=== PATIENT | female | born 1945 | race Caucasian/White ===

== ENCOUNTER 2019-08-18 17:31 | Emergency (ER) | payer MEDICARE, SELFPAY ==
[2019-08-18 17:47] VITALS: BP 141/50; PULSE 69; RESP 16; TEMP 37; O2SAT 99
--- NOTE | 2019-08-18 18:01 | ED.DENTAL ---
HPI - Dental/Oral General Chief complaint: Dental/Oral Stated complaint: Toothache Time Seen by Provider: 08/18/19 18:02 Source: patient and RN notes reviewed Mode of arrival: ambulatory Limitations: no limitations History of Present Illness HPI Narrative: This is a 74 years old female presented office for evaluation of dental pain for the last 2-day. Stated she supposed to have 3 teeth removed however she could not afford it at the time but she notes she has to get this done order and will get any better. Denies facial swelling, feeling ill, denies recent antibiotic use. MD Complaint: tooth pain Teeth map: 1. 30-32 needed to be removed. Onset (ago): day(s) (2) Duration: intermittent Severity: moderate Relieving factors: nothing Exacerbating factors: chewing Context: history of dental caries Related Data Home Medications Medication Instructions Recorded Confirmed CoQ-10 1 tablet DAILY 04/30/19 08/18/19 Daily Fiber 1 tablet DAILY 04/30/19 08/18/19 Fish Oil 1 tablet DAILY 04/30/19 08/18/19 Multi Vitamin 1 tablet DAILY 04/30/19 08/18/19 ascorbate calcium (vitamin C) 1 tablet DAILY 04/30/19 08/18/19 aspirin 81 mg PO DAILY 04/30/19 08/18/19 atorvastatin 40 mg PO DAILY 04/30/19 08/18/19 clopidogrel 75 mg PO DAILY 04/30/19 08/18/19 ferrous sulfate 1 tablet DAILY 04/30/19 08/18/19 furosemide 20 mg PO DAILY 04/30/19 08/18/19 glipizide 5 mg PO DAILY 04/30/19 08/18/19 losartan 25 mg PO DAILY 04/30/19 08/18/19 metformin 500 mg PO DAILY 04/30/19 08/18/19 metoprolol succinate 25 mg PO DAILY 04/30/19 08/18/19 omeprazole 40 mg PO DIRECTED 04/30/19 08/18/19 sotalol 120 mg PO DAILY 04/30/19 08/18/19 tamoxifen 20 mg PO DAILY 04/30/19 08/18/19 Allergies Allergy/AdvReac Type Severity Reaction Status Date / Time No Known Allergies Allergy Verified 07/11/18 08:49 Review of Systems Review of Systems: Narrative: CONSTITUTIONAL: Denies fever or feeling ill ENT: Denies throat pain CARDIOVASCULAR: Denies chest pain RESPIRATORY: Denies cough GASTROINTESTINAL: Denies abdominal pain, nausea, vomiting SKIN: Denies rash MUSCULOSKELETAL: Denies acute back pain NEUROLOGIC: Denies lightheaded PMFSH Past Medical History Medical History (Updated 08/18/19 @ 18:14 by SHANTAL Martinez) A-fib Anemia Arthritis CAD (coronary artery disease) Cataracts, bilateral CVA (cerebral vascular accident) DDD (degenerative disc disease) DM (diabetes mellitus) GERD (gastroesophageal reflux disease) History of colonic polyps History of GI bleed History of heart attack History of melena History of rectal polyps Hx of breast cancer Hypercholesteremia Hypertension Shingles TIA (transient ischemic attack) Surgical History Surgical History (Updated 04/30/19 @ 13:34 by Ant Rojas) History of cholecystectomy History of dilation and curettage History of mastectomy History of removal of cyst from finger Hx of bilateral cataract extraction Hx of cardiac cath with stent placement Hx of tubal ligation Family History Family History (Updated 01/02/19 @ 15:49 by DOCTOR UNKNOWN) Sibling Family history of malignant neoplasm of ovary, Onset Age: 60 Other Family history of malignant neoplasm Social History Social History Smoking status: Never smoker Second hand tobacco smoke exposure: No Alcohol intake: never Gender identity (if verbalized by the patient): Female Comments At time of signature, I agree with nursing past medical, surgical, social and family history. There is no relevant family history pertinent to the presenting complaint. Exam Narrative: Exam Narrative: GENERAL: This is a well-nourished, well-developed patient, in no apparent distress. EYES: Sclera and conjunctivae normal ENT: External ears normal. Nose and lips normal. Airway patent.The tooth in question is very carious and the gum is swollen and tender around it. There is no facial swelling, cervical or submandibular lymphadenopathy. The chaparrita
== END 2019-08-18 18:20 | disposition home or self-care (01) ==
PROVIDERS: Emergency Provider Nurse Practitioner; PCP Family Medicine
DX: K02.9 Dental caries, unspecified (principal); I48.91 Unspecified atrial fibrillation; D64.9 Anemia, unspecified; M19.90 Unspecified osteoarthritis, unspecified site; I25.10 Atherosclerotic heart disease of native coronary artery without angina pectoris; Z95.5 Presence of coronary angioplasty implant and graft; Z86.73 Personal history of transient ischemic attack (TIA), and cerebral infarction without residual deficits; E11.9 Type 2 diabetes mellitus without complications; K21.9 Gastro-esophageal reflux disease without esophagitis; I25.2 Old myocardial infarction; Z85.3 Personal history of malignant neoplasm of breast; Z90.10 Acquired absence of unspecified breast and nipple; E78.00 Pure hypercholesterolemia, unspecified; I10 Essential (primary) hypertension; Z98.41 Cataract extraction status, right eye; Z98.42 Cataract extraction status, left eye
CPT/HCPCS: 99213; G0463

== ENCOUNTER 2019-09-18 12:02 | Outpatient (CLI) | payer MEDICARE, SELFPAY ==
[2019-09-18 12:44] LABS: Alanine Aminotransferase 17 U/L (4-35); Blood Urea Nitrogen 12 mg/dL (7-17); Calcium 8.9 mg/dL (8.4-10.2); Carbon Dioxide 30 mmol/L (22-30); Chloride 101 mmol/L (98-107); Cholesterol 126 mg/dL (0-200); Estimated Glomerular Filt Rate > 60; Glucose 116 mg/dL (65-105); HDL Direct 36 mg/dL; Potassium 4.1 mmol/L (3.4-5.0); Sodium 137 mmol/L (137-145); Triglycerides 129 mg/dL (<150)
[2019-09-18 12:55] LABS: LDL Cholesterol Direct 65 mg/dL
[2019-09-18 12:58] LABS: Hemoglobin A1C 7.4 % (<5.7)
== END 2019-09-18 12:03 | disposition home or self-care (01) ==
PROVIDERS: PCP Family Medicine; Visit Provider Family Medicine
DX: E11.65 Type 2 diabetes mellitus with hyperglycemia (principal)
CPT/HCPCS: 36415; 80048; 80061; 83036; 84460

== ENCOUNTER 2019-10-01 12:40 | Emergency (ER) | payer MEDICARE, SELFPAY ==
[2019-10-01 12:55] VITALS: BP 145/71; PULSE 41; RESP 13; TEMP 36.5; O2SAT 99
[2019-10-01 12:56] VITALS: PULSE 42
--- NOTE | 2019-10-01 13:00 | ECG_ITS ---
Measurements Intervals [place] Rate: 54 P: 249 OH: 164 QRS: -28 QRSD: 81 T: 2 QT: 472 QTc: 451 Interpretive Statements ATRIAL TACHYCARDIA WITH SLOW VENTRICULAR RESPONSE DELAYED PRECORDIAL R/S TRANSITION INFERIOR INFARCT, AGE INDETERMINATE BORDERLINE T WAVE ABNORMALITY- ANTERIOR LEADS BASELINE ARTIFACT- V4 ABNORMAL ECG Electronically Signed On 10-01-2019 14:10:31 CDT by Mik Monsalve D.O.
[2019-10-01] MEDS: MECLIZINE HCL 25 MG TABLET PO (13:04)
[2019-10-01] MEDS: SODIUM CHLORIDE 0.9% IV 1,000 ML 999 ML IV CONT (13:05)
[2019-10-01 13:09] LABS: Glucose Point of Care 147 (65-105)
[2019-10-01 13:13] LABS: Basophils Absolute Auto 0.1 K/mm3 (0.0-0.1); Basophils Percent Auto 0.6 % (0.2-1.2); Eosinophils Absolute Auto 0.1 K/mm3 (0-0.3); Eosinophils Percent Auto 0.6 % (0-4.4); Hemoglobin 11.2 g/dL (12.0-15.0); Immature Granulocyte Absolute 0.03 K/mm3 (0.00-0.031); Immature Granulocyte Percent A 0.3 % (0-0.5); Lymphocytes Absolute Auto 2.53 K/mm3 (0.9-3.2); Mean Corpuscular HGB Conc 31.1 g/dl (32-36); Mean Corpuscular Hemoglobin 25.6 pg (26-34); Mean Corpuscular Volume 82.4 fl (80-100); Mean Platelet Volume 12.7 fl (7.4-10.4); Monocytes Absolute Auto 0.7 K/mm3 (0.1-0.6); Monocytes Percent Auto 6.1 % (2.6-8.5); Neutrophils Absolute Auto 8.1 K/mm3 (1.3-6.7); Neutrophils Percent Auto 70.4 % (45.5-73.1); Platelet Count Result 144 k/mm3 (150-375); Red Blood Count 4.37 M/mm3 (4.2-5.4); Red Cell Distribution Width 14.5 % (11.5-14.5); White Blood Count 11.5 K/mm3 (4.5-10.0)
[2019-10-01 13:33] LABS: Blood Urea Nitrogen 12 mg/dL (7-17); Calcium 9.2 mg/dL (8.4-10.2); Carbon Dioxide 29 mmol/L (22-30); Chloride 101 mmol/L (98-107); Estimated Glomerular Filt Rate > 60; Glucose 149 mg/dL (65-105); Sodium 137 mmol/L (137-145)
[2019-10-01 13:34] LABS: Add Urine Microscopic? NO; Appearance Urine Clear (Clear); Bacteria Urine Trace /hpf; Bilirubin Urine Negative (Negative); Blood Urine Negative (Negative); Color Urine Straw (Yellow); Glucose Urine UA Negative (Negative); Ketones Urine Negative (Negative); Leukocyte Esterase Ur Negative LEU/UL (Negative); Mucus Urine Rare /lpf; Nitrate Urine Negative (Negative); Protein Urine Negative (Negative); RBC Urine 0-2 /hpf (0-2); Specific Grav Ur 1.009 (1.001-1.035); Squamous Epithelial Cell Urine Occasional /hpf (Few); Urobilinogen Urine Negative mg/dL (<2.0); WBC Urine 0-3 /hpf
[2019-10-01 14:04] VITALS: BP 135/66; PULSE 58; RESP 14; O2SAT 96
[2019-10-01 15:10] VITALS: BP 122/59; PULSE 58; RESP 19; O2SAT 98
--- NOTE | 2019-10-01 15:11 | ED.NEUROSD ---
HPI - Neuro Symptoms/Deficit General Chief Complaint: Neuro Symptoms/Deficit Stated Complaint: Mini stroke or diabetes acting up Time Seen by Provider: 10/01/19 12:47 History of Present Illness HPI Narrative: Patient is a 74-year-old female who presents the ER with feelings of dizziness. Patient has history of TIA as well as history of diabetes. Concerned her blood sugar may be getting low. Patient reports that when she lays backwards or tilts her head backwards she feels entire removing or everything is spinning. She then feels hot and flushed over her entire body. No focal deficit in arm or leg. No slurred speech. Symptoms will last for several minutes and are occurring about every 1/2 hour. Does not take any medications. Related Data Home Medications Medication Instructions Recorded Confirmed CoQ-10 1 tablet DAILY 04/30/19 08/18/19 Daily Fiber 1 tablet DAILY 04/30/19 08/18/19 Fish Oil 1 tablet DAILY 04/30/19 08/18/19 Multi Vitamin 1 tablet DAILY 04/30/19 08/18/19 ascorbate calcium (vitamin C) 1 tablet DAILY 04/30/19 08/18/19 atorvastatin 40 mg PO DAILY 04/30/19 08/18/19 clopidogrel 75 mg PO DAILY 04/30/19 08/18/19 ferrous sulfate 1 tablet DAILY 04/30/19 08/18/19 furosemide 20 mg PO DAILY 04/30/19 08/18/19 glipizide 5 mg PO DAILY 04/30/19 08/18/19 losartan 25 mg PO DAILY 04/30/19 08/18/19 metformin 500 mg PO DAILY 04/30/19 08/18/19 metoprolol succinate 25 mg PO DAILY 04/30/19 08/18/19 omeprazole 40 mg PO DIRECTED 04/30/19 08/18/19 sotalol 120 mg PO DAILY 04/30/19 08/18/19 tamoxifen 20 mg PO DAILY 04/30/19 08/18/19 Allergies Allergy/AdvReac Type Severity Reaction Status Date / Time No Known Allergies Allergy Verified 10/01/19 13:00 Review of Systems Review of Systems: All systems reviewed & are unremarkable except as noted in HPI and below Constitutional: Constitutional: Denies chills, Reports fatigue and Denies fever(s) ENT: Reports vertigo, Denies nasal congestion and Denies sore throat Cardiovascular: Cardiovascular: Denies chest pain and Denies radiating jaw, neck or arm pain Respiratory: Respiratory: Denies cough, Denies dyspnea and Denies wheezing Gastrointestinal: Gastrointestinal: Denies abdominal pain, Denies nausea and Denies vomiting Neurologic: Reports dizziness, Denies syncope, Denies focal weakness and Denies numbness PMFSH Past Medical History Medical History (Updated 10/01/19 @ 15:36 by Crow Thornton MD) A-fib Anemia Arthritis CAD (coronary artery disease) Cataracts, bilateral CVA (cerebral vascular accident) DDD (degenerative disc disease) DM (diabetes mellitus) GERD (gastroesophageal reflux disease) History of colonic polyps History of GI bleed History of heart attack History of melena History of rectal polyps Hx of breast cancer Hypercholesteremia Hypertension Shingles TIA (transient ischemic attack) Surgical History Surgical History (Updated 04/30/19 @ 13:34 by Ant Rojas) History of cholecystectomy History of dilation and curettage History of mastectomy History of removal of cyst from finger Hx of bilateral cataract extraction Hx of cardiac cath with stent placement Hx of tubal ligation Family History Family History (Updated 01/02/19 @ 15:49 by DOCTOR UNKNOWN) Sibling Family history of malignant neoplasm of ovary, Onset Age: 60 Other Family history of malignant neoplasm Social History Social History Smoking status: Never smoker Second hand tobacco smoke exposure: No Alcohol intake: never Gender identity (if verbalized by the patient): Female Exam Narrative: Exam Narrative: GENERAL: Well-appearing, well-nourished, and in no acute distress. HEAD: Normocephalic, atraumatic. EYES: PERRL and EOMI. right gaze nystagmus ENT: Mucous membranes moist. TMs normal bilaterally. NECK: Supple. CHEST: Clear to auscultation. No respiratory distress. HEART: Regular rate and rhythm. Normal peripheral pulses. ABDOMEN: Soft, nontender,
[2019-10-01 15:47] VITALS: BP 120/60; PULSE 55; RESP 16; O2SAT 98
== END 2019-10-01 15:48 | disposition home or self-care (01) ==
PROVIDERS: Emergency Provider Emergency Medicine; PCP Family Medicine
DX: R42 Dizziness and giddiness (principal); R00.1 Bradycardia, unspecified; I48.91 Unspecified atrial fibrillation; D64.9 Anemia, unspecified; M19.90 Unspecified osteoarthritis, unspecified site; I25.10 Atherosclerotic heart disease of native coronary artery without angina pectoris; E11.9 Type 2 diabetes mellitus without complications; I10 Essential (primary) hypertension; Z86.73 Personal history of transient ischemic attack (TIA), and cerebral infarction without residual deficits; Z79.84 Long term (current) use of oral hypoglycemic drugs; Z85.3 Personal history of malignant neoplasm of breast; E78.00 Pure hypercholesterolemia, unspecified; Z95.5 Presence of coronary angioplasty implant and graft; Z98.42 Cataract extraction status, left eye; Z98.41 Cataract extraction status, right eye; Z90.10 Acquired absence of unspecified breast and nipple
CPT/HCPCS: 36415; 80048; 81003; 85025; 93005; 96360; 99283; A9270; J7030

== ENCOUNTER 2019-10-04 10:32 | Outpatient (CLI) | payer MEDICARE, SELFPAY ==
--- NOTE | ~2019-10-04 | MR_ITS ---
EXAMINATION: MR brain/brain stem wo con DATE: 10/04/2019 11:48 INDICATION: TIA. TECHNIQUE: Magnetic resonance imaging (MRI) of the brain and brainstem was performed without intraven ous contrast. Sequences included sagittal and axial T1-weighted SE, axial diffusion-weighted FS SE, a xial T2*-weighted GRE, axial T2-weighted FLAIR Propeller, and axial T2-weighted Propeller. Apparent d iffusion coefficient (ADC) maps were created. COMPARISON: CT dated 02/17/2008. FINDINGS: Normal brain parenchymal volume. Normal david-white differentiation. There are scattered mil d periventricular and subcortical white matter changes, most likely related to small vessel ischemic disease (microangiopathy). No ventriculomegaly or midline shift. No acute intracranial infarction or hemorrhage. No significant mass or mass effect. Midline sagittal images are unremarkable. Structures of the posterior fossa including 7/8th cranial nerve complexes are normal. Orbits are symmetric witho ut disconjugate gaze. Paranasal sinuses are unremarkable. IMPRESSION: 1. No acute intracranial abnormality. 2: Chronic age-related findings. Reviewed, dictated and finalized at location A.
== END 2019-10-04 10:33 | disposition home or self-care (01) ==
PROVIDERS: PCP Family Medicine; Visit Provider Family Medicine
DX: G45.9 Transient cerebral ischemic attack, unspecified (principal)
CPT/HCPCS: 70551

== ENCOUNTER 2020-01-16 17:15 | Outpatient (CLI) | payer MEDICARE, SELFPAY ==
--- NOTE | ~2020-01-16 | MM_ITS ---
EXAMINATION: MM screening [facility] BI w david HISTORY: Screening TECHNIQUE: Craniocaudal and mediolateral oblique 3-D tomosynthesis images were obtained and synthetic 2-D images were generated. CAD analysis was submitted and interpreted. COMPARISON: Comparison to multiple prior studies sequentially, with oldest reviewed study dated 06/2013. BREAST PARENCHYMAL COMPOSITION: Breast composed of scattered areas of fibroglandular density FINDINGS: There is distortion in both breasts with areas of coarse calcification, consistent with fat necrosis. There is no evidence of suspicious mass, calcification, or architectural distortion to sug gest malignancy in either breast. There has been no suspicious interval change. IMPRESSION: 1. No mammographic evidence of malignancy. 2. Recommend routine screening mammography in one year. BI-RADS Category 2: Benign finding(s). Reviewed, dictated and finalized at location A.
== END 2020-01-16 17:16 | disposition home or self-care (01) ==
LOC: ANHIMG 17:20
PROVIDERS: PCP Family Medicine; Visit Provider Internal Medicine Medical Oncology
DX: Z12.31 Encounter for screening mammogram for malignant neoplasm of breast (principal)
CPT/HCPCS: 77063; 77067

== ENCOUNTER 2020-04-13 03:34 | Outpatient (CLI) | payer MEDICARE, SELFPAY ==
[2020-04-13 20:39] LABS: SARS-CoV-2 RNA PCR Negative
== END 2020-04-13 03:35 | disposition home or self-care (01) ==
LOC: ANHCOVIDDT 03:34
PROVIDERS: PCP Family Medicine; Visit Provider Internal Medicine Gastroenterology
DX: Z01.812 Encounter for preprocedural laboratory examination (principal); Z20.828 Contact with and (suspected) exposure to other viral communicable diseases
CPT/HCPCS: 87635; C9803; U0003

== ENCOUNTER 2020-04-16 00:28 | Day surgery (SDC) | payer MEDICARE, SELFPAY ==
[2020-04-09 15:20] VITALS: BMI 32.5
--- NOTE | 2020-04-16 08:02 | WPDANESEPPF ---
Anes - Initial Pre Proc Eval Procedure: Operation Date: 04/16/20 10:00 Proposed Procedures p Esophagogastroduodenoscopy & Screening Colonoscopy - Jr Leon MD Date/Time: 04/16/20 08:02 Surgeon: Jr Leon MD Pre Op Diagnosis: Hx Of Colon Polyps, Gastric Polyps Patient Data Age: 75 Gender: F Height: 1.57 m Weight: 80.9 kg Allergies Allergy/AdvReac Type Severity Reaction Status Date / Time No Known Allergies Allergy Verified 04/16/20 08:56 Home Medications Medication Instructions Recorded Confirmed Type CoQ-10 1 tablet DAILY 04/30/19 04/09/20 History Daily Fiber 1 tablet BID 04/30/19 04/09/20 History Fish Oil 1 tablet DAILY 04/30/19 04/09/20 History Multi Vitamin 1 tablet DAILY 04/30/19 04/09/20 History ascorbate calcium (vitamin C) 1 tablet DAILY 04/30/19 04/09/20 History atorvastatin 40 mg PO DAILY 04/30/19 04/09/20 History clopidogrel 75 mg PO DAILY 04/30/19 04/09/20 History ferrous sulfate 1 tablet DAILY 04/30/19 04/09/20 History furosemide 20 mg PO DAILY 04/30/19 04/09/20 History glipizide 5 mg PO BID 04/30/19 04/09/20 History losartan 25 mg PO DAILY 04/30/19 04/09/20 History metformin 500 mg PO DAILY 04/30/19 04/09/20 History metoprolol succinate 25 mg PO DAILY 04/30/19 04/09/20 History omeprazole 40 mg PO DAILY 04/30/19 04/09/20 History sotalol 120 mg PO BID 04/30/19 04/16/20 History tamoxifen 20 mg PO DAILY 04/30/19 04/09/20 History Patient hx anesthesia problems: none Family hx anesthesia problems: none PMFSH Past Medical History Medical History (Updated 04/16/20 @ 08:05 by Pierre Lemos MD) A-fib Anemia Arthritis CAD (coronary artery disease) Cataracts, bilateral CVA (cerebral vascular accident) DDD (degenerative disc disease) DM (diabetes mellitus) GERD (gastroesophageal reflux disease) History of colonic polyps History of GI bleed History of heart attack History of melena History of rectal polyps Hx of breast cancer Hypercholesteremia Hypertension Obesity Shingles TIA (transient ischemic attack) Surgical History Surgical History History of cholecystectomy History of dilation and curettage History of mastectomy History of removal of cyst from finger Hx of bilateral cataract extraction Hx of cardiac cath with stent placement Hx of tubal ligation Family History Family History Sibling Family history of malignant neoplasm of ovary, Onset Age: 60 Other Family history of malignant neoplasm Social History Social History Smoking status: Never smoker Second hand tobacco smoke exposure: No Alcohol intake: never Substance use: never Substance use type: does not use Living arrangements: with family Gender identity (if verbalized by the patient): Female Sexual Orientation (if Verbalized by the Patient): Straight or Heterosexual Spiritual care concerns: No Anes - Eval Final PreProcedure Day of Procedure 04/16/20 08:02 Patient weight: obese Heart: regular rate and rhythm Lungs: clear to auscultation and normal air movement Airway: Mallampati scale class II Neurological: alert and oriented Last oral intake: >/= 8 hours ASA classification: III Emergent: no Anesthetic plan: proceed Anesthesia type and monitoring: general GIVS Informed Consent: The patient's anesthetic plan and its attendant risks and benefits were discussed with the patient/family/POA. Questions were solicited and answers provided to the satisfaction of the patient/family/POA.
[2020-04-16 09:04] VITALS: BP 157/65; PULSE 68; RESP 16; TEMP 36.8; O2SAT 98
[2020-04-16 09:20] LABS: Glucose Point of Care 141 (65-105)
[2020-04-16] MEDS: LACTATED RINGERS 1,000 ML 150 ML IV CONT (09:24)
--- NOTE | 2020-04-16 09:28 | WPDGICN ---
Assessment and Plan Assessment and plan (1) Gastric polyps: Code(s): K31.7 - Polyp of stomach and duodenum Status: Acute Assessment and Plan: Patient has a history of very large bleeding gastric polyps. Plan is for follow-up examination at this time. Patient remains on omeprazole which will be continued. Further recommendations may be given after endoscopy. (2) History of colon polyps: Code(s): Z86.010 - Personal history of colonic polyps Status: Acute Assessment and Plan: Patient has a history of recurrent colon polyps. Most recent colonoscopy 5 years ago. Plans for surveillance colonoscopy at this time. (3) A-fib: Code(s): I48.91 - Unspecified atrial fibrillation Status: Acute Assessment and Plan: <del>Patient</del> <del>is</del> <del>on</del> <del>Plavix</del> <del>gives</del> <del>a</del> <del>history</del> <del>of</del> <del>atrial</del> <del>fibrillation</del> <del>anticoagulation</del> <del>will</del> <del>be</del> <del>held</del> <del>in</del> <del>anticipation</del> <del>of</del> <del>endoscopy</del> <del>and</del> <del>restarted</del> <del>shortly</del> <del>thereafter.</del> GI Consult Note Consult date/time: 04/16/20 09:28 HPI: Jackie Waddell is a 75 year old female Seen in evaluation at the request of Dr. Dk Kong. patient has a history of colon and gastric polyps. At the time of endoscopy 1 year ago had rather large pre-pyloric gastric polyp that was partially obstructing. Patient presents today for follow-up examination. She denies any abdominal pain. Denies any nausea or bleeding. Previous melena has resolved. Additionally patient has a history of colon polyps. She has had these on several occasions in the past most recently 5 years ago. She denies any blood in her stools. Her family history is noncontributory. Review of Systems Review of Systems: All systems reviewed & are unremarkable except as noted in HPI and below PMFSH Past Medical History Medical History (Updated 04/16/20 @ 09:31 by Jr Leon MD) A-fib Anemia Arthritis CAD (coronary artery disease) Cataracts, bilateral CVA (cerebral vascular accident) DDD (degenerative disc disease) DM (diabetes mellitus) GERD (gastroesophageal reflux disease) History of colonic polyps History of GI bleed History of heart attack History of melena History of rectal polyps Hx of breast cancer Hypercholesteremia Hypertension Obesity Shingles TIA (transient ischemic attack) Surgical History Surgical History History of cholecystectomy History of dilation and curettage History of mastectomy History of removal of cyst from finger Hx of bilateral cataract extraction Hx of cardiac cath with stent placement Hx of tubal ligation Family History Family History Sibling Family history of malignant neoplasm of ovary, Onset Age: 60 Other Family history of malignant neoplasm Social History Social History Smoking status: Never smoker Second hand tobacco smoke exposure: No Alcohol intake: never Substance use: never Substance use type: does not use Living arrangements: with family Gender identity (if verbalized by the patient): Female Sexual Orientation (if Verbalized by the Patient): Straight or Heterosexual Spiritual care concerns: No Meds Home Medications and Allergies Home Medications Medication Instructions Recorded Confirmed Type CoQ-10 1 tablet DAILY 04/30/19 04/09/20 History Daily Fiber 1 tablet BID 04/30/19 04/09/20 History Fish Oil 1 tablet DAILY 04/30/19 04/09/20 History Multi Vitamin 1 tablet DAILY 04/30/19 04/09/20 History ascorbate calcium (vitamin C) 1 tablet DAILY 04/30/19 04/09/20 History atorvastatin 40 mg PO DAILY 04/30/19 04/09/20 History clopidogrel 75 mg PO DAILY 1
[2020-04-16] MEDS: BENZOCAINE (*SP) 60 ML SPRAY CAN (HURRICAINE) 1 SPRAY MUCOUS MEM (10:35)
--- NOTE | 2020-04-16 10:57 | SUR.OPER ---
EGD ENDED 1050, COLONOSCOPY STARTED 1056
[2020-04-16 11:12] VITALS: BP 116/50; PULSE 58; RESP 19; O2SAT 97
[2020-04-16 11:22] VITALS: BP 131/56; PULSE 65; RESP 18; O2SAT 98
[2020-04-16 11:32] VITALS: BP 150/68; PULSE 65; RESP 18; O2SAT 98
== END 2020-04-16 12:03 | disposition home or self-care (01) ==
PROVIDERS: PCP Family Medicine; Visit Provider Internal Medicine Gastroenterology
PROC: 0DJ08ZZ Inspection of Upper Intestinal Tract, Via Natural or Artificial Opening Endoscopic (ICD-10-PCS; CPT 43235; principal; 2020-04-16 10:00)
DX: Z12.11 Encounter for screening for malignant neoplasm of colon (principal); D12.4 Benign neoplasm of descending colon; K64.8 Other hemorrhoids; K31.7 Polyp of stomach and duodenum; I48.91 Unspecified atrial fibrillation; I25.10 Atherosclerotic heart disease of native coronary artery without angina pectoris; I10 Essential (primary) hypertension; E78.00 Pure hypercholesterolemia, unspecified; K21.9 Gastro-esophageal reflux disease without esophagitis; E11.9 Type 2 diabetes mellitus without complications; I25.2 Old myocardial infarction; Z86.73 Personal history of transient ischemic attack (TIA), and cerebral infarction without residual deficits; D64.9 Anemia, unspecified; Z85.3 Personal history of malignant neoplasm of breast; E66.9 Obesity, unspecified; Z68.32 Body mass index [BMI] 32.0-32.9, adult; Z79.84 Long term (current) use of oral hypoglycemic drugs; Z79.02 Long term (current) use of antithrombotics/antiplatelets; Z79.810 Long term (current) use of selective estrogen receptor modulators (SERMs)
CPT/HCPCS: 45385; 43251; 88305; J1100; J2405; J2704; J7120

== ENCOUNTER 2020-04-19 22:50 | Emergency (ER) | payer MEDICARE, SELFPAY ==
--- NOTE | ~2020-04-19 | XR_ITS ---
EXAMINATION: XR hip LT 2V w AP pelvis DATE: 04/20/2020 03:01 INDICATION: Left hip pain. TECHNIQUE: An anteroposterior view of the pelvis and 2 views of left hip were obtained. COMPARISON: Pelvis and left hip radiograph 05/06/2016 FINDINGS: There is dextrocurvature and moderate spondylosis of lumbar spine. There is mild osteoarthr itis of the hips. No fracture. IMPRESSION: 1. Mild osteoarthritis of the hips. Reviewed, dictated and finalized at location A. NEERING EQUIPMENT OPERATOR
--- NOTE | ~2020-04-19 | CT_ITS ---
EXAMINATION: CT knee LT wo con DATE: 04/20/2020 05:00 INDICATION: Left knee pain. TECHNIQUE: Computed tomography (CT) of the left knee was performed without intravenous contrast. Auto mated exposure control and iterative reconstruction technique were employed. The dose-length product was 471.38 mGy-cm. COMPARISON: Left knee radiographs 04/20/2020 FINDINGS: Bone alignment is normal. No fracture. There is moderate osteoarthritis of medial and later al compartments and mild osteoarthritis of patellofemoral compartment. There is a large knee joint ef fusion with loose bodies measuring up to 8 mm in the intercondylar notch. There is a moderate-sized B karrie's cyst. IMPRESSION: 1. Moderate left knee osteoarthritis. 2. Large left knee joint effusion with loose bodies. 3. Moderate-sized Crawford's cyst. Reviewed, dictated and finalized at location A. E TESTER
--- NOTE | ~2020-04-19 | XR_ITS ---
EXAMINATION: XR knee LT min 4V DATE: 04/20/2020 03:01 INDICATION: Left knee pain and swelling. TECHNIQUE: 4 views of left knee were obtained. COMPARISON: Left knee radiographs 01/02/2019 FINDINGS: Bone alignment is normal. No fracture. There is moderate osteoarthritis of medial compartme nt and mild osteoarthritis of lateral and patellofemoral compartments. There is a large knee joint ef fusion. IMPRESSION: 1. Moderate left knee osteoarthritis. 2. Large left knee joint effusion. Reviewed, dictated and finalized at location A. INTERN
[2020-04-19 23:08] VITALS: BP 147/46; PULSE 69; RESP 18; TEMP 36.7; O2SAT 97
[2020-04-20] MEDS: ONDANSETRON INJ 4 MG/2 ML VIAL IV PUSH (02:29)
[2020-04-20] MEDS: MORPHINE SULFATE (*CRX) 4 MG/ML INJ IV PUSH ×2 (02:32→03:59)
--- NOTE | 2020-04-20 02:43 | ED.LOWEXIN ---
HPI - Extremity Injury (Lower) General Chief Complaint: Extremity Injury, Lower <Rosemary Obrien MD - Last Filed: 04/24/20 18:10> Stated Complaint: left leg pain, no injury <Rosemary Obrien MD - Last Filed: 04/24/20 18:10> Time Seen by Provider: 04/20/20 01:42 <Rosemary Obrien MD - Last Filed: 04/24/20 18:10> Source: patient <Rosemary Obrien MD - Last Filed: 04/24/20 18:10> Mode of arrival: wheelchair <Rosemary Obrien MD - Last Filed: 04/24/20 18:10> Limitations: no limitations <Rosemary Obrien MD - Last Filed: 04/24/20 18:10> History of Present Illness HPI Narrative: This patient is a 75 year old female with history of left knee osteoarthritis who presents for evaluation of left leg pain starting Monday morning. She reports on Monday she was able to walk around [employer] with out any difficulty. She woke up Monday morning with pain to her entire left leg. She states her pain is worse in her left calf and behind her left knee. She states the pain has progress and she feels it up to her left thigh. She has pain with any movement. She has also noticed swelling to her left lower leg and left knee. She denies any injury. Her states Dr. Sidhu has spoken about a left knee replacement. <Rosemary Obrien MD - Last Filed: 04/24/20 18:10> Related Data Home Medications: Home Medications Medication Instructions Recorded Confirmed CoQ-10 1 tablet DAILY 04/30/19 04/22/20 Daily Fiber 1 tablet BID 04/30/19 04/22/20 Fish Oil 1 tablet DAILY 04/30/19 04/22/20 Multi Vitamin 1 tablet DAILY 04/30/19 04/22/20 ascorbate calcium (vitamin C) 1 tablet DAILY 04/30/19 04/22/20 atorvastatin 40 mg PO DAILY 04/30/19 04/22/20 clopidogrel 75 mg PO DAILY 04/30/19 04/22/20 ferrous sulfate 1 tablet DAILY 04/30/19 04/22/20 glipizide 5 mg PO BID 04/30/19 04/22/20 losartan 25 mg PO DAILY 04/30/19 04/22/20 metformin 500 mg PO DAILY 04/30/19 04/22/20 metoprolol succinate 25 mg PO DAILY 04/30/19 04/22/20 omeprazole 40 mg PO DAILY 04/30/19 04/22/20 sotalol 120 mg PO BID 04/30/19 04/22/20 tamoxifen 20 mg PO DAILY 04/30/19 04/22/20 <Rosemary Obrien MD - Last Filed: 04/24/20 18:10> Allergies/Adverse Reactions: Allergies Allergy/AdvReac Type Severity Reaction Status Date / Time No Known Allergies Allergy Verified 04/16/20 08:56 <Rosemary Obrien MD - Last Filed: 04/24/20 18:10> Review of Systems Review of Systems: All systems reviewed & are unremarkable except as noted in HPI and below <Rosemary Obrien MD - Last Filed: 04/24/20 18:10> Constitutional: Constitutional: Denies chills and Denies fever(s) <Rosemary Obrien MD - Last Filed: 04/24/20 18:10> Cardiovascular: Cardiovascular: Denies chest pain <Rosemary Obrien MD - Last Filed: 04/24/20 18:10> Respiratory: Respiratory: Denies cough and Denies dyspnea <Rosemary Obrien MD - Last Filed: 04/24/20 18:10> [facility] Past Medical History Medical History: Medical History A-fib Anemia Arthritis CAD (coronary artery disease) Cataracts, bilateral CVA (cerebral vascular accident) DDD (degenerative disc disease) DM (diabetes mellitus) GERD (gastroesophageal reflux disease) History of colonic polyps History of GI bleed History of heart attack History of melena History of rectal polyps Hx of breast cancer Hypercholesteremia Hypertension Obesity Shingles TIA (transient ischemic attack) <Rosemary Obrien MD - Last Filed: 04/24/20 18:10> Surgical History Surgical History: Surgical History History of cholecystectomy History of dilation and curettage History of mastectomy History of removal of cyst from finger Hx of bilateral cataract extraction Hx of cardiac cath with stent placement Hx of tubal ligation <Rosemary Obrien MD - Last Filed: 04/24/20 18:10> Family History
[2020-04-20 02:48] LABS: Basophils Percent Auto 0.2 % (0.2-1.2); Eosinophils Percent Auto 0.1 % (0-4.4); Hematocrit 33.8 % (37.0-47.0); Hemoglobin 10.5 g/dL (12.0-15.0); Immature Granulocyte Absolute 0.03 K/mm3 (0.00-0.031); Immature Granulocyte Percent A 0.2 % (0-0.5); Lymphocytes Absolute Auto 1.87 K/mm3 (0.9-3.2); Lymphocytes Percent Auto 14.9 % (18.3-44.2); Mean Corpuscular HGB Conc 31.1 g/dl (32-36); Mean Corpuscular Hemoglobin 25.6 pg (26-34); Mean Corpuscular Volume 82.4 fl (80-100); Mean Platelet Volume 12.7 fl (7.4-10.4); Monocytes Absolute Auto 1.2 K/mm3 (0.1-0.6); Monocytes Percent Auto 9.7 % (2.6-8.5); Neutrophils Absolute Auto 9.4 K/mm3 (1.3-6.7); Neutrophils Percent Auto 74.9 % (45.5-73.1); Platelet Count Result 119 k/mm3 (150-375); Red Cell Distribution Width 14.6 % (11.5-14.5); White Blood Count 12.6 K/mm3 (4.5-10.0)
[2020-04-20 02:49] LABS: Alanine Aminotransferase 16 U/L (4-35); Albumin Level 3.4 g/dL (3.5-5.1); Alkaline Phosphatase 66 U/L (38-126); Anion Gap 6 mmol/L (8-16); Aspartate Amino Transferase 26 U/L (14-36); Bilirubin,Total 0.5 mg/dL (0.2-1.3); Blood Urea Nitrogen 11 mg/dL (7-17); Calcium 8.8 mg/dL (8.4-10.2); Carbon Dioxide 31 mmol/L (22-30); Chloride 102 mmol/L (98-107); Creatine Kinase 34 U/L (30-135); Estimated Glomerular Filt Rate > 60; Glucose 186 mg/dL (65-105); Potassium 3.7 mmol/L (3.4-5.0); Sodium 139 mmol/L (137-145)
[2020-04-20 02:51] LABS: INR 1.2; Prothrombin Time 15.3 Seconds (11.1-14.7)
[2020-04-20 02:52] LABS: Partial Thromboplastin Time 31.2 SECONDS (22.3-36.8)
[2020-04-20 02:54] LABS: D Dimer 0.43 ug/mL (<0.48)
[2020-04-20 02:57] LABS: CRP 2.8 mg/dL (<1.0)
[2020-04-20] MEDS: LIDOCAINE HCL 1% LOCAL INJ 20 ML VIAL (04:35)
[2020-04-20] MEDS: diazePAM INJ (*CRX) 10 MG/2 ML SYRINGE 2.5 MG IV PUSH (04:56)
--- NOTE | 2020-04-20 07:15 | PC.NURSE ---
Report received from ROSELINE Lin. Fluid aspirate from knee walked down to lab.
[2020-04-20 08:10] LABS: Source Synovial Fluid Synovial fluid
[2020-04-20 08:11] LABS: Appearance Synovial Fluid Cloudy (Clear); Color Synovial Fluid Red (Colorless); Monocytes Synovial Fluid 3 %; Neutrophils Synovial Fluid 95 % (0-25)
[2020-04-20 08:12] LABS: Other Cells Synovial Fluid 2 %
[2020-04-20 08:29] LABS: Crystals Synovial Fluid Few Cppd (None Seen)
[2020-04-20] MEDS: predniSONE 20 MG TABLET 40 MG PO (10:11)
[2020-04-22 13:38] LABS: Glucose Synovial Fluid 53 mg/dL
== END 2020-04-20 10:12 | disposition home or self-care (01) ==
PROVIDERS: General Practice; Emergency Provider Emergency Medicine; PCP Family Medicine
DX: M25.462 Effusion, left knee (principal); M79.605 Pain in left leg; M11.262 Other chondrocalcinosis, left knee; I48.91 Unspecified atrial fibrillation; D64.9 Anemia, unspecified; Z86.73 Personal history of transient ischemic attack (TIA), and cerebral infarction without residual deficits; E11.9 Type 2 diabetes mellitus without complications; K21.9 Gastro-esophageal reflux disease without esophagitis; I25.2 Old myocardial infarction; Z87.19 Personal history of other diseases of the digestive system; Z85.3 Personal history of malignant neoplasm of breast; E78.00 Pure hypercholesterolemia, unspecified; I10 Essential (primary) hypertension; E66.9 Obesity, unspecified; Z98.42 Cataract extraction status, left eye; Z98.41 Cataract extraction status, right eye; M17.12 Unilateral primary osteoarthritis, left knee; Z79.84 Long term (current) use of oral hypoglycemic drugs
CPT/HCPCS: 20610; 36415; 73502; 73564; 73700; 80053; 82550; 82945; 84157; 84550; 85025; 85380; 85610; 85730; 86140; 87070; 87075; 87205; 88108; 89051; 89060; 96374; 96375; 96376; 99284; J0131; J2270; J2405; J3360; J7512

== ENCOUNTER 2020-05-06 09:47 | Outpatient (CLI) | payer MEDICARE, SELFPAY ==
[2020-05-06 10:43] LABS: Hematocrit 33.8 % (37.0-47.0); Hemoglobin 10.6 g/dL (12.0-15.0); Mean Corpuscular HGB Conc 31.4 g/dl (32-36); Mean Corpuscular Volume 79.7 fl (80-100); Mean Platelet Volume 12.4 fl (7.4-10.4); Platelet Count Result 114 k/mm3 (150-375); Red Blood Count 4.24 M/mm3 (4.2-5.4); Red Cell Distribution Width 14.2 % (11.5-14.5); White Blood Count 9.2 K/mm3 (4.5-10.0)
[2020-05-06 10:58] LABS: Alanine Aminotransferase 18 U/L (4-35); Anion Gap 5 mmol/L (8-16); Blood Urea Nitrogen 12 mg/dL (7-17); Calcium 8.9 mg/dL (8.4-10.2); Carbon Dioxide 33 mmol/L (22-30); Chloride 101 mmol/L (98-107); Cholesterol 132 mg/dL (0-200); Estimated Glomerular Filt Rate > 60; Glucose 154 mg/dL (65-105); HDL Direct 41 mg/dL; Potassium 3.7 mmol/L (3.4-5.0); Sodium 139 mmol/L (137-145); Triglycerides 135 mg/dL (<150)
[2020-05-06 11:08] LABS: LDL Cholesterol Direct 66 mg/dL
[2020-05-06 12:10] LABS: MALB Creatinine Ratio 17.2 mg/g (0-30); Microalbumin Urine Random 31.3 mg/L (0-16.7)
[2020-05-06 12:31] LABS: Hemoglobin A1C 7.6 % (<5.7)
== END 2020-05-06 09:48 | disposition home or self-care (01) ==
LOC: ANHLAB 09:51
PROVIDERS: PCP Family Medicine; Visit Provider Family Medicine
DX: E11.65 Type 2 diabetes mellitus with hyperglycemia (principal); D64.9 Anemia, unspecified
CPT/HCPCS: 36415; 80048; 80061; 82043; 83036; 84460; 85027

== ENCOUNTER 2020-06-18 09:54 | Outpatient (CLI) | payer MEDICARE, SELFPAY ==
[2020-06-18 10:12] LABS: Basophils Percent Auto 0.3 % (0.2-1.2); Eosinophils Percent Auto 0.4 % (0-4.4); Hematocrit 35.8 % (37.0-47.0); Immature Granulocyte Absolute 0.03 K/mm3 (0.00-0.031); Immature Granulocyte Percent A 0.3 % (0-0.5); Lymphocytes Absolute Auto 1.88 K/mm3 (0.9-3.2); Lymphocytes Percent Auto 18.4 % (18.3-44.2); Mean Corpuscular HGB Conc 30.7 g/dl (32-36); Mean Corpuscular Hemoglobin 25.1 pg (26-34); Mean Corpuscular Volume 81.7 fl (80-100); Mean Platelet Volume 12.2 fl (7.4-10.4); Monocytes Absolute Auto 0.6 K/mm3 (0.1-0.6); Monocytes Percent Auto 5.7 % (2.6-8.5); Neutrophils Absolute Auto 7.6 K/mm3 (1.3-6.7); Neutrophils Percent Auto 74.9 % (45.5-73.1); Platelet Count Result 128 k/mm3 (150-375); Red Blood Count 4.38 M/mm3 (4.2-5.4); Red Cell Distribution Width 14.5 % (11.5-14.5); White Blood Count 10.2 K/mm3 (4.5-10.0)
[2020-06-18 10:21] LABS: Hemoglobin A1C 7.8 % (<5.7)
[2020-06-18 10:25] LABS: Alanine Aminotransferase 18 U/L (4-35); Albumin Level 3.6 g/dL (3.5-5.1); Alkaline Phosphatase 70 U/L (38-126); Anion Gap 5 mmol/L (8-16); Aspartate Amino Transferase 37 U/L (14-36); Bilirubin,Total 0.5 mg/dL (0.2-1.3); Blood Urea Nitrogen 10 mg/dL (7-17); Calcium 8.6 mg/dL (8.4-10.2); Carbon Dioxide 32 mmol/L (22-30); Chloride 101 mmol/L (98-107); Estimated Glomerular Filt Rate > 60; Glucose 159 mg/dL (65-105); Sodium 138 mmol/L (137-145)
[2020-06-18 10:45] LABS: Iron 39 ug/dL (37-170)
[2020-06-18 10:54] LABS: Percent Iron Saturation 10 % (20-50)
[2020-06-18 10:56] LABS: Thyroid Stimulating Hormone 0.633 uIU/mL (0.465-4.680); Vitamin D 25 Hydroxy 34.3 ng/mL
[2020-06-18 11:02] LABS: Creatinine Urine 136.7 mg/dL
[2020-06-18 11:07] LABS: MALB Creatinine Ratio 19.2 mg/g (0-30); Microalbumin Urine Random 26.2 mg/L (0-16.7)
== END 2020-06-18 09:55 | disposition home or self-care (01) ==
PROVIDERS: PCP Internal Medicine; Visit Provider Internal Medicine
DX: D50.9 Iron deficiency anemia, unspecified (principal); E11.9 Type 2 diabetes mellitus without complications; E78.5 Hyperlipidemia, unspecified; I10 Essential (primary) hypertension; I25.10 Atherosclerotic heart disease of native coronary artery without angina pectoris; I48.91 Unspecified atrial fibrillation; E55.9 Vitamin D deficiency, unspecified
CPT/HCPCS: 36415; 80053; 82043; 82306; 82728; 83036; 83540; 83550; 84443; 85025

== ENCOUNTER 2020-09-25 12:01 | Outpatient (CLI) | payer MEDICARE, SELFPAY ==
[2020-09-25 12:26] LABS: Basophils Absolute Auto 0.1 K/mm3 (0.0-0.1); Basophils Percent Auto 0.6 % (0.2-1.2); Eosinophils Absolute Auto 0.1 K/mm3 (0-0.3); Eosinophils Percent Auto 0.4 % (0-4.4); Hematocrit 28.5 % (37.0-47.0); Immature Granulocyte Absolute 0.03 K/mm3 (0.00-0.031); Immature Granulocyte Percent A 0.2 % (0-0.5); Lymphocytes Absolute Auto 1.82 K/mm3 (0.9-3.2); Mean Corpuscular HGB Conc 28.1 g/dl (32-36); Mean Corpuscular Hemoglobin 23.4 pg (26-34); Mean Corpuscular Volume 83.3 fl (80-100); Mean Platelet Volume 12.2 fl (7.4-10.4); Monocytes Absolute Auto 0.7 K/mm3 (0.1-0.6); Neutrophils Absolute Auto 9.4 K/mm3 (1.3-6.7); Neutrophils Percent Auto 77.8 % (45.5-73.1); Platelet Count Result 147 k/mm3 (150-375); Red Blood Count 3.42 M/mm3 (4.2-5.4); Red Cell Distribution Width 14.5 % (11.5-14.5); White Blood Count 12.1 K/mm3 (4.5-10.0)
[2020-09-25 12:36] LABS: Anion Gap 7 mmol/L (8-16); Blood Urea Nitrogen 16 mg/dL (7-17); Calcium 9.4 mg/dL (8.4-10.2); Carbon Dioxide 30 mmol/L (22-30); Chloride 100 mmol/L (98-107); Estimated Glomerular Filt Rate > 60; Glucose 175 mg/dL (65-105); Potassium 4.6 mmol/L (3.4-5.0); Sodium 137 mmol/L (137-145)
[2020-09-25 13:45] LABS: Hypochromasia 1+ (NORMAL); Platelet Estimate Adequate (Adequate)
[2020-09-25 13:46] LABS: Anisocytosis 1+ (NORMAL); Ovalocytes 1+ (NORMAL)
== END 2020-09-25 12:02 | disposition home or self-care (01) ==
LOC: ANHLAB 12:06
PROVIDERS: PCP Internal Medicine; Visit Provider Internal Medicine Cardiovascular Disease
DX: R53.82 Chronic fatigue, unspecified (principal); D50.9 Iron deficiency anemia, unspecified
CPT/HCPCS: 36415; 80048; 85025

== ENCOUNTER 2020-09-29 10:51 | Outpatient (CLI) | payer MEDICARE, SELFPAY ==
[2020-09-29 11:29] LABS: Basophils Absolute Auto 0.1 K/mm3 (0.0-0.1); Basophils Percent Auto 0.5 % (0.2-1.2); Eosinophils Percent Auto 0.3 % (0-4.4); Hemoglobin 7.6 g/dL (12.0-15.0); Immature Granulocyte Absolute 0.04 K/mm3 (0.00-0.031); Immature Granulocyte Percent A 0.4 % (0-0.5); Immature Platelet Fraction Pct 11.3 % (0.9-11.2); Lymphocytes Absolute Auto 1.55 K/mm3 (0.9-3.2); Lymphocytes Percent Auto 14.6 % (18.3-44.2); Mean Corpuscular HGB Conc 28.1 g/dl (32-36); Mean Corpuscular Hemoglobin 23.5 pg (26-34); Mean Corpuscular Volume 83.3 fl (80-100); Mean Platelet Volume 13.2 fl (7.4-10.4); Monocytes Absolute Auto 0.6 K/mm3 (0.1-0.6); Monocytes Percent Auto 5.6 % (2.6-8.5); Neutrophils Absolute Auto 8.4 K/mm3 (1.3-6.7); Neutrophils Percent Auto 78.6 % (45.5-73.1); Platelet Count Result 165 k/mm3 (150-375); Red Blood Count 3.24 M/mm3 (4.2-5.4); Red Cell Distribution Width 14.3 % (11.5-14.5); White Blood Count 10.6 K/mm3 (4.5-10.0)
[2020-09-29 11:52] LABS: Hypochromasia 2+ (NORMAL); Ovalocytes 1+ (NORMAL)
[2020-09-29 11:53] LABS: Platelet Estimate Adequate (Adequate)
[2020-09-29 12:19] LABS: Iron 25 ug/dL (37-170)
[2020-09-29 12:28] LABS: Percent Iron Saturation 6 % (20-50)
[2020-09-29 12:48] LABS: Folic Acid > 20.0 ng/mL (2.76->20)
== END 2020-09-29 10:52 | disposition home or self-care (01) ==
LOC: ANHLAB 10:53
PROVIDERS: PCP Internal Medicine; Visit Provider Internal Medicine
DX: D64.9 Anemia, unspecified (principal)
CPT/HCPCS: 36415; 82607; 82728; 82746; 83540; 83550; 85025; 85055

== ENCOUNTER 2020-09-29 14:38 | Inpatient (IN) | payer MEDICARE, SELFPAY ==
[2020-09-29] VITALS (7 sets, daily range): BP systolic 111–136; BP diastolic 39–90; PULSE 64–71; RESP 13–18; TEMP 36–36.4; O2SAT 94–100; BMI 31.4
[2020-09-29 15:06] LABS: Basophils Absolute Auto 0.1 K/mm3 (0.0-0.1); Basophils Percent Auto 0.4 % (0.2-1.2); Eosinophils Percent Auto 0.2 % (0-4.4); Hematocrit 27.5 % (37.0-47.0); Hemoglobin 7.9 g/dL (12.0-15.0); Immature Granulocyte Absolute 0.04 K/mm3 (0.00-0.031); Immature Granulocyte Percent A 0.4 % (0-0.5); Lymphocytes Absolute Auto 2.13 K/mm3 (0.9-3.2); Lymphocytes Percent Auto 18.9 % (18.3-44.2); Mean Corpuscular HGB Conc 28.7 g/dl (32-36); Mean Corpuscular Hemoglobin 23.6 pg (26-34); Mean Corpuscular Volume 82.1 fl (80-100); Mean Platelet Volume 12.3 fl (7.4-10.4); Monocytes Absolute Auto 0.7 K/mm3 (0.1-0.6); Monocytes Percent Auto 6.6 % (2.6-8.5); Neutrophils Absolute Auto 8.3 K/mm3 (1.3-6.7); Neutrophils Percent Auto 73.5 % (45.5-73.1); Platelet Count Result 164 k/mm3 (150-375); Red Blood Count 3.35 M/mm3 (4.2-5.4); Red Cell Distribution Width 14.3 % (11.5-14.5); White Blood Count 11.3 K/mm3 (4.5-10.0)
[2020-09-29 15:25] LABS: Hypochromasia 1+ (NORMAL); Platelet Estimate Adequate (Adequate)
--- NOTE | 2020-09-29 16:36 | ED.GENADULT ---
HPI - General Adult General Chief complaint: Recheck/Abnormal Lab/Rx Stated complaint: anemia Time Seen by Provider: 09/29/20 16:31 Source: patient Mode of arrival: ambulatory Limitations: no limitations History of Present Illness HPI narrative: Patient is 75 years old white female referred to the emergency room by her family physician because of general weakness and tiredness since August 2020. Patient denies any fever, chills, nausea, vomiting, abdominal pain, chest pain, shortness of breath or back pain. History of GI bleed, patient currently on Eliquis for A. fib, aspirin. Patient also is on Protonix. Related Data Home Medications Medication Instructions Recorded Confirmed CoQ-10 1 tablet DAILY 04/30/19 09/29/20 Daily Fiber 1 tablet BID 04/30/19 09/29/20 Fish Oil 1 tablet DAILY 04/30/19 09/29/20 Multi Vitamin 1 tablet DAILY 04/30/19 09/29/20 ascorbate calcium (vitamin C) 1 tablet DAILY 04/30/19 09/29/20 atorvastatin 40 mg PO DAILY 04/30/19 09/29/20 clopidogrel 75 mg PO DAILY 04/30/19 09/29/20 sotalol 120 mg PO BID 04/30/19 09/29/20 tamoxifen 20 mg PO DAILY 04/30/19 09/29/20 furosemide 20 mg tablet 20 mg PO QAM 06/18/20 09/29/20 metoprolol succinate 25 mg 12.5 mg PO DAILY tablet 06/18/20 09/29/20 tablet,extended release 24 hr ferrous sulfate 1 tablet PO BID 06/19/20 09/29/20 aspirin 81 mg tablet,delayed 81 mg PO DAILY 09/09/20 09/29/20 release apixaban 5 mg tablet 5 mg PO BID 09/29/20 09/29/20 pantoprazole 40 mg tablet,delayed 40 mg PO QAM 09/29/20 09/29/20 release Allergies Allergy/AdvReac Type Severity Reaction Status Date / Time No Known Allergies Allergy Verified 09/29/20 15:42 Review of Systems Review of Systems: Narrative: CONSTITUTIONAL: Denies fever, chills, or sweats. EYES: Denies visual changes, redness, or discharge. ENT: Denies rhinorrhea, congestion, sore throat, or otalgia. CARDIOVASCULAR: Denies chest pain, palpitations, or edema. RESPIRATORY: Denies cough or dyspnea. GASTROINTESTINAL: Denies abdominal pain, nausea, vomiting, or diarrhea. GENITOURINARY: Denies dysuria or hematuria. SKIN: Denies rash or itching. MUSCULOSKELETAL: Denies back pain, joint pain, or myalgia. NEUROLOGIC: Denies headache, numbness, or weakness. PSYCHIATRIC: Denies anxiety or depression. PMFSH Past Medical History Medical History A-fib Anemia Arthritis CAD (coronary artery disease) Cataracts, bilateral CVA (cerebral vascular accident) DDD (degenerative disc disease) DM (diabetes mellitus) GERD (gastroesophageal reflux disease) History of colonic polyps History of GI bleed History of heart attack History of melena History of rectal polyps Hx of breast cancer Hypercholesteremia Hypertension Obesity Shingles TIA (transient ischemic attack) Surgical History Surgical History History of cholecystectomy History of dilation and curettage History of mastectomy History of removal of cyst from finger Hx of bilateral cataract extraction Hx of cardiac cath with stent placement Hx of tubal ligation S/P ablation of atrial fibrillation Family History Family History Sibling Family history of malignant neoplasm of ovary, Onset Age: 60 Mother Hypertension Heart disease Cerebrovascular accident Other Family history of malignant neoplasm Social History Social History Second hand tobacco smoke exposure: No Alcohol intake: never Substance use: never Substance use type: does not use Gender identity (if verbalized by the patient): Female Spiritual care concerns: No Exam Narrative: Exam Narrative: General appearance: Well-developed, well-nourished Skin: Normal color Head: Normocephalic, nontraumatic Eyes: Clear conjunctiva ENT: Oropharynx normal, ears normal, nose normal Neck: [place]
--- NOTE | 2020-09-29 17:28 | PC.NURSE ---
Called lab talked to Fausto and added on a BMP
[2020-09-29 17:40] LABS: Anion Gap 8 mmol/L (8-16); Blood Urea Nitrogen 15 mg/dL (7-17); Calcium 8.8 mg/dL (8.4-10.2); Carbon Dioxide 28 mmol/L (22-30); Chloride 100 mmol/L (98-107); Estimated Glomerular Filt Rate > 60; Glucose 211 mg/dL (65-105); Potassium 4.2 mmol/L (3.4-5.0); Sodium 136 mmol/L (137-145)
[2020-09-29] MEDS: PANTOPRAZOLE SODIUM IV 40 MG VIAL IV PUSH (17:52)
[2020-09-29 18:46] LABS: Hematocrit 25.8 % (37.0-47.0); Hemoglobin 7.4 g/dL (12.0-15.0)
--- NOTE | 2020-09-29 20:15 | ADMGEN ---
This patient, Jackie Waddell, was admitted to [facility] Surg Room 325-01. Patient/family oriented to hospital policies and general routines including ID bracelet, bed and alarms, visiting hours, pain management, procedures, bathroom and other care routines, personal items, smoking policy, room service/diet, and visiting hours. Information on how to activate the Rapid Response Team has been discussed. Patient/Family are encouraged to report perceived risks to care and to ask questions if they do not understand what they are told or what they should do.
[2020-09-29] MEDS: SODIUM CHLORIDE 0.9% IV 1,000 ML 125 ML IV CONT (20:57)
[2020-09-30] VITALS (17 sets, daily range): BP systolic 97–142; BP diastolic 34–66; PULSE 62–81; RESP 12–20; TEMP 36.5–37.5; O2SAT 96–100; BMI 31.4
[2020-09-30 04:49] LABS: Hematocrit 22.5 % (37.0-47.0); Hemoglobin 6.4 g/dL (12.0-15.0)
--- NOTE | 2020-09-30 05:46 | PM.IMHP ---
H&P: HPI History of Present Illness Date/Time: 09/30/20 05:46 this is a 75-year-old female patient who came to the emergency room with her family today because of generalized weakness and tiredness. She has been this way since last month. The patient stated that she received a watchman on 08/28/2020 and has been feeling tired every since then. The patient has a history of atrial fibrillation but had an ablation and has a Watchman now. Patient stated that she had been on Coumadin in the past and had some bleeding with that. The patient has been placed on Eliquis now. She is currently in sinus rhythm. Since she received her ablation she has been in sinus rhythm. The patient has been on Protonix at home. She was also on an aspirin. The patient was started on IV fluids. 7.4 and 25.8. H&H is now 6.[address] Leon has been consulted. The patient was started on pantoprazole. Patient is to get 2 units of packed red blood cells today. The patient stated that she has been having some dark stools. However she did realize that she is bleeding until the ER doctor did a stool for occult blood in found to be positive. The patient stated that she has had upper and lower GI by Dr. Leon within the last 5 years. She has had some colon polyps in the past. The patient is being admitted to observation status on 09/30/2020. Chief Complaint: GI bleed Review of Systems Review of Systems: All systems reviewed & are unremarkable except as noted in HPI and below Constitutional: Constitutional: Reports as per HPI and Reports no additional constitutional complaints Eyes: Eyes: Reports as per HPI and Reports no additional eye complaints ENT: Reports system reviewed and no additional complaints, except as documented and Reports Normal hearing present Cardiovascular: Cardiovascular: Reports no additional cardiovascular complaints Respiratory: Respiratory: Reports no additional respiratory complaints and Reports no additional respiratory complaints Gastrointestinal: Gastrointestinal: Reports as per HPI and Reports no additional gastrointestinal complaints Musculoskeletal: Musculoskeletal: Reports no additional musculoskeletal complaints Integumentary/Breasts: Skin/Breast: Reports system reviewed and no additional complaints, except as docu and Reports as per HPI Neurologic: Reports system reviewed and no additional complaints, except as documented, Reports as per HPI and Reports Normal hearing present Psychiatric: Psychiatric: Reports no additional psychiatric complaints and Reports as per HPI Endocrine: Endocrine: Reports no additional endocrine complaints Hematologic/Lymphatic: Hematologic/Lymphatic: Reports no additional hematologic/lymphatic complaints Allergic/Immunologic: Allergic/Immunologic: Reports no additional allergic/immunologic complaints [facility] Past Medical History Medical History (Updated 09/30/20 @ 05:57 by Emily Thurston NP) A-fib Anemia Arthritis CAD (coronary artery disease) Cataracts, bilateral CVA (cerebral vascular accident) DDD (degenerative disc disease) DM (diabetes mellitus) GERD (gastroesophageal reflux disease) History of colonic polyps History of GI bleed History of heart attack History of melena History of rectal polyps Hx of breast cancer Chemotherapy and radiation and mastectomy Hypercholesteremia Hypertension Obesity Shingles TIA (transient ischemic attack) Surgical History Surgical History (Updated 09/30/20 @ 05:57 by Emily Thurston NP) History of cholecystectomy History of dilation and curettage History of mastectomy Left breast History of removal of cyst from finger Hx of bilateral cataract extraction Hx of cardiac cath with stent placement Hx of tubal ligation S/P ablation of atrial fibrillation Family History Family History (Updated 09/30/20 @ 05:58 by Emily Thurston NP) Sibling Family history of malignant neoplasm of ovary, Onset Age: 60 Mother Hypertension H
--- NOTE | 2020-09-30 08:09 | WPDGICN ---
Assessment and Plan Assessment and plan (1) GI bleed: Qualifiers: GI bleed type/associated pathology: unspecified gastrointestinal hemorrhage type Qualified Code(s): K92.2 - Gastrointestinal hemorrhage, unspecified Code(s): K92.2 - Gastrointestinal hemorrhage, unspecified Status: Acute Assessment and Plan: Patient found to have occult blood in stool last evening in the emergency room. Decline in hemoglobin suggest GI blood loss. Dark stools suggests this may be upper GI in nature. Patient does have a known history both colon and gastric polyps. Plan is to transfuse to stable hemoglobin proceed with colonoscopy and EGD tomorrow after preparation today. (2) Anemia: Qualifiers: Anemia type: unspecified type Qualified Code(s): D64.9 - Anemia, unspecified Code(s): D64.9 - Anemia, unspecified Status: Acute Assessment and Plan: Patient has significant anemia with a hemoglobin 6.4 hematocrit 22, MCV 82. Patient's baseline hemoglobin is closer to 11. Plan is for transfusion. Monitor hemoglobin , GI endoscopy anticipated. Eliquis will be held until we are certain safe to return. (3) A-fib: Code(s): I48.91 - Unspecified atrial fibrillation Status: Acute (4) History of colon polyps: Code(s): Z86.010 - Personal history of colonic polyps Status: Acute Assessment and Plan: Patient has prior history of adenomatous colon polyps this will be reassessed by colonoscopy. (5) Gastric polyps: Code(s): K31.7 - Polyp of stomach and duodenum Status: Acute Assessment and Plan: Gastric polyp previously resected were felt to be hyperplastic but were quite large. Because of GI bleeding dark stools follow up EGD anticipated tomorrow. GI Consult Note Consult date/time: 09/30/20 08:09 HPI: Jackie Waddell is a 75 year old female Seen in evaluation at the request of the emergency room. Patient reports a longstanding history of atrial fibrillation. Previously on Coumadin anticoagulation. On August 28, 2020 she had a watchman device placed. Apparently had ablation of her atrial fibrillation she has been maintained on Eliquis anticoagulation. She recently saw Dr. Escobar. since her watch min device was placed she has begun to feel weak and tired. She presented to primary care service of blood count was obtained found to be significantly anemic for this reason she was sent to the emergency room at admitted for further evaluation and transfusion. Patient states her stools have been somewhat dark. She has not noticed any obvious bleeding. However in the emergency room stool was confirmed to be Hemoccult positive. Patient denies any abdominal pain. Bowel habits are reported to be normal aside from darkness. Patient's past history is significant for colon polyps. In April of 2020 patient underwent both colonoscopy an EGD. Hyperplastic polyps of the stomach were identified and several adenomatous colon polyps also identified. Patient's family history is noncontributory with no known history of colon or rectal disease. Her hemoglobin was noted to be 6.4 last evening and patient is currently is receiving transfusion. Review of Systems Review of Systems: All systems reviewed & are unremarkable except as noted in HPI and below PMFSH Past Medical History Medical History (Updated 09/30/20 @ 05:57 by Emily Thursotn NP) A-fib Anemia Arthritis CAD (coronary artery disease) Cataracts, bilateral CVA (cerebral vascular accident) DDD (degenerative disc disease) DM (diabetes mellitus) GERD (gastroesophageal reflux disease) History of colonic polyps History of GI bleed History of heart attack History of melena History of rectal polyps Hx of breast cancer Chemotherapy and radiation and mastectomy Hypercholesteremia Hypertension Obesity Shingles TIA (transient ischemic attack) Surgical History Surgical History (Updated 09/30/20
[2020-09-30 08:21] LABS: Glucose Point of Care 152 (65-105)
[2020-09-30 09:18] LABS: Alanine Aminotransferase 13 U/L (4-35); Albumin Level 3.1 g/dL (3.5-5.1); Alkaline Phosphatase 52 U/L (38-126); Anion Gap 3 mmol/L (8-16); Aspartate Amino Transferase 29 U/L (14-36); Bilirubin,Total 0.7 mg/dL (0.2-1.3); Blood Urea Nitrogen 12 mg/dL (7-17); Carbon Dioxide 28 mmol/L (22-30); Chloride 105 mmol/L (98-107); Estimated CRCL calculation 76 ml/min; Estimated Glomerular Filt Rate > 60; Glucose 139 mg/dL (65-105); Magnesium 1.7 mg/dL (1.6-2.3); Potassium 3.8 mmol/L (3.4-5.0); Sodium 136 mmol/L (137-145)
[2020-09-30] MEDS: TUBING, BLOOD PLUM PUMP TUBING 1 EACH XX (11:10)
[2020-09-30 11:30] LABS: Glucose Point of Care 267 (65-105)
[2020-09-30] MEDS: CANAGLIFLOZIN 100 MG TABLET PO (11:32)
[2020-09-30] MEDS: OMEGA 3 POLYUNSAT FATTY ACIDS 1 GM CAP PO (11:32)
[2020-09-30] MEDS: MULTIVITAMINS THERAPEUTIC TAB (*BKC) 1 TABLET PO (11:32)
[2020-09-30] MEDS: PANTOPRAZOLE SODIUM IV 40 MG VIAL IV PUSH (11:32)
[2020-09-30] MEDS: PEG (High)/E-LYTE SOLN 4,000 ML BTL 4000 ML PO (11:32)
[2020-09-30] MEDS: INSULIN ASPART (*BKC) 100 UNITS/ML SUB-Q (11:37)
--- NOTE | 2020-09-30 12:58 | PM.IMPN ---
Progress Note: A&P Assessment and Plan (1) GI bleed: Qualifiers: GI bleed type/associated pathology: unspecified gastrointestinal hemorrhage type Qualified Code(s): K92.2 - Gastrointestinal hemorrhage, unspecified Code(s): K92.2 - Gastrointestinal hemorrhage, unspecified Status: Acute Assessment and Plan: H&H every 6 hours. Patient is to be transfused with 2 units of packed red blood cells. Her Eliquis and aspirin are on hold at this time. GI consult has been placed. The patient has had a history of having a GI bleed in the past and has had have blood. Patient was on Coumadin at 1 time. The patient currently has a watchman. Patient's stool for occult blood was positive. 09/30/20 12:58 75-year-old female with history of atrial fibrillation status post abalation has watchman placed and patient anticoagulated with Eliquis, patient had been being tired and fatigued, patient denies any abdominal pain nausea or vomiting hematoma emesis hematochezia or bright red blood per rectum, was seen by her primary and suspect anemia patient was sent to emergency depart, her primary stopped Eliquis, in emergency depart patient was positive occult blood as well as a hemoglobin was 6.6, patient will receive 2 units of pack RBC, patient seen by GI patient has history gastric and colon polyps and her last EGD and colonoscopy was 5 years of ago, GI has scheduled EGD and colonoscopy tomorrow and further recommendation to follow, will continue to monitor H and H, (2) DM (diabetes mellitus): Code(s): E11.9 - Type 2 diabetes mellitus without complications Status: Acute Assessment and Plan: Accu-Cheks AC and HS. Sliding scale insulin. Holding metformin (3) Hypertension: Code(s): I10 - Essential (primary) hypertension Status: Acute Assessment and Plan: Continue with sotalol. Metoprolol and losartan and Lasix (4) A-fib: Code(s): I48.91 - Unspecified atrial fibrillation Status: Acute Assessment and Plan: Patient is on sotalol and metoprolol. I am holding her Eliquis and aspirin. (5) Dyslipidemia: Code(s): E78.5 - Hyperlipidemia, unspecified Status: Acute Assessment and Plan: She is on Co Q10 and atorvastatin Subjective Date/time seen: 09/30/20 12:58 75-year-old female with history of atrial fibrillation status post abalation has watchman placed and patient anticoagulated with Eliquis, patient had been being tired and fatigued, patient denies any abdominal pain nausea or vomiting hematoma emesis hematochezia or bright red blood per rectum, was seen by her primary and suspect anemia patient was sent to emergency depart, her primary stopped Eliquis, in emergency depart patient was positive occult blood as well as a hemoglobin was 6.6, patient will receive 2 units of pack RBC, patient seen by GI patient has history gastric and colon polyps and her last EGD and colonoscopy was 5 years of ago, GI has scheduled EGD and colonoscopy tomorrow and further recommendation to follow, will continue to monitor H and H, Review of Systems Review of Systems: All systems reviewed & are unremarkable except as noted in HPI and below Exam Narrative: Exam Narrative: Moderately obese Patient is comfortable, NAD HEENT: eyes are clear and none icteric LUNGS:CTA HEART: RR S1S2 ABD: BS+, Soft and nontender Lower extremities: no edema SKIN: nonjaundiced Neuro: grossly intact. Objective Data Vital Signs Vital Signs: Vital Signs - 24 hr 09/29/20 14:51 09/29/20 15:43 09/29/20 16:01 Temperature 97.6 F Pulse Rate 71 69 69 Respiratory Rate 17 18 18 Blood Pressure 134/90 126/61 122/54 L Pulse Oximetry 100 100 94 09/29/20 16:31 09/29/20 17:31 09/29/20 18:00 Temperature Pulse Rate 68 66 66 Respiratory Rate 16 18 13 Blood Pressure 122/55 L 111/39 L Pulse Oximetry 99 97 99 09/29/20 19:45 09/30/20 01:20 09/30/20 05:50 Temperature 96.8 F L 98.1 F 9
[2020-09-30 15:21] LABS: Basophils Percent Auto 0.4 % (0.2-1.2); Eosinophils Percent Auto 0.4 % (0-4.4); Hematocrit 32.3 % (37.0-47.0); Hemoglobin 9.8 g/dL (12.0-15.0); Immature Granulocyte Absolute 0.07 K/mm3 (0.00-0.031); Immature Granulocyte Percent A 0.8 % (0-0.5); Immature Platelet Fraction Pct 10.1 % (0.9-11.2); Lymphocytes Absolute Auto 1.87 K/mm3 (0.9-3.2); Lymphocytes Percent Auto 20.4 % (18.3-44.2); Mean Corpuscular HGB Conc 30.3 g/dl (32-36); Mean Corpuscular Hemoglobin 25.6 pg (26-34); Mean Corpuscular Volume 84.3 fl (80-100); Mean Platelet Volume 12.9 fl (7.4-10.4); Monocytes Absolute Auto 0.7 K/mm3 (0.1-0.6); Monocytes Percent Auto 8.1 % (2.6-8.5); Neutrophils Absolute Auto 6.4 K/mm3 (1.3-6.7); Neutrophils Percent Auto 69.9 % (45.5-73.1); Platelet Count Result 127 k/mm3 (150-375); Red Blood Count 3.83 M/mm3 (4.2-5.4); Red Cell Distribution Width 15.9 % (11.5-14.5); White Blood Count 9.2 K/mm3 (4.5-10.0)
[2020-09-30] MEDS: SODIUM CHLORIDE 0.9% IV 1,000 ML 125 ML IV CONT (17:12)
[2020-09-30] MEDS: SOTALOL HCL 40 MG TABLET 120 MG PO (17:12)
[2020-09-30 17:24] LABS: Glucose Point of Care 176 (65-105)
[2020-09-30] MEDS: ATORVASTATIN 40 MG TABLET PO (19:52)
[2020-09-30] MEDS: TAMOXIFEN CITRATE (*CHEMO) 10 MG TABLET 20 MG PO (19:52)
[2020-09-30 21:32] LABS: Glucose Point of Care 168 (65-105)
--- NOTE | 2020-09-30 22:38 | PC.NURSE ---
patient very pale and complaining of nausea from bowel prep. States stool is yellow in color but it is liquid. Will administer tylenol to help her headache and will try and push more of the elizabeth as she is able.
--- NOTE | 2020-09-30 22:41 | PC.NURSE ---
visualized patients stool and it is clear yellow liquid. She is refusing elizabeth at this time but I will continue to check back.
[2020-09-30 23:23] LABS: Hematocrit 29.2 % (37.0-47.0)
--- NOTE | 2020-09-30 23:48 | PC.NURSE ---
Emily Thurston recommended STAT H&H to see if that is why patient is not tolerating bowel prep/ her pale complexion. The results did not reflect much out of her ordinary, she is not in pain from the headache anymore but is still complaining of nausea and refusing the prep. -CLIVE RN
[2020-10-01] VITALS (19 sets, daily range): BP systolic 92–160; BP diastolic 47–87; PULSE 48–130; RESP 14–20; TEMP 36.1–37.4; O2SAT 96–99
[2020-10-01] MEDS: SODIUM CHLORIDE 0.9% IV 1,000 ML 125 ML IV CONT ×2 (04:34→21:19)
[2020-10-01 06:13] LABS: Hematocrit 28.3 % (37.0-47.0); Hemoglobin 8.8 g/dL (12.0-15.0); Mean Corpuscular HGB Conc 31.1 g/dl (32-36); Mean Corpuscular Hemoglobin 25.8 pg (26-34); Mean Platelet Volume 12.6 fl (7.4-10.4); Platelet Count Result 106 k/mm3 (150-375); Red Blood Count 3.41 M/mm3 (4.2-5.4); Red Cell Distribution Width 15.7 % (11.5-14.5); White Blood Count 7.2 K/mm3 (4.5-10.0)
[2020-10-01 06:29] LABS: Anion Gap 1 mmol/L (8-16); Blood Urea Nitrogen 5 mg/dL (7-17); Calcium 7.9 mg/dL (8.4-10.2); Carbon Dioxide 31 mmol/L (22-30); Chloride 106 mmol/L (98-107); Estimated CRCL calculation 76 ml/min; Estimated Glomerular Filt Rate > 60; Glucose 116 mg/dL (65-105); Potassium 3.2 mmol/L (3.4-5.0); Sodium 138 mmol/L (137-145)
--- NOTE | 2020-10-01 06:40 | PC.NURSE ---
patient called to state she is feeling like she is going into A. Fib. I put her on tele and she is in A. Fib with a HR of anywhere from 104-122. I called Emily to inform her and she stated she wants the patient on tele and give her metropolol early. -CLIVE RN
[2020-10-01] MEDS: METOPROLOL SUCCINATE EXT REL 12.5 MG TABCR PO (06:44)
[2020-10-01] MEDS: SOTALOL HCL 40 MG TABLET 120 MG PO ×2 (07:58→17:23)
[2020-10-01 07:59] LABS: Glucose Point of Care 122 (65-105)
--- NOTE | 2020-10-01 08:55 | WPDANESEPPF ---
Anes - Initial Pre Proc Eval Procedure: Operation Date: 10/01/20 11:30 Proposed Procedures p Esophagogastroduodenoscopy & Colonoscopy - Jr Leon MD Date/Time: 10/01/20 08:55 Surgeon: Laurent Rogers MD Pre Op Diagnosis: GI bleed, anemia Patient Data Age: 75 Gender: F Height: 1.55 m Weight: 75.3 kg Last Vital Signs Temp 36.1 C L 10/01/20 06:00 Pulse 124 H 10/01/20 07:58 Resp 20 10/01/20 06:00 BP 127/47 L 10/01/20 06:00 Pulse Ox 98 10/01/20 06:00 Allergies Allergy/AdvReac Type Severity Reaction Status Date / Time No Known Allergies Allergy Verified 09/29/20 15:42 Home Medications Medication Instructions Recorded Confirmed Type CoQ-10 1 tablet PO DAILY 04/30/19 09/29/20 History Daily Fiber 1 tablet PO BID 04/30/19 09/29/20 History Multi Vitamin 1 tablet PO DAILY 04/30/19 09/29/20 History atorvastatin 40 mg PO HS 04/30/19 09/29/20 History sotalol 120 mg PO BID 04/30/19 09/29/20 History tamoxifen 20 mg PO HS 04/30/19 09/29/20 History furosemide 20 mg tablet 20 mg PO QAM 06/18/20 09/29/20 History metoprolol succinate 25 mg 12.5 mg PO DAILY tablet 06/18/20 09/29/20 History tablet,extended release 24 hr losartan 25 mg tablet 25 mg PO DAILY #90 tablet 08/05/20 09/29/20 Rx dapagliflozin 5 mg tablet 5 mg PO DAILY #30 tablet 08/27/20 09/29/20 Rx aspirin 81 mg tablet,delayed 81 mg PO DAILY 09/09/20 09/29/20 History release apixaban 5 mg tablet 5 mg PO BID 09/29/20 09/29/20 History ascorbic acid (vitamin C) 250 mg PO DAILY 09/29/20 09/29/20 History ferrous sulfate [Iron (ferrous 325 mg PO BID 09/29/20 09/29/20 History sulfate)] metformin 500 mg PO Q12H 09/29/20 09/29/20 History omega-3 fatty acids-vitamin E 1,000 cap PO DAILY 09/29/20 09/29/20 History [Fish Oil] pantoprazole 40 mg tablet,delayed 40 mg PO BID 09/29/20 09/29/20 History release triamcinolone acetonide 1 applic TOPICAL HS PRN 09/29/20 09/29/20 History Laboratory Tests 09/29/20 09/30/20 09/30/20 17:49 08:52 08:52 WBC RBC Hgb Hct MCV MCH MCHC RDW Plt Count MPV Immature Gran % (Auto) Neut % (Auto) Lymph % (Auto) Park % (Auto) Eos % (Auto) Baso % (Auto) Lymph # (Auto) Park # (Auto) Eos # (Auto) Baso # (Auto) Abs Immat Gran (auto) Absolute Neuts (auto) Absolute Nucleated RBC Nucleated RBC % % Immature Plt Fraction Sodium 136 mmol/L L mmol/L (137-145) Potassium 3.8 mmol/L mmol/L (3.4-5.0) Chloride 105 mmol/L mmol/L (98-107) Carbon Dioxide 28 mmol/L mmol/L (22-30) Anion Gap 3 mmol/L L mmol/L (8-16) BUN 12 mg/dL mg/dL (7-17) Creatinine 0.50 mg/dL L mg/dL (0.7-1.0) Estim Creat Clear Calc 76 ml/min ml/min Estimated GFR > 60 (59 - ) Glucose 139 mg/dL H mg/dL (65-105) POC Capillary Glucose Calcium 8.0 mg/dL L mg/dL (8.4-10.2) Magnesium 1.7 mg/dL mg/dL (1.6-2.3) Ferritin 10.40 ng/mL L ng/mL (11.1-264) Total Bilirubin 0.7 mg/dL mg/dL (0.2-1.3) AST 29 U/L U/L (14-36) ALT 13 U/L U/L (4-35) Alkaline Phosphatase 52 U/L U/L (38-126) Total Protein 6.0 g/dL L g/dL (6.3-8.2) Albumin 3.1 g/dL L g/dL (3.5-5.1) Blood Type A Positive Antibody Screen Negative Crossmatch See Detail 09/30/20 09/30/20 09/30/20 11:28 15:04 17:10 WBC 9.2 K/mm3 K/mm3 (4.5-10.0) RBC 3.83 M/mm3 L M/mm3 (4.2-5.4) Hgb 9.8 g/dL L D g/dL (12.0-15.0) Hct 32.3 % L % (37.0-47.0) MCV 84.3 fl fl (80-100) MCH 25.6 pg
--- NOTE | 2020-10-01 09:02 | SUR.PREOP ---
0845 Patient transferred to GI lab per w/c, patient sitting up in chair per patient's request. Patient left her earrings and watch on her bedside table prior to leaving her room. Dr. Smith notified of patient's HR and change in her heart rhythm and no orders received.
[2020-10-01] MEDS: LACTATED RINGERS 1,000 ML 150 ML IV CONT (09:05)
--- NOTE | 2020-10-01 09:05 | SUR.PREOP ---
0855 Potassium 40 meq/ 500ml piggyback infusion continued on pump at 125 ml/hr.
[2020-10-01] MEDS: BENZOCAINE (*SP) 60 ML SPRAY CAN (HURRICAINE) 1 SPRAY MUCOUS MEM (10:18)
--- NOTE | 2020-10-01 10:52 | WPDCDIQUERY2 ---
CDI Query Clarification Request -GI bleed has been documented -09/29 H&H 7.6/27.0 09/30 H&H 6.4/22.5 10/01 H&H8.8/.3 -2 Units of blood transfused 09/30 -Anemia and Patient has significant anemia with a hemoglobin 6.4 hematocrit 22, MCV 82. Patient's baseline hemoglobin is closer to [address] Leon If you concur with diagnosis of anemia, please document on problem list. Also,if you concur, please specify type/cause and acuity of anemia. <Sharona Álvarez RN - Last Filed: 10/01/20 10:57> Clarified Diagnosis (1) Anemia: Qualifiers: Anemia type: unspecified type Qualified Code(s): D64.9 - Anemia, unspecified <Sharona Álvarez RN - Last Filed: 10/01/20 10:57> Code(s): D64.9 - Anemia, unspecified <Sharona Álvarez RN - Last Filed: 10/01/20 10:57> Status: Acute <Sharona Álvarez RN - Last Filed: 10/01/20 10:57> Assessment and Plan: Anemia most likely secondary upper GI bleed plan is above <Sherita Garcia MD - Last Filed: 10/02/20 12:34>
--- NOTE | 2020-10-01 11:55 | PM.IMPN ---
Progress Note: A&P Assessment and Plan (1) GI bleed: Qualifiers: GI bleed type/associated pathology: unspecified gastrointestinal hemorrhage type Qualified Code(s): K92.2 - Gastrointestinal hemorrhage, unspecified Code(s): K92.2 - Gastrointestinal hemorrhage, unspecified Status: Acute Assessment and Plan: H&H every 6 hours. Patient is to be transfused with 2 units of packed red blood cells. Her Eliquis and aspirin are on hold at this time. GI consult has been placed. The patient has had a history of having a GI bleed in the past and has had have blood. Patient was on Coumadin at 1 time. The patient currently has a watchman. Patient's stool for occult blood was positive. 09/30 75-year-old female with history of atrial fibrillation status post abalation has watchman placed and patient anticoagulated with Eliquis, patient had been being tired and fatigued, patient denies any abdominal pain nausea or vomiting hematoma emesis hematochezia or bright red blood per rectum, was seen by her primary and suspect anemia patient was sent to emergency depart, her primary stopped Eliquis, in emergency depart patient was positive occult blood as well as a hemoglobin was 6.6, patient will receive 2 units of pack RBC, patient seen by GI patient has history gastric and colon polyps and her last EGD and colonoscopy was 5 years of ago, GI has scheduled EGD and colonoscopy tomorrow and further recommendation to follow, will continue to monitor H and H, 10/01 Patient stats feeling better denies any a abdominal pain nausea or vomiting or bleeding, patient received 2 units of pack RBC her H&H is stable, is scheduled for EGD and colonoscopy today, patient does complaint palpitation with history of atrial fibrillation and she missed couple of dose of her sotalol we have resumed and will monitor will follow-up on EGD and colonoscopy and further recommendation to follow (2) DM (diabetes mellitus): Code(s): E11.9 - Type 2 diabetes mellitus without complications Status: Acute Assessment and Plan: Accu-Cheks AC and HS. Sliding scale insulin. Holding metformin (3) Hypertension: Code(s): I10 - Essential (primary) hypertension Status: Acute Assessment and Plan: Continue with sotalol. Metoprolol and losartan and Lasix (4) A-fib: Code(s): I48.91 - Unspecified atrial fibrillation Status: Acute Assessment and Plan: Patient is on sotalol and metoprolol. I am holding her Eliquis and aspirin. (5) Dyslipidemia: Code(s): E78.5 - Hyperlipidemia, unspecified Status: Acute Assessment and Plan: She is on Co Q10 and atorvastatin Subjective Date/time seen: 10/01/20 11:55 75-year-old female with history of atrial fibrillation status post abalation has watchman placed and patient anticoagulated with Eliquis, patient had been being tired and fatigued, patient denies any abdominal pain nausea or vomiting hematoma emesis hematochezia or bright red blood per rectum, was seen by her primary and suspect anemia patient was sent to emergency depart, her primary stopped Eliquis, in emergency depart patient was positive occult blood as well as a hemoglobin was 6.6, patient will receive 2 units of pack RBC, patient seen by GI patient has history gastric and colon polyps and her last EGD and colonoscopy was 5 years of ago, GI has scheduled EGD and colonoscopy tomorrow and further recommendation to follow, will continue to monitor H and H, Patient stats feeling better denies any a abdominal pain nausea or vomiting or bleeding, patient received 2 units of pack RBC her H&H is stable, is scheduled for EGD and colonoscopy today, patient does complaint palpitation with history of atrial fibrillation and she missed couple of dose of her sotalol we have resumed and will monitor will follow-up on EGD and colonoscopy and further recommendation to follow Review of Systems Review of Systems: All systems
[2020-10-01 11:56] LABS: Glucose Point of Care 129 (65-105)
[2020-10-01] MEDS: LOSARTAN POTASSIUM 25 MG TABLET PO (12:17)
[2020-10-01] MEDS: CANAGLIFLOZIN 100 MG TABLET PO (12:17)
[2020-10-01] MEDS: OMEGA 3 POLYUNSAT FATTY ACIDS 1 GM CAP PO (12:17)
[2020-10-01] MEDS: FUROSEMIDE 20 MG TABLET PO (12:17)
[2020-10-01] MEDS: MULTIVITAMINS THERAPEUTIC TAB (*BKC) 1 TABLET PO (12:17)
[2020-10-01] MEDS: PANTOPRAZOLE SODIUM IV 40 MG VIAL IV PUSH (12:24)
[2020-10-01 16:40] LABS: Glucose Point of Care 193 (65-105)
[2020-10-01] MEDS: FERROUS SULFATE 324 MG TABLET PO (18:10)
--- NOTE | 2020-10-01 21:06 | PC.NURSE ---
Patient complained of feeling funny her HR has been between 48-52 and she is normally high. She stated she has had episodes of this before. Put a call out to [facility] and she asked that we do orthostatics on her. Her other vitals were unremarkable besides a temp of 99.0F and her blood glucose is high at 239. Awaiting orders and will act accordingly. -CLIVE RN
[2020-10-01] MEDS: INSULIN ASPART (*BKC) 100 UNITS/ML SUB-Q (21:15)
[2020-10-01 21:17] LABS: Glucose Point of Care 239 (65-105)
[2020-10-01] MEDS: TAMOXIFEN CITRATE (*CHEMO) 10 MG TABLET 20 MG PO (21:18)
[2020-10-01] MEDS: ATORVASTATIN 40 MG TABLET PO (21:18)
[2020-10-01 21:42] LABS: Hematocrit 31.2 % (37.0-47.0); Hemoglobin 9.7 g/dL (12.0-15.0); Mean Corpuscular HGB Conc 31.1 g/dl (32-36); Mean Corpuscular Hemoglobin 25.7 pg (26-34); Mean Corpuscular Volume 82.5 fl (80-100); Platelet Count Result 166 k/mm3 (150-375); Red Blood Count 3.78 M/mm3 (4.2-5.4); White Blood Count 12.1 K/mm3 (4.5-10.0)
[2020-10-01 21:52] LABS: Anion Gap 6 mmol/L (8-16); Blood Urea Nitrogen 7 mg/dL (7-17); Calcium 8.3 mg/dL (8.4-10.2); Carbon Dioxide 26 mmol/L (22-30); Chloride 104 mmol/L (98-107); Estimated CRCL calculation 50 ml/min; Estimated Glomerular Filt Rate > 60; Glucose 228 mg/dL (65-105); Magnesium 1.6 mg/dL (1.6-2.3); Potassium 3.9 mmol/L (3.4-5.0); Sodium 136 mmol/L (137-145)
[2020-10-02] VITALS: PULSE 64
[2020-10-02 04:00] VITALS: PULSE 62
[2020-10-02 06:00] VITALS: BP 122/48; PULSE 60; RESP 18; TEMP 37; O2SAT 97
[2020-10-02 06:18] LABS: Hematocrit 30.2 % (37.0-47.0); Mean Corpuscular HGB Conc 29.8 g/dl (32-36); Mean Corpuscular Hemoglobin 25.6 pg (26-34); Mean Platelet Volume 12.8 fl (7.4-10.4); Platelet Count Result 124 k/mm3 (150-375); Red Blood Count 3.51 M/mm3 (4.2-5.4); Red Cell Distribution Width 16.6 % (11.5-14.5); White Blood Count 10.8 K/mm3 (4.5-10.0)
[2020-10-02 06:29] LABS: Anion Gap 3 mmol/L (8-16); Blood Urea Nitrogen 7 mg/dL (7-17); Carbon Dioxide 27 mmol/L (22-30); Chloride 107 mmol/L (98-107); Estimated CRCL calculation 76 ml/min; Estimated Glomerular Filt Rate > 60; Glucose 125 mg/dL (65-105); Potassium 3.5 mmol/L (3.4-5.0); Sodium 137 mmol/L (137-145)
[2020-10-02] MEDS: SODIUM CHLORIDE 0.9% IV 1,000 ML 125 ML IV CONT (07:15)
[2020-10-02 08:10] LABS: Glucose Point of Care 133 (65-105)
--- NOTE | 2020-10-02 08:52 | WPDANESPN ---
Anes - Prog Note Post-Op Date/Time: 10/02/20 08:52 Cardiovascular status: normal Respiratory status: normal Airway patency: baseline Mental status: baseline Post-Op hydration status: normal Vital Signs: Last Vital Signs Temp 37.0 C 10/02/20 06:00 Pulse 60 10/02/20 06:00 Resp 18 10/02/20 06:00 BP 122/48 L 10/02/20 06:00 Pulse Ox 97 10/02/20 06:00 Pain Score (VAS): 0 I/O: Intake & Output 10/01/20 10/02/20 10/02/20 23:59 07:59 15:59 Intake Total 1840 300 Balance 1840 300 Laboratory Tests 10/02/20 06:08 10/02/20 06:08 10/01/20 10/01/20 10/01/20 11:52 16:36 20:14 WBC RBC Hgb Hct MCV MCH MCHC RDW Plt Count MPV Sodium Potassium Chloride Carbon Dioxide Anion Gap BUN Creatinine Estim Creat Clear Calc Estimated GFR Glucose POC Capillary Glucose 129 H 193 H 239 H Calcium Magnesium 10/01/20 10/01/20 10/02/20 21:32 21:32 06:08 WBC 12.1 H 10.8 H RBC 3.78 L 3.51 L Hgb 9.7 L 9.0 L Hct 31.2 L 30.2 L MCV 82.5 86.0 MCH 25.7 L 25.6 L MCHC 31.1 L 29.8 L RDW 16.0 H 16.6 H Plt Count 166 D 124 L MPV 13.0 H 12.8 H Sodium 136 L Potassium 3.9 Chloride 104 Carbon Dioxide 26 Anion Gap 6 L BUN 7 Creatinine 0.80 Estim Creat Clear Calc 50 Estimated GFR > 60 Glucose 228 H POC Capillary Glucose Calcium 8.3 L Magnesium 1.6 10/02/20 10/02/20 06:08 07:47 WBC RBC Hgb Hct MCV MCH MCHC RDW Plt Count MPV Sodium 137 Potassium 3.5 Chloride 107 Carbon Dioxide 27 Anion Gap 3 L BUN 7 Creatinine 0.50 L Estim Creat Clear Calc 76 Estimated GFR > 60 Glucose 125 H POC Capillary Glucose 133 H Calcium 8.0 L Magnesium Post-procedural complaints: none Patient Feedback: Patient satisfied with anesthetic care.
--- NOTE | 2020-10-02 08:55 | WPDGIPROGNO ---
Progress Note: A&P Assessment and Plan (1) GI bleed: Qualifiers: GI bleed type/associated pathology: unspecified gastrointestinal hemorrhage type Qualified Code(s): K92.2 - Gastrointestinal hemorrhage, unspecified Code(s): K92.2 - Gastrointestinal hemorrhage, unspecified Status: Acute Assessment and Plan: GI bleeding resolved. No additional bleeding identified at this time. Hemoglobin stable. Recommend monitoring hemoglobin after discharge transfuse as necessary. (2) Anemia: Qualifiers: Anemia type: unspecified type Qualified Code(s): D64.9 - Anemia, unspecified Code(s): D64.9 - Anemia, unspecified Status: Acute Assessment and Plan: Patient appears to have had a blood loss anemia. Hemoglobin currently stable. Hemoglobin is improved on holding Eliquis anticoagulation. Recommend monitoring hemoglobin after discharge transfuse as necessary per (3) Gastric polyps: Code(s): K31.7 - Polyp of stomach and duodenum Status: Acute Assessment and Plan: patient with a history gastric polyps. Additional large gastric polyps identified by endoscopy yesterday. Histology pending. However previous histology suggested these were inflammatory polyps. Plan to continue proton pump inhibitor therapy. We will add Carafate. These appear to have been source recent GI blood loss. Would encourage holding Eliquis another anticoagulation for 1-2 months. Longer if possible. Follow-up EGD for additional polypectomies suggested in 1 year because these polyps appear to have grown since last endoscopy. She has multiple additional polyps most of them are small period and follow-up EGD is encouraged in 1 year. (4) History of colon polyps: Code(s): Z86.010 - Personal history of colonic polyps Status: Acute Assessment and Plan: Patient has history of adenomatous colon polyps. Several small polyps were removed by colonoscopy yesterday. Follow-up colonoscopy in 4-5 years is encouraged. (5) A-fib: Code(s): I48.91 - Unspecified atrial fibrillation Status: Acute Assessment and Plan: Patient has a history of atrial fibrillation. History of ablation, and watchman device was placed. She has recently been on anticoagulation with Eliquis. Hopefully this can be held. She likely will continue bleed from her gastric polyps of anticoagulation continues. I would definitely hold it for 1 month. Low healing after a recent polyp the Subjective Date/time seen: 10/02/20 08:55 patient feels good today. Slept well last night. No obvious bleeding described. She currently is tolerating diet with no discomfort. Exam Narrative: Exam Narrative: Physical exam reveals patient to be alert comfortable at rest she is anicteric. Lungs are clear. Heart with no obvious murmur. Abdomen is benign bowel sounds present soft nontender. Objective Data Vital Signs Vital Signs: Vital Signs - 24 hr 10/01/20 09:01 10/01/20 11:07 10/01/20 11:17 Temperature 97 F L Pulse Rate 117 H 94 96 Respiratory Rate 18 16 14 Blood Pressure 144/87 H 136/60 160/61 H Pulse Oximetry 97 97 97 10/01/20 11:27 10/01/20 11:47 10/01/20 12:00 Temperature 97.7 F Pulse Rate 112 H 106 H 101 H Respiratory Rate 18 18 Blood Pressure 131/69 145/74 H Pulse Oximetry 96 98 10/01/20 14:00 10/01/20 16:00 10/01/20 17:23 Temperature 98.2 F Pulse Rate 108 H 111 H 117 H Respiratory Rate 18 Blood Pressure 107/59 L Pulse Oximetry 97 10/01/20 20:00 10/01/20 20:43 10/01/20 21:17 Temperature 99.3 F Pulse Rate 48 L Respiratory Rate Blood Pressure Pulse Oximetry 98 10/01/20 21:18 10/01/20 21:20 10/01/20 21:21 Temperature 99.3 F Pulse Rate 53 L 51 L 50 L Respiratory Rate 18 18 18 Blood Pressure 92/53 L 132/58 L 134/48 L Pulse Oximetry 98 99 99 10/02/20 00:00 10/02/20 04:00 10/02/20 06:00 Temperature 98.6 F Pulse Rate 64 62 60 Respi
[2020-10-02] MEDS: MULTIVITAMINS THERAPEUTIC TAB (*BKC) 1 TABLET PO (09:13)
[2020-10-02] MEDS: OMEGA 3 POLYUNSAT FATTY ACIDS 1 GM CAP PO (09:13)
[2020-10-02] MEDS: FUROSEMIDE 20 MG TABLET PO (09:13)
[2020-10-02] MEDS: FERROUS SULFATE 324 MG TABLET PO ×2 (09:13→16:35)
[2020-10-02] MEDS: CANAGLIFLOZIN 100 MG TABLET PO (09:14)
[2020-10-02 09:18] VITALS: PULSE 68
[2020-10-02] MEDS: LOSARTAN POTASSIUM 25 MG TABLET PO (09:18)
[2020-10-02] MEDS: METOPROLOL SUCCINATE EXT REL 12.5 MG TABCR PO (09:18)
[2020-10-02] MEDS: SOTALOL HCL 40 MG TABLET 120 MG PO ×2 (09:18→16:35)
--- NOTE | 2020-10-02 10:08 | PC.NURSE ---
Pt IV began leaking. New IV site placement attempted, but pt veins are extremely deep. Call made to vascular electrical accessories assembler. Called MD to make aware of loss of access. okay with not giving iron sucrose if pt discharging today. Okay to stop IV fluids. Discharge likely after cardio consult. If pt does stay another day, pt will need to have IV access and continue with iron sucrose.
[2020-10-02] MEDS: PANTOPRAZOLE 40 MG TABLET PO (11:43)
[2020-10-02] MEDS: SUCRALFATE 1 GM TABLET PO ×2 (11:43→16:36)
--- NOTE | 2020-10-02 11:43 | PCNFU ---
Nutrition Follow-Up Complete: Altered GI function as related to GI bleed as evidenced by clear liquids/NPO Goal: Meet estimated nutritional needs Progressing towards goal. We will continue current goal. Pt current nutrition is heart healthy with Ensure compact BID. Nutrition recommendation:DBCC/heart healthy Last recorded weight is 75.3 kg,no new weight reported. Bowel Motility:+BM reported 10/01 Labs Reviewed:Glu 125,Hgb 6.4 Meds Noted:Invokana,Lovaza,Toprol,Novolog,Betapace,MVI. Additional Notes: Nutrition follow up. Patient had EGD/colonoscopy yesterday. diet order advanced with oral intake greater than 75% of meals. Cardiology consult today. Monitoring: Will monitor every 7 days.
[2020-10-02 12:11] LABS: Glucose Point of Care 223 (65-105)
--- NOTE | 2020-10-02 12:25 | PM.IMPN ---
Progress Note: A&P Assessment and Plan (1) GI bleed: Qualifiers: GI bleed type/associated pathology: unspecified gastrointestinal hemorrhage type Qualified Code(s): K92.2 - Gastrointestinal hemorrhage, unspecified Code(s): K92.2 - Gastrointestinal hemorrhage, unspecified Status: Acute Assessment and Plan: 10/02/20 12:25 H&H every 6 hours. Patient is to be transfused with 2 units of packed red blood cells. Her Eliquis and aspirin are on hold at this time. GI consult has been placed. The patient has had a history of having a GI bleed in the past and has had have blood. Patient was on Coumadin at 1 time. The patient currently has a watchman. Patient's stool for occult blood was positive. 09/30 75-year-old female with history of atrial fibrillation status post abalation has watchman placed and patient anticoagulated with Eliquis, patient had been being tired and fatigued, patient denies any abdominal pain nausea or vomiting hematoma emesis hematochezia or bright red blood per rectum, was seen by her primary and suspect anemia patient was sent to emergency depart, her primary stopped Eliquis, in emergency depart patient was positive occult blood as well as a hemoglobin was 6.6, patient will receive 2 units of pack RBC, patient seen by GI patient has history gastric and colon polyps and her last EGD and colonoscopy was 5 years of ago, GI has scheduled EGD and colonoscopy tomorrow and further recommendation to follow, will continue to monitor H and H, 10/01 Patient stats feeling better denies any a abdominal pain nausea or vomiting or bleeding, patient received 2 units of pack RBC her H&H is stable, is scheduled for EGD and colonoscopy today, patient does complaint palpitation with history of atrial fibrillation and she missed couple of dose of her sotalol we have resumed and will monitor will follow-up on EGD and colonoscopy and further recommendation to follow 10/[address] Leon is present in the room, patient hasno complains abdominal pain nausea or vomiting or bleeding patient is able to tolerate her diet, discussed with Dr. Leon suspect most likely upper GI bleed due to several large polyps in the stomach, recommended to continue PPI and added Carafate, also recommending to hold anticoagulation for 1-2 months as patient has history of atrial fibrillation, will consult Cardiology for their recommendation and will follow-up and plan. Patient instructed to avoid NSAIDs (2) DM (diabetes mellitus): Code(s): E11.9 - Type 2 diabetes mellitus without complications Status: Acute Assessment and Plan: Accu-Cheks AC and HS. Sliding scale insulin. Holding metformin (3) Hypertension: Code(s): I10 - Essential (primary) hypertension Status: Acute Assessment and Plan: Continue with sotalol. Metoprolol and losartan and Lasix (4) A-fib: Code(s): I48.91 - Unspecified atrial fibrillation Status: Acute Assessment and Plan: Patient is on sotalol and metoprolol. I am holding her Eliquis and aspirin. (5) Dyslipidemia: Code(s): E78.5 - Hyperlipidemia, unspecified Status: Acute Assessment and Plan: She is on Co Q10 and atorvastatin (6) Anemia: Qualifiers: Anemia type: unspecified type Qualified Code(s): D64.9 - Anemia, unspecified Code(s): D64.9 - Anemia, unspecified Status: Acute Assessment and Plan: Anemia most likely secondary upper GI bleed plan is above Subjective Date/time seen: 10/02/20 12:25 H&H every 6 hours. Patient is to be transfused with 2 units of packed red blood cells. Her Eliquis and aspirin are on hold at this time. GI consult has been placed. The patient has had a history of having a GI bleed in the past and has had have blood. Patient was on Coumadin at 1 time. The patient currently has a watchman. Patient's stool for occult blood was positive. 09/30 75-year-old female with hi
[2020-10-02] MEDS: INSULIN ASPART (*BKC) 100 UNITS/ML SUB-Q (12:38)
[2020-10-02 14:00] VITALS: BP 125/85; PULSE 66; RESP 18; TEMP 36.4; O2SAT 99
--- NOTE | 2020-10-02 16:29 | PM.CNCAR ---
Assessment and Plan Assessment and plan (1) Paroxysmal atrial fibrillation: Code(s): I48.0 - Paroxysmal atrial fibrillation Status: Acute Assessment and Plan: Currently sinus rhythm on exam. Reportedly patient developed atrial fibrillation when sotalol was held return to sinus rhythm upon resumption. Transient asymptomatic bradycardia reported but patient telemetry has been discontinued. No acute issues this time. Continue current medical therapy. Nonetheless, will check 12 lead EKG prior to discharge to assess QT corrected interval. If possible at least aspirin 81 mg daily would be beneficial. She will follow up with me as scheduled as an outpatient next month. Disposition per hospitalist service provided EKG is acceptable. (2) Acute blood loss anemia: Code(s): D62 - Acute posthemorrhagic anemia Status: Acute Assessment and Plan: Status post 2 units transfusion due to severe symptomatic anemia. GI advises holding systemic anticoagulation (?ASA) for at least 1-2 months and preferably longer per their report. (3) Gastric polyps: Code(s): K31.7 - Polyp of stomach and duodenum Status: Acute Assessment and Plan: As above, EGD and colonoscopy reports reviewed. Gastric polyps source of bleeding. (4) Presence of Watchman left atrial appendage closure device: Code(s): Z95.818 - Presence of other cardiac implants and grafts Status: Acute Assessment and Plan: Holding systemic anticoagulation and or aspirin is problematic given recent Watchman implantation with recommendations generally for 6 months systemic anticoagulation. As such, patient is at higher embolic stroke risk. Patient is aware and accepts this risk as she knows there is not much else we can do at this time. She will follow up at [facility] as scheduled October 12 post Watchman implantation. (5) CAD (coronary artery disease): Code(s): I25.10 - Atherosclerotic heart disease of [place] coronary artery without angina pectoris Status: Acute Assessment and Plan: Continue atorvastatin, losartan as BP permits, Toprol XL 12.5 mg daily (6) DM (diabetes mellitus): Code(s): E11.9 - Type 2 diabetes mellitus without complications Status: Acute Assessment and Plan: Per primary service. History of Present Illness History of Present Illness Consult date/time: Date of service: 10/02/20 16:29 Cardiology consultation at the request of Dr. Garcia for our opinion regarding atrial fibrillation and bradycardia. Requesting physician: Sherita Garcia MD Consult reason: atrial fibrillation Reason For Visit: GI bleed, anemia Narrative: Patient is a very pleasant 75-year-old female well known to me whom I follow as an outpatient past medical history significant for CAD, prior stent implantation, paroxysmal atrial fibrillation, history of TIA, diabetes mellitus, hypertension, history of breast cancer status post chemotherapy and radiation who was seen in the office at a routine visit 09/25/2020 with complaints of feeling much more exhausted, weakness, exertional dyspnea. She noted weak voice in her cough post PVI ablation for atrial fibrillation and Watchman device placement 08/29/2020 at [facility]. Patient was on aspirin and Eliquis with recommendations for 6 months post procedure. She was also maintained on sotalol and metoprolol. It was noted at that time preoperatively hemoglobin 11.5 and declined 8.3 at discharge. At that time I ordered a repeat CBC with Hgb found to be slightly lower at 7.9. She then followed up with her PCP and was feeling worse. on 09/30 Hgb 6.4 now s/p 2U PBCS's. Apparently due to relative hypotension her medications were held including sotalol metoprolol. Patient subsequent developed palpitations with atrial fibrillation resolved with resumption of her medical therapy. Apparently there was notation of heart rate in the 50s although patient asymptomatic. No 12 lead EKGs
--- NOTE | 2020-10-02 16:30 | ECG_ITS ---
Measurements Intervals [place] Rate: 71 P: -5 WA: 180 QRS: -22 QRSD: 85 T: 3 QT: 393 QTc: 428 Interpretive Statements SINUS OR ECTOPIC ATRIAL RHYTHM LOW QRS VOLTAGE IN PRECORDIAL LEADS BORDERLINE R WAVE PROGRESSION, ANTERIOR LEADS INFERIOR INFARCT, AGE INDETERMINATE BORDERLINE T WAVE ABNORMALITY- ANTEROLATERAL LEADS BASELINE ARTIFACT- V4 ABNORMAL ECG Electronically Signed On 10-02-2020 19:29:42 CDT by Mik Monsalve D.O.
[2020-10-02 16:35] VITALS: PULSE 68
[2020-10-02 17:41] LABS: Glucose Point of Care 191 (65-105)
--- NOTE | 2020-10-02 17:47 | PM.DS ---
DS: Admitting Diagnosis Admitting Diagnosis Admitting Diagnosis: GI bleed DS: Discharge Diagnosis Discharge Diagnosis (1) GI bleed: Qualifiers: GI bleed type/associated pathology: unspecified gastrointestinal hemorrhage type Qualified Code(s): K92.2 - Gastrointestinal hemorrhage, unspecified Code(s): K92.2 - Gastrointestinal hemorrhage, unspecified Status: Acute Assessment and Plan: H&H every 6 hours. Patient is to be transfused with 2 units of packed red blood cells. Her Eliquis and aspirin are on hold at this time. GI consult has been placed. The patient has had a history of having a GI bleed in the past and has had have blood. Patient was on Coumadin at 1 time. The patient currently has a watchman. Patient's stool for occult blood was positive. 09/30 75-year-old female with history of atrial fibrillation status post abalation has watchman placed and patient anticoagulated with Eliquis, patient had been being tired and fatigued, patient denies any abdominal pain nausea or vomiting hematoma emesis hematochezia or bright red blood per rectum, was seen by her primary and suspect anemia patient was sent to emergency depart, her primary stopped Eliquis, in emergency depart patient was positive occult blood as well as a hemoglobin was 6.6, patient will receive 2 units of pack RBC, patient seen by GI patient has history gastric and colon polyps and her last EGD and colonoscopy was 5 years of ago, GI has scheduled EGD and colonoscopy tomorrow and further recommendation to follow, will continue to monitor H and H, 10/01 Patient stats feeling better denies any a abdominal pain nausea or vomiting or bleeding, patient received 2 units of pack RBC her H&H is stable, is scheduled for EGD and colonoscopy today, patient does complaint palpitation with history of atrial fibrillation and she missed couple of dose of her sotalol we have resumed and will monitor will follow-up on EGD and colonoscopy and further recommendation to follow 10/[address] Leon is present in the room, patient hasno complains abdominal pain nausea or vomiting or bleeding patient is able to tolerate her diet, discussed with Dr. Leon suspect most likely upper GI bleed due to several large polyps in the stomach, recommended to continue PPI and added Carafate, also recommending to hold anticoagulation for 1-2 months as patient has history of atrial fibrillation, will consult Cardiology for their recommendation and will follow-up and plan. Patient instructed to avoid NSAIDs (2) DM (diabetes mellitus): Code(s): E11.9 - Type 2 diabetes mellitus without complications Status: Acute (3) Hypertension: Code(s): I10 - Essential (primary) hypertension Status: Acute (4) A-fib: Code(s): I48.91 - Unspecified atrial fibrillation Status: Acute DS: Summary Hospital Course Reason for hospitalization: this is a 75-year-old female patient who came to the emergency room with her family today because of generalized weakness and tiredness. She has been this way since last month. The patient stated that she received a watchman on 08/28/2020 and has been feeling tired every since then. The patient has a history of atrial fibrillation but had an ablation and has a Watchman now. Patient stated that she had been on Coumadin in the past and had some bleeding with that. The patient has been placed on Eliquis now. She is currently in sinus rhythm. Since she received her ablation she has been in sinus rhythm. The patient has been on Protonix at home. She was also on an aspirin. The patient was started on IV fluids. 7.4 and 25.8. H&H is now 6.[address] Leon has been consulted. The patient was started on pantoprazole. Patient is to get 2 units of packed red blood cells today. The patient stated that she has been having some dark stools. However she did realize that she is bleeding until the ER doctor did a stool for occult b
== END 2020-10-02 18:25 | disposition home or self-care (01) | DRG 394 ==
LOC: ANHED 17:25 → ANH3MEDSUR 18:46
PROVIDERS: Emergency Medicine; Internal Medicine Gastroenterology; Nurse Practitioner; Physician Assistant; Admitting Provider Internal Medicine; Emergency Provider Emergency Medicine; PCP Internal Medicine; Visit Provider Family Medicine
PROC: 0DJ08ZZ Inspection of Upper Intestinal Tract, Via Natural or Artificial Opening Endoscopic (ICD-10-PCS; CPT 43235; principal; 2020-10-01 11:30)
DX: K31.7 Polyp of stomach and duodenum (principal); I48.20 Chronic atrial fibrillation, unspecified; K92.2 Gastrointestinal hemorrhage, unspecified; D62 Acute posthemorrhagic anemia; D12.3 Benign neoplasm of transverse colon; D12.8 Benign neoplasm of rectum; M19.90 Unspecified osteoarthritis, unspecified site; K57.30 Diverticulosis of large intestine without perforation or abscess without bleeding; K64.8 Other hemorrhoids; K21.9 Gastro-esophageal reflux disease without esophagitis; I25.10 Atherosclerotic heart disease of native coronary artery without angina pectoris; E11.9 Type 2 diabetes mellitus without complications; I10 Essential (primary) hypertension; E78.00 Pure hypercholesterolemia, unspecified; E66.9 Obesity, unspecified; I25.2 Old myocardial infarction; Z85.3 Personal history of malignant neoplasm of breast; Z86.73 Personal history of transient ischemic attack (TIA), and cerebral infarction without residual deficits; Z68.31 Body mass index [BMI] 31.0-31.9, adult; Z90.49 Acquired absence of other specified parts of digestive tract; Z98.42 Cataract extraction status, left eye; Z98.41 Cataract extraction status, right eye; Z95.5 Presence of coronary angioplasty implant and graft
CPT/HCPCS: 36415; 36430; 80048; 80053; 82607; 82728; 82746; 82948; 83540; 83550; 83735; 85014; 85018; 85025; 85027; 85055; 86850; 86900; 86901; 86920; 88305; 93005; 96361; 96374; 96375; 99285; A9270; C9113; G0378; J0131; J1756; J1815; J2704; J3480; J7030; J7120; P9016

== ENCOUNTER 2020-10-29 12:54 | Outpatient (CLI) | payer MEDICARE, SELFPAY ==
--- NOTE | ~2020-10-29 | DEXA_ITS ---
Bone Density Report Name: Jackie Waddell Age: 75 Sex: Female Ethnicity: White Date of : 1945 Indication: postmenopausal; height loss; cancer; rheumatoid arthritis; Referring Provider: SABA ELAM Study: Bone densitometry was performed. Exam Date: October 29, 2020 Accession number: [id number] Bone Density: Region BMD T-score Z-score Classification AP Spine (L1-L4) 0.997 -0.5 1.9 Normal Femoral Neck (Left) 0.740 -1.0 1.1 Normal Total Hip (Left) 0.909 -0.3 1.5 Normal Total Hip Bilateral Avg 0.910 -0.3 1.5 Normal Femoral Neck (Right) 0.708 -1.3 0.8 Osteopenia Total Hip (Right) 0.911 -0.3 1.5 Normal World Health Organization criteria for BMD impression classify patients as: Normal (T-score at or above -1.0), Osteopenia (T-score between -1.0 and -2.5), or Osteoporosis (T-score at or below -2.5). 10-year Fracture Risk(1): Major Osteoporotic Fracture 13% Hip Fracture 2.3% Reported Risk Factors: [place] (), Neck BMD=0.708, BMI=30.6, rheumatoid arthritis (1) FRAX(R) Version 3.08. Fracture probability calculated for an untreated patient. Fracture probability may be lower if the patient has received treatment. Previous Exams: Region Exam Age BMD T-score BMD Change BMD Change Date g/cm2 vs Baseline vs Previous AP Spine(L1-L4) 10/29/2020 75 0.997 -0.5 0.008(0.8%)# 0.005(0.5%) 01/28/2015 70 0.992 -0.5 0.004(0.4%)# -0.005(-0.5%)# 10/08/2010 65 0.997 -0.5 0.009(0.9%) 0.025(2.6%)* 02/26/2008 63 0.973 -0.7 -0.016(-1.6%) -0.011(-1.1%) 11/17/2005 60 0.983 -0.6 -0.005(-0.5%) -0.005(-0.5%) 07/23/2003 58 0.989 -0.5 Total Hip(Left) 10/29/2020 75 0.909 -0.3 -0.079(-8.0%)# -0.092(-9.2%)* 01/28/2015 70 1.001 0.5 0.013(1.3%)# 0.037(3.8%)# 10/08/2010 65 0.964 0.2 -0.024(-2.5%) 0.036(3.9%)* 02/26/2008 63 0.928 -0.1 -0.060(-6.1%)* -0.004(-0.4%) 11/17/2005 60 0.931 -0.1 -0.057(-5.8%)* -0.057(-5.8%)* 07/23/2003 58 0.988 0.4 Total Hip(Right) 10/29/2020 75 0.911 -0.3 -0.017(-1.8%)# -0.048(-5.0%)* 01/28/2015 70 0.959 0.1 0.031(3.4%)# -0.020(-2.0%)# 10/08/2010 65 0.979 0.3 0.051(5.5%)* 0.027(2.8%) 02/26/2008 63 0.953 0.1 0.024(2.6%) 0.006(0.7%) 11/17/2005 60 0.946 0.0 0.018(2.0%) 0.018(2.0%) 07/23/2003 58 0.928 -0.1 *Denotes significance at 95% confidence level, LSC for AP Spine = 0.022 g/cm2, LSC for Total Hip = 0.027 g/cm2 Clinical Information Provided by Patient:
== END 2020-10-29 12:55 | disposition home or self-care (01) ==
LOC: ANHIMG 12:56
PROVIDERS: PCP Internal Medicine; Visit Provider Obstetrics & Gynecology
DX: Z78.0 Asymptomatic menopausal state (principal); M85.851 Other specified disorders of bone density and structure, right thigh
CPT/HCPCS: 77080

== ENCOUNTER 2020-11-12 13:36 | Outpatient (CLI) | payer MEDICARE, SELFPAY ==
--- NOTE | ~2020-11-12 | MM_ITS ---
EXAMINATION: MM diagnostic lucinda BI w david HISTORY: History of left breast cancer TECHNIQUE: ML, MLO and craniocaudal 3-D tomosynthesis images of both breasts were performed and synth etic 2-D images were generated. Rotated lateral craniocaudal views of right breast. CAD analysis was submitted and interpreted. COMPARISON: 01/16/2020, , 02/03/2017 bilateral digital screening mammogram examinations 12/12/2018diagnostic left digital mammogram Breast parenchymal composition: There are scattered areas of fibroglandular density. FINDINGS: Status post left partial mastectomy for breast cancer. Bilateral benign calcifications including prominent bilateral calcifications of fat necrosis. No susp icious mass or architectural distortion, malignant calcification, skin thickening or retraction or si gnificant new or developing density is evident. IMPRESSION: 1. Status post partial left mastectomy for breast cancer. Benign findings 2. Routine mammographic screening is recommended BI-RADS Category 2: Benign finding(s). Reviewed, dictated and finalized at location A.
--- NOTE | ~2020-11-12 | US_ITS ---
US breast BI complete DATE: 11/12/2020 15:22 INDICATION: History of left breast cancer TECHNIQUE: High-resolution ultrasound imaging of complete bilateral breasts. COMPARISON: 11/12/2020 bilateral diagnostic digital mammography FINDINGS: There are prominent bilateral areas of calcified fat necrosis, with associated shadowing, i dentified particularly 8:00 on the right and 3:00 and 4:00 on the left. Otherwise no suspicious mass or shadowing is noted. IMPRESSION: BI-RADS Category 2: Benign Recommendation: Routine mammographic screening Reviewed, dictated and finalized at Location A. Reviewed, dictated and finalized at location A.
== END 2020-11-12 13:37 | disposition home or self-care (01) ==
PROVIDERS: PCP Internal Medicine
DX: R92.1 Mammographic calcification found on diagnostic imaging of breast (principal); N64.1 Fat necrosis of breast
CPT/HCPCS: 76641; 77062; 77066; G0279

== ENCOUNTER 2021-01-06 10:59 | Outpatient (CLI) | payer MEDICARE, SELFPAY ==
[2021-01-06 11:46] LABS: Basophils Absolute Auto 0.1 K/mm3 (0.0-0.1); Basophils Percent Auto 0.6 % (0.2-1.2); Eosinophils Percent Auto 0.2 % (0-4.4); Hematocrit 35.9 % (37.0-47.0); Hemoglobin 10.5 g/dL (12.0-15.0); Immature Granulocyte Absolute 0.03 K/mm3 (0.00-0.031); Immature Granulocyte Percent A 0.3 % (0-0.5); Immature Platelet Fraction Pct 9.7 % (0.9-11.2); Lymphocytes Absolute Auto 1.66 K/mm3 (0.9-3.2); Lymphocytes Percent Auto 17.4 % (18.3-44.2); Mean Corpuscular HGB Conc 29.2 g/dl (32-36); Mean Corpuscular Hemoglobin 24.5 pg (26-34); Mean Corpuscular Volume 83.7 fl (80-100); Mean Platelet Volume 12.1 fl (7.4-10.4); Monocytes Absolute Auto 0.5 K/mm3 (0.1-0.6); Monocytes Percent Auto 5.6 % (2.6-8.5); Neutrophils Absolute Auto 7.2 K/mm3 (1.3-6.7); Neutrophils Percent Auto 75.9 % (45.5-73.1); Platelet Count Result 130 k/mm3 (150-375); Red Blood Count 4.29 M/mm3 (4.2-5.4); Red Cell Distribution Width 15.2 % (11.5-14.5); White Blood Count 9.5 K/mm3 (4.5-10.0)
[2021-01-06 12:02] LABS: Alanine Aminotransferase 13 U/L (4-35); Albumin Level 3.6 g/dL (3.5-5.1); Alkaline Phosphatase 75 U/L (38-126); Aspartate Amino Transferase 27 U/L (14-36); Bilirubin,Total 0.5 mg/dL (0.2-1.3); Blood Urea Nitrogen 15 mg/dL (7-17); Calcium 9.5 mg/dL (8.4-10.2); Carbon Dioxide 30 mmol/L (22-30); Estimated Glomerular Filt Rate > 60; Glucose 141 mg/dL (65-110); Potassium 4.3 mmol/L (3.4-5.0); Sodium 138 mmol/L (137-145)
[2021-01-06 12:21] LABS: Anion Gap 6 mmol/L (8-16); Chloride 102 mmol/L (98-107)
[2021-01-06 12:29] LABS: Creatinine Urine 107.1 mg/dL
[2021-01-06 12:34] LABS: MALB Creatinine Ratio 20.4 mg/g (0-30); Microalbumin Urine Random 21.9 mg/L (0-16.7)
[2021-01-06 14:35] LABS: Hemoglobin A1C 7.4 % (<5.7)
== END 2021-01-06 11:00 | disposition home or self-care (01) ==
PROVIDERS: PCP Internal Medicine; Visit Provider Internal Medicine
DX: I25.10 Atherosclerotic heart disease of native coronary artery without angina pectoris (principal); I48.91 Unspecified atrial fibrillation; E11.9 Type 2 diabetes mellitus without complications
CPT/HCPCS: 36415; 80053; 82043; 83036; 85025; 85055

== ENCOUNTER 2021-01-08 11:31 | Outpatient (CLI) | payer MEDICARE, SELFPAY ==
[2021-01-08 12:52] LABS: Iron 31 ug/dL (37-170)
[2021-01-08 13:00] LABS: Percent Iron Saturation 8 % (20-50)
[2021-01-08 13:26] LABS: Folic Acid > 20.0 ng/mL (2.76->20)
== END 2021-01-08 11:32 | disposition home or self-care (01) ==
LOC: ANHLAB 11:33
PROVIDERS: PCP Internal Medicine; Visit Provider Internal Medicine
DX: D64.9 Anemia, unspecified (principal); D69.6 Thrombocytopenia, unspecified; E11.65 Type 2 diabetes mellitus with hyperglycemia
CPT/HCPCS: 36415; 82607; 82728; 82746; 83540; 83550

== ENCOUNTER 2021-04-19 12:56 | Outpatient (CLI) | payer MEDICARE, SELFPAY ==
[2021-04-19 13:36] LABS: Hematocrit 33.3 % (37.0-47.0); Hemoglobin 10.3 g/dL (12.0-15.0); Mean Corpuscular HGB Conc 30.9 g/dl (32-36); Mean Corpuscular Hemoglobin 24.6 pg (26-34); Mean Corpuscular Volume 79.7 fl (80-100); Mean Platelet Volume 12.6 fl (7.4-10.4); Platelet Count Result 139 k/mm3 (150-375); Red Blood Count 4.18 M/mm3 (4.2-5.4); Red Cell Distribution Width 15.4 % (11.5-14.5); White Blood Count 11.2 K/mm3 (4.5-10.0)
[2021-04-19 13:40] LABS: Hemoglobin A1C 6.3 % (<5.7)
[2021-04-19 13:42] LABS: Anion Gap 10 mmol/L (8-16); Blood Urea Nitrogen 13 mg/dL (7-17); Calcium 8.4 mg/dL (8.4-10.2); Carbon Dioxide 30 mmol/L (22-30); Chloride 100 mmol/L (98-107); Estimated Glomerular Filt Rate > 60; Glucose 110 mg/dL (65-110); Potassium 4.3 mmol/L (3.4-5.0); Sodium 140 mmol/L (137-145)
[2021-04-19 13:57] LABS: Creatinine Urine 234.9 mg/dL
[2021-04-19 14:02] LABS: MALB Creatinine Ratio 11.8 mg/g (0-30); Microalbumin Urine Random 27.7 mg/L (0-16.7)
== END 2021-04-19 12:57 | disposition home or self-care (01) ==
LOC: ANHLAB 13:00
PROVIDERS: PCP Internal Medicine; Visit Provider Internal Medicine
DX: D64.9 Anemia, unspecified (principal); D69.6 Thrombocytopenia, unspecified; E11.65 Type 2 diabetes mellitus with hyperglycemia
CPT/HCPCS: 36415; 80048; 82043; 83036; 85027

== ENCOUNTER 2021-04-21 10:39 | Outpatient (CLI) | payer MEDICARE, SELFPAY ==
[2021-04-21 12:16] LABS: Iron 30 ug/dL (37-170)
[2021-04-21 12:25] LABS: Percent Iron Saturation 9 % (20-50)
== END 2021-04-21 10:40 | disposition home or self-care (01) ==
LOC: ANHLAB 10:40
PROVIDERS: PCP Internal Medicine; Visit Provider Internal Medicine
DX: E11.65 Type 2 diabetes mellitus with hyperglycemia (principal); D64.9 Anemia, unspecified
CPT/HCPCS: 36415; 82728; 83540; 83550

== ENCOUNTER 2021-04-22 14:30 | Outpatient (CLI) | payer MEDICARE, SELFPAY ==
[2021-04-22 15:03] LABS: IFOB Positive Control Positive; Immunochemical Fecal Occult Bl Negative (N)
== END 2021-04-22 14:31 | disposition home or self-care (01) ==
LOC: ANHLAB 14:35
PROVIDERS: PCP Internal Medicine; Visit Provider Internal Medicine
DX: D64.9 Anemia, unspecified (principal)
CPT/HCPCS: 82274

== ENCOUNTER 2021-07-06 14:51 | Outpatient (CLI) | payer MEDICARE, SELFPAY ==
--- NOTE | ~2021-07-06 | US_ITS ---
EXAMINATION: US soft tissue UE LT DATE: 07/06/2021 16:18 INDICATION: Localized swelling, mass and lump of skin and subcutaneous tissue. TECHNIQUE: Multiple grayscale and Doppler ultrasound images of the region of concern at the medial di stal left forearm were obtained. COMPARISON: None FINDINGS: There is 11 x 7 x 2 mm hypoechoic subdermal nodule without posterior acoustic enhancement and with in ternal vascular flow on color Doppler consistent with a nonspecific solid nodule. The lesion extends to within 1 mm of the skin surface. IMPRESSION: 1. Indeterminate 11 x 7 x 2 mm superficial subdermal nodule at the region of concern which could be e ither benign or malignant. Consider biopsy for pathologic correlation. Reviewed, dictated and finalized at location A. SORTER IMPRESSION: 1. Indeterminate 11 x 7 x 2 mm superficial subdermal nodule at the region of co ncern which could be either benign or malignant. Consider biopsy for pathologic correlation.
== END 2021-07-06 14:52 | disposition home or self-care (01) ==
PROVIDERS: PCP Internal Medicine
DX: R22.32 Localized swelling, mass and lump, left upper limb (principal)
CPT/HCPCS: 76882

== ENCOUNTER 2021-07-21 10:19 | Outpatient (CLI) | payer MEDICARE, SELFPAY ==
[2021-07-21 11:22] LABS: Anion Gap 8 mmol/L (8-16); Blood Urea Nitrogen 12 mg/dL (7-17); Calcium 8.8 mg/dL (8.4-10.2); Carbon Dioxide 31 mmol/L (22-30); Chloride 100 mmol/L (98-107); Estimated Glomerular Filt Rate > 60; Glucose 116 mg/dL (65-110); Potassium 3.7 mmol/L (3.4-5.0); Sodium 139 mmol/L (137-145)
== END 2021-07-21 10:20 | disposition home or self-care (01) ==
PROVIDERS: PCP Internal Medicine; Visit Provider Nurse Practitioner Adult Health
DX: Z51.81 Encounter for therapeutic drug level monitoring (principal); Z79.899 Other long term (current) drug therapy
CPT/HCPCS: 36415; 80048

== ENCOUNTER 2021-08-16 12:35 | Outpatient (CLI) | payer MEDICARE, SELFPAY ==
--- NOTE | ~2021-08-16 | MMUS_ITS ---
EXAMINATION: MM diagnostic lucinda BI w david, US breast RT limited HISTORY: History of left breast cancer and reduction mammoplasty, palpable lump at the 12:00 position of the right breast TECHNIQUE: Craniocaudal, mediolateral, and mediolateral oblique 3-D tomosynthesis images of the breas ts were performed and synthetic 2-D images were generated. CAD analysis was submitted and interpreted . High resolution limited right breast ultrasound was performed. COMPARISON: 11/12/2020, 01/16/2020, 12/12/2018, 07/27/2018 BREAST PARENCHYMAL COMPOSITION: There are scattered areas of fibroglandular density. FINDINGS: MAMMOGRAPHIC FINDINGS: There are stable dystrophic calcifications in the breasts related to prior breast surgery. No suspici ous mass, calcification, or architectural distortion are identified. There is no mammographic correla te for the patient's reported palpable right breast lump. ULTRASOUND: There is no evidence of focal abnormal solid or cystic mass in the vicinity of the reported palpable abnormality of concern in the right breast. Sonographic changes of dystrophic calcification in the la teral cyst formation are noted. IMPRESSION: 1. No specific mammographic or sonographic correlate is identified for the reported palpable abnormal ity of concern in the right breast. Further evaluation at this time should be based on clinical asses sment. Continued follow-up physical examination is recommended. 2. Recommend routine screening mammography in one year. BI-RADS Category 2: Benign finding(s). Reviewed, dictated and finalized at location A. IMPRESSION: 1. No specific mammographic or sonographic correlate is identified for the repo rted palpable abnormality of concern in the right breast. Further evaluation at this time should be based on clinical assessment. Continued follow-up physical examination is recommended. 2. Recommend routine screening mammography in one year. BI-RADS Category 2: Benign finding(s).
== END 2021-08-16 12:36 | disposition home or self-care (01) ==
LOC: ANHIMG 12:37
PROVIDERS: PCP Internal Medicine; Visit Provider Internal Medicine Medical Oncology
DX: C50.412 Malignant neoplasm of upper-outer quadrant of left female breast (principal); Z17.0 Estrogen receptor positive status [ER+]
CPT/HCPCS: 76642; 77062; 77066; G0279

== ENCOUNTER 2021-09-14 12:34 | Outpatient (CLI) | payer MEDICARE, SELFPAY ==
--- NOTE | ~2021-09-14 | CT_ITS ---
EXAMINATION: CT LE LT wo con DATE: 09/14/2021 12:59 INDICATION: Unilateral primary osteoarthritis, left knee. TECHNIQUE: Computed tomography (CT) of the left lower extremity was performed without intravenous con trast. Automated exposure control and iterative reconstruction technique were employed. The dose-elsa th product was 1501.03 mGy-cm. COMPARISON: Left knee CT 04/20/2020, radiographs 08/09/2021 FINDINGS: Bone alignment is normal. No fracture. There is mild left hip osteoarthritis. The knee demo nstrates severe osteoarthritis of the medial and lateral compartments and moderate osteoarthritis of patellofemoral compartment. There is a small knee joint effusion with 3 mm loose body. There is a sma ll Crawford's cyst. There is mild ankle joint osteoarthritis. IMPRESSION: 1. Severe left knee osteoarthritis. 2. Small left knee joint effusion with loose body. 3. Small Crawford's cyst. Reviewed, dictated and finalized at location A.
== END 2021-09-14 12:35 | disposition home or self-care (01) ==
LOC: ANHIMG 12:38
PROVIDERS: PCP Internal Medicine; Visit Provider Orthopaedic Surgery
DX: M17.12 Unilateral primary osteoarthritis, left knee (principal); M71.22 Synovial cyst of popliteal space [Baker], left knee; M23.42 Loose body in knee, left knee; M25.462 Effusion, left knee
CPT/HCPCS: 73700

== ENCOUNTER 2021-10-05 13:06 | Outpatient (CLI) | payer MEDICARE, SELFPAY ==
--- NOTE | 2021-10-05 | ECG_ITS ---
Measurements Intervals Davis Rate: 77 P: 146 MT: 177 QRS: -33 QRSD: 81 T: 11 QT: 409 QTc: 463 Interpretive Statements SINUS RHYTHM POOR R WAVE PROGRESSION, ANTERIOR LEADS INFERIOR INFARCT, AGE INDETERMINATE BORDERLINE T WAVE ABNORMALITY- ANTEROLATERAL LEADS BASELINE WANDER- I, II, III, V6 ABNORMAL ECG Electronically Signed On 10-05-2021 14:40:52 CDT by Mik Monsalve D.O.
[2021-10-05 13:31] LABS: Hematocrit 34.6 % (37.0-47.0); Hemoglobin 11.2 g/dL (12.0-15.0)
[2021-10-05 13:58] LABS: Albumin Level 3.8 g/dL (3.5-5.1); Estimated Glomerular Filt Rate > 60; Glucose 177 mg/dL (65-110)
== END 2021-10-05 13:07 | disposition home or self-care (01) ==
LOC: ANHLAB 13:12
PROVIDERS: PCP Internal Medicine; Visit Provider Orthopaedic Surgery
DX: Z01.818 Encounter for other preprocedural examination (principal); I25.2 Old myocardial infarction; I48.91 Unspecified atrial fibrillation; E11.9 Type 2 diabetes mellitus without complications; I25.10 Atherosclerotic heart disease of native coronary artery without angina pectoris; I10 Essential (primary) hypertension; K21.9 Gastro-esophageal reflux disease without esophagitis
CPT/HCPCS: 36415; 82040; 82565; 82947; 83036; 85014; 85018; 93005

== ENCOUNTER 2021-10-21 15:37 | Outpatient (CLI) | payer MEDICARE, SELFPAY ==
--- NOTE | ~2021-10-21 | US_ITS ---
EXAMINATION: US thyroid DATE: 10/21/2021 17:13 INDICATION: Nontoxic single thyroid nodule. TECHNIQUE: Multiple ultrasound images of the thyroid were obtained. COMPARISON: Ultrasound 10/09/2009 FINDINGS: The right thyroid lobe measures 4.9 x 1.8 x 1.6 cm. The left thyroid lobe measures 6.0 x 2.1 x 2.1 c m. In the left thyroid lobe, there is a 2.5 cm solid, hypoechoic, nubiq-oieg-rmnp nodule with ill-de fined margin without echogenic foci (TI-RADS TR4), stable from 10/09/2009. In the right thyroid lobe, t here is a 9 mm solid, hypoechoic, kkwou-bmdz-spoh nodule with smooth margin and punctate echogenic fo ci (TR5), stable from 10/09/2009. In the left thyroid lobe, there is a 10 mm cystic and solid, hypoecho ic, anvsa-jgxo-ywjb than tall nodule with smooth margin without echogenic foci (TR3), stable from 10/09. IMPRESSION: 1. Multinodular goiter, stable from 10/09/2009, likely benign. No follow-up is needed. Reviewed, dictated and finalized at location A. IMPRESSION: 1. Multinodular goiter, stable from 10/09/2009, likely benign. No follow-up is ne eded.
--- NOTE | ~2021-10-21 | MR_ITS ---
EXAMINATION: MR brain/brain stem wo/w con DATE: 10/21/2021 16:36 INDICATION: Personal history of transient ischemic attack. Syncope. TECHNIQUE: Magnetic resonance imaging (MRI) of the brain and brainstem was performed without and with 14 mL MultiHance intravenous contrast. COMPARISON: Brain MRI 10/04/2019 FINDINGS: There are scattered areas of nonspecific increased T2-weighted signal intensity in the cere bral white matter. There is a punctate old microhemorrhage in the right cerebral white matter. There is no acute ischemic infarct or abnormal mass lesion. The ventricles are normal in size. The paranasa l sinuses are clear. There are likely changes of ocular lens replacement surgeries. The mastoid air c ells are normal. IMPRESSION: 1. Moderate nonspecific cerebral white matter disease, which likely represents chronic small vessel i schemic disease, mildly worsened from 10/04/2019. Reviewed, dictated and finalized at location A. IMPRESSION: 1. Moderate nonspecific cerebral white matter disease, which likely represents chronic small vessel ischemic disease, mildly worsened from 10/04/2019.
== END 2021-10-21 15:38 | disposition home or self-care (01) ==
PROVIDERS: PCP Internal Medicine; Visit Provider Internal Medicine
DX: Z86.73 Personal history of transient ischemic attack (TIA), and cerebral infarction without residual deficits (principal); R90.82 White matter disease, unspecified; E04.2 Nontoxic multinodular goiter
CPT/HCPCS: 70553; 76536; A9577

== ENCOUNTER 2021-10-25 13:16 | Outpatient (CLI) | payer MEDICARE, SELFPAY ==
[2021-10-25 14:24] LABS: Basophils Percent Auto 0.3 % (0.2-1.2); Eosinophils Percent Auto 0.4 % (0-4.4); Hematocrit 37.3 % (37.0-47.0); Immature Granulocyte Absolute 0.03 K/mm3 (0.00-0.031); Immature Granulocyte Percent A 0.3 % (0-0.5); Lymphocytes Absolute Auto 1.74 K/mm3 (0.9-3.2); Lymphocytes Percent Auto 17.2 % (18.3-44.2); Mean Corpuscular HGB Conc 32.2 g/dl (32-36); Mean Corpuscular Hemoglobin 28.6 pg (26-34); Monocytes Absolute Auto 0.6 K/mm3 (0.1-0.6); Monocytes Percent Auto 5.6 % (2.6-8.5); Neutrophils Absolute Auto 7.7 K/mm3 (1.3-6.7); Neutrophils Percent Auto 76.2 % (45.5-73.1); Platelet Count Result 108 k/mm3 (150-375); Red Blood Count 4.19 M/mm3 (4.2-5.4); White Blood Count 10.1 K/mm3 (4.5-10.0)
[2021-10-25 14:36] LABS: Alanine Aminotransferase 18 U/L (6-35); Albumin Level 3.8 g/dL (3.5-5.1); Alkaline Phosphatase 76 U/L (38-126); Anion Gap 6 mmol/L (8-16); Aspartate Amino Transferase 31 U/L (14-36); Bilirubin,Total 0.6 mg/dL (0.2-1.3); Blood Urea Nitrogen 10 mg/dL (7-17); Calcium 8.6 mg/dL (8.4-10.2); Carbon Dioxide 29 mmol/L (22-30); Chloride 101 mmol/L (98-107); Cholesterol 119 mg/dL (0-200); Estimated Glomerular Filt Rate > 60; Glucose 102 mg/dL (65-110); HDL Direct 42 mg/dL; Potassium 4.2 mmol/L (3.4-5.0); Sodium 136 mmol/L (137-145); Triglycerides 91 mg/dL (<150)
[2021-10-25 14:37] LABS: Hemoglobin A1C 5.9 % (<5.7)
[2021-10-25 14:47] LABS: LDL Cholesterol Direct 55 mg/dL
[2021-10-25 15:04] LABS: Creatinine Urine 256.7 mg/dL
[2021-10-25 15:06] LABS: Thyroid Stimulating Hormone 0.448 uIU/mL (0.465-4.680)
[2021-10-25 15:07] LABS: MALB Creatinine Ratio 22.6 mg/g (0-30)
[2021-10-25 15:17] LABS: Vitamin D 25 Hydroxy 41.4 ng/mL
== END 2021-10-25 13:17 | disposition home or self-care (01) ==
LOC: ANHLAB 13:19
PROVIDERS: PCP Internal Medicine; Visit Provider Internal Medicine
DX: R55 Syncope and collapse (principal); E04.1 Nontoxic single thyroid nodule; R13.10 Dysphagia, unspecified; D50.8 Other iron deficiency anemias; D69.6 Thrombocytopenia, unspecified; I48.0 Paroxysmal atrial fibrillation; E78.5 Hyperlipidemia, unspecified; E11.65 Type 2 diabetes mellitus with hyperglycemia; I10 Essential (primary) hypertension; E55.9 Vitamin D deficiency, unspecified
CPT/HCPCS: 36415; 80053; 80061; 82043; 82306; 83036; 84443; 85025

== ENCOUNTER 2021-11-10 14:30 | Outpatient (CLI) | payer MEDICARE, SELFPAY ==
--- NOTE | 2021-11-10 | ECHO_ITS ---
Patient Info Name: Jackie Waddell Age: 76 years : 1945 Gender: Female Ht: 62 in Wt: 150 lbs BSA: 1.74 m2 HR: 77 bpm BP: 110 / 66 mmHg Heart Rhythm: Sinus Rhythm Exam Date: 11/10/2021 3:14 PM Exam Location: [facility] Patient Status: Outpatient Admit Date: 11/10/2021 Staff Ordering Physician: PHYSICIAN NOT ON STAFF, NONSTAFF Archives Specialist: Varinder Tabares, KHALIF, RT Attending Provider: PHYSICIAN NOT ON STAFF, NONSTAFF Exam Type: CA echo doppler color flow Study Info Indications I48.0 - Paroxysmal atrial fibrillation R00.2 - Palpitations R55 - Syncope and collapse Complete two-dimensional, color flow and Doppler transthoracic echocardiogram is performed. Strain analysis performed. Summary 1. Complete two-dimensional, color flow and Doppler transthoracic echocardiogram is performed. 2. Normal left ventricular size with borderline left ventricular hypertrophy. Overall good systolic function, with an ejection fraction of 63%. There is a small area of basal inferior wall hypokinesis. Global longitudinal strain is borderline abnormal at -17%. Diastolic dysfunction is present. 3. Left atrial chamber dimension is moderately enlarged. 4. There is mild aortic valve regurgitation. 5. There is mild tricuspid valve regurgitation. 6. Mild pulmonary hypertension, estimated pulmonary arterial systolic pressure is 40 mmHg. 7. Normal inferior vena cava with >50% collapse upon inspiration consistent with normal right atrial pressure, 10 mmHg. 8. There is mild aortic atherosclerosis. 9. Normal sinus rhythm. Left Ventricle Left ventricular chamber dimension is normal. Left ventricular systolic function is normal, estimated at 60-65%. There is no increased left ventricular wall thickness. Left ventricular septal wall motion is normal. The left ventricular diastolic function is abnormal. Global longitudinal strain is abnormal at 17 %. Right Ventricle Right ventricular chamber dimension is normal. Right ventricular systolic function is normal. Left Atria Left atrial chamber dimension is moderately enlarged. Right Atria Right atrial chamber dimension is normal. Aortic Valve The aortic valve is trileaflet. There is moderate aortic valve sclerosis. There is no aortic valve stenosis. There is mild aortic valve regurgitation. Pulmonic Valve The pulmonic valve is normal. There is no pulmonic valve stenosis. There is trace pulmonic regurgitation. Mitral Valve The mitral valve has thickened leaflets. There is no mitral valve stenosis. There is trace mitral valve regurgitation. The mitral valve annulus is moderately calcified. Tricuspid Valve The tricuspid valve leaflets are normal. There is no significant tricuspid valve stenosis. There is mild tricuspid valve regurgitation. Mild pulmonary hypertension, estimated pulmonary arterial systolic pressure is 40 mmHg. Pericardium/Pleural The pericardium appears normal. There is no pericardial effusion. Inferior Vena Cava Normal inferior vena cava with >50% collapse upon inspiration consistent with normal right atrial pressure, 10 mmHg. Aorta The aortic root size at the sinus of Valsalva is normal. The prox ascending aorta size is normal. There is mild aortic atherosclerosis. Left Ventricular Outflow Tract Name Value Normal
== END 2021-11-10 14:31 | disposition home or self-care (01) ==
LOC: ANHCARD 14:31
PROVIDERS: PCP Internal Medicine; Visit Provider Internal Medicine
DX: I48.0 Paroxysmal atrial fibrillation (principal); I25.10 Atherosclerotic heart disease of native coronary artery without angina pectoris; R00.2 Palpitations
CPT/HCPCS: 93306

== ENCOUNTER 2021-11-18 01:50 | Day surgery (SDC) | payer MEDICARE, SELFPAY ==
[2021-11-02 12:26] VITALS: BMI 27.3
--- NOTE | 2021-11-17 15:43 | WPDANESEPPF ---
Anes - Initial Pre Proc Eval Procedure: Operation Date: 11/18/21 10:45 Proposed Procedures p Esophagogastroduodenoscopy - Jr Leon MD Date/Time: 11/17/21 15:43 Surgeon: Jr Leon MD Pre Op Diagnosis: gastric polyps, dysphagia Patient Data Age: 76 Gender: F Height: 1.57 m Weight: 68 kg Allergies Allergy/AdvReac Type Severity Reaction Status Date / Time No Known Allergies Allergy Verified 11/18/21 10:05 Home Medications Medication Instructions Recorded Confirmed Type CoQ-10 200 mg PO DAILY 04/30/19 11/18/21 History Daily Fiber 2 tablet PO BID 04/30/19 11/18/21 History atorvastatin 40 mg tablet 40 mg PO HS 04/30/19 11/18/21 History sotalol 120 mg tablet 120 mg PO BID 04/30/19 11/18/21 History tamoxifen 20 mg tablet 20 mg PO HS 04/30/19 11/18/21 History furosemide 20 mg tablet 20 mg PO QAM 06/18/20 11/18/21 History metoprolol succinate 25 mg 12.5 mg PO DAILY 06/18/20 11/18/21 History tablet,extended release 24 hr ascorbic acid (vitamin C) 250 mg 1,000 mg PO DAILY 09/29/20 11/18/21 History tablet ferrous sulfate 325 mg (65 mg 325 mg PO BID 09/29/20 11/18/21 History iron) tablet (Iron (ferrous sulfate)) aspirin 325 mg tablet,delayed 325 mg PO DAILY #1 tablet 01/08/21 11/18/21 Rx release evening primrose oil 500 mg capsule 1,000 mg PO DAILY 05/18/21 11/18/21 History lactobacillus combination no.4 3 3,000 mmu cells PO DAILY 05/18/21 11/18/21 History billion cell capsule (Probiotic) metformin 1,000 mg tablet 1,000 mg PO BID #90 tabs 06/22/21 11/18/21 Rx losartan 25 mg tablet 25 mg PO DAILY #90 tabs 07/01/21 11/18/21 Rx lancets 33 gauge (OneTouch Delica #100 ea 08/25/21 10/27/21 Rx Plus Lancet) pantoprazole 40 mg tablet,delayed 40 mg PO QAM #90 tabs 10/18/21 11/18/21 Rx release multivitamin with minerals-folic 1 tablet PO DAILY 11/02/21 11/18/21 History acid 0.4 mg tablet omega 5-rpe-opn-fish oil 1,000 mg 1 cap PO DAILY 11/02/21 11/18/21 History (120 mg-180 mg) capsule (Fish Oil) ondansetron 4 mg disintegrating 4 mg PO Q8H PRN nausea and 11/11/21 11/18/21 Rx tablet vomiting #20 tabs Patient hx anesthesia problems: none Family hx anesthesia problems: none Results Review: All pre-operative results and documents have been reviewed as part of the pre-operative evaluation. [facility] Past Medical History Medical History A-fib Anemia Arthritis CAD (coronary artery disease) Cataracts, bilateral CVA (cerebral vascular accident) DDD (degenerative disc disease) DM (diabetes mellitus) GERD (gastroesophageal reflux disease) History of colonic polyps History of GI bleed History of heart attack History of melena History of rectal polyps Hx of breast cancer Chemotherapy and radiation and mastectomy Hypercholesteremia Hypertension Obesity Shingles TIA (transient ischemic attack) Surgical History Surgical History History of cholecystectomy History of dilation and curettage History of mastectomy Left breast History of removal of cyst from finger Hx of bilateral cataract extraction Hx of cardiac cath with stent placement Hx of tubal ligation S/P ablation of atrial fibrillation Family History Family History Sibling Family history of malignant neoplasm of ovary, Onset Age: 60 Mother Hypertension Heart disease Cerebrovascular accident Father Drowning, accidental Other Family history of malignant neoplasm Social History Social History Social History: The patient has 4 children. She is retired from [employer]. Lifelong nonsmoker. She does not use any alcohol marijuana or illicit drugs. She lives with her who is the durable power employment attorney for healthcare. The patient desires to be a full code. Smoking status: Never sm
[2021-11-18 10:10] VITALS: BP 131/62; PULSE 74; RESP 18; TEMP 36.6; O2SAT 98
[2021-11-18 10:10] LABS: Glucose Point of Care 128 mg/dl (65-105)
[2021-11-18] MEDS: LACTATED RINGERS 1,000 ML 150 ML IV CONT (10:13)
--- NOTE | 2021-11-18 10:43 | PM.IMHP ---
H&P: HPI History of Present Illness Date/Time: 11/18/21 10:43 Chief Complaint: History of gastric polyps. Narrative: This is a 76-year-old white female patient presents for follow-up EGD. One year ago had GI bleeding attributed to large gastric polyps. At that time she was on anticoagulation that has subsequently been discontinued. Patient was found to have large polyps histology consistent with hyperplastic polyps. These appeared to be the etiology for blood loss at that time. Because of the large size and bleeding nature of these polyps she presents today for follow-up examination as she may require additional resection. Family history is noncontributory. Patient denies any abdominal pain. She has had no additional bleeding over the last year. Her weight remains stable. Review of Systems Review of Systems: Review of systems noncontributory. [facility] Past Medical History Medical History A-fib Anemia Arthritis CAD (coronary artery disease) Cataracts, bilateral CVA (cerebral vascular accident) DDD (degenerative disc disease) DM (diabetes mellitus) GERD (gastroesophageal reflux disease) History of colonic polyps History of GI bleed History of heart attack History of melena History of rectal polyps Hx of breast cancer Chemotherapy and radiation and mastectomy Hypercholesteremia Hypertension Obesity Shingles TIA (transient ischemic attack) Surgical History Surgical History History of cholecystectomy History of dilation and curettage History of mastectomy Left breast History of removal of cyst from finger Hx of bilateral cataract extraction Hx of cardiac cath with stent placement Hx of tubal ligation S/P ablation of atrial fibrillation Family History Family History Sibling Family history of malignant neoplasm of ovary, Onset Age: 60 Mother Hypertension Heart disease Cerebrovascular accident Father Drowning, accidental Other Family history of malignant neoplasm Social History Social History Social History: The patient has 4 children. She is retired from [employer]. Lifelong nonsmoker. She does not use any alcohol marijuana or illicit drugs. She lives with her who is the durable power trust and estates attorney for healthcare. The patient desires to be a full code. Smoking status: Never smoker Second hand tobacco smoke exposure: No Alcohol intake: never Substance use: never Substance use type: does not use Living arrangements: with family Gender identity (if verbalized by the patient): Female Sexual Orientation (if Verbalized by the Patient): Straight or Heterosexual Spiritual care concerns: No Meds Home Medications and Allergies Home Medications Medication Instructions Recorded Confirmed Type CoQ-10 200 mg PO DAILY 04/30/19 11/18/21 History Daily Fiber 2 tablet PO BID 04/30/19 11/18/21 History atorvastatin 40 mg tablet 40 mg PO HS 04/30/19 11/18/21 History sotalol 120 mg tablet 120 mg PO BID 04/30/19 11/18/21 History tamoxifen 20 mg tablet 20 mg PO HS 04/30/19 11/18/21 History furosemide 20 mg tablet 20 mg PO QAM 06/18/20 11/18/21 History metoprolol succinate 25 mg 12.5 mg PO DAILY 06/18/20 11/18/21 History tablet,extended release 24 hr ascorbic acid (vitamin C) 250 mg 1,000 mg PO DAILY 09/29/20 11/18/21 History tablet ferrous sulfate 325 mg (65 mg 325 mg PO BID 09/29/20 11/18/21 History iron) tablet (Iron (ferrous sulfate)) aspirin 325 mg tablet,delayed 325 mg PO DAILY #1 tablet 01/08/21 11/18/21 Rx release evening primrose oil 500 mg capsule 1,000 mg PO DAILY 05/18/21 11/18/21 History lactobacillus combination no.4 3 3,000 mmu cells PO DAILY 05/18/21 11/18/21 History billion cell capsule (Probiotic) metformin 1,000 mg tablet 1,
--- NOTE | 2021-11-18 11:06 | SUR.OPER ---
RETRIEVED 2 OF 3 GASTRIC POL[address] THAT WERE REMOV[address] DR HUANG MADE AWARE. NO NEW ORDERS AT THIS TIME.
[2021-11-18 11:09] VITALS: BP 92/38; PULSE 75; RESP 18; O2SAT 97
[2021-11-18 11:19] VITALS: BP 98/46; PULSE 75; RESP 18; O2SAT 97
[2021-11-18 11:29] VITALS: BP 100/52; PULSE 74; RESP 20; O2SAT 98
== END 2021-11-18 11:33 | disposition home or self-care (01) ==
PROVIDERS: PCP Internal Medicine; Visit Provider Internal Medicine Gastroenterology
PROC: 0DJ08ZZ Inspection of Upper Intestinal Tract, Via Natural or Artificial Opening Endoscopic (ICD-10-PCS; CPT 43235; principal; 2021-11-18 10:45)
DX: K31.7 Polyp of stomach and duodenum (principal); D64.9 Anemia, unspecified; I25.10 Atherosclerotic heart disease of native coronary artery without angina pectoris; K21.9 Gastro-esophageal reflux disease without esophagitis; I25.2 Old myocardial infarction; I10 Essential (primary) hypertension; E78.00 Pure hypercholesterolemia, unspecified; Z95.5 Presence of coronary angioplasty implant and graft; Z79.82 Long term (current) use of aspirin; Z79.810 Long term (current) use of selective estrogen receptor modulators (SERMs); Z79.84 Long term (current) use of oral hypoglycemic drugs; Z85.3 Personal history of malignant neoplasm of breast; Z86.73 Personal history of transient ischemic attack (TIA), and cerebral infarction without residual deficits; Z92.3 Personal history of irradiation
CPT/HCPCS: 43251; 82948; 88305; J2704; J7120

== ENCOUNTER 2022-01-09 23:21 | Inpatient (IN) | payer MEDICARE, SELFPAY ==
--- NOTE | ~2022-01-09 | XR_ITS ---
EXAMINATION: XR chest 2V DATE: 01/10/2022 00:40 INDICATION: Chest pain. Atrial fibrillation. TECHNIQUE: Frontal and lateral views of the chest were obtained. COMPARISON: Chest 2 views 04/30/2019, chest CT 03/04/2016 FINDINGS: A calcified left lung nodule and calcified left hilar lymph nodes are consistent with old g ranulomatous disease. There is no pneumonia, pleural effusion, or pneumothorax. The heart size is nor mal. There are surgical clips in left axilla. IMPRESSION: 1. No acute cardiopulmonary disease. Reviewed, dictated and finalized at location A.
--- NOTE | 2022-01-09 23:29 | ECG_ITS ---
Measurements Intervals [place] Rate: 138 P: GA: 0 QRS: -61 QRSD: 69 T: 20 QT: 297 QTc: 451 Interpretive Statements ATRIAL FIBRILLATION WITH RAPID VENTRICULAR RESPONSE LOW QRS VOLTAGE IN PRECORDIAL LEADS [QRS DEFLECTION < 1.0 mV IN CHEST LEADS] POOR R-WAVE PROGRESSION NONSPECIFIC T-WAVE ABNORMALITY COMPARED TO ECG 10/05/2021 13:39:53 ATRIAL FIBRILLATION REPLACES SINUS RHYTHM Electronically Signed On 01-10-2022 14:20:24 CDT by Julian Mallory M.D.
[2022-01-09 23:31] VITALS: BP 118/72; PULSE 140; RESP 18; TEMP 36.7; O2SAT 98
[2022-01-10] VITALS (31 sets, daily range): BP systolic 83–136; BP diastolic 40–75; PULSE 77–134; RESP 12–23; TEMP 36.1–36.7; O2SAT 91–100; BMI 28.5
--- NOTE | 2022-01-10 00:09 | ED.ARRPALP ---
HPI - Arrhythmia/Palpitations General Chief Complaint: Arrhythmia/Palpitations Stated Complaint: A-Fib, tightness in chest Time Seen by Provider: 01/09/22 23:52 History of Present Illness HPI narrative: 76-year-old female with history of paroxysmal atrial fibrillation presenting to the emergency department for evaluation of abnormal heart rate that started at noon today. Patient did take her sotalol this evening. Patient had an episode of proximal A. fib approximately 2 weeks ago. Patient had follow-up with her channel marketing manager the next day but was back in normal sinus rhythm. Patient does have a history of ablation and does have a pacemaker in place. Rug Receiving Clerk is Dr Moses. Related Data Home Medications Medication Instructions Recorded Confirmed CoQ-10 200 mg PO DAILY 04/30/19 01/10/22 Daily Fiber 2 tablet PO BID 04/30/19 01/10/22 atorvastatin 40 mg tablet 40 mg PO HS 04/30/19 01/10/22 sotalol 120 mg tablet 120 mg PO BID 04/30/19 01/10/22 tamoxifen 20 mg tablet 20 mg PO HS 04/30/19 01/10/22 furosemide 20 mg tablet 20 mg PO QAM 06/18/20 01/10/22 metoprolol succinate 25 mg 12.5 mg PO DAILY 06/18/20 01/10/22 tablet,extended release 24 hr ascorbic acid (vitamin C) 250 mg 1,000 mg PO DAILY 09/29/20 01/10/22 tablet ferrous sulfate 325 mg (65 mg 325 mg PO BID 09/29/20 01/10/22 iron) tablet (Iron (ferrous sulfate)) evening primrose oil 500 mg capsule 1,000 mg PO DAILY 05/18/21 01/10/22 lactobacillus combination no.4 3 3,000 mmu cells PO DAILY 05/18/21 01/10/22 billion cell capsule (Probiotic) multivitamin with minerals-folic 1 tablet PO DAILY 11/02/21 01/10/22 acid 0.4 mg tablet omega 5-hqb-nus-fish oil 1,000 mg 1 cap PO DAILY 11/02/21 01/10/22 (120 mg-180 mg) capsule (Fish Oil) semaglutide 3 mg tablet (Rybelsus) 3 mg PO DAILY 01/10/22 01/10/22 Allergies Allergy/AdvReac Type Severity Reaction Status Date / Time No Known Allergies Allergy Verified 01/09/22 23:30 Review of Systems Review of Systems: CONSTITUTIONAL: Denies fever, chills, or sweats. EYES: Denies visual changes, redness, or discharge. ENT: Denies rhinorrhea, congestion, sore throat, or otalgia. CARDIOVASCULAR: See HPI. RESPIRATORY: Denies cough or dyspnea. GASTROINTESTINAL: Denies abdominal pain, nausea, vomiting, or diarrhea. GENITOURINARY: Denies dysuria or hematuria. SKIN: Denies rash or itching. MUSCULOSKELETAL: Denies back pain, joint pain, or myalgia. NEUROLOGIC: Denies headache, numbness, or weakness. [facility] Past Medical History Medical History (Updated 01/10/22 @ 03:42 by Joan Cisneros DO) Arthritis BPPV (benign paroxysmal positional vertigo) CAD (coronary artery disease) CVA (cerebral vascular accident) DDD (degenerative disc disease) Diastolic dysfunction Echocardiogram 11/2021: Borderline left ventricular hypertrophy, overall good systolic function with EF of 63%, small area of the basal inferior wall hypokinesis, borderline global longitudinal strain, diastolic dysfunction, moderate left atrial enlargement, mild pulmonary hypertension DM (diabetes mellitus) Dyslipidemia Gastric polyps GERD (gastroesophageal reflux disease) Hiatal hernia History of colon polyps History of GI bleed History of heart attack Hx of breast cancer Stage II breast cancer with 1 positive lymph node status post chemotherapy and radiation Hypertension Hypovitaminosis D Obesity Paroxysmal atrial fibrillation Shingles Thrombocytopenia TIA (transient ischemic attack) Surgical History Surgical History (Updated 01/10/22 @ 03:42 by Joan Cisneros DO) History of cholecystectomy History of colonoscopy with polypectomy Most recent September 2020 History of dilation and curettage History of esophagogastroduodenoscopy (EGD) Most recent EGD 11/18/2021 demonstrated multiple gastric polyps several of which were removed. History of mastectomy (11/2011) Left breast History of removal of cyst from finger Hx of bilateral cataract extraction Hx of
[2022-01-10 00:10] LABS: Basophils Absolute Auto 0.1 K/mm3 (0.0-0.1); Basophils Percent Auto 0.4 % (0.2-1.2); Eosinophils Absolute Auto 0.1 K/mm3 (0-0.3); Eosinophils Percent Auto 0.5 % (0-4.4); Hematocrit 39.1 % (37.0-47.0); Hemoglobin 12.4 g/dL (12.0-15.0); Immature Granulocyte Absolute 0.03 K/mm3 (0.00-0.031); Immature Granulocyte Percent A 0.2 % (0-0.5); Lymphocytes Absolute Auto 2.19 K/mm3 (0.9-3.2); Lymphocytes Percent Auto 17.2 % (18.3-44.2); Mean Corpuscular HGB Conc 31.7 g/dl (32-36); Mean Corpuscular Hemoglobin 27.8 pg (26-34); Mean Corpuscular Volume 87.7 fl (80-100); Mean Platelet Volume 12.5 fl (7.4-10.4); Monocytes Absolute Auto 0.9 K/mm3 (0.1-0.6); Monocytes Percent Auto 6.7 % (2.6-8.5); Neutrophils Absolute Auto 9.6 K/mm3 (1.3-6.7); Platelet Count Result 121 k/mm3 (150-375); Red Blood Count 4.46 M/mm3 (4.2-5.4); White Blood Count 12.8 K/mm3 (4.5-10.0)
[2022-01-10 00:22] LABS: INR 1.2; Prothrombin Time 14.4 Seconds (11.1-14.7)
[2022-01-10 00:23] LABS: Partial Thromboplastin Time 30.8 SECONDS (22.3-36.8)
[2022-01-10 00:26] LABS: Alanine Aminotransferase 16 U/L (6-35); Albumin Level 3.9 g/dL (3.5-5.1); Alkaline Phosphatase 69 U/L (38-126); Anion Gap 10 mmol/L (8-16); Aspartate Amino Transferase 27 U/L (14-36); Bilirubin,Total 0.5 mg/dL (0.2-1.3); Blood Urea Nitrogen 9 mg/dL (7-17); Calcium 8.6 mg/dL (8.4-10.2); Carbon Dioxide 28 mmol/L (22-30); Chloride 99 mmol/L (98-107); Estimated CRCL calculation 62 ml/min; Estimated Glomerular Filt Rate > 60; Glucose 142 mg/dL (65-110); Lipase 65 U/L (23-300); Potassium 3.8 mmol/L (3.4-5.0); Sodium 137 mmol/L (137-145)
[2022-01-10 00:35] LABS: Troponin I < 0.012 ng/mL (0.000-0.034)
[2022-01-10] MEDS: dilTIAZem 100 MG/100 ML 100 MG/100 ML BAG IV CONT (00:38)
[2022-01-10] MEDS: dilTIAZem HCl INJ 25 MG/5 ML VIAL 10 MG IV PUSH (00:38)
--- NOTE | 2022-01-10 00:51 | ECG_ITS ---
Measurements Intervals [place] Rate: 90 P: PA: 0 QRS: -54 QRSD: 78 T: 29 QT: 372 QTc: 456 Interpretive Statements ATRIAL FIBRILLATION LOW QRS VOLTAGE AND POOR R-WAVE PROGRESSION COMPARED TO ECG 01/09/2022 23:44:19 HEART RATE IS MORE CONTROLLED Electronically Signed On 01-10-2022 14:20:52 CDT by Julian Mallory M.D.
--- NOTE | 2022-01-10 02:40 | ADMGEN ---
This patient, Jackie Waddell, was admitted to IMU Room 200-01. Patient/family oriented to hospital policies and general routines including ID bracelet, bed and alarms, visiting hours, pain management, procedures, bathroom and other care routines, personal items, smoking policy, room service/diet, and visiting hours. Information on how to activate the Rapid Response Team has been discussed. Patient/Family are encouraged to report perceived risks to care and to ask questions if they do not understand what they are told or what they should do.
[2022-01-10 03:11] LABS: Troponin I < 0.012 ng/mL (0.000-0.034)
--- NOTE | 2022-01-10 03:24 | PM.IMHP ---
H&P: HPI History of Present Illness Date/Time: 01/10/22 03:24 Chief Complaint: Chest tightness, rapid heart rate Narrative: 76-year-old female with a past medical history of hyperlipidemia, hypertension, diabetes, GERD and atrial fibrillation who presented to the ER with recurrent AFib. She reports that she noticed her weight was in the 140s. A lot of times if she goes into AFib if she waits long enough she will flip back out of AFib. She reports she has not actually been in AFib since she saw her director external communications who did her Watchman procedure in November. She waited until around 11:30 p.m. before she presented to the ER. She came in at that time because her heart rate was getting up into the 140s and was not improving. She denied any chest pain but felt some increased discomfort with the heart rate. Reports that she has been compliant with her home sotalol. Her last dose was at 11:00 p.m.. She did have an associated ache that would radiate up the back for neck into her head. She took 1 g of Tylenol at 10:00 p.m. at home which helped with her headache. She had some associated increased fatigue with onset of her AFib and just did not feel well. She denies any nausea, diaphoresis or central chest discomfort. She denies any cough or congestion. She reports that she was slowly ambulating around the mall doing some shopping last . She reported that time that she developed some pleuritic chest pain that was worse with deep breathing. This lasted a couple of hours before resolving. She denied any associated cough or congestion. She has not had any fevers or chills. She has not had a recurrence of the similar pain. Review of Systems Review of Systems: 12 systems were reviewed with pertinent positives and negatives per HPI. Except as documented in the HPI, all other systems were reviewed and are negative. [facility] Past Medical History Medical History (Updated 01/10/22 @ 03:42 by Joan Cisneros DO) Arthritis BPPV (benign paroxysmal positional vertigo) CAD (coronary artery disease) CVA (cerebral vascular accident) DDD (degenerative disc disease) Diastolic dysfunction Echocardiogram 11/2021: Borderline left ventricular hypertrophy, overall good systolic function with EF of 63%, small area of the basal inferior wall hypokinesis, borderline global longitudinal strain, diastolic dysfunction, moderate left atrial enlargement, mild pulmonary hypertension DM (diabetes mellitus) Dyslipidemia Gastric polyps GERD (gastroesophageal reflux disease) Hiatal hernia History of colon polyps History of GI bleed History of heart attack Hx of breast cancer Stage II breast cancer with 1 positive lymph node status post chemotherapy and radiation Hypertension Hypovitaminosis D Obesity Paroxysmal atrial fibrillation Shingles Thrombocytopenia TIA (transient ischemic attack) Surgical History Surgical History (Updated 01/10/22 @ 03:42 by Joan Cisneros DO) History of cholecystectomy History of colonoscopy with polypectomy Most recent September 2020 History of dilation and curettage History of esophagogastroduodenoscopy (EGD) Most recent EGD 11/18/2021 demonstrated multiple gastric polyps several of which were removed. History of mastectomy (11/2011) Left breast History of removal of cyst from finger Hx of bilateral cataract extraction Hx of cardiac cath with stent placement Hx of tubal ligation Presence of Watchman left atrial appendage closure device S/P ablation of atrial fibrillation Family History Family History Sibling Family history of malignant neoplasm of ovary, Onset Age: 60 Mother Hypertension Heart disease Cerebrovascular accident Father Drowning, accidental Other Family history of malignant neoplasm Social History Social History Social History: The patient has 4 children. She is retired from [employer]
[2022-01-10 05:48] LABS: Troponin I < 0.012 ng/mL (0.000-0.034)
[2022-01-10 09:09] LABS: Glucose Point of Care 106 mg/dl (65-105)
[2022-01-10] MEDS: FERROUS SULFATE 324 MG TABLET PO ×2 (09:44→16:58)
[2022-01-10] MEDS: metFORMIN HCL 500 MG TABLET 1000 MG PO ×2 (09:44→16:58)
[2022-01-10] MEDS: ASPIRIN 325 MG ENTERIC TABLET PO (09:44)
[2022-01-10] MEDS: OMEGA 3 POLYUNSAT FATTY ACIDS 1 GM CAP PO (09:44)
[2022-01-10] MEDS: FUROSEMIDE 20 MG TABLET PO (09:44)
[2022-01-10] MEDS: PANTOPRAZOLE 40 MG TABLET PO (09:45)
[2022-01-10] MEDS: THERAPEUTIC MULTIVITAMINS/MINERALS TAB (*BKC) 1 TABLET PO (09:45)
[2022-01-10] MEDS: SOTALOL HCL 40 MG TABLET PO ×2 (09:45→20:09)
[2022-01-10] MEDS: SOTALOL HCL 80 MG TABLET PO ×2 (09:45→20:09)
--- NOTE | 2022-01-10 12:42 | PM.CNCAR ---
Assessment and Plan Assessment and plan (1) Atrial fibrillation with rapid ventricular response: Code(s): I48.91 - Unspecified atrial fibrillation Status: Acute Plan This is a 76-year-old lady with a long history of paroxysmal atrial fibrillation being cold managed by my partner, Dr. Moses as well as electrophysiology done at [place]. She has had a recurrence of her atrial fib yesterday that persists. She came into the hospital not because she is particularly concerned about being in atrial fib but she thought her heart rate was not well controlled. She is on a increased dose of sotalol to maintain sinus rhythm as well as a very slow dose of metoprolol. My impression would be the simplest maneuver would be to advance her metoprolol dosage to try to provide better heart rate control and then she can follow up with her continuous still operator at [place]. Performing a repeated cardioversion on her here would probably be of limited benefit. Of course she does not require systemic anticoagulation as she has had mechanical left atrial appendage occlusion performed Julian Mallory MD [facility] History of Present Illness History of Present Illness Consult date/time: 01/10/22 12:42 Consult reason: atrial fibrillation Reason For Visit: afib rvr Narrative: This is a 76-year-old woman who is being seen at the request of the hospitalist F she was admitted be seen in the emergency room last evening because of AFib with RVR. The patient is very comfortable at this time and has no other complaints. The patient is longstanding under the care of Dr. Moses of our practice as well as 1 of the continuous still operator down at [place] for management of her arrhythmia. She states she has a history of a intermittent atrial fibrillation for about 10 years. Over the years she has undergone several cardioversion procedures and she thinks about a year and a half ago underwent an ablation procedure down at [place]. She does have a history of significant GI bleeding and she states that at the time of her ablation she also had a Watchman procedure done at [place]. She has not been in atrial fibrillation since that procedure until yesterday. She says that every time she goes in atrial fibrillation she consents it almost immediately with the onset of palpitations in the sense of irregularity of her pulse. She noticed this yesterday. At times she will go in atrial fibrillation if she goes home and relaxes it will settle back down into sinus rhythm after a short time I yesterday that did not happen so she came into the emergency room for evaluation. She has been maintained on a higher dose of sotalol at 120 mg q.12 hours as well as a modest dose of metoprolol at 12.5 mg daily. Obviously since she has the Watchman procedure she is not on anticoagulant. She does have the comorbidities of hypertension non insulin-dependent diabetes as well. Patient states that during her last appointment with her continuous still operator couple of months ago it was determined that she might require advancing her medical regimen monitor or possibly a 2nd ablation procedure if she keeps having breakthrough episodes of atrial fib. The principal reason she came to this hospital was because the heart rate was a concern to her last evening. She also has a history of coronary artery disease having had a stent procedure in her left anterior descending about 3 years ago to the best of her recollection she has not had any ischemic symptoms since that intervention. Review of Systems Constitutional: Constitutional: Reports no additional constitutional complaints Eyes: Eyes: Reports no additional eye complaints ENT: Reports system reviewed and no additional complaints, except as documented Cardiovascular: Cardiovascular: Reports palpitations Respiratory: Respiratory: Reports no additional respiratory complaints Gastrointestinal: Gastrointestinal: Reports no additional gastrointestinal complaints Musculo
[2022-01-10 12:48] LABS: Glucose Point of Care 116 mg/dl (65-105)
[2022-01-10] MEDS: METOPROLOL SUCCINATE EXT REL 25 MG TABCR PO (16:58)
--- NOTE | 2022-01-10 16:58 | PM.IMPN ---
Progress Note: A&P Assessment and Plan (1) Atrial fibrillation with rapid ventricular response: Code(s): I48.91 - Unspecified atrial fibrillation Status: Acute Assessment and Plan: Longstanding history of paroxysmal atrial fibrillation status post Watchman procedure no need for anticoagulation is presenting with continued AFib, she does see electrophysiology Eugenia and sees Dr. Moses for general cardiology. Cardiology plans to increase her metoprolol dose and have her follow-up with her PP doc and discharge. (2) Dyslipidemia: Code(s): E78.5 - Hyperlipidemia, unspecified Status: Acute Assessment and Plan: Will continue patient's home atorvastatin and fish oil. Coenzyme Q10 is on hold as this is a supplement is not available. (3) DM (diabetes mellitus): Qualifiers: Diabetes mellitus complication status: with hyperglycemia Diabetes mellitus lobsterman insulin use: without lobsterman use Diabetes mellitus type: type 2 Qualified Code(s): E11.65 - Type 2 diabetes mellitus with hyperglycemia Code(s): E11.9 - Type 2 diabetes mellitus without complications Status: Acute Assessment and Plan: Will continue patient's home metformin will add Accu-Cheks and sliding scale insulin as well as hypoglycemia protocol as needed. 01/10: Blood glucose controlled, consistently under 200 here Subjective Date/time seen: 01/10/22 16:58 Interval history: Patient resting comfortably without any complaints. No overnight events noted. No chest pain or shortness of breath. No nausea, vomiting or diarrhea. No fevers or chills. Review of Systems Review of Systems: 12 point review of systems was assessed and was negative except as noted in the HPI Exam Narrative: General: No acute distress, alert and oriented per baseline HEENT: Atraumatic, normocephalic, mucous membranes moist CV: Irregularly irregular, S1-S2 Lungs: Clear to auscultation bilaterally, no rales or crackles noted, no wheezes, good air entry Abdomen: Soft, nontender, nondistended Extremities: Normal to inspection Skin: No rashes noted, no lesions or wounds seen Psych: Euthymic, normal affect Objective Data Vital Signs Vital Signs: Vital Signs - 24 hr 01/09/22 23:31 01/10/22 00:38 01/10/22 00:02 Temperature 98.0 F Pulse Rate 140 H 120 H 133 H Respiratory Rate 18 13 Blood Pressure 118/72 123/75 Pulse Oximetry 98 96 Oxygen Delivery Room Air 01/10/22 00:17 01/10/22 00:42 01/10/22 00:47 Temperature Pulse Rate 130 H 80 89 Respiratory Rate 23 H 12 Blood Pressure Pulse Oximetry 96 98 98 Oxygen Delivery 01/10/22 01:02 01/10/22 01:25 01/10/22 01:30 Temperature Pulse Rate 77 81 88 Respiratory Rate 12 16 17 Blood Pressure Pulse Oximetry 96 96 94 Oxygen Delivery 01/10/22 01:31 01/10/22 01:32 01/10/22 01:53 Temperature Pulse Rate 81 94 93 Respiratory Rate 21 H 16 19 Blood Pressure 102/63 Pulse Oximetry 96 97 97 Oxygen Delivery 01/10/22 02:00 01/10/22 02:01 01/10/22 02:03 Temperature Pulse Rate 86 89 101 H Respiratory Rate 13 12 18 Blood Pressure 97/60 L Pulse Oximetry 97 96 97 Oxygen Delivery 01/10/22 02:40 01/10/22 03:00 01/10/22 04:00 Temperature 98.1 F Pulse Rate 84 84 112 H Respiratory Rate 18 18 Blood Pressure 114/72 Pulse Oximetry 97 100 Oxygen Delivery Room Air 01/10/22 04:00 01/10/22 04:00 01/10/22 06:00 Temperature Pulse Rate 114 H 112 H 92 Respiratory Rate 18 Blood Pressure Pulse Oximetry 100 Oxygen Delivery Room Air 01/10/22 08:40 01/10/22 08:00 01/10/22 08:00 Temperature 97.0 F L Pulse Rate 107 H 89 Respiratory Rate 16 Blood Pressure 83/40 L Pulse Oximetry 91 97 Oxygen Delivery Room Air Room Air 01/10/22 09:45 01/10/22 09:45 01/10/22 08:00 Temperature Pulse Rate 109 H 109 H 90 Respiratory Rate Blood Pressure Pulse Oximetry Oxygen Delivery
[2022-01-10 17:32] LABS: Glucose Point of Care 115 mg/dl (65-105)
[2022-01-10] MEDS: ATORVASTATIN 40 MG TABLET PO (20:08)
[2022-01-10] MEDS: TAMOXIFEN CITRATE (*CHEMO) 10 MG TABLET 20 MG PO (20:10)
[2022-01-10 20:41] LABS: Glucose Point of Care 147 mg/dl (65-105)
[2022-01-11] VITALS (21 sets, daily range): BP systolic 93–117; BP diastolic 62–78; PULSE 99–150; RESP 18–20; TEMP 35.6–36.4; O2SAT 93–99
[2022-01-11 08:01] LABS: Glucose Point of Care 109 mg/dl (65-105)
[2022-01-11] MEDS: OMEGA 3 POLYUNSAT FATTY ACIDS 1 GM CAP PO (08:03)
[2022-01-11] MEDS: FERROUS SULFATE 324 MG TABLET PO ×2 (08:03→17:11)
[2022-01-11] MEDS: ASPIRIN 325 MG ENTERIC TABLET PO (08:03)
[2022-01-11] MEDS: metFORMIN HCL 500 MG TABLET 1000 MG PO ×2 (08:03→17:11)
[2022-01-11] MEDS: SOTALOL HCL 80 MG TABLET PO ×2 (08:03→20:46)
[2022-01-11] MEDS: PANTOPRAZOLE 40 MG TABLET PO (08:04)
[2022-01-11] MEDS: FUROSEMIDE 20 MG TABLET PO (08:04)
[2022-01-11] MEDS: THERAPEUTIC MULTIVITAMINS/MINERALS TAB (*BKC) 1 TABLET PO (08:04)
[2022-01-11] MEDS: SOTALOL HCL 40 MG TABLET PO ×2 (08:04→20:46)
--- NOTE | 2022-01-11 08:06 | PM.PNCARD ---
Progress Note: A&P Assessment and Plan (1) Atrial fibrillation with rapid ventricular response: Code(s): I48.91 - Unspecified atrial fibrillation Status: Acute Assessment and Plan: History of paroxysmal atrial fibrillation with recent recurrence. Her atrial fibrillation is being managed with sotalol and low dose metoprolol as an outpatient. Yesterday her metoprolol dosage was increased in order to provide better rate control. Remains not adequately rate controlled with rate in the 110-130 range. Some KRISHNAN but otherwise asymptomatic. Shift metoprolol from succinate to tartrate and increase dose to 25mg q12h Does not require systemic anticoagulation as she has had a LAAO If unable to achieve adequate rate control, could consider cardioversion OK to downgrade from IMU to med tele BMP in the morning Subjective Date/time seen: 01/11/22 08:06 cardiology follow-up for atrial fibrillation Feels okay in general but is very fatigued. Does not feel any palpitations. No chest pain or shortness of breath at rest but does become dyspneic with little activity. Review of Systems Constitutional: Constitutional: Reports no additional constitutional complaints Eyes: Eyes: Reports no additional eye complaints ENT: Reports system reviewed and no additional complaints, except as documented Cardiovascular: Cardiovascular: Reports palpitations Respiratory: Respiratory: Reports no additional respiratory complaints Gastrointestinal: Gastrointestinal: Reports no additional gastrointestinal complaints Musculoskeletal: Musculoskeletal: Reports no additional musculoskeletal complaints Integumentary/Breasts: Skin/Breast: Reports system reviewed and no additional complaints, except as docu Neurologic: Reports system reviewed and no additional complaints, except as documented Endocrine: Endocrine: Reports no additional endocrine complaints and Reports palpitations Hematologic/Lymphatic: Hematologic/Lymphatic: Reports no additional hematologic/lymphatic complaints Allergic/Immunologic: Allergic/Immunologic: Reports no additional allergic/immunologic complaints Exam Const: General: comfortable and no acute distress HENMT: Mouth: Yes moist mucous membranes Eyes: Sclera: sclerae normal Pupils: Equal, round and reactive pupils present Neck: Neck: supple and no JVD Other: Carotid pulses are unremarkable normal in character bilaterally no bruits Resp: Effort & Inspection: normal respiratory effort Auscultation: clear to auscultation bilaterally Cardio: Rhythm: abnormal rhythm irregularly irregular Other: No audible murmur GI: Auscultation: normal bowel sounds Skin: General skin exam: normal color Neuro: Cranial nerves: Yes Equal, round and reactive pupils present Other: Alert and oriented normal mentation Extrem: Other: No edema. Distal pulses intact Psych: Mental Status: mental status grossly normal Objective Data Vital Signs Vital Signs: Vital Signs - 24 hr 01/10/22 08:40 01/10/22 09:45 01/10/22 09:45 Temperature Pulse Rate 107 H 109 H 109 H Respiratory Rate Blood Pressure Pulse Oximetry 91 Oxygen Delivery Room Air 01/10/22 10:00 01/10/22 12:00 01/10/22 12:00 Temperature 36.4 C L Pulse Rate 110 H 104 H 121 H Respiratory Rate 16 Blood Pressure 113/68 Pulse Oximetry 98 Oxygen Delivery 01/10/22 12:00 01/10/22 14:00 01/10/22 16:00 Temperature 36.5 C Pulse Rate 110 H 118 H Respiratory Rate 16 Blood Pressure 108/59 L Pulse Oximetry 97 Oxygen Delivery Room Air 01/10/22 16:58 01/10/22 16:00 01/10/22 16:00 Temperature Pulse Rate 121 H 118 H Respiratory Rate Blood Pressure Pulse Oximetry Oxygen Delivery Room Air 01/10/22 18:00 01/10/22 20:09 01/10/22 20:09 Temperature Pulse Rate 121 H 126 H 126 H Respiratory Rate Blood Pressure Pulse Oximetry Oxygen Delivery 01/10/22 20:00 01/10/22 20:00
[2022-01-11] MEDS: METOPROLOL SUCCINATE EXT REL 25 MG TABCR PO (08:52)
[2022-01-11] MEDS: LOSARTAN POTASSIUM 25 MG TABLET PO (08:52)
--- NOTE | 2022-01-11 12:05 | PC.NURSE ---
This patient, Jackie Waddell, was received from IMU 201 on 01/11/22 at 1205. Patient/family oriented to unit policies and routines
[2022-01-11 12:15] LABS: Glucose Point of Care 194 mg/dl (65-105)
--- NOTE | 2022-01-11 12:48 | PM.IMPN ---
Progress Note: A&P Assessment and Plan (1) Atrial fibrillation with rapid ventricular response: Code(s): I48.91 - Unspecified atrial fibrillation Status: Acute Assessment and Plan: Longstanding history of paroxysmal atrial fibrillation status post Watchman procedure no need for anticoagulation is presenting with continued AFib, she does see electrophysiology Eugenia and sees Dr. Moses for general cardiology. Cardiology plans to increase her metoprolol dose and have her follow-up with her PP doc and discharge. 01/11: Seen by Cardiology today plan is to continue home sotalol and change metoprolol from 25 mg succinate to 25 mg tartrate twice daily (2) Dyslipidemia: Code(s): E78.5 - Hyperlipidemia, unspecified Status: Acute Assessment and Plan: Will continue patient's home atorvastatin and fish oil. Coenzyme Q10 is on hold as this is a supplement is not available. (3) DM (diabetes mellitus): Qualifiers: Diabetes mellitus type: type 2 Diabetes mellitus termite technician insulin use: without termite technician use Diabetes mellitus complication status: with hyperglycemia Qualified Code(s): E11.65 - Type 2 diabetes mellitus with hyperglycemia Code(s): E11.9 - Type 2 diabetes mellitus without complications Status: Acute Assessment and Plan: Will continue patient's home metformin will add Accu-Cheks and sliding scale insulin as well as hypoglycemia protocol as needed. 01/10: Blood glucose controlled, consistently under 200 here 01/11: Controlled Subjective Date/time seen: 01/11/22 12:48 Interval history: Patient resting comfortably watching a cooking show. She denies any complaints. No overnight events noted. No chest pain or shortness of breath. No nausea, vomiting or diarrhea. No fevers or chills. Review of Systems Review of Systems: 12 point review of systems was assessed and was negative except as noted in the HPI Exam Narrative: General: No acute distress, alert and oriented per baseline HEENT: Atraumatic, normocephalic, mucous membranes moist CV: Irregularly irregular, S1-S2 Lungs: Clear to auscultation bilaterally, no rales or crackles noted, no wheezes, good air entry Abdomen: Soft, nontender, nondistended Extremities: Normal to inspection Skin: No rashes noted, no lesions or wounds seen Psych: Euthymic, normal affect Objective Data Vital Signs Vital Signs: Vital Signs - 24 hr 01/10/22 14:00 01/10/22 16:00 01/10/22 16:58 Temperature 97.7 F Pulse Rate 110 H 118 H 121 H Respiratory Rate 16 Blood Pressure 108/59 L Pulse Oximetry 97 Oxygen Delivery 01/10/22 16:00 01/10/22 16:00 01/10/22 18:00 Temperature Pulse Rate 118 H 121 H Respiratory Rate Blood Pressure Pulse Oximetry Oxygen Delivery Room Air 01/10/22 20:09 01/10/22 20:09 01/10/22 20:00 Temperature 97.2 F L Pulse Rate 126 H 126 H 126 H Respiratory Rate 16 Blood Pressure 136/65 Pulse Oximetry 100 Oxygen Delivery 01/10/22 20:00 01/10/22 20:00 01/10/22 22:00 Temperature Pulse Rate 134 H 119 H Respiratory Rate Blood Pressure Pulse Oximetry Oxygen Delivery Room Air 01/10/22 23:39 01/11/22 00:00 01/11/22 00:00 Temperature 97.3 F L Pulse Rate 115 H 117 H Respiratory Rate 16 Blood Pressure 101/57 L Pulse Oximetry 100 Oxygen Delivery Room Air 01/11/22 02:00 01/11/22 04:00 01/11/22 04:00 Temperature 97.3 F L Pulse Rate 118 H 118 H 118 H Respiratory Rate 18 Blood Pressure 93/62 L Pulse Oximetry 97 Oxygen Delivery 01/11/22 04:00 01/11/22 06:00 01/11/22 08:03 Temperature Pulse Rate 115 H 130 H Respiratory Rate Blood Pressure Pulse Oximetry Oxygen Delivery Room Air 01/11/22 08:04 01/11/22 08:15 01/11/22 08:51 Temperature 97.5 F L Pulse Rate 130 H 122 H Respiratory Rate 20 Blood Pressure 103/63 111/75 Pulse Oximetry 99 Oxygen Delivery
[2022-01-11 13:25] LABS: Anion Gap 10 mmol/L (8-16); Blood Urea Nitrogen 12 mg/dL (7-17); Calcium 8.7 mg/dL (8.4-10.2); Carbon Dioxide 30 mmol/L (22-30); Chloride 99 mmol/L (98-107); Estimated CRCL calculation 55 ml/min; Estimated Glomerular Filt Rate > 60; Glucose 147 mg/dL (65-110); Potassium 3.9 mmol/L (3.4-5.0); Sodium 139 mmol/L (137-145)
[2022-01-11 16:17] LABS: Glucose Point of Care 120 mg/dl (65-105)
[2022-01-11] MEDS: ACETAMINOPHEN 500 MG TABLET 1000 MG PO (16:35)
[2022-01-11] MEDS: METOPROLOL TARTRATE 25 MG TABLET PO (20:43)
[2022-01-11] MEDS: TAMOXIFEN CITRATE (*CHEMO) 10 MG TABLET 20 MG PO (20:44)
[2022-01-11] MEDS: ATORVASTATIN 40 MG TABLET PO (20:46)
[2022-01-11 23:47] LABS: Glucose Point of Care 92 mg/dl (65-105)
[2022-01-12] VITALS (13 sets, daily range): BP systolic 89–115; BP diastolic 58–68; PULSE 75–131; RESP 18–19; TEMP 35.9–36.3; O2SAT 95–97
--- NOTE | 2022-01-12 06:50 | PC.NURSE ---
Patient refused ordered heparin injection 01/11/22 @ 2100. Patient was educated about importance of anticoagulant therapy specifically related to her diagnosis of a-fib. Patient verbalized understanding and chose to refuse injection because of a prior history of bleeding.
[2022-01-12 07:32] LABS: Glucose Point of Care 117 mg/dl (65-105)
[2022-01-12 07:42] LABS: Anion Gap 9 mmol/L (8-16); Blood Urea Nitrogen 14 mg/dL (7-17); Calcium 8.9 mg/dL (8.4-10.2); Carbon Dioxide 32 mmol/L (22-30); Chloride 96 mmol/L (98-107); Estimated CRCL calculation 54 ml/min; Estimated Glomerular Filt Rate > 60; Glucose 122 mg/dL (65-110); Potassium 4.1 mmol/L (3.4-5.0); Sodium 137 mmol/L (137-145)
[2022-01-12] MEDS: FERROUS SULFATE 324 MG TABLET PO ×2 (08:08→17:37)
[2022-01-12] MEDS: METOPROLOL TARTRATE 25 MG TABLET PO ×2 (08:08→19:55)
[2022-01-12] MEDS: SOTALOL HCL 40 MG TABLET PO ×2 (08:08→19:56)
[2022-01-12] MEDS: OMEGA 3 POLYUNSAT FATTY ACIDS 1 GM CAP PO (08:08)
[2022-01-12] MEDS: ASPIRIN 325 MG ENTERIC TABLET PO (08:08)
[2022-01-12] MEDS: FUROSEMIDE 20 MG TABLET PO (08:09)
[2022-01-12] MEDS: THERAPEUTIC MULTIVITAMINS/MINERALS TAB (*BKC) 1 TABLET PO (08:09)
[2022-01-12] MEDS: SOTALOL HCL 80 MG TABLET PO ×2 (08:09→19:56)
[2022-01-12] MEDS: metFORMIN HCL 500 MG TABLET 1000 MG PO ×2 (08:09→17:37)
[2022-01-12] MEDS: PANTOPRAZOLE 40 MG TABLET PO (08:09)
[2022-01-12 11:17] LABS: Glucose Point of Care 165 mg/dl (65-105)
--- NOTE | 2022-01-12 12:11 | PM.PNCARD ---
Progress Note: A&P Assessment and Plan (1) Atrial fibrillation with rapid ventricular response: Code(s): I48.91 - Unspecified atrial fibrillation Status: Acute Plan 76-year-old lady with long history of paroxysmal atrial fibrillation she has a persistent recurrence of AFib going on not at this time. She is minimally symptomatic with this with the additional beta-blockade her blood pressure is now marginal. Heart rate is still not well controlled enough to allow discharge. I am going to try some digoxin for that reason. Her renal function is normal. I will give her 0.5 mg orally at this time and assess her response to that. I still believe the best plan is to control the heart rate and have her follow-up in a short interval with her slitter scorer cut off operator for more definitive treatment of this Julian Mallory MD [facility] Subjective Date/time seen: Date of service: 01/12/22 12:11 Interval history: Follow-up visit in this 76-year-old lady with: History of paroxysmal atrial fib admitted with a symptomatic recurrence. Patient has had previous ablation and cardioversions as mentioned in the consult note. Also remote history of coronary artery stenting. She is asymptomatic this morning and other than feeling generally weak has no complaints. Still in atrial fibrillation with heart rates running approximately 120 on telemetry. Patient continues on sotalol as well as increased dose of metoprolol. Exam Const: General: comfortable and no acute distress HENMT: Mouth: Yes moist mucous membranes Eyes: Sclera: sclerae normal Pupils: Equal, round and reactive pupils present Neck: Neck: supple and no JVD Other: Carotid pulses are unremarkable normal in character bilaterally no bruits Resp: Effort & Inspection: normal respiratory effort Auscultation: clear to auscultation bilaterally Cardio: Rhythm: abnormal rhythm irregularly irregular Other: No audible murmur GI: Auscultation: normal bowel sounds Skin: General skin exam: normal color Neuro: Cranial nerves: Yes Equal, round and reactive pupils present Other: Alert and oriented normal mentation Extrem: Other: No edema. Distal pulses intact Psych: Mental Status: mental status grossly normal Objective Data Vital Signs Vital Signs: Vital Signs - 24 hr 01/11/22 14:00 01/11/22 12:15 01/11/22 16:00 Temperature 35.6 C L Pulse Rate 118 H 124 H Respiratory Rate 18 Blood Pressure 110/78 Pulse Oximetry 97 Oxygen Delivery Room Air 08/09/22 20:43 01/11/22 20:46 01/11/22 20:46 Temperature Pulse Rate 120 H 120 H 120 H Respiratory Rate Blood Pressure Pulse Oximetry Oxygen Delivery 01/11/22 22:00 01/11/22 20:00 01/11/22 20:00 Temperature 36.1 C L Pulse Rate 150 H 130 H Respiratory Rate 20 Blood Pressure 105/66 Pulse Oximetry 97 Oxygen Delivery Room Air 01/12/22 00:00 01/11/22 21:42 01/12/22 04:00 Temperature Pulse Rate 124 H 130 H Respiratory Rate Blood Pressure Pulse Oximetry 97 Oxygen Delivery Room Air 01/12/22 06:00 01/12/22 08:04 01/12/22 08:00 Temperature 35.9 C L Pulse Rate 130 H 131 H 121 H Respiratory Rate 19 Blood Pressure 89/68 L 99/59 L Pulse Oximetry 97 Oxygen Delivery Intake/Output Intake/Output: Intake & Output 01/09/22 01/10/22 01/11/22 01/12/22 23:59 23:59 23:59 23:59 Intake Total 760 1270 240 Output Total 1250 600 Balance -490 670 240 Meds/Results Medications: Active Medications Generic Name Dose Route Start Last Admin Trade Name Freq PRN Reason Stop Dose Admin Acetaminophen 1,000 mg 01/10/22 17:33 01/11/22 16:35 Acetaminophen 500 Mg Tablet PO 1,000 mg Q8H PRN Administration Mild Pain (1-3) or Fever Aspirin 325 mg 01/10/22 09:00 01/12/22 08:08 Aspirin 325 Mg Enteric Tablet PO 325 mg DAILY EMILI Administration Atorvastatin Calcium 40 mg 01/10/22 21:00 01/11/22 20:46 Atorvastatin 40 Mg Ta
[2022-01-12] MEDS: DIGOXIN 250 MCG TABLET 500 MCG PO (12:42)
[2022-01-12] MEDS: LOSARTAN POTASSIUM 25 MG TABLET PO (12:43)
--- NOTE | 2022-01-12 13:27 | PM.IMPN ---
Progress Note: A&P Assessment and Plan (1) Atrial fibrillation with rapid ventricular response: Code(s): I48.91 - Unspecified atrial fibrillation Status: Acute Assessment and Plan: Longstanding history of paroxysmal atrial fibrillation status post Watchman procedure no need for anticoagulation is presenting with continued AFib, she does see electrophysiology Eugenia and sees Dr. Moses for general cardiology. cardiology consulted. on Metoprolol 25 mg twice a day along with sotalol 120 mg b.i.d.. added on digoxin for more rate controlled today (2) Dyslipidemia: Code(s): E78.5 - Hyperlipidemia, unspecified Status: Acute Assessment and Plan: Will continue patient's home atorvastatin and fish oil. Coenzyme Q10 is on hold as this is a supplement is not available. (3) DM (diabetes mellitus): Qualifiers: Diabetes mellitus type: type 2 Diabetes mellitus rodent exterminator insulin use: without rodent exterminator use Diabetes mellitus complication status: with hyperglycemia Qualified Code(s): E11.65 - Type 2 diabetes mellitus with hyperglycemia Code(s): E11.9 - Type 2 diabetes mellitus without complications Status: Acute Assessment and Plan: Will continue patient's home metformin will add Accu-Cheks and sliding scale insulin as well as hypoglycemia protocol as needed. Plan coronary artery disease status post stents in the past Diastolic dysfunction Diabetes mellitus type 2 Hyperlipidemia Hypertension Stage II breast cancer status post chemotherapy and radiation Subjective Date/time seen: 01/12/22 13:27 Interval history: 76-year-old female with a past medical history of hyperlipidemia, hypertension, diabetes, GERD and atrial fibrillation who presented to the ER with recurrent AFib.? She reports that she noticed her weight was in the 140s.? A lot of times if she goes into AFib if she waits long enough she will flip back out of AFib.? She reports she has not actually been in AFib since she saw her fur trimming machine operator who did her Watchman procedure in November.? She waited until around 11:30 p.m. before she presented to the ER.? She came in at that time because her heart rate was getting up into the 140s and was not improving.? She denied any chest pain but felt some increased discomfort with the heart rate.? Reports that she has been compliant with her home sotalol.? Her last dose was at 11:00 p.m..? She did have an associated ache that would radiate up the back for neck into her head. She took 1 g of Tylenol at 10:00 p.m. at home which helped with her headache.? She had some associated increased fatigue with onset of her AFib and just did not feel well.? She denies any nausea, diaphoresis or central chest discomfort.? She denies any cough or congestion. She reports that she was slowly ambulating around the mall doing some shopping last .? She reported that time that she developed some pleuritic chest pain that was worse with deep breathing.? This lasted a couple of hours before resolving.? She denied any associated cough or congestion.? She has not had any fevers or chills.? She has not had a recurrence of the similar pain. 01/12/2022 no overnight events. Heart rate with intermittent AFib with RVR cardiology note reviewed no shortness of breath chest pain. Blood pressure borderline. Chest x-ray no acute cardiopulmonary disease. History of coronary arteries disease, had stents in place, chronic diarrhea history of breast cancer in the past status post chemoradiation therapy. Hypertension presented with breakthrough AFib with RVR Review of Systems Review of Systems: All systems reviewed & are unremarkable except as noted in HPI and below Exam Narrative: General: No acute distress, alert and oriented per baseline HEENT: Atraumatic, normocephalic, mucous membranes moist CV: Irregularly irregular, rate control currently, S1-S2 Lungs: Clear to auscultation bilaterally, n
[2022-01-12 16:25] LABS: Glucose Point of Care 92 mg/dl (65-105)
[2022-01-12] MEDS: ATORVASTATIN 40 MG TABLET PO (19:55)
[2022-01-12] MEDS: TAMOXIFEN CITRATE (*CHEMO) 10 MG TABLET 20 MG PO (19:56)
[2022-01-12 20:14] LABS: Glucose Point of Care 116 mg/dl (65-105)
[2022-01-13] VITALS (8 sets, daily range): BP systolic 100–110; BP diastolic 49–59; PULSE 72–75; RESP 14–18; TEMP 36.2–36.3; O2SAT 96–100
[2022-01-13 07:18] LABS: Basophils Percent Auto 0.4 % (0.2-1.2); Eosinophils Absolute Auto 0.1 K/mm3 (0-0.3); Eosinophils Percent Auto 0.6 % (0-4.4); Hemoglobin 11.1 g/dL (12.0-15.0); Immature Granulocyte Absolute 0.04 K/mm3 (0.00-0.031); Immature Granulocyte Percent A 0.4 % (0-0.5); Immature Platelet Fraction Pct 11.3 % (0.9-11.2); Lymphocytes Absolute Auto 2.11 K/mm3 (0.9-3.2); Lymphocytes Percent Auto 23.7 % (18.3-44.2); Mean Corpuscular HGB Conc 31.7 g/dl (32-36); Mean Corpuscular Hemoglobin 27.9 pg (26-34); Mean Corpuscular Volume 87.9 fl (80-100); Mean Platelet Volume 12.7 fl (7.4-10.4); Monocytes Absolute Auto 0.7 K/mm3 (0.1-0.6); Monocytes Percent Auto 7.4 % (2.6-8.5); Neutrophils Percent Auto 67.5 % (45.5-73.1); Platelet Count Result 89 k/mm3 (150-375); Red Blood Count 3.98 M/mm3 (4.2-5.4); Red Cell Distribution Width 11.9 % (11.5-14.5); White Blood Count 8.9 K/mm3 (4.5-10.0)
[2022-01-13 07:34] LABS: Alanine Aminotransferase 13 U/L (6-35); Albumin Level 3.1 g/dL (3.5-5.1); Alkaline Phosphatase 53 U/L (38-126); Anion Gap 7 mmol/L (8-16); Aspartate Amino Transferase 24 U/L (14-36); Bilirubin,Total 0.4 mg/dL (0.2-1.3); Blood Urea Nitrogen 15 mg/dL (7-17); Calcium 8.3 mg/dL (8.4-10.2); Carbon Dioxide 32 mmol/L (22-30); Chloride 97 mmol/L (98-107); Estimated CRCL calculation 63 ml/min; Estimated Glomerular Filt Rate > 60; Glucose 96 mg/dL (65-110); Magnesium 1.1 mg/dL (1.6-2.3); Potassium 3.8 mmol/L (3.4-5.0); Sodium 136 mmol/L (137-145)
[2022-01-13 07:46] LABS: Glucose Point of Care 99 mg/dl (65-105)
[2022-01-13] MEDS: FERROUS SULFATE 324 MG TABLET PO (08:13)
[2022-01-13] MEDS: THERAPEUTIC MULTIVITAMINS/MINERALS TAB (*BKC) 1 TABLET PO (08:14)
[2022-01-13] MEDS: FUROSEMIDE 20 MG TABLET PO (08:14)
[2022-01-13] MEDS: PANTOPRAZOLE 40 MG TABLET PO (08:14)
[2022-01-13] MEDS: ASPIRIN 325 MG ENTERIC TABLET PO (08:14)
[2022-01-13] MEDS: metFORMIN HCL 500 MG TABLET 1000 MG PO (08:14)
[2022-01-13] MEDS: OMEGA 3 POLYUNSAT FATTY ACIDS 1 GM CAP PO (08:14)
[2022-01-13] MEDS: SOTALOL HCL 80 MG TABLET PO (08:15)
[2022-01-13] MEDS: METOPROLOL TARTRATE 25 MG TABLET PO (08:15)
[2022-01-13] MEDS: SOTALOL HCL 40 MG TABLET PO (08:15)
[2022-01-13] MEDS: LOSARTAN POTASSIUM 25 MG TABLET PO (08:20)
[2022-01-13] MEDS: MAGNESIUM SULF 2 GM/WATER 50ML 2 GM/50 ML BAG IVPB (08:20)
--- NOTE | 2022-01-13 08:58 | PM.PNCARD ---
Progress Note: A&P Assessment and Plan (1) Atrial fibrillation with rapid ventricular response: Code(s): I48.91 - Unspecified atrial fibrillation Status: Acute Assessment and Plan: History of paroxysmal atrial fibrillation with recent recurrence. Rate control strategy was being pursued but some hypotension precluded advancing beta blockade. She was given one dose of digoxin yesterday in an attempt to achieve better rate control. It looks like she spontaneously converted back to sinus rhythm prior to the digoxin being given. At this time she remains on sotalol and metoprolol which should be continued on discharge. Since she is back in sinus rhythm I do not plan to continue any digoxin. She should follow up with her assemblyman or woman within a 2 weeks of discharge from the hospital. Subjective Date/time seen: 01/13/22 08:58 Cardiology follow up for atrial fibrillation Back in sinus rhythm as of yesterday morning around 1000. Feeling better today, less sluggish. No shortness of breath, chest pain, palpitations. Review of Systems Constitutional: Constitutional: Reports no additional constitutional complaints Eyes: Eyes: Reports no additional eye complaints ENT: Reports system reviewed and no additional complaints, except as documented Cardiovascular: Cardiovascular: Reports palpitations Respiratory: Respiratory: Reports no additional respiratory complaints Gastrointestinal: Gastrointestinal: Reports no additional gastrointestinal complaints Musculoskeletal: Musculoskeletal: Reports no additional musculoskeletal complaints Integumentary/Breasts: Skin/Breast: Reports system reviewed and no additional complaints, except as docu Neurologic: Reports system reviewed and no additional complaints, except as documented Endocrine: Endocrine: Reports no additional endocrine complaints and Reports palpitations Hematologic/Lymphatic: Hematologic/Lymphatic: Reports no additional hematologic/lymphatic complaints Allergic/Immunologic: Allergic/Immunologic: Reports no additional allergic/immunologic complaints Exam Const: General: comfortable and no acute distress HENMT: Mouth: Yes moist mucous membranes Eyes: Sclera: sclerae normal Pupils: Equal, round and reactive pupils present Neck: Neck: supple and no JVD Carotids: normal carotid upstroke and no bruits Resp: Effort & Inspection: normal respiratory effort Auscultation: clear to auscultation bilaterally Cardio: Rate: regular rate Rhythm: regular rhythm Other: No audible murmur GI: Auscultation: normal bowel sounds Skin: General skin exam: normal color Neuro: Cranial nerves: Yes Equal, round and reactive pupils present Other: Alert and oriented normal mentation Extrem: Other: No edema. Distal pulses intact Psych: Mental Status: mental status grossly normal Objective Data Vital Signs Vital Signs: Vital Signs - 24 hr 01/12/22 12:42 01/12/22 13:48 01/12/22 12:00 Temperature 36.2 C L Pulse Rate 78 79 76 Respiratory Rate 19 Blood Pressure 95/58 L Pulse Oximetry 95 Oxygen Delivery 01/12/22 16:00 01/12/22 19:55 01/12/22 19:56 Temperature Pulse Rate 75 83 83 Respiratory Rate Blood Pressure Pulse Oximetry Oxygen Delivery 01/12/22 19:56 01/12/22 20:00 01/12/22 20:00 Temperature Pulse Rate 83 86 Respiratory Rate Blood Pressure Pulse Oximetry Oxygen Delivery Room Air 01/12/22 22:00 01/13/22 00:00 01/13/22 04:00 Temperature 36.3 C L Pulse Rate 79 73 74 Respiratory Rate 18 Blood Pressure 115/68 Pulse Oximetry 97 Oxygen Delivery 01/13/22 06:00 01/13/22 08:15 01/13/22 08:15 Temperature 36.2 C L Pulse Rate 75 75 75 Respiratory Rate 18 Blood Pressure 100/49 L Pulse Oximetry 96 Oxygen Delivery 01/13/22 08:15 01/13/22 08:20 Temperature Pulse Rate 75 Respiratory Rate Blood Pressure 110/59 L Pulse Oximetry Oxygen Delivery
[2022-01-13 11:31] LABS: Glucose Point of Care 155 mg/dl (65-105)
--- NOTE | 2022-01-13 14:28 | PM.DS ---
DS: Admitting Diagnosis Discharge Date 01/13/22 Admitting Diagnosis AFib with RVR DS: Summary Hospital Course Hospital Course: # atrial fibrillation with rapid ventricular rate: Longstanding history of proximal atrial fibrillation, status post Watchman procedure no need for anticoagulation presented with continued atrial fibrillation. She does see wire brush operator at [place]. And Dr. Moses for general cardiology. Cardiology was consulted during the hospital stay. She is on metoprolol 25 mg twice a day along with sotalol 120 mg b.i.d.. She was given a dose of digoxin on 01/12/2022 due to lowish blood pressure. She converted spontaneously on 01/12/2022 to normal sinus rhythm. She is okay to discharge per Cardiology and should follow up with wire brush operator as an outpatient basis. # hyperlipidemia on atorvastatin feels sore along with Co Q10 # diabetes mellitus type home medication # coronary artery disease status post stents in the past line -to distal since #Hypertension #Stage II breast cancer status post chemotherapy and radiation #DVT prophylaxis heparin subQ #Code status full code Time Spent with Patient Time attestation: Total time spent providing and/or coordinating discharge services: 40 minutes Exam Narrative: General:? No acute distress, alert and oriented per baseline HEENT:? Atraumatic, normocephalic, mucous membranes moist CV:? regular rhythm and rate , S1-S2 Lungs:? Clear to auscultation bilaterally, no rales or crackles noted, no wheezes, good air entry Abdomen:? Soft, nontender, nondistended Extremities:? Normal to inspection Skin:? No rashes noted, no lesions or wounds seen Psych:? Euthymic, normal affect DS: Data Data Completed and Pending Labs on day of discharge: Labs from last 24 hours 01/13/22 01/13/22 01/13/22 11:21 07:35 06:49 WBC RBC Hgb Hct MCV MCH MCHC RDW Plt Count MPV Immature Gran % (Auto) Neut % (Auto) Lymph % (Auto) [place] % (Auto) Eos % (Auto) Baso % (Auto) Lymph # (Auto) [place] # (Auto) Eos # (Auto) Baso # (Auto) Abs Immat Gran (auto) Absolute Neuts (auto) Absolute Nucleated RBC Nucleated RBC % % Immature Plt Fraction Sodium 136 L Potassium 3.8 Chloride 97 L Carbon Dioxide 32 H Anion Gap 7 L BUN 15 Creatinine 0.60 L Estim Creat Clear Calc 63 Estimated GFR > 60 Glucose 96 POC Capillary Glucose 155 H 99 Calcium 8.3 L Magnesium 1.1 L Total Bilirubin 0.4 AST 24 ALT 13 Alkaline Phosphatase 53 Total Protein 6.0 L Albumin 3.1 L 01/13/22 01/12/22 01/12/22 06:49 19:53 16:19 WBC 8.9 RBC 3.98 L Hgb 11.1 L Hct 35.0 L MCV 87.9 MCH 27.9 MCHC 31.7 L RDW 11.9 Plt Count 89 L MPV 12.7 H Immature Gran % (Auto) 0.4 Neut % (Auto) 67.5 Lymph % (Auto) 23.7 Warrick % (Auto) 7.4 Eos % (Auto) 0.6 Baso % (Auto) 0.4 Lymph # (Auto) 2.11 [place] # (Auto) 0.7 H Eos # (Auto) 0.1 Baso # (Auto) 0.0 Abs Immat Gran (auto) 0.04 H Absolute Neuts (auto) 6.0 Absolute Nucleated RBC 0.0 Nucleated RBC % 0.0 % Immature Plt Fraction 11.3 H Sodium Potassium Chloride Carbon Dioxide Anion Gap BUN Creatinine Estim Creat Clear Calc Estimated GFR Glucose POC Capillary Glucose 116 H 92 Calcium Magnesium Total Bilirubin AST ALT Alkaline Phosphatase Total Protein Albumin Imaging Radiologist's impression: ITS Impressions Chest X-Ray 01/10/22 07:53 IMPRESSION: 1. No acute cardiopulmonary disease. Discharge Plan Discharge Attending physician on discharge: Nicola Vergara Consulting providers: Frank Moses Discharging Clinician: Nicola Vergara Anticipated Discharge Date/Time: 01/13/22 14:26 Patient Disposition: Home, Self-Care Activity: as tolerated Diet: heart he
--- NOTE | 2022-01-13 15:02 | PC.NURSE ---
called cardiology to clarify if pt ok to discharge, Nathalie Saez confirmed pt ok to discharge.
== END 2022-01-13 15:05 | disposition home or self-care (01) | DRG 310 ==
LOC: ANHED 01-10 01:48 → ANHIMU 01-10 02:12 → ANH3MEDSUR 01-11 12:00
PROVIDERS: Nurse Practitioner; Student in an Organized Health Care Education/Training Program; Admitting Provider Internal Medicine; Emergency Provider Emergency Medicine; PCP Internal Medicine; Visit Provider Internal Medicine
DX: I48.0 Paroxysmal atrial fibrillation (principal); I25.10 Atherosclerotic heart disease of native coronary artery without angina pectoris; I10 Essential (primary) hypertension; D69.6 Thrombocytopenia, unspecified; K21.9 Gastro-esophageal reflux disease without esophagitis; K44.9 Diaphragmatic hernia without obstruction or gangrene; E55.9 Vitamin D deficiency, unspecified; E11.9 Type 2 diabetes mellitus without complications; E78.5 Hyperlipidemia, unspecified; E66.9 Obesity, unspecified; H81.10 Benign paroxysmal vertigo, unspecified ear; M19.90 Unspecified osteoarthritis, unspecified site; I25.2 Old myocardial infarction; Z86.73 Personal history of transient ischemic attack (TIA), and cerebral infarction without residual deficits; Z85.3 Personal history of malignant neoplasm of breast; Z95.0 Presence of cardiac pacemaker; Z95.5 Presence of coronary angioplasty implant and graft; Z90.49 Acquired absence of other specified parts of digestive tract; Z90.12 Acquired absence of left breast and nipple; Z79.82 Long term (current) use of aspirin
CPT/HCPCS: 36415; 71046; 80048; 80053; 82948; 83690; 83735; 84484; 85025; 85055; 85610; 85730; 93005; 96365; 96366; 99285; A9270; G0378; J3475

== ENCOUNTER 2022-03-05 13:52 | Emergency (ER) | payer MEDICARE, SELFPAY ==
--- NOTE | ~2022-03-05 | XR_ITS ---
EXAMINATION: XR chest 2V Exam Date/Time: 03/05/2022 14:52 CDT HISTORY: chest pain, TACHYCARDIA, HX AFIB, FATIGUE Comparison: 01/10/2022. RESULT: Lines, tubes, and devices: Left axillary and left breast surgical clips. Cardiac occlusion device. C oronary stent/stents. Lungs and pleura: Senescent change. Cardiomediastinal silhouette: Stable. Other: No acute osseous or upper abdominal finding. IMPRESSION: No acute cardiopulmonary process. Reviewed, dictated and finalized at location [facility].
--- NOTE | 2022-03-05 13:54 | ECG_ITS ---
Measurements Intervals [place] Rate: 128 P: NE: 0 QRS: -64 QRSD: 71 T: 3 QT: 331 QTc: 483 Interpretive Statements ATRIAL FIBRILLATION WITH RAPID VENTRICULAR RESPONSE LOW QRS VOLTAGE POOR R-WAVE PROGRESSION OLD INFERIOR INFARCT ST-T WAVE ABNORMALITY COMPARED TO ECG 01/10/2022 00:55:22 NO SIGNIFICANT CHANGES COMPARED TO PRIOR Electronically Signed On 03-06-2022 17:24:17 CDT by Maria Isabel Cesar M.D.
[2022-03-05 14:00] VITALS: BP 131/88; PULSE 138; RESP 17; TEMP 36.7; O2SAT 98
[2022-03-05 14:22] VITALS: PULSE 133
[2022-03-05 14:22] LABS: Basophils Percent Auto 0.3 % (0.2-1.2); Eosinophils Percent Auto 0.2 % (0-4.4); Hematocrit 40.6 % (37.0-47.0); Hemoglobin 12.8 g/dL (12.0-15.0); Immature Granulocyte Absolute 0.04 K/mm3 (0.00-0.031); Immature Granulocyte Percent A 0.4 % (0-0.5); Lymphocytes Absolute Auto 1.29 K/mm3 (0.9-3.2); Mean Corpuscular HGB Conc 31.5 g/dl (32-36); Mean Corpuscular Hemoglobin 27.8 pg (26-34); Mean Corpuscular Volume 88.3 fl (80-100); Mean Platelet Volume 12.4 fl (7.4-10.4); Monocytes Absolute Auto 0.5 K/mm3 (0.1-0.6); Monocytes Percent Auto 5.4 % (2.6-8.5); Neutrophils Percent Auto 80.7 % (45.5-73.1); Platelet Count Result 135 k/mm3 (150-375); Red Cell Distribution Width 12.5 % (11.5-14.5); White Blood Count 9.9 K/mm3 (4.5-10.0)
[2022-03-05 14:39] LABS: Alanine Aminotransferase 21 U/L (6-35); Albumin Level 4.1 g/dL (3.5-5.1); Alkaline Phosphatase 61 U/L (38-126); Anion Gap 11 mmol/L (8-16); Aspartate Amino Transferase 29 U/L (14-36); Bilirubin,Total 0.5 mg/dL (0.2-1.3); Blood Urea Nitrogen 8 mg/dL (7-17); Calcium 8.6 mg/dL (8.4-10.2); Carbon Dioxide 29 mmol/L (22-30); Chloride 99 mmol/L (98-107); Estimated CRCL calculation 53 ml/min; Estimated Glomerular Filt Rate > 60; Glucose 179 mg/dL (65-110); Lipase 46 U/L (23-300); Potassium 3.1 mmol/L (3.4-5.0); Sodium 139 mmol/L (137-145)
--- NOTE | 2022-03-05 14:41 | PC.NURSE ---
BRUCE from Dr. Pierce for 10mg diltiazem
[2022-03-05] MEDS: dilTIAZem HCl INJ 25 MG/5 ML VIAL 10 MG IV PUSH (14:43)
[2022-03-05 14:50] LABS: Troponin I < 0.012 ng/mL (0.000-0.034)
[2022-03-05 14:58] VITALS: BP 116/73; PULSE 104; RESP 12; O2SAT 100
[2022-03-05 14:58] LABS: INR 1.1; Prothrombin Time 14.2 Seconds (11.1-14.7)
[2022-03-05 14:59] LABS: Partial Thromboplastin Time 30.9 SECONDS (22.3-36.8)
[2022-03-05] MEDS: POTASSIUM CHLORIDE 20 MEQ TABLET 40 MEQ PO (16:15)
[2022-03-05] MEDS: MAGNESIUM SULF 2 GM/WATER 50ML 2 GM/50 ML BAG IVPB (16:15)
[2022-03-05 17:00] VITALS: BP 101/68; PULSE 104; RESP 19; O2SAT 97
[2022-03-05 17:40] LABS: Troponin I < 0.012 ng/mL (0.000-0.034)
[2022-03-05 17:42] VITALS: PULSE 108
[2022-03-05] MEDS: AMIODARONE HCL 200 MG TABLET 400 MG PO (17:42)
[2022-03-05 18:09] VITALS: BP 126/87; PULSE 106; RESP 19; O2SAT 99
--- NOTE | 2022-03-05 23:00 | ED.GENADULT ---
HPI - General Adult General Chief complaint: Chest Pain Stated complaint: I'm in A-fib Time Seen by Provider: 03/05/22 14:25 History of Present Illness HPI narrative: This is a 77-year-old female with history of atrial fibrillation presenting to ED in AFib. Patient says that starting last night she started experience palpitations. was associated with a chest heaviness that has since resolved. Patient also notes that she has some fatigue. Patient notes that she was recently switched from sotalol to amiodarone. This occurred 1 month ago. Since then the patient has not had any episodes of AFib with RVR until last night. Patient's automotive assembler is Dr. Kenny. Her EP is Dr. Obregon at [place]. Related Data Home Medications Medication Instructions Recorded Confirmed CoQ-10 200 mg PO DAILY 04/30/19 03/01/22 atorvastatin 40 mg tablet 40 mg PO HS 04/30/19 03/01/22 tamoxifen 20 mg tablet 20 mg PO HS 04/30/19 03/01/22 furosemide 20 mg tablet 20 mg PO QA 06/18/20 03/01/22 ascorbic acid (vitamin C) 250 mg 1,000 mg PO DAILY 09/29/20 03/01/22 tablet ferrous sulfate 325 mg (65 mg 325 mg PO BID 09/29/20 03/01/22 iron) tablet (Iron (ferrous sulfate)) evening primrose oil 500 mg capsule 1,000 mg PO DAILY 05/18/21 03/01/22 lactobacillus combination no.4 3 3,000 mmu cells PO DAILY 05/18/21 03/01/22 billion cell capsule (Probiotic) multivitamin with minerals-folic 1 tablet PO DAILY 11/02/21 03/01/22 acid 0.4 mg tablet omega 5-huh-sxt-fish oil 1,000 mg 1 cap PO DAILY 11/02/21 03/01/22 (120 mg-180 mg) capsule (Fish Oil) calcium polycarbophil 625 mg 1,250 mg PO BID 01/10/22 03/01/22 tablet (FiberCon) amiodarone 400 mg tablet 400 mg PO DAILY 03/01/22 03/01/22 Allergies Allergy/AdvReac Type Severity Reaction Status Date / Time No Known Allergies Allergy Verified 03/01/22 08:36 Review of Systems Review of Systems: CONSTITUTIONAL: Denies night sweats. EYES: No eye pain ENT: Denies rhinorrhea CARDIOVASCULAR: admits palpitations RESPIRATORY: Denies hemoptysis GASTROINTESTINAL: Denies hematemesis GENITOURINARY: Denies hematuria. SKIN: Denies rash MUSCULOSKELETAL: Denies myalgia. NEUROLOGIC: Denies weakness. PSYCHIATRIC: Denies delusions PMF Past Medical History Medical History Arthritis BPPV (benign paroxysmal positional vertigo) CAD (coronary artery disease) CVA (cerebral vascular accident) DDD (degenerative disc disease) Diastolic dysfunction Echocardiogram 11/2021: Borderline left ventricular hypertrophy, overall good systolic function with EF of 63%, small area of the basal inferior wall hypokinesis, borderline global longitudinal strain, diastolic dysfunction, moderate left atrial enlargement, mild pulmonary hypertension DM (diabetes mellitus) Dyslipidemia Gastric polyps GERD (gastroesophageal reflux disease) Hiatal hernia History of colon polyps History of GI bleed History of heart attack Hx of breast cancer Stage II breast cancer with 1 positive lymph node status post chemotherapy and radiation Hypertension Hypovitaminosis D Obesity Paroxysmal atrial fibrillation Shingles Thrombocytopenia TIA (transient ischemic attack) Surgical History Surgical History History of cholecystectomy History of colonoscopy with polypectomy Most recent September 2020 History of dilation and curettage History of esophagogastroduodenoscopy (EGD) Most recent EGD 11/18/2021 demonstrated multiple gastric polyps several of which were removed. History of mastectomy (11/2011) Left breast History of removal of cyst from finger Hx of bilateral cataract extraction Hx of cardiac cath with stent placement Hx of tubal ligation Presence of Watchman left atrial appendage closure device S/P ablation of atrial fibrillation Family History Family History Sibling Fa
== END 2022-03-05 18:10 | disposition home or self-care (01) ==
PROVIDERS: Emergency Provider Emergency Medicine; PCP Internal Medicine
DX: I48.0 Paroxysmal atrial fibrillation (principal); I25.10 Atherosclerotic heart disease of native coronary artery without angina pectoris; E11.9 Type 2 diabetes mellitus without complications; K21.9 Gastro-esophageal reflux disease without esophagitis; E78.5 Hyperlipidemia, unspecified; I25.2 Old myocardial infarction; I10 Essential (primary) hypertension; E55.9 Vitamin D deficiency, unspecified; E66.9 Obesity, unspecified; Z68.27 Body mass index [BMI] 27.0-27.9, adult; Z90.12 Acquired absence of left breast and nipple; Z86.73 Personal history of transient ischemic attack (TIA), and cerebral infarction without residual deficits; Z85.3 Personal history of malignant neoplasm of breast; Z86.010 Personal history of colon polyps; Z92.3 Personal history of irradiation; Z92.21 Personal history of antineoplastic chemotherapy; Z98.42 Cataract extraction status, left eye; Z98.41 Cataract extraction status, right eye; Z79.82 Long term (current) use of aspirin; Z79.84 Long term (current) use of oral hypoglycemic drugs; R94.31 Abnormal electrocardiogram [ECG] [EKG]
CPT/HCPCS: 36415; 71046; 80053; 83690; 84484; 85025; 85610; 85730; 93005; 96365; 96375; 99284; A9270; J3475

== ENCOUNTER 2022-03-21 14:23 | Outpatient (CLI) | payer MEDICARE, SELFPAY ==
--- NOTE | ~2022-03-21 | CT_ITS ---
EXAMINATION: CT abdomen wo con DATE: 03/21/2022 14:40 INDICATION: Left upper quadrant pain TECHNIQUE: Computed tomography (CT) of the abdomen was performed without intravenous contrast. The do se-length product (DLP) was 244.20 mGy-cm. Automated exposure control and iterative reconstruction te nique were employed. COMPARISON: 04/15/2018 FINDINGS: Minimal dependent atelectasis is present in the lung bases. The heart size is normal. There is nodularity of the liver surface. The gallbladder is surgically absent. Punctate calcifications in an otherwise normal spleen likely represent healed granulomatous disease. The pancreas and right adr enal gland are normal. There is a stable 9 mm adenoma of the left adrenal gland. Although evaluation is limited by the absence of intravenous contrast, there is a 2.9 cm mass of the right mid kidney. Th e left kidney is unremarkable. There are no pathologically enlarged abdominal lymph nodes. There is c alcified atherosclerosis of the aorta and many of the other arteries. There is an umbilical hernia co ntaining fat. Moderate to severe lumbar spondylosis is noted. IMPRESSION: 1. No CT correlate for left upper quadrant pain. 2. Right kidney mass concerning for neoplasm. Follow-up CT or MRI without and with contrast is recomm ended. 3. Cirrhosis. Reviewed, dictated and finalized at location A. IMPRESSION: 1. No CT correlate for left upper quadrant pain. 2. Right kidney mass concerning for neoplasm. Follow-up CT or MRI without and w ith contrast is recommended. 3. Cirrhosis.
== END 2022-03-21 14:24 | disposition home or self-care (01) ==
PROVIDERS: PCP Internal Medicine; Visit Provider Internal Medicine
DX: R10.9 Unspecified abdominal pain (principal); N28.89 Other specified disorders of kidney and ureter; K74.60 Unspecified cirrhosis of liver
CPT/HCPCS: 74150

== ENCOUNTER 2022-03-22 13:34 | Outpatient (CLI) | payer MEDICARE, SELFPAY ==
[2022-03-22 14:20] LABS: Alanine Aminotransferase 19 U/L (6-35); Alkaline Phosphatase 58 U/L (38-126); Anion Gap 14 mmol/L (8-16); Aspartate Amino Transferase 28 U/L (14-36); Bilirubin,Total 0.6 mg/dL (0.2-1.3); Blood Urea Nitrogen 17 mg/dL (7-17); Calcium 8.1 mg/dL (8.4-10.2); Carbon Dioxide 30 mmol/L (22-30); Chloride 95 mmol/L (98-107); Cholesterol 127 mg/dL (0-200); Estimated Glomerular Filt Rate > 60; Glucose 170 mg/dL (65-110); HDL Direct 39 mg/dL; Potassium 3.5 mmol/L (3.4-5.0); Sodium 139 mmol/L (137-145); Triglycerides 129 mg/dL (<150)
[2022-03-22 14:31] LABS: LDL Cholesterol Direct 62 mg/dL
[2022-03-22 14:54] LABS: Creatinine Urine 212.9 mg/dL
[2022-03-22 14:59] LABS: MALB Creatinine Ratio 14.5 mg/g (0-30); Microalbumin Urine Random 30.9 mg/L (0-16.7)
[2022-03-22 15:00] LABS: Hepatitis B Surface Antigen Negative (Negative)
[2022-03-22 15:06] LABS: HAV RESULT Negative (Negative); Hepatitis B Core IgM Result Negative (Negative)
[2022-03-22 15:18] LABS: Hepatitis C Virus Antibody Negative (Negative)
[2022-03-22 16:29] LABS: Hemoglobin A1C 6.1 % (<5.7)
== END 2022-03-22 13:35 | disposition home or self-care (01) ==
PROVIDERS: PCP Internal Medicine; Visit Provider Internal Medicine
DX: E78.5 Hyperlipidemia, unspecified (principal); I10 Essential (primary) hypertension; K74.60 Unspecified cirrhosis of liver; E11.65 Type 2 diabetes mellitus with hyperglycemia
CPT/HCPCS: 36415; 80053; 80061; 80074; 82043; 83036

== ENCOUNTER 2022-03-24 13:04 | Outpatient (RCR) | payer MEDICARE, SELFPAY ==
--- NOTE | 2022-03-24 14:16 | PTOPEVAL1 ---
Assessment and note entered by Yeni Powell, PT Evaluation Information Assessment Status Evaluation Diagnosis cervicalgia Onset Mar Subjective Information gradual increase in neck pain, no trauma or injury to neck; reports drinks water only when taking her meds, about 1/2 cup /day Reported Pain Level Pain Score Self Report neck pain Additional Pain Score Comments reports pain range of 1-5/10; aggravating pain, L side neck; increase pain with rotation of head to L; self assessment Oswestry 30% limitation; hard to get comfortable with sleeping--usually sleep on her sides; educated on correct sleeping position and neck position; hobby of playing games on the phone--rounded posture/positioning; decrease pain with rest; is not taking any pain meds; discussed use of heat PRN; reports L side hoahaoism headaches ~ 1x/month, last about 5 minutes; Assessment PT Clinical Summary Jackie has the diagnosis of cervicalgia. She reports gradual increase in pain, without injury or trauma to neck. She has the hobby of playing word games on her phone and sitting when doing it. She also reports intermittent headaches and dizziness. She admits to NOT drinking any water during the day, except with taking her meds. Her medical history includes: vertigo, breast cancer with radiation treatment, cardiac issues and diabetes. With the evaluation, she has decreased cervical rotation to R and L, and side bending to the R with pain; moderate spasms and tenderness over L upper cervical and upper traps areas; poor sitting and standing position of neck and shoulders. Skilled PT services are indicated for modalities to decrease pain--heat and manual therapy, therapeutic exercises to stretch and strengthen cervical-thoracic areas, with education to progress HEP and improve posture. Plan of Care Interventions Hot Pack/Cold Pack,Manual Therapy,Neuro Re- education,Patient/Caregiver Education,Therapeutic Activities,Therapeutic Exercise,Other Other Interventions taping PT Services Indicated Yes Treatment Frequency and 2x/wk for 4 weeks Duration These treatments will address the objective and functional deficits as defined above. The patient will be advanced safely and appropriately in order
--- NOTE | 2022-04-07 10:08 | PCPTNOTE ---
Patient called & cancelled scheduled appointment this date due to recently diagnosed with renal CA and has real bad vertigo, unable to get up.
--- NOTE | 2022-04-07 12:41 | PCPTNOTE ---
PHYSICAL THERAPY DISCHARGE 04-07-22 Attending Provider: Lauro Warren DO Patient:Jackie Waddell Date of :1945 Jackie called today and canceled all of her therapy appointments due to a new diagnosis of renal cancer. She received the PT evaluation on 03/24/2022 for cervicalgia. She will be discharged at this time. Thank you for referring Mrs. Waddell to [facility].
== END 2022-04-07 15:15 | disposition home or self-care (01) ==
LOC: ANHPT 13:04
PROVIDERS: PCP Internal Medicine; Visit Provider Internal Medicine
DX: M54.2 Cervicalgia (principal)
CPT/HCPCS: 97110; 97161

== ENCOUNTER 2022-04-04 10:02 | Outpatient (CLI) | payer MEDICARE, SELFPAY ==
--- NOTE | ~2022-04-04 | MR_ITS ---
EXAMINATION: MR abdomen wo/w con DATE: 04/04/2022 11:18 INDICATION: Right kidney mass. TECHNIQUE: Magnetic resonance imaging (MRI) of the abdomen was performed without and with 14 mL Multi Rosa Maria intravenous contrast. COMPARISON: CT abdomen 03/21/2022 FINDINGS: The liver demonstrates surface nodularity, consistent with cirrhosis. The gallbladder is absent. The spleen is normal. There is a 5 mm cystic lesion in the tail of the pancreas. Right adrenal gland is n ormal. There is an 11 mm mass in left adrenal gland containing microscopic fat, consistent with an ad enoma. There is a 3.3 cm enhancing mass in right kidney. There are cysts in right kidney measuring up to 7 mm. There are hemorrhagic cysts in left kidney measuring up to 4 mm. There are no dilated loops of bowel. IMPRESSION: 1. 3.3 cm enhancing mass in right kidney, consistent with renal cell carcinoma. 2. Cirrhosis of the liver. 3. 5 mm cystic lesion in the pancreas. The differential diagnosis includes pseudocyst, intraductal pa pillary mucinous neoplasm (IPMN), mucinous cystic neoplasm (MCN), serous cystadenoma, and neuroendocr ine tumor. Consider abdomen MRI without and with contrast in 2 years. Reviewed, dictated and finalized at location A. IMPRESSION: 1. 3.3 cm enhancing mass in right kidney, consistent with renal cell carcinoma. 2. Cirrhosis of the liver. 3. 5 mm cystic lesion in the pancreas. The differential diagnosis includes pseu docyst, intraductal papillary mucinous neoplasm (IPMN), mucinous cystic neoplas m (MCN), serous cystadenoma, and neuroendocrine tumor. Consider abdomen MRI wit hout and with contrast in 2 years.
== END 2022-04-04 10:03 | disposition home or self-care (01) ==
PROVIDERS: PCP Internal Medicine; Visit Provider Internal Medicine
DX: N28.89 Other specified disorders of kidney and ureter (principal); K74.60 Unspecified cirrhosis of liver; K86.9 Disease of pancreas, unspecified
CPT/HCPCS: 74183; A9577

== ENCOUNTER 2022-04-27 17:54 | Inpatient (IN) | payer MEDICARE, SELFPAY ==
[2022-04-27] VITALS (7 sets, daily range): BP systolic 127–138; BP diastolic 60–79; PULSE 74–84; RESP 18–19; TEMP 36.8–37; O2SAT 98
--- NOTE | ~2022-04-27 | XR_ITS ---
EXAMINATION: XR chest 1V portable Exam Date/Time: 04/27/2022 18:35 TIP STRETCHER HISTORY: N/V/D, WEAKNESS. HX CAD, CVA, HTN, HEART ATTACK Comparison: 03/05/2022. RESULT: Lines, tubes, and devices: Left axillary surgical clips. Bilateral breast calcifications. Atrial occ lusion device. Coronary artery stent/stents Lungs and pleura: Increasing subsegmental bibasilar opacities and diffuse mild reticular and reticul onodular opacities. Cardiomediastinal silhouette: Stable. Other: No acute osseous or upper abdominal finding. IMPRESSION: Pulmonary opacities may reflect mild interstitial edema versus respiratory bronchiolitis. Bibasilar a telectasis/consolidation. Reviewed, dictated and finalized at location K. STRETCHER IMPRESSION: Pulmonary opacities may reflect mild interstitial edema versus respiratory bron chiolitis. Bibasilar atelectasis/consolidation.
--- NOTE | ~2022-04-27 | US_ITS ---
EXAMINATION: US renal BI DATE: 05/03/2022 14:04 INDICATION: JENNIFER TECHNIQUE: Multiple grayscale and Doppler ultrasound images of the kidneys were obtained. COMPARISON: CT A/P 04/27/2022. FINDINGS: The right kidney measures 14 x 4.2 x 4.7 cm. The left kidney measures 12.8 x 5.7 x 4.6 cm. The kidney s demonstrate normal parenchymal echogenicity. Solid appearing, hyperechoic right upper pole 6 cm ma ss, previously reported as a renal cell carcinoma. There is no hydronephrosis. The bladder is normal. bilateral ureteral jets. IMPRESSION: 6 cm solid right upper pole mass. Reviewed, dictated and finalized at location K. SPECIALIST
--- NOTE | ~2022-04-27 | CT_ITS ---
EXAMINATION: CTA chest PE protocol DATE: 04/28/2022 01:05 INDICATION: Chest pain, hypoxia TECHNIQUE: Computed tomography angiography (CTA) of the chest was performed with 100 mL Omnipaque-350 intravenous contrast timed to evaluate the pulmonary arteries. Coronal maximum intensity projection 3D-reconstructions were created by the technologist. Automated exposure control and iterative reconst ruction technique were employed. Exam dose: 264.99 mGy-cm total exam DLP. COMPARISON: 04/27/2022 portable AP chest FINDINGS: There is moderate opacification the pulmonary arteries. Evaluation of the peripheral pulmon zaida arteries is limited due to motion. No central pulmonary embolus is noted. Thoracic aortic, great vessel and coronary artery calcifications. Cardiomegaly. No pericardial effusi on. There are mild bilateral pleural effusions. No significant hilar or mediastinal mass lesion or lymphadenopathy is appreciated. There are diffuse bilateral pulmonary infiltrates, which may be due to pulmonary edema and/or pneumonia. Asymmetric soft tissue thickening overlying retraction, lower outer quadrant left breast; history of partial left mastectomy for breast cancer. Bilateral prominent benign breast calcifications. Small sliding hiatal hernia. Possible right renal mass lesion; hypernephroma is not excluded. Status post cholecystectomy. There is surface nodularity of the liver suggesting cirrhosis. Diffuse idiopathic skeletal hyperostosis of the thoracic spine. Mild anterior wedging of T11, which a ppears chronic. No suspicious osteolytic or osteoblastic lesions are noted. IMPRESSION: Limited evaluation of peripheral pulmonary arteries due to motion; no central pulmonary embolism is evident Cardiomegaly, diffuse bilateral pulmonary infiltrates and mild bilateral pleural effusions, suggestin g congestive heart failure, pulmonary edema. Pneumonia is not excluded Cirrhosis Upper pole right renal mass lesion is suggested; cannot exclude hypernephroma Reviewed, dictated and finalized at Location A. Reviewed, dictated and finalized at location A. TER MACHINE IMPRESSION: Limited evaluation of peripheral pulmonary arteries due to motion; no central pulmonary embolism is evident Cardiomegaly, diffuse bilateral pulmonary infiltrates and mild bilateral pleura l effusions, suggesting congestive heart failure, pulmonary edema. Pneumonia is not excluded Cirrhosis Upper pole right renal mass lesion is suggested; cannot exclude hypernephroma
--- NOTE | ~2022-04-27 | CT_ITS ---
EXAMINATION: CT abdomen pelvis w con DATE: 04/27/2022 19:09 INDICATION: abodminal pain, vomiting TECHNIQUE: Computed tomography (CT) of the abdomen and pelvis was performed with 100 mL Omnipaque-350 intravenous contrast. Automated exposure control and iterative reconstruction technique were employe d. The dose-length product was 754.67 mGy-cm. COMPARISON: MR abdomen without and with contrast 04/04/2022, CT abdomen 03/21/2022. FINDINGS: Lower thorax: Mild mosaic attenuation. Bibasilar scar/atelectasis. Liver: Cirrhotic liver. Biliary/Gallbladder: Gallbladder is absent. No bile duct dilation. Pancreas: No mass or duct dilation. Spleen: Granulomatous calcifications. Adrenals:Left adrenal adenoma. Kidneys: Redemonstration of the left upper pole renal carcinoma. GI tract: Distal esophageal and gastric wall edema No small or large bowel dilation. Normal appendix. Mesentery/Peritoneum: No ascites, mass, or free air. Retroperitoneum: No mass. Pelvis: Pelvic organs are within normal limits. Soft Tissues: Soft tissues and body wall unremarkable. Bones: No acute osseous finding. IMPRESSION: Severe esophagitis/gastritis. Cirrhosis. Right upper pole renal cell carcinoma, grossly unchanged sin ce the prior study given interval difference in technique. Reviewed, dictated and finalized at location K. GER REGIONAL IMPRESSION: Severe esophagitis/gastritis. Cirrhosis. Right upper pole renal cell carcinoma, grossly unchanged since the prior study given interval difference in technique .
--- NOTE | ~2022-04-27 | XR_ITS ---
EXAM: XR knee LT 3V DATE: 04/27/2022 18:48 HISTORY: Recent fall, pain all around left knee and bruising medially . COMPARISON: 08/09/2021, images only. FINDINGS: Decreased mineralization. No fracture or dislocation. No lytic or blastic lesion. Tricompa rtmental osteoarthritic, severe in the medial compartment. No erosion or periosteal change. Soft tiss ues within normal limits. IMPRESSION: No acute osseous finding in the left knee. Reviewed, dictated and finalized at location K. MECHANIC
--- NOTE | ~2022-04-27 | CT_ITS ---
EXAMINATION: CT brain wo con DATE: 04/27/2022 18:52 INDICATION: recent fall, weakness . TECHNIQUE: Computed tomography (CT) of the head was performed without intravenous contrast. The mA wa s adjusted according to patient size. Iterative reconstruction technique was employed. The dose-lengt h product was 605.33 mGy-cm. COMPARISON: 02/17/2008 FINDINGS: No acute intracranial hemorrhage or extra-axial fluid collection. No hydrocephalus, mass, or herniation. No acute ischemic infarct. Unremarkable dural venous sinus attenuation. No acute osseous abnormality. The aerated spaces are clear. Mild atrophy and moderate chronic white matter change. Atherosclerotic intracranial calcification. Bi lateral lens replacements. IMPRESSION: No acute intracranial process. Reviewed, dictated and finalized at location K. TILE SETTER
--- NOTE | ~2022-04-27 | XR_ITS ---
EXAM: XR hip RT 2V w AP pelvis DATE: 04/27/2022 18:47 HISTORY: Recent fall, right hip pain and bruising laterally . COMPARISON: 04/20/2020. FINDINGS: Decreased mineralization. No fracture or dislocation. No lytic or blastic lesion. Degenera tive changes in the lumbar spine, bilateral SI joints and hips, and pubic symphysis. No erosion or pe riosteal change. Multiple pelvic phleboliths. IMPRESSION: No acute osseous finding in the pelvis or right hip. Reviewed, dictated and finalized at location K. L SEPARATOR
[2022-04-27 18:10] LABS: Basophils Absolute Auto 0.1 K/mm3 (0.0-0.1); Basophils Percent Auto 0.3 % (0.2-1.2); Eosinophils Percent Auto 0.3 % (0-4.4); Hematocrit 34.6 % (37.0-47.0); Hemoglobin 11.1 g/dL (12.0-15.0); Immature Granulocyte Absolute 0.05 K/mm3 (0.00-0.031); Immature Granulocyte Percent A 0.3 % (0-0.5); Lymphocytes Absolute Auto 2.19 K/mm3 (0.9-3.2); Lymphocytes Percent Auto 14.5 % (18.3-44.2); Mean Corpuscular HGB Conc 32.1 g/dl (32-36); Mean Corpuscular Hemoglobin 27.9 pg (26-34); Mean Corpuscular Volume 86.9 fl (80-100); Mean Platelet Volume 12.4 fl (7.4-10.4); Monocytes Absolute Auto 0.8 K/mm3 (0.1-0.6); Neutrophils Percent Auto 79.6 % (45.5-73.1); Platelet Count Result 141 k/mm3 (150-375); Red Blood Count 3.98 M/mm3 (4.2-5.4); Red Cell Distribution Width 13.1 % (11.5-14.5); White Blood Count 15.1 K/mm3 (4.5-10.0)
--- NOTE | 2022-04-27 18:27 | ED.NAVMDI ---
HPI - Nausea/Vomiting/Diarrhea General Chief complaint: Nausea/Vomiting/Diarrhea Stated complaint: dizzy, sick,n/v Time Seen by Provider: 04/27/22 18:03 History of Present Illness HPI Narrative: Patient is a 77-year-old female with a history of A. fib, breast cancer, hypertension presenting with lightheadedness and vomiting. Patient states that she fell approximately 5 days ago. States that she landed on her left knee and right hip. States that she has been able to ambulate since then but she has had to use her cane because she feels off balance. States that she feels lightheaded. States the symptoms started 4 days ago. States it feels differently than vertigo which she has had in the past. States that she has also had some abdominal pain and today she had several episodes of vomiting. States she also had some diarrhea. She denies headache, vision changes, numbness or weakness, chest pain, shortness of breath, dysuria, leg swelling. States she was recently diagnosed with a renal mass and is undergoing work-up for this. Related Data Home Medications Medication Instructions Recorded Confirmed atorvastatin 40 mg tablet 40 mg PO HS 04/30/19 04/27/22 tamoxifen 20 mg tablet 20 mg PO HS 04/30/19 04/27/22 furosemide 20 mg tablet 20 mg PO QAM 06/18/20 04/27/22 ascorbic acid (vitamin C) 250 mg 1,000 mg PO DAILY 09/29/20 04/27/22 tablet ferrous sulfate 325 mg (65 mg 325 mg PO BID 09/29/20 04/27/22 iron) tablet (Iron (ferrous sulfate)) lactobacillus combination no.4 3 3,000 mmu cells PO DAILY 05/18/21 04/27/22 billion cell capsule (Probiotic) multivitamin with minerals-folic 1 tablet PO DAILY 11/02/21 04/27/22 acid 0.4 mg tablet omega 3-min-tip-fish oil 1,000 mg 1 cap PO DAILY 11/02/21 04/27/22 (120 mg-180 mg) capsule (Fish Oil) calcium polycarbophil 625 mg 1,250 mg PO BID PRN Constipation 01/10/22 04/27/22 tablet (FiberCon) amiodarone 400 mg tablet 400 mg PO DAILY 03/01/22 04/27/22 metoprolol succinate 25 mg capsule 25 mg PO DAILY 03/21/22 04/27/22 sprinkle, ext. release 24 hr Allergies Allergy/AdvReac Type Severity Reaction Status Date / Time No Known Allergies Allergy Verified 04/27/22 18:01 Review of Systems Review of Systems: All systems reviewed & are unremarkable except as noted in HPI and below PMFSH Past Medical History Medical History Arthritis BPPV (benign paroxysmal positional vertigo) CAD (coronary artery disease) Cirrhosis New diagnosis March 2022 CVA (cerebral vascular accident) DDD (degenerative disc disease) Diastolic dysfunction Echocardiogram 11/2021: Borderline left ventricular hypertrophy, overall good systolic function with EF of 63%, small area of the basal inferior wall hypokinesis, borderline global longitudinal strain, diastolic dysfunction, moderate left atrial enlargement, mild pulmonary hypertension DM (diabetes mellitus) Dyslipidemia Gastric polyps GERD (gastroesophageal reflux disease) Hiatal hernia History of colon polyps History of GI bleed Hx of breast cancer Stage II breast cancer with 1 positive lymph node status post chemotherapy and radiation Hypertension Hypovitaminosis D Obesity Paroxysmal atrial fibrillation Shingles Thrombocytopenia TIA (transient ischemic attack) Surgical History Surgical History History of cholecystectomy History of colonoscopy with polypectomy Most recent September 2020 History of dilation and curettage History of esophagogastroduodenoscopy (EGD) Most recent EGD 11/18/2021 demonstrated multiple gastric polyps several of which were removed. History of heart artery stent (~2019) LAD performed at [place] History of mastectomy (11/2011) Partial left breast History of removal of cyst from finger Hx of bilateral cataract extraction Hx of cardiac cath with stent placement Hx of tubal ligation Presence of Watchman left atrial ap
[2022-04-27 18:34] LABS: Alanine Aminotransferase 23 U/L (6-35); Albumin Level 4.2 g/dL (3.5-5.1); Alkaline Phosphatase 78 U/L (38-126); Anion Gap 13 mmol/L (8-16); Aspartate Amino Transferase 34 U/L (14-36); Bilirubin,Total 0.8 mg/dL (0.2-1.3); Blood Urea Nitrogen 16 mg/dL (7-17); Calcium 9.2 mg/dL (8.4-10.2); Carbon Dioxide 22 mmol/L (22-30); Chloride 101 mmol/L (98-107); Estimated CRCL calculation 47 ml/min; Estimated Glomerular Filt Rate > 60; Glucose 127 mg/dL (65-110); Lipase 70 U/L (23-300); Potassium 4.1 mmol/L (3.4-5.0); Sodium 136 mmol/L (137-145)
[2022-04-27] MEDS: SODIUM CHLORIDE 0.9% IV 1,000 ML 999 ML IV CONT (19:25)
[2022-04-27 19:38] LABS: Appearance Urine Clear (Clear); Bilirubin Urine Negative (Negative); Blood Urine Negative (Negative); Color Urine Yellow (Yellow); Glucose Urine UA Negative (Negative); Ketones Urine Trace mg/dL (Negative); Leukocyte Esterase Ur Negative LEU/UL (Negative); Nitrate Urine Negative (Negative); Protein Urine 2+ mg/dL (Negative); Urobilinogen Urine 0.2 mg/dL (<2.0)
--- NOTE | 2022-04-27 19:42 | ECG_ITS ---
Measurements Intervals [place] Rate: 78 P: 70 TN: 240 QRS: -67 QRSD: 86 T: 62 QT: 407 QTc: 465 Interpretive Statements SINUS OR ECTOPIC ATRIAL RHYTHM LEFT AXIS DEVIATION LOW QRS VOLTAGE IN LIMB LEADS POOR R WAVE PROGRESSION, CONSIDER ANTERIOR INFARCT BASELINE ARTIFACT- I, II, AVR, AVL, AVF ABNORMAL ECG COMPARED TO ECG 03/05/2022 13:56:34 SINUS RHYTHM NOW PRESENT LEFT-AXIS DEVIATION NOW PRESENT Electronically Signed On 04-28-2022 8:26:22 SPECIAL DAY CLASS TEACHER by Mik Monsalve D.O.
[2022-04-27 19:45] LABS: Bacteria Urine Trace /hpf; Mucus Urine Few /lpf; Squamous Epithelial Cell Urine Few /hpf (Few); WBC Urine 0-3 /hpf
[2022-04-27 19:46] LABS: NT Pro B Type Natriuretic Pept 1220 pg/mL (5-100)
[2022-04-27 19:52] LABS: Add Urine Microscopic? YES
[2022-04-27] MEDS: ASPIRIN 81 MG CHEWABLE TABLET 324 MG PO (19:58)
[2022-04-27 20:15] LABS: Influenza A QL RT-PCR Negative (Negative); Influenza B QL RT-PCR Negative (Negative); SARS-CoV-2 RNA PCR Negative
--- NOTE | 2022-04-27 20:45 | PM.IMHP ---
H&P: HPI History of Present Illness Date/Time: 04/27/22 20:45 Chief Complaint: Nausea vomiting diarrhea, recent fall Narrative: 77-year-old female with a past medical history coronary artery disease with LAD stent 2018, paroxysmal atrial fibrillation status post Watchman, diastolic dysfunction, mild pulmonary hypertension and type 2 diabetes mellitus who presented to the ER from home via EMS due to feeling sick. The patient reports that on Monday she tripped over board in her home and fell onto her knees and scraped her right hip. She reports that she was feeling fine at the time of the fall and just was not paying attention to what she was doing. However the next morning she started a half to walk with a cane due to feeling off balance and with her recent injuries she was not quite is stable. She reports that she feels lightheaded and off balance since then but has not had any true dizziness as in feeling the room spin. She reports that she does not E 1 to sit up in bed due to this sensation of being off balance. Then around and morning she ate some oatmeal. About 3 hours later she had some nausea, diaphoresis and 1 loose stool. At that same time she developed pain across the shoulder blades in her back. She denies any chest pain or palpitations. She has been taking her medications as directed but had decreased oral intake over the last several days. She reports that her legs have been slightly more swollen over the last 24-48 hours but she attributed this to to her legs dangling. She also has some swelling around her knee where she has significant bruising. She reports that she has been having epigastric and left upper quadrant pain and feels like there is an not in her up to her abdomen. She had a CT scan of her abdomen in March due to these complaints at which time she was diagnosed with new diagnosis of cirrhosis and an incidental finding of a left renal mass which she is supposed to have follow-up in the near future with Urology. The she has not had any hematuria, hematochezia or melena. She reported developing a new cough after she arrived to the ER and received [address] of the abdomen pelvis with conscious was performed which demonstrated severe gastritis/esophagitis, cirrhosis right upper pole renal cell carcinoma with renal cell lesion grossly unchanged from prior study and March including abdominal MRI. She denies any significant or increased GERD symptoms from baseline. She has not had any difficulty swallowing before today with her vomiting. She had a troponin performed in the ER that was elevated at 0.08 and continued to climb to 1.47 and 2.17. Cardiology was consulted from the ER. The patient reports that she does have history of coronary artery disease but did not have significant chest pain and was diagnosed with her coronary artery disease as part of her evaluation for her recurrent atrial fibrillation and had a stent placed to her LAD in approximately 2019. With the elevated troponin the ER requested the patient receive a dose of nitro. On arrival to the IMU. The patient did not like the sublingual nitro as it burned her mouth but had almost complete resolution of her 5/10 pain between her shoulders. The patient on exam it was noted to have asymmetric lower extremity swelling left greater than right and had developed hypoxia and had been placed on 4 L nasal cannula in the ER. She was weaned down to 2 L nasal cannula and tried to stop the oxygen per patient request in the patient dropped her oxygen saturations to 87%. She had been tachypneic in the ER in with her reporting some left breast and left upper abdominal pain a Wells score was performed and was found to be high the patient was sent for CTA of the chest. (the patient had already received IV contrast for his CT of the abdomen but her creatinine was normal in she had received IV fluid hydration.) CTA was negative for pulmonary embolism but motion artifact was li
[2022-04-27 21:25] LABS: INR 1.3; Partial Thromboplastin Time 28.2 SECONDS (22.3-36.8); Prothrombin Time 15.4 Seconds (11.1-14.7)
--- NOTE | 2022-04-27 21:28 | PC.NURSE ---
This RN tried to call report nurse states that she will call me back she is in another room
--- NOTE | 2022-04-27 22:03 | ADMGEN ---
This patient, Jackie Waddell, was admitted to IMU Room 201-01. Patient/family oriented to hospital policies and general routines including ID bracelet, bed and alarms, visiting hours, pain management, procedures, bathroom and other care routines, personal items, smoking policy, room service/diet, and visiting hours. Information on how to activate the Rapid Response Team has been discussed. Patient/Family are encouraged to report perceived risks to care and to ask questions if they do not understand what they are told or what they should do.
--- NOTE | 2022-04-27 22:41 | ECG_ITS ---
Measurements Intervals [place] Rate: 75 P: 74 [place]: 228 QRS: -82 QRSD: 85 T: 68 QT: 395 QTc: 443 Interpretive Statements SINUS RHYTHM WITH FIRST DEGREE AV BLOCK LOW QRS VOLTAGE IN LIMB LEADS POOR R WAVE PROGRESSION, ANTERIOR LEADS INFERIOR INFARCT, AGE INDETERMINATE BORDERLINE T WAVE ABNORMALITY- HIGH LATERAL LEADS ABNORMAL ECG COMPARED TO ECG 04/27/2022 19:48:03 SINUS RHYTHM NOW PRESENT FIRST DEGREE AV BLOCK NOW PRESENT Electronically Signed On 04-28-2022 14:28:25 ARCHITECT by Mik Monsalve D.O.
[2022-04-27] MEDS: SODIUM CHLORIDE 0.9% IV 1,000 ML 100 ML IV CONT (22:59)
[2022-04-27] MEDS: PANTOPRAZOLE SODIUM IV 40 MG VIAL IV PUSH (22:59)
[2022-04-27] MEDS: NITROGLYCERIN SL 0.4 MG TABLET SUBLINGUAL (22:59)
[2022-04-27] MEDS: TAMOXIFEN CITRATE (*CHEMO) 10 MG TABLET 20 MG PO (23:35)
[2022-04-27] MEDS: ATORVASTATIN 40 MG TABLET PO (23:35)
[2022-04-28] VITALS (19 sets, daily range): BP systolic 89–134; BP diastolic 47–69; PULSE 66–89; RESP 16–24; TEMP 36.5–37; O2SAT 88–100
--- NOTE | 2022-04-28 00:11 | ECG_ITS ---
Measurements Intervals [place] Rate: 75 P: 263 VA: 201 QRS: -29 QRSD: 80 T: 79 QT: 381 QTc: 427 Interpretive Statements ALTERNATE LEAD PLACEMENT: Posterior V1: V7, V2: V8, V3: V9, V4: V4, V5: V5, V6: V6 NO ACUTE POSTERIOR INFARCT SINUS RHYTHM BORDERLINE AV CONDUCTION DELAY LOW VOLTAGE IN DIFFUSE LEADS BORDERLINE ST-T WAVE ABNORMALITY- HIGH LATERAL LEADS BORDERLINE ECG COMPARED TO ECG 04/27/2022 19:48:03 NO SIGNIFICANT CHANGES Electronically Signed On 04-28-2022 8:47:57 PHOTOENGRAVING MACHINE OPERATOR/TENDER by Mik Monsalve D.O.
[2022-04-28] MEDS: FUROSEMIDE INJ 40 MG/4 ML VIAL IV PUSH (02:18)
[2022-04-28] MEDS: ACETAMINOPHEN 500 MG TABLET PO ×3 (02:22→20:42)
[2022-04-28] MEDS: NITROGLYCERIN OINTMENT 1 INCH DOSE TRANSDERM ×4 (02:40→23:31)
[2022-04-28 03:19] LABS: Basophils Percent Auto 0.1 % (0.2-1.2); Hematocrit 34.1 % (37.0-47.0); Hemoglobin 10.8 g/dL (12.0-15.0); Immature Granulocyte Absolute 0.09 K/mm3 (0.00-0.031); Immature Granulocyte Percent A 0.5 % (0-0.5); Lymphocytes Absolute Auto 1.11 K/mm3 (0.9-3.2); Lymphocytes Percent Auto 6.5 % (18.3-44.2); Mean Corpuscular HGB Conc 31.7 g/dl (32-36); Mean Corpuscular Hemoglobin 28.1 pg (26-34); Mean Corpuscular Volume 88.6 fl (80-100); Mean Platelet Volume 12.5 fl (7.4-10.4); Monocytes Absolute Auto 0.7 K/mm3 (0.1-0.6); Monocytes Percent Auto 4.3 % (2.6-8.5); Neutrophils Absolute Auto 15.1 K/mm3 (1.3-6.7); Neutrophils Percent Auto 88.6 % (45.5-73.1); Platelet Count Result 149 k/mm3 (150-375); Red Blood Count 3.85 M/mm3 (4.2-5.4); Red Cell Distribution Width 13.2 % (11.5-14.5)
[2022-04-28 03:36] LABS: Glucose Point of Care 134 mg/dl (65-105)
[2022-04-28 05:28] LABS: Glucose Point of Care 133 mg/dl (65-105)
[2022-04-28 07:44] LABS: Alanine Aminotransferase 20 U/L (6-35); Albumin Level 3.7 g/dL (3.5-5.1); Alkaline Phosphatase 63 U/L (38-126); Anion Gap 12 mmol/L (8-16); Aspartate Amino Transferase 38 U/L (14-36); Bilirubin,Total 0.8 mg/dL (0.2-1.3); Blood Urea Nitrogen 17 mg/dL (7-17); Calcium 8.6 mg/dL (8.4-10.2); Carbon Dioxide 22 mmol/L (22-30); Chloride 103 mmol/L (98-107); Estimated CRCL calculation 43 ml/min; Estimated Glomerular Filt Rate > 60; Glucose 130 mg/dL (65-110); Potassium 4.5 mmol/L (3.4-5.0); Sodium 137 mmol/L (137-145)
[2022-04-28] MEDS: THERAPEUTIC MULTIVITAMINS/MINERALS TAB (*BKC) 1 TABLET PO (08:39)
[2022-04-28] MEDS: OMEGA 3 POLYUNSAT FATTY ACIDS 1 GM CAP PO (08:39)
[2022-04-28] MEDS: ASPIRIN 325 MG ENTERIC TABLET PO (08:39)
[2022-04-28] MEDS: AMIODARONE HCL 200 MG TABLET 400 MG BY MOUTH (08:40)
[2022-04-28] MEDS: ACIDOPHILUS/BULGARICUS CHEWABLE TABLET 1 TABLET BY MOUTH (08:40)
[2022-04-28] MEDS: METOPROLOL SUCCINATE EXT REL 25 MG TABCR PO (08:40)
[2022-04-28] MEDS: PANTOPRAZOLE 40 MG TABLET PO (09:32)
--- NOTE | 2022-04-28 10:07 | PM.IMPN ---
Progress Note: A&P Assessment and Plan (1) Non-STEMI (non-ST elevated myocardial infarction): Code(s): I21.4 - Non-ST elevation (NSTEMI) myocardial infarction Status: Acute Assessment and Plan: Stat CTA of the chest was performed was negative for pulmonary embolism but did show pulmonary edema. Patient received Lasix and nitroglycerin with improvement in symptoms of both hypoxia and back pain. Patient's troponin did continue to rise despite the treatment of the symptoms. Cardiology has been consulted. Patient refuses anticoagulation at this time. Will continue with diuresis and vasoactive agents. Will monitor blood pressure closely. The patient is currently in sinus rhythm is had no evidence of arrhythmias since admission. (2) Pulmonary edema: Qualifiers: Chronicity: acute Qualified Code(s): J81.0 - Acute pulmonary edema Code(s): J81.1 - Chronic pulmonary edema Status: Acute Assessment and Plan: Will continue with diuresis and vasoactive agents. Will monitor blood pressure closely. (3) Cirrhosis: Code(s): K74.60 - Unspecified cirrhosis of liver Status: Acute Assessment and Plan: Patient will need follow-up with Gastroenterology as outpatient specially in the setting of recent diagnosis of cirrhosis. cirrhosis is likely due to steatohepatitis verses prior history of chemotherapy regimens. Patient does not have a history of alcohol use. (4) Esophagitis with gastritis: Code(s): K29.70 - Gastritis, unspecified, without bleeding; K20.90 - Esophagitis, unspecified without bleeding Status: Acute Assessment and Plan: Continue PPI IV b.i.d. (5) Left breast mass: Qualifiers: Breast mass location: unspecified quadrant Qualified Code(s): N63.20 - Unspecified lump in the left breast, unspecified quadrant Code(s): N63.20 - Unspecified lump in the left breast, unspecified quadrant Status: Acute Assessment and Plan: Patient established with an oncologist. Recommend outpatient follow-up with oncologist Subjective Date/time seen: 04/28/22 10:07 Patient reports retrosternal chest pain and some epigastric tenderness Review of Systems Review of Systems: 12 systems were reviewed with pertinent positives and negatives per HPI. Except as documented in the HPI, all other systems were reviewed and are negative. Exam Const: Other: well-developed well-nourished HENMT: Other: no oral pharyngeal erythema, head is normocephalic atraumatic Eyes: Other: Pupils are equal and reactive, no scleral icterus, positive conjunctival pallor Neck: Other: No JVD, no anterior cervical lymphadenopathy, trachea midline Chest: Other: Palpable tenderness over the left chest wall and left lateral breast with associated the firm mass correlating with the size of area of abnormality on CT scan of the chest with overlying skin puckering and anatomic distortion. Patient reports tenderness is new. Resp: Other: Crackles at the bases, conversational tachypnea, nasal cannula in place Cardio: Other: Regular rate, regular rhythm, 2+ bilateral radial pedal pulses, no murmurs GI: Other: Tender in epigastric region voluntary guarding, no rebound, normoactive bowel sounds, no gross organomegaly noted : Other: Continent of urine Back/Spine/Pelvis: Other: No reproducible tenderness palpation Skin: Other: Generalized pallor, non jaundice, marked bruising of bilateral knees, bruise to the right lateral hip Neuro: Other: Alert oriented, speech is clear, no facial asymmetry Extrem: Other: Bilateral lower extremity edema left greater than right, edema of the right leg trace edema left leg 1+ pitting, marked bruising to bilateral knees left greater than right with associated effusion of the left knee with chronic age-related arthritic changes of the left knee noted Objective Data Vital Signs Vital Signs: Vital Signs - 24
--- NOTE | 2022-04-28 11:24 | PM.CNCAR ---
Assessment and Plan Assessment and plan (1) Non-STEMI (non-ST elevated myocardial infarction): Code(s): I21.4 - Non-ST elevation (NSTEMI) myocardial infarction Status: Acute Assessment and Plan: This could be a takotsubo situation but given her CAD history, assumption should be that she is having an acute plaque rupture. She has refused heparinization because of her history of bleeding GI polyps. This is overall complicated situation given the fact she has left breast mass, renal cell carcinoma which is yet to be treated as well as bleeding GI polyps. Obviously if catheterization were to be performed with stenting, would complicate her workup for breast mass as well as renal cell. Obviously a bare metal stent could be placed which would minimize need long-term dual anti-platelet therapy. Initial in immediate plans will be to keep NPO after midnight for coronary angiogram tomorrow. Continue aspirin 81 mg daily. Continue metoprolol succinate 25 mg daily, atorvastatin 40 mg daily. Will order nitroglycerin paste 1 in Q 6 hours. If agreeable, we will initiate heparin and pay very close attention to evidence of bleeding. 2D echocardiogram with Doppler be ordered and reviewed. (2) Left breast mass: Qualifiers: Breast mass location: unspecified quadrant Qualified Code(s): N63.20 - Unspecified lump in the left breast, unspecified quadrant Code(s): N63.20 - Unspecified lump in the left breast, unspecified quadrant Status: Acute Assessment and Plan: Awaiting workup (3) Renal mass: Code(s): N28.89 - Other specified disorders of kidney and ureter Status: Acute Assessment and Plan: Has an appointment scheduled with Dr. Viramontes in early May (4) PAF (paroxysmal atrial fibrillation): Code(s): I48.0 - Paroxysmal atrial fibrillation Status: Acute Assessment and Plan: Status post Watchman. On amiodarone which should be stopped given her cirrhosis which is a recent diagnosis. I will discontinue amiodarone at this point. (5) Pulmonary edema: Qualifiers: Chronicity: acute Qualified Code(s): J81.0 - Acute pulmonary edema Code(s): J81.1 - Chronic pulmonary edema Status: Acute Assessment and Plan: Furosemide 20 mg IV daily to be started (6) CAD (coronary artery disease): Code(s): I25.10 - Atherosclerotic heart disease of [place] coronary artery without angina pectoris Status: Acute Assessment and Plan: As above (7) Hypertension: Code(s): I10 - Essential (primary) hypertension Status: Acute Assessment and Plan: Controlled (8) Cirrhosis: Code(s): K74.60 - Unspecified cirrhosis of liver Status: Acute Assessment and Plan: Recent diagnosis (9) GI bleed: Code(s): K92.2 - Gastrointestinal hemorrhage, unspecified Status: Acute Assessment and Plan: History of multiple bleeding gastric polyps History of Present Illness History of Present Illness Consult date/time: 04/28/22 11:24 Reason For Visit: Elevated Troponin Narrative: Date of service 04/28/2022 Reason consultation: Elevated troponin, back pain Requesting provider: Dr. Cisneros History: Patient is a 77-year-old female patient Dr. Moses who has a history of atrial fibrillation status post Watchman. She also has LAD stent in 2019. She has a multitude of other concerning issues at this point including a left renal cell carcinoma and she is scheduled to see urology in early May. She fell last Monday and since then has had progressively worsening balance issues and dizziness and lightheadedness. She however yesterday due to issues of nausea vomiting and generalized weakness and lack of balance called 911. Whenever she was in the ambulance she started to develop back pain. Pain was significant radiating across her shoulders. She was also quite short of breath. She came to the hospital
[2022-04-28 12:32] LABS: Glucose Point of Care 147 mg/dl (65-105)
[2022-04-28] MEDS: FUROSEMIDE INJ 40 MG/4 ML VIAL 20 MG IV PUSH (15:09)
[2022-04-28] MEDS: PANTOPRAZOLE SODIUM IV 40 MG VIAL IV PUSH (17:31)
[2022-04-28 18:13] LABS: Glucose Point of Care 246 mg/dl (65-105)
[2022-04-28] MEDS: INSULIN ASPART (*BKC) 100 UNITS/ML SUB-Q (18:22)
[2022-04-28] MEDS: ATORVASTATIN 40 MG TABLET PO (20:41)
[2022-04-28] MEDS: TAMOXIFEN CITRATE (*CHEMO) 10 MG TABLET 20 MG PO (20:42)
[2022-04-28] MEDS: SALINE LOCK FLUSH 10 ML IV PUSH (20:43)
[2022-04-28 22:53] LABS: Glucose Point of Care 179 mg/dl (65-105)
[2022-04-29] VITALS (22 sets, daily range): BP systolic 101–141; BP diastolic 29–80; PULSE 73–91; RESP 12–22; TEMP 36.2–36.7; O2SAT 90–96; BMI 28.0
--- NOTE | 2022-04-29 | ECHO_ITS ---
Patient Info Name: Jackie Waddell Age: 77 years : 1945 Gender: Female Ht: 62 in Wt: 153 lbs BSA: 1.76 m2 HR: 79 bpm BP: 115 / 58 mmHg Heart Rhythm: Sinus Rhythm Technical Quality: Fair Exam Date: 04/29/2022 1:17 PM Exam Location: [facility] Pulmonary Patient Status: Inpatient Admit Date: 04/28/2022 Staff Ordering Physician: Yousuf Rankin MD Relationship Mgr: Mackenzie Knott RDCS Attending Provider: Jose Dubois MD Referring Physician: Massiel LLOYD; Exam Type: CA echo doppler color flow Study Info Indications - Non- STEMI Complete two-dimensional, color flow and Doppler transthoracic echocardiogram is performed. Summary 1. Complete two-dimensional, color flow and Doppler transthoracic echocardiogram is performed. 2. Left ventricular systolic function is severely reduced, estimated at 20-25%. 3. There is hypokinesis of the mid inferoseptum and mid inferolateral esteban. There is akinesis of the apical septum, apical cap, apical lateral, mid anteroseptum, and mid anterolateral esteban. Regional wall motion abnormalities consistent with either an LAD infarction or takotsubo cardiomyopathy. 4. Right ventricular systolic function is normal. 5. Right atrial chamber dimension is mildly enlarged. 6. There is moderate aortic valve calcification. 7. There is mild to moderate aortic valve regurgitation. 8. The mitral valve annulus is severely calcified. 9. The mitral valve has thickened leaflets. 10. There is trace mitral valve regurgitation. 11. There is moderate tricuspid valve regurgitation. 12. Dilated inferior vena cava with no collapse upon inspiration consistent with elevated right atrial pressure, 15 mmHg. 13. Left pleural effusion is present. Left Ventricle There is hypokinesis of the mid inferoseptum and mid inferolateral esteban. There is akinesis of the apical septum, apical cap, apical lateral, mid anteroseptum, and mid anterolateral esteban. Regional wall motion abnormalities consistent with either an LAD infarction or takotsubo cardiomyopathy. Left ventricular chamber dimension is normal. Left ventricular systolic function is severely reduced, estimated at 20-25%. There is no increased left ventricular wall thickness. Right Ventricle Right ventricular chamber dimension is normal. Right ventricular systolic function is normal. Left Atria Left atrial chamber dimension is normal. Right Atria Right atrial chamber dimension is mildly enlarged. Atrial Septum Intact interatrial septum visualized by color flow imaging. Aortic Valve The aortic valve is trileaflet. There is no aortic valve stenosis. There is mild to moderate aortic valve regurgitation. There is moderate aortic valve calcification. Pulmonic Valve The pulmonic valve is not well visualized. There is trace pulmonic regurgitation. Mitral Valve The mitral valve has thickened leaflets. There is no mitral valve stenosis. There is trace mitral valve regurgitation. The mitral valve annulus is severely calcified. Tricuspid Valve The tricuspid valve leaflets are normal. There is no significant tricuspid valve stenosis. There is moderate tricuspid valve regurgitation. Pericardium/Pleural Left pleural effusion is present. There is no pericardial effusion. Inferior Vena Cava Dilated inferior vena cava with no collapse upon inspiration consistent with elevated right atrial pressure, 15 mmHg. Aorta The aortic root size at the sinus of Valsalva is normal. Left
[2022-04-29] MEDS: SALINE LOCK FLUSH 10 ML IV PUSH ×3 (05:32→20:40)
[2022-04-29] MEDS: NITROGLYCERIN OINTMENT 1 INCH DOSE TRANSDERM (05:32)
[2022-04-29] MEDS: PANTOPRAZOLE SODIUM IV 40 MG VIAL IV PUSH ×2 (08:26→17:11)
[2022-04-29] MEDS: ASPIRIN 325 MG ENTERIC TABLET PO (08:27)
[2022-04-29] MEDS: THERAPEUTIC MULTIVITAMINS/MINERALS TAB (*BKC) 1 TABLET PO (08:27)
[2022-04-29] MEDS: OMEGA 3 POLYUNSAT FATTY ACIDS 1 GM CAP PO (08:27)
[2022-04-29] MEDS: ACIDOPHILUS/BULGARICUS CHEWABLE TABLET 1 TABLET BY MOUTH (08:27)
[2022-04-29] MEDS: FERROUS SULFATE 324 MG TABLET PO (08:27)
[2022-04-29] MEDS: METOPROLOL SUCCINATE EXT REL 25 MG TABCR PO (08:28)
[2022-04-29] MEDS: CLOPIDOGREL BISULFATE 300 MG TABLET 600 MG PO (09:24)
--- NOTE | 2022-04-29 09:34 | PM.PNCARD ---
Progress Note: A&P Assessment and Plan (1) Non-STEMI (non-ST elevated myocardial infarction): Code(s): I21.4 - Non-ST elevation (NSTEMI) myocardial infarction Status: Acute Assessment and Plan: This could be a takotsubo situation but given her CAD history, assumption should be that she is having an acute plaque rupture.? She has refused heparinization on admission because of her history of bleeding GI polyps.? This is overall complicated situation given the fact she has left breast mass, renal cell carcinoma which is yet to be treated as well as history of bleeding GI polyps. Continue aspirin 81 mg daily.? Continue metoprolol succinate 25 mg daily, atorvastatin 40 mg daily. 2D echocardiogram with Doppler be ordered and reviewed. Patient is now agreeable to receiving Heparin. Currently has no bleeding issues. Will perform cardiac cath this AM. Further recommendations pending results of cardiac cath. Monitor closely for any bleeding issues. (2) PAF (paroxysmal atrial fibrillation): Code(s): I48.0 - Paroxysmal atrial fibrillation Status: Acute Assessment and Plan: S/p Watchman. Given recent diagnosis of cirrhosis, we stopped her Amiodarone. (3) Cirrhosis: Code(s): K74.60 - Unspecified cirrhosis of liver Status: Acute Assessment and Plan: Recent diagnosis. Management as per hospitalist. (4) GI bleed: Code(s): K92.2 - Gastrointestinal hemorrhage, unspecified Status: Acute Assessment and Plan: History of multiple bleeding gastric polyps. Subjective Date/time seen: 04/29/22 09:34 Interval history: Reason For Visit: NSTEMI History: Patient is a 77-year-old female patient Dr. Moses who has a history of atrial fibrillation status post Watchman.? She also has LAD stent in 2019.? She has a multitude of other concerning issues at this point including a left renal cell carcinoma and she is scheduled to see urology in early May.? She fell last Monday and since then has had progressively worsening balance issues and dizziness and lightheadedness.? She however yesterday due to issues of nausea vomiting and generalized weakness and lack of balance called 911.? Whenever she was in the ambulance she started to develop back pain.? Pain was significant radiating across her shoulders.? She was also quite short of breath.? She came to the hospital for further workup evaluation.? Troponins were elevated.? EKG did not show any acute abnormalities.? Eventually she agreed to take nitroglycerin and was given furosemide.? Symptoms of back and shoulder pain as well as shortness of breath did improve with nitro.? CT scan of the chest was performed which did not show any pulmonary embolism Date of service 04/29/2022: Patient is now agreeable to receive Heparin and undergo cardiac cath. Patient states she is feeling better since admission. Denies chest pain. Denies shortness of breath this AM. Review of Systems Review of Systems: 8-point ROS obtained this AM. Negative, unless stated in HPI. Exam Narrative: Awake alert oriented appears stated age Const: General: comfortable and no acute distress; No in distress HENMT: Mouth: Yes moist mucous membranes Eyes: General: appearance normal, both eyes and all related structures Sclera: sclerae normal Neck: Neck: supple Chest: Other: No reproducible chest wall pain to palpation Resp: Effort & Inspection: normal respiratory effort Auscultation: clear to auscultation bilaterally Cardio: Rate: regular rate Rhythm: regular rhythm Heart sounds: no murmurs GI: Inspection: non-distended GI Palp: Yes Soft to palpation and No Tenderness to palpation present (GI) Skin: General skin exam: normal color Neuro: Speech: normal speech Motor exam (neuro): 5/5 motor strength present throughout Extrem: General: normal to inspection Psych: Mental Status: mental status grossly normal Affect: normal affect Objective Data Vital Sign
--- NOTE | 2022-04-29 10:16 | PM.IMPN ---
Progress Note: A&P Assessment and Plan (1) Non-STEMI (non-ST elevated myocardial infarction): Code(s): I21.4 - Non-ST elevation (NSTEMI) myocardial infarction Status: Acute Assessment and Plan: Stat CTA of the chest was performed was negative for pulmonary embolism but did show pulmonary edema. Patient received Lasix and nitroglycerin with improvement in symptoms of both hypoxia and back pain. Patient's troponin did continue to rise despite the treatment of the symptoms. Cardiology has been consulted. patient agreeable to anticoagulation with heparin. Plan for cardiac catheterization today. (2) Pulmonary edema: Qualifiers: Chronicity: acute Qualified Code(s): J81.0 - Acute pulmonary edema Code(s): J81.1 - Chronic pulmonary edema Status: Acute Assessment and Plan: Will monitor blood pressure closely. (3) Cirrhosis: Code(s): K74.60 - Unspecified cirrhosis of liver Status: Acute Assessment and Plan: Patient will need follow-up with Gastroenterology as outpatient specially in the setting of recent diagnosis of cirrhosis. cirrhosis is likely due to steatohepatitis verses prior history of chemotherapy regimens. Patient does not have a history of alcohol use. (4) Esophagitis with gastritis: Code(s): K29.70 - Gastritis, unspecified, without bleeding; K20.90 - Esophagitis, unspecified without bleeding Status: Acute Assessment and Plan: Continue PPI IV b.i.d. (5) Left breast mass: Qualifiers: Breast mass location: unspecified quadrant Qualified Code(s): N63.20 - Unspecified lump in the left breast, unspecified quadrant Code(s): N63.20 - Unspecified lump in the left breast, unspecified quadrant Status: Acute Assessment and Plan: Patient established with an oncologist. Recommend outpatient follow-up with oncologist Subjective Date/time seen: 04/29/22 10:16 No chest pain this morning. No shortness of breaths Review of Systems Review of Systems: 8-point ROS obtained this AM. Negative, unless stated in HPI. Exam Narrative: Awake alert oriented appears stated age Const: General: comfortable and no acute distress; No in distress HENMT: Mouth: Yes moist mucous membranes Eyes: General: appearance normal, both eyes and all related structures Sclera: sclerae normal Neck: Neck: supple Chest: Other: No reproducible chest wall pain to palpation Resp: Effort & Inspection: normal respiratory effort Auscultation: clear to auscultation bilaterally Cardio: Rate: regular rate Rhythm: regular rhythm Heart sounds: no murmurs GI: Inspection: non-distended GI Palp: Yes Soft to palpation and No Tenderness to palpation present (GI) Skin: General skin exam: normal color Neuro: Speech: normal speech Motor exam (neuro): 5/5 motor strength present throughout Extrem: General: normal to inspection Psych: Mental Status: mental status grossly normal Affect: normal affect Objective Data Vital Signs Vital Signs: Vital Signs - 24 hr 04/28/22 12:00 04/28/22 12:00 04/28/22 14:00 Temperature 98.2 F Pulse Rate 69 66 89 Respiratory Rate 24 H Blood Pressure 104/62 Pulse Oximetry 94 Oxygen Delivery Oxygen Flow Rate 04/28/22 12:00 04/28/22 16:00 04/28/22 16:00 Temperature Pulse Rate 77 Respiratory Rate Blood Pressure Pulse Oximetry 94 94 Oxygen Delivery Nasal Cannula Nasal Cannula Oxygen Flow Rate 3 3 04/28/22 16:00 04/28/22 18:00 04/28/22 19:50 Temperature 97.7 F 98.0 F Pulse Rate 76 75 75 Respiratory Rate 16 18 Blood Pressure 134/56 L 108/53 L Pulse Oximetry 96 97 Oxygen Delivery Oxygen Flow Rate 04/28/22 20:00 04/28/22 20:00 04/28/22 22:58 Temperature 98.0 F Pulse Rate 77 77 80 Respiratory Rate 18 18 Blood Pressure 104/53 L Pulse Oximetry 97 96 Oxygen Delivery Nasal Cannula Oxygen Flow Rate 3 04/28/22 22:00 04/29/22
--- NOTE | 2022-04-29 10:36 | WPDMODSED ---
Moderate Sedation Note-Pt Data Patient Data Diagnosis: NSTEMI Present Complaint: NSTEMI Procedure to be performed/Plan: Coronary angiography, [facility] Allergies Allergy/AdvReac Type Severity Reaction Status Date / Time No Known Allergies Allergy Verified 04/27/22 18:01 Home Medications Medication Instructions Recorded Confirmed Type atorvastatin 40 mg tablet 40 mg PO HS 04/30/19 04/27/22 History tamoxifen 20 mg tablet 20 mg PO HS 04/30/19 04/27/22 History furosemide 20 mg tablet 20 mg PO QAM 06/18/20 04/27/22 History ascorbic acid (vitamin C) 250 mg 1,000 mg PO DAILY 09/29/20 04/27/22 History tablet ferrous sulfate 325 mg (65 mg 325 mg PO BID 09/29/20 04/27/22 History iron) tablet (Iron (ferrous sulfate)) aspirin 325 mg tablet,delayed 325 mg PO DAILY #1 tablet 01/08/21 04/27/22 Rx release lactobacillus combination no.4 3 3,000 mmu cells PO DAILY 05/18/21 04/27/22 History billion cell capsule (Probiotic) multivitamin with minerals-folic 1 tablet PO DAILY 11/02/21 04/27/22 History acid 0.4 mg tablet omega 0-dzm-jdu-fish oil 1,000 mg 1 cap PO DAILY 11/02/21 04/27/22 History (120 mg-180 mg) capsule (Fish Oil) calcium polycarbophil 625 mg 1,250 mg PO BID PRN Constipation 01/10/22 04/27/22 History tablet (FiberCon) semaglutide 3 mg tablet (Rybelsus) 3 mg PO DAILY #90 tabs 01/27/22 04/27/22 Rx amiodarone 400 mg tablet 400 mg PO DAILY 03/01/22 04/27/22 History metoprolol succinate 25 mg capsule 25 mg PO DAILY 03/21/22 04/27/22 History sprinkle, ext. release 24 hr pantoprazole 40 mg tablet,delayed 40 mg PO QAM #90 tabs 04/05/22 04/27/22 Rx release metformin 1,000 mg tablet 1,000 mg PO BID #90 tabs 04/06/22 04/27/22 Rx Current Medications: Active Medications Acetaminophen (Acetaminophen 500 Mg Tablet) 500 mg PO Q4H PRN PRN Reason: Mild Pain (1-3) or Fever Last Admin: 04/28/22 20:42 Dose: 500 mg Aspirin (Aspirin 325 Mg Enteric Tablet) 325 mg PO DAILY [facility] Last Admin: 04/29/22 08:27 Dose: 325 mg Atorvastatin Calcium (Atorvastatin 40 Mg Tablet) 40 mg PO HS [facility] Last Admin: 04/28/22 20:41 Dose: 40 mg Calcium Polycarbophil (Calcium Polycarbophil 625 Mg Tablet) 1,250 mg PO BID PRN PRN Reason: Constipation Dextrose (Dextrose 50% 25 Gm/50 Ml Syringe) 12.5 gm IV PUSH PRN PRN; Protocol PRN Reason: Hypoglycemia Ferrous Sulfate (Ferrous Sulfate 324 Mg Tablet) 324 mg PO DAILY@0800 [facility] Last Admin: 04/29/22 08:27 Dose: 324 mg Fish Oil ([place] 3 Polyunsat Fatty Acids 1 Gm Cap) 1 gm PO DAILY [facility] Last Admin: 04/29/22 08:27 Dose: 1 gm Furosemide (Furosemide Inj 40 Mg/4 Ml Vial) 20 mg IV PUSH DAILY [facility] Last Admin: 04/29/22 08:06 Dose: Not Given Glucagon (Glucagon For Inj 1 Mg Vial) 1 mg IM PRN PRN; Protocol PRN Reason: Hypoglycemia Glucose (Glucose Oral Gel 15 Gm Of Glucse In 37.5 Gm Tube) 15 gm PO PRN PRN; Protocol PRN Reason: Hypoglycemia Dextrose (Dextrose 5% 1,000 Ml) 1,000 mls @ 100 mls/hr IVPB PRN PRN; Protocol PRN Reason: Hypoglycemia Insulin Aspart (Insulin Aspart (*Bkc) 100 Units/Ml) 2 - 5 units SUB-Q Q6HR [facility]; Protocol Last Admin: 04/29/22 08:06 Dose: Not Given Lactobacillus Acidophilus (Acidophilus/Bulgaricus Chewable Tablet) 1 tablet BY MOUTH DAILY [facility] Last Admin: 04/29/22 08:27 Dose: 1 tablet Metoprolol Succinate (Metoprolol Succinate Ext Rel 25 Mg Tabcr) 25 mg PO DAILY [facility] Last Admin: 04/29/22 08:28 Dose: 25 mg Multivitamins/Calcium (Therapeutic Multivitamins/Minerals Tab (*Bkc)) 1 tablet PO DAILY [facility] Last Admin: 04/29/22 08:27 Dose: 1 tablet Nitroglycerin (Nitroglycerin Sl 0.4 Mg Tablet) 0.4 mg SUBLINGUAL Q5MIN PRN PRN Reason: Chest Pain Nitroglycerin (Nitroglycerin Ointment 1 Inch Dose) 1 inch TRANSDERM Q6HR [facility] Last Admin: 04/29/22 05:32 Dose: 1 inch Pantoprazole Sodium (Pantoprazole Sodium Iv 40 Mg Vial) 40 mg IV PUSH BID [facility] Last Admin: 04/29/22 08:26 Dose: 40 mg Perflutren Lipid Microsphere (Perflutren Lipid Microspheres
--- NOTE | 2022-04-29 10:38 | WPDCARDPROC ---
Cardiac Cath Procedure Note Date of procedure:: 04/29/22 Performing physician:: CATHETERIZATION LABORATORY REPORT Procedure Date: 04/29/2022 Needle Polisher: Maria Isabel Cesar M.D., [facility]? Referring Physician: Jay Rankin M.D.? Anesthesia: Versed and Fentanyl were ordered and given in my presence at 10:00, procedure ended at 10:20. Supervision of nurse monitored moderate sedation with Versed and Fentanyl was provided for 20 minutes. Total of Versed 2mg and Fentanyl 50mcg were administered by the [employer] RN Myesha Hill. Pre-op Diagnosis: NSTEMI Post-op Diagnosis: Non-obstructive coronary artery disease with patent proximal LAD stent Significantly elevated left ventricular end-diastolic pressure of 41mmHg Procedure(s): Left heart catheterization with coronary angiography Access Site: Right radial artery Brief History and Clinical Indications: Patient is a 77-year-old female with a history of CAD s/p LAD stent, atrial fibrillation s/p Watchman who is referred for [facility] for NSTEMI. All risks, benefits and alternatives to left heart catheterization with or without percutaneous coronary intervention was discussed at length with the patient. Risk of complications including but not limited to bleeding, infection, arrhythmia, stroke, worsening kidney function, blood loss, groin hematoma, limb loss, emergency coronary artery bypass grafting, and even were discussed with the patient and all questions were answered. The patient understood and wished to proceed. Time out called, patient name, date of , medical record number, allergies, procedure performed, identify Needle Polisher, patient and staff member concurred with accurate data, procedure carried on. Findings: LEFT HEART CATHETERIZATION FINDINGS: 1. Left main: The left main coronary artery is widely patent without any significant obstructive disease. 2. Left anterior descending: Patent stent in the proximal LAD. The mid LAD appears to have a myocardial bridge. Rest of the LAD has mild diffuse disease without any significant obstructive angiographic disease. No obstructive disease in diagonal branches. 3. Left circumflex: The left circumflex artery and the main marginal branches have mild diffuse disease without any significant obstructive angiographic disease. 4. Right coronary artery: The RCA is a heavily calcified vessel. The RCA is the dominant vessel. The RCA is ectatic in its mid portion. The RCA has mild diffuse disease without any significant obstructive angiographic disease. 5. Left ventricle: A. End-diastolic pressure 41mmHg. B. LV gram deferred. C. No significant gradient across aortic valve on catheter pullback. Description of Procedure: Informed consent signed and placed in the chart. Patient transferred to [employer] room. Prepped and draped in usual sterile fashion. 2% lidocaine injected subcutaneously in right wrist area. 22-gauge venipuncture catheter used to access the right radial artery with the Seldinger technique. 6-FR slender sheath placed in right radial artery. Nitroglycerine and Verapamil were given intraarterial through the sheath. Versacore wire advanced under fluoroscopy 5F Tig 4 diagnostic catheter engaged Left Main Coronary Artery. 5F Tig 4 diagnostic catheter engaged Right Coronary Artery Multiple orthogonal angiogram obtained and reviewed 5F Tig 4 diagnostic catheter crossed aortic valve to obtain LVEDP, LV angiogram deferred. Hemostasis was achieved by application of TR band. Assessment: Non-obstructive coronary artery disease with patent proximal LAD stent Significantly elevated left ventricular end-diastolic pressure of 41mmHg Post Operative Condition: Stable No significant blood loss Disposition: Floor Plan: The patient will be monitored in the recovery area. The above findings were discussed with the referring physician. Continue aggressive medical therapy and risk factor modification. Given high LVEDP, continue
[2022-04-29] MEDS: FUROSEMIDE INJ 40 MG/4 ML VIAL 20 MG IV PUSH ×2 (10:53→17:10)
[2022-04-29 12:42] LABS: Glucose Point of Care 156 mg/dl (65-105)
[2022-04-29] MEDS: TOLNAFTATE 1% POWDER 45 GM BTL 1 APPLIC TOPICAL ×2 (12:46→20:40)
[2022-04-29 17:05] LABS: Glucose Point of Care 164 mg/dl (65-105)
[2022-04-29] MEDS: SACUBITRIL/VALSARTAN 24-26 MG TABLET 1 TAB PO (20:39)
[2022-04-29] MEDS: ATORVASTATIN 40 MG TABLET PO (20:39)
[2022-04-29] MEDS: TAMOXIFEN CITRATE (*CHEMO) 10 MG TABLET 20 MG PO (20:39)
[2022-04-29 20:44] LABS: Glucose Point of Care 198 mg/dl (65-105)
[2022-04-30] VITALS (16 sets, daily range): BP systolic 107–135; BP diastolic 43–95; PULSE 71–94; RESP 14–22; TEMP 36.6–36.9; O2SAT 91–95
[2022-04-30] MEDS: SALINE LOCK FLUSH 10 ML IV PUSH ×3 (07:02→21:04)
--- NOTE | 2022-04-30 07:44 | PM.IMPN ---
Progress Note: A&P Assessment and Plan (1) Non-STEMI (non-ST elevated myocardial infarction): Code(s): I21.4 - Non-ST elevation (NSTEMI) myocardial infarction Status: Acute Assessment and Plan: cardiology suspecting Takotsubo cardiomyopathy continue Entresto, Jardiance, Toprol, Aldactone (2) Pulmonary edema: Qualifiers: Chronicity: acute Qualified Code(s): J81.0 - Acute pulmonary edema Code(s): J81.1 - Chronic pulmonary edema Status: Acute Assessment and Plan: monitor, improving (3) Cirrhosis: Code(s): K74.60 - Unspecified cirrhosis of liver Status: Acute Assessment and Plan: follow-up with GI outpatient, stable (4) Esophagitis with gastritis: Code(s): K29.70 - Gastritis, unspecified, without bleeding; K20.90 - Esophagitis, unspecified without bleeding Status: Acute Assessment and Plan: continue PPI (5) Left breast mass: Qualifiers: Breast mass location: unspecified quadrant Qualified Code(s): N63.20 - Unspecified lump in the left breast, unspecified quadrant Code(s): N63.20 - Unspecified lump in the left breast, unspecified quadrant Status: Acute Assessment and Plan: follow-up with outpatient oncologist Plan DVT prophylaxis with SCDs GI prophylaxis with PPI Code status full code Subjective Date/time seen: 04/30/22 07:44 Interval history: No overnight events noted. No chest pain or shortness of breath. No nausea, vomiting or diarrhea. No fevers or chills. Review of Systems Review of Systems: 12 point review of systems was assessed and was negative except as noted in the HPI Exam Narrative: General: No acute distress, alert and oriented per baseline HEENT: Atraumatic, normocephalic, mucous membranes moist CV: Regular rate and rhythm, S1, S2 Lungs: Clear to auscultation bilaterally, no rales or crackles noted, no wheezes, good air entry Abdomen: Soft, nontender, nondistended Extremities: Normal to inspection Skin: No rashes noted, no lesions or wounds seen Psych: Euthymic, normal affect Objective Data Vital Signs Vital Signs: Vital Signs - 24 hr 04/29/22 08:28 04/29/22 08:00 04/29/22 10:43 Temperature 97.4 F L Pulse Rate 91 82 77 Respiratory Rate 18 19 Blood Pressure 117/65 115/64 Pulse Oximetry 96 90 Oxygen Delivery Nasal Cannula Oxygen Flow Rate 6 04/29/22 10:45 04/29/22 11:00 04/29/22 11:15 Temperature Pulse Rate 78 77 75 Respiratory Rate 18 20 20 Blood Pressure 113/73 130/58 L 136/53 L Pulse Oximetry 91 91 90 Oxygen Delivery Nasal Cannula Nasal Cannula Nasal Cannula Oxygen Flow Rate 6 6 6 04/29/22 11:30 04/29/22 11:45 04/29/22 12:15 Temperature Pulse Rate 74 74 76 Respiratory Rate 21 H 20 22 H Blood Pressure 140/51 L 137/48 L 101/80 Pulse Oximetry 91 91 92 Oxygen Delivery Nasal Cannula Nasal Cannula Nasal Cannula Oxygen Flow Rate 4 4 3 04/29/22 12:00 04/29/22 12:30 04/29/22 13:00 Temperature 97.3 F L 97.9 F Pulse Rate 78 77 75 Respiratory Rate 16 16 18 Blood Pressure 140/35 L 141/44 H 139/46 L Pulse Oximetry 92 96 95 Oxygen Delivery Nasal Cannula Oxygen Flow Rate 3 04/29/22 14:00 04/29/22 15:00 04/29/22 08:00 Temperature 97.8 F 97.5 F L Pulse Rate 73 74 79 Respiratory Rate 16 16 Blood Pressure 116/54 L 123/52 L Pulse Oximetry 94 95 Oxygen Delivery Oxygen Flow Rate 04/29/22 14:00 04/29/22 08:00 04/29/22 12:30 Temperature Pulse Rate 76 Respiratory Rate Blood Pressure Pulse Oximetry 92 95 Oxygen Delivery Nasal Cannula Nasal Cannula Oxygen Flow Rate 3 3 04/29/22 16:00 04/29/22 16:00 04/29/22 16:00 Temperature 97.2 F L Pulse Rate 73 74 Respiratory Rate 12 Blood Pressure 109/62 Pulse Oximetry 94 95 Oxygen Delivery Nasal Cannula Oxygen Flow Rate 1 04/29/22 18:00 04/29/22 20:00 04/29/22 20:00 Temperature 98.0 F Pulse Rate 79 79 79 Respirato
[2022-04-30 08:36] LABS: Glucose Point of Care 157 mg/dl (65-105)
[2022-04-30] MEDS: FERROUS SULFATE 324 MG TABLET PO (09:07)
[2022-04-30] MEDS: EMPAGLIFLOZIN 10 MG TABLET PO (09:07)
[2022-04-30] MEDS: ASPIRIN 81 MG ENTERIC TABLET PO (09:07)
[2022-04-30] MEDS: METOPROLOL SUCCINATE EXT REL 25 MG TABCR PO (09:07)
[2022-04-30] MEDS: ACIDOPHILUS/BULGARICUS CHEWABLE TABLET 1 TABLET BY MOUTH (09:07)
[2022-04-30] MEDS: PANTOPRAZOLE SODIUM IV 40 MG VIAL IV PUSH ×2 (09:08→17:37)
[2022-04-30] MEDS: THERAPEUTIC MULTIVITAMINS/MINERALS TAB (*BKC) 1 TABLET PO (09:08)
[2022-04-30] MEDS: OMEGA 3 POLYUNSAT FATTY ACIDS 1 GM CAP PO (09:08)
[2022-04-30] MEDS: TOLNAFTATE 1% POWDER 45 GM BTL 1 APPLIC TOPICAL ×2 (09:08→21:03)
[2022-04-30] MEDS: SACUBITRIL/VALSARTAN 24-26 MG TABLET 1 TAB PO ×2 (09:09→21:03)
[2022-04-30] MEDS: FUROSEMIDE INJ 40 MG/4 ML VIAL 20 MG IV PUSH ×2 (10:04→17:37)
--- NOTE | 2022-04-30 11:09 | PM.PNCARD ---
Progress Note: A&P Assessment and Plan (1) Non-STEMI (non-ST elevated myocardial infarction): Code(s): I21.4 - Non-ST elevation (NSTEMI) myocardial infarction Status: Acute Assessment and Plan: Cardiac cath showed nonobstructive coronary artery disease with patent LAD stent. This appears to be takotsubo cardiomyopathy now. LVEDP is significantly elevated at 41mmHg. TTE 04/29 showed: 1. Complete two-dimensional, color flow and Doppler transthoracic echocardiogram is performed. 2. Left ventricular systolic function is severely reduced, estimated at 20-25%. 3. There is hypokinesis of the mid inferoseptum and mid inferolateral esteban. There is akinesis of the apical septum, apical cap, apical lateral, mid anteroseptum, and mid anterolateral esteban. Regional wall motion abnormalities consistent with either an LAD infarction or takotsubo cardiomyopathy. 4. Right ventricular systolic function is normal. 5. Right atrial chamber dimension is mildly enlarged. 6. There is moderate aortic valve calcification. 7. There is mild to moderate aortic valve regurgitation. 8. The mitral valve annulus is severely calcified. 9. The mitral valve has thickened leaflets. 10. There is trace mitral valve regurgitation. 11. There is moderate tricuspid valve regurgitation. 12. Dilated inferior vena cava with no collapse upon inspiration consistent with elevated right atrial pressure, 15 mmHg. 13. Left pleural effusion is present. Started low-dose Entresto and Jardiance yesterday afternoon, tolerating well. BP stable. Continue with Toprol. Continue with current doses of Entresto and Jardiance. Will add low-dose Aldactone today. (2) PAF (paroxysmal atrial fibrillation): Code(s): I48.0 - Paroxysmal atrial fibrillation Status: Acute Assessment and Plan: S/p Watchman. Given recent diagnosis of cirrhosis, we stopped her Amiodarone. (3) Cirrhosis: Code(s): K74.60 - Unspecified cirrhosis of liver Status: Acute Assessment and Plan: Recent diagnosis. Management as per hospitalist. (4) GI bleed: Code(s): K92.2 - Gastrointestinal hemorrhage, unspecified Status: Acute Assessment and Plan: History of multiple bleeding gastric polyps. (5) Heart failure with reduced ejection fraction: Code(s): I50.20 - Unspecified systolic (congestive) heart failure Status: Acute Plan Cardiac cath showed nonobstructive coronary artery disease with patent LAD stent. This appears to be takotsubo cardiomyopathy now. LVEDP is significantly elevated at 41mmHg. TTE 04/29 showed: 1. Complete two-dimensional, color flow and Doppler transthoracic echocardiogram is performed. 2. Left ventricular systolic function is severely reduced, estimated at 20-25%. 3. There is hypokinesis of the mid inferoseptum and mid inferolateral esteban. There is akinesis of the apical septum, apical cap, apical lateral, mid anteroseptum, and mid anterolateral esteban. Regional wall motion abnormalities consistent with either an LAD infarction or takotsubo cardiomyopathy. 4. Right ventricular systolic function is normal. 5. Right atrial chamber dimension is mildly enlarged. 6. There is moderate aortic valve calcification. 7. There is mild to moderate aortic valve regurgitation. 8. The mitral valve annulus is severely calcified. 9. The mitral valve has thickened leaflets. 10. There is trace mitral valve regurgitation. 11. There is moderate tricuspid valve regurgitation. 12. Dilated inferior vena cava with no collapse upon inspiration consistent with elevated right atrial pressure, 15 mmHg. 13. Left pleural effusion is present. Started low-dose Entresto and Jardiance yesterday afternoon, tolerating well. BP stable. Continue with Toprol. Continue with current doses of Entresto and Jardiance. Will add low-dose Aldactone today. Continue with diuresis for now, monitor I/Os. Wean off supplemental oxygen. For CAD, continue with ASA and statin. Subj
[2022-04-30] MEDS: SPIRONOLACTONE 12.5 MG TABLET PO (11:59)
[2022-04-30] MEDS: INSULIN ASPART (*BKC) 100 UNITS/ML SUB-Q ×2 (12:00→17:38)
[2022-04-30 12:53] LABS: Glucose Point of Care 224 mg/dl (65-105)
[2022-04-30 17:42] LABS: Glucose Point of Care 209 mg/dl (65-105)
[2022-04-30 20:59] LABS: Glucose Point of Care 199 mg/dl (65-105)
[2022-04-30] MEDS: TAMOXIFEN CITRATE (*CHEMO) 10 MG TABLET 20 MG PO (21:03)
[2022-04-30] MEDS: ATORVASTATIN 40 MG TABLET PO (21:03)
[2022-05-01] VITALS (16 sets, daily range): BP systolic 105–152; BP diastolic 43–101; PULSE 73–106; RESP 14–20; TEMP 36–37.1; O2SAT 88–100
[2022-05-01] MEDS: SALINE LOCK FLUSH 10 ML IV PUSH ×3 (04:32→20:32)
[2022-05-01] MEDS: SALINE LOCK FLUSH 20 ML IV PUSH (04:32)
[2022-05-01 04:41] LABS: Basophils Percent Auto 0.4 % (0.2-1.2); Eosinophils Percent Auto 0.3 % (0-4.4); Hematocrit 30.8 % (37.0-47.0); Immature Granulocyte Absolute 0.04 K/mm3 (0.00-0.031); Immature Granulocyte Percent A 0.4 % (0-0.5); Lymphocytes Absolute Auto 1.05 K/mm3 (0.9-3.2); Lymphocytes Percent Auto 9.3 % (18.3-44.2); Mean Corpuscular HGB Conc 32.5 g/dl (32-36); Mean Corpuscular Hemoglobin 28.3 pg (26-34); Mean Corpuscular Volume 87.3 fl (80-100); Mean Platelet Volume 12.6 fl (7.4-10.4); Monocytes Absolute Auto 0.7 K/mm3 (0.1-0.6); Monocytes Percent Auto 6.2 % (2.6-8.5); Neutrophils Absolute Auto 9.4 K/mm3 (1.3-6.7); Neutrophils Percent Auto 83.4 % (45.5-73.1); Platelet Count Result 102 k/mm3 (150-375); Red Blood Count 3.53 M/mm3 (4.2-5.4); Red Cell Distribution Width 13.2 % (11.5-14.5); White Blood Count 11.3 K/mm3 (4.5-10.0)
[2022-05-01 05:00] LABS: Alanine Aminotransferase 18 U/L (6-35); Albumin Level 2.9 g/dL (3.5-5.1); Alkaline Phosphatase 52 U/L (38-126); Anion Gap 7 mmol/L (8-16); Aspartate Amino Transferase 31 U/L (14-36); Bilirubin,Total 0.8 mg/dL (0.2-1.3); Blood Urea Nitrogen 39 mg/dL (7-17); Calcium 7.8 mg/dL (8.4-10.2); Carbon Dioxide 27 mmol/L (22-30); Chloride 99 mmol/L (98-107); Estimated CRCL calculation 24 ml/min; Estimated Glomerular Filt Rate 29; Glucose 139 mg/dL (65-110); Potassium 3.6 mmol/L (3.4-5.0); Sodium 133 mmol/L (137-145)
[2022-05-01 08:17] LABS: Glucose Point of Care 160 mg/dl (65-105)
[2022-05-01] MEDS: THERAPEUTIC MULTIVITAMINS/MINERALS TAB (*BKC) 1 TABLET PO (08:34)
[2022-05-01] MEDS: SACUBITRIL/VALSARTAN 24-26 MG TABLET 1 TAB PO ×2 (08:34→20:30)
[2022-05-01] MEDS: SPIRONOLACTONE 12.5 MG TABLET PO (08:34)
[2022-05-01] MEDS: PANTOPRAZOLE SODIUM IV 40 MG VIAL IV PUSH ×2 (08:34→17:24)
[2022-05-01] MEDS: METOPROLOL SUCCINATE EXT REL 25 MG TABCR PO (08:34)
[2022-05-01] MEDS: FUROSEMIDE INJ 40 MG/4 ML VIAL 20 MG IV PUSH (08:34)
[2022-05-01] MEDS: EMPAGLIFLOZIN 10 MG TABLET PO (08:34)
[2022-05-01] MEDS: FERROUS SULFATE 324 MG TABLET PO (08:35)
[2022-05-01] MEDS: ASPIRIN 81 MG ENTERIC TABLET PO (08:35)
[2022-05-01] MEDS: TOLNAFTATE 1% POWDER 45 GM BTL 1 APPLIC TOPICAL ×2 (08:35→20:31)
[2022-05-01] MEDS: ACIDOPHILUS/BULGARICUS CHEWABLE TABLET 1 TABLET BY MOUTH (08:35)
[2022-05-01] MEDS: OMEGA 3 POLYUNSAT FATTY ACIDS 1 GM CAP PO (08:35)
--- NOTE | 2022-05-01 10:18 | PM.PNCARD ---
Progress Note: A&P Assessment and Plan (1) Non-STEMI (non-ST elevated myocardial infarction): Code(s): I21.4 - Non-ST elevation (NSTEMI) myocardial infarction Status: Acute Assessment and Plan: Cardiac cath showed nonobstructive coronary artery disease with patent LAD stent. This appears to be takotsubo cardiomyopathy now. LVEDP is significantly elevated at 41mmHg. TTE 04/29 showed: 1. Complete two-dimensional, color flow and Doppler transthoracic echocardiogram is performed. 2. Left ventricular systolic function is severely reduced, estimated at 20-25%. 3. There is hypokinesis of the mid inferoseptum and mid inferolateral esteban. There is akinesis of the apical septum, apical cap, apical lateral, mid anteroseptum, and mid anterolateral esteban. Regional wall motion abnormalities consistent with either an LAD infarction or takotsubo cardiomyopathy. 4. Right ventricular systolic function is normal. 5. Right atrial chamber dimension is mildly enlarged. 6. There is moderate aortic valve calcification. 7. There is mild to moderate aortic valve regurgitation. 8. The mitral valve annulus is severely calcified. 9. The mitral valve has thickened leaflets. 10. There is trace mitral valve regurgitation. 11. There is moderate tricuspid valve regurgitation. 12. Dilated inferior vena cava with no collapse upon inspiration consistent with elevated right atrial pressure, 15 mmHg. 13. Left pleural effusion is present. For CAD, continue with ASA and statin. Started low-dose Entresto and Jardiance, tolerating well. BP stable. Continue with Toprol. Continue with current doses of Entresto and Jardiance. SCr is at 1.7 this AM. Given JENNIFER, will hold Lasix and hold Aldactone. Monitor SCr closely. (2) PAF (paroxysmal atrial fibrillation): Code(s): I48.0 - Paroxysmal atrial fibrillation Status: Acute Assessment and Plan: S/p Watchman. Given recent diagnosis of cirrhosis, we stopped her Amiodarone. (3) Cirrhosis: Code(s): K74.60 - Unspecified cirrhosis of liver Status: Acute Assessment and Plan: Recent diagnosis. Management as per hospitalist. (4) GI bleed: Code(s): K92.2 - Gastrointestinal hemorrhage, unspecified Status: Acute Assessment and Plan: History of multiple bleeding gastric polyps. (5) Heart failure with reduced ejection fraction: Code(s): I50.20 - Unspecified systolic (congestive) heart failure Status: Acute Subjective Date/time seen: 05/01/22 10:18 Interval history: Reason for visit: NSTEMI, HFrEF History: Patient is a 77-year-old female patient Dr. Moses who has a history of atrial fibrillation status post Watchman.? She also has LAD stent in 2019.? She has a multitude of other concerning issues at this point including a left renal cell carcinoma and she is scheduled to see urology in early May.? She fell last Monday and since then has had progressively worsening balance issues and dizziness and lightheadedness.? She however yesterday due to issues of nausea vomiting and generalized weakness and lack of balance called 911.? Whenever she was in the ambulance she started to develop back pain.? Pain was significant radiating across her shoulders.? She was also quite short of breath.? She came to the hospital for further workup evaluation.? Troponins were elevated.? EKG did not show any acute abnormalities.? Eventually she agreed to take nitroglycerin and was given furosemide.? Symptoms of back and shoulder pain as well as shortness of breath did improve with nitro.? CT scan of the chest was performed which did not show any pulmonary embolism Date of service 04/29/2022: Patient is now agreeable to receive Heparin and undergo cardiac cath. Patient states she is feeling better since admission. Denies chest pain. Denies shortness of breath this AM. Date of service 04/30/2022: Patient reports improvement in breathing. Feeling a bit fatigued, but otherwise
[2022-05-01 12:10] LABS: Glucose Point of Care 248 mg/dl (65-105)
[2022-05-01] MEDS: INSULIN ASPART (*BKC) 100 UNITS/ML SUB-Q (12:11)
--- NOTE | 2022-05-01 12:43 | PCOTNOTE ---
Left a voicemail for Joan Cisneros DO at 12:43pm in regards to needing bedrest orders removed. Following.
--- NOTE | 2022-05-01 15:28 | PM.IMPN ---
Progress Note: A&P Assessment and Plan (1) Non-STEMI (non-ST elevated myocardial infarction): Code(s): I21.4 - Non-ST elevation (NSTEMI) myocardial infarction Status: Acute Assessment and Plan: -C showing patent prox LAD stent and no other significant disease -cardiology suspecting Takotsubo cardiomyopathy -continue Entresto, Jardiance, Toprol -Lasix and Aldactone on hold due to rising Cr (2) Pulmonary edema: Qualifiers: Chronicity: acute Qualified Code(s): J81.0 - Acute pulmonary edema Code(s): J81.1 - Chronic pulmonary edema Status: Acute Assessment and Plan: -CT chest showing CMG, diffuse bilateral pulmonary infiltrates and mild bilateral effusions -I/O inaccurate -Lasix on hold now for elevated Cr. -Follow. Wean O2 as tolerated (3) JENNIFER (acute kidney injury): Code(s): N17.9 - Acute kidney failure, unspecified Status: Acute Assessment and Plan: -Cr climbed to 1.7 today. Was 0.9 on 04/28. -Forrest related to diuretic therapy -Consider also poor renal perfusion from the CMP although she does not seem overloaded. -Monitor (4) Cirrhosis: Code(s): K74.60 - Unspecified cirrhosis of liver Status: Acute Assessment and Plan: -CT scan showing cirrhosis -stable. INR 1.3. LFTs noted -follow-up with GI outpatient (5) Esophagitis with gastritis: Code(s): K29.70 - Gastritis, unspecified, without bleeding; K20.90 - Esophagitis, unspecified without bleeding Status: Acute Assessment and Plan: -CT scan showing esophagitis/gastritis -she is having chest pain she feels associated with acid reflux -was on protonix on admission -continue PPI. May need EGD (6) Thrombocytopenia: Code(s): D69.6 - Thrombocytopenia, unspecified Status: Acute Assessment and Plan: -Plt count dropped to 102K. -probably related to sequestration from her cirrhosis -follow (7) Hx of breast cancer: Code(s): Z85.3 - Personal history of malignant neoplasm of breast Status: Acute Assessment and Plan: -CT chest showing soft tissue thickening overlying retraction to the left breast -follow-up with outpatient oncologist (8) PAF (paroxysmal atrial fibrillation): Code(s): I48.0 - Paroxysmal atrial fibrillation Status: Acute Assessment and Plan: -tele showing she is back in AFib -has a hx of pAFib -not on anticoagulation -Check EKG (9) Renal mass: Code(s): N28.89 - Other specified disorders of kidney and ureter Status: Acute Assessment and Plan: -CT showing right renal mass -MRI 04/04/22 showing right RCC -follow up with oncology Plan DVT prophylaxis with SCDs GI prophylaxis with PPI Code status full code Subjective Date/time seen: 05/01/22 15:28 Interval history: 77yo female with pAFib, cirrhosis, DM and breast CA here for n/v, diarrhea and recent fall. Assuming care. Chart reviewed. She feels tired. Slept off/on. Having mild chest pain 1-2/10 that feels like 'my acid reflux'. Not on O2 at home. She does have chronic vertigo. Exam Narrative: AF 97.4 105/55 84 16 94% 1L General: NARD HEENT: Atraumatic, normocephalic, mucous membranes moist CV: irregularly irregular; Tele showing AFib with controlled rate. Lungs: Decreased BS mid and lower lung jules. nml RR Abdomen: Soft, nontender, nondistended Extremities: Normal to inspection. 2+ DP bilaterally. Right wrist cath site clean and dry Skin: No rashes noted, no lesions or wounds seen Psych: Euthymic, normal affect Objective Data Vital Signs Vital Signs: Vital Signs - 24 hr 04/30/22 15:49 04/30/22 16:00 04/30/22 16:00 Temperature 97.8 F Pulse Rate 76 76 Respiratory Rate 16 Blood Pressure 109/57 L Pulse Oximetry 94 93 Oxygen Delivery Nasal Cannula Oxygen Flow Rate 1 04/30/22 18:00 04/30/22 20:00 04/30/22 20:00 Temperature 97.9 F Pulse Rate 78
--- NOTE | 2022-05-01 16:10 | PCPTNOTE ---
Patient has bedrests orders. Called hospitalist exchange but no response.
[2022-05-01 17:03] LABS: Glucose Point of Care 138 mg/dl (65-105)
[2022-05-01 20:16] LABS: Glucose Point of Care 217 mg/dl (65-105)
[2022-05-01] MEDS: ATORVASTATIN 40 MG TABLET PO (20:30)
[2022-05-01] MEDS: TAMOXIFEN CITRATE (*CHEMO) 10 MG TABLET 20 MG PO (20:31)
[2022-05-02] VITALS (16 sets, daily range): BP systolic 103–127; BP diastolic 54–89; PULSE 75–125; RESP 16–20; TEMP 36.4–36.9; O2SAT 95–100
[2022-05-02 05:40] LABS: Basophils Percent Auto 0.3 % (0.2-1.2); Eosinophils Absolute Auto 0.1 K/mm3 (0-0.3); Eosinophils Percent Auto 0.7 % (0-4.4); Hematocrit 31.2 % (37.0-47.0); Hemoglobin 10.1 g/dL (12.0-15.0); Immature Granulocyte Absolute 0.04 K/mm3 (0.00-0.031); Immature Granulocyte Percent A 0.4 % (0-0.5); Lymphocytes Absolute Auto 1.08 K/mm3 (0.9-3.2); Lymphocytes Percent Auto 10.8 % (18.3-44.2); Mean Corpuscular HGB Conc 32.4 g/dl (32-36); Mean Corpuscular Hemoglobin 28.1 pg (26-34); Mean Corpuscular Volume 86.7 fl (80-100); Mean Platelet Volume 12.1 fl (7.4-10.4); Monocytes Absolute Auto 0.7 K/mm3 (0.1-0.6); Monocytes Percent Auto 6.6 % (2.6-8.5); Neutrophils Absolute Auto 8.2 K/mm3 (1.3-6.7); Neutrophils Percent Auto 81.2 % (45.5-73.1); Platelet Count Result 102 k/mm3 (150-375); Red Cell Distribution Width 12.7 % (11.5-14.5)
[2022-05-02] MEDS: SALINE LOCK FLUSH 10 ML IV PUSH ×3 (05:43→21:02)
[2022-05-02 05:52] LABS: Alanine Aminotransferase 20 U/L (6-35); Albumin Level 2.6 g/dL (3.5-5.1); Alkaline Phosphatase 60 U/L (38-126); Anion Gap 6 mmol/L (8-16); Aspartate Amino Transferase 29 U/L (14-36); Bilirubin,Total 0.6 mg/dL (0.2-1.3); Blood Urea Nitrogen 46 mg/dL (7-17); Calcium 7.4 mg/dL (8.4-10.2); Carbon Dioxide 26 mmol/L (22-30); Chloride 99 mmol/L (98-107); Estimated CRCL calculation 21 ml/min; Estimated Glomerular Filt Rate 26; Glucose 135 mg/dL (65-110); Potassium 3.3 mmol/L (3.4-5.0); Sodium 131 mmol/L (137-145)
[2022-05-02 08:12] LABS: Glucose Point of Care 137 mg/dl (65-105)
[2022-05-02] MEDS: SACUBITRIL/VALSARTAN 24-26 MG TABLET 1 TAB PO ×2 (09:01→21:01)
[2022-05-02] MEDS: OMEGA 3 POLYUNSAT FATTY ACIDS 1 GM CAP PO (09:01)
[2022-05-02] MEDS: THERAPEUTIC MULTIVITAMINS/MINERALS TAB (*BKC) 1 TABLET PO (09:01)
[2022-05-02] MEDS: ASPIRIN 81 MG ENTERIC TABLET PO (09:01)
[2022-05-02] MEDS: ACIDOPHILUS/BULGARICUS CHEWABLE TABLET 1 TABLET BY MOUTH (09:01)
[2022-05-02] MEDS: FERROUS SULFATE 324 MG TABLET PO (09:01)
[2022-05-02] MEDS: METOPROLOL SUCCINATE EXT REL 25 MG TABCR PO (09:01)
[2022-05-02] MEDS: EMPAGLIFLOZIN 10 MG TABLET PO (09:01)
[2022-05-02] MEDS: PANTOPRAZOLE SODIUM IV 40 MG VIAL IV PUSH ×2 (09:02→17:45)
--- NOTE | 2022-05-02 09:42 | PM.PNCARD ---
Progress Note: A&P Assessment and Plan (1) Non-STEMI (non-ST elevated myocardial infarction): Code(s): I21.4 - Non-ST elevation (NSTEMI) myocardial infarction Status: Acute Assessment and Plan: Cardiac cath showed nonobstructive coronary artery disease with patent LAD stent. This appears to be takotsubo cardiomyopathy now. LVEDP is significantly elevated at 41mmHg. TTE 04/29 showed: 1. Complete two-dimensional, color flow and Doppler transthoracic echocardiogram is performed. 2. Left ventricular systolic function is severely reduced, estimated at 20-25%. 3. There is hypokinesis of the mid inferoseptum and mid inferolateral esteban. There is akinesis of the apical septum, apical cap, apical lateral, mid anteroseptum, and mid anterolateral esteban. Regional wall motion abnormalities consistent with either an LAD infarction or takotsubo cardiomyopathy. 4. Right ventricular systolic function is normal. 5. Right atrial chamber dimension is mildly enlarged. 6. There is moderate aortic valve calcification. 7. There is mild to moderate aortic valve regurgitation. 8. The mitral valve annulus is severely calcified. 9. The mitral valve has thickened leaflets. 10. There is trace mitral valve regurgitation. 11. There is moderate tricuspid valve regurgitation. 12. Dilated inferior vena cava with no collapse upon inspiration consistent with elevated right atrial pressure, 15 mmHg. 13. Left pleural effusion is present. For CAD, continue with ASA and statin. Started low-dose Entresto and Jardiance, tolerating well. BP stable. Continue with Toprol. Continue with current doses of Entresto and Jardiance. Will DC furosemide. Will need to resume low-dose furosemide on discharge. Increase Toprol XL to 50 mg daily. (2) PAF (paroxysmal atrial fibrillation): Code(s): I48.0 - Paroxysmal atrial fibrillation Status: Acute Assessment and Plan: S/p Watchman. Given recent diagnosis of cirrhosis, we stopped her Amiodarone. (3) Cirrhosis: Code(s): K74.60 - Unspecified cirrhosis of liver Status: Acute Assessment and Plan: Recent diagnosis. Management as per hospitalist. (4) GI bleed: Code(s): K92.2 - Gastrointestinal hemorrhage, unspecified Status: Acute Assessment and Plan: History of multiple bleeding gastric polyps. (5) Heart failure with reduced ejection fraction: Code(s): I50.20 - Unspecified systolic (congestive) heart failure Status: Acute Subjective Date/time seen: 05/02/22 09:42 Interval history: Reason for visit: NSTEMI, HFrEF History: Patient is a 77-year-old female patient Dr. Moses who has a history of atrial fibrillation status post Watchman.? She also has LAD stent in 2019.? She has a multitude of other concerning issues at this point including a left renal cell carcinoma and she is scheduled to see urology in early May.? She fell last Monday and since then has had progressively worsening balance issues and dizziness and lightheadedness.? She however yesterday due to issues of nausea vomiting and generalized weakness and lack of balance called 911.? Whenever she was in the ambulance she started to develop back pain.? Pain was significant radiating across her shoulders.? She was also quite short of breath.? She came to the hospital for further workup evaluation.? Troponins were elevated.? EKG did not show any acute abnormalities.? Eventually she agreed to take nitroglycerin and was given furosemide.? Symptoms of back and shoulder pain as well as shortness of breath did improve with nitro.? CT scan of the chest was performed which did not show any pulmonary embolism Date of service 04/29/2022: Patient is now agreeable to receive Heparin and undergo cardiac cath. Patient states she is feeling better since admission. Denies chest pain. Denies shortness of breath this AM. Date of service 04/30/2022: Patient reports improvement in breathing. Feeling a bit fati
[2022-05-02] MEDS: TOLNAFTATE 1% POWDER 45 GM BTL 1 APPLIC TOPICAL ×2 (09:54→21:01)
--- NOTE | 2022-05-02 11:23 | PCNFU ---
Nutrition Follow-Up Complete: Inadequate oral intake related to loss of appetite as evidenced by MST 2. Goal:Adequate PO intake at least 75% meals. Pt is not meeting goal. continue with same goal. Pt current nutrition is Heart Healthy, Ensure compact BID. Nutrition recommendation: change supplement to glucerna shakes BID Last recorded weight is 71 kg - stable at this time. Bowel Motility: +BM 05/02 Labs Reviewed: Hgb:10.1, HCT:31.2, Al:2.6, NA:131, K:3.3, GFR:26, BUN:46,Cr:1.9, Glu:135 Meds Noted: jardiance, novolog, protonix Skin: WNL Additional Notes:Pt continues on a heart healthy diet, intake charted at 0-25%, Pt reports poor appetite and intake, dislikes the Ensure. Agreed to try Glucerna shakes. Monitoring intakes, weights, labs, plan of care Follow up in 5 days
--- NOTE | 2022-05-02 11:24 | ECG_ITS ---
Measurements Intervals [place] Rate: 104 P: [place]: 0 QRS: 239 QRSD: 100 T: 178 QT: 408 QTc: 539 Interpretive Statements ATRIAL FIBRILLATION WITH RAPID VENTRICULAR RESPONSE RIGHT AXIS DEVIATION LOW QRS VOLTAGE IN LIMB LEADS INFERIOR INFARCT, AGE INDETERMINATE T WAVE ABNORMALITY IN LAT/HIGH LAT LEADS- CONSIDER ISCHEMIA ABNORMAL ECG COMPARED TO ECG 04/28/2022 00:41:23 ATRIAL FIBRILLATION NOW PRESENT T WAVE ABNORMALITY NOW PRESENT Electronically Signed On 05-02-2022 11:44:08 [employer] by Mik Monsalve D.O.
[2022-05-02] MEDS: POTASSIUM CHLORIDE 20 MEQ PACKET (FOR LIQUID) 40 MEQ PO (12:01)
[2022-05-02] MEDS: INSULIN ASPART (*BKC) 100 UNITS/ML SUB-Q ×2 (12:09→17:45)
--- NOTE | 2022-05-02 16:42 | PM.IMPN ---
Progress Note: A&P Assessment and Plan (1) Non-STEMI (non-ST elevated myocardial infarction): Code(s): I21.4 - Non-ST elevation (NSTEMI) myocardial infarction Status: Acute Assessment and Plan: -[facility] showing patent prox LAD stent and no other significant disease -cardiology suspecting Takotsubo cardiomyopathy -doubt NSTEMI; more likely elevate Troponin from Type II [place] -continue Entresto, Jardiance, Toprol -Lasix and Aldactone on hold due to rising Cr (2) Pulmonary edema: Qualifiers: Chronicity: acute Qualified Code(s): J81.0 - Acute pulmonary edema Code(s): J81.1 - Chronic pulmonary edema Status: Acute Assessment and Plan: -CT chest showing CMG, diffuse bilateral pulmonary infiltrates and mild bilateral effusions -I/O inaccurate -Lasix on hold now for elevated Cr. -Follow. (3) JENNIFER (acute kidney injury): Code(s): N17.9 - Acute kidney failure, unspecified Status: Acute Assessment and Plan: -Cr climbed to 1.9 today. Was 0.9 on 04/28. -[place] related to diuretic therapy and/or contrast exposure -Consider also cardiorenal with poor renal perfusion from cardiomyopathy although she does not seem overloaded. -check renal US, urine studies -Monitor (4) PAF (paroxysmal atrial fibrillation): Code(s): I48.0 - Paroxysmal atrial fibrillation Status: Acute Assessment and Plan: -tele showing AFib -has a hx of pAFib -rate controlled unless she is active -not on anticoagulation -metoprolol advanced -monitor on tele (5) Cirrhosis: Code(s): K74.60 - Unspecified cirrhosis of liver Status: Acute Assessment and Plan: -CT scan showing cirrhosis -stable. INR 1.3. LFTs noted -follow-up with GI as outpatient (6) Esophagitis with gastritis: Code(s): K29.70 - Gastritis, unspecified, without bleeding; K20.90 - Esophagitis, unspecified without bleeding Status: Acute Assessment and Plan: -CT scan showing esophagitis/gastritis -she was having chest pain she feels associated with acid reflux -was on protonix on admission -continue PPI. May need EGD (7) Thrombocytopenia: Code(s): D69.6 - Thrombocytopenia, unspecified Status: Acute Assessment and Plan: -Plt count dropped to 102K but stable -probably related to sequestration from her cirrhosis -follow (8) Hx of breast cancer: Code(s): Z85.3 - Personal history of malignant neoplasm of breast Status: Acute Assessment and Plan: -CT chest showing soft tissue thickening overlying retraction to the left breast -follow-up with outpatient oncologist (9) Renal mass: Code(s): N28.89 - Other specified disorders of kidney and ureter Status: Acute Assessment and Plan: -CT showing right renal mass -MRI 04/04/22 showing right RCC -follow up with oncology Plan DVT prophylaxis with SCDs GI prophylaxis with PPI Code status full code Subjective Date/time seen: 05/02/22 16:42 Interval history: 77yo female with pAFib, cirrhosis, DM and breast CA here for n/v, diarrhea and recent fall. No CP or SOB. +KRISHNAN. Walking with therapy and noted elevated HR. UOP slightly decreased. No dysuria or hematuria. Exam Narrative: AF 98.2 127/89 83 18 95% 1L Gen - NARD Chest - decreased BS in the bases L>R CV - irregularly irregular; Tele showing AFib with mostly controlled rate Abd - Soft, nontender, nondistended Ext - no edema Psych - nml mood and affect Skin - warm and dry Objective Data Vital Signs Vital Signs: Vital Signs - 24 hr 05/01/22 18:00 05/01/22 20:31 05/01/22 20:00 Temperature 98.7 F Pulse Rate 98 99 85 Respiratory Rate 20 Blood Pressure 152/101 H Pulse Oximetry 100 Oxygen Delivery Oxygen Flow Rate 05/01/22 20:00 05/01/22 22:00 05/02/22 00:06 Temperature 98.4 F Pulse Rate 85 96 92 Respiratory Rate 20 20 Blood Pressure 113/66 Pulse Oximet
[2022-05-02] MEDS: calcium polycarbophiL 625 MG TABLET 1250 MG PO (17:47)
[2022-05-02 18:44] LABS: Glucose Point of Care 256 mg/dl (65-105)
[2022-05-02 18:44] LABS: Glucose Point of Care 215 mg/dl (65-105)
[2022-05-02 20:33] LABS: Glucose Point of Care 246 mg/dl (65-105)
[2022-05-02] MEDS: TAMOXIFEN CITRATE (*CHEMO) 10 MG TABLET 20 MG PO (21:01)
[2022-05-02] MEDS: ATORVASTATIN 40 MG TABLET PO (21:01)
[2022-05-02 21:35] LABS: Bacteria Urine 3+ /hpf; RBC Urine 0-2 /hpf (0-2); Squamous Epithelial Cell Urine Few /hpf (Few)
[2022-05-02 21:39] LABS: Appearance Urine Slightly Cloudy (Clear); Bilirubin Urine 1+ (Negative); Blood Urine Negative (Negative); Color Urine Yellow (Yellow); Glucose Urine UA 3+ mg/dL (Negative); Ketones Urine Negative (Negative); Leukocyte Esterase Ur Negative LEU/UL (Negative); Nitrate Urine Negative (Negative); Protein Urine Negative (Negative); Urobilinogen Urine 0.2 mg/dL (<2.0); pH Urine 5.5 (5.0-9.0)
[2022-05-02 21:42] LABS: Creatinine Urine 105.7 mg/dL
[2022-05-02 21:43] LABS: Sodium Urine Random 7 meq/L
[2022-05-02 22:10] LABS: Add Urine Microscopic? YES
[2022-05-02 22:59] LABS: Eosinophil Urine None Seen % (None Seen)
[2022-05-03] VITALS (15 sets, daily range): BP systolic 107–130; BP diastolic 55–73; PULSE 74–98; RESP 14–20; TEMP 36.2–36.7; O2SAT 93–100
[2022-05-03] MEDS: SALINE LOCK FLUSH 10 ML IV PUSH ×5 (05:50→21:26)
[2022-05-03 08:51] LABS: Glucose Point of Care 144 mg/dl (65-105)
[2022-05-03] MEDS: METOPROLOL SUCCINATE EXT REL 50 MG TABCR PO (08:54)
[2022-05-03] MEDS: ASPIRIN 81 MG ENTERIC TABLET PO (08:54)
[2022-05-03] MEDS: EMPAGLIFLOZIN 10 MG TABLET PO (08:55)
[2022-05-03] MEDS: THERAPEUTIC MULTIVITAMINS/MINERALS TAB (*BKC) 1 TABLET PO (08:55)
[2022-05-03] MEDS: ACIDOPHILUS/BULGARICUS CHEWABLE TABLET 1 TABLET BY MOUTH (08:55)
[2022-05-03] MEDS: SACUBITRIL/VALSARTAN 24-26 MG TABLET 1 TAB PO ×2 (08:56→21:22)
[2022-05-03] MEDS: PANTOPRAZOLE SODIUM IV 40 MG VIAL IV PUSH ×2 (08:57→17:22)
[2022-05-03] MEDS: FERROUS SULFATE 324 MG TABLET PO (08:57)
[2022-05-03] MEDS: OMEGA 3 POLYUNSAT FATTY ACIDS 1 GM CAP PO (08:57)
--- NOTE | 2022-05-03 09:12 | PM.IMPN ---
Progress Note: A&P Assessment and Plan (1) Non-STEMI (non-ST elevated myocardial infarction): Code(s): I21.4 - Non-ST elevation (NSTEMI) myocardial infarction Status: Acute Assessment and Plan: -[facility] showing patent prox LAD stent and no other significant disease -cardiology suspecting Takotsubo cardiomyopathy -doubt NSTEMI; more likely elevate Troponin from Type II [place] -continue Entresto, Jardiance, Toprol -Lasix and Aldactone on hold due to rising Cr (2) Pulmonary edema: Qualifiers: Chronicity: acute Qualified Code(s): J81.0 - Acute pulmonary edema Code(s): J81.1 - Chronic pulmonary edema Status: Acute Assessment and Plan: -CT chest showing CMG, diffuse bilateral pulmonary infiltrates and mild bilateral effusions -I/O inaccurate -Lasix on hold now for elevated Cr. -Follow. (3) JENNIFER (acute kidney injury): Code(s): N17.9 - Acute kidney failure, unspecified Status: Acute Assessment and Plan: -creatinine continues to climb, 2.3 today, up from 0.9 yesterday -[place] related to diuretic therapy and/or contrast exposure -Consider also cardiorenal with poor renal perfusion from cardiomyopathy although she does not seem overloaded. -check renal US, urine studies -Monitor -nephrology consult pending (4) PAF (paroxysmal atrial fibrillation): Code(s): I48.0 - Paroxysmal atrial fibrillation Status: Acute Assessment and Plan: -tele showing AFib -has a hx of pAFib -rate controlled unless she is active -not on anticoagulation -metoprolol advanced -monitor on tele (5) Cirrhosis: Code(s): K74.60 - Unspecified cirrhosis of liver Status: Acute Assessment and Plan: -CT scan showing cirrhosis -stable. INR 1.3. LFTs noted -follow-up with GI as outpatient (6) Esophagitis with gastritis: Code(s): K29.70 - Gastritis, unspecified, without bleeding; K20.90 - Esophagitis, unspecified without bleeding Status: Acute Assessment and Plan: -CT scan showing esophagitis/gastritis -she was having chest pain she feels associated with acid reflux -was on protonix on admission -continue PPI. May need EGD (7) Thrombocytopenia: Code(s): D69.6 - Thrombocytopenia, unspecified Status: Acute Assessment and Plan: -Plt count dropped to 102K but stable -probably related to sequestration from her cirrhosis -follow (8) Hx of breast cancer: Code(s): Z85.3 - Personal history of malignant neoplasm of breast Status: Acute Assessment and Plan: -CT chest showing soft tissue thickening overlying retraction to the left breast -follow-up with outpatient oncologist (9) Renal mass: Code(s): N28.89 - Other specified disorders of kidney and ureter Status: Acute Assessment and Plan: -CT showing right renal mass -MRI 04/04/22 showing right RCC -follow up with oncology Plan DVT prophylaxis with SCDs GI prophylaxis with PPI Code status full code Subjective Date/time seen: 05/03/22 09:12 Interval history: No overnight events noted. No chest pain or shortness of breath. No nausea, vomiting or diarrhea. No fevers or chills. Review of Systems Review of Systems: 12 point review of systems was assessed and was negative except as noted in the HPI Exam Narrative: General: No acute distress, alert and oriented per baseline HEENT: Atraumatic, normocephalic, mucous membranes moist CV: Regular rate and rhythm, S1, S2 Lungs: Clear to auscultation bilaterally, no rales or crackles noted, no wheezes, good air entry Abdomen: Soft, nontender, nondistended Extremities: Normal to inspection Skin: No rashes noted, no lesions or wounds seen Psych: Euthymic, normal affect Objective Data Vital Signs Vital Signs: Vital Signs - 24 hr 05/02/22 09:35 05/02/22 12:00 05/02/22 10:00 Temperature 97.6 F Pulse Rate 96 99 Respiratory Rate 18
--- NOTE | 2022-05-03 09:29 | PM.PNCARD ---
Progress Note: A&P Assessment and Plan (1) Non-STEMI (non-ST elevated myocardial infarction): Code(s): I21.4 - Non-ST elevation (NSTEMI) myocardial infarction Status: Acute Assessment and Plan: Cardiac cath showed nonobstructive coronary artery disease with patent LAD stent. This appears to be takotsubo cardiomyopathy now. LVEDP is significantly elevated at 41mmHg. TTE 04/29 showed: 1. Complete two-dimensional, color flow and Doppler transthoracic echocardiogram is performed. 2. Left ventricular systolic function is severely reduced, estimated at 20-25%. 3. There is hypokinesis of the mid inferoseptum and mid inferolateral esteban. There is akinesis of the apical septum, apical cap, apical lateral, mid anteroseptum, and mid anterolateral esteban. Regional wall motion abnormalities consistent with either an LAD infarction or takotsubo cardiomyopathy. 4. Right ventricular systolic function is normal. 5. Right atrial chamber dimension is mildly enlarged. 6. There is moderate aortic valve calcification. 7. There is mild to moderate aortic valve regurgitation. 8. The mitral valve annulus is severely calcified. 9. The mitral valve has thickened leaflets. 10. There is trace mitral valve regurgitation. 11. There is moderate tricuspid valve regurgitation. 12. Dilated inferior vena cava with no collapse upon inspiration consistent with elevated right atrial pressure, 15 mmHg. 13. Left pleural effusion is present. For CAD, continue with ASA and statin. For cardiomyopathy: Continue with Entresto, Jardiance, and Toprol XL Given JENNIFER, Lasix and Spironolactone were discontinued. Watch renal function, SCr still rising at tis time - JENNIFER likely due to contrast from cardiac cath and diuretics. Will need to resume low-dose furosemide on discharge. (2) PAF (paroxysmal atrial fibrillation): Code(s): I48.0 - Paroxysmal atrial fibrillation Status: Acute Assessment and Plan: S/p Watchman. Given recent diagnosis of cirrhosis, we stopped her Amiodarone. Continue beta-allan (3) Cirrhosis: Code(s): K74.60 - Unspecified cirrhosis of liver Status: Acute Assessment and Plan: Recent diagnosis. Management as per hospitalist. (4) GI bleed: Code(s): K92.2 - Gastrointestinal hemorrhage, unspecified Status: Acute Assessment and Plan: History of multiple bleeding gastric polyps. (5) Heart failure with reduced ejection fraction: Code(s): I50.20 - Unspecified systolic (congestive) heart failure Status: Acute Subjective Date/time seen: 05/03/22 09:29 Interval history: Reason for visit: NSTEMI, HFrEF History: Patient is a 77-year-old female patient Dr. Moses who has a history of atrial fibrillation status post Watchman.? She also has LAD stent in 2019.? She has a multitude of other concerning issues at this point including a left renal cell carcinoma and she is scheduled to see urology in early May.? She fell last Monday and since then has had progressively worsening balance issues and dizziness and lightheadedness.? She however yesterday due to issues of nausea vomiting and generalized weakness and lack of balance called 911.? Whenever she was in the ambulance she started to develop back pain.? Pain was significant radiating across her shoulders.? She was also quite short of breath.? She came to the hospital for further workup evaluation.? Troponins were elevated.? EKG did not show any acute abnormalities.? Eventually she agreed to take nitroglycerin and was given furosemide.? Symptoms of back and shoulder pain as well as shortness of breath did improve with nitro.? CT scan of the chest was performed which did not show any pulmonary embolism Date of service 04/29/2022: Patient is now agreeable to receive Heparin and undergo cardiac cath. Patient states she is feeling better since admission. Denies chest pain. Denies shortness of breath this AM. Date of service 04/30/2022: [place]
--- NOTE | 2022-05-03 10:22 | P.CDI_ITS ---
CDI Query Clarified Diagnosis Clarified Diagnosis: Patient with history of CHF Patient on furosemide as a home medication. Elevated BNP on 04/27/22 Heart Failure noted on problem list. Please specify type and acuity of heart failure if known. Acute * Chronic * Acute on Chronic * Unknown * Systolic * Diastolic * Combined Systolic and Diastolic * Unknown
[2022-05-03 10:24] LABS: Basophils Percent Auto 0.3 % (0.2-1.2); Eosinophils Absolute Auto 0.1 K/mm3 (0-0.3); Eosinophils Percent Auto 0.5 % (0-4.4); Hematocrit 35.2 % (37.0-47.0); Hemoglobin 11.3 g/dL (12.0-15.0); Immature Granulocyte Absolute 0.03 K/mm3 (0.00-0.031); Immature Granulocyte Percent A 0.3 % (0-0.5); Lymphocytes Percent Auto 7.8 % (18.3-44.2); Mean Corpuscular HGB Conc 32.1 g/dl (32-36); Mean Corpuscular Volume 84.2 fl (80-100); Mean Platelet Volume 12.8 fl (7.4-10.4); Monocytes Absolute Auto 0.8 K/mm3 (0.1-0.6); Monocytes Percent Auto 6.5 % (2.6-8.5); Neutrophils Absolute Auto 9.8 K/mm3 (1.3-6.7); Neutrophils Percent Auto 84.6 % (45.5-73.1); Platelet Count Result 154 k/mm3 (150-375); Red Blood Count 4.18 M/mm3 (4.2-5.4); Red Cell Distribution Width 12.8 % (11.5-14.5); White Blood Count 11.6 K/mm3 (4.5-10.0)
[2022-05-03 10:32] LABS: Alanine Aminotransferase 21 U/L (6-35); Albumin Level 3.4 g/dL (3.5-5.1); Alkaline Phosphatase 68 U/L (38-126); Anion Gap 9 mmol/L (8-16); Aspartate Amino Transferase 35 U/L (14-36); Bilirubin,Total 0.7 mg/dL (0.2-1.3); Blood Urea Nitrogen 50 mg/dL (7-17); Calcium 8.3 mg/dL (8.4-10.2); Carbon Dioxide 25 mmol/L (22-30); Chloride 100 mmol/L (98-107); Estimated CRCL calculation 18 ml/min; Estimated Glomerular Filt Rate 21; Glucose 188 mg/dL (65-110); Potassium 4.3 mmol/L (3.4-5.0); Sodium 134 mmol/L (137-145)
[2022-05-03 12:02] LABS: Glucose Point of Care 265 mg/dl (65-105)
[2022-05-03] MEDS: INSULIN ASPART (*BKC) 100 UNITS/ML SUB-Q (12:14)
[2022-05-03 13:12] LABS: Creatine Kinase < 20 U/L (30-135); Magnesium 1.6 mg/dL (1.6-2.3)
[2022-05-03 13:21] LABS: Complement C3 113 mg/dL (88-165)
--- NOTE | 2022-05-03 15:21 | PCOTNOTE ---
The OT treatment was unable to be completed 05/03/22. Will continue plan of care for OT.
[2022-05-03 17:25] LABS: Glucose Point of Care 170 mg/dl (65-105)
[2022-05-03] MEDS: TOLNAFTATE 1% POWDER 45 GM BTL 1 APPLIC TOPICAL (21:21)
[2022-05-03] MEDS: TAMOXIFEN CITRATE (*CHEMO) 10 MG TABLET 20 MG PO (21:21)
[2022-05-03] MEDS: ATORVASTATIN 40 MG TABLET PO (21:22)
[2022-05-03] MEDS: ACETAMINOPHEN 500 MG TABLET PO (21:25)
[2022-05-03 21:39] LABS: Glucose Point of Care 209 mg/dl (65-105)
[2022-05-04] VITALS (16 sets, daily range): BP systolic 90–130; BP diastolic 41–83; PULSE 66–92; RESP 14–20; TEMP 36.3–36.9; O2SAT 91–98
[2022-05-04] MEDS: SALINE LOCK FLUSH 10 ML IV PUSH ×4 (05:24→21:46)
[2022-05-04 05:53] LABS: Alanine Aminotransferase 20 U/L (6-35); Albumin Level 2.8 g/dL (3.5-5.1); Alkaline Phosphatase 65 U/L (38-126); Anion Gap 5 mmol/L (8-16); Aspartate Amino Transferase 31 U/L (14-36); Bilirubin,Total 0.4 mg/dL (0.2-1.3); Blood Urea Nitrogen 53 mg/dL (7-17); Calcium 7.9 mg/dL (8.4-10.2); Carbon Dioxide 25 mmol/L (22-30); Chloride 102 mmol/L (98-107); Estimated CRCL calculation 18 ml/min; Estimated Glomerular Filt Rate 22; Glucose 148 mg/dL (65-110); Potassium 4.2 mmol/L (3.4-5.0); Sodium 132 mmol/L (137-145)
[2022-05-04 06:01] LABS: Basophils Percent Auto 0.4 % (0.2-1.2); Eosinophils Absolute Auto 0.1 K/mm3 (0-0.3); Eosinophils Percent Auto 0.9 % (0-4.4); Hematocrit 30.6 % (37.0-47.0); Hemoglobin 9.9 g/dL (12.0-15.0); Immature Granulocyte Absolute 0.02 K/mm3 (0.00-0.031); Immature Granulocyte Percent A 0.2 % (0-0.5); Immature Platelet Fraction Pct 11.3 % (0.9-11.2); Lymphocytes Absolute Auto 1.22 K/mm3 (0.9-3.2); Lymphocytes Percent Auto 14.4 % (18.3-44.2); Mean Corpuscular HGB Conc 32.4 g/dl (32-36); Mean Corpuscular Hemoglobin 28.3 pg (26-34); Mean Corpuscular Volume 87.4 fl (80-100); Monocytes Absolute Auto 0.8 K/mm3 (0.1-0.6); Monocytes Percent Auto 9.5 % (2.6-8.5); Neutrophils Absolute Auto 6.3 K/mm3 (1.3-6.7); Neutrophils Percent Auto 74.6 % (45.5-73.1); Platelet Count Result 131 k/mm3 (150-375); White Blood Count 8.5 K/mm3 (4.5-10.0)
--- NOTE | 2022-05-04 08:06 | PM.CNNEP ---
Assessment and Plan Assessment and plan (1) JENNIFER (acute kidney injury): Code(s): N17.9 - Acute kidney failure, unspecified Status: Acute Assessment and Plan: The patient has acute kidney injury. She had a normal creatinine when she was admitted. She had contrast on the and . On the the creatinine aditya a 1.7 and has risen gradually to 2.3 by yesterday so renal consultation was requested. The patient has no past history of kidney disease. She has no kidney symptoms. The renal ultrasound shows the 6cm solid right upper pole mass but no hydro. UA is bland. It shows some glucose and some bilirubin with a few white cells. Urine electrolytes are pre renal. CPK is normal. Most likely the patient has contrast nephropathy. Today's creatinine came down a little bit at 2.2. This usually runs for a few days and then spontaneously improved. Will continue to watch the creatinine. The patient has volume overload by heart pressures during the catheterization and also by chest x-ray. However she is not short of breath, she lies flat comfortably, and is not on oxygen so I think we can wait on diuretics until the kidney function gets a little bit better. Since the creatinine came down a little bit we can continue the sacubitril/valsartan and since her potassium is okay we can continue his spironolactone for now but will keep an eye on the potassium with daily draws. (2) Heart failure with reduced ejection fraction: Code(s): I50.20 - Unspecified systolic (congestive) heart failure Status: Acute Assessment and Plan: The patient has an EF of only 25-30%. She is on medications for this (3) Elevated troponin: Code(s): R77.8 - Other specified abnormalities of plasma proteins Status: Acute Assessment and Plan: Components were elevated. This is a very a type 2 process. (4) PAF (paroxysmal atrial fibrillation): Code(s): I48.0 - Paroxysmal atrial fibrillation Status: Acute Assessment and Plan: Heart rate is well controlled (5) Esophagitis with gastritis: Code(s): K29.70 - Gastritis, unspecified, without bleeding; K20.90 - Esophagitis, unspecified without bleeding Status: Acute Assessment and Plan: She has a history of GI bleeding. She had esophagitis on her CT scan. She is getting IV PPIs. (6) Pulmonary edema: Qualifiers: Chronicity: acute Qualified Code(s): J81.0 - Acute pulmonary edema Code(s): J81.1 - Chronic pulmonary edema Status: Acute Assessment and Plan: Will give diuretics once the creatinine comes down a little bit since she has very few symptoms. (7) Nausea, vomiting, and diarrhea: Code(s): R11.2 - Nausea with vomiting, unspecified; R19.7 - Diarrhea, unspecified Status: Acute Assessment and Plan: This is improved (8) Cirrhosis: Code(s): K74.60 - Unspecified cirrhosis of liver Status: Acute Assessment and Plan: This is a new diagnosis (9) Renal mass: Code(s): N28.89 - Other specified disorders of kidney and ureter Status: Acute Assessment and Plan: The patient has a renal mass. She is seeing Urology as an outpatient (10) Dyslipidemia: Code(s): E78.5 - Hyperlipidemia, unspecified Status: Acute Assessment and Plan: She is on atorvastatin (11) Anemia, due to inadequate iron intake: Code(s): D50.8 - Other iron deficiency anemias Status: Acute Assessment and Plan: Hemoglobin is 9.9. She is getting oral iron (12) Thrombocytopenia: Code(s): D69.6 - Thrombocytopenia, unspecified Status: Acute Assessment and Plan: This is low but stable History of Present Illness Reason for Consult Consult date: 05/04/22 Chief Complaint Chief complaint: Elevated Troponin History of Present Illness Narrative: Jackie is a very pleasant 77-year-old lady who has multiple medical prob
[2022-05-04 08:24] LABS: Glucose Point of Care 164 mg/dl (65-105)
--- NOTE | 2022-05-04 08:28 | PM.IMPN ---
Progress Note: A&P Assessment and Plan (1) Non-STEMI (non-ST elevated myocardial infarction): Code(s): I21.4 - Non-ST elevation (NSTEMI) myocardial infarction Status: Acute Assessment and Plan: -[facility] showing patent prox LAD stent and no other significant disease -cardiology suspecting Takotsubo cardiomyopathy -NSTEMI from Type II [place] -continue Entresto, Jardiance, Toprol -Lasix and Aldactone on hold due to rising Cr (2) Pulmonary edema: Qualifiers: Chronicity: acute Qualified Code(s): J81.0 - Acute pulmonary edema Code(s): J81.1 - Chronic pulmonary edema Status: Acute Assessment and Plan: -CT chest showing CMG, diffuse bilateral pulmonary infiltrates and mild bilateral effusions -I/O inaccurate -Lasix on hold now for elevated Cr. -Follow. (3) JENNIFER (acute kidney injury): Code(s): N17.9 - Acute kidney failure, unspecified Status: Acute Assessment and Plan: -creatinine about the same today as yesterday, likely ATN, monitor -[place] related to diuretic therapy and/or contrast exposure -nephrology consult appreciated (4) PAF (paroxysmal atrial fibrillation): Code(s): I48.0 - Paroxysmal atrial fibrillation Status: Acute Assessment and Plan: -tele showing AFib -appreciate cardio consult -has a hx of PAF -rate controlled unless she is active -not on anticoagulation -metoprolol advanced to 50 mg daily -monitor on tele (5) Cirrhosis: Code(s): K74.60 - Unspecified cirrhosis of liver Status: Acute Assessment and Plan: -CT scan showing cirrhosis -stable. INR 1.3. LFTs noted -follow-up with GI as outpatient (6) Esophagitis with gastritis: Code(s): K29.70 - Gastritis, unspecified, without bleeding; K20.90 - Esophagitis, unspecified without bleeding Status: Acute Assessment and Plan: -CT scan showing esophagitis/gastritis -she was having chest pain she feels associated with acid reflux -was on protonix on admission -continue PPI. May need EGD (7) Thrombocytopenia: Code(s): D69.6 - Thrombocytopenia, unspecified Status: Acute Assessment and Plan: -Plt count fluctuating between 100-150Ks -probably related to sequestration from her cirrhosis -follow (8) Hx of breast cancer: Code(s): Z85.3 - Personal history of malignant neoplasm of breast Status: Acute Assessment and Plan: -CT chest showing soft tissue thickening overlying retraction to the left breast -follow-up with outpatient oncologist (9) Renal mass: Code(s): N28.89 - Other specified disorders of kidney and ureter Status: Acute Assessment and Plan: -CT showing right renal mass -MRI 04/04/22 showing right RCC -follow up with oncology Plan Discharge soon when kidneys return to normal function DVT prophylaxis with SCDs GI prophylaxis with PPI Code status full code Subjective Date/time seen: 05/04/22 08:28 Interval history: No overnight events noted. No chest pain or shortness of breath. No nausea, vomiting or diarrhea. No fevers or chills. Review of Systems Review of Systems: 12 point review of systems was assessed and was negative except as noted in the HPI Exam Narrative: General: No acute distress, alert and oriented per baseline HEENT: Atraumatic, normocephalic, mucous membranes moist CV: Regular rate and rhythm, S1, S2 Lungs: Clear to auscultation bilaterally, no rales or crackles noted, no wheezes, good air entry Abdomen: Soft, nontender, nondistended Extremities: Normal to inspection Skin: No rashes noted, no lesions or wounds seen Psych: Euthymic, normal affect Objective Data Vital Signs Vital Signs: Vital Signs - 24 hr 05/03/22 08:54 05/03/22 08:45 05/03/22 10:00 Temperature Pulse Rate 92 90 88 Respiratory Rate Blood Pressure Pulse Oximetry Oxygen Delivery 05/03/22 12:00 05/03/22 12:00 1
[2022-05-04] MEDS: OMEGA 3 POLYUNSAT FATTY ACIDS 1 GM CAP PO (08:52)
[2022-05-04] MEDS: FERROUS SULFATE 324 MG TABLET PO (08:53)
[2022-05-04] MEDS: THERAPEUTIC MULTIVITAMINS/MINERALS TAB (*BKC) 1 TABLET PO (08:53)
[2022-05-04] MEDS: METOPROLOL SUCCINATE EXT REL 50 MG TABCR PO (08:54)
[2022-05-04] MEDS: EMPAGLIFLOZIN 10 MG TABLET PO (08:54)
[2022-05-04] MEDS: SACUBITRIL/VALSARTAN 24-26 MG TABLET 1 TAB PO ×2 (08:54→20:43)
[2022-05-04] MEDS: ASPIRIN 81 MG ENTERIC TABLET PO (08:55)
[2022-05-04] MEDS: PANTOPRAZOLE SODIUM IV 40 MG VIAL IV PUSH ×2 (08:55→17:05)
[2022-05-04] MEDS: ACIDOPHILUS/BULGARICUS CHEWABLE TABLET 1 TABLET BY MOUTH (08:55)
--- NOTE | 2022-05-04 11:40 | PM.PNCARD ---
Progress Note: A&P Assessment and Plan (1) Non-STEMI (non-ST elevated myocardial infarction): Code(s): I21.4 - Non-ST elevation (NSTEMI) myocardial infarction Status: Acute Assessment and Plan: Cardiac cath showed nonobstructive coronary artery disease with patent LAD stent. This appears to be takotsubo cardiomyopathy now. LVEDP is significantly elevated at 41mmHg. TTE 04/29 showed: 1. Complete two-dimensional, color flow and Doppler transthoracic echocardiogram is performed. 2. Left ventricular systolic function is severely reduced, estimated at 20-25%. 3. There is hypokinesis of the mid inferoseptum and mid inferolateral esteban. There is akinesis of the apical septum, apical cap, apical lateral, mid anteroseptum, and mid anterolateral esteban. Regional wall motion abnormalities consistent with either an LAD infarction or takotsubo cardiomyopathy. 4. Right ventricular systolic function is normal. 5. Right atrial chamber dimension is mildly enlarged. 6. There is moderate aortic valve calcification. 7. There is mild to moderate aortic valve regurgitation. 8. The mitral valve annulus is severely calcified. 9. The mitral valve has thickened leaflets. 10. There is trace mitral valve regurgitation. 11. There is moderate tricuspid valve regurgitation. 12. Dilated inferior vena cava with no collapse upon inspiration consistent with elevated right atrial pressure, 15 mmHg. 13. Left pleural effusion is present. For CAD, continue with ASA and statin. For cardiomyopathy: Continue with Entresto, Jardiance, and Toprol XL Given JENNIFER, Lasix and Spironolactone were discontinued. Watch renal function, JENNIFER likely due to contrast from cardiac cath and diuretics. SCr now stabilizing off. When JENNIFER resolves, would resume Aldactone. Will need to resume low-dose furosemide on discharge. (2) PAF (paroxysmal atrial fibrillation): Code(s): I48.0 - Paroxysmal atrial fibrillation Status: Acute Assessment and Plan: S/p Watchman. Given recent diagnosis of cirrhosis, we stopped her Amiodarone. Continue beta-allan (3) Cirrhosis: Code(s): K74.60 - Unspecified cirrhosis of liver Status: Acute Assessment and Plan: Recent diagnosis. Management as per hospitalist. (4) GI bleed: Code(s): K92.2 - Gastrointestinal hemorrhage, unspecified Status: Acute Assessment and Plan: History of multiple bleeding gastric polyps. (5) Heart failure with reduced ejection fraction: Code(s): I50.20 - Unspecified systolic (congestive) heart failure Status: Acute Subjective Date/time seen: 05/04/22 11:40 Interval history: Reason for visit: NSTEMI, HFrEF History: Patient is a 77-year-old female patient Dr. Moses who has a history of atrial fibrillation status post Watchman.? She also has LAD stent in 2019.? She has a multitude of other concerning issues at this point including a left renal cell carcinoma and she is scheduled to see urology in early May.? She fell last Monday and since then has had progressively worsening balance issues and dizziness and lightheadedness.? She however yesterday due to issues of nausea vomiting and generalized weakness and lack of balance called 911.? Whenever she was in the ambulance she started to develop back pain.? Pain was significant radiating across her shoulders.? She was also quite short of breath.? She came to the hospital for further workup evaluation.? Troponins were elevated.? EKG did not show any acute abnormalities.? Eventually she agreed to take nitroglycerin and was given furosemide.? Symptoms of back and shoulder pain as well as shortness of breath did improve with nitro.? CT scan of the chest was performed which did not show any pulmonary embolism Date of service 04/29/2022: Patient is now agreeable to receive Heparin and undergo cardiac cath. Patient states she is feeling better since admission. Denies chest pain. Denies shortness of breath this
[2022-05-04 12:27] LABS: Glucose Point of Care 203 mg/dl (65-105)
[2022-05-04] MEDS: INSULIN ASPART (*BKC) 100 UNITS/ML SUB-Q ×2 (12:53→17:06)
[2022-05-04 17:28] LABS: Glucose Point of Care 216 mg/dl (65-105)
--- NOTE | 2022-05-04 18:13 | PC.NURSE ---
Transferred to room 325-via bed accompanied by staff and . pt med/surg tele status- report given to Jodee DUKES- personal belongings and appropriate docuemtation sent with
--- NOTE | 2022-05-04 18:30 | PC.NURSE ---
This patient, Jackie Waddell, was received from [facility]1 on 05/04/22 at 1800. Patient/family oriented to unit policies and routines. Report received from ROSELINE Brunner.
[2022-05-04] MEDS: TAMOXIFEN CITRATE (*CHEMO) 10 MG TABLET 20 MG PO (20:43)
[2022-05-04] MEDS: ATORVASTATIN 40 MG TABLET PO (20:43)
[2022-05-04] MEDS: TOLNAFTATE 1% POWDER 45 GM BTL 1 APPLIC TOPICAL (20:43)
[2022-05-05] VITALS (10 sets, daily range): BP systolic 92–142; BP diastolic 25–64; PULSE 71–83; RESP 12–20; TEMP 35.9–37.7; O2SAT 92–97
[2022-05-05 06:33] LABS: Basophils Percent Auto 0.4 % (0.2-1.2); Eosinophils Absolute Auto 0.1 K/mm3 (0-0.3); Eosinophils Percent Auto 0.8 % (0-4.4); Hematocrit 31.5 % (37.0-47.0); Hemoglobin 9.9 g/dL (12.0-15.0); Immature Granulocyte Absolute 0.03 K/mm3 (0.00-0.031); Immature Granulocyte Percent A 0.4 % (0-0.5); Immature Platelet Fraction Pct 10.2 % (0.9-11.2); Lymphocytes Absolute Auto 0.94 K/mm3 (0.9-3.2); Lymphocytes Percent Auto 11.2 % (18.3-44.2); Mean Corpuscular HGB Conc 31.4 g/dl (32-36); Mean Corpuscular Hemoglobin 27.7 pg (26-34); Mean Platelet Volume 12.8 fl (7.4-10.4); Monocytes Absolute Auto 0.7 K/mm3 (0.1-0.6); Monocytes Percent Auto 7.9 % (2.6-8.5); Neutrophils Absolute Auto 6.7 K/mm3 (1.3-6.7); Neutrophils Percent Auto 79.3 % (45.5-73.1); Platelet Count Result 133 k/mm3 (150-375); Red Blood Count 3.58 M/mm3 (4.2-5.4); Red Cell Distribution Width 12.9 % (11.5-14.5); White Blood Count 8.4 K/mm3 (4.5-10.0)
[2022-05-05 06:45] LABS: Alanine Aminotransferase 20 U/L (6-35); Albumin Level 2.9 g/dL (3.5-5.1); Alkaline Phosphatase 57 U/L (38-126); Anion Gap 6 mmol/L (8-16); Aspartate Amino Transferase 38 U/L (14-36); Bilirubin,Total 0.6 mg/dL (0.2-1.3); Blood Urea Nitrogen 48 mg/dL (7-17); Calcium 7.9 mg/dL (8.4-10.2); Carbon Dioxide 23 mmol/L (22-30); Chloride 103 mmol/L (98-107); Estimated CRCL calculation 20 ml/min; Estimated Glomerular Filt Rate 24; Glucose 130 mg/dL (65-110); Potassium 4.3 mmol/L (3.4-5.0); Sodium 132 mmol/L (137-145)
[2022-05-05 08:04] LABS: Glucose Point of Care 132 mg/dl (65-105)
[2022-05-05] MEDS: ACIDOPHILUS/BULGARICUS CHEWABLE TABLET 1 TABLET BY MOUTH (09:52)
[2022-05-05] MEDS: FERROUS SULFATE 324 MG TABLET PO (09:52)
[2022-05-05] MEDS: ASPIRIN 81 MG ENTERIC TABLET PO (09:53)
[2022-05-05] MEDS: EMPAGLIFLOZIN 10 MG TABLET PO (09:53)
[2022-05-05] MEDS: THERAPEUTIC MULTIVITAMINS/MINERALS TAB (*BKC) 1 TABLET PO (09:53)
[2022-05-05] MEDS: OMEGA 3 POLYUNSAT FATTY ACIDS 1 GM CAP PO (09:53)
[2022-05-05] MEDS: METOPROLOL SUCCINATE EXT REL 50 MG TABCR PO (09:55)
[2022-05-05] MEDS: PANTOPRAZOLE SODIUM IV 40 MG VIAL IV PUSH ×2 (09:59→16:47)
--- NOTE | 2022-05-05 10:08 | PM.IMPN ---
Progress Note: A&P Assessment and Plan (1) Non-STEMI (non-ST elevated myocardial infarction): Code(s): I21.4 - Non-ST elevation (NSTEMI) myocardial infarction Status: Acute Assessment and Plan: -[facility] showing patent prox LAD stent and no other significant disease -cardiology suspecting Takotsubo cardiomyopathy -NSTEMI from Type II [place] -continue Entresto, Jardiance, Toprol -Lasix and Aldactone on hold due to rising Cr, will need to restart discharge when kidney function resolves (2) Pulmonary edema: Qualifiers: Chronicity: acute Qualified Code(s): J81.0 - Acute pulmonary edema Code(s): J81.1 - Chronic pulmonary edema Status: Acute Assessment and Plan: -CT chest showing CMG, diffuse bilateral pulmonary infiltrates and mild bilateral effusions -I/O inaccurate -Lasix on hold now for elevated Cr. -Follow. (3) JENNIFER (acute kidney injury): Code(s): N17.9 - Acute kidney failure, unspecified Status: Acute Assessment and Plan: -creatinine continues to improve, likely ATN, monitor -[place] related to diuretic therapy and/or contrast exposure -nephrology consult appreciated (4) PAF (paroxysmal atrial fibrillation): Code(s): I48.0 - Paroxysmal atrial fibrillation Status: Acute Assessment and Plan: -tele showing AFib -appreciate cardio consult -has a hx of PAF -rate controlled unless she is active -not on anticoagulation -metoprolol advanced to 50 mg daily -monitor on tele (5) Cirrhosis: Code(s): K74.60 - Unspecified cirrhosis of liver Status: Acute Assessment and Plan: -CT scan showing cirrhosis -stable. INR 1.3. LFTs noted -follow-up with GI as outpatient (6) Esophagitis with gastritis: Code(s): K29.70 - Gastritis, unspecified, without bleeding; K20.90 - Esophagitis, unspecified without bleeding Status: Acute Assessment and Plan: -CT scan showing esophagitis/gastritis -she was having chest pain she feels associated with acid reflux -was on protonix on admission -continue PPI. May need EGD (7) Thrombocytopenia: Code(s): D69.6 - Thrombocytopenia, unspecified Status: Acute Assessment and Plan: -Plt count fluctuating between 100-150Ks -probably related to sequestration from her cirrhosis -follow (8) Hx of breast cancer: Code(s): Z85.3 - Personal history of malignant neoplasm of breast Status: Acute Assessment and Plan: -CT chest showing soft tissue thickening overlying retraction to the left breast -follow-up with outpatient oncologist (9) Renal mass: Code(s): N28.89 - Other specified disorders of kidney and ureter Status: Acute Assessment and Plan: -CT showing right renal mass -MRI 04/04/22 showing right RCC -follow up with oncology Plan Discharge soon when kidneys return to normal function DVT prophylaxis with SCDs GI prophylaxis with PPI Code status full code Subjective Date/time seen: 05/05/22 10:08 Interval history: No overnight events noted. No chest pain or shortness of breath. No nausea, vomiting or diarrhea. No fevers or chills. Review of Systems Review of Systems: 12 point review of systems was assessed and was negative except as noted in the HPI Exam Narrative: General: No acute distress, alert and oriented per baseline HEENT: Atraumatic, normocephalic, mucous membranes moist CV: Regular rate and rhythm, S1, S2 Lungs: Clear to auscultation bilaterally, no rales or crackles noted, no wheezes, good air entry Abdomen: Soft, nontender, nondistended Extremities: Normal to inspection Skin: No rashes noted, no lesions or wounds seen Psych: Euthymic, normal affect Objective Data Vital Signs Vital Signs: Vital Signs - 24 hr 05/04/22 12:00 05/04/22 12:15 05/04/22 14:13 Temperature 97.4 F L Pulse Rate 76 76 66 Respiratory Rate 18 Blood Pressure 130/83 Pulse Oxim
[2022-05-05] MEDS: SACUBITRIL/VALSARTAN 24-26 MG TABLET 1 TAB PO ×2 (10:37→20:11)
[2022-05-05] MEDS: TOLNAFTATE 1% POWDER 45 GM BTL 1 APPLIC TOPICAL ×2 (10:38→20:11)
--- NOTE | 2022-05-05 10:52 | PC.NURSE ---
pt. left room at 10:51 via bed for ultrasound.
--- NOTE | 2022-05-05 11:51 | PCOTNOTE ---
Attempted to see patient at this time, however patient was off floor for testing.
[2022-05-05 12:20] LABS: Glucose Point of Care 237 mg/dl (65-105)
[2022-05-05] MEDS: INSULIN ASPART (*BKC) 100 UNITS/ML SUB-Q (13:17)
--- NOTE | 2022-05-05 14:18 | PCOTNOTE ---
Attempted to see patient this pm, however patient in waiting room visiting with family. Pt reported already completing ADLs and wanted to visit with family from [place] at this time.
--- NOTE | 2022-05-05 16:11 | P.PNCROSS_ITS ---
Event Note Event Note Event Note: Pt not in room. D/W Dr Santana outside the room. creatinine better. I will s ign off.
[2022-05-05] MEDS: SALINE LOCK FLUSH 10 ML IV PUSH ×2 (16:47→21:48)
[2022-05-05 16:59] LABS: Glucose Point of Care 169 mg/dl (65-105)
[2022-05-05] MEDS: ATORVASTATIN 40 MG TABLET PO (20:11)
[2022-05-05] MEDS: TAMOXIFEN CITRATE (*CHEMO) 10 MG TABLET 20 MG PO (20:11)
[2022-05-05 22:02] LABS: Glucose Point of Care 210 mg/dl (65-105)
[2022-05-06] VITALS: PULSE 69
[2022-05-06 04:00] VITALS: BP 101/32; PULSE 79; PULSE 81; RESP 14; TEMP 36.1; O2SAT 93
[2022-05-06 07:36] LABS: Basophils Percent Auto 0.4 % (0.2-1.2); Eosinophils Absolute Auto 0.1 K/mm3 (0-0.3); Hematocrit 29.5 % (37.0-47.0); Hemoglobin 9.4 g/dL (12.0-15.0); Immature Granulocyte Absolute 0.02 K/mm3 (0.00-0.031); Immature Granulocyte Percent A 0.2 % (0-0.5); Lymphocytes Absolute Auto 1.06 K/mm3 (0.9-3.2); Lymphocytes Percent Auto 12.7 % (18.3-44.2); Mean Corpuscular HGB Conc 31.9 g/dl (32-36); Mean Corpuscular Hemoglobin 27.7 pg (26-34); Mean Platelet Volume 12.2 fl (7.4-10.4); Monocytes Absolute Auto 0.7 K/mm3 (0.1-0.6); Monocytes Percent Auto 7.9 % (2.6-8.5); Neutrophils Absolute Auto 6.5 K/mm3 (1.3-6.7); Neutrophils Percent Auto 77.8 % (45.5-73.1); Platelet Count Result 131 k/mm3 (150-375); Red Blood Count 3.39 M/mm3 (4.2-5.4); Red Cell Distribution Width 13.1 % (11.5-14.5); White Blood Count 8.3 K/mm3 (4.5-10.0)
[2022-05-06 07:49] LABS: Alanine Aminotransferase 21 U/L (6-35); Albumin Level 2.9 g/dL (3.5-5.1); Alkaline Phosphatase 51 U/L (38-126); Anion Gap 7 mmol/L (8-16); Aspartate Amino Transferase 45 U/L (14-36); Bilirubin,Total 0.7 mg/dL (0.2-1.3); Blood Urea Nitrogen 41 mg/dL (7-17); Calcium 7.9 mg/dL (8.4-10.2); Carbon Dioxide 22 mmol/L (22-30); Chloride 102 mmol/L (98-107); Estimated CRCL calculation 25 ml/min; Estimated Glomerular Filt Rate 31; Glucose 127 mg/dL (65-110); Potassium 4.8 mmol/L (3.4-5.0); Sodium 131 mmol/L (137-145)
[2022-05-06 08:00] VITALS: BP 123/63; PULSE 73; RESP 18; TEMP 36.8; O2SAT 93
[2022-05-06 09:33] LABS: Glucose Point of Care 123 mg/dl (65-105)
--- NOTE | 2022-05-06 09:46 | PM.PNCARD ---
Progress Note: A&P Assessment and Plan (1) Non-STEMI (non-ST elevated myocardial infarction): Code(s): I21.4 - Non-ST elevation (NSTEMI) myocardial infarction Status: Acute Assessment and Plan: Cardiac cath showed nonobstructive coronary artery disease with patent LAD stent. This appears to be takotsubo cardiomyopathy now. LVEDP is significantly elevated at 41mmHg. TTE 04/29 showed: 1. Complete two-dimensional, color flow and Doppler transthoracic echocardiogram is performed. 2. Left ventricular systolic function is severely reduced, estimated at 20-25%. 3. There is hypokinesis of the mid inferoseptum and mid inferolateral esteban. There is akinesis of the apical septum, apical cap, apical lateral, mid anteroseptum, and mid anterolateral esteban. Regional wall motion abnormalities consistent with either an LAD infarction or takotsubo cardiomyopathy. 4. Right ventricular systolic function is normal. 5. Right atrial chamber dimension is mildly enlarged. 6. There is moderate aortic valve calcification. 7. There is mild to moderate aortic valve regurgitation. 8. The mitral valve annulus is severely calcified. 9. The mitral valve has thickened leaflets. 10. There is trace mitral valve regurgitation. 11. There is moderate tricuspid valve regurgitation. 12. Dilated inferior vena cava with no collapse upon inspiration consistent with elevated right atrial pressure, 15 mmHg. 13. Left pleural effusion is present. For CAD, continue with ASA and statin. For cardiomyopathy: Continue with Entresto, Jardiance, and Toprol XL JENNIFER much better now, SCr down to 1.6. Cardiology will sign off at this time. We will have patient follow-up with us in clinic. Upon discharge, please discharge the patient with: Entresto Jardiance Toprol XL PRN Lasix to take if she gains more than 3 lbs in one day or more than 5 lbs over a week. (2) PAF (paroxysmal atrial fibrillation): Code(s): I48.0 - Paroxysmal atrial fibrillation Status: Acute Assessment and Plan: S/p Watchman. Given recent diagnosis of cirrhosis, we stopped her Amiodarone. Continue beta-allan (3) Cirrhosis: Code(s): K74.60 - Unspecified cirrhosis of liver Status: Acute Assessment and Plan: Recent diagnosis. Management as per hospitalist. (4) GI bleed: Code(s): K92.2 - Gastrointestinal hemorrhage, unspecified Status: Acute Assessment and Plan: History of multiple bleeding gastric polyps. (5) Heart failure with reduced ejection fraction: Code(s): I50.20 - Unspecified systolic (congestive) heart failure Status: Acute Plan Cardiology will sign off at this time. We will have patient follow-up with us in clinic. Upon discharge, please discharge the patient with: Entresto Jardiance Toprol XL PRN Lasix to take if she gains more than 3 lbs in one day or more than 5 lbs over a week. Subjective Date/time seen: 05/06/22 09:46 Interval history: Reason for visit: NSTEMI, HFrEF History: Patient is a 77-year-old female patient Dr. Moses who has a history of atrial fibrillation status post Watchman.? She also has LAD stent in 2019.? She has a multitude of other concerning issues at this point including a left renal cell carcinoma and she is scheduled to see urology in early May.? She fell last Monday and since then has had progressively worsening balance issues and dizziness and lightheadedness.? She however yesterday due to issues of nausea vomiting and generalized weakness and lack of balance called 911.? Whenever she was in the ambulance she started to develop back pain.? Pain was significant radiating across her shoulders.? She was also quite short of breath.? She came to the hospital for further workup evaluation.? Troponins were elevated.? EKG did not show any acute abnormalities.? Eventually she agreed to take nitroglycerin and was given furosemide.? Symptoms of back and shoulder pain as well as shortness of breath
--- NOTE | 2022-05-06 10:10 | PCNFU ---
Nutrition Follow-Up Complete: Inadequate oral intake related to loss of appetite as evidenced by MST 2. Goal:Adequate PO intake at least 75% meals - Meeting goal sometimes. Continue with same goal Pt current nutrition Heart healthy diet. Chocolate Glucerna BID. Intakes improved to 50-100% meals. Does not like food. 120 ml Glucerna. Nutrition recommendation: Agree with diet and supplement orders. Continue with current orders and care plan. Last recorded weight is 72.8 kg. Bowel Motility: +1 BM 05/04 Labs Reviewed: Hct 9.4, hCT 29.5, aLB 2.9, Na 131, eGFR 31, BUN 41, Creat 1.6, Glu 123. Labs improving Meds Noted: Jardiance, novolog, protonix Skin: WNL Additional Notes: Discharge to home soon per notes. Family brought in lunch yesterday and pt ate 100%. Refused dinner. Continue current care plan Monitoring intakes, weights, labs, plan of care Follow up in 3 days
[2022-05-06] MEDS: ACIDOPHILUS/BULGARICUS CHEWABLE TABLET 1 TABLET BY MOUTH (10:11)
[2022-05-06] MEDS: FERROUS SULFATE 324 MG TABLET PO (10:11)
[2022-05-06] MEDS: THERAPEUTIC MULTIVITAMINS/MINERALS TAB (*BKC) 1 TABLET PO (10:12)
[2022-05-06] MEDS: PANTOPRAZOLE SODIUM IV 40 MG VIAL IV PUSH (10:12)
[2022-05-06] MEDS: OMEGA 3 POLYUNSAT FATTY ACIDS 1 GM CAP PO (10:12)
[2022-05-06] MEDS: ASPIRIN 81 MG ENTERIC TABLET PO (10:12)
[2022-05-06] MEDS: EMPAGLIFLOZIN 10 MG TABLET PO (10:12)
[2022-05-06 10:13] VITALS: PULSE 72
[2022-05-06] MEDS: METOPROLOL SUCCINATE EXT REL 50 MG TABCR PO (10:13)
[2022-05-06] MEDS: TOLNAFTATE 1% POWDER 45 GM BTL 1 APPLIC TOPICAL (10:13)
[2022-05-06] MEDS: SACUBITRIL/VALSARTAN 24-26 MG TABLET 1 TAB PO (10:13)
--- NOTE | 2022-05-06 11:17 | PM.DS ---
DS: Admitting Diagnosis Discharge Date 05/06/22 Admitting Diagnosis Chest Pain DS: Discharge Diagnosis Discharge Diagnosis (1) Non-STEMI (non-ST elevated myocardial infarction): Code(s): I21.4 - Non-ST elevation (NSTEMI) myocardial infarction Status: Acute Assessment and Plan: -C showing patent prox LAD stent and no other significant disease -cardiology suspecting Takotsubo cardiomyopathy -NSTEMI from Type II TN -continue Entresto, Jardiance, Toprol -Lasix and Aldactone on hold due to rising Cr, will need to restart discharge when kidney function resolves (2) Pulmonary edema: Qualifiers: Chronicity: acute Qualified Code(s): J81.0 - Acute pulmonary edema Code(s): J81.1 - Chronic pulmonary edema Status: Acute Assessment and Plan: -CT chest showing CMG, diffuse bilateral pulmonary infiltrates and mild bilateral effusions -I/O inaccurate -Lasix on hold now for elevated Cr. -Follow. (3) JENNIFER (acute kidney injury): Code(s): N17.9 - Acute kidney failure, unspecified Status: Acute Assessment and Plan: -creatinine continues to improve, likely ATN, monitor -[place] related to diuretic therapy and/or contrast exposure -nephrology consult appreciated (4) PAF (paroxysmal atrial fibrillation): Code(s): I48.0 - Paroxysmal atrial fibrillation Status: Acute Assessment and Plan: -tele showing AFib -appreciate cardio consult -has a hx of PAF -rate controlled unless she is active -not on anticoagulation -metoprolol advanced to 50 mg daily -monitor on tele (5) Cirrhosis: Code(s): K74.60 - Unspecified cirrhosis of liver Status: Acute Assessment and Plan: -CT scan showing cirrhosis -stable. INR 1.3. LFTs noted -follow-up with GI as outpatient (6) Esophagitis with gastritis: Code(s): K29.70 - Gastritis, unspecified, without bleeding; K20.90 - Esophagitis, unspecified without bleeding Status: Acute Assessment and Plan: -CT scan showing esophagitis/gastritis -she was having chest pain she feels associated with acid reflux -was on protonix on admission -continue PPI. May need EGD (7) Thrombocytopenia: Code(s): D69.6 - Thrombocytopenia, unspecified Status: Acute Assessment and Plan: -Plt count fluctuating between 100-150Ks -probably related to sequestration from her cirrhosis -follow (8) Hx of breast cancer: Code(s): Z85.3 - Personal history of malignant neoplasm of breast Status: Acute Assessment and Plan: -CT chest showing soft tissue thickening overlying retraction to the left breast -follow-up with outpatient oncologist (9) Renal mass: Code(s): N28.89 - Other specified disorders of kidney and ureter Status: Acute Assessment and Plan: -CT showing right renal mass -MRI 04/04/22 showing right RCC -follow up with oncology Plan Discharge soon when kidneys return to normal function DVT prophylaxis with SCDs GI prophylaxis with PPI Code status full code DS: Summary Hospital Course Reason for hospitalization: Chest pain Hospital Course: 77 years old female was admitted for non ST-elevation TN and possible fluid filled. Patient was given medication treatment. Medications were adjusted. Patient gradually improved and did not have any complications during the stay in the hospital. Today patient is feeling better so patient discharged stable condition Status at Discharge Cognitive/behavioral status at discharge: Stable Time Spent with Patient Time attestation: Total time spent providing and/or coordinating discharge services: Exam Narrative: General: No acute distress, alert and oriented per baseline HEENT: Atraumatic, normocephalic, mucous membranes moist CV: Regular rate and rhythm, S1, S2 Lungs: Clear to auscultation bilaterally, no rales or crackles noted, no wheezes, good air entry Abdomen: So
[2022-05-06 12:00] VITALS: BP 116/44; PULSE 80; RESP 18; TEMP 36.2; O2SAT 97
[2022-05-06 12:26] LABS: Glucose Point of Care 194 mg/dl (65-105)
== END 2022-05-06 13:55 | disposition home health service (06) | DRG 280 ==
LOC: ANHED 19:59 → ANHIMU 21:16 → ANH3MEDSUR 05-04 17:51
PROVIDERS: Emergency Medicine; Hospitalist; Internal Medicine; Student in an Organized Health Care Education/Training Program; Admitting Provider Internal Medicine; Emergency Provider Emergency Medicine; PCP Internal Medicine; Visit Provider Internal Medicine
PROC: 4A023N7 Measurement of Cardiac Sampling and Pressure, Left Heart, Percutaneous Approach (ICD-10-PCS; CPT 93452; principal; 2022-04-29 10:00)
DX: I51.81 Takotsubo syndrome (principal); I21.A1 Myocardial infarction type 2; I50.21 Acute systolic (congestive) heart failure; J96.01 Acute respiratory failure with hypoxia; N17.9 Acute kidney failure, unspecified; C64.1 Malignant neoplasm of right kidney, except renal pelvis; I11.0 Hypertensive heart disease with heart failure; I48.0 Paroxysmal atrial fibrillation; N63.20 Unspecified lump in the left breast, unspecified quadrant; I25.10 Atherosclerotic heart disease of native coronary artery without angina pectoris; K74.60 Unspecified cirrhosis of liver; Z85.3 Personal history of malignant neoplasm of breast; Z79.899 Other long term (current) drug therapy; E11.9 Type 2 diabetes mellitus without complications; Z95.5 Presence of coronary angioplasty implant and graft; Z82.49 Family history of ischemic heart disease and other diseases of the circulatory system; Z80.41 Family history of malignant neoplasm of ovary; K29.70 Gastritis, unspecified, without bleeding; Z20.822 Contact with and (suspected) exposure to COVID-19; D69.6 Thrombocytopenia, unspecified
CPT/HCPCS: 36415; 36569; 70450; 71045; 71275; 73502; 73562; 74177; 76775; 80053; 81001; 82550; 82570; 82948; 83690; 83735; 83880; 84100; 84300; 84484; 85025; 85055; 85610; 85730; 85999; 86160; 87040; 87086; 87088; 87636; 93005; 93306; 93458; 96360; 96361; 96374; 96375; 96376; 97110; 97161; 97165; 97530; 99285; A9270; C1751; C1769; C1887; C1894; C9113; G0378; J1644; J1815; J1940; J2250; J3010; J7030; J7040; Q9967

== ENCOUNTER 2022-05-15 06:53 | Emergency (ER) | payer MEDICARE, SELFPAY ==
[2022-05-15] VITALS (23 sets, daily range): BP systolic 109–121; BP diastolic 57–75; PULSE 82–110; RESP 10–20; TEMP 36.4; O2SAT 91–100
--- NOTE | ~2022-05-15 | XR_ITS ---
EXAMINATION: XR chest 1V portable DATE: 05/15/2022 08:35 INDICATION: Chest pain. TECHNIQUE: A single frontal view of the chest was obtained. COMPARISON: Chest single view 04/27/2022, chest CT 04/28/2022 FINDINGS: There is no pneumonia, pleural effusion, or pneumothorax. Cardiomegaly is noted. There is a closure device in left atrial appendage. There are surgical clips in left axilla. IMPRESSION: 1. Cardiomegaly. Reviewed, dictated and finalized at location A. ICAL DAMAGE APPRAISER IMPRESSION: 1. Cardiomegaly.
--- NOTE | 2022-05-15 06:59 | ECG_ITS ---
Measurements Intervals [place] Rate: 100 P: [place]: 0 QRS: -18 QRSD: 101 T: 171 QT: 396 QTc: 511 Interpretive Statements ATRIAL FIBRILLATION WITH RAPID VENTRICULAR RESPONSE ST DEVIATION AND MODERATE T-WAVE ABNORMALITY, CONSIDER LATERAL ISCHEMIA [-0.1+ mV T- WAVE IN I/aVL/V5/V6] COMPARED TO ECG 05/02/2022 11:30:23 NO SIGNIFICANT DIFFERENCE Electronically Signed On 05-15-2022 8:42:19 [employer] by Julian Mallory M.D.
--- NOTE | 2022-05-15 08:28 | ED.GENADULT ---
HPI - General Adult General Chief complaint: Back Pain/Injury Stated complaint: Back & shoulder pains Time Seen by Provider: 05/15/22 07:58 History of Present Illness HPI narrative: This is a 77-year-old female with past medical history of CHF, diabetes, recently admitted with NSTEMI with suspected Takotsubo cardiomyopathy, presenting to the emergency department complaining of vomiting beginning approximately 2 and half hours ago. She denied blood in the vomit complains of some constipation but is able to pass gas. She states she felt some lightheadedness that has since resolved. She denies other upper respiratory congestion cough or shortness of breath. She denies chest pain. Related Data Home Medications Medication Instructions Recorded Confirmed atorvastatin 40 mg tablet 40 mg PO HS 04/30/19 04/27/22 tamoxifen 20 mg tablet 20 mg PO HS 04/30/19 04/27/22 furosemide 20 mg tablet 20 mg PO QAM 06/18/20 04/27/22 ascorbic acid (vitamin C) 250 mg 1,000 mg PO DAILY 09/29/20 04/27/22 tablet ferrous sulfate 325 mg (65 mg 325 mg PO BID 09/29/20 04/27/22 iron) tablet (Iron (ferrous sulfate)) lactobacillus combination no.4 3 3,000 mmu cells PO DAILY 05/18/21 04/27/22 billion cell capsule (Probiotic) multivitamin with minerals-folic 1 tablet PO DAILY 11/02/21 04/27/22 acid 0.4 mg tablet omega 9-pko-whg-fish oil 1,000 mg 1 cap PO DAILY 11/02/21 04/27/22 (120 mg-180 mg) capsule (Fish Oil) calcium polycarbophil 625 mg 1,250 mg PO BID PRN Constipation 01/10/22 04/27/22 tablet (FiberCon) metoprolol succinate 25 mg capsule 25 mg PO DAILY 03/21/22 04/27/22 sprinkle, ext. release 24 hr Allergies Allergy/AdvReac Type Severity Reaction Status Date / Time No Known Allergies Allergy Verified 04/27/22 18:01 Review of Systems Review of Systems: CONSTITUTIONAL: Denies fever, chills, or sweats. EYES: Denies visual changes, redness, or discharge. ENT: Denies rhinorrhea, congestion, sore throat, or otalgia. CARDIOVASCULAR: Denies chest pain, palpitations, or edema. RESPIRATORY: Denies cough or dyspnea. GASTROINTESTINAL: Nausea and vomiting denies abdominal pain or diarrhea. GENITOURINARY: Denies dysuria or hematuria. SKIN: Denies rash or itching. MUSCULOSKELETAL: Denies back pain, joint pain, or myalgia. NEUROLOGIC: Intermittent lightheadedness - improved denies headache, numbness, dizziness, or weakness. PSYCHIATRIC: Denies anxiety or depression. [facility] Past Medical History Medical History Arthritis BPPV (benign paroxysmal positional vertigo) CAD (coronary artery disease) Cirrhosis New diagnosis March 2022 CVA (cerebral vascular accident) DDD (degenerative disc disease) Diastolic dysfunction Echocardiogram 11/2021: Borderline left ventricular hypertrophy, overall good systolic function with EF of 63%, small area of the basal inferior wall hypokinesis, borderline global longitudinal strain, diastolic dysfunction, moderate left atrial enlargement, mild pulmonary hypertension DM (diabetes mellitus) Dyslipidemia Gastric polyps GERD (gastroesophageal reflux disease) Hiatal hernia History of colon polyps History of GI bleed Hx of breast cancer Stage II breast cancer with 1 positive lymph node status post chemotherapy and radiation Hypertension Hypovitaminosis D Obesity Paroxysmal atrial fibrillation Shingles Thrombocytopenia TIA (transient ischemic attack) Surgical History Surgical History History of cholecystectomy History of colonoscopy with polypectomy Most recent September 2020 History of dilation and curettage History of esophagogastroduodenoscopy (EGD) Most recent EGD 11/18/2021 demonstrated multiple gastric polyps several of which were removed. History of heart artery stent (~2018) LAD performed at [place] History of mastectomy (11/2011) Partial left breast History of removal of cyst from fing
[2022-05-15 08:39] LABS: Basophils Percent Auto 0.3 % (0.2-1.2); Eosinophils Percent Auto 0.1 % (0-4.4); Hematocrit 34.8 % (37.0-47.0); Hemoglobin 10.9 g/dL (12.0-15.0); Immature Granulocyte Absolute 0.02 K/mm3 (0.00-0.031); Immature Granulocyte Percent A 0.2 % (0-0.5); Immature Platelet Fraction Pct 11.7 % (0.9-11.2); Lymphocytes Absolute Auto 0.89 K/mm3 (0.9-3.2); Lymphocytes Percent Auto 9.7 % (18.3-44.2); Mean Corpuscular HGB Conc 31.3 g/dl (32-36); Mean Corpuscular Hemoglobin 27.9 pg (26-34); Mean Platelet Volume 13.1 fl (7.4-10.4); Monocytes Absolute Auto 0.6 K/mm3 (0.1-0.6); Monocytes Percent Auto 6.1 % (2.6-8.5); Neutrophils Absolute Auto 7.7 K/mm3 (1.3-6.7); Neutrophils Percent Auto 83.6 % (45.5-73.1); Platelet Count Result 99 k/mm3 (150-375); Red Blood Count 3.91 M/mm3 (4.2-5.4); Red Cell Distribution Width 13.2 % (11.5-14.5); White Blood Count 9.2 K/mm3 (4.5-10.0)
[2022-05-15] MEDS: SODIUM CHLORIDE 0.9% IV 500 ML 999 ML IV CONT (08:45)
[2022-05-15 08:47] LABS: Potassium 3.5 mmol/L (3.4-5.0)
[2022-05-15 08:59] LABS: NT Pro B Type Natriuretic Pept 2530 pg/mL (5-100); Troponin I 0.022 ng/mL (0.000-0.034)
[2022-05-15 09:16] LABS: Alanine Aminotransferase 22 U/L (6-35); Albumin Level 3.6 g/dL (3.5-5.1); Alkaline Phosphatase 95 U/L (38-126); Anion Gap 5 mmol/L (8-16); Aspartate Amino Transferase 38 U/L (14-36); Bilirubin,Total 0.6 mg/dL (0.2-1.3); Blood Urea Nitrogen 14 mg/dL (7-17); Calcium 8.7 mg/dL (8.4-10.2); Carbon Dioxide 28 mmol/L (22-30); Chloride 102 mmol/L (98-107); Estimated CRCL calculation 47 ml/min; Estimated Glomerular Filt Rate > 60; Glucose 133 mg/dL (65-110); Sodium 135 mmol/L (137-145)
[2022-05-15 09:25] LABS: Influenza A QL RT-PCR Negative (Negative); Influenza B QL RT-PCR Negative (Negative); SARS-CoV-2 RNA PCR Negative
[2022-05-15 11:23] LABS: Troponin I 0.033 ng/mL (0.000-0.034)
== END 2022-05-15 12:04 | disposition home or self-care (01) ==
PROVIDERS: Emergency Provider Preventive Medicine Aerospace Medicine; PCP Internal Medicine
DX: R11.2 Nausea with vomiting, unspecified (principal); I11.0 Hypertensive heart disease with heart failure; I50.9 Heart failure, unspecified; E11.9 Type 2 diabetes mellitus without complications; I48.0 Paroxysmal atrial fibrillation; I25.10 Atherosclerotic heart disease of native coronary artery without angina pectoris; Z86.73 Personal history of transient ischemic attack (TIA), and cerebral infarction without residual deficits; Z85.3 Personal history of malignant neoplasm of breast; Z20.822 Contact with and (suspected) exposure to COVID-19
CPT/HCPCS: 36415; 71045; 80053; 83880; 84484; 85025; 85055; 87502; 93005; 96360; 99284; J7040; U0003; U0005

== ENCOUNTER 2022-08-18 11:50 | Outpatient (CLI) | payer MEDICARE, SELFPAY ==
--- NOTE | ~2022-08-18 | MMUS_ITS ---
EXAMINATION: MM diagnostic lucinda BI w david, US breast LT complete HISTORY: Patient feels lump lateral to the left breast; the technologist indicates she was unable to get the far lateral area of concern near the axilla within the field of view of the mammogram TECHNIQUE: ML, MLO and CC 3-D tomosynthesis images of both breasts were performed and synthetic 2-D i mages were generated. Rotated lateral craniocaudal view of left breast. CAD analysis was submitted an d interpreted. High resolution complete left breast ultrasound examination including all 4 quadrants and subareolar area was performed. COMPARISON: 08/16/2021 diagnostic bilateral mammogram and limited right breast ultrasound examination 11/12/2020 unknown diagnostic mammography and bilateral complete breast ultrasound examination 01/16/2020 bilateral screening mammogram BREAST PARENCHYMAL COMPOSITION: There are scattered areas of fibroglandular density. FINDINGS: MAMMOGRAPHIC FINDINGS: Again noted is postoperative change of the left breast from partial mastectomy for breast cancer. Chronic bilateral prominent dystrophic calcifications are again noted. No interval suspicious mass, n ew architectural distortion, malignant calcification or new skin thickening or retraction of either b reast is detected. The technologist noted that the field of view of the mammographic examination including the rotated l ateral craniocaudal view did not include the area of clinical complaint, far laterally near the axill a ULTRASOUND: Shadowing is noted from calcifications of the left breast. No suspicious mass or shadowing of the left breast is detected otherwise. IMPRESSION: 1. BI-RADS Category 2: Benign 2. If there is any suspicious palpable mass, consider biopsy. Additional imaging if there is continue d clinical concern could include MR breast examination. BI-RADS Category 2: Benign finding(s). Reviewed, dictated and finalized at location A. IMPRESSION: 1. BI-RADS Category 2: Benign 2. If there is any suspicious palpable mass, consider biopsy. Additional imagin g if there is continued clinical concern could include MR breast examination. BI-RADS Category 2: Benign finding(s).
== END 2022-08-18 11:51 | disposition home or self-care (01) ==
PROVIDERS: PCP Internal Medicine; Visit Provider Nurse Practitioner Family
DX: C50.412 Malignant neoplasm of upper-outer quadrant of left female breast (principal); Z17.0 Estrogen receptor positive status [ER+]
CPT/HCPCS: 76641; 77062; 77066; G0279

== ENCOUNTER 2022-09-12 22:53 | Emergency (ER) | payer MEDICARE, SELFPAY ==
--- NOTE | ~2022-09-12 | XR_ITS ---
Clinical Indication: Chest pain PA and lateral views of the chest: Comparison: 05/15/2022 Findings: The lungs are clear, without evidence of focal consolidation or pleural effusion. Cardiome diastinal silhouette is stable. Calcified AP window region lymph node is present. Left atrial closure device is unchanged. Bones and soft tissues are unremarkable. Impression: Clear lungs. No acute abnormality. Reviewed, dictated and finalized at location . Impression: Clear lungs. No acute abnormality.
--- NOTE | ~2022-09-12 | CT_ITS ---
Clinical Indication: Chest pain CT Scan of the Chest with Contrast: Technique: Contiguous sections were acquired throughout the chest after intravenous administration of 100 cc of Omnipaque 350. Dose reduction technique was used on this scan by utilizing automated expos ure control and iterative reconstruction technique. The dose-length product (DLP) was 419.73 mGy-cm. COMPARISON: 04/28/2022 Findings: There is no evidence of any significant mediastinal, hilar or axillary lymphadenopathy. There is no f illing defect in the pulmonary arterial tree to suggest pulmonary embolus. There is no evidence of ao rtic dissection or aneurysm. Left atrial appendage closure device present. Minimal bilateral pleural effusions are present. No pericardial effusion. The lungs are clear. No pulmonary nodules or infiltrates are noted. Images through the upper abdomen reveal questionable nodular contour of the liver, with minimal perih epatic ascites. Impression: No evidence of pulmonary embolus, aortic dissection, or aortic aneurysm. Minimal bilateral pleural effusions. Suspected cirrhotic change of the liver with minimal perihepatic ascites. Reviewed, dictated and finalized at [facility]. Impression: No evidence of pulmonary embolus, aortic dissection, or aortic aneurysm. Minimal bilateral pleural effusions. Suspected cirrhotic change of the liver with minimal perihepatic ascites.
--- NOTE | 2022-09-12 22:54 | ECG_ITS ---
Measurements Intervals [place] Rate: 109 P: [place]: 0 QRS: -43 QRSD: 80 T: 69 QT: 296 QTc: 399 Interpretive Statements ATRIAL FIBRILLATION WITH RAPID VENTRICULAR RESPONSE LEFT AXIS DEVIATION LOW QRS VOLTAGE IN PRECORDIAL LEADS PATTERN CONSISTENT WITH PULMONARY DISEASE ABNORMAL ECG COMPARED TO ECG 05/15/2022 07:04:06 ST ABNORMALITY NO LONGER APPRECIATED Electronically Signed On 09-13-2022 16:11:53 CDT by Frank Moses M.D.
[2022-09-12 23:02] VITALS: BP 107/53; PULSE 95; RESP 18; TEMP 36.8; O2SAT 99
[2022-09-12 23:11] LABS: Basophils Percent Auto 0.3 % (0.2-1.2); Eosinophils Percent Auto 0.1 % (0-4.4); Hematocrit 33.3 % (37.0-47.0); Hemoglobin 10.5 g/dL (12.0-15.0); Immature Granulocyte Absolute 0.05 K/mm3 (0.00-0.031); Immature Granulocyte Percent A 0.3 % (0-0.5); Lymphocytes Absolute Auto 1.15 K/mm3 (0.9-3.2); Lymphocytes Percent Auto 7.5 % (18.3-44.2); Mean Corpuscular HGB Conc 31.5 g/dl (32-36); Mean Corpuscular Volume 88.8 fl (80-100); Mean Platelet Volume 12.6 fl (7.4-10.4); Monocytes Percent Auto 6.7 % (2.6-8.5); Neutrophils Percent Auto 85.1 % (45.5-73.1); Platelet Count Result 114 k/mm3 (150-375); Red Blood Count 3.75 M/mm3 (4.2-5.4); White Blood Count 15.3 K/mm3 (4.5-10.0)
[2022-09-12 23:21] LABS: Alanine Aminotransferase 18 U/L (6-35); Alkaline Phosphatase 104 U/L (38-126); Anion Gap 8 mmol/L (8-16); Aspartate Amino Transferase 25 U/L (14-36); Bilirubin,Total 0.9 mg/dL (0.2-1.3); Blood Urea Nitrogen 22 mg/dL (7-17); Carbon Dioxide 28 mmol/L (22-30); Chloride 99 mmol/L (98-107); Estimated CRCL calculation 24 ml/min; Estimated Glomerular Filt Rate 37; Glucose 123 mg/dL (65-110); Lipase 59 U/L (23-300); Potassium 3.9 mmol/L (3.4-5.0); Sodium 135 mmol/L (137-145)
[2022-09-12 23:22] LABS: INR 1.3; Prothrombin Time 15.6 Seconds (11.1-14.7)
[2022-09-12 23:23] LABS: Partial Thromboplastin Time 30.3 SECONDS (22.3-36.8)
[2022-09-12 23:32] LABS: Troponin I < 0.012 ng/mL (0.000-0.034)
--- NOTE | 2022-09-12 23:54 | ED.CHESTPAIN ---
HPI - Chest Pain General Chief Complaint: Chest Pain <Asim Richter PA-C - Last Filed: 09/13/22 02:55> Stated Complaint: Chest pain <Asim Richter PA-C - Last Filed: 09/13/22 02:55> Time Seen by Provider: 09/12/22 23:24 <Asim Richter PA-C - Last Filed: 09/13/22 02:55> Source: patient <PHILIPPE Bell Last Filed: 09/13/22 02:55> Mode of arrival: ambulatory <PHILIPPE Bell Last Filed: 09/13/22 02:55> Limitations: no limitations <Asim Richter PA-C - Last Filed: 09/13/22 02:55> History of Present Illness HPI narrative: This is a 77-year-old female presents to the ED with PMH of CHF, CAD with stent placement, A-fib, HTN, DM with chief complaint of chest pain x4 days. States she went to [facility] prior to this and sat in the waiting room for 4 hours without being seen. She does note that they gave her 324 of aspirin and this brought her pain from an 8 to a 3. Patient states that the pain has been constant for 4 days and worsening today which is why she wanted to get evaluated. Patient states that the pain is in the upper chest bilaterally and extends into the upper back. Describes it as a pressure. Especially worse with deeper breathing. Denies specific tearing sensation. Endorses shortness of breath. Denies headache, LOC, sweats, nausea, vomiting, abdominal pain. PSH past surgical history of right nephrectomy <sAim Richter PA-C - Last Filed: 09/13/22 02:55> Related Data Home Medications: Home Medications Medication Instructions Recorded Confirmed atorvastatin 40 mg tablet 40 mg PO HS 04/30/19 08/16/22 tamoxifen 20 mg tablet 20 mg PO HS 04/30/19 08/16/22 ascorbic acid (vitamin C) 250 mg 1,000 mg PO DAILY 09/29/20 08/16/22 tablet ferrous sulfate 325 mg (65 mg 325 mg PO BID 09/29/20 08/16/22 iron) tablet (Iron (ferrous sulfate)) lactobacillus combination no.4 3 3,000 mmu cells PO DAILY 05/18/21 08/16/22 billion cell capsule (Probiotic) multivitamin with minerals-folic 1 tablet PO DAILY 11/02/21 08/16/22 acid 0.4 mg tablet omega 6-rvs-rps-fish oil 1,000 mg 1 cap PO DAILY 11/02/21 08/16/22 (120 mg-180 mg) capsule (Fish Oil) calcium polycarbophil 625 mg 1,250 mg PO BID PRN Constipation 01/10/22 08/16/22 tablet (FiberCon) coenzyme Q10 200 mg/gram oral mg PO DAILY 08/16/22 08/16/22 powder (H2Q CoQ10) furosemide 20 mg tablet 20 mg PO BID 08/16/22 08/16/22 metoprolol succinate 25 mg capsule 50 mg PO DAILY 08/16/22 08/16/22 sprinkle, ext. release 24 hr <Asim Richter PA-C - Last Filed: 09/13/22 02:55> Allergies/Adverse Reactions: Allergies Allergy/AdvReac Type Severity Reaction Status Date / Time No Known Allergies Allergy Verified 09/13/22 00:03 <Asim Richter PA-C - Last Filed: 09/13/22 02:55> Review of Systems Review of Systems: CONSTITUTIONAL: Denies fever, chills, or sweats. EYES: Denies visual changes, redness, or discharge. ENT: Denies rhinorrhea, congestion, sore throat, or otalgia. CARDIOVASCULAR: Endorses chest pain. Denies palpitations, or edema. RESPIRATORY: Endorses dyspnea. Denies cough. GASTROINTESTINAL: Denies abdominal pain, nausea, vomiting, or diarrhea. GENITOURINARY: Denies dysuria or hematuria. SKIN: Denies rash or itching. MUSCULOSKELETAL: Denies back pain, joint pain, or myalgia. NEUROLOGIC: Denies headache, numbness, dizziness, or weakness. PSYCHIATRIC: Denies anxiety or depression. <Asim Richter PA-C - Last Filed: 09/13/22 02:55> [facility] Past Medical History Medical History: Medical History (Updated 09/13/22 @ 01:55 by Asim Richter PA-C) Arthritis BPPV (benign paroxysmal positional vertigo) CAD (coronary artery disease) CHF (congestive heart failure) Cirrhosis New diagnosis March 2022 CVA (cerebral vascular accident) DDD (degenerative disc disease) Diastolic dysfunction Echocardiogram 11/2021: Borderline left ventricular hypertrophy, overall good systolic function with EF of 63
[2022-09-13] VITALS: BP 100/66; PULSE 102; PULSE 104; RESP 16; TEMP 37.3; O2SAT 97
--- NOTE | 2022-09-13 00:40 | PC.NURSE ---
RN attempted iv access, unsuccessful.
--- NOTE | 2022-09-13 01:43 | PC.NURSE ---
Spoke to Delia in Chemistry and Added a BNP.
[2022-09-13 02:11] LABS: NT Pro B Type Natriuretic Pept 4490 pg/mL (19.9-100)
[2022-09-13 02:58] VITALS: BP 98/66; PULSE 99; RESP 16; O2SAT 98
== END 2022-09-13 02:56 | disposition home or self-care (01) ==
PROVIDERS: Physician Assistant; Emergency Provider Emergency Medicine; PCP Internal Medicine
DX: I11.0 Hypertensive heart disease with heart failure (principal); I50.9 Heart failure, unspecified; I25.10 Atherosclerotic heart disease of native coronary artery without angina pectoris; I48.0 Paroxysmal atrial fibrillation; E11.9 Type 2 diabetes mellitus without complications; E78.5 Hyperlipidemia, unspecified; K44.9 Diaphragmatic hernia without obstruction or gangrene; I25.2 Old myocardial infarction; K21.9 Gastro-esophageal reflux disease without esophagitis; M19.90 Unspecified osteoarthritis, unspecified site; E66.9 Obesity, unspecified; Z68.26 Body mass index [BMI] 26.0-26.9, adult; Z85.3 Personal history of malignant neoplasm of breast; Z86.010 Personal history of colon polyps; Z86.73 Personal history of transient ischemic attack (TIA), and cerebral infarction without residual deficits; Z92.21 Personal history of antineoplastic chemotherapy; Z92.3 Personal history of irradiation; Z95.5 Presence of coronary angioplasty implant and graft; Z90.12 Acquired absence of left breast and nipple; Z90.5 Acquired absence of kidney; Z98.42 Cataract extraction status, left eye; Z98.41 Cataract extraction status, right eye; R94.31 Abnormal electrocardiogram [ECG] [EKG]; R93.2 Abnormal findings on diagnostic imaging of liver and biliary tract; Z79.4 Long term (current) use of insulin; Z79.82 Long term (current) use of aspirin
CPT/HCPCS: 36415; 71046; 71275; 80053; 83690; 83880; 84484; 85025; 85610; 85730; 93005; 99284; Q9967

== ENCOUNTER 2022-09-16 14:11 | Outpatient (CLI) | payer MEDICARE, SELFPAY ==
[2022-09-16 14:41] LABS: Alanine Aminotransferase 20 U/L (6-35); Albumin Level 3.5 g/dL (3.5-5.1); Alkaline Phosphatase 120 U/L (38-126); Anion Gap 8 mmol/L (8-16); Aspartate Amino Transferase 25 U/L (14-36); Bilirubin,Total 0.7 mg/dL (0.2-1.3); Blood Urea Nitrogen 40 mg/dL (7-17); Calcium 8.7 mg/dL (8.4-10.2); Carbon Dioxide 28 mmol/L (22-30); Chloride 97 mmol/L (98-107); Estimated Glomerular Filt Rate 26; Glucose 171 mg/dL (65-110); Potassium 3.7 mmol/L (3.4-5.0); Sodium 133 mmol/L (137-145)
== END 2022-09-16 14:12 | disposition home or self-care (01) ==
PROVIDERS: PCP Internal Medicine; Visit Provider Nurse Practitioner Family
DX: I50.9 Heart failure, unspecified (principal)
CPT/HCPCS: 36415; 80053

== ENCOUNTER 2022-12-12 09:01 | Outpatient (CLI) | payer MEDICARE, SELFPAY ==
[2022-12-12 10:08] LABS: Hematocrit 36.9 % (37.0-47.0); Hemoglobin 11.5 g/dL (12.0-15.0); Mean Corpuscular HGB Conc 31.2 g/dl (32-36); Mean Corpuscular Hemoglobin 27.6 pg (26-34); Mean Corpuscular Volume 88.7 fl (80-100); Mean Platelet Volume 12.8 fl (7.4-10.4); Platelet Count Result 124 k/mm3 (150-375); Red Blood Count 4.16 M/mm3 (4.2-5.4); Red Cell Distribution Width 13.3 % (11.5-14.5); White Blood Count 7.3 K/mm3 (4.5-10.0)
[2022-12-12 10:21] LABS: Alanine Aminotransferase 17 U/L (6-35); Albumin Level 3.6 g/dL (3.5-5.1); Alkaline Phosphatase 99 U/L (38-126); Anion Gap 3 mmol/L (8-16); Aspartate Amino Transferase 28 U/L (14-36); Bilirubin,Total 0.5 mg/dL (0.2-1.3); Blood Urea Nitrogen 29 mg/dL (7-17); Calcium 8.8 mg/dL (8.4-10.2); Carbon Dioxide 33 mmol/L (22-30); Chloride 98 mmol/L (98-107); Cholesterol 138 mg/dL (0-200); Estimated Glomerular Filt Rate 40; Glucose 131 mg/dL (65-110); HDL Direct 40 mg/dL; Potassium 3.6 mmol/L (3.4-5.0); Sodium 134 mmol/L (137-145); Triglycerides 124 mg/dL (<150)
[2022-12-12 10:32] LABS: LDL Cholesterol Direct 59 mg/dL
[2022-12-12 10:43] LABS: Hemoglobin A1C 6.5 % (<5.7)
[2022-12-12 10:47] LABS: MALB Creatinine Ratio < 6.0 mg/g (0-30); Microalbumin Urine Random < 6.0 mg/L (0-16.7)
[2022-12-12 10:49] LABS: Thyroid Stimulating Hormone 0.584 uIU/mL (0.465-4.680)
== END 2022-12-12 09:02 | disposition home or self-care (01) ==
PROVIDERS: PCP Family Medicine; Visit Provider Nurse Practitioner Family
DX: D69.6 Thrombocytopenia, unspecified (principal); I10 Essential (primary) hypertension; E11.65 Type 2 diabetes mellitus with hyperglycemia; E78.5 Hyperlipidemia, unspecified; I48.0 Paroxysmal atrial fibrillation
CPT/HCPCS: 36415; 80053; 80061; 82043; 83036; 84443; 85027

== ENCOUNTER 2022-12-15 13:09 | Outpatient (CLI) | payer MEDICARE, SELFPAY ==
--- NOTE | ~2022-12-15 | US_ITS ---
EXAMINATION: US pelvic complete w TV DATE: 12/15/2022 13:54 INDICATION: Postmenopausal bleeding. TECHNIQUE: Multiple transabdominal and transvaginal sonographic images of the pelvis were obtained. COMPARISON: CT abdomen and pelvis 04/27/2022 FINDINGS: TRANSABDOMINAL ULTRASOUND: The uterus measures 7.0 x 3.4 x 5.3 cm. There is trace free fluid in the pelvis. TRANSVAGINAL ULTRASOUND: The endometrial complex measures 9 mm in thickness. The right ovary is not visualized. The left ovary measures 2.7 x 2.1 x 1.0 cm. IMPRESSION: 1. Thickened endometrial complex. The differential diagnosis includes endometrial hyperplasia, polyp, and carcinoma. Biopsy is recommended. Reviewed, dictated and finalized at location E. IMPRESSION: 1. Thickened endometrial complex. The differential diagnosis includes endometri al hyperplasia, polyp, and carcinoma. Biopsy is recommended.
== END 2022-12-15 13:10 | disposition home or self-care (01) ==
LOC: ANHIMG 13:11
PROVIDERS: PCP Family Medicine; Visit Provider Obstetrics & Gynecology
DX: N95.0 Postmenopausal bleeding (principal)
CPT/HCPCS: 76830; 76856

== ENCOUNTER 2023-04-03 11:21 | Outpatient (CLI) | payer MEDICARE, SELFPAY ==
[2023-04-03 12:44] LABS: Hematocrit 37.7 % (37.0-47.0); Hemoglobin 11.7 g/dL (12.0-15.0)
[2023-04-03 12:53] LABS: Anion Gap 5 mmol/L (8-16); Blood Urea Nitrogen 22 mg/dL (7-17); Calcium 9.3 mg/dL (8.4-10.2); Carbon Dioxide 32 mmol/L (22-30); Chloride 100 mmol/L (98-107); Estimated Glomerular Filt Rate 44; Glucose 151 mg/dL (65-110); Potassium 4.2 mmol/L (3.4-5.0); Sodium 137 mmol/L (137-145)
== END 2023-04-03 11:22 | disposition home or self-care (01) ==
LOC: ANHSURGERY 11:29
PROVIDERS: Anesthesiology; PCP Nurse Practitioner Family; Visit Provider Obstetrics & Gynecology
DX: E11.9 Type 2 diabetes mellitus without complications (principal); D50.8 Other iron deficiency anemias; Z01.818 Encounter for other preprocedural examination
CPT/HCPCS: 36415; 80048; 85014; 85018

== ENCOUNTER 2023-04-07 00:57 | Day surgery (SDC) | payer MEDICARE, SELFPAY ==
--- NOTE | 2023-01-30 15:05 | PC.NURSE ---
Report to the Outpatient Waiting Room, entrance under the green pavilion located off [facility], at [id number] on date __02/10/23 . Planned Procedure Time: _829 . Time changes happen often and if your time is changed the preop area will call you the afternoon before. - You and your visitor will be asked to self-screen and do not enter if you have any COVID symptoms. - A mask is optional within the hospital at this time. Patients may have clear liquids (water, carbonated beverages, clear teas, apple juice) until 3 hours prior to surgery with a maximum of 20 ounces. - No food from midnight until time of surgery - Infants may have breast milk until 4 hours before surgery, formula 6 hours prior to surgery. - Children will be allowed to drink immediately following surgery. If applicable, please bring a bottle or sippy cup to assist with drinking. Juice, water, soda, and popsicles are readily available. For infants on formula, please bring formula the day of surgery. Pacifiers are allowed. Take the following medications with a SIP of water the morning of surgery: __NONE DO NOT STOP ANY OF YOUR OTHER PRESCRIPTION MEDICATIONS PRIOR TO SURGERY ?EXCEPT THE FOLLOWING Medications to discontinue per physician __ALL VITAMINS AND SUPPLEMENTS 3 DAYS PRE OP.LAST DOSE 02/06/23 Please no make-up, nail vietnamese, hairspray, perfume, deodorant, or body powder the day of surgery. No jewelry (including any body piercings) or valuables the day of surgery, leave them at home. Please take a shower or bath the night before, or the morning of, surgery with an antibacterial soap. Wear comfortable, loose fitting clothing. Children are encouraged to wear pajamas. - Jewelry must be removed prior to entering the operating room. Rings and piercings that are not removed may be cut off. - The hospital will not accept responsibility for valuables. - Please leave all valuables, including medications, at home the day of surgery. If you are going home after surgery, a licensed ambulance driver must drive you home. - NO public transportation without another adult if you receive anesthesia. - We recommend that an adult stay with you for 24 hours following discharge. - We also recommend that you do not drive, make important decision, drink alcoholic beverages, or take any drugs that were not prescribed by your health care provider for at least 24 hours after your discharge time. For Pediatric surgeries, we recommend two adults accompany the child home. Follow any additional instructions given to you from your surgeon. If you or anyone in your household have experienced Covid symptoms in the past week, please notify your surgeon or the nurse liaison at the phone number below for possible testing. Telephone instructions given to __PATIENT and asked if any additional questions and then verbalized understanding. Patient advised to call surgeon office or pre surgery nurse liaison [phone] if any additional questions.
[2023-01-30 15:10] VITALS: BMI 27.6
--- NOTE | 2023-03-31 09:41 | PC.NURSE ---
Report to the Outpatient Waiting Room, entrance under the green pavilion located off [facility], at time __0830 on date __04/07/23 . Planned Procedure Time: _1030 . Time changes happen often and if your time is changed the preop area will call you the afternoon before. - You and your visitor will be asked to self-screen and do not enter if you have any COVID symptoms. - A mask is optional within the hospital at this time. Patients may have clear liquids (water, carbonated beverages, clear teas, apple juice) until 3 hours prior to surgery with a maximum of 20 ounces. - No food from midnight until time of surgery - Infants may have breast milk until 4 hours before surgery, infant formula 6 hours prior to surgery. - Children will be allowed to drink immediately following surgery. If applicable, please bring a bottle or sippy cup to assist with drinking. Juice, water, soda, and popsicles are readily available. For infants on formula, please bring formula the day of surgery. Pacifiers are allowed. Take the following medications with a SIP of water the morning of surgery: ____NONE DO NOT STOP ANY OF YOUR OTHER PRESCRIPTION MEDICATIONS PRIOR TO SURGERY ?EXCEPT THE FOLLOWING Medications to discontinue per physician __ALL VITAMINS AND SUPPLEMENTS 3 DAYS PRE OP.LAST DOSE 04/03/23. PT STATES PER DR ELAM DON'T TAKE ASPIRIN MORNING OF SURGERY Please no make-up, nail slovenian, hairspray, perfume, deodorant, or body powder the day of surgery. No jewelry (including any body piercings) or valuables the day of surgery, leave them at home. Please take a shower or bath the night before, or the morning of, surgery with an antibacterial soap. Wear comfortable, loose fitting clothing. Children are encouraged to wear pajamas. - Jewelry must be removed prior to entering the operating room. Rings and piercings that are not removed may be cut off. - The hospital will not accept responsibility for valuables. - Please leave all valuables, including medications, at home the day of surgery. If you are going home after surgery, a licensed drivers license examiner must drive you home. - NO public transportation without another adult if you receive anesthesia. - We recommend that an adult stay with you for 24 hours following discharge. - We also recommend that you do not drive, make important decision, drink alcoholic beverages, or take any drugs that were not prescribed by your health care provider for at least 24 hours after your discharge time. For Pediatric surgeries, we recommend two adults accompany the child home. Follow any additional instructions given to you from your surgeon. If you or anyone in your household have experienced Covid symptoms in the past week, please notify your surgeon or the nurse liaison at the phone number below for possible testing. Telephone instructions given to ___PATIENT and asked if any additional questions and then verbalized understanding. Patient advised to call surgeon office or pre surgery nurse liaison [phone] if any additional questions.
[2023-03-31 10:55] VITALS: BMI 27.6
--- NOTE | 2023-04-06 16:47 | PM.IMHP ---
H&P: HPI History of Present Illness Date/Time: 04/06/23 16:48 Chief Complaint: Postmenopausal bleeding Narrative: She is here for Hysteroscopy D and C due to postmenopausal bleeding and thickened endometrial stripe of 9mm. She is on tamoxifen. Recommended endometrial assessment with D and C hysteroscopy. Review of Systems Review of Systems: All systems reviewed & are unremarkable except as noted in HPI and below Cardiovascular: Cardiovascular: Reports no additional cardiovascular complaints, Denies chest pain and Denies dyspnea Respiratory: Respiratory: Reports no additional respiratory complaints and Denies dyspnea Gastrointestinal: Gastrointestinal: Reports abdominal pain, Denies change in bowel habits, Denies diarrhea, Denies nausea and Denies vomiting Genitourinary: Genitourinary: Reports pelvic pain Musculoskeletal: Musculoskeletal: Reports back pain Integumentary/Breasts: Skin/Breast: Reports system reviewed and no additional complaints, except as docu Neurologic: Reports system reviewed and no additional complaints, except as documented [facility] Past Medical History Medical History Arthritis BPPV (benign paroxysmal positional vertigo) CAD (coronary artery disease) CHF (congestive heart failure) Cirrhosis New diagnosis March 2022 CVA (cerebral vascular accident) DDD (degenerative disc disease) Diastolic dysfunction Echocardiogram 11/2021: Borderline left ventricular hypertrophy, overall good systolic function with EF of 63%, small area of the basal inferior wall hypokinesis, borderline global longitudinal strain, diastolic dysfunction, moderate left atrial enlargement, mild pulmonary hypertension DM (diabetes mellitus) Dyslipidemia Gastric polyps GERD (gastroesophageal reflux disease) Hiatal hernia History of colon polyps History of GI bleed Hx of breast cancer Stage II breast cancer with 1 positive lymph node status post chemotherapy and radiation Hypertension Hypovitaminosis D Non-STEMI (non-ST elevated myocardial infarction) Obesity Paroxysmal atrial fibrillation Shingles Takotsubo cardiomyopathy Thrombocytopenia TIA (transient ischemic attack) Surgical History Surgical History History of cholecystectomy History of colonoscopy with polypectomy Most recent September 2020 History of dilation and curettage History of esophagogastroduodenoscopy (EGD) Most recent EGD 11/18/2021 demonstrated multiple gastric polyps several of which were removed. History of heart artery stent (~2018) LAD performed at [place] History of mastectomy (11/2011) Partial left breast History of nephrectomy, right History of removal of cyst from finger Hx of bilateral cataract extraction Hx of cardiac cath with stent placement Hx of tubal ligation Presence of Watchman left atrial appendage closure device S/P ablation of atrial fibrillation Multiple times managed by a gum puller at [place] S/P placement of cardiac pacemaker Family History Family History Sibling Family history of malignant neoplasm of ovary, Onset Age: 60 Mother Hypertension Heart disease Cerebrovascular accident Father Drowning, accidental Other Family history of malignant neoplasm Social History Social History Social History: The patient has 4 children. She is retired from [employer]. Lifelong nonsmoker. She does not use any alcohol marijuana or illicit drugs. She lives with her who is the durable power acid leveler for healthcare. The patient desires to be a full code. Smoking status: Never smoker Second hand tobacco smoke exposure: No Alcohol intake: never Substance use: never Substance use type: does not use Lack of Transportation: No Lack of Food: Never True Current Housing: I Have Housing
[2023-04-07 08:46] VITALS: BP 133/92; PULSE 111; RESP 18; TEMP 36.9; O2SAT 98
[2023-04-07] MEDS: LACTATED RINGERS 1,000 ML 30 ML IV CONT (09:05)
[2023-04-07] MEDS: ACETAMINOPHEN 500 MG TABLET 1000 MG PO (09:06)
[2023-04-07 09:09] LABS: Glucose Point of Care 140 mg/dl (65-105)
--- NOTE | 2023-04-07 10:05 | WPDHPUPDATE1 ---
History and Physical Update Update Date/Time: 04/07/23 10:05 History and Physical has been reviewed, including an updated exam of the patient. There are NO changes in the patient's condition. Risks, benefits, and alternatives have been discussed and questions answered. Patient agrees to proceed with procedure.
--- NOTE | 2023-04-07 10:09 | WPDANESEPPF ---
Anes - Initial Pre Proc Eval Procedure: Operation Date: 04/07/23 10:30 Proposed Procedures p Hysteroscopy Dilation and Curettage with Removal of Any Endometrial Lesion if Necessary - Nick Hernandes MD Date/Time: 04/07/23 10:09 Surgeon: Nick Hernandes MD Pre Op Diagnosis: post menopausal bleeding, thickened endometrial st Patient Data Age: 78 Gender: F Height: 1.57 m Weight: 70.4 kg Last Vital Signs Temp 98.5 F 04/07/23 08:46 Pulse 111 H 04/07/23 08:46 Resp 18 04/07/23 08:46 BP 133/92 H 04/07/23 08:46 Pulse Ox 98 04/07/23 08:46 O2 Del Method Room Air 04/07/23 08:46 Allergies Allergy/AdvReac Type Severity Reaction Status Date / Time No Known Allergies Allergy Verified 04/07/23 09:20 Home Medications Medication Instructions Recorded Confirmed Type atorvastatin 40 mg tablet 40 mg PO HS 04/30/19 04/07/23 History tamoxifen 20 mg tablet 20 mg PO HS 04/30/19 04/07/23 History ascorbic acid (vitamin C) 250 mg 1,000 mg PO DAILY 09/29/20 04/07/23 History tablet ferrous sulfate 325 mg (65 mg 325 mg PO BID 09/29/20 04/07/23 History iron) tablet (Iron (ferrous sulfate)) aspirin 325 mg tablet,delayed 325 mg PO DAILY #1 tablet 01/08/21 04/07/23 Rx release lactobacillus combination no.4 3 3,000 mmu cells PO DAILY 05/18/21 04/07/23 History billion cell capsule (Probiotic) multivitamin with minerals-folic 1 tablet PO DAILY 11/02/21 04/07/23 History acid 0.4 mg tablet omega 1-tnj-atm-fish oil 1,000 mg 1 cap PO DAILY 11/02/21 04/07/23 History (120 mg-180 mg) capsule (Fish Oil) calcium polycarbophil 625 mg 1,250 mg PO BID PRN Constipation 01/10/22 04/07/23 History tablet (FiberCon) meclizine 12.5 mg tablet 12.5 mg PO TID PRN dizziness #30 05/18/22 04/07/23 Rx tabs coenzyme Q10 200 mg/gram oral 200 mg PO DAILY 08/16/22 04/07/23 History powder (H2Q CoQ10) furosemide 20 mg tablet 40 mg PO DAILY 09/16/22 04/07/23 History metoprolol succinate 25 mg capsule 75 mg PO HS 12/14/22 04/07/23 History sprinkle, ext. release 24 hr pantoprazole 40 mg tablet,delayed 40 mg PO QAM #90 tabs 01/03/23 04/07/23 Rx release empagliflozin 10 mg tablet 10 mg PO DAILY 01/30/23 04/07/23 History (Jardiance) evening primrose oil 500 mg capsule 500 mg PO DAILY 01/30/23 04/07/23 History semaglutide 3 mg tablet (Rybelsus) 3 mg PO DAILY 01/30/23 04/07/23 History Laboratory Tests 04/07/23 09:03 POC Capillary Glucose 140 H mg/dl (65-105) Patient hx anesthesia problems: none Family hx anesthesia problems: none Results Review: All pre-operative results and documents have been reviewed as part of the pre-operative evaluation. [facility] Past Medical History Medical History Arthritis BPPV (benign paroxysmal positional vertigo) CAD (coronary artery disease) CHF (congestive heart failure) Cirrhosis New diagnosis March 2022 CVA (cerebral vascular accident) DDD (degenerative disc disease) Diastolic dysfunction Echocardiogram 11/2021: Borderline left ventricular hypertrophy, overall good systolic function with EF of 63%, small area of the basal inferior wall hypokinesis, borderline global longitudinal strain, diastolic dysfunction, moderate left atrial enlargement, mild pulmonary hypertension DM (diabetes mellitus) Dyslipidemia Gastric polyps GERD (gastroesophageal reflux disease) Hiatal hernia History of colon polyps History of GI bleed Hx of breast cancer Stage II breast cancer with 1 positive lymph node status post chemotherapy and radiation Hypertension Hypovitaminosis D Non-STEMI (non-ST elevated myocardial infarction) Obesity Paroxysmal atrial fibrillation Shingles Takotsubo cardiomyopathy Thrombocytopenia TIA (transient ischemic attack) Surgical History Surgical History History of cholecystectomy History of colonoscopy with polypectomy
[2023-04-07] MEDS: ceFAZolin 2 GM/D5W 50 ML 2 GM/50 ML BAG IVPB (10:11)
[2023-04-07] MEDS: LIDOCAINE HCL 1% LOCAL INJ 20 ML VIAL 10 ML INFILTRATE (10:24)
[2023-04-07 10:41] VITALS: BP 104/56; PULSE 113; RESP 12; O2SAT 91
[2023-04-07 10:52] LABS: Glucose Point of Care 135 mg/dl (65-105)
[2023-04-07 11:10] VITALS: BP 103/67; PULSE 119
--- NOTE | 2023-04-07 11:31 | P.OP_ITS ---
Procedure Note - Detailed Date of Procedure 04/07/23 Pre-op Diagnosis post menopausal bleeding, thickened endometrial st Post-op Diagnosis Same Procedure Performed Diagnostic hysteroscopy with dilation and curettage and removal of endometrial lesion with the Aveta instrument. Surgeon Nick Hernandes MD Anesthesia MAC and Local Indications Postmenopausal bleeding and thickened endometrial stripe in a patient on tamoxifen. Findings Uterus sound to 8 cm there was a small polypoid structure on the right side of the uterine cavity this was removed completely the rest of the cavity was atrophic there was minimal tissue obtained with the curettage. Description of Procedure After informed consent was obtained patient was taken to the operating room and adequate IV sedation was administered she was placed in low lithotomy position and prepped and draped in sterile fashion attention was turned to the vagina speculum was inserted single-tooth tenaculum placed on anterior lip of the cervix 8 cc 1% lidocaine was injected at the cervical vaginal interface at the 2 5 8 10 position. The uterus was sound to 8 cm. The hysteroscope was inserted and using hydrodilation the hysteroscope was inserted to the cavity. The findings per above. The biopsy instrument was then used to remove the lesion in the cavity. Which was removed completely. The hysteroscope was removed and a curettage was performed with minimal tissue. The single-tooth tenaculum was removed hemostasis noted at the cervix. Fluid deficit 140 cc. The patient tolerated procedure well sponge count was correct patient taken to recovery in s table condition. Estimated Blood Loss 5 Drains No Packing No Complications No immediate complications Condition Stable Disposition Same day [facility] Billing Surgery - Charge Forward: Surgery Billing
[2023-04-07 11:40] VITALS: BP 97/57; PULSE 104
== END 2023-04-07 11:51 | disposition home or self-care (01) ==
PROVIDERS: PCP Nurse Practitioner Family; Visit Provider Obstetrics & Gynecology
PROC: 0U5B8ZZ Destruction of Endometrium, Via Natural or Artificial Opening Endoscopic (ICD-10-PCS; CPT 58563; principal; 2023-04-07 10:30)
DX: N95.0 Postmenopausal bleeding (principal); N84.0 Polyp of corpus uteri; I11.0 Hypertensive heart disease with heart failure; I50.30 Unspecified diastolic (congestive) heart failure; I25.10 Atherosclerotic heart disease of native coronary artery without angina pectoris; E78.5 Hyperlipidemia, unspecified; E11.9 Type 2 diabetes mellitus without complications; K21.9 Gastro-esophageal reflux disease without esophagitis; K74.60 Unspecified cirrhosis of liver; I25.2 Old myocardial infarction; E55.9 Vitamin D deficiency, unspecified; I48.0 Paroxysmal atrial fibrillation; Z79.810 Long term (current) use of selective estrogen receptor modulators (SERMs); Z79.84 Long term (current) use of oral hypoglycemic drugs; Z79.82 Long term (current) use of aspirin; Z86.73 Personal history of transient ischemic attack (TIA), and cerebral infarction without residual deficits; Z85.3 Personal history of malignant neoplasm of breast; Z85.89 Personal history of malignant neoplasm of other organs and systems; Z92.21 Personal history of antineoplastic chemotherapy; Z92.3 Personal history of irradiation; Z95.5 Presence of coronary angioplasty implant and graft; Z95.0 Presence of cardiac pacemaker
CPT/HCPCS: 58558; 82948; 88305; A9270; J0690; J2704; J3010; J7120

== ENCOUNTER 2023-04-22 15:59 | Emergency (ER) | payer MEDICARE, SELFPAY ==
--- NOTE | 2023-04-22 16:12 | ED.GENADULT ---
HPI - General Adult General Chief complaint: Urogenital-Female Stated complaint: urinary issue Time Seen by Provider: 04/22/23 16:12 Source: patient Mode of arrival: ambulatory Limitations: no limitations History of Present Illness HPI narrative: 38-year-old female patient presents to the [facility] with complaints of urinary symptoms and a rash to the lower right lower leg. Patient denies fevers body aches or chills. Denies abdominal pain or lower back pain. Patient states symptoms just started this morning. Patient states she only has 1 kidney and is consistently concerned about urinary symptoms. Patient states she has had burning with urination, urgency and frequency. Patient also reports a a isolated rash to the right lower leg this started about 2 days ago. Patient states it does itch and came up all the sudden. Denies any trauma to the leg that she is aware of. Patient states she has put Neosporin on it Related Data Home Medications Medication Instructions Recorded Confirmed atorvastatin 40 mg tablet 40 mg PO HS 04/30/19 04/07/23 ascorbic acid (vitamin C) 250 mg 1,000 mg PO DAILY 09/29/20 04/07/23 tablet ferrous sulfate 325 mg (65 mg 325 mg PO BID 09/29/20 04/07/23 iron) tablet (Iron (ferrous sulfate)) lactobacillus combination no.4 3 3,000 mmu cells PO DAILY 05/18/21 04/07/23 billion cell capsule (Probiotic) multivitamin with minerals-folic 1 tablet PO DAILY 11/02/21 04/07/23 acid 0.4 mg tablet omega 3-uzz-dmo-fish oil 1,000 mg 1 cap PO DAILY 11/02/21 04/07/23 (120 mg-180 mg) capsule (Fish Oil) calcium polycarbophil 625 mg 1,250 mg PO BID PRN Constipation 01/10/22 04/07/23 tablet (FiberCon) coenzyme Q10 200 mg/gram oral 200 mg PO DAILY 08/16/22 04/07/23 powder (H2Q CoQ10) furosemide 20 mg tablet 40 mg PO DAILY 09/16/22 04/07/23 metoprolol succinate 25 mg capsule 75 mg PO HS 12/14/22 04/07/23 sprinkle, ext. release 24 hr empagliflozin 10 mg tablet 10 mg PO DAILY 01/30/23 04/07/23 (Jardiance) semaglutide 3 mg tablet (Rybelsus) 3 mg PO DAILY 01/30/23 04/07/23 Allergies Allergy/AdvReac Type Severity Reaction Status Date / Time No Known Allergies Allergy Verified 04/22/23 16:10 Review of Systems Review of Systems: CONSTITUTIONAL: Denies fever, chills, or sweats. EYES: Denies visual changes, redness, or discharge. ENT: Denies rhinorrhea, congestion, sore throat, or otalgia. CARDIOVASCULAR: Denies chest pain, palpitations, or edema. RESPIRATORY: Denies cough or dyspnea. GASTROINTESTINAL: Denies abdominal pain, nausea, vomiting, or diarrhea. GENITOURINARY: Positive dysuria with hematuria starting today SKIN: Positive rash to right lower leg that started 2 days ago MUSCULOSKELETAL: Denies back pain, joint pain, or myalgia. NEUROLOGIC: Denies headache, numbness, or weakness. PSYCHIATRIC: Denies anxiety or depression. [facility] Past Medical History Medical History Arthritis BPPV (benign paroxysmal positional vertigo) CAD (coronary artery disease) CHF (congestive heart failure) Cirrhosis New diagnosis March 2022 CVA (cerebral vascular accident) DDD (degenerative disc disease) Diastolic dysfunction Echocardiogram 11/2021: Borderline left ventricular hypertrophy, overall good systolic function with EF of 63%, small area of the basal inferior wall hypokinesis, borderline global longitudinal strain, diastolic dysfunction, moderate left atrial enlargement, mild pulmonary hypertension DM (diabetes mellitus) Dyslipidemia Gastric polyps GERD (gastroesophageal reflux disease) Hiatal hernia History of colon polyps History of GI bleed Hx of breast cancer Stage II breast cancer with 1 positive lymph node status post chemotherapy and radiation Hypertension Hypovitaminosis D Non-STEMI (non-ST elevated myocardial infarction) Obesity Paroxysmal atrial fibrillation Shingles Takotsubo cardiomyopathy Thrombocytopenia TIA (transient isch
--- NOTE | 2023-04-22 16:16 | PC.NURSE ---
in br to obtain ua spec.
[2023-04-22 16:25] VITALS: BP 115/90; PULSE 115; RESP 16; TEMP 36.7; O2SAT 98
--- NOTE | 2023-04-22 16:45 | PC.NURSE ---
1626 also concerned with 3 small reddened spots to right lower ant. leg. is itchy. largest about 1cm in diameter, 2 smaller, all in close proximenty.
== END 2023-04-22 17:01 | disposition home or self-care (01) ==
PROVIDERS: Emergency Provider Nurse Practitioner Family; PCP Nurse Practitioner Family
DX: N39.0 Urinary tract infection, site not specified (principal); R21 Rash and other nonspecific skin eruption; M19.90 Unspecified osteoarthritis, unspecified site; I25.10 Atherosclerotic heart disease of native coronary artery without angina pectoris; I11.0 Hypertensive heart disease with heart failure; I50.9 Heart failure, unspecified; K74.60 Unspecified cirrhosis of liver; Z86.73 Personal history of transient ischemic attack (TIA), and cerebral infarction without residual deficits; E11.9 Type 2 diabetes mellitus without complications; E78.5 Hyperlipidemia, unspecified; K21.9 Gastro-esophageal reflux disease without esophagitis; E66.9 Obesity, unspecified; Z68.29 Body mass index [BMI] 29.0-29.9, adult; I25.2 Old myocardial infarction; I48.0 Paroxysmal atrial fibrillation; Z95.5 Presence of coronary angioplasty implant and graft; Z85.3 Personal history of malignant neoplasm of breast; Z90.12 Acquired absence of left breast and nipple; Z90.5 Acquired absence of kidney; Z98.42 Cataract extraction status, left eye; Z98.41 Cataract extraction status, right eye; Z95.0 Presence of cardiac pacemaker
CPT/HCPCS: 81003; 87077; 87086; 87186; 99213; G0463

== ENCOUNTER 2023-06-14 11:10 | Outpatient (CLI) | payer MEDICARE, SELFPAY ==
[2023-06-14 11:49] LABS: Basophils Percent Auto 0.1 % (0.2-1.2); Eosinophils Percent Auto 0.1 % (0-4.4); Hematocrit 41.8 % (37.0-47.0); Hemoglobin 12.7 g/dL (12.0-15.0); Immature Granulocyte Absolute 0.09 K/mm3 (0.00-0.031); Immature Granulocyte Percent A 0.9 % (0-0.5); Immature Platelet Fraction Pct 11.7 % (0.9-11.2); Lymphocytes Absolute Auto 1.84 K/mm3 (0.9-3.2); Lymphocytes Percent Auto 17.8 % (18.3-44.2); Mean Corpuscular HGB Conc 30.4 g/dl (32-36); Mean Corpuscular Hemoglobin 27.1 pg (26-34); Mean Corpuscular Volume 89.3 fl (80-100); Mean Platelet Volume 12.9 fl (7.4-10.4); Monocytes Absolute Auto 0.8 K/mm3 (0.1-0.6); Monocytes Percent Auto 7.7 % (2.6-8.5); Neutrophils Absolute Auto 7.6 K/mm3 (1.3-6.7); Neutrophils Percent Auto 73.4 % (45.5-73.1); Platelet Count Result 98 k/mm3 (150-375); Red Blood Count 4.68 M/mm3 (4.2-5.4); Red Cell Distribution Width 12.6 % (11.5-14.5); White Blood Count 10.3 K/mm3 (4.5-10.0)
[2023-06-14 11:57] LABS: Alanine Aminotransferase 36 U/L (6-35); Albumin Level 3.6 g/dL (3.5-5.1); Alkaline Phosphatase 84 U/L (38-126); Anion Gap 8 mmol/L (8-16); Aspartate Amino Transferase 44 U/L (14-36); Bilirubin,Total 0.7 mg/dL (0.2-1.3); Blood Urea Nitrogen 24 mg/dL (7-17); Calcium 8.5 mg/dL (8.4-10.2); Carbon Dioxide 32 mmol/L (22-30); Chloride 102 mmol/L (98-107); Cholesterol 112 mg/dL (0-200); Estimated Glomerular Filt Rate 48; Glucose 132 mg/dL (65-110); HDL Direct 35 mg/dL; Potassium 3.4 mmol/L (3.4-5.0); Sodium 142 mmol/L (137-145); Triglycerides 147 mg/dL (<150)
[2023-06-14 12:00] LABS: Iron 65 ug/dL (37-170)
[2023-06-14 12:08] LABS: LDL Cholesterol Direct 58 mg/dL
[2023-06-14 12:09] LABS: Creatinine Urine 131.4 mg/dL
[2023-06-14 12:10] LABS: Percent Iron Saturation 25 % (20-50)
[2023-06-14 12:14] LABS: MALB Creatinine Ratio 10.9 mg/g (0-30); Microalbumin Urine Random 14.3 mg/L (0-16.7)
[2023-06-17 13:09] LABS: Vitamin D 1,25 (OH)2 Total 49 pg/mL (18-72); Vitamin D2 1,25 (OH)2 <8 pg/mL; Vitamin D3 1,25 (OH)2 49 pg/mL
== END 2023-06-14 11:11 | disposition home or self-care (01) ==
LOC: ANHLAB 11:11
PROVIDERS: PCP Nurse Practitioner Family; Visit Provider Nurse Practitioner Family
DX: E11.65 Type 2 diabetes mellitus with hyperglycemia (principal); E55.9 Vitamin D deficiency, unspecified; R53.83 Other fatigue; E78.5 Hyperlipidemia, unspecified; I48.0 Paroxysmal atrial fibrillation; I50.9 Heart failure, unspecified; D50.8 Other iron deficiency anemias; I11.0 Hypertensive heart disease with heart failure
CPT/HCPCS: 36415; 80053; 80061; 82043; 82652; 83540; 83550; 84443; 85025; 85055

== ENCOUNTER 2023-08-01 10:39 | Outpatient (CLI) | payer MEDICARE, SELFPAY ==
--- NOTE | ~2023-08-01 | XR_ITS ---
EXAM: XR hand BI arthritis min 3V DATE: 08/01/2023 11:10 HISTORY: M25.50 - both thumbs sore/stiff >2mo, right hurts worse . COMPARISON: None available. FINDINGS: Normal mineralization. No fracture or dislocation. No lytic or blastic lesion. Mild arthri tic changes typical of osteoarthritis present in the bilateral DIP joints, multiple bilateral PIP ed nts, thumb MCP and interphalangeal joints, the right triscaphe joint, and the bilateral trapeziometac arpal joints. No erosion or periosteal change. Soft tissues within normal limits. 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 Reviewed, dictated and finalized at location K. [facility]
[2023-08-01 12:12] LABS: Free T4 Free Thyroxine 1.32 ng/mL (0.78-2.19)
[2023-08-01 12:18] LABS: Thyroid Stimulating Hormone 0.457 uIU/mL (0.465-4.680)
[2023-08-01 12:34] LABS: Hemoglobin A1C 6.5 % (<5.7)
== END 2023-08-01 10:40 | disposition home or self-care (01) ==
LOC: ANHIMG 10:48
PROVIDERS: PCP Nurse Practitioner Family; Visit Provider Nurse Practitioner Family
DX: M19.042 Primary osteoarthritis, left hand (principal); M19.041 Primary osteoarthritis, right hand; M19.032 Primary osteoarthritis, left wrist; M19.031 Primary osteoarthritis, right wrist; I10 Essential (primary) hypertension; E11.65 Type 2 diabetes mellitus with hyperglycemia; R79.89 Other specified abnormal findings of blood chemistry
CPT/HCPCS: 36415; 73130; 83036; 84439; 84443

== ENCOUNTER 2023-11-19 20:38 | Observation (INO) | payer MEDICARE, SELFPAY ==
[2023-11-19] VITALS (9 sets, daily range): BP systolic 99–143; BP diastolic 62–88; PULSE 84–124; RESP 12–20; TEMP 36.7; O2SAT 93–98
--- NOTE | ~2023-11-19 | CT_ITS ---
CTA chest PE protocol Ordering provider: Bryce Pierce MD History: 78 years Female with . dyspnea . Comparison: 09/13/2022 Technique: CT angiogram chest was performed following timed intravenous injection of contrast. Thin s lice axial images and reformatted coronal images were obtained. Three dimensional reformatted images of the chest were also obtained using a [employer] workstation. Radiation reduction technique utilized. D LP is 218.57 mGy. Findings: PULMONARY ARTERIES: No pulmonary embolus. VISUALIZED THORACIC INLET: Left thyroid nodule measuring 2 cm. Ultrasound confirmation is advised. MEDIASTINUM: Aorta/coronary arteries: Mild atheromatous disease. Heart/other: The heart is not enlarged. Lymph nodes: No mediastinal or hilar adenopathy. LUNGS: No pulmonary nodules or masses. No infiltrates or effusions. No pneumothorax. Dependent atelectatic c hanges. VISUALIZED UPPER ABDOMEN: Nonvisualization of the right kidney. Clinical correlation advised. Thicken ed wall of the distal esophagus which may indicate reflux esophagitis. Otherwise, the visualized uppe r abdomen is normal. MUSCULOSKELETAL: Soft tissues: The superficial soft tissues are normal. Bones: Age appropriate degenerative changes of the spine. IMPRESSION: 1. No pulmonary embolism. 2. No acute cardiopulmonary pathology. Reviewed, dictated and finalized at location A.
--- NOTE | ~2023-11-19 | XR_ITS ---
XR chest 1V portable Ordering provider: Bryce Pierce MD History: 78 years Female with . Chest pain, SOB . Comparison: September 12 2022 FINDINGS: MEDIASTINUM: The cardiac silhouette is slightly enlarged. Right bipolar pacemaker. LUNGS: No infiltrates, effusions or pneumothorax. Prominent markings in the lower lobes. OTHER: No free air under the diaphragm. Left breast calcifications. IMPRESSION: No acute cardiopulmonary pathology. Reviewed, dictated and finalized at location A.
--- NOTE | 2023-11-19 20:41 | ECG_ITS ---
Test Date: 2023-11-19 20:46:26 Measurements Intervals [place] Rate: 107 P: 0 ME: 0 QRS: -39 QRSD: 96 T: 12 QT: 343 QTc: 459 Interpretive Statements ATRIAL FIBRILLATION WITH RAPID VENTRICULAR RESPONSE INDETERMINATE AXIS CONSIDER PREVIOUS INFERIOR INFARCTION NONSPECIFIC T-WAVE ABNORMALITY ABNORMAL ECG No previous ECG available for comparison Electronically Signed On 11-20-2023 15:09:21 CDT by Julian Mallory M.D.
--- NOTE | 2023-11-19 20:50 | ED.GENADULT ---
HPI - General Adult General Chief complaint: Chest Pain Stated complaint: chest pain sob Time Seen by Provider: 11/19/23 20:41 History of Present Illness HPI narrative: This is a 78-year-old female history AFib on aspirin, HFrEF and diabetes presenting for shortness of breath. Patient says she has been having chest tightness for the last 3 days. Her difficulty breathing was precipitated by painting one of the bedrooms in her house. She describes the tightness as radiating across her chest, mild in intensity and getting worse. She says she has had pain like this many times in the past when she has had AFib. No exacerbating alleviating factors. Patient denies fevers chills chest pain productive cough or lower extremity edema. She has been taking her medications as instructed. Patient has AFib w/ ASA w/o AC due to her multiple GI bleeds. Related Data Home Medications Medication Instructions Recorded Confirmed atorvastatin 40 mg tablet 40 mg PO HS 04/30/19 10/31/23 ascorbic acid (vitamin C) 250 mg 1,000 mg PO DAILY 09/29/20 10/31/23 tablet ferrous sulfate 325 mg (65 mg 325 mg PO BID 09/29/20 10/31/23 iron) tablet (Iron (ferrous sulfate)) lactobacillus combination no.4 3 3,000 mmu cells PO DAILY 05/18/21 10/31/23 billion cell capsule (Probiotic) multivitamin with minerals-folic 1 tablet PO DAILY 11/02/21 10/31/23 acid 0.4 mg tablet omega 4-aro-jzk-fish oil 1,000 mg 1 cap PO DAILY 11/02/21 10/31/23 (120 mg-180 mg) capsule (Fish Oil) coenzyme Q10 200 mg/gram oral 200 mg PO DAILY 08/16/22 10/31/23 powder (H2Q CoQ10) furosemide 20 mg tablet 40 mg PO DAILY 09/16/22 10/31/23 metoprolol succinate 25 mg capsule 75 mg PO HS 12/14/22 10/31/23 sprinkle, ext. release 24 hr empagliflozin 10 mg tablet 10 mg PO DAILY 01/30/23 10/31/23 (Jardiance) calcium polycarbophil 625 mg 1,250 mg PO BID PRN Constipation 06/20/23 10/31/23 tablet (FiberCon) semaglutide 3 mg tablet (Rybelsus) 7 mg PO DAILY 06/20/23 10/31/23 Allergies Allergy/AdvReac Type Severity Reaction Status Date / Time amoxicillin Allergy Mild Diarrhea Verified 10/31/23 08:10 [facility] Past Medical History Medical History Arthritis BPPV (benign paroxysmal positional vertigo) CAD (coronary artery disease) CHF (congestive heart failure) Cirrhosis New diagnosis March 2022 CVA (cerebral vascular accident) DDD (degenerative disc disease) Diastolic dysfunction Echocardiogram 11/2021: Borderline left ventricular hypertrophy, overall good systolic function with EF of 63%, small area of the basal inferior wall hypokinesis, borderline global longitudinal strain, diastolic dysfunction, moderate left atrial enlargement, mild pulmonary hypertension DM (diabetes mellitus) Dyslipidemia Gastric polyps GERD (gastroesophageal reflux disease) Hiatal hernia History of colon polyps History of GI bleed Hx of breast cancer Stage II breast cancer with 1 positive lymph node status post chemotherapy and radiation Hypertension Hypovitaminosis D Non-STEMI (non-ST elevated myocardial infarction) Obesity Paroxysmal atrial fibrillation Shingles Takotsubo cardiomyopathy Thrombocytopenia TIA (transient ischemic attack) Surgical History Surgical History History of cholecystectomy History of colonoscopy with polypectomy Most recent September 2020 History of dilation and curettage History of esophagogastroduodenoscopy (EGD) Most recent EGD 11/18/2021 demonstrated multiple gastric polyps several of which were removed. History of heart artery stent (~2018) LAD performed at [place] History of [facility]. Benign path. Dr Hernandes (PMB) History of mastectomy (11/2011) Partial left breast History of nephrectomy, right History of removal of cyst from finger Hx of bilateral cataract extraction Hx of cardiac cath
[2023-11-19] MEDS: IPRATROPIUM 0.5 MG/ALBUTEROL SULFATE 2.5 MG AMPUL.NEB 3 ML 6 ML INHALATION (21:02)
[2023-11-19 21:08] LABS: Basophils Absolute Auto 0.1 K/mm3 (0.0-0.1); Basophils Percent Auto 0.4 % (0.2-1.2); Eosinophils Absolute Auto 0.1 K/mm3 (0-0.3); Eosinophils Percent Auto 0.5 % (0-4.4); Hematocrit 37.4 % (37.0-47.0); Hemoglobin 11.9 g/dL (12.0-15.0); Immature Granulocyte Absolute 0.05 K/mm3 (0.00-0.031); Immature Granulocyte Percent A 0.4 % (0-0.5); Lymphocytes Absolute Auto 1.66 K/mm3 (0.9-3.2); Lymphocytes Percent Auto 13.1 % (18.3-44.2); Mean Corpuscular HGB Conc 31.8 g/dl (32-36); Monocytes Absolute Auto 0.9 K/mm3 (0.1-0.6); Monocytes Percent Auto 7.2 % (2.6-8.5); Neutrophils Percent Auto 78.4 % (45.5-73.1); Platelet Count Result 120 k/mm3 (150-375); Red Blood Count 4.25 M/mm3 (4.2-5.4); Red Cell Distribution Width 12.8 % (11.5-14.5); White Blood Count 12.7 K/mm3 (4.5-10.0)
[2023-11-19] MEDS: ASPIRIN 81 MG CHEWABLE TABLET 324 MG PO (21:09)
[2023-11-19] MEDS: dexAMETHasone SOD PHOS INJ 10 MG/ML 1 ML VIAL IV PUSH (21:09)
[2023-11-19 21:18] LABS: INR 1.2; Prothrombin Time 15.5 Seconds (11.1-14.7)
[2023-11-19 21:19] LABS: Partial Thromboplastin Time 35.8 Seconds (22.3-36.8)
[2023-11-19 21:22] LABS: Alveolar/Arterial O2 Gradient < 0.0 mmHg; HCO3 ABG 25.3 mEq/l (22.0-26.0); Oxygen Saturation ABG 99.8 % (95.0-100.0); Oxyhemoglobin 99.2 % THb (90.0-100.0); PCO2 ABG 34.8 mmHg (35.0-45.0); PO2 ABG 320.9 mmHg (80.0-100.0); PO2 FiO2 Ratio Arterial Blood > 0.00 %; Total Hemoglobin 12.3 g/dL (12.0-18.0); pH ABG 7.479 (7.350-7.450)
[2023-11-19 21:22] LABS: D Dimer 1.06 ug/mL (<0.48)
[2023-11-19 21:24] LABS: Device OTHER DEVICE; Fractional Inspired Oxygen 44 %; Modified Allen's Test Pass; Site Drawn RIGHT BRACHIAL
[2023-11-19 21:31] LABS: Alanine Aminotransferase 17 U/L (6-35); Albumin Level 4.2 g/dL (3.5-5.1); Alkaline Phosphatase 170 U/L (38-126); Anion Gap 6 mmol/L (4-12); Aspartate Amino Transferase 36 U/L (14-36); Bilirubin,Total 0.9 mg/dL (0.2-1.3); Blood Urea Nitrogen 31 mg/dL (7-17); Carbon Dioxide 27 mmol/L (22-30); Chloride 104 mmol/L (98-107); Estimated CRCL calculation 26 ml/min; Estimated Glomerular Filt Rate 34; Glucose 168 mg/dL (65-110); Lipase 110 U/L (23-300); NT Pro B Type Natriuretic Pept 3100 pg/mL (19.9-100); Potassium 4.2 mmol/L (3.4-5.0); Sodium 137 mmol/L (137-145); Troponin I < 0.012 ng/mL (0.000-0.034)
[2023-11-19 21:51] LABS: Influenza A QL RT-PCR Negative (Negative); Influenza B QL RT-PCR Negative (Negative); RSV RNA, RT-PCR Negative (Negative); SARS-CoV-2 RNA PCR Negative (Negative)
[2023-11-19] MEDS: METOPROLOL SUCCINATE EXT REL 25 MG, METOPROLOL SUCCINATE EXT REL 50 MG 75 MG PO (23:02)
[2023-11-19] MEDS: dilTIAZem HCl INJ 25 MG/5 ML VIAL 10 MG IV PUSH (23:46)
[2023-11-20] VITALS (18 sets, daily range): BP systolic 90–142; BP diastolic 46–89; PULSE 85–134; RESP 16–20; TEMP 36.1–36.8; O2SAT 92–97; BMI 28.3
--- NOTE | 2023-11-20 00:36 | PC.NURSE ---
pt was able to ambulate with a steady unassisted gait. pt oxygen saturation 97% while ambulating. pt denies chest pains while ambulating.
[2023-11-20] MEDS: dilTIAZem HCl INJ 25 MG/5 ML VIAL 10 MG IV PUSH (00:43)
--- NOTE | 2023-11-20 01:06 | PM.IMHP ---
H&P: HPI History of Present Illness Date/Time: 11/20/23 01:06 Chief Complaint: sob Narrative: This is a 78-year-old female with past medical history significant for atrial fibrillation, status post pacemaker placement, coronary artery disease, congestive heart failure, degenerative joint disease, diabetes mellitus. patient presents to the emergency room due to episode of palpitations, chest pain, explains that feels heavy in her chest, patient denies any nausea, vomiting, epigastric pain, syncope or near-syncope. In emergency room she was found to have a heart rate of 130, patient was started on diltiazem drip. Patient has been admitted for further evaluation management and treatment. XR chest 1V portable Ordering provider: Bryce Pierce MD History: 78 years Female with . Chest pain, SOB . Comparison: September 12 2022 FINDINGS: MEDIASTINUM: The cardiac silhouette is slightly enlarged. Right bipolar pacemaker. LUNGS: No infiltrates, effusions or pneumothorax. Prominent markings in the lower lobes. OTHER: No free air under the diaphragm. Left breast calcifications. IMPRESSION: No acute cardiopulmonary pathology. CTA chest PE protocol Ordering provider: Bryce Pierce MD History: 78 years Female with . dyspnea . Comparison: 09/13/2022 Technique: CT angiogram chest was performed following timed intravenous injection of contrast. Thin slice axial images and reformatted coronal images were obtained. Three dimensional reformatted images of the chest were also obtained using a [employer] workstation. Radiation reduction technique utilized. DLP is 218.57 mGy. Findings: PULMONARY ARTERIES: No pulmonary embolus. VISUALIZED THORACIC INLET: Left thyroid nodule measuring 2 cm. Ultrasound confirmation is advised. MEDIASTINUM: Aorta/coronary arteries: Mild atheromatous disease. Heart/other: The heart is not enlarged. Lymph nodes: No mediastinal or hilar adenopathy. LUNGS: No pulmonary nodules or masses. No infiltrates or effusions. No pneumothorax. Dependent atelectatic changes. VISUALIZED UPPER ABDOMEN: Nonvisualization of the right kidney. Clinical correlation advised. Thickened wall of the distal esophagus which may indicate reflux esophagitis. Otherwise, the visualized upper abdomen is normal. MUSCULOSKELETAL: Soft tissues: The superficial soft tissues are normal. Bones: Age appropriate degenerative changes of the spine. IMPRESSION: 1. No pulmonary embolism. 2. No acute cardiopulmonary pathology. Review of Systems Review of Systems: chest heaviness, sob, palpitations PMFSH Past Medical History Medical History Arthritis BPPV (benign paroxysmal positional vertigo) CAD (coronary artery disease) CHF (congestive heart failure) Cirrhosis New diagnosis March 2022 CVA (cerebral vascular accident) DDD (degenerative disc disease) Diastolic dysfunction Echocardiogram 11/2021: Borderline left ventricular hypertrophy, overall good systolic function with EF of 63%, small area of the basal inferior wall hypokinesis, borderline global longitudinal strain, diastolic dysfunction, moderate left atrial enlargement, mild pulmonary hypertension DM (diabetes mellitus) Dyslipidemia Gastric polyps GERD (gastroesophageal reflux disease) Hiatal hernia History of colon polyps History of GI bleed Hx of breast cancer Stage II breast cancer with 1 positive lymph node status post chemotherapy and radiation Hypertension Hypovitaminosis D Non-STEMI (non-ST elevated myocardial infarction) Obesity Paroxysmal atrial fibrillation Shingles Takotsubo cardiomyopathy Thrombocytopenia TIA (transient ischemic attack) Surgical History Surgical History History of cholecystectomy History of colonoscopy with polypectomy Most recent September 2020 History of dilation and curettage History of esophagogastro
[2023-11-20] MEDS: dilTIAZem 100 MG/100 ML 100 MG/100 ML BAG IV CONT (01:17)
--- NOTE | 2023-11-20 01:55 | ADMGEN ---
This patient, Jackie Waddell, was admitted to IMU Room 204-01. Patient/family oriented to hospital policies and general routines including ID bracelet, bed and alarms, visiting hours, pain management, procedures, bathroom and other care routines, personal items, smoking policy, room service/diet, and visiting hours. Information on how to activate the Rapid Response Team has been discussed. Patient/Family are encouraged to report perceived risks to care and to ask questions if they do not understand what they are told or what they should do.
[2023-11-20 02:35] LABS: Troponin I < 0.012 ng/mL (0.000-0.034)
[2023-11-20 05:02] LABS: Troponin I < 0.012 ng/mL (0.000-0.034)
--- NOTE | 2023-11-20 08:59 | PM.DS ---
DS: Admitting Diagnosis Discharge Date November 20, 2023 Admitting Diagnosis AFib with RVR/chest pain/chemical pneumonitis DS: Discharge Diagnosis Discharge Diagnosis (1) Pneumonitis: Code(s): J98.4 - Other disorders of lung Status: Acute (2) A-fib: Code(s): I48.91 - Unspecified atrial fibrillation Status: Acute (3) Acute dyspnea: Code(s): R06.00 - Dyspnea, unspecified Status: Acute DS: Summary Hospital Course Hospital Course: Ms. Waddell this is a pleasant 78-year-old female with a H heart failure heart failure reduced ejection fraction, history of GI bleed, AFib status post ablation status post Watchman device currently on aspirin 325 mg p.o. q.day, among other comorbidities presents with chest pain and chest tightness for 3 days which was precipitated by eating 1 of the bedrooms and her house. Troponin unremarkable x3 and EKG without acute ischemia demonstrating AFib with RVR. In the ER she was in RVR to 130s. She was given IV diltiazem 10 mg IV x2 along with DuoNeb treatment and 10 mg of dexamethasone. Admitted on 11/19/2023 for further evaluation. The next day on 11/19 patient is asymptomatic. Feels ready to go home. She has no shortness of breath no chest pain. Her heart rate remains in the 80s to 90s. Patient stable for discharge to home. She lives at home with her . 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 Agreed we will increase her metoprolol succinate from 75 mg p.o. to 100 mg p.o. q.day. She is advised to check heart rate and blood pressure keep a log and report abnormalities to her PCP/entry level automotive technician. Adverse effects, risk and benefits of medication discussed and she is understanding agreed with the plan above. All questions concerns answered to satisfaction. Patient was full code. Follow-up CBC with differential in 2 days leukocytosis which is already improved. And chronic thrombocytopenia Patient does have heart failure reduced ejection fraction. She is on a beta-allan, furosemide, Jardiance. Able to start on ARNI due to borderline low blood pressure. Time Spent with Patient Time attestation: Total time spent providing and/or coordinating discharge services: Exam Const: General: comfortable and no acute distress Eyes: Pupils: Equal, round and reactive pupils present Neck: Neck: supple Resp: Effort & Inspection: normal respiratory effort Auscultation: clear to auscultation bilaterally Cardio: Rate: regular rate Rhythm: regular rhythm Heart sounds: no gallops, no murmurs and no rubs GI: Inspection: non-distended GI Palp: Yes Soft to palpation, No Tenderness to palpation present (GI) and No Guarding due to palpation present (GI) Extrem: General: no edema DS: Data Data Completed and Pending Labs on day of discharge: Labs from last 24 hours 11/20/23 11/20/23 11/19/23 04:23 02:06 21:00 WBC 12.7 H RBC 4.25 Hgb 11.9 L Hct 37.4 MCV 88.0 MCH 28.0 MCHC 31.8 L RDW 12.8 Plt Count 120 L MPV 13.0 H Immature Gran % (Auto) 0.4 Neut % (Auto) 78.4 H Lymph % (Auto) 13.1 L [place] % (Auto) 7.2 Eos % (Auto) 0.5 Baso % (Auto) 0.4 Lymph # (Auto) 1.66 [place] # (Auto) 0.9 H Eos # (Auto) 0.1 Baso # (Auto) 0.1 Abs Immat Gran (auto) 0.05 H Absolute Neuts (auto) 10.0 H Absolute Nucleated RBC 0.000 Nucleated RBC % 0.0 PT 15.5 H INR 1.2 APTT 35.8 D-Dimer 1.06 H Puncture Site ABG pH ABG pCO2 ABG pO2 ABG PO2/FiO2 Ratio ABG HCO3 ABG O2 Saturation ABG O2 Content ABG Base Excess A-a Gradient Oxyhemoglobin Total Hemoglobin O2 Delivery Device O2 Liters/Min FiO2 Sodium 137 Potassium 4.2 Chloride 104 Carbon Dioxide 27 Anion Gap 6 BUN 31 H Creatinine 1.50 H Estim Creat Clear Calc 26 Estimated GFR 34 L Glucose 168 H Calcium 9.0 Total Bilirubin 0.9 AST 36 A
[2023-11-20 09:12] LABS: Basophils Percent Auto 0.2 % (0.2-1.2); Hematocrit 37.3 % (37.0-47.0); Hemoglobin 11.9 g/dL (12.0-15.0); Immature Granulocyte Absolute 0.06 K/mm3 (0.00-0.031); Immature Granulocyte Percent A 0.5 % (0-0.5); Immature Platelet Fraction Pct 10.6 % (0.9-11.2); Lymphocytes Absolute Auto 0.49 K/mm3 (0.9-3.2); Lymphocytes Percent Auto 4.5 % (18.3-44.2); Mean Corpuscular HGB Conc 31.9 g/dl (32-36); Mean Corpuscular Hemoglobin 28.3 pg (26-34); Mean Corpuscular Volume 88.8 fl (80-100); Mean Platelet Volume 13.4 fl (7.4-10.4); Monocytes Absolute Auto 0.1 K/mm3 (0.1-0.6); Monocytes Percent Auto 1.1 % (2.6-8.5); Neutrophils Absolute Auto 10.3 K/mm3 (1.3-6.7); Neutrophils Percent Auto 93.7 % (45.5-73.1); Platelet Count Result 97 k/mm3 (150-375); Red Cell Distribution Width 12.9 % (11.5-14.5)
[2023-11-20 09:24] LABS: Anion Gap 11 mmol/L (4-12); Blood Urea Nitrogen 35 mg/dL (7-17); Calcium 8.9 mg/dL (8.4-10.2); Carbon Dioxide 22 mmol/L (22-30); Chloride 103 mmol/L (98-107); Estimated CRCL calculation 28 ml/min; Estimated Glomerular Filt Rate 36; Glucose 269 mg/dL (65-110); Potassium 3.7 mmol/L (3.4-5.0); Sodium 136 mmol/L (137-145)
[2023-11-20] MEDS: ASPIRIN 325 MG ENTERIC TABLET PO (09:30)
[2023-11-20] MEDS: FERROUS GLUCONATE 324 MG TABLET PO (09:30)
[2023-11-20] MEDS: PANTOPRAZOLE 40 MG TABLET PO (09:30)
[2023-11-20] MEDS: EMPAGLIFLOZIN 10 MG TABLET PO (09:30)
[2023-11-20 09:40] LABS: Procalcitonin 0.1 ng/mL
== END 2023-11-20 13:34 | disposition home or self-care (01) ==
LOC: ANHED 11-20 01:14 → ANHIMU 11-20 03:00
PROVIDERS: Admitting Provider Internal Medicine; Emergency Provider Emergency Medicine; PCP Nurse Practitioner Family; Visit Provider General Practice
DX: J98.4 Other disorders of lung (principal); R06.00 Dyspnea, unspecified; I48.0 Paroxysmal atrial fibrillation; D69.6 Thrombocytopenia, unspecified; I11.0 Hypertensive heart disease with heart failure; I50.9 Heart failure, unspecified; I25.10 Atherosclerotic heart disease of native coronary artery without angina pectoris; E11.9 Type 2 diabetes mellitus without complications; I27.20 Pulmonary hypertension, unspecified; E78.5 Hyperlipidemia, unspecified; K21.9 Gastro-esophageal reflux disease without esophagitis; I25.2 Old myocardial infarction; E55.9 Vitamin D deficiency, unspecified; Z20.822 Contact with and (suspected) exposure to COVID-19; Z86.73 Personal history of transient ischemic attack (TIA), and cerebral infarction without residual deficits; Z85.3 Personal history of malignant neoplasm of breast; Z85.89 Personal history of malignant neoplasm of other organs and systems; Z92.21 Personal history of antineoplastic chemotherapy; Z92.3 Personal history of irradiation; Z79.84 Long term (current) use of oral hypoglycemic drugs; Z95.5 Presence of coronary angioplasty implant and graft; Z90.5 Acquired absence of kidney; Z95.0 Presence of cardiac pacemaker; Z79.82 Long term (current) use of aspirin
CPT/HCPCS: 36415; 36600; 71045; 71275; 80048; 80053; 82805; 83690; 83735; 83880; 84145; 84484; 85025; 85055; 85380; 85610; 85730; 87637; 93005; 94640; 96365; 96366; 96368; 96375; 96376; 99285; A9270; G0378; J0696; J1100; Q9967

== ENCOUNTER 2023-11-23 10:12 | Outpatient (CLI) | payer MEDICARE, SELFPAY ==
[2023-11-23 10:28] LABS: Basophils Absolute Auto 0.1 K/mm3 (0.0-0.1); Basophils Percent Auto 0.6 % (0.2-1.2); Eosinophils Absolute Auto 0.1 K/mm3 (0-0.3); Eosinophils Percent Auto 0.8 % (0-4.4); Hematocrit 37.8 % (37.0-47.0); Hemoglobin 11.7 g/dL (12.0-15.0); Immature Granulocyte Absolute 0.07 K/mm3 (0.00-0.031); Immature Granulocyte Percent A 0.7 % (0-0.5); Lymphocytes Absolute Auto 0.98 K/mm3 (0.9-3.2); Lymphocytes Percent Auto 9.9 % (18.3-44.2); Mean Corpuscular Hemoglobin 27.9 pg (26-34); Mean Platelet Volume 12.1 fl (7.4-10.4); Monocytes Absolute Auto 0.6 K/mm3 (0.1-0.6); Monocytes Percent Auto 6.5 % (2.6-8.5); Neutrophils Percent Auto 81.5 % (45.5-73.1); Platelet Count Result 101 k/mm3 (150-375); White Blood Count 9.9 K/mm3 (4.5-10.0)
== END 2023-11-23 10:13 | disposition home or self-care (01) ==
LOC: ANHLAB 10:14
PROVIDERS: PCP Nurse Practitioner Family; Visit Provider General Practice
DX: J98.4 Other disorders of lung (principal)
CPT/HCPCS: 36415; 85025

== ENCOUNTER 2023-12-05 16:04 | Outpatient (CLI) | payer MEDICARE, SELFPAY ==
--- NOTE | ~2023-12-05 | US_ITS ---
Thyroid ultrasound. Clinical History: Thyroid nodule COMPARISON: 10/21/2021 Findings: Real-time sonography of the thyroid gland was performed. The right lobe measures 4.8 x 1.4 x 1.4 cm. The left lobe measures 5.0 x 1.7 x 1.7 cm. The isthmus is 3 mm in AP diameter. There is a 1.0 cm spongiform, probably cystic nodule at the right upper pole. There is an additional 0.7 cm cystic nodule at the right lower pole. There is 0.7 cm nodule at the left upper pole, probably cystic with internal colloid/debris. There is a 2.8 x 1.8 x 1.9 cm nearly isoechoic solid nodule at the left lower pole. Impression: Bilateral thyroid nodules are similar to prior exam, including dominant solid nodule at the left lowe r pole, as detailed above.. Reviewed, dictated and finalized at [facility]. Impression: Bilateral thyroid nodules are similar to prior exam, including dominant solid n odule at the left lower pole, as detailed above..
== END 2023-12-05 16:05 | disposition home or self-care (01) ==
PROVIDERS: PCP Nurse Practitioner Family; Visit Provider Nurse Practitioner Family
DX: E04.2 Nontoxic multinodular goiter (principal)
CPT/HCPCS: 76536

== ENCOUNTER 2023-12-25 09:54 | Outpatient (CLI) | payer MEDICARE, SELFPAY ==
[2023-12-25 10:44] LABS: Basophils Percent Auto 0.4 % (0.2-1.2); Eosinophils Percent Auto 0.3 % (0-4.4); Hematocrit 39.9 % (37.0-47.0); Hemoglobin 12.8 g/dL (12.0-15.0); Immature Granulocyte Absolute 0.04 K/mm3 (0.00-0.031); Immature Granulocyte Percent A 0.4 % (0-0.5); Immature Platelet Fraction Pct 10.7 % (0.9-11.2); Lymphocytes Absolute Auto 1.05 K/mm3 (0.9-3.2); Lymphocytes Percent Auto 10.8 % (18.3-44.2); Mean Corpuscular HGB Conc 32.1 g/dl (32-36); Mean Corpuscular Hemoglobin 28.6 pg (26-34); Mean Corpuscular Volume 89.1 fl (80-100); Monocytes Absolute Auto 0.6 K/mm3 (0.1-0.6); Monocytes Percent Auto 5.8 % (2.6-8.5); Neutrophils Percent Auto 82.3 % (45.5-73.1); Platelet Count Result 87 k/mm3 (150-375); Red Blood Count 4.48 M/mm3 (4.2-5.4); Red Cell Distribution Width 12.9 % (11.5-14.5); White Blood Count 9.7 K/mm3 (4.5-10.0)
[2023-12-25 10:56] LABS: Alanine Aminotransferase 14 U/L (6-35); Albumin Level 4.2 g/dL (3.5-5.1); Alkaline Phosphatase 146 U/L (38-126); Anion Gap 9 mmol/L (4-12); Aspartate Amino Transferase 27 U/L (14-36); Bilirubin,Total 1.1 mg/dL (0.2-1.3); Blood Urea Nitrogen 31 mg/dL (7-17); Calcium 9.6 mg/dL (8.4-10.2); Carbon Dioxide 29 mmol/L (22-30); Chloride 99 mmol/L (98-107); Estimated Glomerular Filt Rate 40; Glucose 158 mg/dL (65-110); Potassium 3.6 mmol/L (3.4-5.0); Sodium 137 mmol/L (137-145)
[2023-12-25 11:17] LABS: Free T4 Free Thyroxine 1.41 ng/mL (0.78-2.19)
[2023-12-25 11:19] LABS: Platelet Estimate Decreased (Adequate); Schistocytes None Seen
[2023-12-25 11:20] LABS: Hemoglobin A1C 7.7 % (<5.7)
[2023-12-25 11:25] LABS: Thyroid Stimulating Hormone 0.452 uIU/mL (0.465-4.680)
== END 2023-12-25 09:55 | disposition home or self-care (01) ==
PROVIDERS: PCP Nurse Practitioner Family; Visit Provider Nurse Practitioner Family
DX: E78.5 Hyperlipidemia, unspecified (principal); I10 Essential (primary) hypertension; E11.65 Type 2 diabetes mellitus with hyperglycemia; D50.8 Other iron deficiency anemias; R79.89 Other specified abnormal findings of blood chemistry
CPT/HCPCS: 36415; 80053; 83036; 84439; 84443; 85025; 85055

== ENCOUNTER 2024-01-01 13:12 | Outpatient (CLI) | payer MEDICARE, SELFPAY ==
--- NOTE | ~2024-01-01 | US_ITS ---
US pelvic complete w TV Ordering provider: Nick Hernandes MD History: . pelvic and perineal pain . Comparison: None. Technique: Transabdominal and endovaginal ultrasound of the pelvis (Doppler ultrasound interrogation techniques used as needed for this exam.) FINDINGS: CERVIX: Normal. UTERUS: Measures 8.2x 3.3x 4.5 cm in length which is within normal limits and is anteverted. No myom etrial masses. Calcification the wall of the uterus is noted. ENDOMETRIUM: Normal in thickness measuring 4.5 mm. No endometrial masses, cysts or fluid. CUL DE SAC: Minimal free fluid. RIGHT OVARY: Not visualized. LEFT OVARY: Not visualized. ADNEXA: Normal. No mass. IMPRESSION: Calcifications in the wall of the uterus. Ovaries not visualized. Minimal free fluid in the pelvis. O therwise, normal pelvic ultrasound. Reviewed, dictated and finalized at location A. IMPRESSION: Calcifications in the wall of the uterus. Ovaries not visualized. Minimal free fluid in the pelvis. Otherwise, normal pelvic ultrasound.
== END 2024-01-01 13:13 ==
LOC: MICIMG 13:13
PROVIDERS: PCP Obstetrics & Gynecology; Visit Provider Obstetrics & Gynecology
DX: N85.8 Other specified noninflammatory disorders of uterus (principal)
CPT/HCPCS: 76830; 76856

== ENCOUNTER 2024-01-16 10:28 | Outpatient (CLI) | payer MEDICARE, SELFPAY ==
--- NOTE | ~2024-01-16 | MM_ITS ---
EXAMINATION: MM diagnostic lucinda BI w david HISTORY: Chronic left breast lump without significant change from prior surgery. TECHNIQUE: Additional 3-D tomosynthesis images of the breasts were performed and synthetic 2-D images were generated. CAD analysis was submitted and interpreted. COMPARISON: Comparison to multiple prior studies sequentially, with oldest reviewed study dated 07/27. BREAST PARENCHYMAL COMPOSITION: Not dense: There are scattered areas of fibroglandular density. FINDINGS: There is distortion in the upper outer quadrant of the left breast with associated coarse c alcifications, consistent with prior lumpectomy with fat necrosis. There are coarse calcifications of the right breast unchanged, consistent with fat necrosis. No new masses, calcifications or principal security architect ural distortion in either breast to suggest malignancy. IMPRESSION: 1. No evidence for malignancy in either breast. 2. Routine yearly screening mammogram and regular clinical breast examination are recommended. BI-RADS Category 2: Benign finding(s). Reviewed, dictated and finalized at location B. IMPRESSION: 1. No evidence for malignancy in either breast. 2. Routine yearly screening mammogram and regular clinical breast examination a re recommended. BI-RADS Category 2: Benign finding(s).
== END 2024-01-16 10:29 | disposition home or self-care (01) ==
LOC: ANHIMG 10:29
PROVIDERS: PCP Nurse Practitioner Family; Visit Provider Obstetrics & Gynecology
DX: R92.30 Dense breasts, unspecified (principal); Z85.3 Personal history of malignant neoplasm of breast
CPT/HCPCS: 77062; 77066; G0279

== ENCOUNTER 2024-03-17 20:00 | Emergency (ER) | payer MEDICARE, SELFPAY ==
--- NOTE | ~2024-03-17 | CT_ITS ---
Clinical Indication: Pulmonary embolus CT Scan of the Chest with Contrast: Technique: Contiguous sections were acquired throughout the chest after intravenous administration of 100 cc of Omnipaque 350. Dose reduction technique was used on this scan by utilizing automated expos ure control and iterative reconstruction technique. The dose-length product (DLP) was 347.68 mGy-cm. COMPARISON: 11/19/2023 Findings: There is no evidence of any significant mediastinal, hilar or axillary lymphadenopathy. There is no f illing defect in the pulmonary arterial tree to suggest pulmonary embolus. There is no evidence of ao rtic dissection or aneurysm. There is no evidence of pleural or pericardial effusion. 5 mm left lower lobe pulmonary nodule is essentially stable from prior exams (axial image 63). Images through the upper abdomen reveal stable small left adrenal nodule. Impression: No evidence of pulmonary embolus, aortic dissection, or aortic aneurysm. Stable 5 mm left lower lobe pulmonary nodule. Reviewed, dictated and finalized at [facility]. Impression: No evidence of pulmonary embolus, aortic dissection, or aortic aneurysm. Stable 5 mm left lower lobe pulmonary nodule.
--- NOTE | ~2024-03-17 | XR_ITS ---
EXAMINATION: XR chest 1V portable Exam Date/Time: 03/17/2024 20:40 CDT HISTORY: chest pain Comparison: 11/19/2023. RESULT: Lines, tubes, and devices: Left chest pacer with intact leads. Atrial occlusion device. Left axillar y clips. Lungs and pleura: Senescent change, otherwise clear. Cardiomediastinal silhouette: Stable. Calcified lymph nodes. Other: No acute osseous or upper abdominal finding. Stable calcifications in the left breast and ove rlying the right breast or right lateral chest wall soft tissues. IMPRESSION: No acute cardiopulmonary process. Reviewed, dictated and finalized at location [facility].
--- NOTE | 2024-03-17 20:05 | ECG_ITS ---
Test Date: 2024-03-17 20:20:58 Measurements Intervals [place] Rate: 97 P: 0 [place]: 0 QRS: -56 QRSD: 82 T: 20 QT: 365 QTc: 466 Interpretive Statements ATRIAL FIBRILLATION INDETERMINATE AXIS POSSIBLE INFERIOR MYOCARDIAL INFARCTION , PROBABLY OLD [30 ms Q WAVE IN II/aVF] Compared to ECG 11/19/2023 20:46:26 T-wave abnormality no longer present Myocardial infarct finding still present Electronically Signed On 03-17-2024 20:37:01 CDT by Maxime Aguero M.D.
[2024-03-17 20:10] VITALS: BP 101/61; PULSE 95; RESP 16; TEMP 36.3; O2SAT 97
--- NOTE | 2024-03-17 20:21 | ED.CHESTPAIN ---
HPI - Chest Pain General Chief Complaint: Chest Pain Stated Complaint: L CHEST PAIN, HX PACER AND AFIB Time Seen by Provider: 03/17/24 20:04 History of Present Illness HPI narrative: 79-year-old female with a past medical history significant for coronary artery disease, CHF with preserved ejection fraction, diabetes, history of breast cancer in remission. She also has a history of a Watchman implantation and not presently on any anticoagulation aside from aspirin. Presents to the emergency depart with sudden-onset left-sided chest discomfort. She states it is underneath her left breast and worse with inhalation and movement. She woke up from sleep with this. Denies any trauma, falls or injuries. Denies any epigastric or substernal chest pain, no nausea, vomiting, shortness of breath. Denies any diarrhea constipation, urinary issues. She was otherwise in her normal state of health. No recent medication changes according to the patient. No history of DVT or PE to the patient's knowledge. Related Data Home Medications Medication Instructions Recorded Confirmed atorvastatin 40 mg tablet 40 mg PO HS 04/30/19 12/26/23 ascorbic acid (vitamin C) 250 mg 1,000 mg PO DAILY 09/29/20 12/26/23 tablet ferrous sulfate 325 mg (65 mg 325 mg PO BID 09/29/20 12/26/23 iron) tablet (Iron (ferrous sulfate)) lactobacillus combination no.4 3 3,000 mmu cells PO DAILY 05/18/21 12/26/23 billion cell capsule (Probiotic) multivitamin with minerals-folic 1 tablet PO DAILY 11/02/21 12/26/23 acid 0.4 mg tablet omega 2-mpu-fep-fish oil 1,000 mg 1 cap PO DAILY 11/02/21 12/26/23 (120 mg-180 mg) capsule (Fish Oil) furosemide 20 mg tablet 20 mg PO BID 09/16/22 12/26/23 empagliflozin 10 mg tablet 10 mg PO DAILY 01/30/23 12/26/23 (Jardiance) calcium polycarbophil 625 mg 1,250 mg PO BID PRN Constipation 06/20/23 12/26/23 tablet (FiberCon) Allergies Allergy/AdvReac Type Severity Reaction Status Date / Time amoxicillin AdvReac Mild Diarrhea Verified 03/17/24 20:21 Review of Systems Review of Systems: As reviewed above in HPI PMFSH Past Medical History Medical History Arthritis BPPV (benign paroxysmal positional vertigo) CAD (coronary artery disease) CHF (congestive heart failure) Cirrhosis New diagnosis March 2022 CVA (cerebral vascular accident) DDD (degenerative disc disease) Diastolic dysfunction Echocardiogram 11/2021: Borderline left ventricular hypertrophy, overall good systolic function with EF of 63%, small area of the basal inferior wall hypokinesis, borderline global longitudinal strain, diastolic dysfunction, moderate left atrial enlargement, mild pulmonary hypertension DM (diabetes mellitus) Dyslipidemia Gastric polyps GERD (gastroesophageal reflux disease) Hiatal hernia History of colon polyps History of GI bleed Hx of breast cancer Stage II breast cancer with 1 positive lymph node status post chemotherapy and radiation Hypertension Hypovitaminosis D Non-STEMI (non-ST elevated myocardial infarction) Obesity Paroxysmal atrial fibrillation Shingles Takotsubo cardiomyopathy Thrombocytopenia TIA (transient ischemic attack) Surgical History Surgical History History of cholecystectomy History of colonoscopy with polypectomy Most recent September 2020 History of dilation and curettage History of esophagogastroduodenoscopy (EGD) Most recent EGD 11/18/2021 demonstrated multiple gastric polyps several of which were removed. History of heart artery stent (~2018) LAD performed at [place] History of hysteroscopy (~04/07/23) [facility] D&C, endometrial polypectomy. Benign path. Dr Hernandes (PMB) History of mastectomy (11/2011) Partial left breast History of nephrectomy, right History of removal of cyst from finger Hx of bilateral cataract extraction Hx of cardiac cath with stent placement
[2024-03-17] MEDS: MORPHINE SULFATE (*CRX) 4 MG/ML INJ IV PUSH ×2 (20:54→22:39)
[2024-03-17] MEDS: LACTATED RINGERS 1,000 ML 999 ML IV CONT (20:54)
[2024-03-17 20:58] LABS: Add Urine Microscopic? NO; Appearance Urine Clear (Clear); Basophils Percent Auto 0.3 % (0.2-1.2); Bilirubin Urine Negative (Negative); Blood Urine Negative (Negative); Color Urine Yellow (Yellow); Eosinophils Percent Auto 0.2 % (0-4.4); Glucose Urine UA 2+ mg/dL (Negative); Hematocrit 39.7 % (37.0-47.0); Hemoglobin 13.3 g/dL (12.0-15.0); Immature Granulocyte Absolute 0.03 K/mm3 (0.00-0.031); Immature Granulocyte Percent A 0.2 % (0-0.5); Ketones Urine Negative (Negative); Leukocyte Esterase Ur Negative LEU/UL (Negative); Lymphocytes Absolute Auto 1.27 K/mm3 (0.9-3.2); Lymphocytes Percent Auto 10.1 % (18.3-44.2); Mean Corpuscular HGB Conc 33.5 g/dl (32-36); Mean Corpuscular Hemoglobin 28.5 pg (26-34); Mean Corpuscular Volume 85.2 fl (80-100); Mean Platelet Volume 12.9 fl (7.4-10.4); Monocytes Absolute Auto 0.7 K/mm3 (0.1-0.6); Monocytes Percent Auto 5.3 % (2.6-8.5); Neutrophils Absolute Auto 10.5 K/mm3 (1.3-6.7); Neutrophils Percent Auto 83.9 % (45.5-73.1); Nitrate Urine Negative (Negative); Platelet Count Result 102 k/mm3 (150-375); Protein Urine Negative (Negative); Red Blood Count 4.66 M/mm3 (4.2-5.4); Red Cell Distribution Width 12.9 % (11.5-14.5); Urobilinogen Urine 0.2 mg/dL (<2.0); White Blood Count 12.5 K/mm3 (4.5-10.0)
[2024-03-17 20:59] VITALS: BP 115/75; PULSE 89; RESP 14; O2SAT 98
[2024-03-17 21:17] LABS: Alanine Aminotransferase 16 U/L (6-35); Alkaline Phosphatase 155 U/L (38-126); Anion Gap 11 mmol/L (4-12); Aspartate Amino Transferase 36 U/L (14-36); Blood Urea Nitrogen 32 mg/dL (7-17); Calcium 9.2 mg/dL (8.4-10.2); Carbon Dioxide 27 mmol/L (22-30); Chloride 98 mmol/L (98-107); Estimated CRCL calculation 28 ml/min; Estimated Glomerular Filt Rate 36; Glucose 192 mg/dL (65-110); Lipase 99 U/L (23-300); Potassium 3.3 mmol/L (3.4-5.0); Sodium 136 mmol/L (137-145)
[2024-03-17 21:23] LABS: INR 1.1; Prothrombin Time 14.9 Seconds (11.1-14.7)
[2024-03-17 21:24] LABS: Partial Thromboplastin Time 32.7 Seconds (22.3-36.8)
[2024-03-17 21:29] LABS: D Dimer 0.85 ug/mL (<0.48); Troponin I < 0.012 ng/mL (0.000-0.034)
[2024-03-17 22:38] VITALS: BP 110/62; PULSE 100; RESP 16; O2SAT 98
--- NOTE | 2024-03-17 23:31 | ECG_ITS ---
Test Date: 2024-03-17 23:54:14 Measurements Intervals [place] Rate: 99 P: 0 MT: 0 QRS: -52 QRSD: 81 T: 3 QT: 355 QTc: 457 Interpretive Statements ATRIAL FIBRILLATION INDETERMINATE AXIS PATTERN CONSISTENT WITH PULMONARY DISEASE INFERIOR MYOCARDIAL INFARCTION , PROBABLY OLD [40+ ms Q WAVE AND/OR ST/T ABNORMALITY IN II/aVF] Compared to ECG 03/17/2024 20:20:58 No significant changes Electronically Signed On 03-18-2024 14:29:52 CDT by Luis Pierson M.D.
[2024-03-18 00:25] LABS: Troponin I < 0.012 ng/mL (0.000-0.034)
== END 2024-03-18 01:00 | disposition home or self-care (01) ==
PROVIDERS: Emergency Provider Student in an Organized Health Care Education/Training Program; PCP Nurse Practitioner Family
DX: R07.89 Other chest pain (principal); I50.9 Heart failure, unspecified; I25.10 Atherosclerotic heart disease of native coronary artery without angina pectoris; I25.2 Old myocardial infarction; I48.0 Paroxysmal atrial fibrillation; E11.9 Type 2 diabetes mellitus without complications; E78.5 Hyperlipidemia, unspecified; E55.9 Vitamin D deficiency, unspecified; K74.60 Unspecified cirrhosis of liver; K21.9 Gastro-esophageal reflux disease without esophagitis; M19.90 Unspecified osteoarthritis, unspecified site; Z95.0 Presence of cardiac pacemaker; Z95.5 Presence of coronary angioplasty implant and graft; Z86.73 Personal history of transient ischemic attack (TIA), and cerebral infarction without residual deficits; Z85.3 Personal history of malignant neoplasm of breast; Z86.0100 Personal history of colon polyps, unspecified; Z90.49 Acquired absence of other specified parts of digestive tract; Z90.12 Acquired absence of left breast and nipple; Z98.42 Cataract extraction status, left eye; Z98.41 Cataract extraction status, right eye; R91.1 Solitary pulmonary nodule; Z79.84 Long term (current) use of oral hypoglycemic drugs; Z79.899 Other long term (current) drug therapy
CPT/HCPCS: 36415; 71045; 71275; 80053; 81003; 83690; 84484; 85025; 85380; 85610; 85730; 93005; 96361; 96374; 96376; 99284; J2270; J7120; Q9967

== ENCOUNTER 2024-03-26 12:50 | Outpatient (CLI) | payer MEDICARE, SELFPAY ==
--- NOTE | ~2024-03-26 | CT_ITS ---
CLINICAL INDICATION: Abdominal pain with palpable mass in the left upper abdomen. Personal history of both breast cancer (2012) and renal cell carcinoma in 2022, post right-sided nephrectomy.. COMPARISON: 04/27/2022. TECHNIQUE: An enhanced CT of the abdomen and pelvis was performed utilizing multislice spiral Door 6 ue reconstructed at 5 mm slice thickness. Coronal and sagittal reconstructions were performed. This CT examination was performed utilizing dose reduction techniques. FINDINGS/OBSERVATIONS: Visualized lower thorax:Nodular pleural thickening within the left lung base, an interval change from 2021 examination. The remainder of the bilateral lung bases are unremarkable. The heart is of normal size, without pericardial effusion. A small hiatal hernia is present. Liver: The liver is unremarkable in echogenicity and size measuring 17 cm in longitudinal dimension. Gallbladder and biliary system: The gallbladder is surgically absent. Pancreas: Bulky calcifications within the pancreas, likely vascular in origin. Prominence of the main pancreatic duct, without israel dilatation. Spleen: The spleen is not enlarged and enhances homogeneously. Kidneys: The right kidney is surgically absent. No discrete abnormality is detected within the surgical bed. The left kidney enhances homogeneously. Adrenal glands: Unremarkable Gastrointestinal tract: Colonic diverticulosis primarily within the descending colon as well as the r ectosigmoid colon. No significant surrounding inflammatory change is present to suggest diverticuliti s. Appendix:The air-filled appendix is of normal caliber (axial series image 73). Vasculature: Prominence of the left gonadal vein. Calcification within the abdominal aorta, without dissection or significant dilatation. Lymph nodes: Scattered nonpathologically enlarged or morphologically suspicious lymph nodes within th e bilateral groins. No pathologically enlarged or morphologically suspicious lymph nodes at the root of the mesentery or within the retroperitoneum. Pelvic structures:The uterus is anteverted and anteflexed. The bladder is decompressed, limiting evaluation. Multiple phleboliths within the pelvis. The bilateral ovaries are unremarkable. Body wall and musculoskeletal: Degenerative disease within the lower thoracic and lumbosacral spines with osteophyte formation, disc space narrowing, endplate changes and vacuum phenomenon. No fascial defect within the anterior abdominal wall. IMPRESSION: Nodular pleural thickening within the left lung base, an interval change from 2021 examination. Otherwise, examination is largely unchanged from prior study dated 04/27/2022. No cross-sectional imaging findings is present to account for the palpable mass within the left upp er quadrant, as described in the patient's history. Reviewed, dictated and finalized at location [facility]. IMPRESSION: Nodular pleural thickening within the left lung base, an interval change from 2 022 examination. Otherwise, examination is largely unchanged from prior study dated 04/27/2022. No cross-sectional imaging findings is present to account for the palpable mas s within the left upper quadrant, as described in the patient's history.
[2024-03-26 13:14] LABS: Estimated Glomerular Filt Rate 40
== END 2024-03-26 12:51 | disposition home or self-care (01) ==
LOC: MICIMG 12:52
PROVIDERS: PCP Nurse Practitioner Family; Visit Provider Nurse Practitioner Family
DX: R10.9 Unspecified abdominal pain (principal); N28.89 Other specified disorders of kidney and ureter; R19.02 Left upper quadrant abdominal swelling, mass and lump
CPT/HCPCS: 74177; Q9967

== ENCOUNTER 2024-04-02 11:25 | Outpatient (CLI) | payer MEDICARE, SELFPAY ==
[2024-04-02 12:09] LABS: Anion Gap 9 mmol/L (4-12); Blood Urea Nitrogen 21 mg/dL (7-17); Calcium 9.3 mg/dL (8.4-10.2); Carbon Dioxide 29 mmol/L (22-30); Chloride 100 mmol/L (98-107); Estimated Glomerular Filt Rate 54; Glucose 121 mg/dL (65-110); Magnesium 1.8 mg/dL (1.6-2.3); Sodium 138 mmol/L (137-145)
== END 2024-04-02 11:26 | disposition home or self-care (01) ==
LOC: ANHLAB 11:30
PROVIDERS: PCP Nurse Practitioner Family; Visit Provider Nurse Practitioner Family
DX: E87.6 Hypokalemia (principal)
CPT/HCPCS: 36415; 80048; 83735

== ENCOUNTER 2024-07-01 14:00 | Outpatient (CLI) | payer MEDICARE, SELFPAY ==
--- NOTE | ~2024-07-01 | XR_ITS ---
EXAMINATION: XR chest 2V 07/01/2024 14:30 INDICATION: Pleural effusion PROCEDURE: AP view of the chest COMPARISON: Comparison to multiple prior studies sequentially, with oldest reviewed study dated 05/05. FINDINGS: The lungs are clear. The cardiomediastinal silhouette is within normal limits. There are no pleural effusions. There is no pneumothorax suspected. Right-sided pacemaker is present with malgorzata ds in expected position. Stable calcified left-sided lymph nodes. IMPRESSION: 1: NO ACUTE CARDIOPULMONARY DISEASE. Reviewed, dictated and finalized at location A. EAR POWER PLANT ENGINEER
[2024-07-01 14:44] LABS: Basophils Percent Auto 0.5 % (0.2-1.2); Eosinophils Absolute Auto 0.1 K/mm3 (0-0.3); Eosinophils Percent Auto 0.7 % (0-4.4); Hematocrit 39.3 % (37.0-47.0); Hemoglobin 12.5 g/dL (12.0-15.0); Immature Granulocyte Absolute 0.02 K/mm3 (0.00-0.031); Immature Granulocyte Percent A 0.2 % (0-0.5); Immature Platelet Fraction Pct 10.6 % (0.9-11.2); Lymphocytes Absolute Auto 1.19 K/mm3 (0.9-3.2); Lymphocytes Percent Auto 13.7 % (18.3-44.2); Mean Corpuscular HGB Conc 31.8 g/dl (32-36); Mean Corpuscular Hemoglobin 28.5 pg (26-34); Mean Corpuscular Volume 89.5 fl (80-100); Mean Platelet Volume 12.9 fl (7.4-10.4); Monocytes Absolute Auto 0.5 K/mm3 (0.1-0.6); Monocytes Percent Auto 5.7 % (2.6-8.5); Neutrophils Absolute Auto 6.9 K/mm3 (1.3-6.7); Neutrophils Percent Auto 79.2 % (45.5-73.1); Platelet Count Result 84 k/mm3 (150-375); Red Blood Count 4.39 M/mm3 (4.2-5.4); Red Cell Distribution Width 12.5 % (11.5-14.5); White Blood Count 8.7 K/mm3 (4.5-10.0)
--- OUTSIDE RECORDS SUMMARY | 2024-07-01 14:45 | XMS_ITS | Encounter Summary ---
Author Organization [facility] Address [address] [place] [address] Care Team Providers Care Industrial Designer Name Role Phone Marie Matias MD Unavailable [phone] Encounter Details Date Type Department Care Team (Late Contact Info) Description 11/22/2022 Lab Requisition [facility] [address] [facility] [place] [address] Jyotsna Tineo, DO [address] [facility] [address] [place] [address] Social History Tobacco Use Types Packs/Day Years Used Date Smoking Tobacco: Never Smokeless Tobacco: Never Alcohol Use Standard Drinks/Week Comments No 0 (1 standard drink = 0.6 oz pur e alcohol) Sex and Gender Information Value Date Recorded Sex Assigned at Not on file Gender Identity Not on file Sexual Orientation Not on file documented as of this encounter Functional Status Functional Status Response Date of Assess ment Is person deaf or have serious hearing difficult y? No 08/06/2014 Is person blind or have serious difficulty seein g? No 08/06/2014 Does person have serious dif ficulty walking/climbing stairs? No 08/06/2014 Does person have difficulty dressing/bathing? No 08/06/2014 Does person have difficulty doing errands alone? No 08/06/2014 Cognitive Status Response Date of Assessm ent Does person have difficulty concentrating/remembering/making decisions? No 08/06/2014 documented as of this encounter Plan of Treatment Upcoming Encounters Date Type Department Care Team (Late Contact Info) Description 10/08/2024 11:[address] [facility] [address] [place] [address] Lazaro Gonzales MD [address] [place] [address] 10/08/2024 1:00 PM CDT Office Visit [facility] [address] [place] [address] Lazaro Gonzales MD [address] [place] [address] documented as of this encounter Procedures Procedure Name Priority Date/Time Associated Diagnosis Comments DERMATOPATHOLOGY Routine 11/21/2022 1:39 PM CDT documented in this encounter Results * DERMATOPATHOLOGY (11/21/2022 1:39 PM CDT) Case Report Dermatopathology Report ? Case: [id number] ? Authorizing Provider: ??Jyotsna Tineo, ?? Collected: ? 11/21/2022 01:39 PM ? Ordering Location: ? [facility] ? Received: ?11/22/2022 12:49 PM ? Pathologist: ? Luh Ross MD ? Specimen: ?Skin, left forearm ? 3 4:14 PM CDT DERMATOPATHOLOGY LABORATORY Final Diagnosis Specimen A. 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 The specimen consists of a shave biopsy measuring 8x6x1 mm. Jar 0. 3 4:14 PM CDT DERMATOPATHOLOGY LABORATORY Microscopic Description Specimen A. SKIN, left forearm: The epidermis shows parakeratosis, full thickness disorderly maturation of keratinocytes, mitoses at different levels, and dyskeratotic cells. 3 4:14 PM CDT DERMATOPATHOLOGY LABORATORY Disclaimer An external and internal positive and negative controls are appropriate for the histochemical, immunohistochemical and immunofluorescence stain(s) in this case (if any), except where stated explicitly. The performance characteristics of the stain(s) cited in this report were developed and its performance characteristic determined by the Dermatopathology Laboratory at [facility], directed by Dr. Blair Garcia. These tests need not be, and therefore are not, approved by the [place] Food and Drug Administration. The tests are used for clinical purposes. Billing Codes Specimen Charges Stain Charges 57760 1 3 4:14 PM CDT DERMATOPATHOLOGY LABORATORY Embedded Images 3 4:14 PM CDT DERMATOPATHOLOGY LABORATORY Pathology/Cytolo gy TISSUE SPECIMEN FROM SKIN / Unknown 11/21/2022 1:39 PM CDT 11/22/2022 12:49 PM CDT Jyotsna Tineo DO LAB - PATHOLOGY/C YTOLOGY ORDERABLES DERMATOPATHOLOGY LABORATORY [facility] - Department of Dermatology [address], [address] Floor [place], [place] [id number] [place] [address] documented in this encounter Visit Diagnoses Not on filedocumented in this encounter Care Teams Industrial Designer Relationship Specialty Start Date End Date Marie Matias MD [address] [place] [address] Internal Medicine 11/23/21 documented as of this encounter
--- OUTSIDE RECORDS SUMMARY | 2024-07-01 14:45 | XMS_ITS | Encounter Summary ---
Author Organization [facility] Address [address] [place] [address] Care Team Providers Care Telecommunications Network Engineer Name Role Phone Marie Matias MD Unavailable [phone] Encounter Details Date Type Department Care Team (Late Contact Info) Description 01/03/2023 Lab Requisition [facility] [address] [facility] [place], [place] [address] Jyotsna Tineo, DO [address] [facility] [address] [place] [address] Social History Tobacco Use Types Packs/Day Years [...] Info) Description 10/08/2024 11:00 AM CDT Appointment [facility] [address] [place] [address] Lazaro Gonzales MD [address] [place] [address] 10/08/2024 1:00 PM CDT Office Visit [facility] [address] [facility] [place], [place] [address] Lazaro Gonzales MD [address] [place] [address] documented as of this encounter Procedures Procedure Name Priority Date/Time Associated Diagnosis Comments DERMATOPATHOLOGY Routine 01/03/2023 11:1 1 AM CDT documented in this encounter Results * DERMATOPATHOLOGY (01/03/2023 11:11 AM CDT) Case Report Dermatopathology Report ? Case: [id number] ? Authorizing Provider: ??Jyotsna Tineo DO ?? Collected: ? 01/03/2023 11:11 AM ? Ordering Location: ? [facility] ? Received: ?01/03/2023 03:19 PM ? Pathologist: ? Shaunna Garcia MD ? Specimen: ?Skin, left forearm ? 5:22 PM T DERMATOPATHOLOGY LABORATORY Final Diagnosis Specimen A. SKIN, left forearm: SQUAMOUS CELL CARCINOMA IN SITU (MACISA'S DISEASE) (D04.62) NOT PRESENT AT MARGIN DERMAL SCAR (L90.5) 5:22 PM [facility] DERMATOPATHOLOGY LABORATORY Clinical History SCCIS BX PROVEN Check margins 5:22 PM T DERMATOPATHOLOGY LABORATORY Gross Description Specimen A: Received is one formalin filled container labeled with the patient's name and designated left forearm. The specimen consists of a non-oriented ellipse of skin measuring 17y01k9 mm. The epidermal surface is unremarkable. The margin is inked green. The 12 o'clock and 6 o'clock tips are submitted in cassette 1. The remainder of the ellipse is serially sectioned and submitted in cassette 2-3. Jar 0. 5:22 PM [facility] DERMATOPATHOLOGY LABORATORY Microscopic Description Specimen A. SKIN, left forearm: The epidermis shows parakeratosis, full thickness disorderly maturation of keratinocytes, mitoses at different levels, and dyskeratotic cells. This lesion is not present at the margin of the specimen. There are fibroblasts and collagen bundles oriented parallel to the skin surface with elongated blood vessels, some of which are oriented perpendicular to the skin surface. 5:22 PM [facility] DERMATOPATHOLOGY LABORATORY Disclaimer An external and internal positive and negative controls are appropriate for the histochemical, immunohistochemical and immunofluorescence stain(s) in this case (if any), except where stated explicitly. The performance characteristics of the stain(s) cited in this report were developed and its performance characteristic determined by the Dermatopathology Laboratory at [facility], directed by Dr. Blair Garcia. These tests need not be, and therefore are not, approved by the [place] Food and Drug Administration. The tests are used for clinical purposes. Billing Codes Specimen Charges Stain Charges 25485 1 5:22 PM T DERMATOPATHOLOGY LABORATORY Embedded Images 5:22 PM CDT DERMATOPATHOLOGY LABORATORY Pathology/Cytolo gy TISSUE SPECIMEN FROM SKIN / Unknown 01/03/2023 11:11 AM CDT 01/03/2023 3:19 PM CDT Jyotsna Salas Tineo DO LAB - PATHOLOGY/C YTOLOGY ORDERABLES DERMATOPATHOLOGY LABORATORY [facility] - Department of Dermatology [facility] Specialized Medicine [address] [place] [address], [address] Floor [place], [place] [id number] [place] [address] documented in this encounter Visit Diagnoses Not on filedocumented in this encounter Care Teams Telecommunications Network Engineer Relationship Specialty [place] [address] [place] [phone] Internal Medicine 11/23/21 documented as of this encounter
--- OUTSIDE RECORDS SUMMARY | 2024-07-01 14:45 | XMS_ITS | Referral Summary ---
Author Organization [facility] [address] [place] [address] Care Team Providers Care Yarn Polishing Machine Operator Name Role Phone Pinky Louise MD Unavailable [phone] Mackenzie Tobin COMPUTER HARDWARE TECHNICIAN Unavailable [phone] Loki Viramontes MD Unavailable [phone] Frank Moses MD Unavailable [phone] Nicole Sierra NP Primary Care Provider [phone] Encounters Date Type Department Care Team Description 06/20/2024 1:45 PM POSTAL SERVICE MAIL PROCESSOR Procedure visit [facility] Otolaryngology [address] [place] [phone] Deanna Galvez Dizziness and giddiness (Primary Dx); Sensorineural hearing loss (SNHL) of both ears; Tinnitus of both ears 06/20/2024 2:00 PM POSTAL SERVICE MAIL PROCESSOR Office Visit [facility] Otolaryngology [address] [place] [phone] Mehul Mratinez II, MD Sensorineural hearing loss (SNHL) of both ears (Primary Dx); Dizziness and giddiness 05/13/2024 Orders Only [facility] Cardiology [facility] [facility] 8[address] [place] [address] [place] [address] Ignacio Obregon MD 05/01/2024 Telephone [facility] Cardiology [address] [place] [address] [place] [phone] Sindhu Patrick NP Med Management 04/22/[address] [phone] Sindhu Patrick NP 04/22/2024 11:30 AM POSTAL SERVICE MAIL PROCESSOR Office Visit [address] [phone] Sindhu Patrick NP Longstanding persistent atrial fibrillation (CMS/HCC) ([facility]); S/P placement of cardiac pacemaker; Presence of Watchman left atrial appendage closure device; Coronary artery disease involving penobscot coronary artery of penobscot heart without angina pectoris; Lipid screening; Takotsubo cardiomyopathy 04/03/2024 Telephone [facility] Cardiology [address] [place] [phone] Maria Isabel Cesar MD from Last 3 Months Allergies Active Allergy Reactions Criticality Noted Date Comments Adhesive Rash,Redness Medium 11/26/2018 Paper tape only pre patient Medications coenzyme Q10 200 mg capsuleIndicat ions:supplemen t Take 1 capsule (200 mg total) by mouth every morning supplement Active polycarbophil (FIBERCON) 625 mg tabletIndicati ons:constipati on Take 2 tablets (1,250 mg total) by mouth 2 (two) times a day Active OneTouch Ultra2 Meter misc USE TO TEST THREE TIMES DAILY 1 Active OneTouch Delica Plus Lancet 30 gauge misc 3 (three) times a day 1 Active ascorbic acid (VITAMIN C ORAL)Indicatio ns:supplement Take 1 tablet by mouth every morning Active semaglutide (RYBELSUS) 3 mg tabletIndicati ons:type 2 diabetes mellitus Take 1 tablet (3 mg total) by mouth automation design engineer before breakfast Active aspirin 325 mg tabletIndicati ons:prevention of thrombosis Take 1 tablet (325 mg total) by mouth every morning Active omega-3 fatty acids-fish oil (Fish OiL) 360-1,200 mg capsule Take 1 tablet by mouth every morning 2 03/07/[address] (PROTONIX) 40 mg EC tabletIndicati ons:Treatment of Non-Bleeding Gastric Disorder Take 1 tablet (40 mg total) by mouth daily 2 Active multivitamin capsuleIndicat ions:Vitamin Deficiency Prevention Take 1 capsule by mouth every morning Active acidophilus-pe ctin, citrus 100 million cell-10 mg capsuleIndicat ions:supplemen t- gut health Take 1 tablet by mouth every morning Active ferrous sulfate 325 mg (65 mg of elemental iron) tabletIndicati ons:Iron Deficiency Anemia Take 1 tablet (325 mg total) by mouth 2 (two) times a day with meals Active Jardiance 10 mg tablet TAKE 1 TABLET BY MOUTH EVERY DAY 90 tablet 3 4 Active furosemide (LASIX) 20 mg tabletIndicati ons:Edema, lower extremity TAKE 2 TABLETS BY MOUTH EVERY MORNING 180 tablet 2 4 Active atorvastatin (LIPITOR) 40 mg tablet TAKE 1 TABLET BY MOUTH DAILY 90 tablet 2 4 Active carvediloL (COREG) 25 mg tablet Take 1 tablet (25 mg total) by mouth 2 (two) times a day with meals Active metoprolol XL (TOPROL-XL) 100 mg 24 hr tablet Take 1 tablet (100 mg total) by mouth daily 4 06/20/19 25 Discontinu ed(Alterna te therapy) Active Problems Problem Noted Date Diagnosed Date Sensorineural hearing loss (SNHL) of both ears 0 06/20/2024 Dizziness and giddiness 06/20/2024 S/P placement of cardiac pacemaker 10/20/2022 Assessment & Plan (01/09/2024 4:12 PM CDT): 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 as programmed Lead impedances, sensing, and thresholds are stable No programming changes Continue remote monitoring quarterly Atrial fibrillation ([facility]) 10/11/2022 Sinus node dysfunction ([facility]) 10/10/2022 Assessment & Plan (10/10/2022 7:50 PM CDT): As per above. Chronic kidney disease (CKD), stage IV (severe) ([facility]) 10/10/2022 Assessment & Plan (10/11/2022 11:48 AM CDT): Stable on AM BMP -Avoid renal toxins, renally dose meds DM2 (diabetes mellitus, type 2) 10/10/2022 Assessment & Plan (10/11/2022 11:48 AM CDT): -Continue Jardiance. -Hold her rybelsus -SSI Acute on chronic congestive heart failure, unspecified heart failure type 08/27/2022 Renal mass 06/27/2022 Overview (06/27/2022): Added automatically from request for surgery [id number] A-fib ([facility]) 02/14/2022 Assessment & Plan (10/11/2022 11:47 AM CDT): Formal electrophysiology study report pending, though reported PPM placement (?lead issue) with deferment of AVN ablation and plan for follow-up procedure in several weeks. She is status post a Watchman procedure in the past given significant bleeding on anticoagulation. -s/p f/up CXR -Discussed with EP; ok for discharge with increased dose home metoprolol 50- >75mg QHS and 3 days keflex prophylaxis Assessment & Plan (02/16/2022 1:59 PM CDT): History of paroxysmal atrial fibrillation s/p PVI and watchman device in August [address] Obregon. Since then, maintained on sotalol with low burden of breakthrough afib. In January of this year developed 3 day episode of sustained breakthrough afib. Subsequently reported continued daily symptoms of palpitations and dyspnea. Now being electively admitted for amiodarone loading. She is regular rhythm on admission exam. - Stopped sotalol of last week - continue amiodarone 400mg TID, monitor daily EKG - baseline TFTs and LFTs wnl - PFTs completed - Will need instruction for yearly outpatient ophthalmology exams - STOP home metoprolol due to sinus node dysfunction / risk for bradycardia - Afib with history of stroke. She is s/p watchman device and does not need AC. Continue full dose aspirin. - Continuous telemetry Assessment & Plan (02/15/2022 1:49 PM CDT): History of paroxysmal atrial fibrillation s/p PVI and watchman device in August of [address] Obregon. Since then, maintained on sotalol with low burden of breakthrough afib. In January of this year developed 3 day episode of sustained breakthrough afib. Subsequently reported continued daily symptoms of palpitations and dyspnea. Now being electively admitted for amiodarone loading. She is regular rhythm on admission exam. - Stopped sotalol of last week - continue amiodarone 400mg TID, monitor daily EKG - baseline TFTs and LFTs wnl - PFTs completed - Will need instruction for yearly outpatient ophthalmology exams - STOP home metoprolol due to sinus node dysfunction / risk for bradycardia - Afib with history of stroke. She is s/p watchman device and does not need AC. Continue full dose aspirin. - Continuous telemetry Assessment & Plan (02/14/2022 7:43 PM CDT): History of paroxysmal atrial fibrillation s/p PVI and watchman device in August of [address] Obregon. Since then, maintained on sotalol with low burden of breakthrough afib. In January of this year developed 3 day episode of sustained breakthrough afib. Subsequently reported continued daily symptoms of palpitations and dyspnea. Now being electively admitted for amiodarone loading. She is regular rhythm on admission exam. - EKG on admission - CMP (including LFTs) - Thyroid function testing - PFTs ordered - Will need instruction for yearly outpatient ophthalmology exams - Stopped sotalol of last week - Plan for inpatient loading of amiodarone, starting tonight. 400 TID. - Continuous telemetry - daily EKG - STOP home metoprolol due to sinus node dysfunction / risk for bradycardia - Afib with history of stroke. She is s/p watchman device and does not need AC. Continue full dose aspirin. QT prolongation 03/10/2021 Chronic heart failure with p reserved ejection fraction (CMS/HCC) 11/07/2020 Assessment & Plan (10/11/2022 11:48 AM CDT): Patient appears euvolemic. -Continue her home furosemide. Assessment & Plan (11/07/2020 4:36 AM CDT): - Compensated. Euvolemic on exam - Continue home metop, losartan, and daily Lasix Presence of Watchman left atrial appendage closu re device 09/25/2020 Diabetes 08/28/2020 Assessment & Plan (02/16/2022 1:59 PM CDT): Takes metformin, semaglutide at home - Continue metformin. Hold semaglutide - SSI + accuchecks while inpatient - HgbA1C 5.9 Assessment & Plan (02/15/2022 1:50 PM CDT): Takes metformin, semaglutide at home - Continue metformin. Hold semaglutide - SSI + accuchecks while inpatient - HgbA1C 5.9 Assessment & Plan (02/14/2022 7:39 PM CDT): Takes metformin, semaglutide at home - Continue metformin. Hold semaglutide - SSI + accuchecks while inpatient - Check A1C Assessment & Plan (11/07/2020 4:36 AM CDT): - Hold orals and monitor on SSI Assessment & Plan (08/29/2020 10:45 AM CDT): - Patient with DM on home orals - Hold home orals. MDSSI, accuchecks. Assessment & Plan (08/28/2020 7:51 PM CDT): - Patient with DM on home orals - Hold home orals. MDSSI, accuchecks. Palpitations 07/25/2020 Gastrointestinal hemorrhage 07/11/2019 Overview (07/11/2019): Added automatically from request for surgery [id number] Coronary artery disease invo lving penobscot coronary artery of penobscot heart without angina pectoris 11/19/2018 Angina pectoris, unstable ([facility]/HCC) 11/07/2018 Overview (11/07/2018): Added automatically from request for surgery [id number] GI bleed 08/06/2018 Assessment & Plan (08/29/2020 10:45 AM CDT): - Patient with hx GIB and not previously on AC - As above, trial of AC given fresh Watchman procedure - Increase PO PPI to BID for discharge Assessment & Plan (08/28/2020 7:50 PM CDT): - Patient with hx GIB and not previously on AC - As above, trial of AC given fresh Watchman procedure - Increase PO PPI to BID - Closely monitor for GIB and trend Hgb Multiple gastric polyps 08/06/2018 Contraindication to anticoagulation therapy 09/2018 WILLIAM-inhibitor cough 08/16/2017 H/O TIA (transient ischemic attack) and stroke 1 07/03/2016 Other chest pain 05/03/2017 Dizziness 05/03/2017 Iron deficiency anemia 04/20/2016 Overview (09/09/2016): Iron deficiency anemia, unspecified iron deficiency anemia type Fatigue 02/17/2016 Overview (09/09/2016): Fatigue, unspecified type Malignant neoplasm of upper- outer quadrant of left breast in female, estrogen receptor positive (CMS/HCC) 07/21/2015 Overview (09/09/2016): Malignant neoplasm of female breast, unspecified laterality, unspecified site of breast Assessment & Plan (02/16/2022 1:59 PM CDT): s/p breast conservation surgery, chemotherapy, radiation and Tamoxifen therapy. Currently in remission, on tomoxifen therapy. Assessment & Plan (02/15/2022 1:51 PM CDT): s/p breast conservation surgery, chemotherapy, radiation and Tamoxifen therapy. Currently in remission, on tomoxifen therapy. Assessment & Plan (02/14/2022 7:41 PM CDT): s/p breast conservation surgery, chemotherapy, radiation and Tamoxifen therapy. Currently in remission, on tomoxifen therapy. Assessment & Plan (11/07/2020 4:36 AM CDT): - ER+, Her2 neg. Dx 2011 s/p chemo and radiation - Follows with Dr. Bustamante. Last seen 07/2020 - Continue home tamoxifen Assessment & Plan (08/29/2020 10:45 AM CDT): - Patient with hx breast cancer - Continue home tamoxifen. Outpatient follow up. Assessment & Plan (08/28/2020 7:53 PM CDT): - Patient with hx breast cancer - Continue home tamoxifen. Outpatient follow up. Mixed diabetic hyperlipidemi a associated with type 2 diabetes mellitus ([facility]) 07/21/2015 Overview (09/09/2016): Type 2 diabetes mellitus with complication Assessment & Plan (10/10/2022 7:49 PM CDT): Continue statin History of cerebrovascular disease 07/21/2015 Overview (09/09/2016): Hx TIA/stroke w/o resid Obesity with body mass index 30 or greater 07/21 Overview (09/09/2016): Obesity (BMI 30-39.9) Orthostatic hypotension 07/21/2015 Overview (09/09/2016): Orthostatic hypotension Abnormal cardiovascular stress test 09/02/2014 Overview (09/09/2016): Abnormal stress test Longstanding persistent atrial fibrillation ([facility]) 11/13/2013 Overview (09/09/2016): Paroxysmal atrial fibrillation Assessment & Plan (01/09/2024 4:16 PM CDT): Persistant AF and bradycardia s/p dual chamber pacemaker 10/10/2022. AV node ablation was diverted at implant due to RV pacing lead variability. Hospitalized in November 2023 with symptomatic AF RVR Metoprolol XL increased 100 mg daily HR improved since then with rates predominantly <100 bpm and she denies recurrent symptoms Normal device function today with stable RV lead impedence since implant If she has difficult to rate control AF, we discussed increasing AV gene agents verus AV node ablation. She is reluctant to pursue AV node ablation at this time She will monitor HR at home notify us for rates >100 and/or increased symptoms S/p Watchman LAAO - continue aspirin daily Assessment & Plan (11/07/2020 4:34 AM CDT): - History of paroxysmal atrial fibrillation with sinus dysfunction. Given history of GIB with oral AC, underwent ablation and watchman in 08/2020 - Presented with palpitations found to have AFwRVR to 130s in the ED. S/p cardioversion and now rates in the 60s. - No longer on AC after GIB 09/2020. Continues on ASA 325 and Plavix - Continue home sotalol and metoprolol - Monitor overnight. Symptoms resolved. Assessment & Plan (08/29/2020 10:45 AM CDT): - Patient with pAF not previously on AC due to GIB who is directly admitted for PVI and Watchman LIZZY occluder - Tolerated procedure well. - Continue home BB - EP saw today. Plan dc with eliquis and BID PPI. ASA started and plavix stopped - Discussed precautions and restrictions. Assessment & Plan (08/28/2020 7:49 PM CDT): - Patient with pAF not previously on AC due to GIB who is directly admitted for PVI and Watchman LIZZY occluder - Tolerated procedure well. - Reviewed EP fellow note and discussed with EP - EP hoping for brief trial of anticoagulation (e.g. ~ 1 mo) given fresh Watchman procedure - Will increase PO PPI to BID while on anticoagulation - Continue home BB - Monitor on telemetry Postprocedural hypotension Resolved Problems Problem Noted Date Diagnosed Date Resolved Date Chronic diastolic (congestive) heart failure 2 10/20/2022 Assessment & Plan (02/16/2022 1:59 PM CDT): -Gr II DD on TTE 07/2020 -appears euvolemic on exam -continue home lasix 20mg daily Assessment & Plan (02/15/2022 1:56 PM CDT): -Gr II DD on TTE 07/2020 -appears euvolemic on exam -continue home lasix 20mg daily Dyslipidemia 02/14/2022 07/28/2022 Assessment & Plan (02/16/2022 1:59 PM CDT): Continue lipitor Assessment & Plan (02/15/2022 1:52 PM CDT): Continue lipitor Assessment & Plan (02/14/2022 7:43 PM CDT): Continue lipitor Hypertension, essential 08/28/202009/03 Assessment & Plan (08/29/2020 10:45 AM CDT): - Continue home antihypertensives Assessment & Plan (08/28/2020 7:52 PM CDT): - Continue home antihypertensives CAD (coronary artery disease) 08/28/2020 02/22/2023 Assessment & Plan (11/07/2020 4:36 AM CDT): - S/p MELIA to LAD in 2018 - Continue ASA, Plavix, atorvastatin Assessment & Plan (08/29/2020 10:45 AM CDT): - TTE in 09/2018 w/ G3DD. Home metop XL??12.5, losartan 25, lasix 20. - PCI 2018 w/ 1 stent to LAD. ??MPI stress 05/2020 w/ EF 72%, fixed apical defect c/w prior MO. Assessment & Plan (08/28/2020 7:53 PM CDT): - TTE in 09/2018 w/ G3DD. Home metop XL??12.5, losartan 25, lasix 20. - PCI 2018 w/ 1 stent to LAD. ??MPI stress 05/2020 w/ EF 72%, fixed apical defect c/w prior [place]. Essential hypertension 09/13/201910/20 Assessment & Plan (02/16/2022 1:59 PM CDT): Reports no longer taking losartan due to low BPs at home. Continue to hold losartan for now, follow BP. Assessment & Plan (02/15/2022 1:50 PM CDT): Reports no longer taking losartan due to low BPs at home. Continue to hold losartan for now, follow BP. Assessment & Plan (02/14/2022 7:47 PM CDT): Reports no longer taking losartan due to low BPs at home. Continue to hold losartan for now, follow BP. H/O: GI bleed 05/30/2019 01/19/2022 Assessment & Plan (11/07/2020 4:34 AM CDT): - History of GIB with oral AC. Most recently admitted end of September 2020. Underwent EGD per patient. No recent bleeding - No longer on Eliquis - Continue daily PPI and Carafate with meals. Continue iron supplement Encounter for monitoring sotalol therapy 05/03/2017 10/20/2022 Chronic anticoagulation 07/21/201501/03 Overview (09/09/2016): Chronic anticoagulation Immunizations Name Administration Dates Next Due Moderna SARS-CoV-2 Monovalent Vaccination (12+ Y RS) 09/08/2020,07/08/2020 Social History Tobacco Use Types Packs/Day Years Used Date Smoking Tobacco: Never Passive Smoke Exposure: Past Smokeless Tobacco: Never Tobacco Cessation:Counseling Given: Not Answered Alcohol Use Standard Drinks/Week Comments No 0 (1 standard drink = 0.6 oz pur e alcohol) Social Connection and Isolation Panel [NHANES] A nswer Date Recorded In a typical week, how many times do you talk on the phone with family, friends, or neighbors? Three times a week 08/29/2022 How often do you get togethe r with friends or relatives? Three times a week 08/29/2022 How often do you attend [facility] or denominational services? Never 08/29/2022 Do you belong to any clubs o r organizations such as moravian groups, unions, fraternal or athletic groups, or school groups? No 08/29/2022 How often do you attend meet ings of the clubs or organizations you belong to? Never 08/29/2022 Are you , , di vorced, , never , or living with a partner? 08/29/2022 AUDIT-C Answer Date Recorded Q1: How often do you have a drink containing alcohol? Never 10/10/2022 Q2: How many drinks containi ng alcohol do you have on a typical day when you are drinking? Patient does not drink Q3: How often do you have si x or more drinks on one occasion? Never 10/10/2022 Overall Financial Resource Strain (CARDIA) Answe r Date Recorded How hard is it for you to pa y for the very basics like food, housing, medical care, and heating? Not hard at all 08/29/2022 PHQ-2 Answer Date Recorded PHQ-2 Total Score 0 08/29/2022 Hunger Vital Sign Answer Date Recorded Within the past 12 months, y ou worried that your food would run out before you got the money to buy more. Never true 08/30/19 23 Within the past 12 months, t he food you bought just didn't last and you didn't have money to get more. Never true 08/29/2022 PRAPARE - Transportation Answer Date Re corded In the past 12 months, has l ack of transportation kept you from medical appointments or from getting medications? No 08/04 In the past 12 months, has l ack of transportation kept you from meetings, work, or from getting things needed for daily living? No 08/29/2022 Housing Stability Vital Sign Answer Zia e Recorded In the last 12 months, was t here a time when you were not able to pay the mortgage or rent on time? No 08/29/2022 In the last 12 months, how many places have you lived? 1 08/29/2022 In the last 12 months, was t here a time when you did not have a steady place to sleep or slept in a mcc (including now)? No 08/29/2022 Personal Safety Answer Date Recorded Have you ever been in or are you currently in a harmful physical or emotional relationship or is someone making you feel afraid or unsafe? Denies 10/10/2022 Comments No Sex and Gender Information Value Date Recorded Sex Assigned at Not on file Legal Sex Female 2:00 AM POSTAL SERVICE MAIL PROCESSOR Gender Identity Not on file Sexual Orientation Not on file Last Filed Vital Signs Vital Sign Reading Time Taken Comments Blood Pressure 106/64 04/22/2024 11:37 AM POSTAL SERVICE MAIL PROCESSOR Pulse 95 04/22/2024 11:37 AM POSTAL SERVICE MAIL PROCESSOR Temperature 36.7 ??C (98.1 ??F) 04/14/2023 8:56 AM CS T Respiratory Rate 18 06/20/2024 1:50 PM POSTAL SERVICE MAIL PROCESSOR Oxygen Saturation 95% 04/22/2024 11:37 AM POSTAL SERVICE MAIL PROCESSOR Inhaled Oxygen Concentration - - Weight 72.6 kg (160 lb) 06/20/2024 1:50 PM POSTAL SERVICE MAIL PROCESSOR Height 157.5 cm (5' 2 ) 06/20/2024 1:50 PM POSTAL SERVICE MAIL PROCESSOR Body Mass Index 29.26 06/20/2024 1:50 PM POSTAL SERVICE MAIL PROCESSOR Plan of Treatment Not on file Medical Devices Implanted Type Area Performance Manager Device Identifier Shelf Expiration Date Model / Serial / Lot [employer] [id number] System 6-12fr Mvp Venous Closure Vascade - [id number] Implanted:Qt y: 1 on 08/28/2020 by Crow Gramajo MD at [facility] Collagen Left: Femoral [employer] 06/23/2022 [id number] / / [id number] Description:LFV sheath [employer] [id number] System 6-12fr Mvp Venous Closure Vascade - [id number] Implanted:Qt y: 1 on 08/28/2020 by Crow Gramajo MD at [facility] Collagen Right: Femoral [employer] 06/23/2022 [id number] / / [id number] Description:RFV sheath X 1 [employer] Tendril Sts 6fr 52cm Is-1 Connector Active Fixation Bipolar Soft 2088tc/52 - [id number] - [id number] Implanted:Qt y: 1 on 10/10/2022 by Ignacio Obregon MD at [facility] Lead Right: Ventricle [employer] 08/02/2025/52 / [id number] / [employer] Tendril Sts 6fr 46cm Is-1 Connector Bipolar Active Fixation - [id number] - [id number] Implanted:Qt y: 1 on 10/10/2022 by Ignacio Obregon MD at [facility] Lead Right: Atria [employer] 08/02/2025/46 / [id number] / [employer] Joanne [id number] Device Closure Watchman Pebax Nitinol [place] Iridium Pet 24mm L75cm Od12 Fr [id number] Fr 3 Way Stopcock Y Adapter Self Expand Proximal Face Sterile Disposable Left Atrial Appendage - [id number] Implanted:Qt y: 1 on 08/28/2020 by Ignacio Obregon MD at [facility] Other - see comments Left: Heart [employer] Joanne 03/23/2022 [id number] / / [id number] Description:Left atrial appe ndage closure device with delivery system [employer] Assurity Mri [id number] Chamber Is-1 Connector Thk6mm Pacemaker [id number] - [id number] - [id number] Implanted:Qt y: 1 on 10/10/2022 by Ignacio Obregon MD at [facility] Pacemaker Right: Chest Wall [employer] 03/04/2024 [id number] / [id number] / [id number] [employer] X [id number] Resolute [place] 3.5mm 2.1-2.7fr 18mm 140cm Rapid Exchange - [id number] Implanted:Qt y: 1 on 11/26/2018 by Ildefonso Barrios MD PhD at [facility] Stent Med[employer] Inc 09/05/2020 [id number] / / [id number] [employer] Vascade Mvp 6-12fr Venous Closure [id number] - [id number] - [id number] Implanted:Qt y: 1 on 10/10/2022 by Ignacio Obregon MD at [facility] Vascular Closure Device Right: Femoral Vein [employer] 03/15/2024 [id number] / [id number] / [id number] Lens Bilateral: Eye Device Lizzy Watchman Procedure - [id number] Implanted:Qt y: 1 on 08/28/2020 by Ignacio Obregon MD at [facility] [employer] [id number] 1-3 PC / / Procedures Procedure Name Priority Date/Time Associated Diagnosis Comments DEVICE CHECK - REMOTE Routine 05/13/2024 4:00 AM POSTAL SERVICE MAIL PROCESSOR POCT LIPID PANEL Routine 04/22/2024 11:4 3 AM POSTAL SERVICE MAIL PROCESSOR Lipid screening EGFR Routine 10/11/2022 4:40 AM CDT HEMOGLOBIN A1C STAT 08/28/2022 3:07 AM CDT from Last 3 Months or Most Recently Relevant to Health Maintenance Results * DEVICE CHECK - REMOTE (05/13/2024 4:00 AM POSTAL SERVICE MAIL PROCESSOR) Anatomical Region Laterality Modality Other 05/13/2024 4:00 AM POSTAL SERVICE MAIL PROCESSOR Narrative 05/19/2024 1:20 PM POSTAL SERVICE MAIL PROCESSOR Interpretation Summary: Battery and Leads (BL) Normal parameters noted on battery and lead(s) --- 5 to 9 ??years remaining (this is an estimate based on prior usage) Presenting Rhythm (IN) Atrial Fibrillation or Flutter Ventricular Sensing (VS) --- rate 60-100 Arrhythmic events (AE) Longstanding persistent atrial fibrillation and/or flutter --- AT/AF burden: 100%. V rates > 110 bpm: ??18% of the time during AF Anticoagulation ??(AC) Patient is not on anticoagulant therapy Patient is status-post left atrial appendage occlusion device Transmission Information (TI) Device Summary Report Procedure Note Ignacio Obregon MD - 05/19/2024 Interpretation Summary: Battery and Leads (BL) Normal parameters noted on battery and lead(s) --- 5 to 9 years remaining(this is an estimate based on prior usage) Presenting Rhythm (IN) Atrial Fibrillation or Flutter Ventricular Sensing (VS) --- rate 60-100 Arrhythmic events (AE) Longstanding persistent atrial fibrillation and/or flutter --- AT/AFburden: 100%. V rates > 110 bpm: 18% of the time during AF Anticoagulation (AC) Patient is not on anticoagulant therapy Patient is status-post left atrial appendage occlusion device Transmission Information (TI) Device Summary Report us Ignacio Obregon MD CV CARDIAC SERVICES PROCE DURES Final Result * POCT lipid panel (04/22/2024 11:43 AM POSTAL SERVICE MAIL PROCESSOR) Pathologist [facility] Cholesterol, POC 119 mg/dL HDL, POC 35 mg/dL Triglycerides, POC 102 mg/dL LDL Cholesterol POC 64 mg/dL Chol/HDL Ratio, POC 1.9 Non-HDL Cholesterol, POC 85 mg/dL Cholesterol Total, POC 119 mg/dL Capillary blood 04/22/2024 1 1:43 AM POSTAL SERVICE MAIL PROCESSOR us Sindhu Patrick NP POINT OF CARE TEST ORDERA BLES Final Result * (ABNORMAL) eGFR (10/11/2022 4:40 AM CDT) Pathologist [facility] eGFR 41(L) 90 - 130 mL/min/1. 73 m2 LIZZIE GARCIA Comment: Interpretive Data Reference Interval Normal ?>/= 90 mL/min/1.73m2 Mildly decreased* ? 60 - 89 mL/min/1.73m2 Mildly to moderately decreased ?45 - 59 mL/min/1.73m2 Moderately to severely decreased ??30 - 44 mL/min/1.73m2 Severely decreased ?15 - 29 mL/min/1.73m2 Kidney Failure ?< 15 ??mL/min/1.73m2 *Relative to young adult level Estimated glomerular filtration rate is determined by the 2020 CKD-EPI equation recommended by the National Kidney Foundation (A Unifying Approach to GFR Estimation: Recommendations of the NKF-ASK Task Force on Reassessing the Inclusion of Race in Diagnosing Kidney Disease, JASN 202). The CKD-EPI equation should not be used for patients with unstable renal function and has not been validated in children and those over 70. Current interpretive data was last reviewed 2021. Blood 10/11/2022 4:40 AM CDT 10/11/2022 5:02 AM CDT us Andrew Mckeon MD LAB BLOOD ORDERABLES Final R esult Performing Organization Address [facility] de Phone Number [facility] [employer] [place] [address] * (ABNORMAL) Hemoglobin A1c (08/28/2022 3:07 AM CDT) Hgb A1C 6.1(H) 4.0 - 5.6 % [facility] Estimated Average Glucose 128 mg/dL [facility] Comment: The ADA recommends reporting an estimated Average Glucose (eAG) with all Hemoglobin A1c results using the equation derived from a study of 507 normal and diabetic adults. ??Minority populations were underrepresented and children were not included. ?? (Diabetes Care 2020; 43(S1): S66-S76). ??The eAG is not equivalent to a fasting glucose. Blood 08/28/2022 3:07 AM CDT 08/28/2022 4:30 AM CDT us Era Byrd MD LAB BLOOD ORDERABLES Final Re sult Performing Organization Address [facility] Co de Phone Number [facility] [place] [address] from Last 3 Months or Most Recently Relevant to Health Maintenance Insurance [facility]ICARE [facility]IC[facility]ICARE [facility] MEDICARE MEDICARE MEDICARE [facility] Advance Directives For more information, please contact: [phone] * Full Code (Latest Code Status on File) Date Activated Date Inactivated Comments 10/10/2022 5:18 PM 10/11/2022 4:53 PM * Full Code Date Activated Date Inactivated Comments 08/28/2022 1:52 AM 09/01/2022 8:31 PM * Full Code Date Activated Date Inactivated Comments 08/01/2022 6:11 PM 08/06/2022 10:40 PM * Full Code Date Activated Date Inactivated Comments 02/14/2022 7:30 PM 02/17/2022 7:14 PM * Full Code Date Activated Date Inactivated Comments 11/07/2020 4:14 AM 11/07/2020 6:56 PM Care Teams Yarn Polishing Machine Operator Relationship Specialty Start Date End Date Nicole Sierra NP [address] [place] [address] PCP - General Nurse Practitioner 07/20/23 Pinky Louise MD Consulting Physician Gastroenterology 10/02/18 Mackenzie Tobin NP [address] [place] [address] Nurse Practitioner Medical Oncology 02/09/22 [place] [address] [place] [address] Consulting Physician Urology 08/06/22 [place] [address] [place] [address] Consulting Physician Cardiology 08/06/22
--- OUTSIDE RECORDS SUMMARY | 2024-07-01 14:45 | XMS_ITS | Continuity of Care Document ---
Author Organization [facility] Address [address] [place] [address] [address] [place] [address] Phone Care Team Providers Care Payable Representative Name Role Phone Angel OD, Jr Unavailable Unavailable Procedures Procedure Date Office/outpatient Visit, Est Eye Exam, New Patient Advance Directives Directive Yes / No Effective Date File Name No Information Encounters Encounter Description Practice Location Reason(s) For Visit Diagnoses Date Provider Providers Copied on Encounter Office/outpat ient Visit, Est [facility], [address], [place], [place], [id number], tel:[phone] [facility] No Information Sep-2 5-200 8 Angel OD Jr. [address], [place], [place], [facility] [place], [place]. tel:[phone] [facility], [address] [place] [address] [address], [place], [place], [id number], tel:[phone] [facility] No Information Sep-1 8-200 8 Angel OD Jr. [address] , [address], [place], [address], [place]. tel:[phone] Family History Family Member Type Diagnosis Age At Onset No Information Payers Payer name Insurance type Covered democrat ID Authoriza tion(s) No Information Social History Type Description Quantity Date Captured Comments Sex Female Smoking Status No Information Chief Complaint And Reason For Visit No Information Reason For Referral Reason For Referral No Information History Of Present Illness Encounter Date Complaint History Of Prese nt Illness No Information Functional Status Date Functional Assessmen t No Information Instructions Date Instruction Additional Infor mation No Information Assessments Type Assessment Date No Information Patient Care Teams Name Effective Dates (start - stop) Status Members No Information
--- OUTSIDE RECORDS SUMMARY | 2024-07-01 14:45 | XMS_ITS ---
Author Organization [facility] [address] Address [address] [place] [address] Care Team Providers Care Kiln Tender Name Role Phone Pinky Louise MD Unavailable [phone] Mackenzie Tobin NP Unavailable [phone] Loki Viramontes MD Unavailable [phone] Frank Moses MD Unavailable [phone] Nicole Sierra NP Primary Care Provider [phone] Active Problems Problem Noted Date Diagnosed Date Sensorineural hearing loss (SNHL) of both ears 0 06/20/2024 Dizziness and giddiness 06/20/2024 S/P placement of cardiac pacemaker 10/20/2022 Assessment & Plan (01/09/2024 4:12 PM CDT): 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 as programmed Lead impedances, sensing, and thresholds are stable No programming changes Continue remote monitoring quarterly Atrial fibrillation ([facility]/HCC) 10/11/2022 Sinus node dysfunction (CMS/HCC) 10/10/2022 Assessment & Plan (10/10/2022 7:50 PM CDT): As per above. Chronic kidney disease (CKD), stage IV (severe) (CMS/HCC) 10/10/2022 Assessment & Plan (10/11/2022 11:48 AM CDT): Stable on AM BMP -Avoid renal toxins, renally dose meds DM2 (diabetes mellitus, type 2) 10/10/2022 Assessment & Plan (10/11/2022 11:48 AM CDT): -Continue Jardiance. -Hold her ryvasilesus -SSI Acute on chronic congestive heart failure, unspecified heart failure type 08/27/2022 Renal mass 06/27/2022 Overview (06/27/2022): Added automatically from request for surgery [id number] A-fib (CMS/[facility]) 02/14/2022 Assessment & Plan (10/11/2022 11:47 AM [...] (07/11/2019): Added automatically from request for surgery [id number] Coronary artery disease invo lving telida coronary artery of telida heart without angina pectoris 11/19/2018 Angina pectoris, unstable ([facility]) 11/07/2018 Overview (11/07/2018): Added automatically from request for surgery [id number] GI bleed 08/06/2018 Assessment & Plan (08/29/2020 [...] a associated with type 2 diabetes mellitus ([facility]) 07/21/2015 Overview (09/09/2016): Type 2 diabetes mellitus [...] Abnormal stress test Longstanding persistent atrial fibrillation ([facility] /[facility]) 11/13/2013 Overview (09/09/2016): Paroxysmal atrial fibrillation Assessment [...] BB - Monitor on telemetry Postprocedural hypotension Current Oncology Plans No current plan information found. Past Plans No past plan information found. Radiation Treatments * No radiation treatments are documented for this patient in [facility]. Treatments may have been administered in another system. Lifetime Dose Tracking * Chemical Lifetime Dose Automatic Entry Manual Entr y Air kerma at the reference point (Ka,r) 2,888 mGy 0 mGy 2,888 mGy DLP 5,100 mGycm 5,100 mGycm 0 mGycm Resolved Problems Problem Noted Date Diagnosed Date [...] 7:43 PM CDT): Continue lipitor Hypertension, essential 08/28/2020 04/1 10/2021 Assessment & Plan (08/29/2020 10:45 AM CDT): [...] EF 72%, fixed apical defect c/w prior ID. Assessment & Plan (08/28/2020 7:53 PM CDT): - TTE in 09/2018 w/ G3DD. Home metop XL??12.5, losartan 25, lasix 20. - PCI 2019 w/ 1 stent to LAD. ??MPI stress 05/2020 w/ EF 72%, fixed apical defect c/w prior ID. Essential hypertension 09/13/201910/20 Assessment & Plan (02/16/2022 [...]
--- OUTSIDE RECORDS SUMMARY | 2024-07-01 14:45 | XMS_ITS | Clinical Summary ---
Author Organization [facility] [address] Address [address] [place] [address] Care Team Providers Care Senior Training And Development Rep Name Role Phone Pinky Louise MD Unavailable [phone] Mackenzie Tobin NP Unavailable [phone] Loki Viramontes MD Unavailable [phone] Frank Moses MD Unavailable [phone] Nicole Sierra NP Primary Care Provider [phone] Allergies Active Allergy Reactions Criticality Noted Date [...] 1 tablet (3 mg total) by mouth form presser before breakfast Active aspirin 325 mg tabletIndicati [...] changes Continue remote monitoring quarterly Atrial fibrillation (CMS/HCC) 10/11/2022 Sinus node dysfunction (CMS/HCC) 10/10/2022 Assessment & Plan (10/10/2022 7:50 PM CDT): As per above. Chronic kidney disease (CKD), stage IV (severe) ([facility]) 10/10/2022 Assessment & Plan (10/11/2022 11:48 AM CDT): Stable on AM BMP -Avoid renal toxins, renally dose meds DM2 (diabetes mellitus, type 2) 10/10/2022 Assessment & Plan (10/11/2022 11:48 AM CDT): -Continue Jardiance. -Hold her rybelsus -SSI Acute on chronic congestive heart failure, unspecified heart failure type 08/27/2022 Renal mass 06/27/2022 Overview (06/27/2022): Added automatically from request for surgery [id number] A-fib ([facility]) 02/14/2022 Assessment & Plan (10/11/2022 [...] (07/11/2019): Added automatically from request for surgery [id number] Coronary artery disease invo lving chipewwa coronary artery of chipewwa heart without angina pectoris 11/19/2018 Angina pectoris, unstable ([facility]/HCC) 11/07/2018 Overview (11/07/2018): Added automatically from request for surgery [id number] GI bleed 08/06/2018 Assessment & Plan (08/29/2020 [...] left breast in female, estrogen receptor positive ([facility]) 07/21/2015 Overview (09/09/2016): Malignant neoplasm of female [...] a associated with type 2 diabetes mellitus ([facility]) 07/21/2015 Overview (09/09/2016): Type 2 [...] Abnormal stress test Longstanding persistent atrial fibrillation ([facility]) 11/13/2013 Overview (09/09/2016): Paroxysmal atrial [...] PM CDT): Continue lipitor Hypertension, essential 08/28/2020 04/10/2021 Assessment & Plan (08/29/2020 10:45 AM CDT): [...] EF 72%, fixed apical defect c/w prior CO. Assessment & Plan (08/28/2020 7:53 PM CDT): - TTE in 09/2018 w/ G3DD. Home metop XL??12.5, losartan 25, lasix 20. - PCI 2018 w/ 1 stent to LAD. ??MPI stress 05/2020 w/ EF 72%, fixed apical defect c/w prior CO. Essential hypertension 09/13/201910/20 Assessment & Plan (02/16/2022 [...] Chronic anticoagulation 07/21/201501/03 Overview (09/09/2016): Chronic anticoagulation Encounters Date Type Department Care Team Description 06/20/2024 2:00 PM NURSING SCHEDULER Office Visit [facility] Otolaryngology [address] [place] [phone] Mehul Martinez II, MD Sensorineural hearing loss (SNHL) of both ears (Primary Dx); Dizziness and giddiness 06/20/2024 1:45 PM NURSING SCHEDULER Procedure visit [facility] Otolaryngology [address] [place] [phone] Deanna Galvez Dizziness and giddiness (Primary Dx); Sensorineural hearing loss (SNHL) of both ears; Tinnitus of both ears 05/13/2024 Orders Only [facility] Cardiology [address] [place] [address] [place] [address] Ignacio Obregon MD 05/01/2024 Telephone [facility] Cardiology [address] [place] [address] [address] [place] [phone] Sidnhu Patrick NP Med Management 04/22/2024 11:30 AM NURSING SCHEDULER Office Visit [address] [place] [phone] Sindhu Patrick NP Longstanding persistent atrial fibrillation (CMS/HCC) (HCC); S/P placement of cardiac pacemaker; Presence of Watchman left atrial appendage closure device; Coronary artery disease involving chipewwa coronary artery of chipewwa heart without angina pectoris; Lipid screening; Takotsubo cardiomyopathy 04/22/2024 Telephone [facility] Cardiology [address] [place] [address] [address] [place] [phone] Sindhu Patrick NP 04/03/[address] [place] [phone] Maria Isabel Cesar MD from Last 3 Months Immunizations Name Administration Dates Next Due Moderna SARS-CoV-2 Monovalent Vaccination (12+ Y RS) 09/08/2020,07/08/2020 Surgical History Surgery Date Site/Laterality Comments MASTECTOMY, PARTIAL 10/04/2011 - 11/03/2011 Left CATARACT EXTRACTION Bilateral FINGER SURGERY Left cyst CHOLECYSTECTOMY 06/05/1987 - 06/04/1988 BREAST BIOPSY COLONOSCOPY ESOPHAGOSCOPY / EGD 06/05/2018 - 06/04/2019 multiple gstric polyps VAGINAL DELIVERY x 4 CARDIAC ELECTROPHYSIOLOGY MAPPING AND ABLATION 08/28/2020 Radiofrequency ablation/PVI for A Fib, Watchman CARDIAC STENT PLACEMENT 11/26/2018 MELIA to pLAD LAPAROSCOPIC NEPHRECTOMY 08/01/2022 Right Medical History Medical History Date Comments Cerebrovascular accident (CVA) (HCC) Stroke Hx Other Medical Arrhythmias Hx Other Medical Coronary Artery Disease (probable; abnormal stress Hypertension Hypertension Hx Other Medical Diabetes Type I I Hx Other Medical Breast Cancer ( Chemo Tx) Malignant neoplasm of upper- outer quadrant of left breast in female, estrogen receptor positive (HCC) 07/21/2015 Malignant neoplasm of female breast, unspecified laterality, unspecified site of breast Atrial fibrillation (CMS/HCC) (HCC) Diabetes mellitus (HCC) Hyperlipidemia TIA (transient ischemic attack) Diabetes (HCC) History of chemotherapy Left Tiffanie ast Cancer 2012 History of radiation therapy lef t breast cancer 2013 Coronary artery disease Motion sickness Cirrhosis of liver (HCC) History of kidney cancer Cataract Family History Medical History Relation Name Comments Arrhythmia Brother Atrial fibrillation Brother Coronary artery disease Brother Heart attack Brother s/p stent Hypertension Brother Stroke Brother Other Father drowned; Cause of : drowned Coronary artery disease Mother Mitra nary Artery Disease; Cause of : Coronary Artery Disease Deep vein thrombosis Mother Heart attack Mother Hypertension Mother Stroke Mother Cancer Sister 1 Coronary artery disease Sister 1 Heart disease Sister 1 Sudden Cardiac Sister 1 Ovarian cancer Sister 2 Heart disease Sister 3 s/p stents Hypertension Son Relation Name Status Comments Brother Alive Father (Age 67) Mother (Age 70) Sister 1 Sister 2 Sister 3 Alive Son Alive Social History Tobacco Use Types Packs/Day Years [...] week 08/29/2022 How often do you attend chur ch or synagogue services? Never 08/29/2022 Do you belong to any clubs o r organizations such as anglican groups, unions, fraternal or athletic groups, or [...] place to sleep or slept in a retirement (including now)? No 08/29/2022 Personal Safety Answer Date Recorded Have you ever been in or are you currently in a harmful physical or emotional relationship or is someone making you feel afraid or unsafe? Denies 10/10/2022 Comments No Sex and Gender Information Value Date Recorded Sex Assigned at Not on file Legal Sex Female 2:00 AM NURSING SCHEDULER Gender Identity Not on file Sexual Orientation Not on file Obstetrics History Last Filed Vital Signs Vital Sign Reading Time Taken Comments Blood Pressure 106/64 04/22/2024 11:37 AM NURSING SCHEDULER Pulse 95 04/22/2024 11:37 AM NURSING SCHEDULER Temperature 36.7 ??C (98.1 ??F) 04/14/2023 8:56 AM CS T Respiratory Rate 18 06/20/2024 1:50 PM NURSING SCHEDULER Oxygen Saturation 95% 04/22/2024 11:37 AM NURSING SCHEDULER Inhaled Oxygen Concentration - - Weight 72.6 kg (160 lb) 06/20/2024 1:50 PM NURSING SCHEDULER Height 157.5 cm (5' 2 ) 06/20/2024 1:50 PM NURSING SCHEDULER Body Mass Index 29.26 06/20/2024 1:50 PM NURSING SCHEDULER Plan of Treatment Health Maintenance Due Date Last Done Comments Albumin Creatinine Ratio, Urine 1945 Hepatitis C Screening 1945 Osteoporosis Screening-Bone Density Scan 1945 Dilated Eye Exam 1945 Foot Exam 1945 Pneumococcal vaccine 65+ (1 of 2 - PCV) 01/29/1952 DTaP/Tdap/Td Vaccine (1 - Tdap) 1957 Zoster Vaccine (1 of 2) 01/29/1996 Well Visit 65+ 2011 Hemoglobin A1C 02/28/2023 08/28/2022, 07/07, 02/14/2022 Depression Screening 08/28/2023 08/27/2022 Fall Risk Assessment 10/11/2023 10/10/2022 eGFR 10/12/2023 10/11/2022, 05/0 08/2022, 08/31/2022, Additional history exists Covid-19 Vaccine (2023-2 5 season) 2024 09/08/2020, 07/08/2020 Influenza Vaccine (#1) 2024 Lipid Panel 04/22/2025 04/22/2024, 02/04, 02/15/2022, Additional history exists Medical Devices Implanted Type Area Hydro Sprayer Operator Device Identifier Shelf Expiration Date Model / Serial / Lot [employer] [id number] System 6-12fr Mvp Venous Closure Vascade - [id number] Implanted:Qt y: 1 on 08/28/2020 by Crow Gramajo MD at [facility] Collagen Left: Femoral [employer] 06/23/2022 [id number] / / [id number] Description:LFV sheath [employer] [id number] System 6-12fr Mvp Venous Closure Vascade - [id number] Implanted:Qt y: 1 on 08/28/2020 by Crow Gramajo MD at [facility] Collagen Right: Femoral [employer] 06/23/2022 [id number] / / [id number] Description:RFV sheath X 1 [employer] Tendril Sts 6fr 52cm Is-1 Connector Active Fixation Bipolar Soft /52 - [id number] - [id number] Implanted:Qt y: 1 on 10/10/2022 by Ignacio Obregon MD at [facility] Lead Right: Ventricle [employer] 08/02/2025 [id number]/52 / [id number] / [employer] Tendril Sts 6fr 46cm Is-1 Connector Bipolar Active Fixation /46 - [id number] - [id number] Implanted:Qt y: 1 on 10/10/2022 by Ignacio Obregon MD at [facility] Lead Right: Atria [employer] 08/02/20252087TC/46 / [id number] / [employer] Joanne [id number] Device Closure Watchman Pebax Nitinol [place] Iridium Pet 24mm L75cm Od12 Fr [id number] Fr [address] Stopcock Y Adapter Self Expand Proximal Face Sterile Disposable Left Atrial Appendage - [id number] Implanted:Qt y: 1 on 08/28/2020 by Ignacio Obregon MD at [facility] Other - see comments Left: Heart [employer] Joanne 03/23/2022 [id number] / / [id number] Description:Left atrial appe ndage closure device with delivery system [employer] Assurity Mri [id number] 2 Chamber Is-1 Connector Thk6mm Pacemaker [id number] - [id number] - [id number] Implanted:Qt y: 1 on 10/10/2022 by Ignacio Obregon MD at [facility] Pacemaker Right: Chest Wall [employer] 03/04/2024 [id number] / [id number] / [id number] Med[employer] X [id number] Resolute [place] 3.5mm 2.1-2.7fr 18mm 140cm Rapid Exchange - [id number] Implanted:Qt y: 1 on 11/26/2018 by Ildefonso Barrios MD PhD at [facility] Stent Medtronic Inc 09/05/2020 [id number] / / [id number] [employer] Vascade Mvp 6-12fr Venous Closure [id number] - [id number] - [id number] Implanted:Qt y: 1 on 10/10/2022 by Ignacio Obregon MD at [facility] Vascular Closure Device Right: Femoral Vein [employer] 03/15/2024 [id number] / [id number] / [id number] Lens Bilateral: Eye Device Lizzy Watchman Procedure - [id number] Implanted:Qt y: 1 on 08/28/2020 by Ignacio Obregon MD at [facility] Jumpido [id number] 1-3 PC / / Procedures Procedure Name Priority Date/Time Associated Diagnosis Comments DEVICE CHECK - REMOTE Routine 05/13/2024 4:00 AM NURSING SCHEDULER POCT LIPID PANEL Routine 04/22/2024 11:4 3 AM NURSING SCHEDULER Lipid screening EGFR Routine 10/11/2022 4:40 AM CDT HEMOGLOBIN A1C STAT 08/28/2022 3:07 AM CDT from Last 3 Months or Most Recently Relevant to Health Maintenance Results * DEVICE CHECK - REMOTE (05/13/2024 4:00 AM NURSING SCHEDULER) Anatomical Region Laterality Modality Other 05/13/2024 4:00 AM NURSING SCHEDULER Narrative 05/19/2024 1:20 PM NURSING SCHEDULER Interpretation Summary: Battery and Leads (BL) Normal parameters noted on battery and lead(s) --- 5 to 9 ??years remaining (this is an estimate based on prior usage) Presenting Rhythm (ID) Atrial Fibrillation or Flutter Ventricular Sensing (VS) [...] estimate based on prior usage) Presenting Rhythm (ID) Atrial Fibrillation or Flutter Ventricular Sensing (VS) --- rate 60-100 Arrhythmic events (AE) Longstanding persistent atrial fibrillation and/or flutter --- AT/AFburden: 100%. V rates > 110 bpm: 18% of the time during AF Anticoagulation (AC) Patient is not on anticoagulant therapy Patient is status-post left atrial appendage occlusion device Transmission Information (TI) Device Summary Report Ignacio Obregon MD [facility] Final Result * POCT lipid panel (04/22/2024 11:43 AM NURSING SCHEDULER) Cholesterol, POC 119 mg/dL HDL, POC 35 mg/dL Triglycerides, POC 102 mg/dL LDL Cholesterol POC 64 mg/dL Chol/HDL Ratio, POC 1.9 Non-HDL Cholesterol, POC 85 mg/dL Cholesterol Total, POC 119 mg/dL Capillary blood 04/22/2024 1 1:43 AM NURSING SCHEDULER Sindhu Patrick NP POINT OF CARE TEST ORDERA BLES Final Result * (ABNORMAL) eGFR (10/11/2022 4:40 AM CDT) eGFR 41(L) 90 - 130 mL/min/1. 73 m2 [facility]NOTE 3[facility] Comment: Interpretive Data Reference Interval Normal ?>/= [...] of Race in Diagnosing Kidney Disease, JASN 2020). The CKD-EPI equation should not be used for patients with unstable renal function and has not been validated in children and those over 70. Current interpretive data was last reviewed 2021. Blood 10/11/2022 4:40 AM CDT 10/11/2022 5:02 AM CDT us Andrew Mckeon MD LAB BLOOD ORDERABLES Final R esult [facility] [place] [address] * (ABNORMAL) Hemoglobin A1c (08/28/2022 3:07 AM CDT) [facility] Hgb A1C 6.1(H) 4.0 - 5.6 % [facility]NOTE 3] Estimated Average Glucose 128 mg/dL [facility] Comment: The ADA recommends reporting an estimated Average Glucose (eAG) with all Hemoglobin A1c results using the equation derived from a study of 507 normal and diabetic adults. ??Minority populations were underrepresented and children were not included. ?? (Diabetes Care 2020; 43(S1): S66-S76). ??The eAG is not equivalent to a fasting glucose. Blood 08/28/2022 3:07 AM CDT 08/28/2022 4:30 AM CDT Era Byrd MD LAB BLOOD ORDERABLES Final Re sult [facility] [place] [address] from Last 3 Months or Most Recently Relevant to Health Maintenance Insurance MEDICARE [facility] MEDICARE [facility] MEDICARE [facility] MEDICARE MEDICARE MEDICARE [facility] Advance Directives For more information, please contact: [phone] * Full Code (Latest Code Status on [...] 4:14 AM 11/07/2020 6:56 PM Care Teams Senior Training And Development Rep Relationship Specialty Start Date End Date Nicole Sierra NP [address] [place] [address] PCP - General Nurse Practitioner 07/20/23 Pinky Louise MD Consulting Physician Gastroenterology 10/02/18 Mackenzie Tobin NP [facility] [address] Nurse Practitioner Medical Oncology 02/09/22 [place] [address] [place] [address] Consulting Physician Urology 08/06/22 [place] [address] [place], [place] [id number] Consulting Physician Cardiology 08/06/22
--- OUTSIDE RECORDS SUMMARY | 2024-07-01 14:46 | XMS_ITS | Referral Summary ---
Author Organization [facility] Address [address] [place] [address] Care Team Providers Care Supervisor Tank Cleaning Name Role Phone Marie Matias MD Unavailable Source Comments [facility],non-owned Affiliates and Associated Physician Practices is amultiple site organization consisting of ambulatory clinics and hospital sitesin [place], [place], [place] and [place]. This disclosure is being madepursuant to the Care Everywhere program and may not contain all information available regarding this patient. Last updated 18.[facility] Encounters Date Type Department Care Team Description 04/22/2024 Telephone [facility] - Nephrology [address] [place] [phone] Lazaro Gonzales MD Medication Problem 04/22/2024 Telephone [facility] - Nephrology [address] [place] [phone] Lazaro Gonzales MD Opened In Error 04/09/2024 1:53 PM QUILL REAMER - 04/09/2024 11:59 PM QUILL REAMER Hospital Encounter [facility]RAW [facility] [address] [place] [phone] Lazaro Gonzales MD Discharge Disposition: Home or Self Care 04/09/2024 Travel 04/09/2024 1:00 PM QUILL REAMER Office Visit [facility] - GI [address] [place] [phone] Lazaro Gonzales MD Abnormal finding on imaging of liver (Primary Dx); Hepatic fibrosis; Thrombocytopenia (HCC); Metabolic dysfunction-associa tavo steatotic liver disease (MASLD) 04/09/2024 10:22 AM QUILL REAMER - 04/09/2024 1:52 PM QUILL REAMER Hospital Encounter [place] [id number] [place] [phone] Lazaro Gonzales MD Discharge Disposition: Home or Self Care from Last 3 Months Allergies No known active allergies Medications * Be aware that medications may not be up to date on this document. Alwaysverify current medications with the patient. Medication Sig Dispensed Refills Start Date End Date Status Multiple Vitamins-Minerals (CENTRUM SILVER PO) Take 1 Tab by mouth once daily. Active calcium polycarbophil (FIBERCON) 625 MG tablet Take by mouth 2 times daily. Active Ascorbic Acid (VITAMIN C) 100 MG CHEW Take 1 Tab by mouth once daily. Active [place]-3 Fatty Acids 1200 MG CAPS Take 1 Cap by mouth once daily. Active Coenzyme Q10 (CO Q 10 PO) Take 1 Tab by mouth once daily. Active aspirin (Aspirin) 325 MG tablet Take 1 (one) tablet by mouth once daily Active atorvastatin (Lipitor) 40 MG tablet Take 1 (one) tablet by mouth at bedtime Active furosemide (Lasix) 20 MG tablet Take 1 (one) tablet by mouth 2 times daily Active pantoprazole EC (Protonix) 40 MG tablet Take 1 (one) tablet by mouth once daily Active semaglutide (Rybelsus) 3 MG tablet Take 3 mg by mouth once daily Active ferrous sulfate 325 (65 FE) MG tablet Take 1 (one) tablet by mouth 2 times daily With meals 05/06/2022 Active empagliflozin (Jardiance) 10 MG tablet Take 1 (one) tablet by mouth once daily 05/06/2022 Active Lactobacillus (probiotic acidophilus) capsule Take 1 (one) capsule by mouth once daily 05/06/2022 Active metoprolol succinate XL 24hr (Toprol XL) 50 MG tablet Take 1.5 (one and one-half) tablets by mouth at bedtime 04/11/2022 Active Active Problems Problem Noted Date Diagnosed Date Liver cirrhosis secondary to [facility] 09/21/2023 Overview (09/21/2023): Based on risk factors and imaging 09/19/23 Fibroscan CAP 225, LSM 28.3 kPa S/P placement of cardiac pacemaker 10/20/2022 09/21/2023 Chronic kidney disease (CKD), stage IV (severe) 10/10/2022 09/21/2023 Overview (09/21/2023): Last Assessment & Plan: Stable on AM BMP -Avoid renal toxins, renally dose meds Atrial fibrillation 02/14/2022 09/21/2023 Overview (09/21/2023): Last Assessment & Plan: Formal electrophysiology study report pending, though reported PPM placement (?lead issue) with deferment of AVN ablation and plan for follow-up procedure in several weeks. She is status post a Watchman procedure in the past given significant bleeding on anticoagulation. -s/p f/up CXR -Discussed with EP; ok for discharge with increased dose home metoprolol 50- >75mg QHS and 3 days keflex prophylaxis QT prolongation 03/10/2021 09/21/2023 Chronic heart failure with preserved ejection fr action 11/07/2020 09/21/2023 Overview (09/21/2023): Last Assessment & Plan: Patient appears euvolemic. -Continue her home furosemide. History of breast cancer 10/23/2020 024 Presence of Watchman left atrial appendage closu re device 09/25/2020 09/21/2023 DM2 (diabetes mellitus, type 2) 08/28/2020 09/21/2023 Overview (09/21/2023): Last Assessment & Plan: Takes metformin, semaglutide at home - Continue metformin. Hold semaglutide - SSI + accuchecks while inpatient - HgbA1C 5.9 Last Assessment & Plan: -Continue Jardiance. -Hold her rybelsus -SSI Coronary artery disease invo lving qagan tayagungin coronary artery of qagan tayagungin heart without angina pectoris 11/19/2018 09/21/2023 Angina pectoris, unstable 11/07/20182023 Overview (09/21/2023): Added automatically from request for surgery [id number] H/O TIA (transient ischemic attack) and stroke 1 07/03/2016 09/21/2023 Iron deficiency anemia 04/20/2016 Overview (09/21/2023): Iron deficiency anemia, unspecified iron deficiency anemia type Mixed diabetic hyperlipidemi a associated with type 2 diabetes mellitus 07/21/2015 09/21/2023 Overview (09/21/2023): Type 2 diabetes mellitus with complication Last Assessment & Plan: Continue statin Unknown and unspecified causes of morbidity 07/0609/21/2023 Overview (09/21/2023): Hx TIA/stroke w/o resid Longstanding persistent atrial fibrillation 11/0309/21/2023 Overview (09/21/2023): Paroxysmal atrial fibrillation Last Assessment & Plan: - History of paroxysmal atrial fibrillation with [...] and metoprolol - Monitor overnight. Symptoms resolved. Pain in joint, shoulder region 06/27/2013 Immunizations Name Administration Dates Next Due HEP A/HEP B 04/09/2024 Social History Tobacco Use Types Packs/Day Years Used Date Smoking Tobacco: Never Smokeless Tobacco: Never Tobacco Cessation:Counseling Given: Not Answered Alcohol Use Standard Drinks/Week Comments No 0 (1 standard drink = 0.6 oz pur e alcohol) Sex and Gender Information Value Date Recorded Sex Assigned at Not on file Gender Identity Not on file Sexual Orientation Not on file Last Filed Vital Signs Vital Sign Reading Time Taken Comments Blood Pressure 126/86 04/09/2024 12:40 PM QUILL REAMER Pulse 98 04/09/2024 12:40 PM QUILL REAMER Temperature 36.6 ??C (97.8 ??F) 08/06/2014 11:[address] Respiratory Rate 10 03/07/2022 7:51 AM CDT Oxygen Saturation 97% 04/09/2024 12:40 PM QUILL REAMER Inhaled Oxygen Concentration - - Weight 72.7 kg (160 lb 3.2 oz) 04/09/2024 12:40 PM QUILL REAMER Height 157.5 cm (5' 2 ) 04/09/2024 12:40 PM QUILL REAMER Body Mass Index 29.3 04/09/2024 12:40 PM QUILL REAMER Functional Status Functional Status Response Date of [...] person have difficulty concentrating/remembering/making decisions? No 08/06/2014 Plan of Treatment Upcoming Encounters Date Type Department Care Team (Late st Contact Info) Description 10/08/2024 11:00 AM CDT Appointment [facility] [address] [place] [phone] Lazaro Gonzales MD [address] [place] [phone] 10/08/2024 1:00 PM CDT Office Visit [facility] - [address], [place] [phone] Lazaro Gonzales MD [address] [place] [address], [place] [phone] Goals Goal Patient Goal Type Associated Problems Recent Progress Patient-Stated? Author Medication Management General No Lizzie Valente, RN Note: Expected end date: ongoing Interventions: Take all medications as prescribed Procedures Procedure Name Priority Date/Time Associated Diagnosis Comments ALPHA FETOPROTEIN BLOOD TUMOR MARKER Routine 04/09/2024 2:07 PM QUILL REAMER Other cirrhosis of liver (HCC) BILIRUBIN DIRECT Routine 04/09/2024 2:07 PM QUILL REAMER Other cirrhosis of liver (HCC) PT-INR [facility] Routine 04/09/2024 2:07 PM QUILL REAMER Other cirrhosis of liver (HCC) COMPREHENSIVE METABOLIC PANEL Routine 04/09/2024 2:07 PM QUILL REAMER Other cirrhosis of liver (HCC) CBC W AUTO DIFFERENTIAL Routine 04/09/2024 2:07 PM QUILL REAMER Other cirrhosis of liver (HCC) US ABDOMEN LIMITED Routine 04/09/2024 11 :00 AM QUILL REAMER Other cirrhosis of liver (HCC) HEPATITIS C ANTIBODY Routine 09/19/2023 3:44 PM CDT Hepatic fibrosis HEMOGLOBIN A1C Routine 03/30/2015 12:13 PM CDT Diabetes mellitus type II, controlled, with no complications (HCC) MICROALBUMIN URINE RANDOM Routine 03/12/2014 11:04 AM CDT Type Ii Or Unspecified Type Diabetes Mellitus Without Mention Of Complication, Not Stated As Uncontrolled (Hcc) Fatigue Hypertension from Last 3 Months or Most Recently Relevant to Health Maintenance Results * PT-INR [facility] (04/09/2024 2:07 PM QUILL REAMER) PT 14.6 12.1 - 14.8 Seconds 04/09/2024 3:29 PM QUILL REAMER [facility] INR 1.2 See Comment 04/09/2024 3:29 PM QUILL REAMER [facility] Comment:The suggested therap eutic range for standard coumadin (warfarin) therapy is an INR of 2.0-3.0. For high-risk patients (Mechanical Mitral Valve Prosthesis, etc.), the suggested prophylactic therapeutic range is an INR of 2.5-3.5. Blood BLOOD SPECIMEN / Unknown Lab Venipuncture / Unknown 04/09/2024 2:07 PM QUILL REAMER 04/09/2024 2:54 PM QUILL REAMER Lazaro Gonzales MD LAB - COAGULATION OR DERABLES Performing Organization Address [facility]/ZIP Co de Phone Number [address] [phone], [facility] [phone] * ALPHA FETOPROTEIN BLOOD TUMOR MARKER (04/09/2024 2:07 PM QUILL REAMER) [facility] Alpha-Fetoprote in Tumor Marker 3.3 <=8.3 ng/mL 04/09/2024 3:51 PM [facility] Comment: AFP values will vary depending on testing procedure used. Results are not comparable across different methods. AFP values obtained by [facility] using an Bumpr Alinity Immunoassay. Blood BLOOD SPECIMEN / Unknown Lab Venipuncture / Unknown 04/09/2024 2:07 PM QUILL REAMER 04/09/2024 3:00 PM QUILL REAMER Lazaro Gonzales MD LAB - CHEMISTRY ORDE RABLES Performing Organization Address City/[facility]/ZIP Co de Phone Number [address] [phone], [facility] [phone] * (ABNORMAL) CBC WITH DIFFERENTIAL (04/09/2024 2:07 PM QUILL REAMER) [facility] WBC 9.2 4.0 - 10.7 x10E9/L 04/09/2024 3:18 PM [facility] RBC Count 4.55 3.90 - 5.20 x10E12/L 04/09/2024 3:18 PM [facility] Hemoglobin 12.6 11.9 - 15.8 g/dL 04/09/2024 3:18 PM [facility] Hematocrit 39.9 34.8 - 46.1 % 04/09/2024 3:18 PM [facility] MCV 87.7 80.0 - 98.0 fL 04/09/2024 3:18 PM [facility] MCH 27.7 26.7 - 33.6 pg 04/09/2024 3:18 PM [facility] MCHC 31.6(L) 31.7 - 36.3 g/dL 04/09/2024 3:18 PM [facility] RDW-CV 13.4 11.3 - 14.8 % 04/09/2024 3:18 PM [facility] Platelet Count 103(L) 150 - 420 x10E9/L 04/09/2024 3:18 PM [facility] MPV 04/09/2024 3:18 PM [facility] Comment:Unable to report Neutrophil % 80.8(H) 41.0 - 74.0 % 04/09/2024 3:18 PM [facility] Lymphocyte % 13.0(L) 17.0 - 47.0 % 04/09/2024 3:18 PM [facility] Monocyte % 5.3 3.0 - 11.0 % 04/09/2024 3:18 PM [facility] Eosinophil % 0.4 0.0 - 7.0 % 04/09/2024 3:18 PM [facility] Basophil % 0.3 0.0 - 1.6 % 04/09/2024 3:18 PM [facility] Immature Granulocytes % 0.2 0.0 - 1.0 % 04/09/2024 3:18 PM [facility] Neutrophil Absolute 7.40 1.60 - 7.50 x10E9/L 04/09/2024 3:18 PM [facility] Lymphocyte Absolute 1.19 1.00 - 4.40 x10E9/L 04/09/2024 3:18 PM [facility] Monocyte Absolute 0.49 0.15 - 1.00 x10E9/L 04/09/2024 3:18 PM [facility] Eosinophil Absolute 0.04 0.00 - 0.60 x10E9/L 04/09/2024 3:18 PM [facility] Basophil Absolute 0.03 0.00 - 0.13 x10E9/L 04/09/2024 3:18 PM [facility] Blood BLOOD SPECIMEN / Unknown Lab Venipuncture / Unknown 04/09/2024 2:07 PM QUILL REAMER 04/09/2024 3:00 PM QUILL REAMER Lazaro Gonzales MD LAB - HEMATOLOGY ORD ERABLES [facility] [address] [place] [address], [facility] [phone] * (ABNORMAL) COMPREHENSIVE METABOLIC PANEL (04/09/2024 2:07 PM [facility]) BUN 22 7 - 26 mg/dL 04/09/2024 3:33 PM [facility] Creatinine 1.33(H) 0.56 - 0.96 mg/dL 04/09/2024 3:33 PM [facility] Sodium 140 136 - 145 mmol/L 04/09/2024 3:33 PM [facility] Potassium 3.9 3.5 - 4.5 mmol/L 04/09/2024 3:33 PM [facility] Chloride 104 98 - 107 mmol/L 04/09/2024 3:33 PM [facility] CO2 22 22 - 29 mmol/L 04/09/2024 3:33 PM [facility] Glucose 160(H) 70 - 99 mg/dL 04/09/2024 3:33 PM [facility] Calcium 9.4 8.4 - 10.2 mg/dL 04/09/2024 3:33 PM [facility] Protein Total 7.6 6.0 - 8.3 g/dL 04/09/2024 3:33 PM [facility] Albumin 3.4 3.4 - 5.0 g/dL 04/09/2024 3:33 PM [facility] Bilirubin Total 0.6 0.2 - 1.2 mg/dL 04/09/2024 3:33 PM [facility] Alkaline Phosphatase 155(H) 40 - 150 U/L 04/09/2024 3:33 PM [facility] ALT 12 5 - 55 U/L 04/09/2024 3:33 PM [facility] AST 20 5 - 34 U/L 04/09/2024 3:33 PM [facility] Anion Gap 14 6 - 16 04/09/2024 3:33 PM [facility] BUN/Creatinine Ratio 17 7 - 23 04/09/2024 3:33 PM [facility] Osmolality Calculated 297(H) 275 - 295 mOsm/kg 04/09/2024 3:33 PM [facility] Albumin/Globulin Ratio 0.8(L) 1.1 - 2.3 04/09/2024 3:33 PM [facility] eGFR by CKD-EPI 41(L) >=90 mL/min/1.7 3 m2 04/09/2024 3:33 PM [facility] Blood BLOOD SPECIMEN / Unknown Lab Venipuncture / Unknown 04/09/2024 2:07 PM QUILL REAMER 04/09/2024 3:00 PM QUILL REAMER Lazaro Gonzales MD LAB - CHEMISTRY DEBBI KHAN [address] [address], [place] [phone] * BILIRUBIN DIRECT (04/09/2024 2:07 PM QUILL REAMER) Bilirubin Conjugated 0.2 0.1 - 0.5 mg/dL 04/09/2024 3:33 PM [facility] Blood BLOOD SPECIMEN / Unknown Lab Venipuncture / Unknown 04/09/2024 2:07 PM QUILL REAMER 04/09/2024 3:00 PM QUILL REAMER Lazaro Gonzales MD LAB - CHEMISTRY DEBBI KHAN [address] [address], [place] [phone] * US ABDOMEN LIMITED (04/09/2024 11:00 AM QUILL REAMER) Anatomical Region Laterality Modality Abdomen Ultrasound 04/09/2024 11:3 6 AM QUILL REAMER Impressions 04/09/2024 2:42 PM QUILL REAMER IMPRESSION: Liver Visualization Score A: No or minimal limitations. US-1 Negative. Repeat surveillance US in 6 months. Patent hepatic vasculature. 1.Hepatic cirrhosis without discrete hepatic observation. Report drafted by Raza Jackson MD I, E. Isin Akduman, MD have personally reviewed and interpreted this examination/study. > Interpreting Provider: Oliver Rosas MD on 04/09/2024 2:42 PM Narrative 04/09/2024 2:42 PM QUILL REAMER PROCEDURE: ??US ABDOMEN LIMITED, DATE/TIME OF EXAM: ??04/09/2024 11:03 AM, LOCATION ??[facility] INDICATION: K74.69: Other cirrhosis of liver (HCC) COMPARISON: None. FINDINGS: Liver Visualization Score: No or minimal limitations in liver visualization Liver Morphology: The liver has a coarse echotexture and nodular surface. Liver Observations: None. Main Portal Vein: Color Doppler evaluation demonstrates patency of the main portal vein. Hepatic Veins: Color Doppler evaluation demonstrates patency of the hepatic veins. Bile Ducts: The common bile duct is nondilated, measuring 5.0 mm. No intrahepatic or extrahepatic biliary dilation. Gallbladder: The gallbladder is absent. Ascites: No ascites is present. Spleen: The spleen measures 11.1 cm in length. Pancreas: The pancreas is obscured by overlying bowel gas. Right Kidney: Right kidney is absent. Procedure Note Ariadna Rosas MD - 04/09/2024 PROCEDURE: US ABDOMEN LIMITED, DATE/TIME OF EXAM: 04/09/2024 11:03 AM, LOCATION [facility] INDICATION: K74.69: Other cirrhosis of liver (HCC) COMPARISON: None. FINDINGS: Liver Visualization Score: No or minimal limitations in liver visualization Liver Morphology: The liver has a coarse echotexture and nodular surface. Liver Observations: None. Main Portal Vein: Color Doppler evaluation demonstrates patency of the main portal vein. Hepatic Veins: Color Doppler evaluation demonstrates patency of the hepatic veins. Bile Ducts: The common bile duct is nondilated, measuring 5.0 mm. No intrahepatic or extrahepatic biliary dilation. Gallbladder: The gallbladder is absent. Ascites: No ascites is present. Spleen: The spleen measures 11.1 cm in length. Pancreas: The pancreas is obscured by overlying bowel gas. Right Kidney: Right kidney is absent. IMPRESSION: Liver Visualization Score A: No or minimal limitations. US-1 Negative. Repeat surveillance US in 6 months. Patent hepatic vasculature. 1.Hepatic cirrhosis without discrete hepatic observation. Report drafted by Raza Jackson MD I, E. Isin Akduman, MD have personally reviewed and interpreted this examination/study. > Interpreting Provider: Oliver Rosas MD on 04/09/2024 2:42 PM Lazaro Gonzales MD US ORDERABLES * HEPATITIS C ANTIBODY (09/19/2023 3:44 PM CDT) Pathologist [facility] Hepatitis C Antibody Non-react ruel Non-reac tive 09/19/2023 5:23 PM CDT [facility] Comment:Hepatitis C Antibody screen indicates no serologic evidence of past or current infection with Hepatitis C Virus. Patients with unexplained liver disease who are immunocompromised or suspected of having acute Hepatitis C infection may benefit from Nucleic Acid Test (ESE) for Hepatitis C Viral RNA to confirm Hepatitis C status. Blood BLOOD SPECIMEN / Unknown Lab Venipuncture / Unknown 09/19/2023 3:44 PM CDT 09/19/2023 3:58 PM CDT Lazaro Gonzales MD LAB - CHEMISTRY DEBBI KHAN [facility] Organization Address City/State/[facility] Co de Phone Number [facility] [address] [address], [facility] [phone] * (ABNORMAL) HEMOGLOBIN A1C (03/30/2015 12:13 PM CDT) Pathologist [facility] Hemoglobin A1c 7.4(H) 4.2 - 5.8 % 03/30/2015 10:32 PM CDT [facility] Estimated Average Glucose 166 mg/dL 03/30/2015 10:32 PM CDT [facility] Whole Blood BLOOD SPECIMEN WITH EDTA / Unknown Venipuncture / Unknown 03/30/2015 12:13 PM CDT 03/30/2015 12:21 PM CDT Narrative [facility] - 03/30/2015 10:32 PM CDT ? [place] [employer] recommended the following cutoff levels: A1c ??> 6.5% -------- ??considered as diabetes if two separate tests > 6.5% or in an appropriate clinical setting. A1c between 5.7 -6.4% ?? considered as prediabetes (suggest increased risk for diabetes and cardiovascular disease). Suggested treatment target level : ??A1c <7% Note: ??A1c test may be affected in certain conditions, listed but not limited to the conditions ??such as heavy or chronic bleeding, hemoglobinopathy/hemoglobin variants, anemia, severe iron deficiency, recent blood transfusion, kidney failure or liver disease. Ordering Provider Unlisted LAB - CHEM ISTRY ORDERABLES Performing Organization Address [facility] de Phone Number [facility] [address] * MICROALBUMIN URINE RANDOM (03/12/2014 11:04 AM CDT) Microalbumin Urine 20.0 0.0 - 20.0 mg/dL 03/12/2014 12:50 PM CDT [facility] Urine URINE / Unknown Venipuncture / Unknown 03/12/2014 11:04 AM CDT 03/12/2014 11:16 AM CDT Dk Kong MD LAB - URINE CHEMISTR Y ORDERABLES Performing Organization Address [facility] de Phone Number [facility] [address] from Last 3 Months or Most Recently Relevant to Health Maintenance Advance Directives * Full Code (Latest Code Status on File) Date Activated Date Inactivated Comments 08/04/2014 10:20 PM 08/06/2014 5:15 PM Care Teams Supervisor Tank Cleaning Relationship Specialty Start Date End Date Marie Matias MD [address] [place] [address] Internal Medicine 11/23/21
--- OUTSIDE RECORDS SUMMARY | 2024-07-01 14:46 | XMS_ITS | Encounter Summary ---
Author Organization [facility] Address [facility] [place] [address] Care Team Providers Care Pro Shop Attendant Name Role Phone Marie Matias MD Unavailable Reason for Visit * Reason Comments Medication Problem Encounter Details Date Type Department Care Team (Late st Contact Info) Description 10/18/2023 Telephone [facility] - [address] [phone] Mariela Mcallister, hand weaver Problem Social History Tobacco Use Types Packs/Day Years [...] No 08/06/2014 documented as of this encounter Miscellaneous Notes * Telephone Encounter - Mariela Mcallister RN - 10/18/2023 2:15 PM CDT Call received from pt to report f/u with shoe lacer. Inquired about a change in medication from metoprolol succinate to carvedilol BID. Floor Steward/Stewardess prefers pt to stay on metoprolol succinate. Dr. Gonzales notified. documented in this encounter Plan of Treatment Upcoming Encounters Date Type Department Care Team (Late st Contact Info) Description 10/08/2024 11:00 AM CDT Appointment [facility] [address] [place] [address] Lazaro Gonzales MD [address] [place] [phone] 10/08/2024 1:00 PM CDT Office Visit [facility] - [address] [place] [address] Lazaro Gonzales MD [address] [place] [phone] documented as of this encounter Visit Diagnoses Not on filedocumented in this encounter Care Teams Pro Shop Attendant Relationship Specialty Start Date End Date Marie Matias MD [address] [place] [phone] Internal Medicine 11/23/21 documented as of this encounter
--- OUTSIDE RECORDS SUMMARY | 2024-07-01 14:46 | XMS_ITS | Clinical Summary ---
Author Organization [facility] Address [address] [facility] [place] [address] Care Team Providers Care Rack Cleaner Name Role Phone Marie Matias MD Unavailable [phone] Source Comments [facility],non-owned Affiliates and Associated Physician Practices is amultiple site organization consisting of ambulatory clinics and hospital sitesin [place], [place], [place] and [place]. This disclosure is being madepursuant to the Care Everywhere program and may not contain all information available regarding this patient. Last updated 18.[facility] Allergies No known active allergies Medications * [...] 1 Tab by mouth once daily. 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 Pain in joint, shoulder region 06/27/2013 Encounters Date Type Department Care Team Description 04/22/2024 Telephone [facility] - Nephrology [address] [place] [phone] Lazaro Gonzales MD Medication Problem 04/22/2024 Telephone [facility] - Nephrology [address] [place] [phone] Lazaro Gonzales MD Opened In Error 04/09/2024 1:53 PM LOGISTICS SUPERVISOR - 04/09/2024 11:59 PM LOGISTICS SUPERVISOR Hospital Encounter [facility] OP DRAW STATION [address] [place] [address] Lazaro Gonzales MD Discharge Disposition: Home or Self Care 04/09/2024 1:00 PM LOGISTICS SUPERVISOR Office Visit [facility] - GI [address] [place] [phone] Lazaro Gonzales MD Abnormal finding on imaging of liver (Primary Dx); Hepatic fibrosis; Thrombocytopenia (HCC); Metabolic dysfunction-associa tavo steatotic liver disease (MASLD) 04/09/2024 10:22 AM LOGISTICS SUPERVISOR - 04/09/2024 1:52 PM LOGISTICS SUPERVISOR Hospital Encounter [facility] [address] [place] [address] Lazaro Gonzales MD Discharge Disposition: Home or Self Care 04/09/2024 Travel from Last 3 Months Immunizations Name Administration Dates Next Due HEP A/HEP B 04/09/2024 Family History Medical History Relation Name Comments Heart Failure Mother Stroke Mother Relation Name Status Comments Mother Social History Tobacco Use Types Packs/Day Years [...] Comments Blood Pressure 126/86 04/09/2024 12:40 PM LOGISTICS SUPERVISOR Pulse 98 04/09/2024 12:40 PM LOGISTICS SUPERVISOR Temperature 36.6 ??C (97.8 ??F) 08/06/2014 11:[address] Respiratory Rate 10 03/07/2022 7:51 AM CDT Oxygen Saturation 97% 04/09/2024 12:40 PM LOGISTICS SUPERVISOR Inhaled Oxygen Concentration - - Weight 72.7 kg (160 lb 3.2 oz) 04/09/2024 12:40 PM LOGISTICS SUPERVISOR Height 157.5 cm (5' 2 ) 04/09/2024 12:40 PM LOGISTICS SUPERVISOR Body Mass Index 29.3 04/09/2024 12:40 PM LOGISTICS SUPERVISOR Plan of Treatment Upcoming Encounters Date Type Department Care Team (Late st Contact Info) Description 10/08/2024 11:[address] [facility] [address] [place] [address] Lazaro Gonzales MD [address] [place] [phone] 10/08/2024 1:00 PM CDT Office Visit [facility] - [address] [facility], [place] [address] Lazaro Gonzales MD [address] [place] [phone] Health Maintenance Due Date Last Done Comments BONE DENSITY TESTING 1945 MEDICARE AWV ? 12 MONTHS 1945 DTAP/TDAP/TD VACCINES (1 - Tdap) 1965 PNEUMOCOCCAL VACCINE 50+ (1 of 2 - PCV) 1965 ZOSTER VACCINE (1 of 2) 01/29/1996 Respiratory Syncytial Virus (RSV) Vaccine Pt: or over 60 yrs (1 - 1-dose 75+ series) 2021 DIABETES RETINOPATHY SCREENING 09/21/2023 DIABETES-FOOT EXAM WITH MONOFILAMENT 09/21/2023 DIABETES-HGB A1C 09/21/2023 08/28/2022, 05/2022, 03/30/2015, Additional history exists COVID-19 VACCINE (3 - season) 2024 09/08/2020, 07/08/2020 INFLUENZA VACCINE (#1) 2024 HEPATITIS B VACCINE (2 of 3 - Hep B Twinrix risk 3-dose series) 05/07/2024 04/09/2024 DEPRESSION SCREENING 06/05/2024 DIABETES - URINE PROTEIN SCREENING 06/05/2024 03/12/2014, 04/30/2013 HEPATITIS A VACCINE (2 of 2 - Risk 2-dose series) 10/07/2024 04/09/2024 DIABETES-SERUM CREATININE 04/09/20252023, 09/19/2023, 10/11/2022, Additional history exists HEPATITIS C SCREENING Completed 09/19/2023 HIB VACCINE Aged Out No longer eligi ble based on patient's age to complete this topic HPV VACCINE Aged Out No longer eligi ble based on patient's age to complete this topic MENINGOCOCCAL (Group B) VACCINE Aged Out No longer eligible based on patient's age to complete this topic MENINGOCOCCAL VACCINE Aged Out No kurt geremias eligible based on patient's age to complete this topic Goals Goal Patient Goal Type Associated Problems Recent Progress Patient-Stated? Author Medication Management General No Lizzie Valente, RN Note: Expected end date: ongoing Interventions: Take all medications as prescribed Procedures Procedure Name Priority Date/Time Associated Diagnosis Comments ALPHA FETOPROTEIN BLOOD TUMOR MARKER Routine 04/09/2024 2:07 PM LOGISTICS SUPERVISOR Other cirrhosis of liver (HCC) BILIRUBIN DIRECT Routine 04/09/2024 2:07 PM LOGISTICS SUPERVISOR Other cirrhosis of liver (HCC) PT-INR [facility] Routine 04/09/2024 2:07 PM LOGISTICS SUPERVISOR Other cirrhosis of liver (HCC) COMPREHENSIVE METABOLIC PANEL Routine 04/09/2024 2:07 PM LOGISTICS SUPERVISOR Other cirrhosis of liver (HCC) CBC W AUTO DIFFERENTIAL Routine 04/09/2024 2:07 PM LOGISTICS SUPERVISOR Other cirrhosis of liver (HCC) US ABDOMEN LIMITED Routine 04/09/2024 11 :00 AM LOGISTICS SUPERVISOR Other cirrhosis of liver (HCC) HEPATITIS C [...] Relevant to Health Maintenance Results * PT-INR [facility] (04/09/2024 2:07 PM LOGISTICS SUPERVISOR) PT 14.6 12.1 - 14.8 Seconds 04/09/2024 3:29 PM LOGISTICS SUPERVISOR [facility] INR 1.2 See Comment 04/09/2024 3:29 PM LOGISTICS SUPERVISOR [facility] Comment:The suggested therap eutic range for standard coumadin (warfarin) therapy is an INR of 2.0-3.0. For high-risk patients (Mechanical Mitral Valve Prosthesis, etc.), the suggested prophylactic therapeutic range is an INR of 2.5-3.5. Blood BLOOD SPECIMEN / Unknown Lab Venipuncture / Unknown 04/09/2024 2:07 PM LOGISTICS SUPERVISOR 04/09/2024 2:54 PM LOGISTICS SUPERVISOR Lazaro Gonzales MD LAB - COAGULATION OR DERABLES [facility] [address] [place] [address], [facility] [phone] * ALPHA FETOPROTEIN BLOOD TUMOR MARKER (04/09/2024 2:07 PM LOGISTICS SUPERVISOR) [facility] Alpha-Fetoprote in Tumor Marker 3.3 <=8.3 ng/mL 04/09/2024 3:51 PM [facility] Comment: AFP values will vary depending on testing procedure used. Results are not comparable across different methods. AFP values obtained by [facility] using an Rivas Alinity Immunoassay. Blood BLOOD SPECIMEN / Unknown Lab Venipuncture / Unknown 04/09/2024 2:07 PM LOGISTICS SUPERVISOR 04/09/2024 3:00 PM LOGISTICS SUPERVISOR Lazaro Gonzales MD LAB - CHEMISTRY DEBBI KHAN [address] [address], [facility] [phone] * (ABNORMAL) CBC WITH DIFFERENTIAL (04/09/2024 2:07 PM LOGISTICS SUPERVISOR) [facility] WBC 9.2 4.0 - 10.7 x10E9/L 04/09/2024 3:18 PM [facility] RBC Count 4.55 3.90 - 5.20 x10E12/L 04/09/2024 3:18 PM [facility] Hemoglobin 12.6 11.9 - 15.8 g/dL 04/09/2024 3:18 PM [facility] Hematocrit 39.9 34.8 - 46.1 % 04/09/2024 3:18 PM [facility] MCV 87.7 80.0 - 98.0 fL 04/09/2024 3:18 PM [facility] MCH 27.7 26.7 - 33.6 pg 04/09/2024 3:18 PM [facility] MCHC 31.6(L) 31.7 - 36.3 g/dL 04/09/2024 3:18 PM [facility] RDW-CV 13.4 11.3 - 14.8 % 04/09/2024 3:18 PM [facility] Platelet Count 103(L) 150 - 420 x10E9/L 04/09/2024 3:18 PM [facility] MPV 04/09/2024 3:18 PM [facility] Comment:Unable to report Neutrophil % 80.8(H) 41.0 - 74.0 % 04/09/2024 3:18 PM [facility] Lymphocyte % 13.0(L) 17.0 - 47.0 % 04/09/2024 3:18 PM [facility] Monocyte % 5.3 3.0 - 11.0 % 04/09/2024 3:18 PM [facility] Eosinophil % 0.4 0.0 - 7.0 % 04/09/2024 3:18 PM [facility] Basophil % 0.3 0.0 - 1.6 % 04/09/2024 3:18 PM [facility] Immature Granulocytes % 0.2 0.0 - 1.0 % 04/09/2024 3:18 PM [facility] Neutrophil Absolute 7.40 1.60 - 7.50 x10E9/L 04/09/2024 3:18 PM [facility] Lymphocyte Absolute 1.19 1.00 - 4.40 x10E9/L 04/09/2024 3:18 PM [facility] Monocyte Absolute 0.49 0.15 - 1.00 x10E9/L 04/09/2024 3:18 PM [facility] Eosinophil Absolute 0.04 0.00 - 0.60 x10E9/L 04/09/2024 3:18 PM [facility] Basophil Absolute 0.03 0.00 - 0.13 x10E9/L 04/09/2024 3:18 PM [facility] Blood BLOOD SPECIMEN / Unknown Lab Venipuncture / Unknown 04/09/2024 2:07 PM LOGISTICS SUPERVISOR 04/09/2024 3:00 PM LOGISTICS SUPERVISOR Lazaro Gonzales MD LAB - HEMATOLOGY ORD ERABLES [facility] [address] [place] [address], [facility] [phone] * (ABNORMAL) COMPREHENSIVE METABOLIC PANEL (04/09/2024 2:07 PM LOGISTICS SUPERVISOR) BUN 22 7 - 26 mg/dL 04/09/2024 3:33 PM [facility] Creatinine 1.33(H) 0.56 - 0.96 mg/dL 04/09/2024 3:33 PM [facility] Sodium 140 136 - 145 mmol/L 04/09/2024 3:33 PM [facility] Potassium 3.9 3.5 - 4.5 mmol/L 04/09/2024 3:33 PM [facility] Chloride 104 98 - 107 mmol/L 04/09/2024 3:33 PM [facility] CO2 22 22 - 29 mmol/L 04/09/2024 3:33 PM [facility] Glucose 160(H) 70 - 99 mg/dL 04/09/2024 3:33 PM [facility] Calcium 9.4 8.4 - 10.2 mg/dL 04/09/2024 3:33 PM [facility] Protein Total 7.6 6.0 - 8.3 g/dL 04/09/2024 3:33 PM [facility] Albumin 3.4 3.4 - 5.0 g/dL 04/09/2024 3:33 PM [facility] Bilirubin Total 0.6 0.2 - 1.2 mg/dL 04/09/2024 3:33 PM [facility] Alkaline Phosphatase 155(H) 40 - 150 U/L 04/09/2024 3:33 PM [facility] ALT 12 5 - 55 U/L 04/09/2024 3:33 PM [facility] AST 20 5 - 34 U/L 04/09/2024 3:33 PM [facility] Anion Gap 14 6 - 16 04/09/2024 3:33 PM [facility] BUN/Creatinine Ratio 17 7 - 23 04/09/2024 3:33 PM [facility] Osmolality Calculated 297(H) 275 - 295 mOsm/kg 04/09/2024 3:33 PM [facility] Albumin/Globulin Ratio 0.8(L) 1.1 - 2.3 04/09/2024 3:33 PM [facility] eGFR by CKD-EPI 41(L) >=90 mL/min/1.7 3 m2 04/09/2024 3:33 PM LOGISTICS SUPERVISOR [facility] Blood BLOOD SPECIMEN / Unknown Lab Venipuncture / Unknown 04/09/2024 2:07 PM LOGISTICS SUPERVISOR 04/09/2024 3:00 PM LOGISTICS SUPERVISOR Lazaro Gonzales MD LAB - CHEMISTRY DEBBI KHAN Performing Organization Address City/[facility]/ZIP Co de Phone Number [address] [address], [facility] [phone] * BILIRUBIN DIRECT (04/09/2024 2:07 PM LOGISTICS SUPERVISOR) Bilirubin Conjugated 0.2 0.1 - 0.5 mg/dL 04/09/2024 3:33 PM LOGISTICS SUPERVISOR [facility] Blood BLOOD SPECIMEN / Unknown Lab Venipuncture / Unknown 04/09/2024 2:07 PM LOGISTICS SUPERVISOR 04/09/2024 3:00 PM LOGISTICS SUPERVISOR Lazaro Gonzales MD LAB - CHEMISTRY DEBBI KHAN [address] [address], [facility] [phone] * US ABDOMEN LIMITED (04/09/2024 11:00 AM LOGISTICS SUPERVISOR) Anatomical Region Laterality Modality Abdomen Ultrasound 04/09/2024 11:3 6 AM LOGISTICS SUPERVISOR Impressions 04/09/2024 2:42 PM LOGISTICS SUPERVISOR IMPRESSION: Liver Visualization Score A: No or minimal limitations. US-1 Negative. Repeat surveillance US in 6 months. Patent hepatic vasculature. 1.Hepatic cirrhosis without discrete hepatic observation. Report drafted by Raza Jackson MD I, Oliver Rosas MD have personally reviewed and interpreted this examination/study. > Interpreting Provider: Oliver Rosas MD on 04/09/2024 2:42 PM Narrative 04/09/2024 2:42 PM LOGISTICS SUPERVISOR PROCEDURE: ??US ABDOMEN LIMITED, DATE/TIME OF EXAM: ??04/09/2024 11:03 AM, LOCATION ??[facility] INDICATION: K74.69: Other cirrhosis of liver (HCC) [...] DATE/TIME OF EXAM: 04/09/2024 11:03 AM, LOCATION [facility] INDICATION: K74.69: Other cirrhosis of liver (HCC) [...] Report drafted by Raza Jackson MD I, Oliver Rosas MD have personally reviewed and interpreted this examination/study. > Interpreting Provider: Oliver Rosas MD on 04/09/2024 2:42 PM Lazaro Gonzales MD US ORDERABLES * HEPATITIS C ANTIBODY (09/19/2023 3:44 PM CDT) Hepatitis C Antibody Non-react ruel Non-reac tive 09/19/2023 5:23 PM CDT [facility] Comment:Hepatitis C Antibody screen indicates [...] Gonzales MD LAB - CHEMISTRY DEBBI KHAN [facility] [place] Organization Address City/State/ZIP Co de Phone Number [facility] [address] [place] [address], [facility] [phone] * (ABNORMAL) HEMOGLOBIN A1C (03/30/2015 12:13 PM CDT) Hemoglobin A1c 7.4(H) 4.2 - 5.8 % 03/30/2015 10:32 PM CDT [facility] Estimated Average Glucose 166 mg/dL 03/30/2015 10:32 PM CDT [facility] Whole Blood BLOOD SPECIMEN WITH EDTA / Unknown Venipuncture / Unknown 03/30/2015 12:13 PM CDT 03/30/2015 12:21 PM CDT Narrative [facility] - 03/30/2015 10:32 PM CDT ? [place] [employer] recommended the following cutoff levels: [...] Provider Unlisted LAB - CHEM ISTRY ORDERABLES [facility] [address] * MICROALBUMIN URINE RANDOM (03/12/2014 11:04 AM CDT) Microalbumin Urine 20.0 0.0 - 20.0 mg/dL 03/12/2014 12:50 PM CDT [facility] Urine URINE / Unknown Venipuncture / Unknown 03/12/2014 11:04 AM CDT 03/12/2014 11:16 AM CDT Dk Kong MD LAB - URINE CHEMISTR Y ORDERABLES [facility] [address] from Last 3 Months or Most Recently Relevant to Health Maintenance Advance Directives * Full Code (Latest Code Status on File) Date Activated Date Inactivated Comments 08/04/2014 10:20 PM 08/06/2014 5:15 PM Care Teams Rack Cleaner Relationship Specialty Start Date End Date Marie Matias MD [address] [place] [address] Internal Medicine 11/23/21
--- OUTSIDE RECORDS SUMMARY | 2024-07-01 14:46 | XMS_ITS | Clinical Summary ---
Author Organization [facility] Address [address] [place] [address]. [place] [address] Care Team Providers Care Tech Ed/Woodshop Teacher Name Role Phone Unavailable Primary Care Provider Unavailabl e Social History Tobacco Use Types Packs/Day Years Used Date Smoking Tobacco: Never Assessed Comments Unknown Sex and Gender Information Value Date Recorded Sex Assigned at Not on file Legal Sex Female 6:12 PM CDT Gender Identity Not on file Sexual Orientation Not on file Plan of Treatment Health Maintenance Due Date Last Done Comments Hepatitis C 01/29/1963 DTaP, Tdap and Td Vaccines ( 1 - Tdap) 1965 Zoster Vaccines (1 of 2) 01/29/1996 Dexa Scan (General) 2011 Pneumococcal Vaccine: 65+ Years (1 of 1 - PCV) 2011 RSV Immunization or 60+ Years (1 - 1-dose 75+ series) 2021 COVID-19 Vaccine (3 - 2023-2 5 season) 2024 09/08/2020, 07/08/2020 Influenza Adult (#1) 2024 Meningococcal B Vaccine Aged Out No l onger eligible based on patient's age to complete this topic Meningococcal Vaccine Aged Out No kurt geremias eligible based on patient's age to complete this topic RSV Immunizations Under 20 Months Aged Out No longer eligible b ased on patient's age to complete this topic
--- OUTSIDE RECORDS SUMMARY | 2024-07-01 14:46 | XMS_ITS | Patient Health Summary ---
Author Organization [facility] Address [address] [place] [address] Care Team Providers Care Healthcare Administration Intern Name Role Phone Marie Matias MD Unavailable [phone] Note from [facility] [place]non-owned Affiliates and Associated Physician Practices is amultiple site organization consisting of ambulatory clinics and hospital sitesin [place], [place], [place] and [place]. This disclosure is being madepursuant to the Care Everywhere program and may not contain all information available regarding this patient. Last updated 18.[facility] Allergies No known active allergies Medications * Be aware that medications may not be up to date on this document. Alwaysverify current medications with the patient. * Multiple Vitamins-Minerals (CENTRUM SILVER PO) Take 1 Tab by mouth once daily. * calcium polycarbophil (FIBERCON) 625 MG tablet Take by mouth 2 times daily. * Ascorbic Acid (VITAMIN C) 100 MG CHEW Take 1 Tab by mouth once daily. * [place]-3 Fatty Acids 1200 MG CAPS Take 1 Cap by mouth once daily. * Coenzyme Q10 (CO Q 10 PO) Take 1 Tab by mouth once daily. * aspirin (Aspirin) 325 MG tablet Take 1 (one) tablet by mouth once daily * atorvastatin (Lipitor) 40 MG tablet Take 1 (one) tablet by mouth at bedtime * furosemide (Lasix) 20 MG tablet Take 1 (one) tablet by mouth 2 times daily * pantoprazole EC (Protonix) 40 MG tablet Take 1 (one) tablet by mouth once daily * semaglutide (Rybelsus) 3 MG tablet Take 3 mg by mouth once daily * ferrous sulfate 325 (65 FE) MG tablet(Started 05/06/2022) Take 1 (one) tablet by mouth 2 times daily With meals * empagliflozin (Jardiance) 10 MG tablet(Started 05/06/2022) Take 1 (one) tablet by mouth once daily * Lactobacillus (probiotic acidophilus) capsule(Started 05/06/2022) Take 1 (one) capsule by mouth once daily * metoprolol succinate XL 24hr (Toprol XL) 50 MG tablet(Started 04/11/2022) Take 1.5 (one and one-half) tablets by mouth at bedtime Active Problems Problem Noted Date Diagnosed Date Liver cirrhosis secondary to MASH 09/21/2023 S/P placement of cardiac pacemaker 10/20/2022 09/21/2023 Chronic kidney disease (CKD), stage IV (severe) 10/10/2022 09/21/2023 Atrial fibrillation 02/14/2022 09/21/2023 QT prolongation 03/10/2021 09/21/2023 Chronic heart failure with preserved ejection fr action 11/07/2020 09/21/2023 History of breast cancer 10/23/2020 024 Presence of Watchman left atrial appendage closu re device 09/25/2020 09/21/2023 DM2 (diabetes mellitus, type 2) 08/28/2020 09/21/2023 Coronary artery disease invo lving [place] coronary artery of [place] heart without angina pectoris 11/19/2018 09/21/2023 Angina pectoris, unstable 11/07/20182023 H/O TIA (transient ischemic attack) and stroke 1 07/03/2016 09/21/2023 Iron deficiency anemia 04/20/2016 Mixed diabetic hyperlipidemi a associated with type 2 diabetes mellitus 07/21/2015 09/21/2023 Unknown and unspecified causes of morbidity 07/0609/21/2023 Longstanding persistent atrial fibrillation 11/0309/21/2023 Pain in joint, shoulder region 06/27/2013 Immunizations * HEP A/HEP B(Given 04/09/2024) Social History Tobacco Use Types Packs/Day Years [...] Comments Blood Pressure 126/86 04/09/2024 12:40 PM BUILDINGS AND GROUNDS COORDINATOR Pulse 98 04/09/2024 12:40 PM BUILDINGS AND GROUNDS COORDINATOR Temperature 36.6 ??C (97.8 ??F) 08/06/2014 11:[address] Respiratory Rate 10 03/07/2022 7:51 AM CDT Oxygen Saturation 97% 04/09/2024 12:40 PM BUILDINGS AND GROUNDS COORDINATOR Inhaled Oxygen Concentration - - Weight 72.7 kg (160 lb 3.2 oz) 04/09/2024 12:40 PM BUILDINGS AND GROUNDS COORDINATOR Height 157.5 cm (5' 2 ) 04/09/2024 12:40 PM BUILDINGS AND GROUNDS COORDINATOR Body Mass Index 29.3 04/09/2024 12:40 PM BUILDINGS AND GROUNDS COORDINATOR Procedures * ALPHA FETOPROTEIN BLOOD TUMOR MARKER(Performed 04/09/2024) Performed for Other cirrhosis of liver (HCC) * BILIRUBIN DIRECT(Performed 04/09/2024) Performed for Other cirrhosis of liver (HCC) * PT-INR [facility](Performed 04/09/2024) Performed for Other cirrhosis of liver (HCC) * COMPREHENSIVE METABOLIC PANEL(Performed 04/09/2024) Performed for Other cirrhosis of liver (HCC) * CBC W AUTO DIFFERENTIAL(Performed 04/09/2024) Performed for Other cirrhosis of liver (HCC) * US ABDOMEN LIMITED(Performed 04/09/2024) Performed for Other cirrhosis of liver (HCC) * IRON + TRANSFERRIN PANEL(Performed 09/19/2023) Performed for Hepatic fibrosis * ALPHA FETOPROTEIN BLOOD TUMOR MARKER(Performed 09/19/2023) Performed for Hepatic fibrosis * HEPATITIS A ANTIBODY(Performed 09/19/2023) Performed for Encounter for screening for other viral diseases, Hepatic fibrosis * HEPATITIS B SURFACE ANTIBODY(Performed 09/19/2023) Performed for Encounter for screening for other viral diseases, Hepatic fibrosis * HEPATITIS C ANTIBODY(Performed 09/19/2023) Performed for Hepatic fibrosis * FERRITIN(Performed 09/19/2023) Performed for Hepatic fibrosis * HEPATITIS B SURFACE ANTIGEN W RFLX CONFIRMATION(Performed 09/19/2023) Performed for Encounter for screening for other viral diseases, Hepatic fibrosis * HEPATITIS B CORE ANTIBODY TOTAL(Performed 09/19/2023) Performed for Encounter for screening for other viral diseases, Hepatic fibrosis * PT-INR [facility](Performed 09/19/2023) Performed for Hepatic fibrosis * COMPREHENSIVE METABOLIC PANEL(Performed 09/19/2023) Performed for Hepatic fibrosis * CBC W/O DIFFERENTIAL(Performed 09/19/2023) Performed for Hepatic fibrosis * MS LIVER ELASTOGRAPHY(Performed 09/19/2023) Performed for Hepatic fibrosis * DERMATOPATHOLOGY(Performed 01/03/2023) * DERMATOPATHOLOGY(Performed 11/21/2022) * DERMATOPATHOLOGY(Performed 07/15/2021) * DERMATOPATHOLOGY(Performed 01/25/2021) * DERMATOPATHOLOGY(Performed 12/21/2020) * ALT(Performed 03/30/2015) Performed for Diabetes mellitus type II, controlled, with no complications (HCC) * LIPID PROFILE(Performed 03/30/2015) Performed for Diabetes mellitus type II, controlled, with no complications (HCC) * HEMOGLOBIN A1C(Performed 03/30/2015) Performed for Diabetes mellitus type II, controlled, with no complications (HCC) * BASIC METABOLIC PANEL (CALCIUM TOTAL)(Performed 03/30/2015) Performed for Diabetes mellitus type II, controlled, with no complications (HCC) * CARDIAC RHYTHM STRIP ORDER(Performed 08/12/2014) * GLUCOSE - POINT OF CARE(Performed 08/06/2014) * NM MYOCARD PERF REST STRESS(Performed 08/06/2014) Performed for Chest tightness * US BREAST LEFT LTD(Performed 08/06/2014) Performed for Chest tightness, History of breast cancer * PHOSPHORUS BLOOD(Performed 08/06/2014) Performed for Chest tightness * MAGNESIUM BLOOD(Performed 08/06/2014) Performed for Chest tightness * COMPREHENSIVE METABOLIC PANEL(Performed 08/06/2014) Performed for Chest tightness * CBC W AUTO DIFFERENTIAL(Performed 08/06/2014) Performed for Chest tightness * PT-INR(Performed 08/06/2014) * GLUCOSE - POINT OF CARE(Performed 08/06/2014) * GLUCOSE - POINT OF CARE(Performed 08/05/2014) * GLUCOSE - POINT OF CARE(Performed 08/05/2014) * GLUCOSE - POINT OF CARE(Performed 08/05/2014) * TROPONIN I(Performed 08/05/2014) Performed for SOB (shortness of breath), Thoracic back pain, Chest tightness, Left shoulder pain, Hypertension, Hyperlipidemia, Borderline diabetes, History of atrial fibrillation, History of breast cancer, Anticoagulated on Coumadin, Chest pain * TSH(Performed 08/05/2014) Performed for SOB (shortness of breath), Thoracic back pain, Chest tightness, Left shoulder pain, Hypertension, Hyperlipidemia, Borderline diabetes, History of atrial fibrillation, History of breast cancer, Anticoagulated on Coumadin, Chest pain * PT-INR(Performed 08/05/2014) Performed for SOB (shortness of breath), Thoracic back pain, Chest tightness, Left shoulder pain, Hypertension, Hyperlipidemia, Borderline diabetes, History of atrial fibrillation, History of breast cancer, Anticoagulated on Coumadin, Chest pain * LIPASE BLOOD(Performed 08/05/2014) Performed for SOB (shortness of breath), Thoracic back pain, Chest tightness, Left shoulder pain, Hypertension, Hyperlipidemia, Borderline diabetes, History of atrial fibrillation, History of breast cancer, Anticoagulated on Coumadin, Chest pain * LIPID PROFILE(Performed 08/05/2014) Performed for SOB (shortness of breath), Thoracic back pain, Chest tightness, Left shoulder pain, Hypertension, Hyperlipidemia, Borderline diabetes, History of atrial fibrillation, History of breast cancer, Anticoagulated on Coumadin, Chest pain * CBC W AUTO DIFFERENTIAL(Performed 08/05/2014) Performed for SOB (shortness of breath), Thoracic back pain, Chest tightness, Left shoulder pain, Hypertension, Hyperlipidemia, Borderline diabetes, History of atrial fibrillation, History of breast cancer, Anticoagulated on Coumadin, Chest pain * COMPREHENSIVE METABOLIC PANEL(Performed 08/05/2014) Performed for SOB (shortness of breath), Thoracic back pain, Chest tightness, Left shoulder pain, Hypertension, Hyperlipidemia, Borderline diabetes, History of atrial fibrillation, History of breast cancer, Anticoagulated on Coumadin, Chest pain * EKG 12-LEAD(Performed 08/05/2014) Performed for SOB (shortness of breath), Thoracic back pain, Chest tightness, Left shoulder pain, Hypertension, Hyperlipidemia, Borderline diabetes, History of atrial fibrillation, History of breast cancer, Anticoagulated on Coumadin, Chest pain * URINALYSIS REFLEX MICROSCOPIC REFLEX CULTURE(Performed 08/05/2014) Performed for SOB (shortness of breath), Thoracic back pain, Chest tightness, Left shoulder pain, Hypertension, Hyperlipidemia, Borderline diabetes, History of atrial fibrillation, History of breast cancer, Anticoagulated on Coumadin, Chest pain * ECHOCARDIOGRAM 2D WITH DOPPLER(Performed 08/05/2014) Performed for Chest tightness * TROPONIN I(Performed 08/04/2014) Performed for SOB (shortness of breath), Thoracic back pain, Chest tightness, Left shoulder pain, Hypertension, Hyperlipidemia, Borderline diabetes, History of atrial fibrillation, History of breast cancer, Anticoagulated on Coumadin, Chest pain * CT ANGIO CHEST(Performed 08/04/2014) Performed for SOB (shortness of breath), Thoracic back pain * EKG 12-LEAD(Performed 08/04/2014) Performed for Thoracic back pain, Chest tightness * XR CHEST 1VW PORTABLE(Performed 08/04/2014) Performed for SOB (shortness of breath) * OXYGEN(Performed 08/04/2014) * PT-INR(Performed 08/04/2014) * COMPREHENSIVE METABOLIC PANEL(Performed 08/04/2014) * CBC W AUTO DIFFERENTIAL(Performed 08/04/2014) * TROPONIN I(Performed 08/04/2014) * EKG 12-LEAD(Performed 08/04/2014) Performed for SOB (shortness of breath) * EKG 12-LEAD(Performed 08/04/2014) Performed for SOB (shortness of breath) * ALT(Performed 07/03/2014) Performed for HTN (hypertension), Type Ii Or Unspecified Type Diabetes Mellitus Without Mention Of Complication, Not Stated As Uncontrolled (Hcc) * LDL CHOLESTEROL DIRECT(Performed 07/03/2014) Performed for HTN (hypertension), Type Ii Or Unspecified Type Diabetes Mellitus Without Mention Of Complication, Not Stated As Uncontrolled (Hcc) * HEMOGLOBIN A1C(Performed 07/03/2014) Performed for HTN (hypertension), Type Ii Or Unspecified Type Diabetes Mellitus Without Mention Of Complication, Not Stated As Uncontrolled (Hcc) * BASIC METABOLIC PANEL (CALCIUM TOTAL)(Performed 07/03/2014) Performed for HTN (hypertension), Type Ii Or Unspecified Type Diabetes Mellitus Without Mention Of Complication, Not Stated As Uncontrolled (Hcc) * CBC W/O DIFFERENTIAL(Performed 03/12/2014) Performed for Type Ii Or Unspecified Type Diabetes Mellitus Without Mention Of Complication, Not Stated As Uncontrolled (Hcc), Fatigue, Hypertension * ALT(Performed 03/12/2014) Performed for Type Ii Or Unspecified Type Diabetes Mellitus Without Mention Of Complication, Not Stated As Uncontrolled (Hcc), Fatigue, Hypertension * LDL CHOLESTEROL DIRECT(Performed 03/12/2014) Performed for Type Ii Or Unspecified Type Diabetes Mellitus Without Mention Of Complication, Not Stated As Uncontrolled (Hcc), Fatigue, Hypertension * MICROALBUMIN URINE RANDOM(Performed 03/12/2014) Performed for Type Ii Or Unspecified Type Diabetes Mellitus Without Mention Of Complication, Not Stated As Uncontrolled (Hcc), Fatigue, Hypertension * HEMOGLOBIN A1C(Performed 03/12/2014) Performed for Type Ii Or Unspecified Type Diabetes Mellitus Without Mention Of Complication, Not Stated As Uncontrolled (Hcc), Fatigue, Hypertension * BASIC METABOLIC PANEL (CALCIUM TOTAL)(Performed 03/12/2014) Performed for Type Ii Or Unspecified Type Diabetes Mellitus Without Mention Of Complication, Not Stated As Uncontrolled (Hcc), Fatigue, Hypertension * TROPONIN I(Performed 01/22/2014) * TROPONIN I(Performed 01/22/2014) * XR CHEST 1VW PORTABLE(Performed 01/21/2014) * B-TYPE NATRIURETIC PEPTIDE(Performed 01/21/2014) * TROPONIN I(Performed 01/21/2014) * COMPREHENSIVE METABOLIC PANEL(Performed 01/21/2014) * PT PTT PANEL(Performed 01/21/2014) * CBC W AUTO DIFFERENTIAL(Performed 01/21/2014) * EKG 12-LEAD(Performed 01/21/2014) * GLUCOSE - POINT OF CARE(Performed 01/21/2014) * ALT(Performed 10/21/2013) Performed for Type Ii Or Unspecified Type Diabetes Mellitus Without Mention Of Complication, Not Stated As Uncontrolled (Hcc) * LIPID PROFILE(Performed 10/21/2013) Performed for Type Ii Or Unspecified Type Diabetes Mellitus Without Mention Of Complication, Not Stated As Uncontrolled (Hcc) * HEMOGLOBIN A1C(Performed 10/21/2013) Performed for Type Ii Or Unspecified Type Diabetes Mellitus Without Mention Of Complication, Not Stated As Uncontrolled (Hcc) * BASIC METABOLIC PANEL (CALCIUM TOTAL)(Performed 10/21/2013) Performed for Type Ii Or Unspecified Type Diabetes Mellitus Without Mention Of Complication, Not Stated As Uncontrolled (Hcc) * PT-INR(Performed 10/21/2013) Performed for Atrial fibrillation (HCC) * PT-INR(Performed 08/23/2013) Performed for Atrial fibrillation (HCC) * PT-INR(Performed 07/17/2013) Performed for Atrial fibrillation (HCC) * LDL CHOLESTEROL DIRECT(Performed 07/01/2013) Performed for Type Ii Or Unspecified Type Diabetes Mellitus Without Mention Of Complication, Not Stated As Uncontrolled (Hcc) * ALT(Performed 04/30/2013) Performed for Type Ii Or Unspecified Type Diabetes Mellitus Without Mention Of Complication, Not Stated As Uncontrolled (Hcc) * BASIC METABOLIC PANEL (CALCIUM TOTAL)(Performed 04/30/2013) Performed for Type Ii Or Unspecified Type Diabetes Mellitus Without Mention Of Complication, Not Stated As Uncontrolled (Hcc) * PT-INR(Performed 04/30/2013) Performed for Atrial fibrillation (HCC) * MICROALBUMIN URINE RANDOM(Performed 04/30/2013) Performed for Type Ii Or Unspecified Type Diabetes Mellitus Without Mention Of Complication, Not Stated As Uncontrolled (Hcc) * HEMOGLOBIN A1C(Performed 04/30/2013) Performed for Type Ii Or Unspecified Type Diabetes Mellitus Without Mention Of Complication, Not Stated As Uncontrolled (Hcc) * PT-INR(Performed 03/06/2013) Performed for Atrial fibrillation (HCC) * MRI BREAST BILAT WWO CONTRAST(Performed 11/10/2011) Performed for Malignant neoplasm of lower-inner quadrant of female breast (HCC) * BUN+CREATININE BLOOD PNL - POINT OF CARE(Performed 11/10/2011) Performed for Malignant neoplasm of breast (female), unspecified site (HCC), Malignant neoplasm of lower-inner quadrant of female breast (HCC) * GROSS + MICRO EXAM(Performed 04/20/2010) Results * PT-INR [facility] (04/09/2024 2:07 PM BUILDINGS AND GROUNDS COORDINATOR) Only the most recent of2 resultswithin the time period is included. PT 14.6 12.1 - 14.8 Seconds 04/09/2024 3:29 PM BUILDINGS AND GROUNDS COORDINATOR [facility] INR 1.2 See Comment 04/09/2024 3:29 PM BUILDINGS AND GROUNDS COORDINATOR [facility] Comment:The suggested therap eutic range for standard coumadin (warfarin) therapy is an INR of 2.0-3.0. For high-risk patients (Mechanical Mitral Valve Prosthesis, etc.), the suggested prophylactic therapeutic range is an INR of 2.5-3.5. Blood BLOOD SPECIMEN / Unknown Lab Venipuncture / Unknown 04/09/2024 2:07 PM BUILDINGS AND GROUNDS COORDINATOR 04/09/2024 2:54 PM BUILDINGS AND GROUNDS COORDINATOR Lazaro Gonzales MD LAB - COAGULATION OR DERABLES [facility] [address] [place] [address], [facility] [phone] * ALPHA FETOPROTEIN BLOOD TUMOR MARKER (04/09/2024 2:07 PM BUILDINGS AND GROUNDS COORDINATOR) Only the most recent of2 resultswithin the time period is included. [facility] Alpha-Fetoprote in Tumor Marker 3.3 <=8.3 ng/mL 04/09/2024 3:51 PM [facility] Comment: AFP values will vary depending on testing procedure used. Results are not comparable across different methods. AFP values obtained by [facility] using an [employer] Alinity Immunoassay. Blood BLOOD SPECIMEN / Unknown Lab Venipuncture / Unknown 04/09/2024 2:07 PM BUILDINGS AND GROUNDS COORDINATOR 04/09/2024 3:00 PM BUILDINGS AND GROUNDS COORDINATOR Lazaro Gonzales MD LAB - CHEMISTRY ORDE BILL [facility] [address] [place] [address], [facility] [phone] * (ABNORMAL) CBC WITH DIFFERENTIAL (04/09/2024 2:07 PM BUILDINGS AND GROUNDS COORDINATOR) Only the most recent of5 resultswithin the time period is included. [facility] WBC 9.2 4.0 - 10.7 x10E9/L 04/09/2024 3:18 PM [facility] RBC Count 4.55 3.90 - 5.20 x10E12/L 04/09/2024 3:18 PM [facility] Hemoglobin 12.6 11.9 - 15.8 g/dL 04/09/2024 3:18 PM [facility] Hematocrit 39.9 34.8 - 46.1 % 04/09/2024 3:18 PM [facility] MCV 87.7 80.0 - 98.0 fL 04/09/2024 3:18 PM [facility] MCH 27.7 26.7 - 33.6 pg 04/09/2024 3:18 PM [facility] MCHC 31.6(L) 31.7 - 36.3 g/dL 04/09/2024 3:18 PM [facility] RDW-CV 13.4 11.3 - 14.8 % 04/09/2024 3:18 PM [facility] Platelet Count 103(L) 150 - 420 x10E9/L 04/09/2024 3:18 PM [facility] MPV 04/09/2024 3:18 PM [facility] Comment:Unable to report Neutrophil % 80.8(H) 41.0 - 74.0 % 04/09/2024 3:18 PM [facility] Lymphocyte % 13.0(L) 17.0 - 47.0 % 04/09/2024 3:18 PM [facility] Monocyte % 5.3 3.0 - 11.0 % 04/09/2024 3:18 PM [facility] Eosinophil % 0.4 0.0 - 7.0 % 04/09/2024 3:18 PM [facility] Basophil % 0.3 0.0 - 1.6 % 04/09/2024 3:18 PM [facility] Immature Granulocytes % 0.2 0.0 - 1.0 % 04/09/2024 3:18 PM [facility] Neutrophil Absolute 7.40 1.60 - 7.50 x10E9/L 04/09/2024 3:18 PM [facility] Lymphocyte Absolute 1.19 1.00 - 4.40 x10E9/L 04/09/2024 3:18 PM [facility] Monocyte Absolute 0.49 0.15 - 1.00 x10E9/L 04/09/2024 3:18 PM [facility] Eosinophil Absolute 0.04 0.00 - 0.60 x10E9/L 04/09/2024 3:18 PM [facility] Basophil Absolute 0.03 0.00 - 0.13 x10E9/L 04/09/2024 3:18 PM [facility] Blood BLOOD SPECIMEN / Unknown Lab Venipuncture / Unknown 04/09/2024 2:07 PM BUILDINGS AND GROUNDS COORDINATOR 04/09/2024 3:00 PM BUILDINGS AND GROUNDS COORDINATOR Lazaro Gonzales MD LAB - HEMATOLOGY ORD ERABLES [facility] [address] [place] [address] [phone] * (ABNORMAL) COMPREHENSIVE METABOLIC PANEL (04/09/2024 2:07 PM BUILDINGS AND GROUNDS COORDINATOR) Only the most recent of6 resultswithin the time period is included. BUN 22 7 - 26 mg/dL 04/09/2024 3:33 PM [facility] Creatinine 1.33(H) 0.56 - 0.96 mg/dL 04/09/2024 3:33 PM [facility] Sodium 140 136 - 145 mmol/L 04/09/2024 3:33 PM [facility] Potassium 3.9 3.5 - 4.5 mmol/L 04/09/2024 3:33 PM [facility] Chloride 104 98 - 107 mmol/L 04/09/2024 3:33 PM [facility] CO2 22 22 - 29 mmol/L 04/09/2024 3:33 PM [facility] Glucose 160(H) 70 - 99 mg/dL 04/09/2024 3:33 PM [facility] Calcium 9.4 8.4 - 10.2 mg/dL 04/09/2024 3:33 PM [facility] Protein Total 7.6 6.0 - 8.3 g/dL 04/09/2024 3:33 PM [facility] Albumin 3.4 3.4 - 5.0 g/dL 04/09/2024 3:33 PM [facility] Bilirubin Total 0.6 0.2 - 1.2 mg/dL 04/09/2024 3:33 PM [facility] Alkaline Phosphatase 155(H) 40 - 150 U/L 04/09/2024 3:33 PM [facility] ALT 12 5 - 55 U/L 04/09/2024 3:33 PM [facility] AST 20 5 - 34 U/L 04/09/2024 3:33 PM [facility] Anion Gap 14 6 - 16 04/09/2024 3:33 PM [facility] BUN/Creatinine Ratio 17 7 - 23 04/09/2024 3:33 PM [facility] Osmolality Calculated 297(H) 275 - 295 mOsm/kg 04/09/2024 3:33 PM [facility] Albumin/Globulin Ratio 0.8(L) 1.1 - 2.3 04/09/2024 3:33 PM [facility] eGFR by CKD-EPI 41(L) >=90 mL/min/1.7 3 m2 04/09/2024 3:33 PM [facility] Blood BLOOD SPECIMEN / Unknown Lab Venipuncture / Unknown 04/09/2024 2:07 PM BUILDINGS AND GROUNDS COORDINATOR 04/09/2024 3:00 PM BUILDINGS AND GROUNDS COORDINATOR Lazaro Gonzales MD LAB - CHEMISTRY DEBBI KHAN [address] [address], [facility] [phone] * BILIRUBIN DIRECT (04/09/2024 2:07 PM BUILDINGS AND GROUNDS COORDINATOR) Bilirubin Conjugated 0.2 0.1 - 0.5 mg/dL 04/09/2024 3:33 PM [facility] Blood BLOOD SPECIMEN / Unknown Lab Venipuncture / Unknown 04/09/2024 2:07 PM BUILDINGS AND GROUNDS COORDINATOR 04/09/2024 3:00 PM BUILDINGS AND GROUNDS COORDINATOR Lazaro Gonzales MD LAB - CHEMISTRY DEBBI KHAN Performing Organization Address City/[facility]/ZIP Co de Phone Number [address] [address], [facility] [phone] * US ABDOMEN LIMITED (04/09/2024 11:00 AM BUILDINGS AND GROUNDS COORDINATOR) Anatomical Region Laterality Modality Abdomen Ultrasound 04/09/2024 11:3 6 AM BUILDINGS AND GROUNDS COORDINATOR Impressions 04/09/2024 2:42 PM BUILDINGS AND GROUNDS COORDINATOR IMPRESSION: Liver Visualization Score A: No or minimal limitations. US-1 Negative. Repeat surveillance US in 6 months. Patent hepatic vasculature. 1.Hepatic cirrhosis without discrete hepatic observation. Report drafted by Raza Jackson MD IOliver MD have personally reviewed and interpreted this examination/study. > Interpreting Provider: Oliver Rosas MD on 04/09/2024 2:42 PM Narrative 04/09/2024 2:42 PM BUILDINGS AND GROUNDS COORDINATOR PROCEDURE: ??US ABDOMEN LIMITED, DATE/TIME OF EXAM: ??04/09/2024 11:03 AM, LOCATION ??[facility] INDICATION: K74.69: Other cirrhosis of liver [...] OF EXAM: 04/09/2024 11:03 AM, LOCATION [facility] INDICATION: K74.69: Other cirrhosis of liver [...] on 04/09/2024 2:42 PM Lazaro Gonzales MD ORDERABLES * (ABNORMAL) CBC W/O DIFFERENTIAL (09/19/2023 3:44 PM CDT) Only the most recent of2 resultswithin the time period is included. [facility] WBC 9.8 4.0 - 10.7 x10E9/L 09/19/2023 4:07 PM T [facility] RBC Count 4.76 3.90 - 5.20 x10E12/L 09/19/2023 4:07 PM [facility] Hemoglobin 13.6 11.9 - 15.8 g/dL 09/19/2023 4:07 PM [facility] Hematocrit 41.1 34.8 - 46.1 % 09/19/2023 4:07 PM [facility] MCV 86.3 80.0 - 98.0 fL 09/19/2023 4:07 PM [facility] MCH 28.6 26.7 - 33.6 pg 09/19/2023 4:07 PM [facility] MCHC 33.1 31.7 - 36.3 g/dL 09/19/2023 4:07 PM [facility] RDW-CV 12.6 11.3 - 14.8 % 09/19/2023 4:07 PM [facility] Platelet Count 127(L) 150 - 420 x10E9/L 09/19/2023 4:07 PM [facility] MPV 12.7(H) 7.8 - 11.4 fL 09/19/2023 4:07 PM [facility] Blood BLOOD SPECIMEN / Unknown Lab Venipuncture / Unknown 09/19/2023 3:44 PM CDT 09/19/2023 4:01 PM CDT Lazaro Gonzales MD LAB - HEMATOLOGY ORD ERABLES [facility] [address] [place] [address], [facility] [phone] * HEPATITIS B SURFACE ANTIBODY (09/19/2023 3:44 PM CDT) [facility] Hepatitis B Virus Surface Antibody Non-react ruel Non-react ruel 09/19/2023 5:23 PM CDT [facility] Comment: < 8 mIU/mL Hepatitis B surface Antibody (HBsAb). Nonreactive for HBsAb - individual is considered not immune to Hepatitis B Virus infection. Hepatitis B Surface Antibody Quantitative 0.0 <8.0 mIU/mL 09/19/2023 5:23 PM CDT [facility] Comment: Hepatitis B Surface Antibody Numeric Result Interpretation: ? Nonreactive: ?<8.0 mIU/mL ? Indeterminate: ??8.0 - 12.0 mIU/mL ? Reactive: ?>12.0 mIU/mL ? Blood BLOOD SPECIMEN / Unknown Lab Venipuncture / Unknown 09/19/2023 3:44 PM CDT 09/19/2023 3:58 PM CDT Lazaro Gonzales MD LAB - CHEMISTRY DEBBI KHAN Performing Organization Address City/[facility]/ZIP Co de Phone Number [facility] [address] [place] [address], [facility] [phone] * HEPATITIS B CORE ANTIBODY TOTAL (09/19/2023 3:44 PM CDT) Pathologist [facility] HBc Antibody Total Non-reacti ve Non-reacti ve 09/19/2023 5:23 PM CDT [facility] Blood BLOOD SPECIMEN / Unknown Lab Venipuncture / Unknown 09/19/2023 3:44 PM CDT 09/19/2023 3:58 PM CDT Lazaro Gonzales MD LAB - CHEMISTRY DEBBI KHAN [facility] [address] [place] [address], [place] [phone] * HEPATITIS B SURFACE ANTIGEN W RFLX CONFIRMATION (09/19/2023 3:44 PM CDT) [facility] Hepatitis B Virus Surface Antigen Non-reacti ve Non-reacti ve 09/19/2023 5:23 PM CDT [facility] Blood BLOOD SPECIMEN / Unknown Lab Venipuncture / Unknown 09/19/2023 3:44 PM CDT 09/19/2023 3:58 PM CDT Lazaro Gonzales MD LAB - CHEMISTRY DEBBI KHAN Performing Organization Address [facility] Co de Phone Number [address] [address], [facility] [phone] * IRON + TRANSFERRIN PANEL (09/19/2023 3:44 PM CDT) [facility] Iron 77 40 - 150 ug/dL 09/19/2023 5:05 PM CDT [facility] Transferrin 218 174 - 382 mg/dL 09/19/2023 5:05 PM CDT [facility] Transferrin Saturation % 28 16 - 50 % 09/19/2023 5:05 PM CDT [facility] TIBC Calculated 273 240 - 450 ug/dL 09/19/2023 5:05 PM CDT [facility] Blood BLOOD SPECIMEN / Unknown Lab Venipuncture / Unknown 09/19/2023 3:44 PM CDT 09/19/2023 3:58 PM CDT Lazaro Gonzales MD LAB - CHEMISTRY DEBBI KHAN Performing Organization Address [facility]/ZIP Co de Phone Number [address] [address], [place] [phone] * HEPATITIS C ANTIBODY (09/19/2023 3:44 PM CDT) [facility] Hepatitis C Antibody Non-react ruel Non-reac tive 09/19/2023 5:23 PM CDT [facility] Comment:Hepatitis C Antibody screen indicates no [...] - CHEMISTRY DEBBI KHAN Performing Organization Address City/[facility]/ZIP Co de Phone Number [address] [address], [facility] [phone] * (ABNORMAL) HEPATITIS A ANTIBODY (09/19/2023 3:44 PM CDT) Hepatitis A Virus Antibody Total Positive( A) Negative 09/21/2023 6:10 PM CDT [employer] ([facility]) Comment: The positive anti-HAV is consistent with recent or remote Hepatitis A infection or antibody response to HAV vaccination. False positive anti-HAV can occur. Performed By: [employer] [address] [place] [address] Road Gang Supervisor: Buddy King MD, PhD CLIA Number: [id number] Blood BLOOD SPECIMEN / Unknown Lab Venipuncture / Unknown 09/19/2023 3:44 PM CDT 09/19/2023 3:58 PM CDT Lazaro Gonzales MD LAB - CHEMISTRY DEBBI KHAN Performing Organization Address [facility]/ZIP Co de Phone Number [employer] [facility]) [address] [place], [place] [address] * (ABNORMAL) FERRITIN (09/19/2023 3:44 PM CDT) Pathologist [facility] Ferritin 660(H) 13 - 204 ng/mL 09/19/2023 5:23 PM CDT [facility] Blood BLOOD SPECIMEN / Unknown Lab Venipuncture / Unknown 09/19/2023 3:44 PM CDT 09/19/2023 3:58 PM CDT Lazaro Gonzales MD LAB - CHEMISTRY DEBBI KHAN Performing Organization Address City/[facility]/ZIP Co de Phone Number [facility] [address] [place] [address], [facility] [phone] * MS LIVER ELASTOGRAPHY (09/19/2023 2:21 PM CDT) Narrative Gen Delgadillo MD - 09/19/2023 2:21 PM CDT Gen Delgadillo MD ? 09/21/2023 ??4:54 PM Diagnosis: Hepatic Fibrosis RN verified patient NPO for prior 3 hours. Procedure explained. Date of Exam: 09/19/2023 Liver Stiffness: (LSM, kPa) median: ??28.3 IQR/Median% (ideally < 30%): ??28% CAP (controlled attenuation parameter): ??225 Technical Difficulty: None Ordering Provider: Lazaro Gonzales MD Phone Fax Fibroscan interpretation: I have personally reviewed the Fibroscan report and associated tracings. The calculated Liver Stiffness Measurement (LSM, kPa) indicates that: The probability of advanced liver fibrosis is: very high and the probability of complications of portal hypertension is also high. The loss of ultrasound signal, (controlled attenuation parameter, CAP [dB/m]), indicates that the probability of hepatic steatosis is: low. Gen Malloy MD The following criteria are used to indicate the probability of advanced (stage 3-4) fibrosis: < 7.0 kPa: low 7.0-8.9 kPa: low to moderate 9.0-14.9 kPa: moderate 15-20 kPa: high > 20 kPa: very high Liver stiffness > 20 kPa is also associated with a high probability of complications of portal hypertension including varices and ascites. Liver stiffness > 50 kPa is associated with a high risk of variceal bleeding. These interpretations are based on the following published data: Low PJ, Jean M, Alexandra M, et al. Accuracy of FibroScan controlled attenuation parameter and liver stiffness measurement in assessing steatosis and fibrosis in patients with nonalcoholic fatty liver disease. Gastroenterology 2019;156:8795-9318. Brittani MS, Mackenzie R, Ta Watts ML, et al. Vibration-controlled transient elastography to assess fibrosis and steatosis in patients with nonalcoholic fatty liver disease. Clin Gastroenterol Hepatol 2019;17:156-163. Note that scores have been developed that incorporate the Fibroscan liver stiffness measurement from large cohorts of patients with liver biopsies to further refine the ability of Fibroscan to identify patients ??with MASH and advanced fibrosis. These include the FAST (Fibroscan-AST) score (Madelyn, 2021) and the Agile3+ and Agile4 scores (Mamie, 202). Madelyn TA, Van Stefanie ML, Shade M, Steve A, et al. Validation of the accuracy of the FAST score for detecting patients with at-risk nonalcoholic steatohepatitis (PIMENTEL) in a [place] cohort and comparison to other non-invasive algorithms. PLoS ONE (2021) 17: [id number]. Mamie AJ, Lee J, Kareen ZM, et al. Enhanced diagnosis of advanced fibrosis and cirrhosis in individuals with NAFLD using FibroScan-based Agile scores. J Hepatol (2022) 78: 247-259. Fibroscan LSM can also be used with laboratory parameters without formulas to assess prognosis. According to the Baveno-VII criteria (Lockwood, 2021), Fibroscan LSM ?15 kPa plus a platelet count of ?729v602/L rules out clinically significant portal hypertension (sensitivity and negative predictive value >90%) in patients with compensated advanced chronic liver disease. Lockwood R, Kailey J, Freddy-Jennie G, Relucy T, Shan C on behalf of the Baveno VII Faculty. Baveno VII--Renewing consensus in portal hypertension. J Hepatol (2021) 76: 959-974 Assessing the likelihood of advanced fibrosis in patients with intermediate liver stiffness measurement (LSM) by Fibroscan (e.g., 8-15 kPa) can be improved by also calculating the FIB-4 score (Veroniqueuke et al. Hepatology Communications 2019;3:5439-2384) or NAFLD Fibrosis score (Handy et al. Clinical Gastroenterology and Hepatology 2019;17:8953-7317 using ??routine clinical data. Note: 1. Fibroscan cannot reliably identify earlier stages of fibrosis (ie distinguish F0 from F1 and F2) and thus a histologic stage cannot be predicted from the Fibroscan reading. 2. Liver stiffness can be increased by factors other than fibrosis including passive congestion, infiltrative processes, active alcoholism, recent moderate alcohol consumption in the 2 weeks before the exam, ??biliary obstruction and marked inflammation. The interpretation of the Fibroscan result provided above may not have taken such clinical factors into account. Disease etiology also influences Fibroscan cutoff values for fibrosis stages and the following cutoffs have been proposed (Kimberly et al, Clin Gastro Hepatol 2015; 13:27-36): Cutoffs for Stage 3 and Stage 4 fibrosis respectively: Hepatitis B: >9 and >11.7 kPa Hepatitis C: >9.5 and >12.5 kPa HCV-HIV: >11 and >14 kPa Cholestatic liver diseases: >10 and >17.9 kPa MASLD/MASH: >10 and >14 kPa CAP estimates of steatosis: normal <200 dB/m mild 200 to 250 dB/m moderate 250-290 dB/m substantial > 290 dB/m (Note that Fibroscan is not a quantitative measure of liver fat.) These criteria are estimates and may change as additional supporting data becomes available. (This additional interpretive data was last updated 10/08/22.) [email or web address] Lazaro Gonzales MD PROCEDURE/MINOR SURG ICAL ORDERABLES * DERMATOPATHOLOGY (01/03/2023 11:11 AM CDT) Only the most recent of5 resultswithin the time period is included. Case Report Dermatopathology Report ? Case: [id number] ? Authorizing Provider: ??Jyotsna Tineo, ?? Collected: ? 01/03/2023 11:11 AM ? Ordering Location: ? [facility] ? Received: ?01/03/2023 03:19 PM ? Pathologist: ? Shaunna Garcia MD ? Specimen: ?Skin, left forearm ? 5:22 PM T DERMATOPATHOLOGY LABORATORY Final Diagnosis Specimen A. SKIN, left forearm: SQUAMOUS CELL CARCINOMA IN SITU (MACIAS'S DISEASE) (D04.62) NOT PRESENT AT MARGIN DERMAL SCAR (L90.5) 5:22 PM T DERMATOPATHOLOGY LABORATORY Clinical History SCCIS BX PROVEN Check margins 5:22 PM T DERMATOPATHOLOGY LABORATORY Gross Description Specimen A: Received is one formalin filled container labeled with the patient's name and designated left forearm. The specimen consists of a non-oriented ellipse of skin measuring 40c68x1 mm. The epidermal surface is unremarkable. The margin is inked green. The 12 o'clock and 6 o'clock tips are submitted in cassette 1. The remainder of the ellipse is serially sectioned and submitted in cassette 2-3. Jar 0. 5:22 PM T DERMATOPATHOLOGY LABORATORY Microscopic Description Specimen A. SKIN, [...] perpendicular to the skin surface. 5:22 PM T DERMATOPATHOLOGY LABORATORY Disclaimer An external and internal positive and negative controls are appropriate for the histochemical, immunohistochemical and immunofluorescence stain(s) in this case (if any), except where stated explicitly. The performance characteristics of the stain(s) cited in this report were developed and its performance characteristic determined by the Dermatopathology Laboratory at [facility], directed by Dr. Blair Garcia. These tests need not be, and therefore are not, approved by the [place] Food and Drug Administration. The tests are used for clinical purposes. Billing Codes Specimen Charges Stain Charges 55236 1 3 5:22 PM CDT DERMATOPATHOLOGY LABORATORY Embedded Images 3 5:22 PM CDT DERMATOPATHOLOGY LABORATORY Pathology/Cytolo gy TISSUE SPECIMEN FROM SKIN / Unknown 01/03/2023 11:11 AM CDT 01/03/2023 3:19 PM CDT Jyotsna Tineo DO LAB - PATHOLOGY/C YTOLOGY ORDERABLES DERMATOPATHOLOGY LABORATORY [facility] - Department of Dermatology [address], [address] [phone] * (ABNORMAL) HEMOGLOBIN A1C (03/30/2015 12:13 PM CDT) Only the most recent of5 resultswithin the time period is included. Hemoglobin A1c 7.4(H) 4.2 - 5.8 % 03/30/2015 10:32 PM CDT [facility] Estimated Average Glucose 166 mg/dL 03/30/2015 10:32 PM CDT [facility] Whole Blood BLOOD SPECIMEN WITH EDTA / Unknown Venipuncture / Unknown 03/30/2015 12:13 PM CDT 03/30/2015 12:21 PM CDT Narrative [facility] - 03/30/2015 10:32 PM CDT ? [place] [employer] recommended the following cutoff levels: [...] Provider Unlisted LAB - CHEM ISTRY ORDERABLES [facility] [address] * (ABNORMAL) BASIC METABOLIC PANEL (CALCIUM TOTAL) (03/30/2015 12:13 PM CDT) Only the most recent of5 resultswithin the time period is included. Pathologist [facility] Glucose 151(H) 70 - 125 mg/dL 03/30/2015 12:47 PM CDT [facility] Sodium 138 136 - 145 mmol/L 03/30/2015 12:47 PM CDT [facility] Potassium 4.2 3.4 - 4.5 mmol/L 03/30/2015 12:47 PM CDT [facility] Chloride 102 98 - 107 mmol/L 03/30/2015 12:47 PM CDT [facility] CO2 28 22 - 29 mmol/L 03/30/2015 12:47 PM CDT [facility] Calcium 9.57 8.4 - 10.2 mg/dL 03/30/2015 12:47 PM CDT [facility] Anion Gap 12 10 - 20 mmol/L 03/30/2015 12:47 PM CDT [facility] BUN 11.9 9.8 - 20.1 mg/dL 03/30/2015 12:47 PM CDT [facility] Creatinine 0.67 0.57 - 1.11 mg/dL 03/30/2015 12:47 PM CDT [facility] eGFR by MDRD >60 >60 mL/min/1.7 3m2 03/30/2015 12:47 PM CDT [facility] eGFR by MDRD >60 >60 mL/min/1.7 3m2 03/30/2015 12:47 PM CDT [facility] Blood BLOOD SPECIMEN / Unknown Venipuncture / Unknown 03/30/2015 12:13 PM CDT 03/30/2015 12:21 PM CDT Ordering Provider Unlisted LAB - CHEM ISTRY ORDERABLES [facility] [address] * ALT (03/30/2015 12:13 PM CDT) Only the most recent of5 resultswithin the time period is included. Pathologist [facility] ALT 30 5 - 55 U/L 03/30/2015 12:47 PM CDT [facility] Blood BLOOD SPECIMEN / Unknown Venipuncture / Unknown 03/30/2015 12:13 PM CDT 03/30/2015 12:21 PM CDT Ordering Provider Unlisted MD LAB - CHEM ISTRY ORDERABLES Performing Organization Address [facility] Co de Phone Number [facility] [address] * (ABNORMAL) LIPID PROFILE (03/30/2015 12:13 PM CDT) Only the most recent of3 resultswithin the time period is included. Pathologist [facility] Cholesterol 146 <200 mg/dL 03/30/2015 12:46 PM CDT [facility] Triglycerides 150(H) <150 mg/dL 03/30/2015 12:46 PM CDT [facility] HDL Cholesterol 34(L) >40 mg/dL 03/30/2015 12:46 PM CDT [facility] Chol HDL Ratio 4.3 1.0 - 6.0 03/30/2015 12:46 PM CDT [facility] LDL Calculated 82 65 - 130 mg/dL 03/30/2015 12:46 PM CDT [facility] VLDL Calculated 30 10 - 40 mg/dL 03/30/2015 12:46 PM CDT [facility] Blood BLOOD SPECIMEN / Unknown Venipuncture / Unknown 03/30/2015 12:13 PM CDT 03/30/2015 12:21 PM CDT Narrative [facility] - 03/30/2015 12:46 PM CDT Lipid Profile Comment: CHOLESTEROL LEVEL..................CLINICAL INTERPRETATION LESS THAN 200 MG/DL..............................DESIRABLE 200-239 MG/DL..............................BORDERLINE HIGH GREATER THAN 240 MG/DL................................HIGH LDL-CHOLESTEROL LEVEL..............CLINICAL INTERPRETATION LESS THAN 100 MG/DL................................OPTIMAL 100-129 MG/DL.................................NEAR OPTIMAL GREATER THAN 160 MG/DL...........................HIGH RISK HDL RISK LEVEL GREATER THEN 60 MG/DL............................DECREASED 40-60 MG/DL........................................AVERAGE LESS THAN 40 MG/DL...............................INCREASED TRIGLYCERIDE LEVEL..................CLINICAL INTERPRETATION LESS THAN 150 MG/DL...............................DESIRABLE 150-199 MG/DL...............................BORDERLINE HIGH 200-499 MG/DL..........................................HIGH GREATER THAN 500..................................VERY HIGH THE NATIONAL CHOLESTEROL EDUCATION PROGRAM HAS SET THE ABOVE GUIDELINES (REFERANCE VALUES) FOR CHOLESTEROL AND HDL. RISK ASSOCIATED WITH CHOLESTEROL/HDL RATIOS RISK....................MALE RATIO.............FEMALE RATIO 1/2 AVERAGE.................<3.4.......................<3.3 LOW RISK.................... 4.0 ...................... 3.8 AVERAGE..................... 5.0 ...................... 4.5 2X AVERAGE.................. 9.5 ...................... 7.0 3X AVERAGE...................>23........................>11 Ordering Provider Unlisted LAB - CHEM ISTRY ORDERABLES Performing Organization Address City/State/[facility] Co de Phone Number [place] [phone] * CARDIAC RHYTHM STRIP ORDER (08/12/2014 10:27 AM CDT) Narrative 08/12/2014 10:27 AM CDT Ordered by an unspecified provider. Scanned Document CARDIAC SERVICES ORD ERABLES * (ABNORMAL) GLUCOSE - POINT OF CARE (08/06/2014 11:32 AM BUILDINGS AND GROUNDS COORDINATOR) Only the most recent of6 resultswithin the time period is included. Glucose WB/POC 251(H) 70 - 125 mg/dL 08/06/2014 1:41 PM BUILDINGS AND GROUNDS COORDINATOR [facility] Blood BLOOD SPECIMEN / Unknown 08/06/2014 11:32 AM BUILDINGS AND GROUNDS COORDINATOR 08/06/2014 1:41 PM BUILDINGS AND GROUNDS COORDINATOR Narrative [facility] - 08/06/2014 1:41 PM BUILDINGS AND GROUNDS COORDINATOR NOTIFIED CAREGIVER Francisca العراقي MD LAB - POINT OF CA RE ORDERABLES [facility] [address] [place], [place] [address] * NM MYOCARD PERFUSION SPECT STRESS AND REST (08/06/2014 11:24 AM BUILDINGS AND GROUNDS COORDINATOR) Anatomical Region Laterality Modality Chest Nuclear Medicine 08/06/2014 3:37 PM BUILDINGS AND GROUNDS COORDINATOR Impressions 08/06/2014 6:21 PM BUILDINGS AND GROUNDS COORDINATOR Mild myocardial ischemia felt to be present at the anterior wall and apex. No areas of myocardial infarction or additional areas of myocardial ischemia. Calculated LVEF of 82%. Phone call made to Luh Suri informing her of preliminary report available in [employer] at ?hours on 08/06/2014. Narrative 08/06/2014 6:21 PM BUILDINGS AND GROUNDS COORDINATOR GATED STRESS/REST SPECT MYOCARDIAL PERFUSION SCAN WITH WALL MOTION ANALYSIS AND LEFT VENTRICULAR EJECTION FRACTION 08/06/2014: HISTORY: Chest tightness. FINDINGS: Gamma camera imaging of the precordium performed in multiple projections at stress and at rest. Rest phase of study performed following injection of 11.1 mCi Tc 99m Cardiolite. Gated myocardial perfusion stress imaging performed following injection of 30.3 mCi Tc 99m Cardiolite following induction of pharmacologic stress under the supervision of Dr. Keyes with intravenous injection of 0.4 mg Lexiscan. SPECT images generated in short axis, vertical long axis, and horizontal long axis at stress and at rest. No apparent left ventricular cavity dilatation or focal shape distortion identified. There is slight increased activity at rest relative to stress at the anterior wall and the apex consistent with mild anterior wall and apical myocardial ischemia. No areas of myocardial infarction or additional areas of myocardial ischemia noted. Normal left ventricular wall motion with calculated LVEF of 82%. Procedure Note Gregory Smith MD - 08/06/2014 GATED STRESS/REST SPECT MYOCARDIAL PERFUSION SCAN WITH WALL MOTION ANALYSIS AND LEFT VENTRICULAR EJECTION FRACTION 08/06/2014: HISTORY: Chest tightness. FINDINGS: Gamma camera imaging of the precordium performed in multiple projections at stress and at rest. Rest phase of study performed following injection of 11.1 mCi Tc 99m Cardiolite. Gated myocardial perfusion stress imaging performed following injection of 30.3 mCi Tc 99m Cardiolite following induction of pharmacologic stress under the supervision of Dr. Keyes with intravenous injection of 0.4 mg Lexiscan. SPECT images generated in short axis, vertical long axis, and horizontal long axis at stress and at rest. No apparent left ventricular cavity dilatation or focal shape distortion identified. There is slight increased activity at rest relative to stress at the anterior wall and the apex consistent with mild anterior wall and apical myocardial ischemia. No areas of myocardial infarction or additional areas of myocardial ischemia noted. Normal left ventricular wall motion with calculated LVEF of 82%. IMPRESSION Mild myocardial ischemia felt to be present at the anterior wall and apex. No areas of myocardial infarction or additional areas of myocardial ischemia. Calculated LVEF of 82%. Phone call made to Luh Mccord informing her of preliminary report available in [employer] at hours on 08/06/2014. Francisca العراقي MD NM ORDERABLES * US BREAST LEFT LTD (08/06/2014 8:00 AM BUILDINGS AND GROUNDS COORDINATOR) Anatomical Region Laterality Modality Breast Left Ultrasound 08/06/2014 9:33 AM BUILDINGS AND GROUNDS COORDINATOR Impressions 08/07/2014 5:09 PM BUILDINGS AND GROUNDS COORDINATOR Hypoechoic lesion at lower-outer quadrant of left breast with internal echoes and some posterior acoustical enhancement with etiology uncertain. Comparison with known outside studies necessary as discussed above. BI-RADS Category 0. Report faxed to the office of Dr. Dk Kong at 12:10 p.m. on 08/07/2014. Call subsequently made to Renate Jin to confirm receipt of report. Narrative 08/07/2014 5:09 PM BUILDINGS AND GROUNDS COORDINATOR LEFT BREAST SONOGRAPHY: (08/06/2014) HISTORY: History of breast cancer with postoperative change noted in left breast at 08/04/2014 CT angiography of chest. 3.7 x 3.3 cm thick-walled hypodense collection in lower-outer quadrant of left breast was noted at CT study. Followup imaging. FINDINGS: No other comparison studies available at this time. Patient has prior mammography and sonography studies of breasts in [place], [place] according to information provided by patient. Hypoechoic area with internal echoes and some posterior acoustical enhancement noted at 4 o'clock position at lower-outer quadrant of left breast approximately 7 cm from nipple with dimensions in range of 2.1 x 3.4 x 5.0 cm. Etiology of this remains uncertain and may be postoperative in nature as mentioned at CT angio chest report. Patient was seen by me immediately following review of images with findings discussed with patient. I suggested that comparison be made with known outside studies. We would be happy to issue comparison report if outside studies are made available. Patient states she is due for mammogram in [place], [place] and plans to take study with her for comparison. Procedure Note Gregory Smith MD - 08/07/2014 LEFT BREAST SONOGRAPHY: (08/06/2014) HISTORY: History of breast cancer with postoperative change noted in left breast at 08/04/2014 CT angiography of chest. 3.7 x 3.3 cm thick-walled hypodense collection in lower-outer quadrant of left breast was noted at CT study. Followup imaging. FINDINGS: No other comparison studies available at this time. Patient has prior mammography and sonography studies of breasts in [place], [place] according to information provided by patient. Hypoechoic area with internal echoes and some posterior acoustical enhancement noted at 4 o'clock position at lower-outer quadrant of left breast approximately 7 cm from nipple with dimensions in range of 2.1 x 3.4 x 5.0 cm. Etiology of this remains uncertain and may be postoperative in nature as mentioned at CT angio chest report. Patient was seen by me immediately following review of images with findings discussed with patient. I suggested that comparison be made with known outside studies. We would be happy to issue comparison report if outside studies are made available. Patient states she is due for mammogram in [place], [place] and plans to take study with her for comparison. IMPRESSION Hypoechoic lesion at lower-outer quadrant of left breast with internal echoes and some posterior acoustical enhancement with etiology uncertain. Comparison with known outside studies necessary as discussed above. BI-RADS Category 0. Report faxed to the office of Dr. Dk Kong at 12:10 p.m. on 08/07/2014. Call subsequently made to Renate Jin to confirm receipt of report. Francisca العراقي MD US ORDERABLES * (ABNORMAL) PT-INR (08/06/2014 6:07 AM BUILDINGS AND GROUNDS COORDINATOR) Only the most recent of8 resultswithin the time period is included. PT 20.1(H) 9.6 - 11.5 sec 08/06/2014 6:36 AM BUILDINGS AND GROUNDS COORDINATOR [facility] INR 1.92(L) 2 - 3 08/06/2014 6:36 AM BUILDINGS AND GROUNDS COORDINATOR [facility] Blood BLOOD SPECIMEN / Unknown Lab Venipuncture / Unknown 08/06/2014 6:07 AM BUILDINGS AND GROUNDS COORDINATOR 08/06/2014 6:12 AM BUILDINGS AND GROUNDS COORDINATOR Narrative [facility] - 08/06/2014 6:36 AM BUILDINGS AND GROUNDS COORDINATOR Recommended therapeutic INR ranges for Oral Anticoagulant Therapy: ??2.0-3.0 For prevention of Thrombosis or Embolism and treatment of Venous Thrombosis. 2.5- 3.5 for prevention of Recurrent Embolism or treatment of patients with Mechanical Prosthetic Heart Valves. Arley Ng MD LAB - COAGULATION OR DERABLES [facility] [address] * PHOSPHORUS BLOOD (08/06/2014 6:07 AM BUILDINGS AND GROUNDS COORDINATOR) Phosphorus 3.82 2.3 - 4.7 mg/dL 08/06/2014 7:08 AM [facility] Blood BLOOD SPECIMEN / Unknown Lab Venipuncture / Unknown 08/06/2014 6:07 AM BUILDINGS AND GROUNDS COORDINATOR 08/06/2014 6:13 AM BUILDINGS AND GROUNDS COORDINATOR Francisca العراقي MD LAB - CHEMISTRY O RDERABLES [facility] [address] * (ABNORMAL) MAGNESIUM BLOOD (08/06/2014 6:07 AM BUILDINGS AND GROUNDS COORDINATOR) Magnesium 1.4(L) 1.6 - 2.6 mg/dL 08/06/2014 7:08 AM BUILDINGS AND GROUNDS COORDINATOR [facility] Blood BLOOD SPECIMEN / Unknown Lab Venipuncture / Unknown 08/06/2014 6:07 AM BUILDINGS AND GROUNDS COORDINATOR 08/06/2014 6:13 AM BUILDINGS AND GROUNDS COORDINATOR Francisca العراقي MD LAB - CHEMISTRY O RDERAAUTUMN Performing Organization Address [facility] de Phone Number [facility] [address] * TROPONIN I (08/05/2014 5:53 AM BUILDINGS AND GROUNDS COORDINATOR) Only the most recent of6 resultswithin the time period is included. Troponin I <0.012 <=0.049 ng/mL 08/05/2014 7:44 AM BUILDINGS AND GROUNDS COORDINATOR [facility] Blood BLOOD SPECIMEN / Unknown Lab Venipuncture / Unknown 08/05/2014 5:53 AM BUILDINGS AND GROUNDS COORDINATOR 08/05/2014 6:56 AM BUILDINGS AND GROUNDS COORDINATOR Narrative [facility] - 08/05/2014 7:44 AM BUILDINGS AND GROUNDS COORDINATOR Note: Diagnosis of myocardial infarction requires symptoms of ischemia or EKG changes of ischemia and TNI >99th percentile of normal with <10% CV (0.05 ng/mL) Troponin should be drawn on initial assessment and 3-6 hours later as clinically indicated. Any condition resulting in myocardial cell damage can increase cardiac troponin levels. In addition to myocardial infarction, these include but are not limited to CHF, arrhythmia, myocarditis, and non-cardiac related causes such as pulmonary embolism, renal failure and sepsis. Arley Ng MD LAB - CHEMISTRY DEBBI KHAN Performing Organization Address [facility] de Phone Number [facility] [address] * LIPASE BLOOD (08/05/2014 5:53 AM BUILDINGS AND GROUNDS COORDINATOR) Lipase 9 8 - 78 U/L 08/05/2014 7:37 AM BUILDINGS AND GROUNDS COORDINATOR [facility] Blood BLOOD SPECIMEN / Unknown Lab Venipuncture / Unknown 08/05/2014 5:53 AM BUILDINGS AND GROUNDS COORDINATOR 08/05/2014 6:56 AM BUILDINGS AND GROUNDS COORDINATOR Arley Ng MD LAB - CHEMISTRY DEBBI KHAN Performing Organization Address City/[facility]/ZIP Co de Phone Number [facility] [address] * TSH (08/05/2014 5:53 AM BUILDINGS AND GROUNDS COORDINATOR) Pathologist [facility] TSH 1.0360 0.35 - 4.94 uIU/mL 08/05/2014 8:07 AM BUILDINGS AND GROUNDS COORDINATOR [facility] Blood BLOOD SPECIMEN / Unknown Lab Venipuncture / Unknown 08/05/2014 5:53 AM BUILDINGS AND GROUNDS COORDINATOR 08/05/2014 6:56 AM BUILDINGS AND GROUNDS COORDINATOR Arley Ng MD LAB - CHEMISTRY DEBBI KHAN Performing Organization Address [facility] de Phone Number [facility] [address] * EKG 12-LEAD (08/05/2014 12:48 AM BUILDINGS AND GROUNDS COORDINATOR) Only the most recent of5 resultswithin the time period is included. Pathologist [facility] Ventricular Rate 69 BPM [facility] Atrial Rate 69 BPM [facility] P-R Interval 170 ms [facility] QRS Duration ms 78 ms [facility] Q-T Interval ms 446 ms [facility] QTC Calculation (Bezet) 477 ms [facility] Calculated P [place] 53 degrees [facility] Calculated R [place] -25 degrees [facility] Calculated T [place] 9 degrees [facility] Interpretation EKG Normal sinus rhythm Possible Inferior infarct , age undetermined Nonspecific T wave abnormality Anterolateral leads Abnormal ECG When compared with ECG of 04-AUG-2014 19:14, (Unconfirmed) Nonspecific T wave abnormality, worse in Anterolateral leads Confirmed by Sergio LAI, Carlos ([id number]) on 08/06/2014 3:22:34 PM [facility] 08/05/2014 12:4 8 AM BUILDINGS AND GROUNDS COORDINATOR 08/06/2014 3:22 PM BUILDINGS AND GROUNDS COORDINATOR Arley Ng MD ECG ORDERABLES Performing Organization Address City/[facility]/ZIP Co de Phone Number [facility] * URINALYSIS ROUTINE W/REFLEX TO CULTURE (08/05/2014 12:11 AM BUILDINGS AND GROUNDS COORDINATOR) Pathologist [facility] Color UA Yellow 08/05/2014 12:25 AM [facility] Clarity UA Clear 08/05/2014 12:25 AM [facility] Glucose UA Negative Negative 08/05/2014 12:25 AM [facility] Bilirubin UA Negative Negative 08/05/2014 12:25 AM [facility] Ketone UA Negative Negative 08/05/2014 12:25 AM [facility] Specific [place] UA 1.010 1.005 - 1.030 08/05/2014 12:25 AM [facility] pH UA 5.5 5.0 - 8.0 pH 08/05/2014 12:25 AM [facility] Protein UA Negative Negative 08/05/2014 12:25 AM [facility] Urobilinogen UA 0.2 0.2 - 1.0 EU/dL 08/05/2014 12:25 AM [facility] Nitrite UA Negative Negative 08/05/2014 12:25 AM [facility] Blood UA Negative Negative 08/05/2014 12:25 AM [facility] Leukocyte UA Negative Negative 08/05/2014 12:25 AM [facility] Urine Microscopy Urine microscopy not indicated 08/05/2014 12:25 AM [facility] Reflex Status Culture not indicated 08/05/2014 12:25 AM [facility] Urine URINE SPECIMEN OBTAINED BY CLEAN CATCH PROCEDURE / Unknown 08/05/2014 12:11 AM BUILDINGS AND GROUNDS COORDINATOR 08/05/2014 12:19 AM [facility] [[email or web address]] Arley Ng MD LAB - URINALYSIS ORD ERABLES [facility] 1 [place], [place] [address] [place] [address] * ECHOCARDIOGRAM 2D WITH DOPPLER (08/05/2014 12:00 AM BUILDINGS AND GROUNDS COORDINATOR) 08/05/2014 Narrative [facility] - 08/05/2014 8:[address] [facility] 1 [place] [address] Transthoracic Echocardiogram 2D, M-mode, Doppler, and Color Doppler Patient: JACKIE LANDIN MR #: [id number] : 1945 Age: 69 years Gender: Female Study date: 05-Aug-2014 Status: Outpatient Room: [facility] HR: 70 bpm Height: 62 in Weight: 197.6 lb BSA: 1.9 m?? BP: 125/ 58 Ordering Physician: ??Gerhard [facility] Hospitalist Referring Physician: ??Unlisted Academic Computing Director: ??Gerhard [facility] Heart and Vascular Academic Computing Director: ??Carlos Hill MD Agricultural Pilot: ??Alejandra Negron [facility] Summary: - ??Left ventricle: Systolic function was normal. Ejection fraction was estimated to be 60 %. - ??Right ventricle: The ventricle was mildly dilated. Systolic pressure was mildly increased. Estimated peak pressure was 34 mmHg. - ??Tricuspid valve: There was mild to moderate regurgitation. Procedure: The procedure was performed at the bedside. This was a routine study. Left ventricle: Size was normal. Systolic function was normal. Ejection fraction was estimated to be 60 %. There were no regional wall motion abnormalities. Wall thickness was normal. Doppler: Left ventricular diastolic function parameters were normal. Aortic valve: The valve was trileaflet. Leaflets exhibited mild calcification and normal cuspal separation. Doppler: There was no stenosis. There was no aortic valve regurgitation. Aorta: The root exhibited normal size. Mitral valve: There was mild thickening. There was normal leaflet separation. Doppler: There was no evidence for stenosis. There was trace regurgitation. Left atrium: Size was normal. Pulmonary veins: Doppler: Doppler flow pattern was normal in the pulmonary vein(s). Right ventricle: The ventricle was mildly dilated. Doppler: Systolic pressure was mildly increased. Estimated peak pressure was 34 mmHg. Pulmonic valve: Leaflets exhibited no calcification and normal cuspal separation. Doppler: The transpulmonic velocity was within the normal range. There was trace regurgitation. Tricuspid valve: There was normal leaflet separation. Doppler: There was no evidence for tricuspid stenosis. There was mild to moderate regurgitation. Right atrium: Size was normal. Systemic veins: IVC: The inferior vena cava was dilated. Respirophasic changes were normal. Pericardium: There was no pericardial effusion. System measurement tables 2D mode AoR Diam: 2.7 cm Asc Aorta Diam: 3.5 cm LA Dimension (2D): 3.6 cm EF (2D-Cubed): 83.1 % FS (2D): 44.7 % IVS/LVPW (2D): 1.18 IVSd (2D): 1.19 cm LVIDd (2D): 4.25 cm LVIDs (2D): 2.35 cm LVOT Area (2D): 3.14 cm2 LVPWd (2D): 1.01 cm Tissue Doppler Imaging Lateral E': 10 cm/s Medial E': 8.48 cm/s Unspecified Scan Mode AV Peak Gradient: 11 mm[Hg] AV Peak Reynold: 168 cm/s NATALYA Peak Reynold: 2.02 cm2 IVRT: 63 ms LVOT Diam: 1.9 cm LVOT Peak Gradient: 5 mm[Hg] LVOT Peak Reynold: 108 cm/s LVOT Vmax: 104 cm/s Lateral E/E': 11.2 Medial E/E': 13.2 MV Decel Time: 135 ms MV E/A: 1.5 MV Peak A Reynold: 76.5 cm/s MV Peak E Reynold: 112 cm/s TR Peak Gradient: 26 mm[Hg] TR Peak Reynold: 255 cm/s LA Volume Index: 23.1 ml/m2 All images and data generated for this procedure were personally reviewed by me. Prepared and Electronically Authenticated Carlos Hill MD 05-Aug-2014 20:07:43 Procedure Note Unknown, Provider - 08/05/[address] [address] Transthoracic Echocardiogram 2D, M-mode, Doppler, and Color Doppler Patient: JACKIE LANDIN MR #: [id number] : 1945 Age: 69 years Gender: Female Study date: 05-Aug-2014 Status: Outpatient Room: [facility] HR: 70 bpm Height: 62 in Weight: 197.6 lb BSA: 1.9 m?? BP: 125/ 58 Ordering Physician: [facility] Hospitalist Referring Physician: Unlisted Academic Computing Director: [facility] Academic Computing Director: Carlos Hill MD Agricultural Pilot: Alejandra Negron RDCS Summary: - Left ventricle: Systolic function was normal. Ejection fraction was estimated to be 60 %. - Right ventricle: The ventricle was mildly dilated. Systolic pressurewas mildly increased. Estimated peak pressure was 34 mmHg. - Tricuspid valve: There was mild to moderate regurgitation. Procedure: The procedure was performed at the bedside. This was a routine study. Left ventricle: Size was normal. Systolic function was normal. Ejection fraction was estimated to be 60 %. There were no regional wall motion abnormalities. Wall thickness was normal. Doppler: Left ventriculardiastolic function parameters were normal. Aortic valve: The valve was trileaflet. Leaflets exhibited mildcalcification and normal cuspal separation. Doppler: There was no stenosis. There was no aortic valve regurgitation. Aorta: The root exhibited normal size. Mitral valve: There was mild thickening. There was normal leafletseparation. Doppler: There was no evidence for stenosis. There was traceregurgitation. Left atrium: Size was normal. Pulmonary veins: Doppler: Doppler flow pattern was normal in the pulmonary vein(s). Right ventricle: The ventricle was mildly dilated. Doppler: Systolicpressure was mildly increased. Estimated peak pressure was 34 mmHg. Pulmonic valve: Leaflets exhibited no calcification and normal cuspal separation. Doppler: The transpulmonic velocity was within the normalrange. There was trace regurgitation. Tricuspid valve: There was normal leaflet separation. Doppler: There wasno evidence for tricuspid stenosis. There was mild to moderateregurgitation. Right atrium: Size was normal. Systemic veins: IVC: The inferior vena cava was dilated. Respirophasicchanges were normal. Pericardium: There was no pericardial effusion. System measurement tables 2D mode AoR Diam: 2.7 cm Asc Aorta Diam: 3.5 cm LA Dimension (2D): 3.6 cm EF (2D-Cubed): 83.1 % FS (2D): 44.7 % IVS/LVPW (2D): 1.18 IVSd (2D): 1.19 cm LVIDd (2D): 4.25 cm LVIDs (2D): 2.35 cm LVOT Area (2D): 3.14 cm2 LVPWd (2D): 1.01 cm Tissue Doppler Imaging Lateral E': 10 cm/s Medial E': 8.48 cm/s Unspecified Scan Mode AV Peak Gradient: 11 mm[Hg] AV Peak Reynold: 168 cm/s NATALYA Peak Reynold: 2.02 cm2 IVRT: 63 ms LVOT Diam: 1.9 cm LVOT Peak Gradient: 5 mm[Hg] LVOT Peak Reynold: 108 cm/s LVOT Vmax: 104 cm/s Lateral E/E': 11.2 Medial E/E': 13.2 MV Decel Time: 135 ms MV E/A: 1.5 MV Peak A Reynold: 76.5 cm/s MV Peak E Reynold: 112 cm/s TR Peak Gradient: 26 mm[Hg] TR Peak Reynold: 255 cm/s LA Volume Index: 23.1 ml/m2 All images and data generated for this procedure were personally reviewedby wi. Prepared and Electronically Authenticated Carlos Hill MD 05-Aug-2014 20:07:43 Francisca العراقي MD ECHO ORDERABLES [facility] * CT ANGIO CHEST WITH OR WO CONTRAST [id number] (08/04/2014 7:30 PM BUILDINGS AND GROUNDS COORDINATOR) Anatomical Region Laterality Modality Chest Computed Tomogra phy 08/04/2014 8:06 PM BUILDINGS AND GROUNDS COORDINATOR Impressions 08/04/2014 9:07 PM BUILDINGS AND GROUNDS COORDINATOR 1. No evidence of pulmonary embolism or aortic dissection. Technically adequate study. 2. Scattered arterial calcification with mild ectasia of ascending thoracic aorta. Moderate coronary artery calcification. Mild cardiomegaly without pericardial effusion. 3. Slight fibrosis in both lungs. Mild linear scarring or atelectasis in the lingula. No consolidation or pleural effusion. No pneumothorax. 4. Postoperative changes left breast with surgical clips in left axilla. Approximately 3.7 x 3.3 cm thick-walled hypodense collection lower-outer quadrant left breast, which may be postoperative in nature related to seroma/hematoma. Abscess considered less likely though clinical correlation needed. No lymphadenopathy, otherwise localized fluid collections. 5. Moderate degenerative change in thoracic spine. No sclerotic skeletal metastases. Moderate diffuse fatty infiltration of liver with mild hepatomegaly. Liver not fully included on this study. Approximately 1.2 x 1.1 cm hypodense nodule, left adrenal gland, which may represent adenoma though indeterminate. Correlation with noncontrast CT abdomen could be performed in further characterization. Slightly prominent lymph nodes in the portacaval and peripancreatic region, which may be chronic in nature though indeterminate on this study. Call made to Jackie Rudd, nursing unit coordinator in the Emergency Department, who confirmed report available for review in [facility] at 2022 hours on 08/04/2014 with information given to provider. Narrative 08/04/2014 9:07 PM BUILDINGS AND GROUNDS COORDINATOR CT ANGIOGRAPHY CHEST WITH INTRAVENOUS CONTRAST MATERIAL 08/04/2014: HISTORY: Chest pain. Back pain. Breast carcinoma. COMPARISON: Portable chest radiograph 08/04/2014. CONTRAST: 78 mL Omnipaque 300 IV. Procedure Note Kym Smith MD - 08/04/2014 CT ANGIOGRAPHY CHEST WITH INTRAVENOUS CONTRAST MATERIAL 08/04/2014: HISTORY: Chest pain. Back pain. Breast carcinoma. COMPARISON: Portable chest radiograph 08/04/2014. CONTRAST: 78 mL Omnipaque 300 IV. IMPRESSION 1. No evidence of pulmonary embolism or aortic dissection. Technically adequate study. 2. Scattered arterial calcification with mild ectasia of ascending thoracic aorta. Moderate coronary artery calcification. Mild cardiomegaly without pericardial effusion. 3. Slight fibrosis in both lungs. Mild linear scarring or atelectasis in the lingula. No consolidation or pleural effusion. No pneumothorax. 4. Postoperative changes left breast with surgical clips in left axilla. Approximately 3.7 x 3.3 cm thick-walled hypodense collection lower-outer quadrant left breast, which may be postoperative in nature related to seroma/hematoma. Abscess considered less likely though clinical correlation needed. No lymphadenopathy, otherwise localized fluid collections. 5. Moderate degenerative change in thoracic spine. No sclerotic skeletal metastases. Moderate diffuse fatty infiltration of liver with mild hepatomegaly. Liver not fully included on this study. Approximately 1.2 x 1.1 cm hypodense nodule, left adrenal gland, which may represent adenoma though indeterminate. Correlation with noncontrast CT abdomen could be performed in further characterization. Slightly prominent lymph nodes in the portacaval and peripancreatic region, which may be chronic in nature though indeterminate on this study. Call made to Jackie Rudd, nursing unit coordinator in the Emergency Department, who confirmed report available for review in [facility] at 2023 hours on 08/04/2014 with information given to provider. Chato Stoll MD CT ORDERABLES * XR CHEST 1VW PORTABLE (08/04/2014 5:37 PM BUILDINGS AND GROUNDS COORDINATOR) Only the most recent of2 resultswithin the time period is included. Anatomical Region Laterality Modality Chest Radiographic Gabriela ging 08/04/2014 6:00 PM BUILDINGS AND GROUNDS COORDINATOR Impressions 08/04/2014 9:07 PM BUILDINGS AND GROUNDS COORDINATOR 1. No gross acute cardiopulmonary disease. Chest appearance similar to 01/21/2014. 2. Mild cardiomegaly. Mild atherosclerotic aorta. No CHF. 3. No consolidation or large pleural effusion. No apparent pneumothorax. Old granulomatous disease. Narrative 08/04/2014 9:07 PM BUILDINGS AND GROUNDS COORDINATOR PORTABLE CHEST RADIOGRAPH 08/04/2014: HISTORY: Shortness of breath. COMPARISON: 01/21/2014. Procedure Note Kym Smith MD - 08/04/2014 PORTABLE CHEST RADIOGRAPH 08/04/2014: HISTORY: Shortness of breath. COMPARISON: 01/21/2014. IMPRESSION 1. No gross acute cardiopulmonary disease. Chest appearance similar to 01/21/2014. 2. Mild cardiomegaly. Mild atherosclerotic aorta. No CHF. 3. No consolidation or large pleural effusion. No apparent pneumothorax. Old granulomatous disease. Chato Stoll MD DIAGNOSTIC IMAGING O RDERABLES * LDL CHOLESTEROL (07/03/2014 12:39 PM BUILDINGS AND GROUNDS COORDINATOR) Only the most recent of3 resultswithin the time period is included. LDL Direct 106 0 - 129 mg/dL 07/04/2014 11:50 AM [facility] ([facility]) Comment: INTERPRETIVE INFORMATION: LDL Cholesterol, Direct CHD Risk Factors: ??+1 ??Age: Men, ?? 45 years and older ? Women, 55 years and older or premature menopause ?without estrogen therapy ??+1 ??Family history of premature CHD ??+1 ??Current smoking ??+1 ??Hypertension ??+1 ??Diabetes mellitus ??+1 ??Low HDL Cholesterol: ??39 mg/dL or less ??-1 ??High HDL Cholesterol: 60 mg/dL or greater LDL Cholesterol: Therapeutic goal ??99 mg/dL or less if CHD is present(Optional 69 mg/dL or less) 129 mg/dL or less if no CHD and two or more risk factors 159 mg/dL or less if no CHD (Circulation 2004; 110:227-39) Access complete set of age- and/or gender-specific reference intervals for this test in the [facility] Test Directory (Define My Style). Blood specimen (specimen) BLOOD SPECIMEN / Unknown Venipuncture / Unknown 07/03/2014 12:39 PM BUILDINGS AND GROUNDS COORDINATOR 07/03/2014 12:54 PM BUILDINGS AND GROUNDS COORDINATOR Dk Kong MD LAB - CHEMISTRY ORDE RABLES [facility] ([facility]) [address] [place], [place] [address] * MICROALBUMIN URINE RANDOM (03/12/2014 11:04 AM CDT) Only the most recent of2 resultswithin the time period is included. Microalbumin Urine 20.0 0.0 - 20.0 mg/dL 03/12/2014 12:50 PM CDT [facility] Urine URINE / Unknown Venipuncture / Unknown 03/12/2014 11:04 AM CDT 03/12/2014 11:16 AM CDT Dk Kong MD LAB - URINE CHEMISTR Y ORDERABLES Performing Organization Address City/[facility]/ZIP Co de Phone Number [facility] [address] * (ABNORMAL) PT PTT PANEL (01/21/2014 8:31 PM CDT) PT 20.3(H) 9.6 - 11.5 sec 01/21/2014 9:07 PM CDT [facility] INR 1.91(L) 2 - 3 01/21/2014 9:07 PM CDT [facility] PTT 31.5 24.0 - 32.0 sec 01/21/2014 9:07 PM CDT [facility] Blood BLOOD SPECIMEN / Unknown 01/21/2014 8:31 PM CDT 01/21/2014 8:45 PM CDT Narrative [facility] - 01/21/2014 9:07 PM CDT Recommended therapeutic INR ranges for Oral Anticoagulant Therapy: ??2.0-3.0 For prevention of Thrombosis or Embolism and treatment of Venous Thrombosis. 2.5- 3.5 for prevention of Recurrent Embolism or treatment of patients with Mechanical Prosthetic Heart Valves. Brain Medina DO LAB - COAGULATION OR DERABLES [facility] [address] * (ABNORMAL) B-TYPE NATRIURETIC PEPTIDE (01/21/2014 8:31 PM CDT) BNP 134(H) 10 - 100 pg/mL 01/21/2014 9:26 PM CDT [facility] Blood BLOOD SPECIMEN / Unknown 01/21/2014 8:31 PM CDT 01/21/2014 8:45 PM CDT Brain Medina DO LAB - CHEMISTRY ORDE RABLES Performing Organization Address [facility] Co de Phone Number [facility] [address] * MRI BREAST W/WO CONTRAST BILAT (11/10/2011 11:20 AM CDT) Anatomical Region Laterality Modality Breast Bilateral Magnetic Resonan ce 11/10/2011 2:06 PM CDT Narrative 11/10/2011 3:45 PM CDT MRI BILATERAL BREASTS WITH AND WITHOUT CONTRAST COMPUTER ANALYSIS WITH [employer] ON INDEPENDENT WORKSTATION INDICATION: Biopsy proven left breast 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 TECHNIQUE: Precontrast T1 and T2 weighted images with sequential contrast enhanced T1 weighted images of the breast. Standard MIPS were also obtained. ??20 mL of Omniscan was injected intravenously. Analysis was performed with [employer] on independent workstation FINDINGS: Right breast: No abnormal masslike or nonmasslike areas of abnormal enhancement or abnormal kinetics is demonstrated. Conglomerate enlarged presumed lymph node is seen in the right axilla measuring 2.2 X 1.3 cm. This may represent metastatic foci. Left breast: Within the posterior aspect of the left breast slightly lateral and just anterior to the pectoralis muscle there is an intensely enhancing mass measuring at least 4.4 cm AP X 3.0 cm transverse. This would be consistent with patient's known biopsy proven breast cancer. This is situated just 4 mm anterior to the chest wall. Enlarged lymph nodes are seen in the left axilla with one measuring at least 1.6 X 1.1 cm. ASSESSMENT: BI-RADS category 6, biopsy proven left breast cancer. RECOMMENDATION: Appropriate medical and surgical management. Procedure Note Yousuf Harper MD - 11/10/2011 MRI BILATERAL BREASTS WITH AND WITHOUT CONTRAST COMPUTER ANALYSIS WITH [employer] ON INDEPENDENT WORKSTATION INDICATION: Biopsy proven left breast 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 TECHNIQUE: Precontrast T1 and T2 weighted images with sequential contrast enhanced T1 weighted images of the breast. Standard MIPS were also obtained. 20 mL of Omniscan was injected intravenously. Analysis was performed with DYNACAD on independent workstation FINDINGS: Right breast: No abnormal masslike or nonmasslike areas of abnormal enhancement or abnormal kinetics is demonstrated. Conglomerate enlarged presumed lymph node is seen in the right axilla measuring 2.2 X 1.3 cm. This may represent metastatic foci. Left breast: Within the posterior aspect of the left breast slightly lateral and just anterior to the pectoralis muscle there is an intensely enhancing mass measuring at least 4.4 cm AP X 3.0 cm transverse. This would be consistent with patient's known biopsy proven breast cancer. This is situated just 4 mm anterior to the chest wall. Enlarged lymph nodes are seen in the left axilla with one measuring at least 1.6 X 1.1 cm. ASSESSMENT: BI-RADS category 6, biopsy proven left breast cancer. RECOMMENDATION: Appropriate medical and surgical management. Dayanna Olsen DO MR ORDERABLES * BUN+CREATININE BLOOD PNL - POINT OF CARE (11/10/2011 10:13 AM CDT) BUN POCT 14 7 - 17 mg/dL [facility] POCT TESTING Creatinine POCT 0.7 0.7 - 1.2 mg/dL [facility] POCT TESTING QC Verified yes Yes [facility] POC T TESTING Blood specimen (specimen) BLOOD SPECIMEN / Unknown 11/10/2011 10:13 AM CDT Dayanna Olsen DO LAB - POINT OF CARE ORDERABLES [facility] POCT TESTING [address] [address] * GROSS + MICRO EXAM (04/20/2010 8:00 AM BUILDINGS AND GROUNDS COORDINATOR) Result CASE NUMBER [id number] Comment: ORDERING PHYSICIAN ??AISSATOULONA Wan SPECIMEN TYPE ?Mass-Right Middle Finger Date of Surgery ?04/20/2010 1229 Surgeon ?LONA REYEZ SPECIMEN SOURCE ? Mass right middle finger. *Pre Op Dx ? Mass right middle finger. OPERATIVE PROCEDURE Excision mass right middle finger. GROSS DESCRIPTION ? Received without fixative labeled mass right middle finger is a specimen which includes a rubbery bansal mass measuring 2 cm in maximum dimension which has a bansal cut surface focally calcified. Also present in the same container are several smaller fragments of skin and tissue similar to that seen in the mass. Custom Feed Mill Operator portions are submitted for decalcification in A1. Grossed by ? KITTY DAUGHERTY M.D. *MICROSCOPIC EXAM ? Sections of the tissue show a small amount of well formed mature bone. Most of the mass however, is composed of lobulated well differentiated fibrocartilage. Nuclear pleomorphism is fairly mild but occasional double nuclei are seen and some of the nuclei are angulated. The material is being sent to [facility] in consultation. Read by ?KITTY DAUGHERTY M.D. DIAGNOSIS ? 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 *Comment ? The material was sent to [facility] in consultation. Please see the [facility] report and letter signed by Surjit Diaz M.D. RELEASED BY ?KITTY DAUGHERTY MD MISCELLANEOUS SAMPLES / Unknown 04/20/2010 8:00 AM BUILDINGS AND GROUNDS COORDINATOR 04/20/2010 10:58 AM BUILDINGS AND GROUNDS COORDINATOR Historical Provider LAB - PATHOLOGY/C YTOLOGY ORDERABLES Care Teams Healthcare Administration Intern Relationship Specialty Start Date End Date Marie Matias MD [address] [place] [address] Internal Medicine 11/23/21
--- OUTSIDE RECORDS SUMMARY | 2024-07-01 14:46 | XMS_ITS | Clinical Summary ---
Author Organization [facility] Address [address] [place] [address] Care Team Providers Care Ophthalmic Lens Inspector Name Role Phone Parveen Escobar MD Primary Care Provider [phone] Allergies Active Allergy Reactions Criticality Noted Date Comments Adhesive Rash Medium 11/26/2018 Paper tape only pre patient Medications ASCORBIC ACID, VITAMIN C, ORAL Take 1 Tablet by mouth. Active apixaban (ELIQUIS) 5 mg tablet Take 5 mg by mouth. 09/29/2020 Active atorvastatin (LIPITOR) 40 mg tablet TAKE 1 TABLET BY MOUTH DAILY 12/31/2019 Active Blood-Glucose Meter (OneTouch Ultra2 Meter) USE TO TEST THREE TIMES DAILY 08/13/2020 Active polycarbophil calcium (FIBERCON) 625 mg tablet Take 625 mg by mouth. Active dapagliflozin (FARXIGA) 5 mg Tablet Take 5 mg by mouth. Active ferrous sulfate 325 mg (65 mg iron) tablet Take by mouth. Active furosemide (LASIX) 20 mg tablet TAKE 1 TABLET BY MOUTH DAILY 03/05/2020 Active lancets (OneTouch Delica Plus Lancet) 30 gauge 3 (three) times a day 08/13/2020 Active losartan (COZAAR) 25 mg tablet Take 25 mg by mouth. 08/16/2017 Active metFORMIN (GLUCOPHAGE) 500 mg tablet Take 500 mg by mouth. Active metoprolol succinate (TOPROL XL) 25 mg Extended Release 24 hour tablet TAKE ONE-HALF TABLET BY MOUTH DAILY 08/31/2020 Active sotaloL (BETAPACE) 120 mg Tablet Take 120 mg by mouth. 08/31/2020 Active sucralfate (CARAFATE) 1 gram tablet TAKE 1 TABLET BY MOUTH BEFORE MEALS AND AT BEDTIME 10/02/2020 Active tamoxifen (NOLVADEX) 20 mg tablet Take 20 mg by mouth. 07/24/2020 Active coenzyme Q10 200 mg Capsule Take 200 mg by mouth. Active Active Problems Problem Noted Date Diagnosed Date History of breast cancer 10/23/2020 Social History Tobacco Use Types Packs/Day Years Used Date Smoking Tobacco: Never Smokeless Tobacco: Never Comments Unknown Sex and Gender Information Value Date Recorded Sex Assigned at Not on file Legal Sex Female 12:09 PM CDT Gender Identity Not on file Sexual Orientation Not on file Last Filed Vital Signs Vital Sign Reading Time Taken Comments Blood Pressure 141/75 10/15/2020 9:37 AM CDT Pulse - - Temperature - - Respiratory Rate - - Oxygen Saturation - - Inhaled Oxygen Concentration - - Weight 75.8 kg (167 lb) 10/15/2020 9:37 AM CDT Height - - Body Mass Index - - Plan of Treatment Health Maintenance Due Date Last Done Comments DIABETES ANNUAL FOOT EXAM 01/29/1964 DIABETES ANNUAL RETINAL EXAM 01/29/1964 DIABETES MICROALBUMIN ANNUAL SCREEN 01/29/1964 LDL CHOLESTEROL ANNUAL 01/29/1964 DTAP/TDAP/TD VACCINES (1 - Tdap) 1965 PNEUMOCOCCAL VACCINE 65+ YEARS (1 of 2 - PCV) 01/28/19 66 ZOSTER VACCINE (1 of 2) 01/29/1996 OSTEOPOROSIS SCREENING 2011 DIABETES HBA1C Q 6 MONTHS 09/29/2015 03/30/2015 RSV VACCINE (60+ or ) (1 - 1-dose 75+ series) 2021 INFLUENZA VACCINE (#1) 2024 COVID-19 Vaccine (2 - 2023- season) 02/04/202408/2020 Insurance MEDICARE PART A AND B [facility] [id number] Member Subscriber Plan / Payer (Ef fective 2020-Present) Name:Jackie Waddell Relation to Subscriber:Self Name:Jackie Waddell Payer ID:[id number] (NAIC) Group ID:Not on file Type:Supplemental Address: [place] [id number] Care Teams Ophthalmic Lens Inspector Relationship Specialty Start Date End Date Parveen Escobar MD [address] [place] [phone] PCP - General Internal Medicine 10/15/20
[2024-07-01 14:54] LABS: Alanine Aminotransferase 16 U/L (6-35); Alkaline Phosphatase 135 U/L (38-126); Anion Gap 10 mmol/L (4-12); Aspartate Amino Transferase 28 U/L (14-36); Blood Urea Nitrogen 27 mg/dL (7-17); Calcium 8.9 mg/dL (8.4-10.2); Carbon Dioxide 30 mmol/L (22-30); Chloride 100 mmol/L (98-107); Estimated Glomerular Filt Rate 44; Glucose 111 mg/dL (65-110); Iron 60 ug/dL (37-170); Potassium 3.8 mmol/L (3.4-5.0); Sodium 140 mmol/L (137-145)
[2024-07-01 15:06] LABS: Percent Iron Saturation 21 % (20-50)
[2024-07-01 15:10] LABS: Platelet Estimate Decreased (Adequate)
[2024-07-01 15:11] LABS: Hypochromasia 1+; Schistocytes None Seen
[2024-07-01 15:16] LABS: Microalbumin Urine Random 12.7 mg/L (0-16.7)
[2024-07-01 16:03] LABS: Hemoglobin A1C 6.8 % (<5.7)
== END 2024-07-01 14:01 | disposition home or self-care (01) ==
PROVIDERS: PCP Nurse Practitioner Family; Visit Provider Nurse Practitioner Family
DX: J90 Pleural effusion, not elsewhere classified (principal); E78.5 Hyperlipidemia, unspecified; E11.65 Type 2 diabetes mellitus with hyperglycemia; I11.0 Hypertensive heart disease with heart failure; I50.9 Heart failure, unspecified; I25.10 Atherosclerotic heart disease of native coronary artery without angina pectoris; I48.0 Paroxysmal atrial fibrillation; K74.60 Unspecified cirrhosis of liver; D50.8 Other iron deficiency anemias
CPT/HCPCS: 36415; 71046; 80053; 82043; 82728; 83036; 83540; 83550; 85025; 85055

== ENCOUNTER 2024-07-24 12:29 | Outpatient (CLI) | payer MEDICARE, SELFPAY ==
--- NOTE | ~2024-07-24 | MMUS_ITS ---
EXAMINATION: MM diagnostic lucinda LT w david, US breast LT complete HISTORY: Previous lumpectomy and breast reduction surgery. Palpable abnormality centrally in the left breast and axillary tail. TECHNIQUE: Additional 3-D tomosynthesis images of the left breast were performed and synthetic 2-D im ages were generated. CAD analysis was submitted and interpreted. High resolution complete left breast and axillary ultrasound was performed. COMPARISON: Comparison to multiple prior studies sequentially, with oldest reviewed study dated 12/12. BREAST PARENCHYMAL COMPOSITION: Not dense: There are scattered areas of fibroglandular density. FINDINGS: MAMMOGRAPHIC FINDINGS: There is distortion of the left breast with coarse calcifications centered in the upper outer quadran t, consistent with fat necrosis with dystrophic calcification. No suspicious masses or architectural distortion to suggest malignancy. ULTRASOUND: Complete US of all 4 quadrants of the left breast/s and axilla including retroareolar region was revi ewed. There are focal echogenic masses in the left breast at 1:00, 1 cm from the nipple, 3:00 in the subareolar location, 4:00, 7 cm from the nipple and 5:00, 4 cm from the nipple, compatible with calci fications identified by mammography. No axillary masses are identified. IMPRESSION: 1. No evidence for malignancy in the left breast. Benign dystrophic calcifications of the left breast are unchanged. 2. Routine yearly screening mammogram and regular clinical breast examination are recommended. BI-RADS Category 2: Benign finding(s). Reviewed, dictated and finalized at location B. MENTATION MANAGER IMPRESSION: 1. No evidence for malignancy in the left breast. Benign dystrophic calcificati ons of the left breast are unchanged. 2. Routine yearly screening mammogram and regular clinical breast examination a re recommended. BI-RADS Category 2: Benign finding(s).
--- OUTSIDE RECORDS SUMMARY | 2024-07-24 12:33 | XMS_ITS | Encounter Summary ---
Author Organization [facility] Address [address] [place] [address] Care Team Providers Care Hydro Excavation Operator Name Role Phone Marie Matias MD Unavailable [phone] Encounter Details Date Type Department Care Team (Late Contact Info) Description 01/03/2023 Lab Requisition [facility] - DermPath Lab [address] [facility] [place] [address] Jyotsna Tineo, DO [address] [facility] [address]L [place] [address] Social History Tobacco Use Types Packs/Day Years [...] Info) Description 10/08/2024 11:00 AM CDT Appointment [facility] [address] [place] [phone] Lazaro Gonzales MD [address] [place] [phone] 10/08/2024 1:00 PM CDT Office Visit [facility] - GI [address] [facility] [place] [phone] Lazaro Gonzales MD [address] [place] [phone] documented as of this encounter Procedures Procedure Name Priority Date/Time Associated Diagnosis Comments DERMATOPATHOLOGY Routine 01/03/2023 11:1 1 AM CDT documented in this encounter Results * DERMATOPATHOLOGY (01/03/2023 11:11 AM CDT) Case Report Dermatopathology Report Case: [id number] Authorizing Provider: Jyotsna Tineo DO Collected: 01/03/2023 11:11 AM Ordering Location: [facility] DermPath Lab Received: 01/03/2023 03:19 PM Pathologist: Shaunna Garcia MD Specimen: Skin, left forearm 5:22 PM CDT DERMATOPATHOLOGY LABORATORY Final Diagnosis Specimen A. 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 The specimen consists of a non-oriented ellipse of skin measuring 16h55b3 mm. The epidermal surface is unremarkable. The margin is inked green. The 12 o'clock and 6 o'clock tips are submitted in cassette 1. The remainder of the ellipse is serially sectioned and submitted in cassette 2-3. Jar 0. 3 5:22 PM CDT DERMATOPATHOLOGY LABORATORY Microscopic Description Specimen [...] are oriented perpendicular to the skin surface. 3 5:22 PM CDT DERMATOPATHOLOGY LABORATORY Disclaimer An external and internal positive and negative controls are appropriate for the histochemical, immunohistochemical and immunofluorescence stain(s) in this case (if any), except where stated explicitly. The performance characteristics of the stain(s) cited in this report were developed and its performance characteristic determined by the Dermatopathology Laboratory at [facility], directed by Dr. Blair Garcia. These tests need not be, and therefore are not, approved by the [place] Food and Drug Administration. The tests are used for clinical purposes. Billing Codes Specimen Charges Stain Charges 33134 1 3 5:22 PM CDT DERMATOPATHOLOGY LABORATORY Embedded Images 3 5:22 PM CDT DERMATOPATHOLOGY LABORATORY Pathology/Cytolo gy TISSUE SPECIMEN FROM SKIN / Unknown 01/03/2023 11:11 AM CDT 01/03/2023 3:19 PM CDT Jyotsna Tineo DO LAB - PATHOLOGY/C YTOLOGY ORDERABLES DERMATOPATHOLOGY LABORATORY [facility] - Department of Dermatology [facility] Medicine [address] [place] [address], [address] [phone] documented in this encounter Visit Diagnoses Not on filedocumented in this encounter Care Teams Hydro Excavation Operator Relationship Specialty Start Date End Date Marie Matias MD [address] [place] [address] Internal Medicine 11/23/21 documented as of this encounter
--- OUTSIDE RECORDS SUMMARY | 2024-07-24 12:33 | XMS_ITS | Clinical Summary ---
Author Organization [facility] Address [address] [place] [address] Care Team Providers Care Field Map Technician Name Role Phone Parveen Escobar MD Primary Care Provider [phone] Allergies Active Allergy Reactions Criticality Noted Date [...] 02/04/202408/2020 Insurance MEDICARE PART A AND B [facility] [id number] Member Subscriber Plan / Payer (Ef fective 2020-Present) Name:Jackie Waddell Relation to Subscriber:Self Name:Jackie Waddell Payer ID:[id number] (NAIC) Group ID:Not on file Type:Supplemental Address: [place] [id number] Care Teams Field Map Technician Relationship Specialty Start Date End Date Parveen Escobar MD [address] [place] [phone] PCP - General Internal Medicine 10/15/20
--- OUTSIDE RECORDS SUMMARY | 2024-07-24 12:33 | XMS_ITS | Encounter Summary ---
Author Organization [facility] Address [address] [facility] [place] [address] Care Team Providers Care Kindergarten Prep Teacher Name Role Phone Marie Matias MD Unavailable [phone] Encounter Details Date Type Department Care Team (Late Contact Info) Description 11/22/2022 Lab Requisition [facility] - DermPath Lab [address] [facility] [place] [address] Jyotsna Tineo, DO [address] [facility] [address] [place] [address] Social History Tobacco Use Types Packs/Day Years [...] Info) Description 10/08/2024 11:00 AM CDT Appointment [facility] [address] [place] [phone] Lazaro Gonzales MD [address] [place] [phone] 10/08/2024 1:00 PM CDT Office Visit [facility] - GI [address] [facility] [place] [phone] Lazaro Gonzales MD [address] [place] [phone] documented as of this encounter Procedures Procedure Name Priority Date/Time Associated Diagnosis Comments DERMATOPATHOLOGY Routine 11/21/2022 1:39 PM CDT documented in this encounter Results * DERMATOPATHOLOGY (11/21/2022 1:39 PM CDT) Case Report Dermatopathology Report Case: [id number] Authorizing Provider: Jyotsna Tineo DO Collected: 11/21/2022 01:39 PM Ordering Location: [facility] DermPath Lab Received: 11/22/2022 12:49 PM Pathologist: Luh Ross MD Specimen: Skin, left forearm 3 4:14 PM CDT DERMATOPATHOLOGY LABORATORY Final [...] characteristic determined by the Dermatopathology Laboratory at [facility], directed by Dr. Blair Garcia. These tests need not be, and therefore are not, approved by the [place] Food and Drug Administration. The tests are used for clinical purposes. Billing Codes Specimen Charges Stain Charges 57550 1 3 4:14 PM CDT DERMATOPATHOLOGY LABORATORY Embedded Images 3 4:14 PM CDT DERMATOPATHOLOGY LABORATORY Pathology/Cytolo gy TISSUE SPECIMEN FROM SKIN / Unknown 11/21/2022 1:39 PM CDT 11/22/2022 12:49 PM CDT Jyotsna Tineo DO LAB - PATHOLOGY/C YTOLOGY ORDERABLES DERMATOPATHOLOGY LABORATORY [facility] - Department of Dermatology [facility] [address] [phone] documented in this encounter Visit Diagnoses Not on filedocumented in this encounter Care Teams Kindergarten Prep Teacher Relationship Specialty Start Date End Date Marie Matias MD [address] [place] [address] Internal Medicine 11/23/21 documented as of this encounter
--- OUTSIDE RECORDS SUMMARY | 2024-07-24 12:33 | XMS_ITS | Referral Summary ---
Author Organization [facility] [address] [place] [address] Care Team Providers Care Molder Wax Ball Name Role Phone Pinky Louise MD Unavailable [phone] Mackenzie Tobin NP Unavailable [phone] Loki Viramontes MD Unavailable [phone] Frank Moses MD Unavailable [phone] Nicole Sierra NP Primary Care Provider [phone] Encounters Date Type Department Care Team Description 07/18/2024 Telephone [facility] Advanced Medicine 8th [place] [address] [place] [address] Ignacio Obregon MD 07/18/2024 Plan of Care Documentation [facility] Medical Office Bldg 1 OP Physical Therapy [address] [place] [address] [place] [address] 07/18/2024 10:15 AM TERRAZZO LAYER HELPER Therapy [facility] Medical Office Bldg 1 OP Physical Therapy [address] [place] [address] [place] [address] Vesna Lopez, PT Dizziness and giddiness (Primary Dx) 07/11/2024 2:00 PM TERRAZZO LAYER HELPER Office Visit [facility] Advanced Medicine 8th [place] [address] [place] [address] SotoJyotsna trejo NP Longstanding persistent atrial fibrillation (CMS/HCC) ([facility]) (Primary Dx); S/P placement of cardiac pacemaker; Atrial fibrillation with RVR (CMS/HCC) ([facility]) 07/11/2024 1:30 PM TERRAZZO LAYER HELPER Ancillary Procedure [facility] [address] [facility] 8th [place] [address] [place] [address] Sinus node dysfunction (CMS/HCC) ([facility]); Adjustment and management of cardiac pacemaker 07/04/2024 Telephone [facility] Ot[facility]ology [address] [place] [phone] Brie Vincent LPN Order vestibular rehab 07/04/2024 4:15 PM TERRAZZO LAYER HELPER Telemedicine [facility] [address] [place] [phone] Mehul Martinez II, MD Dizziness and giddiness (Primary Dx) 07/04/2024 1:00 PM TERRAZZO LAYER HELPER Procedure visit [facility] [address] [place] [phone] Deanna Galvez Dizziness and giddiness (Primary Dx) 06/20/2024 1:45 PM TERRAZZO LAYER HELPER Procedure visit [facility] [address] [place] [phone] Deanna Galvez Dizziness and giddiness (Primary Dx); Sensorineural hearing loss (SNHL) of both ears; Tinnitus of both ears 06/20/2024 2:00 PM TERRAZZO LAYER HELPER Office Visit [facility] [address] [place] [phone] Mehul Martinez II, MD Sensorineural hearing loss (SNHL) of both ears (Primary Dx); Dizziness and giddiness 05/13/2024 Orders Only [facility] 8th [place] [address] [place] [address] Ignacio Obregon MD 05/01/2024 Telephone [facility] Cardiology [address] [place] [address] Sindhu Patrick NP Med Management from Last 3 Months Allergies Active Allergy [...] 1 tablet (3 mg total) by mouth clay plant treater before breakfast Active aspirin 325 mg tabletIndicati [...] EVERY MORNING 180 tablet 2 4 Active carvediloL (COREG) 25 mg tablet Take 1 tablet (25 mg total) by mouth 2 (two) times a day with meals Active atorvastatin (LIPITOR) 40 mg tablet Take 1 tablet (40 mg total) by mouth daily Active atorvastatin (LIPITOR) 40 mg tablet TAKE 1 TABLET BY MOUTH DAILY 90 tablet 2 4 07/11/19 25 Discontinu ed(Therapy completed) Active Problems Problem Noted Date Diagnosed Date Sensorineural hearing loss (SNHL) of both ears 0 06/20/2024 Dizziness and giddiness 06/20/2024 S/P placement of cardiac pacemaker 10/20/2022 Assessment & Plan (07/11/2024 3:34 PM TERRAZZO LAYER HELPER): -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 as programmed -Lead impedances, sensing, and thresholds are stable -No programming changes -Continue remote monitoring quarterly Assessment & Plan (01/09/2024 4:12 PM CDT): 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 as programmed Lead impedances, sensing, and thresholds are stable No programming changes Continue remote monitoring quarterly Atrial fibrillation ([facility]) 10/11/2022 Sinus node dysfunction ([facility]) 10/10/2022 Assessment & Plan (10/10/2022 7:50 PM CDT): As per above. Chronic kidney disease (CKD), stage IV (severe) ([facility]) 10/10/2022 Assessment & Plan (10/11/2022 11:48 AM CDT): Stable on AM BMP -Avoid renal toxins, renally dose meds DM2 (diabetes mellitus, type 2) 10/10/2022 Assessment & Plan (10/11/2022 11:48 AM CDT): -Continue Jardiance. -Hold her rybelsus -SSI Acute on chronic congestive heart failure, unspecified heart failure type 08/27/2022 Renal mass 06/27/2022 Overview (06/27/2022): Added automatically from request for surgery [id number] A-fib ([facility]) 02/14/2022 Assessment & Plan (10/11/2022 11:47 AM [...] (07/11/2019): Added automatically from request for surgery [id number] Coronary artery disease invo lving [place] coronary artery of [place] heart without angina pectoris 11/19/2018 Angina pectoris, unstable ([facility]) 11/07/2018 Overview (11/07/2018): Added automatically from request for surgery [id number] GI bleed 08/06/2018 Assessment & Plan (08/29/2020 [...] a associated with type 2 diabetes mellitus ([facility]) 07/21/2015 Overview (09/09/2016): Type 2 diabetes mellitus [...] Abnormal stress test Longstanding persistent atrial fibrillation ([facility]) 11/13/2013 Overview (09/09/2016): Paroxysmal atrial fibrillation Assessment & Plan (07/11/2024 3:39 PM TERRAZZO LAYER HELPER): -Persistent AF and bradycardia s/p dual chamber pacemaker 10/10/2022. AV node ablation was diverted at implant due to RV pacing lead variability. -Hospitalized in November 2023 with symptomatic AF RVR -Metoprolol XL increased 100 mg daily, HR improved with rates predominantly <100 bpm. Switched to carvedilol in Apr 2024 due to portal HTN -She is having more AF rates >110 with symptoms of palpitations at times -Normal device function today with stable RV lead impedence since implant -We discussed pursing AV node ablation now that her RV lead has stabilized. She is reluctant and concerned about being pacemaker dependent -Echocardiogram to assess LV function and to determine if she is developing tachycardia induced cardiomyopathy -Beta allan titration limited by BP. Continue coreg 25 mg BID but may need to resume metoprolol for better rate control -S/p Watchman LAAO - continue aspirin daily, no CVA/TIA symptoms Assessment & Plan (01/09/2024 4:16 PM CDT): [...] TTE in 09/2018 w/ G3DD. Home metop XL 12.5, losartan 25, lasix 20. - PCI 2018 w/ 1 stent to LAD. MPI stress 05/2020 w/ EF 72%, fixed apical defect c/w prior PA. Assessment & Plan (08/28/2020 7:53 PM CDT): - TTE in 09/2018 w/ G3DD. Home metop XL 12.5, losartan 25, lasix 20. - PCI 2018 w/ 1 stent to LAD. MPI stress 05/2020 w/ EF 72%, fixed apical defect c/w prior PA. Essential hypertension 09/13/201910/20 Assessment & Plan (02/16/2022 [...] anticoagulation 07/21/201501/03 Overview (09/09/2016): Chronic anticoagulation Immunizations Immunization Administration Dates Next Due Moderna SARS-CoV-2 Monovalent [...] often do you attend chur ch or gnosticist services? Never 08/29/2022 Do you belong to any clubs o r organizations such as quaker groups, unions, fraternal or athletic groups, or [...] place to sleep or slept in a long term (including now)? No 08/29/2022 Personal Safety Answer Date Recorded Have you ever been in or are you currently in a harmful physical or emotional relationship or is someone making you feel afraid or unsafe? Denies 10/10/2022 Comments No Sex and Gender Information Value Date Recorded Sex Assigned at Not on file Legal Sex Female 2:00 AM TERRAZZO LAYER HELPER Gender Identity Not on file Sexual Orientation Not on file Last Filed Vital Signs Vital Sign Reading Time Taken Comments Blood Pressure 106/64 04/22/2024 11:37 AM TERRAZZO LAYER HELPER Pulse 91 07/11/2024 1:22 PM TERRAZZO LAYER HELPER Temperature 36.7 C (98.1 F) 04/14/2023 8:56 AM TERRAZZO LAYER HELPER Respiratory Rate 18 06/20/2024 1:50 PM TERRAZZO LAYER HELPER Oxygen Saturation 95% 07/11/2024 1:22 PM TERRAZZO LAYER HELPER Inhaled Oxygen Concentration - - Weight 73.3 kg (161 lb 9.6 oz) 07/11/2024 1:22 P M TERRAZZO LAYER HELPER Height 157.5 cm (5' 2 ) 07/11/2024 1:22 PM TERRAZZO LAYER HELPER Body Mass Index 29.56 07/11/2024 1:22 PM TERRAZZO LAYER HELPER Plan of Treatment Not on file Medical Devices Implanted Type Area Photography Instructor Device Identifier Shelf Expiration Date Model / Serial / Lot [employer] [id number] System 6-12fr Mvp Venous Closure Vascade - [id number] Implanted:Qt y: 1 on 08/28/2020 by Crow Gramajo MD at [facility] Collagen Left: Femoral [employer] 06/23/2022 [id number] / / [id number] Description:LFV sheath [employer] [id number] System 6-12fr Mvp Venous Closure Vascade - [id number] Implanted:Qt y: 1 on 08/28/2020 by Crow Gramajo MD at [facility] Collagen Right: Femoral [employer] 06/23/2022 [id number] / / [id number] Description:RFV sheath X 1 [employer] Tendril Sts 6fr 52cm Is-1 Connector Active Fixation Bipolar Soft /52 - [id number] - [id number] Implanted:Qt y: 1 on 10/10/2022 by Ignacio Obregon MD at [facility] Lead Right: Ventricle [employer] 08/02/20258TC/52 / [id number] / [employer] Tendril Sts 6fr 46cm Is-1 Connector Bipolar Active Fixation 46 - [id number] - [id number] Implanted:Qt y: 1 on 10/10/2022 by Ignacio Obregon MD at [facility] Lead Right: Atria [employer] 08/02/20252087TC/46 / [id number] / [employer] Joanne [id number] Device Closure Watchman Pebax Nitinol [place] Iridium Pet 24mm L75cm Od12 Fr [id number] Fr [address] Stopcock Y Adapter Self Expand Proximal Face Sterile Disposable Left Atrial Appendage - [id number] Implanted:Qt y: 1 on 08/28/2020 by Ignacio Obregon MD at [facility] Other - see comments Left: Heart [employer] Joanne 03/23/2022 [id number] / / [id number] Description:Left atrial appe ndage closure device with delivery system [employer] Inc Assurity Mri [id number] 2 Chamber Is-1 Connector Thk6mm Pacemaker [id number] - [id number] - [id number] Implanted:Qt y: 1 on 10/10/2022 by Ignacio Obregon MD at [facility] Pacemaker Right: Chest Wall [employer] 03/04/2024 [id number] / [id number] / [id number] Medtronic [employer] Inc X [id number] Resolute Stefano 3.5mm 2.1-2.7fr 18mm 140cm Rapid Exchange - [id number] Implanted:Qt y: 1 on 11/26/2018 by Ildefosno Barrios MD PhD at [facility] Stent Medtronic Inc 09/05/2020 [id number] / / [id number] Nokori [employer] Inc Vascade Mvp 6-12fr Venous Closure [id number] - [id number] - [id number] Implanted:Qt y: 1 on 10/10/2022 by Ignacio Obregon MD at [facility] Vascular Closure Device Right: Femoral Vein [employer] Inc 03/15/2024 [id number] / [id number] / [id number] Lens Bilateral: Eye Device Lizzy Watchman Procedure - [id number] Implanted:Qt y: 1 on 08/28/2020 by Ignacio Obregon MD at [facility] Symtext [id number] 1-3 PC / / Procedures Procedure Name Priority Date/Time Associated Diagnosis Comments DEVICE CHECK - IN OFFICE Routine 07/11/2024 1:13 PM TERRAZZO LAYER HELPER Sinus node dysfunction (CMS/HCC) (HCC) Adjustment and management of cardiac pacemaker DEVICE CHECK - REMOTE Routine 05/13/2024 4:00 AM TERRAZZO LAYER HELPER POCT LIPID PANEL Routine 04/22/2024 11:4 3 AM TERRAZZO LAYER HELPER Lipid screening EGFR Routine 10/11/2022 4:40 AM CDT HEMOGLOBIN A1C STAT 08/28/2022 3:07 AM CDT from Last 3 Months or Most Recently Relevant to Health Maintenance Results * DEVICE CHECK - IN OFFICE (07/11/2024 1:13 PM TERRAZZO LAYER HELPER) Anatomical Region Laterality Modality Other 07/11/2024 2:00 AM TERRAZZO LAYER HELPER Narrative 07/12/2024 10:54 AM TERRAZZO LAYER HELPER Interpretation Summary: Battery and Leads (BL) Normal parameters noted on battery and lead(s) --- Estimate 5.5-9.1 years to PANKAJ Anticoagulation (AC) Patient is not on anticoagulant therapy Patient is status-post left atrial appendage occlusion device Procedure Note Tyrone Garza MD - 07/12/2024 Interpretation Summary: Battery and Leads (BL) Normal parameters noted on battery and lead(s) --- Estimate 5.5-9.1 yearsto PANKAJ Anticoagulation (AC) Patient is not on anticoagulant therapy Patient is status-post left atrial appendage occlusion device Ignacio Obregon MD [facility] PROCE DURES Final Result * DEVICE CHECK - REMOTE (05/13/2024 4:00 AM TERRAZZO LAYER HELPER) Anatomical Region Laterality Modality Other 05/13/2024 4:00 AM TERRAZZO LAYER HELPER Narrative 05/19/2024 1:20 PM TERRAZZO LAYER HELPER Interpretation Summary: Battery and Leads (BL) Normal parameters noted on battery and lead(s) --- 5 to 9 years remaining (this is an estimate based on prior usage) Presenting Rhythm (RI) Atrial Fibrillation or Flutter Ventricular Sensing (VS) --- rate 60-100 Arrhythmic events (AE) Longstanding persistent atrial fibrillation and/or flutter --- AT/AF burden: 100%. V rates > 110 bpm: 18% [...] estimate based on prior usage) Presenting Rhythm (RI) Atrial Fibrillation or Flutter Ventricular Sensing (VS) --- rate 60-100 Arrhythmic events (AE) Longstanding persistent atrial fibrillation and/or flutter --- AT/AFburden: 100%. V rates > 110 bpm: 18% of the time during AF Anticoagulation (AC) Patient is not on anticoagulant therapy Patient is status-post left atrial appendage occlusion device Transmission Information (TI) Device Summary Report Ignacio Obregon MD [facility] PROCE DURES Final Result * POCT lipid panel (04/22/2024 11:43 AM TERRAZZO LAYER HELPER) Cholesterol, POC 119 mg/dL HDL, POC 35 mg/dL Triglycerides, POC 102 mg/dL LDL Cholesterol POC 64 mg/dL Chol/HDL Ratio, POC 1.9 Non-HDL Cholesterol, POC 85 mg/dL Cholesterol Total, POC 119 mg/dL Capillary blood 04/22/2024 1 1:43 AM TERRAZZO LAYER HELPER Sindhu Patrick NP POINT OF CARE TEST ORDERA BLES Final Result * (ABNORMAL) eGFR (10/11/2022 4:40 AM CDT) eGFR 41(L) 90 - 130 mL/min/1. 73 m2 [facility] Comment: Interpretive Data Reference Interval Normal >/= 90 mL/min/1.73m2 Mildly decreased* 60 - 89 mL/min/1.73m2 Mildly to moderately decreased 45 - 59 mL/min/1.73m2 Moderately to severely decreased 30 - 44 mL/min/1.73m2 Severely decreased 15 - 29 mL/min/1.73m2 Kidney Failure < 15 mL/min/1.73m2 *Relative to young adult level Estimated glomerular [...] MD LAB BLOOD ORDERABLES Final R esult [facility] [place] [address] * (ABNORMAL) Hemoglobin A1c (08/28/2022 3:07 AM CDT) Hgb A1C 6.1(H) 4.0 - 5.6 % [facility] Estimated Average Glucose 128 mg/dL [facility] Comment: The ADA recommends reporting an estimated Average Glucose (eAG) with all Hemoglobin A1c results using the equation derived from a study of 507 normal and diabetic adults. Minority populations were underrepresented and children were not included. (Diabetes Care 2020; 43(S1): S66-S76). The eAG is not equivalent to a fasting glucose. Blood 08/28/2022 3:07 AM CDT 08/28/2022 4:30 AM CDT Era Byrd MD LAB BLOOD ORDERABLES Final Re sult [facility] Department [place] [address] from Last 3 Months or Most Recently Relevant to Health Maintenance Insurance MEDICARE [facility] Member Subscriber Plan / Payer (Ef fective 2020-Present) Name:Jackie Landin Relation to Subscriber:Self Name:Jackie Landin Payer ID:[id number] Group ID:[id number] Type:COMMERCIAL Address: [address] [place] [id number] MEDICARE [facility] MEDICARE [facility] MEDICARE MEDICARE MEDICARE [facility] Advance Directives For more information, please contact: [phone] * Full Code (Latest Code Status on [...] 4:14 AM 11/07/2020 6:56 PM Care Teams Molder Wax Ball Relationship Specialty Start Date End Date Nicole Sierra NP [address] [place] [address] PCP - General Nurse Practitioner 07/20/23 Pinky Louise MD Consulting Physician Gastroenterology 10/02/18 Mackenzie Tobin NP [address] [address] Nurse Practitioner Medical Oncology 02/09/22 [place] [address] [place] [address] Consulting Physician Urology 08/06/22 [place] [address] [place] [address] Consulting Physician Cardiology 08/06/22
--- OUTSIDE RECORDS SUMMARY | 2024-07-24 12:33 | XMS_ITS | Encounter Summary ---
Author Organization [facility] Address [address] [facility] [place] [address] Care Team Providers Care Transport Manager Name Role Phone Marie Matias MD Unavailable [phone] Reason for Visit * Reason Comments Medication Problem Encounter Details Date Type Department Care Team (Late st Contact Info) Description 10/18/2023 Telephone [facility] - [address] [phone] Mariela Mcallister, tire mold engraver Problem Social History Tobacco Use Types Packs/Day [...] received from pt to report f/u with operating system programmer. Inquired about a change in medication from metoprolol succinate to carvedilol BID. Public Policy Analyst prefers pt to stay on metoprolol succinate. Dr. Gonzales notified. documented in this encounter Plan of Treatment Upcoming Encounters Date Type Department Care Team (Late st Contact Info) Description 10/08/2024 11:00 AM CDT Appointment [facility] [address] [place] [address] Lazaro Gonzales MD [address] [place] [phone] 10/08/2024 1:00 PM CDT Office Visit [facility] - [address], [place] [address] Lazaro Gonzales MD [address] [place] [phone] documented as of this encounter Visit Diagnoses Not on filedocumented in this encounter Care Teams Transport Manager Relationship Specialty Start Date End Date Marie Matias MD [address] [place] [phone] Internal Medicine 11/23/21 documented as of this encounter
--- OUTSIDE RECORDS SUMMARY | 2024-07-24 12:33 | XMS_ITS | Clinical Summary ---
Author Organization [facility] Address [address] [place] [address] Care Team Providers Care Senior Living Sales Counselor Name Role Phone Marie Matias MD Unavailable [phone] Source Comments [facility],non-owned Affiliates and Associated Physician Practices is amultiple site organization consisting of ambulatory clinics and hospital sitesin [place], [place], [place] and [place]. This disclosure is being madepursuant to the Care Everywhere program and may not contain all information available regarding this patient. Last updated 18.[facility] Allergies No known active allergies Medications * [...] 1 Tab by mouth once daily. Active [place]-3 Fatty Acids 1200 MG CAPS Take 1 [...] rybelsus -SSI Coronary artery disease invo lving [place] coronary artery of [place] heart without angina pectoris 11/19/2018 09/21/2023 Angina pectoris, unstable 11/07/20182023 Overview (09/21/2023): Added automatically from request for surgery [id number] H/O TIA (transient ischemic attack) and stroke [...] Comments Blood Pressure 126/86 04/09/2024 12:40 PM RETAIL GREETER Pulse 98 04/09/2024 12:40 PM RETAIL GREETER Temperature 36.6 C (97.8 F) 08/06/2014 11:36 AM RETAIL GREETER Respiratory Rate 10 03/07/2022 7:51 AM CDT Oxygen Saturation 97% 04/09/2024 12:40 PM RETAIL GREETER Inhaled Oxygen Concentration - - Weight 72.7 kg (160 lb 3.2 oz) 04/09/2024 12:40 PM RETAIL GREETER Height 157.5 cm (5' 2 ) 04/09/2024 12:40 PM RETAIL GREETER Body Mass Index 29.3 04/09/2024 12:40 PM RETAIL GREETER Plan of Treatment Upcoming Encounters Date Type Department Care Team (Late st Contact Info) Description 10/08/2024 11:00 AM CDT Appointment [facility] [address] [place] [address] Lazaro Gonzales MD [address] [place] [address] 10/08/2024 1:00 PM CDT Office Visit [facility] [place] [address] [facility], [place] [address] Lazaro Gonzales MD [address] [place] [address] Health Maintenance Due Date Last Done Comments BONE DENSITY TESTING 1945 MEDICARE AWV 12 MONTHS 1945 DTAP/TDAP/TD VACCINES (1 - Tdap) 1965 PNEUMOCOCCAL VACCINE 50+ (1 of 2 - PCV) 1965 ZOSTER VACCINE (1 of 2) 01/29/1996 Respiratory Syncytial Virus (RSV) Vaccine Pt: or over 60 yrs (1 - 1-dose 75+ series) 2021 DIABETES RETINOPATHY SCREENING 09/21/2023 DIABETES-FOOT EXAM WITH MONOFILAMENT 09/21/2023 DIABETES-HGB A1C 09/21/2023 08/28/2022, 05/2022, 03/30/2015, Additional history exists COVID-19 VACCINE (3 - 2023- season) 2024 09/08/2020, 07/08/2020 INFLUENZA VACCINE (#1) [...] Procedure Name Priority Date/Time Associated Diagnosis Comments COMPREHENSIVE METABOLIC PANEL Routine 04/09/2024 2:07 PM RETAIL GREETER Other cirrhosis of liver (HCC) HEPATITIS C [...] Recently Relevant to Health Maintenance Results * (ABNORMAL) COMPREHENSIVE METABOLIC PANEL (04/09/2024 2:07 PM RETAIL GREETER) BUN 22 7 - 26 mg/dL 04/09/2024 3:33 PM [facility] Creatinine 1.33(H) 0.56 - 0.96 mg/dL 04/09/2024 3:33 PM [facility] Sodium 140 136 - 145 mmol/L 04/09/2024 3:33 PM [facility] Potassium 3.9 3.5 - 4.5 mmol/L 04/09/2024 3:33 PM [facility] Chloride 104 98 - 107 mmol/L 04/09/2024 3:33 PM [facility] CO2 22 22 - 29 mmol/L 04/09/2024 3:33 PM [facility] Glucose 160(H) 70 - 99 mg/dL 04/09/2024 3:33 PM [facility] Calcium 9.4 8.4 - 10.2 mg/dL 04/09/2024 3:33 PM [facility] Protein Total 7.6 6.0 - 8.3 g/dL 04/09/2024 3:33 PM [facility] Albumin 3.4 3.4 - 5.0 g/dL 04/09/2024 3:33 PM [facility] Bilirubin Total 0.6 0.2 - 1.2 mg/dL 04/09/2024 3:33 PM [facility] Alkaline Phosphatase 155(H) 40 - 150 U/L 04/09/2024 3:33 PM [facility] ALT 12 5 - 55 U/L 04/09/2024 3:33 PM [facility] AST 20 5 - 34 U/L 04/09/2024 3:33 PM [facility] Anion Gap 14 6 - 16 04/09/2024 3:33 PM [facility] BUN/Creatinine Ratio 17 7 - 23 04/09/2024 3:33 PM [facility] Osmolality Calculated 297(H) 275 - 295 mOsm/kg 04/09/2024 3:33 PM [facility] Albumin/Globulin Ratio 0.8(L) 1.1 - 2.3 04/09/2024 3:33 PM [facility] eGFR by CKD-EPI 41(L) >=90 mL/min/1.7 3 m2 04/09/2024 3:33 PM [facility] Blood BLOOD SPECIMEN / Unknown Lab Venipuncture / Unknown 04/09/2024 2:07 PM RETAIL GREETER 04/09/2024 3:00 PM [facility] Lazaro Gonzales MD LAB - CHEMISTRY DEBBI KHAN [facility] Organization Address [facility]/State/[facility] Co de Phone Number [facility] [address] [place] [id number] [phone] * HEPATITIS C ANTIBODY (09/19/2023 3:44 PM CDT) Hepatitis C Antibody Non-react ruel Non-reac tive 09/19/2023 5:23 PM CDT [facility] Comment:Hepatitis C Antibody screen indicates no [...] Gonzales MD LAB - CHEMISTRY DEBBI KHAN [facility] [place] [id number] [place] [address], [facility] [phone] * (ABNORMAL) HEMOGLOBIN A1C (03/30/2015 12:13 PM CDT) Hemoglobin A1c 7.4(H) 4.2 - 5.8 % 03/30/2015 10:32 PM CDT [facility] Estimated Average Glucose 166 mg/dL 03/30/2015 10:32 PM CDT [facility] Whole Blood BLOOD SPECIMEN WITH EDTA / Unknown Venipuncture / Unknown 03/30/2015 12:13 PM CDT 03/30/2015 12:21 PM CDT Narrative [facility] - 03/30/2015 10:32 PM CDT [place] [employer] recommended the following cutoff levels: A1c > 6.5% -------- considered as diabetes if two separate tests > 6.5% or in an appropriate clinical setting. A1c between 5.7 -6.4% considered as prediabetes (suggest increased risk for diabetes and cardiovascular disease). Suggested treatment target level : A1c <7% Note: A1c test may be affected in certain conditions, listed but not limited to the conditions such as heavy or chronic bleeding, hemoglobinopathy/hemoglobin variants, anemia, severe iron deficiency, recent blood transfusion, kidney failure or liver disease. Ordering Provider Unlisted MD LAB - CHEM ISTRY ORDERABLES [facility] [address] [place] [address], [facility] * MICROALBUMIN URINE RANDOM (03/12/2014 11:04 AM CDT) Microalbumin Urine 20.0 0.0 - 20.0 mg/dL 03/12/2014 12:50 PM CDT [facility] Urine URINE / Unknown Venipuncture / Unknown 03/12/2014 11:04 AM CDT 03/12/2014 11:16 AM CDT Dk Kong MD LAB - URINE CHEMISTR Y ORDERABLES [facility] [address] from Last 3 Months or Most Recently Relevant to Health Maintenance Advance Directives * Full Code (Latest Code Status on File) Date Activated Date Inactivated Comments 08/04/2014 10:20 PM 08/06/2014 5:15 PM Care Teams Senior Living Sales Counselor Relationship Specialty Start Date End Date Marie Matias MD [address] [place] [address] Internal Medicine 11/23/21
--- OUTSIDE RECORDS SUMMARY | 2024-07-24 12:33 | XMS_ITS ---
Author Organization [facility] [address] Address [address] [place] [address] Care Team Providers Care Door To Door Selling Distributor Name Role Phone Pinky Louise MD Unavailable [phone] Mackenzie Tobin NP Unavailable [phone] Loki Viramontes MD Unavailable [phone] Frank Moses MD Unavailable Nicole Sierra NP Primary Care Provider [phone] Active Problems Problem Noted Date Diagnosed Date Sensorineural hearing loss (SNHL) of both ears 0 06/20/2024 Dizziness and giddiness 06/20/2024 S/P placement of cardiac pacemaker 10/20/2022 Assessment & Plan (07/11/2024 3:34 PM CASH CHECKER): -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 as [...] Chronic kidney disease (CKD), stage IV (severe) ([facility]) 10/10/2022 Assessment & Plan (10/11/2022 11:48 AM CDT): Stable on AM BMP -Avoid renal toxins, renally dose meds DM2 (diabetes mellitus, type 2) 10/10/2022 Assessment & Plan (10/11/2022 11:48 AM CDT): -Continue Jardiance. -Hold her rybelsus -SSI Acute on chronic congestive heart failure, unspecified heart failure type 08/27/2022 Renal mass 06/27/2022 Overview (06/27/2022): Added automatically from request for surgery [id number] A-fib ([facility]) 02/14/2022 Assessment & Plan (10/11/2022 11:47 AM [...] (07/11/2019): Added automatically from request for surgery [id number] Coronary artery disease invo lving [place] coronary artery of [place] heart without angina pectoris 11/19/2018 Angina pectoris, unstable (CMS/HCC) 11/07/2018 Overview (11/07/2018): Added automatically from request for surgery [id number] GI bleed 08/06/2018 Assessment & Plan (08/29/2020 [...] left breast in female, estrogen receptor positive ([facility]) 07/21/2015 Overview (09/09/2016): Malignant neoplasm of female [...] a associated with type 2 diabetes mellitus ([facility]) 07/21/2015 Overview (09/09/2016): Type 2 diabetes mellitus [...] Abnormal stress test Longstanding persistent atrial fibrillation ([facility]) 11/13/2013 Overview (09/09/2016): Paroxysmal atrial fibrillation Assessment & Plan (07/11/2024 3:39 PM CASH CHECKER): -Persistent AF and bradycardia s/p dual chamber [...] - Monitor on telemetry Postprocedural hypotension Current Treatment and Therapy Plans No current plan information found. Past Treatment and Therapy Plans No past plan information found. Lifetime Dose Tracking * Chemical Lifetime Dose [...] EF 72%, fixed apical defect c/w prior NM. Assessment & Plan (08/28/2020 7:53 PM CDT): - TTE in 09/2018 w/ G3DD. Home metop XL 12.5, losartan 25, lasix 20. - PCI 2018 w/ 1 stent to LAD. MPI stress 05/2020 w/ EF 72%, fixed apical defect c/w prior NM. Essential hypertension 09/13/201910/20 Assessment & Plan (02/16/2022 [...]
--- OUTSIDE RECORDS SUMMARY | 2024-07-24 12:33 | XMS_ITS | Referral Summary ---
Author Organization [facility] Address [address] [place] [address] Care Team Providers Care Copy Cutter Name Role Phone Marie Matias MD Unavailable [phone] Source Comments [facility],non-owned Affiliates and Associated Physician Practices is amultiple site organization consisting of ambulatory clinics and hospital sitesin [place], [place], [place] and [place]. This disclosure is being madepursuant to the Care Everywhere program and may not contain all information available regarding this patient. Last updated 18.[facility] Allergies No known active allergies Medications * [...] 1 Tab by mouth once daily. Active [place]-3 Fatty Acids 1200 MG CAPS Take 1 [...] rybelsus -SSI Coronary artery disease invo lving [place] coronary artery of [place] heart without angina pectoris 11/19/2018 09/21/2023 Angina pectoris, unstable 11/07/20182023 Overview (09/21/2023): Added automatically from request for surgery [id number] H/O TIA (transient ischemic attack) and stroke [...] Comments Blood Pressure 126/86 04/09/2024 12:40 PM EVENT DESIGNER Pulse 98 04/09/2024 12:40 PM EVENT DESIGNER Temperature 36.6 C (97.8 F) 08/06/2014 11:36 AM EVENT DESIGNER Respiratory Rate 10 03/07/2022 7:51 AM CDT Oxygen Saturation 97% 04/09/2024 12:40 PM EVENT DESIGNER Inhaled Oxygen Concentration - - Weight 72.7 kg (160 lb 3.2 oz) 04/09/2024 12:40 PM EVENT DESIGNER Height 157.5 cm (5' 2 ) 04/09/2024 12:40 PM EVENT DESIGNER Body Mass Index 29.3 04/09/2024 12:40 PM EVENT DESIGNER Functional Status Functional Status Response Date of [...] Info) Description 10/08/2024 11:00 AM CDT Appointment [facility] [address] [place] [address] Lazaro Gonzales MD [address] [place] [address] 10/08/2024 1:00 PM CDT Office Visit [facility] [place] [address], [place] [address] Lazaro Gonzales MD [facility] [place] [address] Goals Goal Patient Goal Type Associated Problems Recent Progress Patient-Stated? Author Medication Management General No iLzzie Valente, RN Note: Expected end date: ongoing Interventions: Take all medications as prescribed Procedures Procedure Name Priority Date/Time Associated Diagnosis Comments COMPREHENSIVE METABOLIC PANEL Routine 04/09/2024 2:07 PM EVENT DESIGNER Other cirrhosis of liver (HCC) HEPATITIS C [...] (ABNORMAL) COMPREHENSIVE METABOLIC PANEL (04/09/2024 2:07 PM EVENT DESIGNER) BUN 22 7 - 26 mg/dL 04/09/2024 3:33 PM EVENT DESIGNER [facility] Creatinine 1.33(H) 0.56 - 0.96 mg/dL 04/09/2024 3:33 PM [facility] Sodium 140 136 - 145 mmol/L 04/09/2024 3:33 PM [facility] Potassium 3.9 3.5 - 4.5 mmol/L 04/09/2024 3:33 PM [facility] Chloride 104 98 - 107 mmol/L 04/09/2024 3:33 PM [facility] CO2 22 22 - 29 mmol/L 04/09/2024 3:33 PM [facility] Glucose 160(H) 70 - 99 mg/dL 04/09/2024 3:33 PM [facility] Calcium 9.4 8.4 - 10.2 mg/dL 04/09/2024 3:33 PM [facility] Protein Total 7.6 6.0 - 8.3 g/dL 04/09/2024 3:33 PM [facility] Albumin 3.4 3.4 - 5.0 g/dL 04/09/2024 3:33 PM [facility] Bilirubin Total 0.6 0.2 - 1.2 mg/dL 04/09/2024 3:33 PM [facility] Alkaline Phosphatase 155(H) 40 - 150 U/L 04/09/2024 3:33 PM [facility] ALT 12 5 - 55 U/L 04/09/2024 3:33 PM [facility] AST 20 5 - 34 U/L 04/09/2024 3:33 PM [facility] Anion Gap 14 6 - 16 04/09/2024 3:33 PM [facility] BUN/Creatinine Ratio 17 7 - 23 04/09/2024 3:33 PM [facility] Osmolality Calculated 297(H) 275 - 295 mOsm/kg 04/09/2024 3:33 PM [facility] Albumin/Globulin Ratio 0.8(L) 1.1 - 2.3 04/09/2024 3:33 PM [facility] eGFR by CKD-EPI 41(L) >=90 mL/min/1.7 3 m2 04/09/2024 3:33 PM [facility] Blood BLOOD SPECIMEN / Unknown Lab Venipuncture / Unknown 04/09/2024 2:07 PM EVENT DESIGNER 04/09/2024 3:00 PM EVENT DESIGNER Lazaro Gonzales MD LAB - CHEMISTRY DEBBI KHAN Performing Organization Address City/[facility]/ZIP Co de Phone Number [address] [address], [facility] [phone] * HEPATITIS C ANTIBODY (09/19/2023 3:44 PM CDT) [facility] Hepatitis C Antibody Non-react ruel Non-reac tive 09/19/2023 5:[address] [facility] Comment:Hepatitis C Antibody screen indicates no serologic [...] - CHEMISTRY DEBBI KHAN Performing Organization Address [facility] Co de Phone Number [address] [address], [facility] [phone] * (ABNORMAL) HEMOGLOBIN A1C (03/30/2015 12:13 PM CDT) [facility] Hemoglobin A1c 7.4(H) 4.2 - 5.8 % 03/30/2015 10:32 PM CDT [facility] Estimated Average Glucose 166 mg/dL 03/30/2015 10:32 PM CDT [facility] Whole Blood BLOOD SPECIMEN WITH EDTA / Unknown Venipuncture / Unknown 03/30/2015 12:13 PM CDT 03/30/2015 12:21 PM CDT Narrative [facility] - 03/30/2015 10:32 PM CDT [place] [employer] recommended the following cutoff levels: [...] - CHEM ISTRY ORDERABLES Performing Organization Address [facility] Co de Phone Number [facility] [address] * MICROALBUMIN URINE RANDOM (03/12/2014 11:04 AM CDT) Microalbumin Urine 20.0 0.0 - 20.0 mg/dL 03/12/2014 12:50 PM CDT [facility] Urine URINE / Unknown Venipuncture / Unknown 03/12/2014 11:04 AM CDT 03/12/2014 11:16 AM CDT Dk Kong MD LAB - URINE CHEMISTR Y ORDERABLES Performing Organization Address [facility] de Phone Number [facility] [address] from Last 3 Months or Most Recently Relevant to Health Maintenance Advance Directives * Full Code (Latest Code Status on File) Date Activated Date Inactivated Comments 08/04/2014 10:20 PM 08/06/2014 5:15 PM Care Teams Copy Cutter Relationship Specialty Start Date End Date Marie Matias MD [address] [place] [address] Internal Medicine 11/23/21
--- OUTSIDE RECORDS SUMMARY | 2024-07-24 12:33 | XMS_ITS | Encounter Summary ---
Author Organization [facility] Address [address] [place] [address] Phone Care Team Providers Care Splunk Dashboard Developer Name Role Phone Pinky Louise MD Unavailable [phone] Mackenzie Tobin NP Unavailable [phone] Loki Viramontes MD Unavailable [phone] Frank Moses MD Unavailable [phone] Nicole Sierra NP Primary Care Provider [phone] Encounter Details Date Type Department Care Team (Late st Contact Info) Description 07/18/2024 Telephone [facility] Cardiology [address] [facility] Advanced Medicine [address]th [place] [address] [place] [address] Ignacio Obregon MD [address] [facility] [address] [place] [address] Social History Tobacco Use Types Packs/Day Years Used Date Smoking Tobacco: Never Passive Smoke Exposure: Past Smokeless Tobacco: Never Alcohol Use Standard Drinks/Week [...] often do you attend chur ch or sikh services? Never 08/29/2022 Do you belong to any clubs o r organizations such as alevism groups, unions, fraternal or athletic groups, or [...] on file Legal Sex Female 2:00 AM PUBLICATION SPECIALIST Gender Identity Not on file Sexual Orientation Not on file documented as of this encounter Miscellaneous Notes * Telephone Encounter - Krystin Wilson - 07/18/2024 2:12 PM CST PT CALLED TO LET YOU KNOW SHE WILL GET ECHO AT [facility] ON 07/25/2024 ICATION SPECIALIST documented in this encounter Plan of Treatment Not on file documented as of this encounter Visit Diagnoses Not on filedocumented in this encounter Care Teams Splunk Dashboard Developer Relationship Specialty Start Date End Date Nicole Sierra NP [address] [place] [address] PCP - General Nurse Practitioner 07/20/23 Pinky Louise MD Consulting Physician Gastroenterology 10/02/18 Mackenzie Tobin NP [address] [place] [address] Nurse Practitioner Medical Oncology 02/09/22 [place] [address] [place] [address] Consulting Physician Urology 08/06/22 [place] [address] [place] [address] Consulting Physician Cardiology 08/06/22 documented as of this encounter
--- OUTSIDE RECORDS SUMMARY | 2024-07-24 12:33 | XMS_ITS | Continuity of Care Document ---
Author Organization [facility] Address [address] [place] [address] [address] [place] [address] Phone Care Team Providers Care Senior Cyber Security Analyst Name Role Phone Angel OD, Jr Unavailable Unavailable Procedures Procedure Date Office/outpatient Visit, Est Eye Exam, New Patient Advance Directives Directive Yes / No Effective Date File Name No Information Encounters Encounter Description Practice Location Reason(s) For Visit Diagnoses Date Provider Providers Copied on Encounter Office/outpat ient Visit, Est [facility], [address], [place], [place], [id number], tel:[phone] [facility] No Information Sep-2 5-200 8 Angel OD Jr. [address], [place], [place], [facility], [place]. tel:[phone] [facility], [address] [place] [address] [address], [place], [place], [id number], tel:[phone] [facility] No Information Sep-1 8-200 8 Angel OD Jr. [address] , [address], [place], [address], [place]. tel:[phone] Family History Family Member Type Diagnosis Age At Onset No Information Payers Payer name Insurance type Covered green party ID Authoriza tion(s) No Information Social History [...]
--- OUTSIDE RECORDS SUMMARY | 2024-07-24 12:33 | XMS_ITS | Clinical Summary ---
Author Organization [facility] [address] Address [address] [place] [address] Care Team Providers Care Lay Out Helper Name Role Phone Pinky Louise MD Unavailable [phone] Mackenzie Tobin NP Unavailable [phone] Loki Viramontes MD Unavailable [phone] Frank Moses MD Unavailable [phone] Nicole Sierra NP Primary Care Provider [phone] Allergies Active Allergy Reactions Criticality Noted Date [...] 1 tablet (3 mg total) by mouth collar worker before breakfast Active aspirin 325 mg tabletIndicati [...] 10/20/2022 Assessment & Plan (07/11/2024 3:34 PM LEAD TECHNOLOGIST IN CYTOGENETICS): -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 as programmed -Lead impedances, sensing, and thresholds are stable -No programming changes -Continue remote monitoring quarterly Assessment & Plan (01/09/2024 4:12 PM CDT): 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 as programmed Lead impedances, sensing, and thresholds are stable No programming changes Continue remote monitoring quarterly Atrial fibrillation (CMS/HCC) 10/11/2022 Sinus node dysfunction ([facility]) 10/10/2022 Assessment & Plan (10/10/2022 7:50 PM CDT): As per above. Chronic kidney disease (CKD), stage IV (severe) ([facility]) 10/10/2022 Assessment & Plan (10/11/2022 11:48 AM CDT): Stable on AM BMP -Avoid renal toxins, renally dose meds DM2 (diabetes mellitus, type 2) 10/10/2022 Assessment & Plan (10/11/2022 11:48 AM CDT): -Continue Jardiance. 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 11/19/2018 Angina pectoris, unstable (CMS/HCC) 11/07/2018 Overview (11/07/2018): Added automatically from request for surgery [id number] GI bleed 08/06/2018 Assessment & Plan (08/29/2020 [...] a associated with type 2 diabetes mellitus ([facility]) 07/21/2015 Overview (09/09/2016): Type 2 [...] Abnormal stress test Longstanding persistent atrial fibrillation (CMS /HCC) 11/13/2013 Overview (09/09/2016): Paroxysmal atrial fibrillation Assessment & Plan (07/11/2024 3:39 PM LEAD TECHNOLOGIST IN CYTOGENETICS): -Persistent AF and bradycardia s/p dual chamber [...] Resolved Date Chronic diastolic (congestive) heart failure 10/20/2022 Assessment & Plan (02/16/2022 1:59 PM [...] PM CDT): Continue lipitor Hypertension, essential 08/28/202009/03 10/2021 Assessment & Plan (08/29/2020 10:45 AM [...] Date Type Department Care Team Description 07/18/2024 10:15 AM LEAD TECHNOLOGIST IN CYTOGENETICS Therapy [facility] Bldg 1 OP Physical Therapy [address] [place] [id number] Vesna Lopez, PT Dizziness and giddiness (Primary Dx) 07/18/2024 Telephone [facility] Cardiology [address] [place] [address] [place] [address] Ignacio Obregon MD 07/18/2024 Plan of Care Documentation [facility] Bldg 1 OP Physical Therapy [address] [place] [address] 07/11/2024 2:00 PM LEAD TECHNOLOGIST IN CYTOGENETICS Office Visit [facility] Cardiology [address] [place] [address] [place] [address] Jyotsna Soto, ADRIANA Longstanding persistent atrial fibrillation (CMS/HCC) (HCC) (Primary Dx); S/P placement of cardiac pacemaker; Atrial fibrillation with RVR (CMS/HCC) (HCC) 07/11/2024 1:30 PM LEAD TECHNOLOGIST IN CYTOGENETICS Ancillary Procedure [facility] Cardiology [address] [place] [address] [place] [address] [place] [address] Sinus node dysfunction (CMS/HCC) (HCC); Adjustment and management of cardiac pacemaker 07/04/2024 4:15 PM LEAD TECHNOLOGIST IN CYTOGENETICS Telemedicine [facility] Otolaryngology [address] [place] [address] Mehul Martinez II, MD Dizziness and giddiness (Primary Dx) 07/04/2024 1:00 PM LEAD TECHNOLOGIST IN CYTOGENETICS Procedure visit [facility] Otolaryngology [address] [place] [phone] Deanna Galevz Dizziness and giddiness (Primary Dx) 07/04/2024 Telephone [facility] Otolaryngology [address] [place] [phone] Brie Vincent LPN Order vestibular rehab 06/20/2024 2:00 PM LEAD TECHNOLOGIST IN CYTOGENETICS Office Visit [facility] Otolaryngology [address] [place] [phone] Mehul Martinez II, MD Sensorineural hearing loss (SNHL) of both ears (Primary Dx); Dizziness and giddiness 06/20/2024 1:45 PM LEAD TECHNOLOGIST IN CYTOGENETICS Procedure visit [facility] Otolaryngology [address] [place] [phone] Deanna Galvez Dizziness and giddiness (Primary Dx); Sensorineural hearing loss (SNHL) of both ears; Tinnitus of both ears 05/13/2024 Orders Only [facility] Cardiology [address] [facility] Medicine [address]th [place] [address] [place] [address] Ignacio Obregon MD 05/01/2024 Telephone [facility] Cardiology [address] [facility] [address] [place] [address] Sindhu Patrick NP Med Management from Last 3 Months Immunizations Immunization Administration Dates Next Due Moderna [...] liver (HCC) History of kidney cancer Cataract Dizziness Family History Medical History Relation Name Comments [...] 08/29/2022 How often do you attend chur or shinto services? Never 08/29/2022 Do you belong to any clubs o r organizations such as congregation groups, unions, fraternal or athletic groups, or [...] place to sleep or slept in a fci (including now)? No 08/29/2022 Personal Safety Answer Date Recorded Have you ever been in or are you currently in a harmful physical or emotional relationship or is someone making you feel afraid or unsafe? Denies 10/10/2022 Comments No Sex and Gender Information Value Date Recorded Sex Assigned at Not on file Legal Sex Female 2:00 AM LEAD TECHNOLOGIST IN CYTOGENETICS Gender Identity Not on file Sexual Orientation Not on file Obstetrics History Last Filed Vital Signs Vital Sign Reading Time Taken Comments Blood Pressure 106/64 04/22/2024 11:37 AM LEAD TECHNOLOGIST IN CYTOGENETICS Pulse 91 07/11/2024 1:22 PM LEAD TECHNOLOGIST IN CYTOGENETICS Temperature 36.7 C (98.1 F) 04/14/2023 8:56 AM LEAD TECHNOLOGIST IN CYTOGENETICS Respiratory Rate 18 06/20/2024 1:50 PM LEAD TECHNOLOGIST IN CYTOGENETICS Oxygen Saturation 95% 07/11/2024 1:22 PM LEAD TECHNOLOGIST IN CYTOGENETICS Inhaled Oxygen Concentration - - Weight 73.3 kg (161 lb 9.6 oz) 07/11/2024 1:22 P M LEAD TECHNOLOGIST IN CYTOGENETICS Height 157.5 cm (5' 2 ) 07/11/2024 1:22 PM LEAD TECHNOLOGIST IN CYTOGENETICS Body Mass Index 29.56 07/11/2024 1:22 PM LEAD TECHNOLOGIST IN CYTOGENETICS Plan of Treatment Health Maintenance Due Date Last Done Comments Albumin Creatinine Ratio, Urine 1945 Hepatitis C Screening 1945 Osteoporosis Screening-Bone Density Scan 1945 Dilated Eye Exam 1945 Foot Exam 1945 DTaP/Tdap/Td Vaccine (1 - Tdap) 1957 Pneumococcal vaccine 65+ (1 of 2 - PCV) 1965 Zoster Vaccine (1 of 2) 01/29/1996 Well Visit 65+ 2011 Hemoglobin A1C 02/28/2023 08/28/2022, 07/07, 02/14/2022 Depression Screening 08/28/2023 08/27/2022 Fall Risk Assessment 10/11/2023 10/10/2022 eGFR 10/12/2023 10/11/2022, 05/08/2022, 08/31/2022, Additional history exists Covid-19 Vaccine (2023-2 5 season) 2024 09/08/2020, 07/08/2020 Influenza Vaccine (#1) 2024 Lipid Panel 04/22/2025 04/22/2024, 02/04, 02/15/2022, Additional history exists Hepatitis B Screening Completed 04/09/2024 Medical Devices Implanted Type Area Supervisor Gelatin Plant Device Identifier Shelf Expiration Date Model / Serial / Lot [employer] [id number] System 6-12fr Mvp Venous Closure Vascade - [id number] Implanted:Qt y: 1 on 08/28/2020 by Crow Gramajo MD at [facility] Collagen Left: Femoral [employer] 06/23/2022 [id number] / / [id number] Description:LFV sheath [employer] [id number] System 6-12fr Mvp Venous Closure Vascade - [id number] Implanted:Qt y: 1 on 08/28/2020 by Crow Gramajo MD at [facility] Collagen Right: Femoral [employer] 06/23/2022 [id number] / / [id number] Description:RFV sheath X 1 [employer] Tendril Sts 6fr 52cm Is-1 Connector Active Fixation Bipolar Soft /52 - [id number] - [id number] Implanted:Qt y: 1 on 10/10/2022 by Ignacio Obregon MD at [facility] Lead Right: Ventricle [employer] 08/02/20258TC/52 / [id number] / [employer] Tendril Sts 6fr 46cm Is-1 Connector Bipolar Active Fixation /46 - [id number] - [id number] Implanted:Qt y: 1 on 10/10/2022 by Ignacio Obregon MD at [facility] Lead Right: Atria [employer] 08/02/20258TC/46 / [id number] / [employer] Joanne [id number] Device Closure Watchman Pebax Nitinol [place] Iridium Pet 24mm L75cm Od12 Fr [id number] Fr [address] Stopcock Y Adapter Self Expand Proximal Face Sterile Disposable Left Atrial Appendage - [id number] Implanted:Qt y: 1 on 08/28/2020 by Ignacio Obregon MD at [facility] Other - see comments Left: Heart [employer] 03/23/2022 [id number] / / [id number] Description:Left atrial appe ndage closure device with delivery system [employer] Assurity Mri [id number] 2 Chamber Is-1 Connector Thk6mm Pacemaker [id number] - [id number] - [id number] Implanted:Qt y: 1 on 10/10/2022 by Ignacio Obregon MD at [facility] Pacemaker Right: Chest Wall [employer] 03/04/2024 [id number] / [id number] / [id number] Med[employer] X [id number] Resolute [place] 3.5mm 2.1-2.7fr 18mm 140cm Rapid Exchange - [id number] Implanted:Qt y: 1 on 11/26/2018 by Ildefonso Barrios MD PhD at [facility] Stent Medtronic Inc 09/05/2020 [id number] / / [id number] [employer] Inc Vascade Mvp 6-12fr Venous Closure [id number] - [id number] - [id number] Implanted:Qt y: 1 on 10/10/2022 by Ignacio Obregon MD at [facility] Vascular Closure Device Right: Femoral Vein [employer] 03/15/2024 [id number] / [id number] / [id number] Lens Bilateral: Eye Device Lizzy Watchman Procedure - [id number] Implanted:Qt y: 1 on 08/28/2020 by Ignacio Obregon MD at [facility] Rhythmia Medical [facility] [id number] 1-3 PC / / Procedures Procedure Name Priority Date/Time Associated Diagnosis Comments DEVICE CHECK - IN OFFICE Routine 07/11/2024 1:13 PM LEAD TECHNOLOGIST IN CYTOGENETICS Sinus node dysfunction (CMS/HCC) (HCC) Adjustment and management of cardiac pacemaker DEVICE CHECK - REMOTE Routine 05/13/2024 4:00 AM LEAD TECHNOLOGIST IN CYTOGENETICS POCT LIPID PANEL Routine 04/22/2024 11:4 3 AM LEAD TECHNOLOGIST IN CYTOGENETICS Lipid screening EGFR Routine 10/11/2022 4:40 AM CDT HEMOGLOBIN A1C STAT 08/28/2022 3:07 AM CDT from Last 3 Months or Most Recently Relevant to Health Maintenance Results * DEVICE CHECK - IN OFFICE (07/11/2024 1:13 PM LEAD TECHNOLOGIST IN CYTOGENETICS) Anatomical Region Laterality Modality Other 07/11/2024 2:00 AM LEAD TECHNOLOGIST IN CYTOGENETICS Narrative 07/12/2024 10:54 AM LEAD TECHNOLOGIST IN CYTOGENETICS Interpretation Summary: Battery and Leads (BL) Normal [...] device Ignacio Obregon MD [facility] Final Result * DEVICE CHECK - REMOTE (05/13/2024 4:00 AM LEAD TECHNOLOGIST IN CYTOGENETICS) Anatomical Region Laterality Modality Other 05/13/2024 4:00 AM LEAD TECHNOLOGIST IN CYTOGENETICS Narrative 05/19/2024 1:20 PM LEAD TECHNOLOGIST IN CYTOGENETICS Interpretation Summary: Battery and Leads (BL) Normal parameters noted on battery and lead(s) --- 5 to 9 years remaining (this is an estimate based on prior usage) Presenting Rhythm (NY) Atrial Fibrillation or Flutter Ventricular Sensing (VS) --- rate 60-100 Arrhythmic events (AE) Longstanding persistent atrial fibrillation and/or flutter --- AT/AF burden: 100%. V rates > 110 bpm: 18% of the time during AF Anticoagulation (AC) Patient is not on anticoagulant therapy Patient is status-post left atrial appendage occlusion device Transmission Information (TI) Device Summary Report Procedure Note Ignacio Obregon MD - 12/15/2024 Interpretation Summary: Battery and Leads (BL) Normal parameters noted on battery and lead(s) --- 5 to 9 years remaining(this is an estimate based on prior usage) Presenting Rhythm (NY) Atrial Fibrillation or Flutter Ventricular Sensing (VS) --- rate 60-100 Arrhythmic events (AE) Longstanding persistent atrial fibrillation and/or flutter --- AT/AFburden: 100%. V rates > 110 bpm: 18% of the time during AF Anticoagulation (AC) Patient is not on anticoagulant therapy Patient is status-post left atrial appendage occlusion device Transmission Information (TI) Device Summary Report Ignacio Obregon MD [facility] Final Result * POCT lipid panel (04/22/2024 11:43 AM LEAD TECHNOLOGIST IN CYTOGENETICS) Cholesterol, POC 119 mg/dL HDL, POC 35 mg/dL Triglycerides, POC 102 mg/dL LDL Cholesterol POC 64 mg/dL Chol/HDL Ratio, POC 1.9 Non-HDL Cholesterol, POC 85 mg/dL Cholesterol Total, POC 119 mg/dL Capillary blood 04/22/2024 1 1:43 AM LEAD TECHNOLOGIST IN CYTOGENETICS Sindhu Patrick NP POINT OF CARE TEST ORDERA BLES Final Result * (ABNORMAL) eGFR (10/11/2022 4:40 AM CDT) eGFR 41(L) 90 - 130 mL/min/1. 73 m2 LIZZIE GARCIA Comment: Interpretive Data Reference Interval Normal >/= [...] 4:40 AM CDT 10/11/2022 5:02 AM CDT Andrew Mckeon MD LAB BLOOD ORDERABLES Final R esult Performing Organization Address [facility] de Phone Number [facility] [place] [address] * (ABNORMAL) Hemoglobin A1c (08/28/2022 3:07 AM CDT) Hgb A1C 6.1(H) 4.0 - 5.6 % [facility] Estimated Average Glucose 128 mg/dL [facility] Comment: The ADA recommends reporting an [...] ORDERABLES Final Re sult Performing Organization Address [facility] de Phone Number [facility] [place] [address] from Last 3 Months or Most Recently Relevant to Health Maintenance Insurance MEDICARE [facility] Member Subscriber Plan / Payer (Ef fective 2020-Present) Name:Jackie Landin Relation to Subscriber:Self Name:Jackie Landin Payer ID:[id number] Group ID:[id number] Type:COMMERCIAL Address: [place] [id number] MEDICARE [facility] MEDICARE [facility] MEDICARE MEDICARE [facility]IC[facility] Advance Directives For more information, please contact: [phone] * Full Code (Latest Code Status on [...] 4:14 AM 11/07/2020 6:56 PM Care Teams Lay Out Helper Relationship Specialty Start Date End Date Nicole Sierra NP [address] [place] [id number] PCP - General Nurse Practitioner 07/20/23 Pinky Louise MD Consulting Physician Gastroenterology 10/02/18 [place] [address] [place] [address] Nurse Practitioner Medical Oncology 02/09/22 [place] [address] [place] [id number] Consulting Physician Urology 08/06/22 [place] [address] [place] [address] Consulting Physician Cardiology 08/06/22
--- OUTSIDE RECORDS SUMMARY | 2024-07-24 12:34 | XMS_ITS | Patient Health Summary ---
Author Organization [facility] Address [address] [place] [address] Care Team Providers Care Merchandise Flow Associate Name Role Phone Marie Matias MD Unavailable [phone] Note from [facility],non-owned Affiliates and Associated Physician Practices is amultiple site organization consisting of ambulatory clinics and hospital sitesin [place], [place], [place] and [place]. This disclosure is being madepursuant to the Care Everywhere program and may not contain all information available regarding this patient. Last updated 18.[facility] [employer] Allergies No known active allergies Medications * [...] 1 Tab by mouth once daily. * [place]-3 Fatty Acids 1200 MG CAPS Take 1 [...] 08/28/2020 09/21/2023 Coronary artery disease invo lving [place] coronary artery of [place] heart without angina pectoris 11/19/2018 09/21/2023 Angina [...] Comments Blood Pressure 126/86 04/09/2024 12:40 PM [facility] Pulse 98 04/09/2024 12:40 PM [facility] Temperature 36.6 C (97.8 F) 08/06/2014 11:36 AM [facility] Respiratory Rate 10 03/07/2022 7:51 AM CDT Oxygen Saturation 97% 04/09/2024 12:40 PM [facility] Inhaled Oxygen Concentration - - Weight 72.7 kg (160 lb 3.2 oz) 04/09/2024 12:40 PM [facility] Height 157.5 cm (5' 2 ) 04/09/2024 12:40 PM [facility] Body Mass Index 29.3 04/09/2024 12:40 PM [facility] Procedures * ALPHA FETOPROTEIN BLOOD TUMOR MARKER(Performed [...] DIFFERENTIAL(Performed 09/19/2023) Performed for Hepatic fibrosis * VT LIVER ELASTOGRAPHY(Performed 09/19/2023) Performed for Hepatic fibrosis [...] + MICRO EXAM(Performed 04/20/2010) Results * PT-INR [facility] (04/09/2024 2:07 PM [facility]) Only the most recent of2 resultswithin the time period is included. PT 14.6 12.1 - 14.8 Seconds 04/09/2024 3:29 PM [facility] INR 1.2 See Comment 04/09/2024 3:29 PM [facility] Comment:The suggested therap eutic range for standard coumadin (warfarin) therapy is an INR of 2.0-3.0. For high-risk patients (Mechanical Mitral Valve Prosthesis, etc.), the suggested prophylactic therapeutic range is an INR of 2.5-3.5. Blood BLOOD SPECIMEN / Unknown Lab Venipuncture / Unknown 04/09/2024 2:07 PM [facility] 04/09/2024 2:54 PM [facility] Lazaro Gonzales MD LAB - COAGULATION OR DERABLES [facility] [address] [place] [address] [phone] * ALPHA FETOPROTEIN BLOOD TUMOR MARKER (04/09/2024 2:07 PM [facility]) Only the most recent of2 resultswithin the time period is included. [facility] Alpha-Fetoprote in Tumor Marker 3.3 <=8.3 ng/mL 04/09/2024 3:51 PM [facility] Comment: AFP values will vary depending on testing procedure used. Results are not comparable across different methods. AFP values obtained by [facility] using an Rivas Alinity Immunoassay. Blood BLOOD SPECIMEN / Unknown Lab Venipuncture / Unknown 04/09/2024 2:07 PM [facility] 04/09/2024 3:00 PM [facility] Lazaro Gonzales MD LAB - CHEMISTRY DEBBI KHAN [facility] [address] [place] [address], [facility] [phone] * (ABNORMAL) CBC WITH DIFFERENTIAL (04/09/2024 2:07 PM [facility]) Only the most recent of5 resultswithin the time period is included. [facility] WBC 9.2 4.0 - 10.7 x10E9/L 04/09/2024 3:18 PM [facility] RBC Count 4.55 3.90 - 5.20 x10E12/L 04/09/2024 3:18 PM [facility] Hemoglobin 12.6 11.9 - 15.8 g/dL 04/09/2024 3:18 PM [facility] Hematocrit 39.9 34.8 - 46.1 % 04/09/2024 3:18 PM [facility] MCV 87.7 80.0 - 98.0 fL 04/09/2024 3:18 PM [facility] MCH 27.7 26.7 - 33.6 pg 04/09/2024 3:18 PM [facility] MCHC 31.6(L) 31.7 - 36.3 g/dL 04/09/2024 3:18 PM [facility] RDW-CV 13.4 11.3 - 14.8 % 04/09/2024 3:18 PM [facility] Platelet Count 103(L) 150 - 420 x10E9/L 04/09/2024 3:18 PM [facility] MPV 04/09/2024 3:18 PM [facility] Comment:Unable to report Neutrophil % 80.8(H) 41.0 - 74.0 % 04/09/2024 3:18 PM [facility] Lymphocyte % 13.0(L) 17.0 - 47.0 % 04/09/2024 3:18 PM [facility] Monocyte % 5.3 3.0 - 11.0 % 04/09/2024 3:18 PM [facility] Eosinophil % 0.4 0.0 - 7.0 % 04/09/2024 3:18 PM [facility] Basophil % 0.3 0.0 - 1.6 % 04/09/2024 3:18 PM [facility] Immature Granulocytes % 0.2 0.0 - 1.0 % 04/09/2024 3:18 PM [facility] Neutrophil Absolute 7.40 1.60 - 7.50 x10E9/L 04/09/2024 3:18 PM [facility] Lymphocyte Absolute 1.19 1.00 - 4.40 x10E9/L 04/09/2024 3:18 PM [facility] Monocyte Absolute 0.49 0.15 - 1.00 x10E9/L 04/09/2024 3:18 PM [facility] Eosinophil Absolute 0.04 0.00 - 0.60 x10E9/L 04/09/2024 3:18 PM [facility] Basophil Absolute 0.03 0.00 - 0.13 x10E9/L 04/09/2024 3:18 PM [facility] Blood BLOOD SPECIMEN / Unknown Lab Venipuncture / Unknown 04/09/2024 2:07 PM [facility] 04/09/2024 3:00 PM [facility] Lazaro Gonzales MD LAB - HEMATOLOGY ORD ERABLES [facility] [address] [place] [address] [phone] * (ABNORMAL) COMPREHENSIVE METABOLIC PANEL (04/09/2024 2:07 PM [facility]) Only the most recent of6 resultswithin the time period is included. BUN 22 7 - 26 mg/dL 04/09/2024 3:33 PM [facility] Creatinine 1.33(H) 0.56 - 0.96 mg/dL 04/09/2024 3:33 PM [facility] Sodium 140 136 - 145 mmol/L 04/09/2024 3:33 PM [facility] Potassium 3.9 3.5 - 4.5 mmol/L 04/09/2024 3:33 PM [facility] Chloride 104 98 - 107 mmol/L 04/09/2024 3:33 PM [facility] CO2 22 22 - 29 mmol/L 04/09/2024 3:33 PM [facility] Glucose 160(H) 70 - 99 mg/dL 04/09/2024 3:33 PM [facility] Calcium 9.4 8.4 - 10.2 mg/dL 04/09/2024 3:33 PM [facility] Protein Total 7.6 6.0 - 8.3 g/dL 04/09/2024 3:33 PM [facility] Albumin 3.4 3.4 - 5.0 g/dL 04/09/2024 3:33 PM [facility] Bilirubin Total 0.6 0.2 - 1.2 mg/dL 04/09/2024 3:33 PM [facility] Alkaline Phosphatase 155(H) 40 - 150 U/L 04/09/2024 3:33 PM [facility] ALT 12 5 - 55 U/L 04/09/2024 3:33 PM [facility] AST 20 5 - 34 U/L 04/09/2024 3:33 PM [facility] Anion Gap 14 6 - 16 04/09/2024 3:33 PM [facility] BUN/Creatinine Ratio 17 7 - 23 04/09/2024 3:33 PM [facility] Osmolality Calculated 297(H) 275 - 295 mOsm/kg 04/09/2024 3:33 PM [facility] Albumin/Globulin Ratio 0.8(L) 1.1 - 2.3 04/09/2024 3:33 PM [facility] eGFR by CKD-EPI 41(L) >=90 mL/min/1.7 3 m2 04/09/2024 3:33 PM [facility] Blood BLOOD SPECIMEN / Unknown Lab Venipuncture / Unknown 04/09/2024 2:07 PM [facility] 04/09/2024 3:00 PM [facility] Lazaro Gonzales MD LAB - CHEMISTRY DEBBI KHAN Performing Organization Address City/[facility]/ZIP Co de Phone Number [address] [address], [facility] [phone] * BILIRUBIN DIRECT (04/09/2024 2:07 PM [facility]) Bilirubin Conjugated 0.2 0.1 - 0.5 mg/dL 04/09/2024 3:33 PM [facility] Blood BLOOD SPECIMEN / Unknown Lab Venipuncture / Unknown 04/09/2024 2:07 PM [facility] 04/09/2024 3:00 PM [facility] Lazaro Gonzales MD LAB - CHEMISTRY DEBBI KHAN Performing Organization Address City/[facility]/ZIP Co de Phone Number [address] [address], [place] [phone] * US ABDOMEN LIMITED (04/09/2024 11:00 AM [facility]) Anatomical Region Laterality Modality Abdomen Ultrasound 04/09/2024 11:3 6 AM [facility] Impressions 04/09/2024 2:42 PM [facility] IMPRESSION: Liver Visualization Score A: No or minimal limitations. US-1 Negative. Repeat surveillance US in 6 months. Patent hepatic vasculature. 1.Hepatic cirrhosis without discrete hepatic observation. Report drafted by Raza Jackson MD IOliver MD have personally reviewed and interpreted this examination/study. > Interpreting Provider: Oliver Rosas MD on 04/09/2024 2:42 PM Narrative 04/09/2024 2:42 PM [facility] PROCEDURE: US ABDOMEN LIMITED, DATE/TIME OF EXAM: 04/09/2024 11:03 AM, LOCATION [facility] INDICATION: K74.69: Other cirrhosis of liver [...] DATE/TIME OF EXAM: 04/09/2024 11:03 AM, LOCATION [facility] INDICATION: K74.69: Other cirrhosis of liver [...] PM Lazaro Gonzales MD US ORDERABLES * (ABNORMAL) CBC W/O DIFFERENTIAL (09/19/2023 3:44 PM CDT) Only the most recent of2 resultswithin the time period is included. [facility] WBC 9.8 4.0 - 10.7 x10E9/L 09/19/2023 4:07 PM T [facility] RBC Count 4.76 3.90 - 5.20 x10E12/L 09/19/2023 4:07 PM T [facility] Hemoglobin 13.6 11.9 - 15.8 g/dL 09/19/2023 4:07 PM T [facility] Hematocrit 41.1 34.8 - 46.1 % 09/19/2023 4:07 PM T [facility] MCV 86.3 80.0 - 98.0 fL 09/19/2023 4:07 PM T [facility] MCH 28.6 26.7 - 33.6 pg 09/19/2023 4:07 PM T [facility] MCHC 33.1 31.7 - 36.3 g/dL 09/19/2023 4:07 PM T [facility] RDW-CV 12.6 11.3 - 14.8 % 09/19/2023 4:07 PM [facility] Platelet Count 127(L) 150 - 420 x10E9/L 09/19/2023 4:07 PM T [facility] MPV 12.7(H) 7.8 - 11.4 fL 09/19/2023 4:07 PM [facility] Blood BLOOD SPECIMEN / Unknown Lab Venipuncture / Unknown 09/19/2023 3:44 PM CDT 09/19/2023 4:01 PM CDT Lazaro Gonzales MD LAB - HEMATOLOGY ORD ERABLES [facility] [address] [place] [address], [facility] [phone] * HEPATITIS B SURFACE ANTIBODY (09/19/2023 3:44 PM CDT) [facility] Hepatitis B Virus Surface Antibody Non-react ruel Non-react ruel 09/19/2023 5:23 PM CDT [facility] Comment: < 8 mIU/mL Hepatitis B surface Antibody (HBsAb). Nonreactive for HBsAb - individual is considered not immune to Hepatitis B Virus infection. Hepatitis B Surface Antibody Quantitative 0.0 <8.0 mIU/mL 09/19/2023 5:23 PM CDT [facility] Comment: Hepatitis B Surface Antibody Numeric Result Interpretation: Nonreactive: <8.0 mIU/mL Indeterminate: 8.0 - 12.0 mIU/mL Reactive: >12.0 mIU/mL Blood BLOOD SPECIMEN / Unknown Lab Venipuncture / Unknown 09/19/2023 3:44 PM CDT 09/19/2023 3:58 PM CDT Lazaro Gonzales MD LAB - CHEMISTRY DEBBI KHAN Performing Organization Address City/[facility]/ZIP Co de Phone Number [address] [address], [facility] [phone] * HEPATITIS B CORE ANTIBODY TOTAL (09/19/2023 3:44 PM CDT) HBc Antibody Total Non-reacti ve Non-reacti ve 09/19/2023 5:23 PM CDT [facility] Blood BLOOD SPECIMEN / Unknown Lab Venipuncture / Unknown 09/19/2023 3:44 PM CDT 09/19/2023 3:58 PM CDT Lazaro Gonzales MD LAB - CHEMISTRY DEBBI KHAN [address] [address], [place] [phone] * HEPATITIS B SURFACE ANTIGEN W RFLX CONFIRMATION (09/19/2023 3:44 PM CDT) Hepatitis B Virus Surface Antigen Non-reacti ve Non-reacti ve 09/19/2023 5:23 PM CDT [facility] Blood BLOOD SPECIMEN / Unknown Lab Venipuncture / Unknown 09/19/2023 3:44 PM CDT 09/19/2023 3:58 PM CDT Lazaro Gonzales MD LAB - CHEMISTRY DEBBI KHAN Performing Organization Address [facility]/ZIP Co de Phone Number [address] [address], [place] [phone] * IRON + TRANSFERRIN PANEL (09/19/2023 3:44 PM CDT) [facility] Iron 77 40 - 150 ug/dL 09/19/2023 5:05 PM CDT [facility] Transferrin 218 174 - 382 mg/dL 09/19/2023 5:05 PM CDT [facility] Transferrin Saturation % 28 16 - 50 % 09/19/2023 5:05 PM CDT [facility] TIBC Calculated 273 240 - 450 ug/dL 09/19/2023 5:05 PM CDT [facility] Blood BLOOD SPECIMEN / Unknown Lab Venipuncture / Unknown 09/19/2023 3:44 PM CDT 09/19/2023 3:58 PM CDT Lazaro Gonzales MD LAB - CHEMISTRY DEBBI KHAN Performing Organization Address [facility] Co de Phone Number [address] [address], [place] [phone] * HEPATITIS C ANTIBODY (09/19/2023 3:44 PM CDT) [facility] Hepatitis C Antibody Non-react ruel Non-reac tive 09/19/2023 5:23 PM CDT [facility] Comment:Hepatitis C Antibody screen indicates [...] - CHEMISTRY DEBBI KHAN Performing Organization Address [facility]/ZIP Co de Phone Number [facility] [address] [place] [address], [place] [phone] * (ABNORMAL) HEPATITIS A ANTIBODY (09/19/2023 3:44 PM CDT) [facility] Hepatitis A Virus Antibody Total Positive( A) Negative 09/21/2023 6:10 PM CDT [facility] ([facility]) Comment: The positive anti-HAV is consistent with recent or remote Hepatitis A infection or antibody response to HAV vaccination. False positive anti-HAV can occur. Performed By: [employer] [address] [place] [address] Md Urologist: Buddy King MD, PhD CLIA Number: [id number] Blood BLOOD SPECIMEN / Unknown Lab Venipuncture / Unknown 09/19/2023 3:44 PM CDT 09/19/2023 3:58 PM CDT Lazaro Gonzales MD LAB - CHEMISTRY DEBBI KHAN Performing Organization Address [facility] Co de Phone Number [facility]) [address] [place] [phone] [place] [address] * (ABNORMAL) FERRITIN (09/19/2023 3:44 PM CDT) [facility] Ferritin 660(H) 13 - 204 ng/mL 09/19/2023 5:23 PM CDT [facility] Blood BLOOD SPECIMEN / Unknown Lab Venipuncture / Unknown 09/19/2023 3:44 PM CDT 09/19/2023 3:58 PM CDT Lazaro Gonzales MD LAB - CHEMISTRY DEBBI KHAN Performing Organization Address [facility]/ZIP Co de Phone Number [facility] [address] [place] [address], [place] [phone] * VT LIVER ELASTOGRAPHY (09/19/2023 2:21 PM CDT) Narrative Gen Delgadillo MD - 09/19/2023 2:21 PM CDT Gen Delgadillo MD 09/21/2023 4:54 PM Diagnosis: Hepatic Fibrosis RN verified patient NPO for prior 3 hours. Procedure explained. Date of Exam: 09/19/2023 Liver Stiffness: (LSM, kPa) median: 28.3 IQR/Median% (ideally < 30%): 28% CAP (controlled attenuation parameter): 225 Technical Difficulty: None Ordering Provider: Lazaro Gonzales [...] patients with nonalcoholic fatty liver disease. Gastroenterology 2019;156:0697-6618. Brittani MS, Mackenzie R, Ta GUDINO, et al. Vibration-controlled transient elastography to assess fibrosis and steatosis in patients with nonalcoholic fatty liver disease. Clin Gastroenterol Hepatol 2019;17:156-163. Note that scores have been developed that incorporate the Fibroscan liver stiffness measurement from large cohorts of patients with liver biopsies to further refine the ability of Fibroscan to identify patients with MASH and advanced fibrosis. These include the FAST (Fibroscan-AST) score (Madelyn, 2022) and the Agile3+ and Agile4 scores (Mamie, 202). Madelyn WIGGINS, Ta GUDINO, Shade Maza, Steve A, et al. Validation of the accuracy of the FAST score for detecting patients with at-risk nonalcoholic steatohepatitis (PIMENTEL) in a [place] cohort and comparison to other non-invasive algorithms. PLoS ONE (2021) 17: [id number]. Mamie AJ, Lee J, Kareen ZM, et al. Enhanced diagnosis of advanced fibrosis and cirrhosis in individuals with NAFLD using FibroScan-based Agile scores. J Hepatol (2022) 78: 247-259. Fibroscan LSM can also be used with laboratory parameters without formulas to assess prognosis. According to the Baveno-VII criteria (Lockwood, 202), Fibroscan LSM ?15 kPa plus a platelet count of ?[id number]/L rules out clinically significant portal hypertension (sensitivity and negative predictive value >90%) in patients with compensated advanced chronic liver disease. Lockwood R, Kailey J, Freddy-Jennie G, Ashley T, Shan García on behalf of the Baveno VII Faculty. Baveno VII--Renewing consensus in portal hypertension. J Hepatol (2021) 76: 959-974 Assessing the likelihood of advanced fibrosis in patients with intermediate liver stiffness measurement (LSM) by Fibroscan (e.g., 8-15 kPa) can be improved by also calculating the FIB-4 score (Ayline et al. Hepatology Communications 2019;3:2636-7196) or NAFLD Fibrosis score (Handy et al. Clinical Gastroenterology and Hepatology 2019;17:7898-0384 using routine clinical data. Note: 1. Fibroscan cannot reliably identify earlier stages of fibrosis (ie distinguish F0 from F1 and F2) and thus a histologic stage cannot be predicted from the Fibroscan reading. 2. Liver stiffness can be increased by factors other than fibrosis including passive congestion, infiltrative processes, active alcoholism, recent moderate alcohol consumption in the 2 weeks before the exam, biliary obstruction and marked inflammation. The interpretation of [...] additional interpretive data was last updated 10/08/22.) [email or web address] Lazaro Gonzales MD PROCEDURE/MINOR SURG ICAL ORDERABLES * DERMATOPATHOLOGY (01/03/2023 11:11 AM CDT) Only the most recent of5 resultswithin the time period is included. Case Report Dermatopathology Report Case: [id number] Authorizing Provider: Jyotsna Tineo DO Collected: 01/03/2023 11:11 AM Ordering Location: [facility] DermPath Lab Received: 01/03/2023 03:19 PM Pathologist: [...] of a non-oriented ellipse of skin measuring 70g67r8 mm. The epidermal surface is unremarkable. The margin is inked green. The 12 o'clock and 6 o'clock tips are submitted in cassette 1. The remainder of the ellipse is serially sectioned and submitted in cassette 2-3. Jar 0. 5:22 PM CDT DERMATOPATHOLOGY LABORATORY Microscopic Description [...] characteristic determined by the Dermatopathology Laboratory at [facility], directed by Dr. Blair Garcia. These tests need not be, and therefore are not, approved by the [place] Food and Drug Administration. The tests are used for clinical purposes. Billing Codes Specimen Charges Stain Charges 98295 1 3 5:22 PM CDT DERMATOPATHOLOGY LABORATORY Embedded Images 3 5:22 PM CDT DERMATOPATHOLOGY LABORATORY Pathology/Cytolo gy TISSUE SPECIMEN FROM SKIN / Unknown 01/03/2023 11:11 AM CDT 01/03/2023 3:19 PM CDT Jyotsna Tineo DO LAB - PATHOLOGY/C YTOLOGY ORDERABLES DERMATOPATHOLOGY LABORATORY [facility] - Department of Dermatology [address] [phone] * (ABNORMAL) HEMOGLOBIN A1C (03/30/2015 12:13 PM CDT) Only the most recent of5 resultswithin the time period is included. Hemoglobin A1c 7.4(H) 4.2 - 5.8 % 03/30/2015 10:32 PM CDT [facility] Estimated Average Glucose 166 mg/dL 03/30/2015 10:32 PM CDT [facility] Whole Blood BLOOD SPECIMEN WITH EDTA / Unknown Venipuncture / Unknown 03/30/2015 12:13 PM CDT 03/30/2015 12:21 PM CDT Narrative [facility] - 03/30/2015 10:32 PM CDT [employer] recommended the following cutoff levels: [...] - CHEM ISTRY ORDERABLES Performing Organization Address City/State/[facility] Co de Phone Number [facility] [address] * (ABNORMAL) BASIC METABOLIC PANEL (CALCIUM TOTAL) (03/30/2015 12:13 PM CDT) Only the most recent of5 resultswithin the time period is included. [facility] Glucose 151(H) 70 - 125 mg/dL 03/30/2015 [...] >60 mL/min/1.7 3m2 03/30/2015 12:47 PM CDT [facility] eGFR by MDRD >60 >60 mL/min/1.7 3m2 03/30/2015 12:47 PM CDT [facility] Blood BLOOD SPECIMEN / Unknown Venipuncture / Unknown 03/30/2015 12:13 PM CDT 03/30/2015 12:21 PM CDT Ordering Provider Unlisted MD LAB - CHEM ISTRY ORDERABLES [facility] [address] * ALT (03/30/2015 12:13 PM CDT) Only the most recent of5 resultswithin the time period is included. Pathologist [facility] ALT 30 5 - 55 U/L 03/30/2015 12:47 PM CDT [facility] Blood BLOOD SPECIMEN / Unknown Venipuncture / Unknown 03/30/2015 12:13 PM CDT 03/30/2015 12:21 PM CDT Ordering Provider Unlisted MD LAB - CHEM ISTRY ORDERABLES Performing Organization Address City/[facility] de Phone Number [facility] [address] * (ABNORMAL) LIPID PROFILE (03/30/2015 12:13 PM CDT) Only the most recent of3 resultswithin the time period is included. Cholesterol 146 <200 mg/dL 03/30/2015 12:46 PM CDT [facility] Triglycerides 150(H) <150 mg/dL 03/30/2015 12:46 PM CDT [facility] HDL Cholesterol 34(L) >40 mg/dL 03/30/2015 12:46 PM CDT [facility] Chol HDL Ratio 4.3 1.0 - 6.0 03/30/2015 12:46 PM CDT [facility] LDL Calculated 82 65 - 130 mg/dL 03/30/2015 12:46 PM CDT AM LABORATORY VLDL Calculated 30 10 - 40 mg/dL 03/30/2015 12:46 PM CDT [facility] Blood BLOOD SPECIMEN / Unknown Venipuncture / Unknown 03/30/2015 12:13 PM CDT 03/30/2015 12:21 PM CDT [facility] - 03/30/2015 12:46 PM CDT Lipid [...] Provider Unlisted LAB - CHEM ISTRY ORDERABLES [facility] [address] [place] [address], [place] * CARDIAC RHYTHM STRIP ORDER (08/12/2014 10:27 AM CDT) Narrative 08/12/2014 10:27 AM CDT Ordered by an unspecified provider. Scanned Document CARDIAC SERVICES ORD ERABLES * (ABNORMAL) GLUCOSE - POINT OF CARE (08/06/2014 11:32 AM [facility]) Only the most recent of6 resultswithin the time period is included. Glucose WB/POC 251(H) 70 - 125 mg/dL 08/06/2014 1:41 PM [facility] Blood BLOOD SPECIMEN / Unknown 08/06/2014 11:32 AM [facility] 08/06/2014 1:41 PM [facility] Narrative [facility] - 08/06/2014 1:41 PM [facility] NOTIFIED CAREGIVER Francisca العراقي MD LAB - POINT OF CA RE ORDERABLES [facility] [address] * NM MYOCARD PERFUSION SPECT STRESS AND REST (08/06/2014 11:24 AM [facility]) Anatomical Region Laterality Modality Chest Nuclear Medicine 08/06/2014 3:37 PM [facility] Impressions 08/06/2014 6:21 PM [facility]ER Mild myocardial ischemia felt to be present at the anterior wall and apex. No areas of myocardial infarction or additional areas of myocardial ischemia. Calculated LVEF of 82%. Phone call made to Luh Mccord informing her of preliminary report available in [facility] at hours on 08/06/2014. Narrative 08/06/2014 6:21 PM [facility] GATED STRESS/REST SPECT MYOCARDIAL PERFUSION SCAN WITH [...] informing her of preliminary report available in [employer] at hours on 08/06/2014. Francisca العراقي MD NM ORDERABLES * US BREAST LEFT LTD (08/06/2014 8:00 AM [facility]) Anatomical Region Laterality Modality Breast Left Ultrasound 08/06/2014 9:33 AM [facility] Impressions 08/07/2014 5:09 PM [facility] Hypoechoic lesion at lower-outer quadrant of left breast with internal echoes and some posterior acoustical enhancement with etiology uncertain. Comparison with known outside studies necessary as discussed above. BI-RADS Category 0. Report faxed to the office of Dr. Dk Kong at 12:10 p.m. on 08/07/2014. Call subsequently made to [employer] [facility] to confirm receipt of report. Narrative 08/07/2014 5:09 PM [facility] LEFT BREAST SONOGRAPHY: (08/06/2014) HISTORY: History of breast cancer with postoperative change noted in left breast at 08/04/2014 CT angiography of chest. 3.7 x 3.3 cm thick-walled hypodense collection in lower-outer quadrant of left breast was noted at CT study. Followup imaging. FINDINGS: No other comparison studies available at this time. Patient has prior mammography and sonography studies of breasts in [place], [place] according to information provided by patient. [...] states she is due for mammogram in [place], [place] and plans to take study with [...] mammography and sonography studies of breasts in [place], [place] according to information provided by patient. [...] states she is due for mammogram in [place], [place] and plans to take study with [...] ORDERABLES * (ABNORMAL) PT-INR (08/06/2014 6:07 AM GUIDE WINDER) Only the most recent of8 resultswithin the time period is included. PT 20.1(H) 9.6 - 11.5 sec 08/06/2014 6:36 AM GUIDE WINDER [facility] INR 1.92(L) 2 - 3 08/06/2014 6:36 AM GUIDE WINDER [facility] Blood BLOOD SPECIMEN / Unknown Lab Venipuncture / Unknown 08/06/2014 6:07 AM GUIDE WINDER 08/06/2014 6:12 AM GUIDE WINDER Narrative [facility] - 08/06/2014 6:36 AM GUIDE WINDER Recommended therapeutic INR ranges for Oral Anticoagulant Therapy: 2.0-3.0 For prevention of Thrombosis or Embolism and treatment of Venous Thrombosis. 2.5- 3.5 for prevention of Recurrent Embolism or treatment of patients with Mechanical Prosthetic Heart Valves. Arley Ng MD LAB - COAGULATION OR DERABLES [facility] [address] [place] [address], [facility] * PHOSPHORUS BLOOD (08/06/2014 6:07 AM GUIDE WINDER) Phosphorus 3.82 2.3 - 4.7 mg/dL 08/06/2014 7:08 AM GUIDE WINDER [facility] Blood BLOOD SPECIMEN / Unknown Lab Venipuncture / Unknown 08/06/2014 6:07 AM GUIDE WINDER 08/06/2014 6:13 AM GUIDE WINDER Francisca العراقي MD LAB - CHEMISTRY O RDERABLES Performing Organization Address [facility]/ZIP Co de Phone Number [facility] [address] * (ABNORMAL) MAGNESIUM BLOOD (08/06/2014 6:07 AM GUIDE WINDER) Magnesium 1.4(L) 1.6 - 2.6 mg/dL 08/06/2014 7:08 AM GUIDE WINDER [facility] Blood BLOOD SPECIMEN / Unknown Lab Venipuncture / Unknown 08/06/2014 6:07 AM GUIDE WINDER 08/06/2014 6:13 AM GUIDE WINDER Francisca العراقي MD LAB - CHEMISTRY O YOLYERAAUTUMN Performing Organization Address [facility] Co de Phone Number [facility] [address] * TROPONIN I (08/05/2014 5:53 AM GUIDE WINDER) Only the most recent of6 resultswithin the time period is included. Troponin I <0.012 <=0.049 ng/mL 08/05/2014 7:44 AM GUIDE WINDER [facility] Blood BLOOD SPECIMEN / Unknown Lab Venipuncture / Unknown 08/05/2014 5:53 AM GUIDE WINDER 08/05/2014 6:56 AM GUIDE WINDER Narrative [facility] - 08/05/2014 7:44 AM GUIDE WINDER Note: Diagnosis of myocardial infarction requires symptoms [...] - CHEMISTRY DEBBI KHAN Performing Organization Address [facility] Co de Phone Number [facility] [address] * LIPASE BLOOD (08/05/2014 5:53 AM GUIDE WINDER) Lipase 9 8 - 78 U/L 08/05/2014 7:37 AM GUIDE WINDER [facility] Blood BLOOD SPECIMEN / Unknown Lab Venipuncture / Unknown 08/05/2014 5:53 AM GUIDE WINDER 08/05/2014 6:56 AM GUIDE WINDER Arley Ng MD LAB - CHEMISTRY DEBBI KHAN Performing Organization Address City/[facility] Co de Phone Number [facility] [address] * TSH (08/05/2014 5:53 AM GUIDE WINDER) Pathologist [facility] TSH 1.0360 0.35 - 4.94 uIU/mL 08/05/2014 8:07 AM GUIDE WINDER [facility] Blood BLOOD SPECIMEN / Unknown Lab Venipuncture / Unknown 08/05/2014 5:53 AM GUIDE WINDER 08/05/2014 6:56 AM GUIDE WINDER Arley Ng MD LAB - CHEMISTRY DEBBI KHAN Performing Organization Address [facility] de Phone Number [facility] [address] * EKG 12-LEAD (08/05/2014 12:48 AM GUIDE WINDER) Only the most recent of5 resultswithin the time period is included. Ventricular Rate 69 BPM [facility] Atrial Rate 69 BPM [facility] P-R Interval 170 ms [facility] QRS Duration ms 78 ms [facility] Q-T Interval ms 446 ms [facility] QTC Calculation (Bezet) 477 ms [facility] Calculated P [place] 53 degrees [facility] Calculated R [place] -25 degrees [facility] Calculated T [place] 9 degrees [facility] Interpretation EKG Normal sinus rhythm Possible Inferior infarct , age undetermined Nonspecific T wave abnormality Anterolateral leads Abnormal ECG When compared with ECG of 04-AUG-2014 19:14, (Unconfirmed) Nonspecific T wave abnormality, worse in Anterolateral leads Confirmed by Sergio LAI, Carlos ([id number]) on 08/06/2014 3:22:34 PM [facility] 08/05/2014 12:4 8 AM GUIDE WINDER 08/06/2014 3:22 PM GUIDE WINDER Arley Ng MD ECG ORDERABLES [facility] * URINALYSIS ROUTINE W/REFLEX TO CULTURE (08/05/2014 12:11 AM GUIDE WINDER) Color UA Yellow 08/05/2014 12:25 AM [facility] Clarity UA Clear 08/05/2014 12:25 AM [facility] Glucose UA Negative Negative 08/05/2014 12:25 AM [facility] Bilirubin UA Negative Negative 08/05/2014 12:25 AM [facility] Ketone UA Negative Negative 08/05/2014 12:25 AM [facility] Specific [place] UA 1.010 1.005 - 1.030 08/05/2014 12:25 AM [facility] pH UA 5.5 5.0 - 8.0 pH 08/05/2014 12:25 AM [facility] Protein UA Negative Negative 08/05/2014 12:25 AM [facility] Urobilinogen UA 0.2 0.2 - 1.0 EU/dL 08/05/2014 12:25 AM [facility] Nitrite UA Negative Negative 08/05/2014 12:25 AM [facility] Blood UA Negative Negative 08/05/2014 12:25 AM [facility] Leukocyte UA Negative Negative 08/05/2014 12:25 AM [facility] Urine Microscopy Urine microscopy not indicated 08/05/2014 12:25 AM [facility] Reflex Status Culture not indicated 08/05/2014 12:25 AM [facility] Urine URINE SPECIMEN OBTAINED BY CLEAN CATCH PROCEDURE / Unknown 08/05/2014 12:11 AM GUIDE WINDER 08/05/2014 12:19 AM GUIDE WINDER Arley Ng MD LAB - URINALYSIS ORD ERABLES [facility] [address] [place] [address], [facility] * ECHOCARDIOGRAM 2D WITH DOPPLER (08/05/2014 12:00 AM GUIDE WINDER) 08/05/2014 Narrative [facility] - 08/05/2014 8:01 PM [facility] [address] [place] [address] Transthoracic Echocardiogram 2D, M-mode, Doppler, and Color Doppler Patient: JACKIE LANDIN MR #: [id number] : 1945 Age: 69 years Gender: Female Study date: 05-Aug-2014 Status: Outpatient Room: [address] [place] [address] HR: 70 bpm Height: 62 in Weight: 197.6 lb BSA: 1.9 m BP: 125/ 58 Ordering Physician: [facility] Hospitalist Referring Physician: Unlisted Cord Cutter: [facility] Heart [facility] Vascular Cord Cutter: Carlos Hill MD Head Sawyer: Alejandra Negron RDCS Summary: - Left ventricle: [...] 20:07:43 Procedure Note Unknown, Provider - 08/05/2014 [facility] [address] [place] [address] Transthoracic Echocardiogram 2D, M-mode, Doppler, and Color Doppler Patient: JACKIE LANDIN MR #: [id number] : 1945 Age: 69 years Gender: Female Study date: 05-Aug-2014 Status: Outpatient Room: [address] [place] [address] HR: 70 bpm Height: 62 in Weight: 197.6 lb BSA: 1.9 m BP: 125/ 58 Ordering Physician: [facility] Referring Physician: Unlisted Cord Cutter: [facility] Cord Cutter: Carlos Hill MD Head Sawyer: Alejandra Negron RDCS Summary: - Left ventricle: [...] generated for this procedure were personally reviewedby pr. Prepared and Electronically Authenticated Carlos Hill MD 05-Aug-2014 20:07:43 Francisca العراقي MD ECHO ORDERABLES [facility] * CT ANGIO CHEST WITH OR WO CONTRAST [id number] (08/04/2014 7:30 PM GUIDE WINDER) Anatomical Region Laterality Modality Chest Computed Tomogra phy 08/04/2014 8:06 PM GUIDE WINDER Impressions 08/04/2014 9:07 PM GUIDE WINDER 1. No evidence of pulmonary embolism or [...] this study. Call made to Jackie Rudd, apartment community assistant manager in the Emergency Department, who confirmed report available for review in [facility] at 2023 hours on 08/04/2014 with information given to provider. Narrative 08/04/2014 9:[address] ANGIOGRAPHY CHEST WITH INTRAVENOUS CONTRAST MATERIAL [...] this study. Call made to Jackie Rudd, apartment community assistant manager in the Emergency Department, who confirmed report available for review in [facility] at 2023 hours on 08/04/2014 with information given to provider. Chato Stoll MD CT ORDERABLES * XR CHEST 1VW PORTABLE (08/04/2014 5:37 PM GUIDE WINDER) Only the most recent of2 resultswithin the time period is included. Anatomical Region Laterality Modality Chest Radiographic Gabriela ging 08/04/2014 6:00 PM GUIDE WINDER Impressions 08/04/2014 9:07 PM GUIDE WINDER 1. No gross acute cardiopulmonary disease. Chest appearance similar to 01/21/2014. 2. Mild cardiomegaly. Mild atherosclerotic aorta. No CHF. 3. No consolidation or large pleural effusion. No apparent pneumothorax. Old granulomatous disease. Narrative 08/04/2014 9:07 PM GUIDE WINDER PORTABLE CHEST RADIOGRAPH 08/04/2014: HISTORY: Shortness of [...] RDERABLES * LDL CHOLESTEROL (07/03/2014 12:39 PM GUIDE WINDER) Only the most recent of3 resultswithin the time period is included. LDL Direct 106 0 - 129 mg/dL 07/04/2014 11:50 AM GUIDE WINDER [facility] ([facility]) Comment: INTERPRETIVE INFORMATION: LDL Cholesterol, Direct CHD Risk Factors: +1 Age: Men, 45 years and older Women, 55 years and older or premature menopause without estrogen therapy +1 Family history of premature CHD +1 Current smoking +1 Hypertension +1 Diabetes mellitus +1 Low HDL Cholesterol: 39 mg/dL or less -1 High HDL Cholesterol: 60 mg/dL or greater LDL Cholesterol: Therapeutic goal 99 mg/dL or less if CHD is present(Optional 69 mg/dL or less) 129 mg/dL or less if no CHD and two or more risk factors 159 mg/dL or less if no CHD (Circulation 2004; 110:227-39) Access complete set of age- and/or gender-specific reference intervals for this test in the [facility] Laboratory Test Directory ([employer]). Blood specimen (specimen) BLOOD SPECIMEN / Unknown Venipuncture / Unknown 07/03/2014 12:39 PM GUIDE WINDER 07/03/2014 12:54 PM GUIDE WINDER Dk Kong MD LAB - CHEMISTRY ORDParveen KHAN [facility] ([facility]) [address] [place], [place] [id number] [place] [address] * MICROALBUMIN URINE RANDOM (03/12/2014 11:04 AM CDT) Only the most recent of2 resultswithin the time period is included. Microalbumin Urine 20.0 0.0 - 20.0 mg/dL 03/12/2014 12:50 PM CDT [facility] Urine URINE / Unknown Venipuncture / Unknown 03/12/2014 11:04 AM CDT 03/12/2014 11:16 AM CDT Dk Kong MD LAB - URINE CHEMISTR Y ORDERABLES Performing Organization Address City/[facility] Co de Phone Number [facility] [address] * (ABNORMAL) PT PTT PANEL (01/21/2014 8:31 PM CDT) PT 20.3(H) 9.6 - 11.5 sec 01/21/2014 9:07 PM CDT [facility] INR 1.91(L) 2 - 3 01/21/2014 9:07 PM CDT [facility] PTT 31.5 24.0 - 32.0 sec 01/21/2014 9:07 PM CDT [facility] Blood BLOOD SPECIMEN / Unknown 01/21/2014 8:31 PM CDT 01/21/2014 8:45 PM CDT Narrative [facility] - 01/21/2014 9:07 PM CDT Recommended therapeutic INR ranges for Oral Anticoagulant Therapy: 2.0-3.0 For prevention of Thrombosis or Embolism and treatment of Venous Thrombosis. 2.5- 3.5 for prevention of Recurrent Embolism or treatment of patients with Mechanical Prosthetic Heart Valves. Authorizing Provider Result Lexy Medina DO LAB - COAGULATION OR DERABLES [facility] [address] * (ABNORMAL) B-TYPE NATRIURETIC PEPTIDE (01/21/2014 8:31 PM CDT) BNP 134(H) 10 - 100 pg/mL 01/21/2014 9:26 PM CDT [facility] Blood BLOOD SPECIMEN / Unknown 01/21/2014 8:31 PM CDT 01/21/2014 8:45 PM CDT Narrative Authorizing Provider Result Lexy Medina DO LAB - CHEMISTRY ORDE RABLES Performing Organization Address [facility] Co de Phone Number [facility] [address] * MRI BREAST W/WO CONTRAST BILAT (11/10/2011 11:20 AM CDT) Anatomical Region Laterality Modality Breast Bilateral Magnetic Resonan ce 11/10/2011 2:06 PM CDT Narrative 11/10/2011 3:45 PM CDT MRI BILATERAL BREASTS WITH AND WITHOUT CONTRAST COMPUTER ANALYSIS WITH [employer] ON INDEPENDENT WORKSTATION INDICATION: Biopsy proven left breast 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 TECHNIQUE: Precontrast T1 and T2 weighted images with sequential contrast enhanced T1 weighted images of the breast. Standard MIPS were also obtained. 20 mL of Omniscan was injected intravenously. Analysis was performed with [employer] on independent workstation FINDINGS: Right breast: No [...] WITH AND WITHOUT CONTRAST COMPUTER ANALYSIS WITH [employer] ON INDEPENDENT WORKSTATION INDICATION: Biopsy proven left breast 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 TECHNIQUE: Precontrast T1 and T2 weighted images with sequential contrast enhanced T1 weighted images of the breast. Standard MIPS were also obtained. 20 mL of Omniscan was injected intravenously. Analysis was performed with [employer] on independent workstation FINDINGS: Right breast: No [...] BUN POCT 14 7 - 17 mg/dL [facility] Creatinine POCT 0.7 0.7 - 1.2 mg/dL [facility] POCT TESTING QC Verified yes Yes [facility] POC T TESTING Blood specimen (specimen) BLOOD SPECIMEN / Unknown 11/10/2011 10:13 AM CDT Dayanna Olsen DO LAB - POINT OF CARE ORDERABLES [facility] POCT TESTING [id number] [id number] * GROSS + MICRO EXAM (04/20/2010 8:00 AM GUIDE WINDER) Result CASE NUMBER [id number] Comment: ORDERING PHYSICIAN LONA REYEZ SPECIMEN TYPE Mass-Right Middle Finger Date of Surgery 04/20/2010 1229 Surgeon LONA REYEZ SPECIMEN SOURCE Mass right middle finger. *Pre Op Dx Mass right middle finger. OPERATIVE PROCEDURE Excision mass right middle finger. GROSS DESCRIPTION Received without fixative labeled mass right middle finger is a specimen which includes a rubbery bansal mass measuring 2 cm in maximum dimension which has a bansal cut surface focally calcified. Also present in the same container are several smaller fragments of skin and tissue similar to that seen in the mass. Trial Justice portions are submitted for decalcification in A1. Grossed by KITTY DAUGHERTY M.D. *MICROSCOPIC EXAM Sections of the tissue show a small amount of well formed mature bone. Most of the mass however, is composed of lobulated well differentiated fibrocartilage. Nuclear pleomorphism is fairly mild but occasional double nuclei are seen and some of the nuclei are angulated. The material is being sent to [facility] in consultation. Read by KITTY DAUGHERTY M.D. DIAGNOSIS SOFT TISSUES RIGHT MIDDLE FINGER BIOPSY - BENIGN-APPEARING CARTILAGINOUS LESION, SUGGESTIVE OF SOFT TISSUE CHONDROMA. *Comment The material was sent to [facility] in consultation. Please see the [facility] report and letter signed by Surjit Diaz M.D. RELEASED BY KITTY DAUGHERTY MD MISCELLANEOUS SAMPLES / Unknown 04/20/2010 8:00 AM GUIDE WINDER 04/20/2010 10:58 AM GUIDE WINDER Historical Provider LAB - PATHOLOGY/C YTOLOGY ORDERABLES Care Teams Merchandise Flow Associate Relationship Specialty Start Date End Date Marie Matias MD [address] [place] [address] Internal Medicine 11/23/21
--- OUTSIDE RECORDS SUMMARY | 2024-07-24 12:34 | XMS_ITS | Clinical Summary ---
Author Organization [facility] Address [address] [place] [id number] Care Team Providers Care Mechanical Engineer Name Role Phone Unavailable Primary Care Provider [...]
== END 2024-07-24 12:30 | disposition home or self-care (01) ==
LOC: ANHIMG 12:30
PROVIDERS: Visit Provider Surgery
DX: R92.30 Dense breasts, unspecified (principal); N63.0 Unspecified lump in unspecified breast; R92.1 Mammographic calcification found on diagnostic imaging of breast; Z85.3 Personal history of malignant neoplasm of breast
CPT/HCPCS: 76641; 77061; 77065; G0279

== ENCOUNTER 2024-07-25 14:40 | Outpatient (CLI) | payer MEDICARE, SELFPAY ==
--- NOTE | 2024-07-25 | ECHO_ITS ---
Patient Info Name: Jackie Waddell Age: 79 years : 1945 Gender: Female Ht: 62 in Wt: 160 lbs BSA: 1.81 m2 HR: 77 bpm BP: 116 / 76 mmHg Heart Rhythm: Atrial Fibrillation Technical Quality: Good Exam Date: 07/25/2024 3:14 PM Exam Location: Echo Lab Patient Status: Outpatient Admit Date: 07/25/2024 Staff Ordering Physician: ELYSIA, TONYA RODRIGUEZ Process Pumper: Bianca Barrera RDCS Attending Provider: ELYSIA, TONYA RODRIGUEZ Referring Physician: AMADO, ELYSIA; Exam Type: CA echo doppler color flow Study Info Indications - Afib with RVR Complete two-dimensional, color flow and Doppler transthoracic echocardiogram is performed. Summary 1. Complete two-dimensional, color flow and Doppler transthoracic echocardiogram is performed. 2. Left ventricular chamber dimension is normal. 3. Left ventricular systolic function is normal, estimated at 55-60%. 4. The left ventricular diastolic function is abnormal. 5. E/e' 15 is elevated. 6. Atrial fibrillation. 7. Left atrial chamber dimension is moderately enlarged. 8. There is mild aortic valve sclerosis. 9. There is mild aortic valve regurgitation. 10. The mitral valve has moderately calcified annulus. 11. There is mild mitral valve regurgitation. 12. There is mild to moderate tricuspid valve regurgitation. 13. No pulmonary hypertension, estimated pulmonary arterial systolic pressure is 38 mmHg. Left Ventricle E/e' 15 is elevated. Atrial fibrillation. Left ventricular chamber dimension is normal. Left ventricular systolic function is normal, estimated at 55-60%. The left ventricular diastolic function is abnormal. Right Ventricle Right ventricular chamber dimension is not well visualized. Left Atria Left atrial chamber dimension is moderately enlarged. Right Atria Right atrial chamber dimension is normal. Aortic Valve The aortic valve is trileaflet. There is mild aortic valve sclerosis. There is no aortic valve stenosis. There is mild aortic valve regurgitation. Pulmonic Valve There is no pulmonic regurgitation. Mitral Valve The mitral valve has moderately calcified annulus. There is no mitral valve stenosis. There is mild mitral valve regurgitation. Tricuspid Valve There is mild to moderate tricuspid valve regurgitation. No pulmonary hypertension, estimated pulmonary arterial systolic pressure is 38 mmHg. Pericardium/Pleural There is no pericardial effusion. Inferior Vena Cava Normal inferior vena cava with >50% collapse upon inspiration consistent with normal right atrial pressure, 5 mmHg. Aorta The aortic root size at the sinus of Valsalva is normal. Left Ventricular Outflow Tract Name Value Normal LVOT 2D LVOT Diameter 1.8 cm LVOT Doppler LVOT Peak Gradient 5 mmHg LVOT Mean Gradient 3 mmHg LVOT VTI 23 cm LVOT VTI/AV VTI Ratio 1.0 LVOT Stroke Volume 61 ml LVOT CO 5.8 l/min LVOT CI 3.2 l/min/m2 Pulmonic Valve Name Value Normal PV Doppler PV Peak Gradient 2 mmHg PV Regurgitation Doppler IL Peak End Diastolic Velocity 124 cm/s Mitral Valve Name Value Normal MV Doppler MV Peak Gradient 7 mmHg MV Mean Gradient 3 mmHg MV Decel Sunflower 738 cm/s2 MV PHT 54 ms MV Area (PHT) 4.1 cm2 4.0-5.0 MV Area (Cont Eq VTI) 2.8 cm2 MV Regurgitation Doppler MR Peak Gradient 92 mmHg MV Diastolic Function MV E Peak Velocity 138 cm/s MV A Peak Velocity 26 cm/s MV E/A 5.2 MV Decel Time 187 ms MV Annular TDI MV E/e' (Septal) 14.2 <=8.0 MV E/e' (Lateral) 18.0 <=8.0 MV E/e' (Average) 16.1 Tricuspid Valve Name Value Normal TV Regurgitation Doppler TR Peak Velocity 285 cm/s TR Peak Gradient 33 mmHg Estimated PAP/RSVP RA Pressure 5 mmHg <=5 PA Systolic Pressure 38 mmHg <36 RV Systolic Pressure 38 mmHg <36 Aortic Valve Name Value Normal AV Doppler AV Peak Velocity 131 cm/s AV Peak Gradient 7 mmHg AV Mean Gradient 4 mmHg AV VTI 23 cm AV Area (Cont Eq VTI) 2.6 cm2 >=3.0 AV Area (Cont Eq Reynold) 2.3 cm2 AV Regurgitation 2D LVOT Area 2.6 cm2 AV Regurgitation Doppler AR Decel Time 2,129 ms AR Decel Sunflower 155 cm/s2 AR PHT 617 ms Ventricles Name Value Normal LV Dimensions 2D/MM IVS Diastolic Thickness (2D) 0.6 cm 0.6-1.0 LVID Diastole (2D) 4.3 cm 3.8-5.2 LVIW Diastolic Thickness (2D) 0.7 cm 0.6-0.9 LVID Systole (2D) 3.2 cm 2.2-3.5 LVOT Diameter 1.8 cm LV Mass (2D Cubed) 77.63 g 67.00-162.00 LV Mass Index (2D Cubed) 43 g/m2 43-95 Relative Wall Thickness (2D) 0.32 LV Fractional Shortening/Ejection Fraction 2D/MM LV Fractional Shortening (2D) 27 % 27-45 LV EF (2D Teichash) 53 % 54-74 LV Diastolic Volume (4C MOD) 68 ml LV EF (4C MOD) 55 % LV Diastolic Length (4C) 6.3 cm LV Systolic Length (4C) 6.1 cm LV Stroke Volume (4C MOD) 37 ml Atria Name Value Normal LA Dimensions LA Volume (4C A-L) 49 ml RA Dimensions RA Area (4C) 15.5 cm2 <=18.0 Report Signatures
--- OUTSIDE RECORDS SUMMARY | 2024-07-25 14:43 | XMS_ITS | Referral Summary ---
Author Organization [facility] [employer] Address [address] [place] [address] Care Team Providers Care Neuro Ophthalmologist Name Role Phone Marie Matias MD Unavailable [phone] Source Comments [facility] [employer],non-owned Affiliates and Associated Physician Practices is amultiple site organization consisting of ambulatory clinics and hospital sitesin [place], [place], [place] and [place]. This disclosure is being madepursuant to the Care Everywhere program and may not contain all information available regarding this patient. Last updated 18.[facility] [employer] Allergies No known active allergies Medications * [...] 1 Tab by mouth once daily. Active Clinton-3 Fatty Acids 1200 MG CAPS Take 1 [...] rybelsus -SSI Coronary artery disease invo lving [place] coronary artery of [place] heart without angina pectoris 11/19/2018 09/21/2023 Angina pectoris, unstable 11/07/20182023 Overview (09/21/2023): Added automatically from request for surgery [id number] H/O TIA (transient ischemic attack) and stroke [...] Comments Blood Pressure 126/86 04/09/2024 12:40 PM STITCH BONDING MACHINE DRAWER IN Pulse 98 04/09/2024 12:40 PM [employer]ITCH BONDING MACHINE DRAWER IN Temperature 36.6 C (97.8 F) 08/06/2014 11:36 AM STITCH BONDING MACHINE DRAWER IN Respiratory Rate 10 03/07/2022 7:51 AM CDT Oxygen Saturation 97% 04/09/2024 12:40 PM [employer] B[employer]ING MACHINE DRAWER IN Inhaled Oxygen Concentration - - Weight 72.7 kg (160 lb 3.2 oz) 04/09/2024 12:40 PM [employer]ING MACHINE DRAWER IN Height 157.5 cm (5' 2 ) 04/09/2024 12:40 PM [employer] B[employer]ING MACHINE DRAWER IN Body Mass Index 29.3 04/09/2024 12:40 PM [employer]ITCH BONDING MACHINE DRAWER IN Functional Status Functional Status Response Date of [...] Info) Description 10/08/2024 11:00 AM CDT Appointment [facility] [address] [place] [phone] Lazaro Gonzales MD [address] [place] [address] 10/08/2024 1:00 PM CDT Office Visit [facility] [address] [place] [address] Lazaro Gonzales MD [facility] [place] [address] Goals Goal Patient Goal Type Associated Problems Recent Progress Patient-Stated? Author Medication Management General No Lizzie Valente, RN Note: Expected end date: ongoing Interventions: Take all medications as prescribed Procedures Procedure Name Priority Date/Time Associated Diagnosis Comments COMPREHENSIVE METABOLIC PANEL Routine 04/09/2024 2:07 PM [employer] MACHINE DRAWER IN Other cirrhosis of liver (HCC) HEPATITIS C [...] (ABNORMAL) COMPREHENSIVE METABOLIC PANEL (04/09/2024 2:07 PM [employer]ING MACHINE DRAWER IN) BUN 22 7 - 26 mg/dL 04/09/2024 3:33 PM [employer]ITCH BONDING MACHINE DRAWER IN [facility] Creatinine 1.33(H) 0.56 - 0.96 mg/dL 04/09/2024 3:33 PM [facility] Sodium 140 136 - 145 mmol/L 04/09/2024 3:33 PM [facility] Potassium 3.9 3.5 - 4.5 mmol/L 04/09/2024 3:33 PM [facility] Chloride 104 98 - 107 mmol/L 04/09/2024 3:33 PM [facility] CO2 22 22 - 29 mmol/L 04/09/2024 3:33 PM [facility] Glucose 160(H) 70 - 99 mg/dL 04/09/2024 3:33 PM [facility] Calcium 9.4 8.4 - 10.2 mg/dL 04/09/2024 3:33 PM [facility] Protein Total 7.6 6.0 - 8.3 g/dL 04/09/2024 3:33 PM [facility] Albumin 3.4 3.4 - 5.0 g/dL 04/09/2024 3:33 PM [facility] Bilirubin Total 0.6 0.2 - 1.2 mg/dL 04/09/2024 3:33 PM [facility] Alkaline Phosphatase 155(H) 40 - 150 U/L 04/09/2024 3:33 PM [facility] ALT 12 5 - 55 U/L 04/09/2024 3:33 PM [facility] AST 20 5 - 34 U/L 04/09/2024 3:33 PM [facility] Anion Gap 14 6 - 16 04/09/2024 3:33 PM [facility] BUN/Creatinine Ratio 17 7 - 23 04/09/2024 3:33 PM [facility] Osmolality Calculated 297(H) 275 - 295 mOsm/kg 04/09/2024 3:33 PM [facility] Albumin/Globulin Ratio 0.8(L) 1.1 - 2.3 04/09/2024 3:33 PM [facility] eGFR by CKD-EPI 41(L) >=90 mL/min/1.7 3 m2 04/09/2024 3:33 PM [facility] Blood BLOOD SPECIMEN / Unknown Lab Venipuncture / Unknown 04/09/2024 2:07 PM [employer] MACHINE DRAWER IN 04/09/2024 3:00 PM [employer]ACHINE DRAWER IN Lazaro Gonzales MD LAB - CHEMISTRY DEBBI KHAN Performing Organization Address City/[facility]/ZIP Co de Phone Number [address] [address], [facility] [phone] * HEPATITIS C ANTIBODY (09/19/2023 3:44 PM CDT) [facility] Hepatitis C Antibody Non-react ruel Non-reac tive 09/19/2023 5:23 PM CDT [facility] Comment:Hepatitis C Antibody screen indicates no [...] - CHEMISTRY DEBBI KHAN Performing Organization Address [facility] Co de Phone Number [address] [address], [facility] [phone] * (ABNORMAL) HEMOGLOBIN A1C (03/30/2015 12:13 PM CDT) [facility] Hemoglobin A1c 7.4(H) 4.2 - 5.8 % 03/30/2015 10:32 PM CDT [facility] Estimated Average Glucose 166 mg/dL 03/30/2015 10:32 PM CDT [facility] Whole Blood BLOOD SPECIMEN WITH EDTA / Unknown Venipuncture / Unknown 03/30/2015 12:13 PM CDT 03/30/2015 12:21 PM CDT Narrative [facility] - 03/30/2015 10:32 PM CDT [employer] recommended the following cutoff levels: [...] - CHEM ISTRY ORDERABLES Performing Organization Address [facility] Co de Phone Number [facility] [address] * MICROALBUMIN URINE RANDOM (03/12/2014 11:04 AM CDT) Microalbumin Urine 20.0 0.0 - 20.0 mg/dL 03/12/2014 12:50 PM CDT [facility] Urine URINE / Unknown Venipuncture / Unknown 03/12/2014 11:04 AM CDT 03/12/2014 11:16 AM CDT Dk Kong MD LAB - URINE CHEMISTR Y ORDERABLES Performing Organization Address [facility] de Phone Number [facility] [address] from Last 3 Months or Most Recently Relevant to Health Maintenance Advance Directives * Full Code (Latest Code Status on File) Date Activated Date Inactivated Comments 08/04/2014 10:20 PM 08/06/2014 5:15 PM Care Teams Neuro Ophthalmologist Relationship Specialty Start Date End Date Marie Matias MD [address] [place] [address] Internal Medicine 11/23/21
--- OUTSIDE RECORDS SUMMARY | 2024-07-25 14:43 | XMS_ITS | Encounter Summary ---
Author Organization [facility] Address [facility] [facility] [place] [address] Care Team Providers Care Mail Forwarding System Markup Clerk Name Role Phone Marie Matias MD Unavailable [phone] Reason for Visit * Reason Comments Medication Problem Encounter Details Date Type Department Care Team (Late st Contact Info) Description 10/18/2023 Telephone [facility] - [address] [phone] Mariela Mcallister, manager internet retails sales Problem Social History Tobacco Use Types Packs/Day [...] received from pt to report f/u with loss claim clerk. Inquired about a change in medication from metoprolol succinate to carvedilol BID. Industrial Diamond Polisher prefers pt to stay on metoprolol succinate. Dr. Gonzales notified. documented in this encounter Plan of Treatment Upcoming Encounters Date Type Department Care Team (Late st Contact Info) Description 10/08/2024 11:00 AM CDT Appointment [facility] [address] [place] [address] Lazaro Gonzales MD [address] [place] [phone] 10/08/2024 1:00 PM CDT Office Visit [facility] - [address] [place] [address] Lazaro Gonzales MD [address] [place] [phone] documented as of this encounter Visit Diagnoses Not on filedocumented in this encounter Care Teams Mail Forwarding System Markup Clerk Relationship Specialty Start Date End Date Marie Matias MD [address] [place] [phone] Internal Medicine 11/23/21 documented as of this encounter
--- OUTSIDE RECORDS SUMMARY | 2024-07-25 14:43 | XMS_ITS | Patient Health Summary ---
Author Organization [facility] Address [address] [place] [address] Care Team Providers Care Director Sports Name Role Phone Marie Matias MD Unavailable [phone] Note from [facility],non-owned Affiliates and Associated Physician Practices is amultiple site organization consisting of ambulatory clinics and hospital sitesin [place], [place], [place] and [place]. This disclosure is being madepursuant to the Care Everywhere program and may not contain all information available regarding this patient. Last updated 18.[facility] [employer] Allergies No known active allergies Medications * [...] 1 Tab by mouth once daily. * Schertz-3 Fatty Acids 1200 MG CAPS Take 1 [...] 08/28/2020 09/21/2023 Coronary artery disease invo lving [place] coronary artery of [place] heart without angina pectoris 11/19/2018 09/21/2023 Angina [...] Comments Blood Pressure 126/86 04/09/2024 12:40 PM [facility] Pulse 98 04/09/2024 12:40 PM [facility] Temperature 36.6 C (97.8 F) 08/06/2014 11:36 AM [facility] Respiratory Rate 10 03/07/2022 7:51 AM CDT Oxygen Saturation 97% 04/09/2024 12:40 PM [facility] Inhaled Oxygen Concentration - - Weight 72.7 kg (160 lb 3.2 oz) 04/09/2024 12:40 PM [facility] Height 157.5 cm (5' 2 ) 04/09/2024 12:40 PM [facility] Body Mass Index 29.3 04/09/2024 12:40 PM [facility] Procedures * ALPHA FETOPROTEIN BLOOD TUMOR MARKER(Performed [...] DIFFERENTIAL(Performed 09/19/2023) Performed for Hepatic fibrosis * AK LIVER ELASTOGRAPHY(Performed 09/19/2023) Performed for Hepatic fibrosis [...] + MICRO EXAM(Performed 04/20/2010) Results * PT-INR [facility] (04/09/2024 2:07 PM [facility] LABORATORY CHIEF) Only the most recent of2 resultswithin the time period is included. PT 14.6 12.1 - 14.8 Seconds 04/09/2024 3:29 PM CHEM[facility] LABORATORY CHIEF [facility] INR 1.2 See Comment 04/09/2024 3:29 PM [facility] LABORATORY CHIEF [facility] Comment:The suggested therap eutic range for standard coumadin (warfarin) therapy is an INR of 2.0-3.0. For high-risk patients (Mechanical Mitral Valve Prosthesis, etc.), the suggested prophylactic therapeutic range is an INR of 2.5-3.5. Blood BLOOD SPECIMEN / Unknown Lab Venipuncture / Unknown 04/09/2024 2:07 PM [facility] 04/09/2024 2:54 PM [facility] Lazaro Gonzales MD LAB - COAGULATION OR DERABLES [facility] [address] [place] [address] [phone] * ALPHA FETOPROTEIN BLOOD TUMOR MARKER (04/09/2024 2:07 PM CHEMICAL LABORATORY CHIEF) Only the most recent of2 resultswithin the time period is included. [facility] Alpha-Fetoprote in Tumor Marker 3.3 <=8.3 ng/mL 04/09/2024 3:51 PM [facility] Comment: AFP values will vary depending on testing procedure used. Results are not comparable across different methods. AFP values obtained by [facility] using an Rivas Alinity Immunoassay. Blood BLOOD SPECIMEN / Unknown Lab Venipuncture / Unknown 04/09/2024 2:07 PM [facility]ORY [facility]IE[facility] 04/09/2024 3:00 PM [facility]IE[facility] Lazaro Gonzales MD LAB - CHEMISTRY DEBBI KHAN [facility] [address] [place] [address], [facility] [phone] * (ABNORMAL) CBC WITH DIFFERENTIAL (04/09/2024 2:07 PM [facility] LABORATORY CHIEF) Only the most recent of5 resultswithin the time period is included. [facility] WBC 9.2 4.0 - 10.7 x10E9/L 04/09/2024 3:18 PM [facility] RBC Count 4.55 3.90 - 5.20 x10E12/L 04/09/2024 3:18 PM [facility] Hemoglobin 12.6 11.9 - 15.8 g/dL 04/09/2024 3:18 PM [facility] Hematocrit 39.9 34.8 - 46.1 % 04/09/2024 3:18 PM [facility] MCV 87.7 80.0 - 98.0 fL 04/09/2024 3:18 PM [facility] MCH 27.7 26.7 - 33.6 pg 04/09/2024 3:18 PM [facility] MCHC 31.6(L) 31.7 - 36.3 g/dL 04/09/2024 3:18 PM [facility] RDW-CV 13.4 11.3 - 14.8 % 04/09/2024 3:18 PM [facility] Platelet Count 103(L) 150 - 420 x10E9/L 04/09/2024 3:18 PM [facility] MPV 04/09/2024 3:18 PM [facility] Comment:Unable to report Neutrophil % 80.8(H) 41.0 - 74.0 % 04/09/2024 3:18 PM [facility] Lymphocyte % 13.0(L) 17.0 - 47.0 % 04/09/2024 3:18 PM [facility] Monocyte % 5.3 3.0 - 11.0 % 04/09/2024 3:18 PM [facility] Eosinophil % 0.4 0.0 - 7.0 % 04/09/2024 3:18 PM [facility] Basophil % 0.3 0.0 - 1.6 % 04/09/2024 3:18 PM [facility] Immature Granulocytes % 0.2 0.0 - 1.0 % 04/09/2024 3:18 PM [facility] Neutrophil Absolute 7.40 1.60 - 7.50 x10E9/L 04/09/2024 3:18 PM [facility] Lymphocyte Absolute 1.19 1.00 - 4.40 x10E9/L 04/09/2024 3:18 PM [facility] Monocyte Absolute 0.49 0.15 - 1.00 x10E9/L 04/09/2024 3:18 PM [facility] Eosinophil Absolute 0.04 0.00 - 0.60 x10E9/L 04/09/2024 3:18 PM [facility] Basophil Absolute 0.03 0.00 - 0.13 x10E9/L 04/09/2024 3:18 PM [facility] Blood BLOOD SPECIMEN / Unknown Lab Venipuncture / Unknown 04/09/2024 2:07 PM [facility] 04/09/2024 3:00 PM [facility] Lazaro Gonzales MD LAB - HEMATOLOGY ORD ERABLES [facility] [address] [place] [address] [phone] * (ABNORMAL) COMPREHENSIVE METABOLIC PANEL (04/09/2024 2:07 PM [facility]) Only the most recent of6 resultswithin the time period is included. BUN 22 7 - 26 mg/dL 04/09/2024 3:33 PM [facility] Creatinine 1.33(H) 0.56 - 0.96 mg/dL 04/09/2024 3:33 PM [facility] Sodium 140 136 - 145 mmol/L 04/09/2024 3:33 PM [facility] Potassium 3.9 3.5 - 4.5 mmol/L 04/09/2024 3:33 PM [facility] Chloride 104 98 - 107 mmol/L 04/09/2024 3:33 PM [facility] CO2 22 22 - 29 mmol/L 04/09/2024 3:33 PM [facility] Glucose 160(H) 70 - 99 mg/dL 04/09/2024 3:33 PM [facility] Calcium 9.4 8.4 - 10.2 mg/dL 04/09/2024 3:33 PM [facility] Protein Total 7.6 6.0 - 8.3 g/dL 04/09/2024 3:33 PM [facility] Albumin 3.4 3.4 - 5.0 g/dL 04/09/2024 3:33 PM [facility] Bilirubin Total 0.6 0.2 - 1.2 mg/dL 04/09/2024 3:33 PM [facility] Alkaline Phosphatase 155(H) 40 - 150 U/L 04/09/2024 3:33 PM [facility] ALT 12 5 - 55 U/L 04/09/2024 3:33 PM [facility] AST 20 5 - 34 U/L 04/09/2024 3:33 PM [facility] Anion Gap 14 6 - 16 04/09/2024 3:33 PM [facility] BUN/Creatinine Ratio 17 7 - 23 04/09/2024 3:33 PM [facility] Osmolality Calculated 297(H) 275 - 295 mOsm/kg 04/09/2024 3:33 PM [facility] LABORATORY CHIEF [facility] Albumin/Globulin Ratio 0.8(L) 1.1 - 2.3 04/09/2024 3:33 PM [facility] LABORATORY CHIEF [facility] eGFR by CKD-EPI 41(L) >=90 mL/min/1.7 3 m2 04/09/2024 3:33 PM [facility]ORATORY CHIEF [facility] Blood BLOOD SPECIMEN / Unknown Lab Venipuncture / Unknown 04/09/2024 2:07 PM [facility] CHIEF 04/09/2024 3:00 PM [facility] Lazaro Gonzales MD LAB - CHEMISTRY DEBBI KHAN Performing Organization Address City/[facility]/ZIP Co de Phone Number [address] [address], [facility] [phone] * BILIRUBIN DIRECT (04/09/2024 2:07 PM [facility] LABORATORY CHIEF) Bilirubin Conjugated 0.2 0.1 - 0.5 mg/dL 04/09/2024 3:33 PM [facility] LABORATORY CHIEF [facility] Blood BLOOD SPECIMEN / Unknown Lab Venipuncture / Unknown 04/09/2024 2:07 PM [facility]ORATORY CHIEF 04/09/2024 3:00 PM [facility]IE[facility] Lazaro Gonzales MD LAB - CHEMISTRY DEBBI KHAN Performing Organization Address City/[facility]/ZIP Co de Phone Number [address] [address], [place] [phone] * US ABDOMEN LIMITED (04/09/2024 11:00 AM [facility] LABORATORY CHIEF) Anatomical Region Laterality Modality Abdomen Ultrasound 04/09/2024 11:3 6 AM [facility]ORATORY CHIEF Impressions 04/09/2024 2:42 PM [facility] CHIEF IMPRESSION: Liver Visualization Score A: No or minimal limitations. US-1 Negative. Repeat surveillance US in 6 months. Patent hepatic vasculature. 1.Hepatic cirrhosis without discrete hepatic observation. Report drafted by Raza Jackson MD IOliver MD have personally reviewed and interpreted this examination/study. > Interpreting Provider: Oliver Rosas MD on 04/09/2024 2:42 PM Narrative 04/09/2024 2:42 PM [facility] PROCEDURE: US ABDOMEN LIMITED, DATE/TIME OF EXAM: 04/09/2024 11:03 AM, LOCATION [facility] INDICATION: K74.69: Other cirrhosis of liver [...] DATE/TIME OF EXAM: 04/09/2024 11:03 AM, LOCATION [facility] INDICATION: K74.69: Other cirrhosis of liver [...] of2 resultswithin the time period is included. [facility] WBC 9.8 4.0 - 10.7 x10E9/L 09/19/2023 4:07 PM T [facility] RBC Count 4.76 3.90 - 5.20 x10E12/L 09/19/2023 4:07 PM T [facility] Hemoglobin 13.6 11.9 - 15.8 g/dL 09/19/2023 4:07 PM T [facility] Hematocrit 41.1 34.8 - 46.1 % 09/19/2023 4:07 PM T [facility] MCV 86.3 80.0 - 98.0 fL 09/19/2023 4:07 PM T [facility] MCH 28.6 26.7 - 33.6 pg 09/19/2023 4:07 PM T [facility] MCHC 33.1 31.7 - 36.3 g/dL 09/19/2023 4:07 PM T [facility] RDW-CV 12.6 11.3 - 14.8 % 09/19/2023 4:07 PM [facility] Platelet Count 127(L) 150 - 420 x10E9/L 09/19/2023 4:07 PM T [facility] MPV 12.7(H) 7.8 - 11.4 fL 09/19/2023 4:07 PM [facility] Blood BLOOD SPECIMEN / Unknown Lab Venipuncture / Unknown 09/19/2023 3:44 PM CDT 09/19/2023 4:01 PM CDT Lazaro Gonzales MD LAB - HEMATOLOGY ORD ERABLES [facility] [address] [place] [address], [facility] [phone] * HEPATITIS B SURFACE ANTIBODY (09/19/2023 3:44 PM CDT) [facility] Hepatitis B Virus Surface Antibody Non-react ruel Non-react ruel 09/19/2023 5:23 PM CDT [facility] Comment: < 8 mIU/mL Hepatitis B surface Antibody (HBsAb). Nonreactive for HBsAb - individual is considered not immune to Hepatitis B Virus infection. Hepatitis B Surface Antibody Quantitative 0.0 <8.0 mIU/mL 09/19/2023 5:23 PM CDT [facility] Comment: Hepatitis B Surface Antibody Numeric Result Interpretation: Nonreactive: <8.0 mIU/mL Indeterminate: 8.0 - 12.0 mIU/mL Reactive: >12.0 mIU/mL Blood BLOOD SPECIMEN / Unknown Lab Venipuncture / Unknown 09/19/2023 3:44 PM CDT 09/19/2023 3:58 PM CDT Lazaro Gonzales MD LAB - CHEMISTRY DEBBI KHAN Performing Organization Address City/[facility]/ZIP Co de Phone Number [address] [address], [facility] [phone] * HEPATITIS B CORE ANTIBODY TOTAL (09/19/2023 3:44 PM CDT) HBc Antibody Total Non-reacti ve Non-reacti ve 09/19/2023 5:23 PM CDT [facility] Blood BLOOD SPECIMEN / Unknown Lab Venipuncture / Unknown 09/19/2023 3:44 PM CDT 09/19/2023 3:58 PM CDT Lazaro Gonzales MD LAB - CHEMISTRY DEBBI KHAN [address] [address], [place] [phone] * HEPATITIS B SURFACE ANTIGEN W RFLX CONFIRMATION (09/19/2023 3:44 PM CDT) Hepatitis B Virus Surface Antigen Non-reacti ve Non-reacti ve 09/19/2023 5:23 PM CDT [facility] Blood BLOOD SPECIMEN / Unknown Lab Venipuncture / Unknown 09/19/2023 3:44 PM CDT 09/19/2023 3:58 PM CDT Lazaro Gonzales MD LAB - CHEMISTRY DEBBI KHAN Performing Organization Address [facility]/ZIP Co de Phone Number [address] [address], [place] [phone] * IRON + TRANSFERRIN PANEL (09/19/2023 3:44 PM CDT) [facility] Iron 77 40 - 150 ug/dL 09/19/2023 5:05 PM CDT [facility] Transferrin 218 174 - 382 mg/dL 09/19/2023 5:05 PM CDT [facility] Transferrin Saturation % 28 16 - 50 % 09/19/2023 5:05 PM CDT [facility] TIBC Calculated 273 240 - 450 ug/dL 09/19/2023 5:05 PM CDT [facility] Blood BLOOD SPECIMEN / Unknown Lab Venipuncture / Unknown 09/19/2023 3:44 PM CDT 09/19/2023 3:58 PM CDT Lazaro Gonzales MD LAB - CHEMISTRY DEBBI KHAN Performing Organization Address [facility] Co de Phone Number [address] [address], [place] [phone] * HEPATITIS C ANTIBODY (09/19/2023 3:44 PM CDT) [facility] Hepatitis C Antibody Non-react ruel Non-reac tive 09/19/2023 5:23 PM CDT [facility] Comment:Hepatitis C Antibody screen indicates no [...] - CHEMISTRY DEBBI KHAN Performing Organization Address [facility]/ZIP Co de Phone Number [facility] [address] [place] [address], [place] [phone] * (ABNORMAL) HEPATITIS A ANTIBODY (09/19/2023 3:44 PM CDT) [facility] Hepatitis A Virus Antibody Total Positive( A) Negative 09/21/2023 6:10 PM CDT [id number] ([facility]) Comment: The positive anti-HAV is consistent with recent or remote Hepatitis A infection or antibody response to HAV vaccination. False positive anti-HAV can occur. Performed By: [employer] [address] [place] [address] Senior Project Coordinator: Buddy King MD, PhD CLIA Number: [id number] Blood BLOOD SPECIMEN / Unknown Lab Venipuncture / Unknown 09/19/2023 3:44 PM CDT 09/19/2023 3:58 PM CDT Lazaro Gonzales MD LAB - CHEMISTRY DEBBI KHAN Performing Organization Address [facility] Co de Phone Number [facility]) [address] [place] [phone] [place] [address] * (ABNORMAL) FERRITIN (09/19/2023 3:44 PM CDT) [facility] Ferritin 660(H) 13 - 204 ng/mL 09/19/2023 5:23 PM CDT [facility] Blood BLOOD SPECIMEN / Unknown Lab Venipuncture / Unknown 09/19/2023 3:44 PM CDT 09/19/2023 3:58 PM CDT Lazaro Gonzales MD LAB - CHEMISTRY DEBBI KHAN Performing Organization Address [facility]/ZIP Co de Phone Number [facility] [address] [place] [address], [place] [phone] * [place] LIVER ELASTOGRAPHY (09/19/2023 2:21 PM CDT) Narrative [...] patients with nonalcoholic fatty liver disease. Gastroenterology 2019;156:7409-2443. Brittani MS, Mackenzie R, Ta GUDINO, et [...] at-risk nonalcoholic steatohepatitis (PIMENTEL) in a [place] cohort and comparison to other non-invasive algorithms. PLoS ONE (2021) 17: o1601883. Mamie AJ, Lee J, Kareen ZM, et al. Enhanced diagnosis of advanced fibrosis and cirrhosis in individuals with NAFLD using FibroScan-based Agile scores. J Hepatol (2022) 78: 247-259. Fibroscan LSM can also be used with laboratory parameters without formulas to assess prognosis. According to the Baveno-VII criteria (Lockwood, 202), Fibroscan LSM ?15 kPa plus a platelet count of ?361w880/L rules out clinically significant portal hypertension (sensitivity [...] FIB-4 score (Ayline et al. Hepatology Communications 2019;3:0513-3215) or NAFLD Fibrosis score (Handy et al. Clinical Gastroenterology and Hepatology 2019;17:0985-6363 using routine clinical data. Note: 1. Fibroscan [...] additional interpretive data was last updated 10/08/22.) [email or web address] Lazaro Gonzales MD PROCEDURE/MINOR SURG ICAL ORDERABLES * DERMATOPATHOLOGY (01/03/2023 11:11 AM CDT) Only the most recent of5 resultswithin the time period is included. Case Report Dermatopathology Report Case: [id number] Authorizing Provider: Jyotsna Tineo DO Collected: 01/03/2023 11:11 AM Ordering Location: [facility] DermPath Lab Received: 01/03/2023 03:19 PM [...] of a non-oriented ellipse of skin measuring [id number] mm. The epidermal surface is unremarkable. The [...] characteristic determined by the Dermatopathology Laboratory at [facility], directed by Dr. Blair Garcia. These tests need not be, and therefore are not, approved by the [place] Food and Drug Administration. The tests are used for clinical purposes. Billing Codes Specimen Charges Stain Charges 40369 1 3 5:22 PM CDT DER[facility]OP[facility]Y LABORATORY Embedded Images 3 5:22 PM CDT DERMATOPATHOLOGY LABORATORY Pathology/Cytolo gy TISSUE SPECIMEN FROM SKIN / Unknown 01/03/2023 11:11 AM CDT 01/03/2023 3:19 PM CDT Jyotsna Tineo DO LAB - PATHOLOGY/C YTOLOGY ORDERABLES DERMATOPATHOLOGY LABORATORY [facility] - Department of Dermatology [address], [address] [phone] * (ABNORMAL) HEMOGLOBIN A1C (03/30/2015 12:13 PM CDT) Only the most recent of5 resultswithin the time period is included. Hemoglobin A1c 7.4(H) 4.2 - 5.8 % 03/30/2015 10:32 PM CDT [facility] Estimated Average Glucose 166 mg/dL 03/30/2015 10:32 PM CDT [facility] Whole Blood BLOOD SPECIMEN WITH EDTA / Unknown Venipuncture / Unknown 03/30/2015 12:13 PM CDT 03/30/2015 12:21 PM CDT Narrative [facility] - 03/30/2015 10:32 PM CDT [place] [employer] recommended the following cutoff levels: [...] - CHEM ISTRY ORDERABLES Performing Organization Address City/State/[facility] Co de Phone Number [facility] [address] * (ABNORMAL) BASIC METABOLIC PANEL (CALCIUM TOTAL) (03/30/2015 12:13 PM CDT) Only the most recent of5 resultswithin the time period is included. [facility] Glucose 151(H) 70 - 125 mg/dL 03/30/2015 [...] >60 mL/min/1.7 3m2 03/30/2015 12:47 PM CDT [facility] eGFR by MDRD >60 >60 mL/min/1.7 3m2 03/30/2015 12:47 PM CDT [facility] Blood BLOOD SPECIMEN / Unknown Venipuncture / Unknown 03/30/2015 12:13 PM CDT 03/30/2015 12:21 PM CDT Ordering Provider Unlisted MD LAB - CHEM ISTRY ORDERABLES [facility] [address] * ALT (03/30/2015 12:13 PM CDT) Only the most recent of5 resultswithin the time period is included. Pathologist [facility] ALT 30 5 - 55 U/L 03/30/2015 12:47 PM CDT [facility] Blood BLOOD SPECIMEN / Unknown Venipuncture / Unknown 03/30/2015 12:13 PM CDT 03/30/2015 12:21 PM CDT Ordering Provider Unlisted MD LAB - CHEM ISTRY ORDERABLES Performing Organization Address City/[facility] de Phone Number [facility] [address] * (ABNORMAL) LIPID PROFILE (03/30/2015 12:13 PM CDT) Only the most recent of3 resultswithin the time period is included. Cholesterol 146 <200 mg/dL 03/30/2015 12:46 PM CDT [facility] Triglycerides 150(H) <150 mg/dL 03/30/2015 12:46 PM CDT [facility] HDL Cholesterol 34(L) >40 mg/dL 03/30/2015 12:46 PM CDT [facility] Chol HDL Ratio 4.3 1.0 - 6.0 03/30/2015 12:46 PM CDT [facility] LDL Calculated 82 65 - 130 mg/dL 03/30/2015 12:46 PM CDT AM LABORATORY VLDL Calculated 30 10 - 40 mg/dL 03/30/2015 12:46 PM CDT [facility] Blood BLOOD SPECIMEN / Unknown Venipuncture / Unknown 03/30/2015 12:13 PM CDT 03/30/2015 12:21 PM CDT [facility] - 03/30/2015 12:46 PM CDT Lipid [...] - CHEM ISTRY ORDERABLES [facility] [address] [place] [address], [place] * CARDIAC RHYTHM STRIP ORDER (08/12/2014 10:27 AM CDT) Narrative 08/12/2014 10:27 AM CDT Ordered by an unspecified provider. Scanned Document CARDIAC SERVICES ORD ERABLES * (ABNORMAL) GLUCOSE - POINT OF CARE (08/06/2014 11:32 AM CHEMICAL LABORATORY CHIEF) Only the most recent of6 resultswithin the time period is included. Glucose WB/POC 251(H) 70 - 125 mg/dL 08/06/2014 1:41 PM CHEMICAL LABORATORY CHIEF [facility] Blood BLOOD SPECIMEN / Unknown 08/06/2014 11:32 AM CHEMICAL LABORATORY CHIEF 08/06/2014 1:41 PM CHEMICAL LABORATORY CHIEF Narrative [facility] - 08/06/2014 1:41 PM CHEMICAL LABORATORY CHIEF NOTIFIED CAREGIVER Francisca العراقي MD LAB - POINT OF CA RE ORDERABLES [facility] [address] * NM MYOCARD PERFUSION SPECT STRESS AND REST (08/06/2014 11:24 AM CHEMICAL LABORATORY CHIEF) Anatomical Region Laterality Modality Chest Nuclear Medicine 08/06/2014 3:37 PM CHEMICAL LABORATORY CHIEF Impressions 08/06/2014 6:21 PM CHEMICAL LABORATORY CHIEF Mild myocardial ischemia felt to be present at the anterior wall and apex. No areas of myocardial infarction or additional areas of myocardial ischemia. Calculated LVEF of 82%. Phone call made to Luh Mccord informing her of preliminary report available in [facility] at hours on 08/06/2014. Narrative 08/06/2014 6:21 PM CHEMICAL LABORATORY CHIEF GATED STRESS/REST SPECT MYOCARDIAL PERFUSION SCAN WITH [...] informing her of preliminary report available in [employer] at hours on 08/06/2014. Francisca العراقي MD NM ORDERABLES * US BREAST LEFT LTD (08/06/2014 8:00 AM CHEMICAL LABORATORY CHIEF) Anatomical Region Laterality Modality Breast Left Ultrasound 08/06/2014 9:33 AM CHEMICAL LABORATORY CHIEF Impressions 08/07/2014 5:09 PM CHEMICAL LABORATORY CHIEF Hypoechoic lesion at lower-outer quadrant of left breast with internal echoes and some posterior acoustical enhancement with etiology uncertain. Comparison with known outside studies necessary as discussed above. BI-RADS Category 0. Report faxed to the office of Dr. Dk Kong at 12:10 p.m. on 08/07/2014. Call subsequently made to Renate Jin to confirm receipt of report. Narrative 08/07/2014 5:09 PM CHEMICAL LABORATORY CHIEF LEFT BREAST SONOGRAPHY: (08/06/2014) HISTORY: History of breast cancer with postoperative change noted in left breast at 08/04/2014 CT angiography of chest. 3.7 x 3.3 cm thick-walled hypodense collection in lower-outer quadrant of left breast was noted at CT study. Followup imaging. FINDINGS: No other comparison studies available at this time. Patient has prior mammography and sonography studies of breasts in [place], [place] according to information provided by patient. [...] states she is due for mammogram in [place], [place] and plans to take study with [...] mammography and sonography studies of breasts in [place], [place] according to information provided by patient. [...] states she is due for mammogram in [place], [place] and plans to take study with [...] ORDERABLES * (ABNORMAL) PT-INR (08/06/2014 6:07 AM CHEMICAL LABORATORY CHIEF) Only the most recent of8 resultswithin the time period is included. PT 20.1(H) 9.6 - 11.5 sec 08/06/2014 6:36 AM CHEMICAL LABORATORY CHIEF [facility] INR 1.92(L) 2 - 3 08/06/2014 6:36 AM CHEMICAL LABORATORY CHIEF [facility] Blood BLOOD SPECIMEN / Unknown Lab Venipuncture / Unknown 08/06/2014 6:07 AM CHEMICAL LABORATORY CHIEF 08/06/2014 6:12 AM CHEMICAL LABORATORY CHIEF Narrative [facility] - 08/06/2014 6:36 AM CHEMICAL LABORATORY CHIEF Recommended therapeutic INR ranges for Oral Anticoagulant Therapy: 2.0-3.0 For prevention of Thrombosis or Embolism and treatment of Venous Thrombosis. 2.5- 3.5 for prevention of Recurrent Embolism or treatment of patients with Mechanical Prosthetic Heart Valves. Arley Ng MD LAB - COAGULATION OR DERABLES [facility] [address] [place] [address], [facility] * PHOSPHORUS BLOOD (08/06/2014 6:07 AM CHEMICAL LABORATORY CHIEF) Phosphorus 3.82 2.3 - 4.7 mg/dL 08/06/2014 7:08 AM CHEMICAL LABORATORY CHIEF [facility] Blood BLOOD SPECIMEN / Unknown Lab Venipuncture / Unknown 08/06/2014 6:07 AM CHEMICAL LABORATORY CHIEF 08/06/2014 6:13 AM CHEMICAL LABORATORY CHIEF Francisca العراقي MD LAB - CHEMISTRY O RDERABLES Performing Organization Address [facility]/ZIP Co de Phone Number [facility] [address] * (ABNORMAL) MAGNESIUM BLOOD (08/06/2014 6:07 AM CHEMICAL LABORATORY CHIEF) Magnesium 1.4(L) 1.6 - 2.6 mg/dL 08/06/2014 7:08 AM CHEMICAL LABORATORY CHIEF [facility] Blood BLOOD SPECIMEN / Unknown Lab Venipuncture / Unknown 08/06/2014 6:07 AM CHEMICAL LABORATORY CHIEF 08/06/2014 6:13 AM CHEMICAL LABORATORY CHIEF Francisca العراقي MD LAB - CHEMISTRY O YOLYERAAUTUMN Performing Organization Address [facility] Co de Phone Number [facility] [address] * TROPONIN I (08/05/2014 5:53 AM CHEMICAL LABORATORY CHIEF) Only the most recent of6 resultswithin the time period is included. Troponin I <0.012 <=0.049 ng/mL 08/05/2014 7:44 AM CHEMICAL LABORATORY CHIEF [facility] Blood BLOOD SPECIMEN / Unknown Lab Venipuncture / Unknown 08/05/2014 5:53 AM CHEMICAL LABORATORY CHIEF 08/05/2014 6:56 AM CHEMICAL LABORATORY CHIEF Narrative [facility] - 08/05/2014 7:44 AM CHEMICAL LABORATORY CHIEF Note: Diagnosis of myocardial infarction requires symptoms [...] - CHEMISTRY DEBBI KHAN Performing Organization Address [facility] Co de Phone Number [facility] [address] * LIPASE BLOOD (08/05/2014 5:53 AM CHEMICAL LABORATORY CHIEF) Lipase 9 8 - 78 U/L 08/05/2014 7:37 AM CHEMICAL LABORATORY CHIEF [facility] Blood BLOOD SPECIMEN / Unknown Lab Venipuncture / Unknown 08/05/2014 5:53 AM CHEMICAL LABORATORY CHIEF 08/05/2014 6:56 AM CHEMICAL LABORATORY CHIEF Arley Ng MD LAB - CHEMISTRY DEBBI KHAN Performing Organization Address City/[facility] Co de Phone Number [facility] [address] * TSH (08/05/2014 5:53 AM CHEMICAL LABORATORY CHIEF) Pathologist [facility] TSH 1.0360 0.35 - 4.94 uIU/mL 08/05/2014 8:07 AM CHEMICAL LABORATORY CHIEF [facility] Blood BLOOD SPECIMEN / Unknown Lab Venipuncture / Unknown 08/05/2014 5:53 AM CHEMICAL LABORATORY CHIEF 08/05/2014 6:56 AM CHEMICAL LABORATORY CHIEF Arley Ng MD LAB - CHEMISTRY DEBBI KHAN Performing Organization Address [facility] de Phone Number [facility] [address] * EKG 12-LEAD (08/05/2014 12:48 AM CHEMICAL LABORATORY CHIEF) Only the most recent of5 resultswithin the time period is included. Ventricular Rate 69 BPM [facility] Atrial Rate 69 BPM [facility] P-R Interval 170 ms [facility] QRS Duration ms 78 ms [facility] Q-T Interval ms 446 ms [facility] QTC Calculation (Bezet) 477 ms [facility] Calculated P Maple 53 degrees [facility] Calculated R Maple -25 degrees [facility] Calculated T Maple 9 degrees [facility] Interpretation EKG Normal sinus rhythm Possible Inferior infarct , age undetermined Nonspecific T wave abnormality Anterolateral leads Abnormal ECG When compared with ECG of 04-AUG-2014 19:14, (Unconfirmed) Nonspecific T wave abnormality, worse in Anterolateral leads Confirmed by Sergio LAI, Carlos ([id number]) on 08/06/2014 3:22:34 PM [facility] 08/05/2014 12:4 8 AM CHEMICAL LABORATORY CHIEF 08/06/2014 3:22 PM CHEMICAL LABORATORY CHIEF Arley Ng MD ECG ORDERABLES [facility] * URINALYSIS ROUTINE W/REFLEX TO CULTURE (08/05/2014 12:11 AM CHEMICAL LABORATORY CHIEF) Color UA Yellow 08/05/2014 12:[address] [facility] Clarity UA Clear 08/05/2014 12:[address] [facility] Glucose UA Negative Negative 08/05/2014 12:[address] [facility] Bilirubin UA Negative Negative 08/05/2014 12:[address] [facility] Ketone UA Negative Negative 08/05/2014 12:[address] [facility] Specific [place] UA 1.010 1.005 - 1.030 08/05/2014 12:[address] [facility] pH UA 5.5 5.0 - 8.0 pH 08/05/2014 12:[address] [facility] Protein UA Negative Negative 08/05/2014 12:[address] [facility] Urobilinogen UA 0.2 0.2 - 1.0 EU/dL 08/05/2014 12:[address] [facility] Nitrite UA Negative Negative 08/05/2014 12:[address] [facility] Blood UA Negative Negative 08/05/2014 12:[address] [facility] Leukocyte UA Negative Negative 08/05/2014 12:[address] [facility] Urine Microscopy Urine microscopy not indicated 08/05/2014 12:[address] [facility] Reflex Status Culture not indicated 08/05/2014 12:[address] [facility] Urine URINE SPECIMEN OBTAINED BY CLEAN CATCH PROCEDURE / Unknown 08/05/2014 12:11 AM CHEMICAL LABORATORY CHIEF 08/05/2014 12:19 AM CHEMICAL LABORATORY CHIEF Arley Ng MD LAB - URINALYSIS ORD ERABLES [facility] [address] [place] [address], [facility] * ECHOCARDIOGRAM 2D WITH DOPPLER (08/05/2014 12:00 AM CHEMICAL LABORATORY CHIEF) 08/05/2014 Narrative [facility] - 08/05/2014 8:01 PM [facility] 1 [place] [address] Transthoracic Echocardiogram 2D, M-mode, Doppler, and Color Doppler Patient: JACKIE LANDIN MR #: [id number] : 1945 Age: 69 years Gender: Female Study date: 05-Aug-2014 Status: Outpatient Room: [address] [place] [address] HR: 70 bpm Height: 62 in Weight: 197.6 lb BSA: 1.9 m BP: 125/ 58 Ordering Physician: [facility] Hospitalist Referring Physician: Unlisted Circulation Librarian: [facility] Circulation Librarian: Carlos Hill MD Fundraising Officer: Alejandra Negron RDCS Summary: - Left ventricle: [...] 20:07:43 Procedure Note Unknown, Provider - 08/05/2014 [facility] 1 [place] [address] Transthoracic Echocardiogram 2D, M-mode, Doppler, and Color Doppler Patient: JACKIE LANDIN MR #: [id number] : 1945 Age: 69 years Gender: Female Study date: 05-Aug-2014 Status: Outpatient Room: [address] [place] [address] HR: 70 bpm Height: 62 in Weight: 197.6 lb BSA: 1.9 m BP: 125/ 58 Ordering Physician: [facility] Hospitalist Referring Physician: Unlisted Circulation Librarian: [facility] Circulation Librarian: Carlos Hill MD Fundraising Officer: Alejandra Negron RDCS Summary: - Left ventricle: [...] 05-Aug-2014 20:07:43 Francisca العراقي MD ECHO ORDERABLES [facility] * CT ANGIO CHEST WITH OR WO CONTRAST [id number] (08/04/2014 7:30 PM CHEMICAL LABORATORY CHIEF) Anatomical Region Laterality Modality Chest Computed Tomogra phy 08/04/2014 8:06 PM CHEMICAL LABORATORY CHIEF Impressions 08/04/2014 9:07 PM CHEMICAL LABORATORY CHIEF 1. No evidence of pulmonary embolism or [...] this study. Call made to Jackie Rudd, community affairs manager in the Emergency Department, who confirmed report available for review in [facility] at 2023 hours on 08/04/2014 with information given to provider. Narrative 08/04/2014 9:07 [address]ICAL LABORATORY CHIEF CT ANGIOGRAPHY CHEST WITH INTRAVENOUS CONTRAST MATERIAL [...] this study. Call made to Jackie Rudd, community affairs manager in the Emergency Department, who confirmed report available for review in [facility] at 2023 hours on 08/04/2014 with information given to provider. Chato Stoll MD CT ORDERABLES * XR CHEST 1VW PORTABLE (08/04/2014 5:37 PM CHEMICAL LABORATORY CHIEF) Only the most recent of2 resultswithin the time period is included. Anatomical Region Laterality Modality Chest Radiographic Gabriela ging 08/04/2014 6:00 PM CHEMICAL LABORATORY CHIEF Impressions 08/04/2014 9:07 PM CHEMICAL LABORATORY CHIEF 1. No gross acute cardiopulmonary disease. Chest appearance similar to 01/21/2014. 2. Mild cardiomegaly. Mild atherosclerotic aorta. No CHF. 3. No consolidation or large pleural effusion. No apparent pneumothorax. Old granulomatous disease. Narrative 08/04/2014 9:07 PM CHEMICAL LABORATORY CHIEF PORTABLE CHEST RADIOGRAPH 08/04/2014: HISTORY: Shortness of [...] RDERABLES * LDL CHOLESTEROL (07/03/2014 12:39 PM CHEMICAL LABORATORY CHIEF) Only the most recent of3 resultswithin the time period is included. LDL Direct 106 0 - 129 mg/dL 07/04/2014 11:50 AM CHEMICAL LABORATORY CHIEF [facility] ([facility]) Comment: INTERPRETIVE INFORMATION: LDL Cholesterol, Direct [...] reference intervals for this test in the [facility] Laboratory Test Directory ([employer]). Blood specimen (specimen) BLOOD SPECIMEN / Unknown Venipuncture / Unknown 07/03/2014 12:39 PM CHEMICAL LABORATORY CHIEF 07/03/2014 12:54 PM CHEMICAL LABORATORY CHIEF Dk Kong MD LAB - CHEMISTRY ORDParveen KHAN [facility] ([facility]) [address] [place], [place] [id number] [place] [address] * MICROALBUMIN URINE RANDOM (03/12/2014 11:04 AM CDT) Only the most recent of2 resultswithin the time period is included. Microalbumin Urine 20.0 0.0 - 20.0 mg/dL 03/12/2014 12:50 PM CDT [facility] Urine URINE / Unknown Venipuncture / Unknown 03/12/2014 11:04 AM CDT 03/12/2014 11:16 AM CDT Dk Kong MD LAB - URINE CHEMISTR Y ORDERABLES Performing Organization Address City/[facility] Co de Phone Number [facility] [address] * (ABNORMAL) PT PTT PANEL (01/21/2014 8:31 PM CDT) PT 20.3(H) 9.6 - 11.5 sec 01/21/2014 9:07 PM CDT [facility] INR 1.91(L) 2 - 3 01/21/2014 9:07 PM CDT [facility] PTT 31.5 24.0 - 32.0 sec 01/21/2014 9:07 PM CDT [facility] Blood BLOOD SPECIMEN / Unknown [...] Medina DO LAB - COAGULATION OR DERABLES [facility] [address] * (ABNORMAL) B-TYPE NATRIURETIC PEPTIDE (01/21/2014 8:31 PM CDT) BNP 134(H) 10 - 100 pg/mL 01/21/2014 9:26 PM CDT [facility] Blood BLOOD SPECIMEN / Unknown 01/21/2014 8:31 PM CDT 01/21/2014 8:45 PM CDT Narrative Authorizing Provider Result Lexy Medina DO LAB - CHEMISTRY ORDE RABLES Performing Organization Address [facility] Co de Phone Number [facility] [address] * MRI BREAST W/WO CONTRAST BILAT (11/10/2011 11:20 AM CDT) Anatomical Region Laterality Modality Breast Bilateral Magnetic Resonan ce 11/10/2011 2:06 PM CDT Narrative 11/10/2011 3:45 PM CDT MRI BILATERAL BREASTS WITH AND WITHOUT CONTRAST COMPUTER ANALYSIS WITH [employer] ON INDEPENDENT WORKSTATION INDICATION: Biopsy proven left breast 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 TECHNIQUE: Precontrast T1 and T2 weighted images with sequential contrast enhanced T1 weighted images of the breast. Standard MIPS were also obtained. 20 mL of Omniscan was injected intravenously. Analysis was performed with [employer] on independent workstation FINDINGS: Right breast: No [...] WITH AND WITHOUT CONTRAST COMPUTER ANALYSIS WITH [employer] ON INDEPENDENT WORKSTATION INDICATION: Biopsy proven left breast 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 TECHNIQUE: Precontrast T1 and T2 weighted images with sequential contrast enhanced T1 weighted images of the breast. Standard MIPS were also obtained. 20 mL of Omniscan was injected intravenously. Analysis was performed with [employer] on independent workstation FINDINGS: Right breast: No [...] BUN POCT 14 7 - 17 mg/[facility] Creatinine POCT 0.7 0.7 - 1.2 mg/dL [facility] POCT TESTING QC Verified yes Yes [facility] POC T TESTING Blood specimen (specimen) BLOOD SPECIMEN / Unknown 11/10/2011 10:13 AM CDT Dayanna Olsen DO LAB - POINT OF CARE ORDERABLES [facility] POCT TESTING [id number] [id number] * GROSS + MICRO EXAM (04/20/2010 8:00 AM CHEMICAL LABORATORY CHIEF) Result CASE NUMBER [id number] Comment: ORDERING [...] similar to that seen in the mass. Progress Man portions are submitted for decalcification in A1. Grossed by KITTY DAUGHERTY M.D. *MICROSCOPIC EXAM Sections of the tissue show a small amount of well formed mature bone. Most of the mass however, is composed of lobulated well differentiated fibrocartilage. Nuclear pleomorphism is fairly mild but occasional double nuclei are seen and some of the nuclei are angulated. The material is being sent to [facility] in consultation. Read by KITTY DAUGHERTY M.D. DIAGNOSIS SOFT TISSUES RIGHT MIDDLE FINGER BIOPSY - BENIGN-APPEARING CARTILAGINOUS LESION, SUGGESTIVE OF SOFT TISSUE CHONDROMA. *Comment The material was sent to [facility] in consultation. Please see the [facility] report and letter signed by Surjit Diaz M.D. RELEASED BY KITTY DAUGHERTY MD MISCELLANEOUS SAMPLES / Unknown 04/20/2010 8:00 AM CHEMICAL LABORATORY CHIEF 04/20/2010 10:58 AM CHEMICAL LABORATORY CHIEF Historical Provider LAB - PATHOLOGY/C YTOLOGY ORDERABLES Care Teams Director Sports Relationship Specialty Start Date End Date Marie Matias MD [address] [place] [address] Internal Medicine 11/23/21
--- OUTSIDE RECORDS SUMMARY | 2024-07-25 14:43 | XMS_ITS | Encounter Summary ---
Author Organization [facility] Address [address] [facility] [place] [address] Care Team Providers Care Director Child Abuse Therapy Name Role Phone Marie Matias MD Unavailable [phone] Encounter Details Date Type Department Care Team (Late Contact Info) Description 01/03/2023 Lab Requisition [facility] - [facility] Lab [address] [facility] [place] [address] Jyotsna Tineo, DO [address] [facility] [address] [place] [address] Social History Tobacco Use Types Packs/Day Years [...] Info) Description 10/08/2024 11:00 AM CDT Appointment [facility] [address] [place] [phone] Lazaro Gonzales MD [address] [place] [phone] 10/08/2024 1:00 PM CDT Office Visit [facility] - GI [address] [facility] [place] [phone] Lazaro Gonzales MD [address] [place] [phone] documented as of this encounter Procedures Procedure Name Priority Date/Time Associated Diagnosis Comments DERMATOPATHOLOGY Routine 01/03/2023 11:1 1 AM CDT documented in this encounter Results * DERMATOPATHOLOGY (01/03/2023 11:11 AM CDT) Case Report Dermatopathology Report Case: [id number] Authorizing Provider: Jyotsna Tineo DO Collected: 01/03/2023 11:11 AM Ordering Location: [facility] Lab Received: 01/03/2023 03:19 PM Pathologist: [...] of a non-oriented ellipse of skin measuring [id number] mm. The epidermal surface is unremarkable. The [...] characteristic determined by the Dermatopathology Laboratory at [facility], directed by Dr. Blair Garcia. These tests need not be, and therefore are not, approved by the [place] Food and Drug Administration. The tests are used for clinical purposes. Billing Codes Specimen Charges Stain Charges 42967 1 3 5:22 PM CDT DERMATOPATHOLOGY LABORATORY Embedded Images 3 5:22 PM CDT DERMATOPATHOLOGY LABORATORY Pathology/Cytolo gy TISSUE SPECIMEN FROM SKIN / Unknown 01/03/2023 11:11 AM CDT 01/03/2023 3:19 PM CDT Jyotsna Tineo DO LAB - PATHOLOGY/C YTOLOGY ORDERABLES DERMATOPATHOLOGY LABORATORY [facility] - Department of Dermatology [facility] Medicine [address] [place] [address], [address] [phone] documented in this encounter Visit Diagnoses Not on filedocumented in this encounter Care Teams Director Child Abuse Therapy Relationship Specialty Start Date End Date Marie Matias MD [address] [place] [address] Internal Medicine 11/23/21 documented as of this encounter
--- OUTSIDE RECORDS SUMMARY | 2024-07-25 14:43 | XMS_ITS | Continuity of Care Document ---
Author Organization [facility] Address [address] [place] [address] [address] [place] [address] Phone Care Team Providers Care Duplex Trimmer Name Role Phone Angel OD, Jr Unavailable Unavailable Procedures Procedure Date Office/outpatient Visit, Est Eye Exam, New Patient Advance Directives Directive Yes / No Effective Date File Name No Information Encounters Encounter Description Practice Location Reason(s) For Visit Diagnoses Date Provider Providers Copied on Encounter Office/outpat ient Visit, Est [facility], [address], [place], [place], [id number], tel:[phone] [facility] No Information Sep-2 5-200 8 Angel OD Jr. [address], [place], [place], [facility], [place]. tel:[phone] [facility], [address] [place] [address] [address], [place], [place], [id number], tel:[phone] [facility] No Information Sep-1 8-200 8 Angel OD Jr. [address] , [address], [place], [address], [place]. tel:[phone] Family History Family Member Type Diagnosis Age At Onset No Information Payers Payer name Insurance type Covered republican ID Authoriza tion(s) No Information Social History [...]
--- OUTSIDE RECORDS SUMMARY | 2024-07-25 14:43 | XMS_ITS | Clinical Summary ---
Author Organization [facility] Address [address] [place] [address] Care Team Providers Care Sales Estimator Name Role Phone Parveen Escobar MD Primary Care Provider [phone] Allergies Active Allergy Reactions Criticality Noted Date [...] 02/04/202408/2020 Insurance MEDICARE PART A AND B [facility] [id number] Member Subscriber Plan / Payer (Ef fective 2020-Present) Name:Jackie Waddell Relation to Subscriber:Self Name:Jackie Waddell Payer ID:[id number] (NAIC) Group ID:Not on file Type:Supplemental Address: [place] [id number] Care Teams Sales Estimator Relationship Specialty Start Date End Date Parveen Escobra MD [address] [place] [phone] PCP - General Internal Medicine 10/15/20
--- OUTSIDE RECORDS SUMMARY | 2024-07-25 14:43 | XMS_ITS | Referral Summary ---
Author Organization [facility] [address] Address [address] [place] [address] Care Team Providers Care Inside Sales Director Name Role Phone Pinky Louise MD Unavailable [phone] Mackenzie Tobin NP Unavailable [phone] Loki Viramontes MD Unavailable [phone] Frank Moses MD Unavailable [phone] Nicole Sierra NP Primary Care Provider [phone] Encounters Date Type Department Care Team Description 07/18/2024 Telephone [facility] Cardiology [facility] Advanced Medicine 8th [place] [address] [place] [address] Ignacio Obregon MD 07/18/2024 Plan of Care Documentation [facility] Medical Office Bldg 1 OP Physical Therapy [address] [place] [address] [place] [address] 07/18/2024 10:15 AM HOSEMAN Therapy [facility] Medical Office Bldg 1 OP Physical Therapy [address] [place] [address] [place] [address] Vesna Lopez, PT Dizziness and giddiness (Primary Dx) 07/11/2024 2:00 PM HOSEMAN Office Visit [facility] Cardiology [facility] Advanced Medicine 8th [place] [address] [place] [address] SotoJyotsna trejo NP Longstanding persistent atrial fibrillation (CMS/HCC) ([facility]) (Primary Dx); S/P placement of cardiac pacemaker; Atrial fibrillation with RVR (CMS/HCC) ([facility]) 07/11/2024 1:30 PM HOSEMAN Ancillary Procedure [facility] Cardiology [address] [facility] 8th [place] [address] [place] [address] Sinus node dysfunction (CMS/HCC) ([facility]); Adjustment and management of cardiac pacemaker 07/04/2024 Telephone [facility] Otolaryngology [address] [place] [address] [phone] Brie Vincent LPN Order vestibular rehab 07/04/2024 4:15 PM HOSEMAN Telemedicine [facility] Otolaryngology [address] [place] [phone] Mehul Martinez II, MD Dizziness and giddiness (Primary Dx) 07/04/2024 1:00 PM HOSEMAN Procedure visit [facility] Otolaryngology [address] [place] [address] [phone] Deanna Galvez Dizziness and giddiness (Primary Dx) 06/20/2024 1:45 PM HOSEMAN Procedure visit [facility] Otolaryngology [address] [place] [phone] Deanna Galvez Dizziness and giddiness (Primary Dx); Sensorineural hearing loss (SNHL) of both ears; Tinnitus of both ears 06/20/2024 2:00 PM HOSEMAN Office Visit [facility] Otolaryngology [address] [place] [phone] Mehul Martinez II, MD Sensorineural hearing loss (SNHL) of both ears (Primary Dx); Dizziness and giddiness 05/13/2024 Orders Only [facility] Cardiology [facility] 8th [place] [address] [place] [address] Ignacio Obregon MD 05/01/2024 Telephone [facility] Cardiology [address] [place] [address] Sindhu Patrick NP Med Management [...] 1 tablet (3 mg total) by mouth machine operator hop picker before breakfast Active aspirin 325 mg tabletIndicati [...] 10/20/2022 Assessment & Plan (07/11/2024 3:34 PM HOSEMAN): -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 as programmed -Lead impedances, sensing, and thresholds are stable -No programming changes -Continue remote monitoring quarterly Assessment & Plan (01/09/2024 4:12 PM CDT): 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 as programmed Lead impedances, sensing, and thresholds are stable No programming changes Continue remote monitoring quarterly Atrial fibrillation ([facility]) 10/11/2022 Sinus node dysfunction ([facility]) 10/10/2022 Assessment & Plan (10/10/2022 7:50 PM CDT): As per above. Chronic kidney disease (CKD), stage IV (severe) ([facility]) 10/10/2022 Assessment & Plan (10/11/2022 11:48 AM CDT): Stable on AM BMP -Avoid renal toxins, renally dose meds DM2 (diabetes mellitus, type 2) 10/10/2022 Assessment & Plan (10/11/2022 11:48 AM CDT): -Continue Jardiance. -Hold her rybelsus -SSI Acute on chronic congestive heart failure, unspecified heart failure type 08/27/2022 Renal mass 06/27/2022 Overview (06/27/2022): Added automatically from request for surgery [id number] A-fib ([facility]) 02/14/2022 Assessment & Plan (10/11/2022 [...] (07/11/2019): Added automatically from request for surgery [id number] Coronary artery disease invo lving [place] coronary artery of [place] heart without angina pectoris 11/19/2018 Angina pectoris, unstable ([facility]/HCC) 11/07/2018 Overview (11/07/2018): Added automatically from request for surgery [id number] GI bleed 08/06/2018 Assessment & Plan (08/29/2020 [...] a associated with type 2 diabetes mellitus ([facility]) 07/21/2015 Overview (09/09/2016): Type 2 [...] Abnormal stress test Longstanding persistent atrial fibrillation ([facility]) 11/13/2013 Overview (09/09/2016): Paroxysmal atrial fibrillation Assessment & Plan (07/11/2024 3:39 PM HOSEMAN): -Persistent AF and bradycardia s/p dual chamber [...] EF 72%, fixed apical defect c/w prior [place]. Assessment & Plan (08/28/2020 7:53 PM CDT): - TTE in 09/2018 w/ G3DD. Home metop XL 12.5, losartan 25, lasix 20. - PCI 2018 w/ 1 stent to LAD. MPI stress 05/2020 w/ EF 72%, fixed apical defect c/w prior NC. Essential hypertension 09/13/201910/20 Assessment & Plan (02/16/2022 [...] often do you attend chur ch or hinduism services? Never 08/29/2022 Do you belong to any clubs o r organizations such as jewish groups, unions, fraternal or athletic groups, or [...] place to sleep or slept in a intermediate (including now)? No 08/29/2022 Personal Safety Answer Date Recorded Have you ever been in or are you currently in a harmful physical or emotional relationship or is someone making you feel afraid or unsafe? Denies 10/10/2022 Comments No Sex and Gender Information Value Date Recorded Sex Assigned at Not on file Legal Sex Female 2:00 AM HOSEMAN Gender Identity Not on file Sexual Orientation Not on file Last Filed Vital Signs Vital Sign Reading Time Taken Comments Blood Pressure 106/64 04/22/2024 11:37 AM HOSEMAN Pulse 91 07/11/2024 1:22 PM HOSEMAN Temperature 36.7 C (98.1 F) 04/14/2023 8:56 AM HOSEMAN Respiratory Rate 18 06/20/2024 1:50 PM HOSEMAN Oxygen Saturation 95% 07/11/2024 1:22 PM HOSEMAN Inhaled Oxygen Concentration - - Weight 73.3 kg (161 lb 9.6 oz) 07/11/2024 1:22 P M HOSEMAN Height 157.5 cm (5' 2 ) 07/11/2024 1:22 PM HOSEMAN Body Mass Index 29.56 07/11/2024 1:22 PM HOSEMAN Plan of Treatment Not on file Medical Devices Implanted Type Area Support Service Tech Device Identifier Shelf Expiration Date Model / Serial / Lot [employer] [id number] System 6-12fr Mvp Venous Closure Vascade - [id number] Implanted:Qt y: 1 on 08/28/2020 by Crow Gramajo MD at [facility] Collagen Left: Femoral [employer] 06/23/2022 [id number] / / [id number] Description:LFV sheath [employer] [id number] System 6-12fr Mvp Venous Closure Vascade - [id number] Implanted:Qt y: 1 on 08/28/2020 by Crow Gramajo MD at [facility] Collagen Right: Femoral [employer] 06/23/2022 [id number] / / [id number] Description:RFV sheath X 1 [employer] Tendril Sts 6fr 52cm Is-1 Connector Active Fixation Bipolar Soft /52 - [id number] - [id number] Implanted:Qt y: 1 on 10/10/2022 by Ignacio Obregon MD at [facility] Lead Right: Ventricle [employer] 08/02/20258TC/52 / [id number] / [employer] Tendril Sts 6fr 46cm Is-1 Connector Bipolar Active Fixation 46 - [id number] - [id number] Implanted:Qt y: 1 on 10/10/2022 by Ignacio Obregon MD at [facility] Lead Right: Atria [employer] 08/02/20252087TC/46 / [id number] / [employer] Joanne [id number] Device Closure Watchman Pebax Nitinol [place] Iridium Pet 24mm L75cm Od12 Fr Odsec14 Fr [address] Stopcock Y Adapter Self Expand Proximal Face Sterile Disposable Left Atrial Appendage - [id number] Implanted:Qt y: 1 on 08/28/2020 by Ignacio Obregon MD at [facility] Other - see comments Left: Heart [employer] Joanne 03/23/2022 [id number] / / [id number] Description:Left atrial appe ndage closure device with delivery system [employer] Inc Assurity Mri [id number] 2 Chamber Is-1 Connector Thk6mm Pacemaker [id number] - [id number] - [id number] Implanted:Qt y: 1 on 10/10/2022 by Ignacio Obregon MD at [facility] Pacemaker Right: Chest Wall [employer] 03/04/2024 [id number] / [id number] / [id number] Medtronic Usa Inc X [id number] Resolute Stefano 3.5mm 2.1-2.7fr 18mm 140cm Rapid Exchange - [id number] Implanted:Qt y: 1 on 11/26/2018 by Ildefonso Barrios MD PhD at [facility] Stent Medtronic Inc 09/05/2020 [id number] / / [id number] Jingit [employer] Inc Vascade Mvp 6-12fr Venous Closure [id number] - [id number] - [id number] Implanted:Qt y: 1 on 10/10/2022 by Ignacio Obregon MD at [facility] Vascular Closure Device Right: Femoral Vein [employer] Inc 03/15/2024 [id number] / [id number] / [id number] Lens Bilateral: Eye Device Lizzy Watchman Procedure - [id number] Implanted:Qt y: 1 on 08/28/2020 by Ignacio Obregon MD at [facility] Vycon WMPERPROCDEVICE 1-3 PC / / Procedures Procedure Name Priority Date/Time Associated Diagnosis Comments DEVICE CHECK - IN OFFICE Routine 07/11/2024 1:13 PM HOSEMAN Sinus node dysfunction (CMS/HCC) (HCC) Adjustment and management of cardiac pacemaker DEVICE CHECK - REMOTE Routine 05/13/2024 4:00 AM HOSEMAN POCT LIPID PANEL Routine 04/22/2024 11:4 3 AM HOSEMAN Lipid screening EGFR Routine 10/11/2022 4:40 AM CDT HEMOGLOBIN A1C STAT 08/28/2022 3:07 AM CDT from Last 3 Months or Most Recently Relevant to Health Maintenance Results * DEVICE CHECK - IN OFFICE (07/11/2024 1:13 PM HOSEMAN) Anatomical Region Laterality Modality Other 07/11/2024 2:00 AM HOSEMAN Narrative 07/12/2024 10:54 AM HOSEMAN Interpretation Summary: Battery and Leads (BL) Normal [...] DEVICE CHECK - REMOTE (05/13/2024 4:00 AM HOSEMAN) Anatomical Region Laterality Modality Other 05/13/2024 4:00 AM HOSEMAN Narrative 05/19/2024 1:20 PM HOSEMAN Interpretation Summary: Battery and Leads (BL) Normal parameters noted on battery and lead(s) --- 5 to 9 years remaining (this is an estimate based on prior usage) Presenting Rhythm (PA) Atrial Fibrillation or Flutter Ventricular Sensing (VS) [...] estimate based on prior usage) Presenting Rhythm (PA) Atrial Fibrillation or Flutter Ventricular Sensing (VS) [...] * POCT lipid panel (04/22/2024 11:43 AM HOSEMAN) Cholesterol, POC 119 mg/dL HDL, POC 35 mg/dL Triglycerides, POC 102 mg/dL LDL Cholesterol POC 64 mg/dL Chol/HDL Ratio, POC 1.9 Non-HDL Cholesterol, POC 85 mg/dL Cholesterol Total, POC 119 mg/dL Capillary blood 04/22/2024 1 1:43 AM HOSEMAN Sindhu Patrick NP POINT OF CARE TEST ORDERA BLES Final Result * (ABNORMAL) eGFR (10/11/2022 4:40 AM CDT) eGFR 41(L) 90 - 130 mL/min/1. 73 m2 [facility] Comment: Interpretive Data Reference Interval Normal >/= [...] MD LAB BLOOD ORDERABLES Final R esult [facility] Department [place] [address] * (ABNORMAL) Hemoglobin A1c (08/28/2022 3:07 AM [...] ORDERABLES Final Re sult LIZZIE GARCIA [facility] Department [place] [address] from Last 3 Months or Most Recently Relevant to Health Maintenance Insurance [facility]ICARE [facility] Member Subscriber Plan / Payer (Ef fective 2020-Present) Name:Jackie Landin Relation to Subscriber:Self Name:Jackie Landin Payer ID:[id number] Group ID:[id number] Type:COMMERCIAL Address: [address] [place] [phone] [facility]ARE [facility] MEDICARE MEDICARE MEDICARE [facility] Advance Directives For more information, please contact: [phone] * Full Code (Latest Code Status on [...] 4:14 AM 11/07/2020 6:56 PM Care Teams Inside Sales Director Relationship Specialty Start Date End Date Nicole Sierra NP [address] [place] [address] PCP - General Nurse Practitioner 07/20/23 Pinky Louise MD Consulting Physician Gastroenterology 10/02/18 Mackenzie Tobin NP [address] [address] Nurse Practitioner Medical Oncology 02/09/22 [place] [address] [place] [address] Consulting Physician Urology 08/06/22 [place] [address] [place] [address] Consulting Physician Cardiology 08/06/22
--- OUTSIDE RECORDS SUMMARY | 2024-07-25 14:43 | XMS_ITS | Encounter Summary ---
Author Organization [facility] Address [address] [place] [address] Care Team Providers Care Revenue Tax Specialist Name Role Phone Marie Matias MD Unavailable [phone] Encounter Details Date Type Department Care Team (Late Contact Info) Description 11/22/2022 Lab Requisition [facility] - Derm[facility] Lab [address] [facility] [place] [address] Jyotsna Tineo, DO [address] [facility] [address] [place] [address] Social History Tobacco Use Types Packs/Day Years [...] AM CDT Appointment [facility] [address] [place] [phone] Lazaro Gonzales MD [address] [place] [phone] 10/08/2024 1:00 PM CDT Office Visit [facility] - GI [address] [facility] [place] [phone] Lazaro Gonzales MD [address] [place] [phone] documented as of this encounter Procedures Procedure Name Priority Date/Time Associated Diagnosis Comments DERMATOPATHOLOGY Routine 11/21/2022 1:39 PM CDT documented in this encounter Results * DERMATOPATHOLOGY (11/21/2022 1:39 PM CDT) Case Report Dermatopathology Report Case: [id number] Authorizing Provider: Jyotsna Tineo DO Collected: 11/21/2022 01:39 PM Ordering Location: [facility] Received: 11/22/2022 12:49 PM [...] characteristic determined by the Dermatopathology Laboratory at [facility], directed by Dr. Blair Garcia. These tests need not be, and therefore are not, approved by the [place] Food and Drug Administration. The tests are used for clinical purposes. Billing Codes Specimen Charges Stain Charges 39796 1 3 4:14 PM CDT DERMATOPATHOLOGY LABORATORY Embedded Images 3 4:14 PM CDT DERMATOPATHOLOGY LABORATORY Pathology/Cytolo gy TISSUE SPECIMEN FROM SKIN / Unknown 11/21/2022 1:39 PM CDT 11/22/2022 12:49 PM CDT Jyotsna Tineo DO LAB - PATHOLOGY/C YTOLOGY ORDERABLES DERMATOPATHOLOGY LABORATORY [facility] - Department of Dermatology [facility] Medicine [address] [facility] 3rd Floor [address] [phone] documented in this encounter Visit Diagnoses Not on filedocumented in this encounter Care Teams Revenue Tax Specialist Relationship Specialty Start Date End Date Marie Matias MD [address] [place] [address] Internal Medicine 11/23/21 documented as of this encounter
--- OUTSIDE RECORDS SUMMARY | 2024-07-25 14:43 | XMS_ITS | Clinical Summary ---
Author Organization [facility] Address [address] [place] [address] Care Team Providers Care Technology Project Manager Name Role Phone Unavailable Primary Care Provider [...]
--- OUTSIDE RECORDS SUMMARY | 2024-07-25 14:43 | XMS_ITS ---
Author Organization [facility] [address] Address [address] [place] [address] Care Team Providers Care Marine Fuel Dock Attendant Name Role Phone Pinky Louise MD Unavailable [phone] Mackenzie Tobin NP Unavailable [phone] Loki Viramontes MD Unavailable [phone] Frank Moses MD Unavailable [phone] Nicole Sierra NP Primary Care Provider [phone] Active Problems Problem Noted Date Diagnosed Date Sensorineural hearing loss (SNHL) of both ears 0 06/20/2024 Dizziness and giddiness 06/20/2024 S/P placement of cardiac pacemaker 10/20/2022 Assessment & Plan (07/11/2024 3:34 PM CONSULTING SME): -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 as [...] Chronic kidney disease (CKD), stage IV (severe) ([facility]) 10/10/2022 Assessment & Plan (10/11/2022 11:48 AM CDT): Stable on AM BMP -Avoid renal toxins, renally dose meds DM2 (diabetes mellitus, type 2) 10/10/2022 Assessment & Plan (10/11/2022 11:48 AM CDT): -Continue Jardiance. -Hold her rybelsus -SSI Acute on chronic congestive heart failure, unspecified heart failure type 08/27/2022 Renal mass 06/27/2022 Overview (06/27/2022): Added automatically from request for surgery [id number] A-fib ([facility]) 02/14/2022 Assessment & Plan (10/11/2022 11:47 [...] (07/11/2019): Added automatically from request for surgery [id number] Coronary artery disease invo lving [place] coronary artery of [place] heart without angina pectoris 11/19/2018 Angina pectoris, unstable (CMS/HCC) 11/07/2018 Overview (11/07/2018): Added automatically from request for surgery [id number] GI bleed 08/06/2018 Assessment & Plan (08/29/2020 [...] left breast in female, estrogen receptor positive ([facility]) 07/21/2015 Overview (09/09/2016): Malignant neoplasm of [...] a associated with type 2 diabetes mellitus ([facility]) 07/21/2015 Overview (09/09/2016): Type 2 diabetes [...] Abnormal stress test Longstanding persistent atrial fibrillation ([facility]) 11/13/2013 Overview (09/09/2016): Paroxysmal atrial fibrillation Assessment & Plan (07/11/2024 3:39 PM CONSULTING SME): -Persistent AF and bradycardia s/p dual chamber [...] EF 72%, fixed apical defect c/w prior [place]. Assessment & Plan (08/28/2020 7:53 PM CDT): - TTE in 09/2018 w/ G3DD. Home metop XL 12.5, losartan 25, lasix 20. - PCI 2018 w/ 1 stent to LAD. MPI stress 05/2020 w/ EF 72%, fixed apical defect c/w prior [place]. Essential hypertension 09/13/201910/20 Assessment & Plan (02/16/2022 [...]
--- OUTSIDE RECORDS SUMMARY | 2024-07-25 14:43 | XMS_ITS | Clinical Summary ---
Author Organization [facility] Address [address] [place] [address] Care Team Providers Care Ham Stringer Name Role Phone Marie Matias MD Unavailable [phone] Source Comments [facility],non-owned Affiliates and Associated Physician Practices is amultiple site organization consisting of ambulatory clinics and hospital sitesin [place], [place], [place] and [place]. This disclosure is being madepursuant to the Care Everywhere program and may not contain all information available regarding this patient. Last updated 18.[facility] Allergies No known active allergies Medications * [...] 1 Tab by mouth once daily. Active Gomer-3 Fatty Acids 1200 MG CAPS Take 1 [...] rybelsus -SSI Coronary artery disease invo lving platinum coronary artery of platinum heart without angina pectoris 11/19/2018 09/21/2023 Angina pectoris, unstable 11/07/20182023 Overview (09/21/2023): Added automatically from request for surgery [id number] H/O TIA (transient ischemic attack) and stroke [...] Comments Blood Pressure 126/86 04/09/2024 12:40 PM WINERY WORKER Pulse 98 04/09/2024 12:40 PM WINERY WORKER Temperature 36.6 C (97.8 F) 08/06/2014 11:36 AM WINERY WORKER Respiratory Rate 10 03/07/2022 7:51 AM CDT Oxygen Saturation 97% 04/09/2024 12:40 PM WINERY WORKER Inhaled Oxygen Concentration - - Weight 72.7 kg (160 lb 3.2 oz) 04/09/2024 12:40 PM WINERY WORKER Height 157.5 cm (5' 2 ) 04/09/2024 12:40 PM WINERY WORKER Body Mass Index 29.3 04/09/2024 12:40 PM WINERY WORKER Plan of Treatment Upcoming Encounters Date Type Department Care Team (Late st Contact Info) Description 10/08/2024 11:00 AM CDT Appointment [facility] [address] [place] [address] Lazaro Gonzales MD [address] [place] [address] 10/08/2024 1:00 PM CDT Office Visit [facility] [place] [address] [facility] [place] [address] Lazaro Gonzales MD [address] [place] [address] Health Maintenance Due Date Last [...] COMPREHENSIVE METABOLIC PANEL Routine 04/09/2024 2:07 PM WINERY WORKER Other cirrhosis of liver (HCC) HEPATITIS C [...] (ABNORMAL) COMPREHENSIVE METABOLIC PANEL (04/09/2024 2:07 PM WINERY WORKER) BUN 22 7 - 26 mg/dL 04/09/2024 3:33 PM [facility] Creatinine 1.33(H) 0.56 - 0.96 mg/dL 04/09/2024 3:33 PM [facility] Sodium 140 136 - 145 mmol/L 04/09/2024 3:33 PM [facility] Potassium 3.9 3.5 - 4.5 mmol/L 04/09/2024 3:33 PM [facility] Chloride 104 98 - 107 mmol/L 04/09/2024 3:33 PM [facility] CO2 22 22 - 29 mmol/L 04/09/2024 3:33 PM [facility] Glucose 160(H) 70 - 99 mg/dL 04/09/2024 3:33 PM [facility] Calcium 9.4 8.4 - 10.2 mg/dL 04/09/2024 3:33 PM [facility] Protein Total 7.6 6.0 - 8.3 g/dL 04/09/2024 3:33 PM [facility] Albumin 3.4 3.4 - 5.0 g/dL 04/09/2024 3:33 PM [facility] Bilirubin Total 0.6 0.2 - 1.2 mg/dL 04/09/2024 3:33 PM [facility] Alkaline Phosphatase 155(H) 40 - 150 U/L 04/09/2024 3:33 PM [facility] ALT 12 5 - 55 U/L 04/09/2024 3:33 PM [facility] AST 20 5 - 34 U/L 04/09/2024 3:33 PM [facility] Anion Gap 14 6 - 16 04/09/2024 3:33 PM [facility] BUN/Creatinine Ratio 17 7 - 23 04/09/2024 3:33 PM [facility] Osmolality Calculated 297(H) 275 - 295 mOsm/kg 04/09/2024 3:33 PM [facility] Albumin/Globulin Ratio 0.8(L) 1.1 - 2.3 04/09/2024 3:33 PM [facility] eGFR by CKD-EPI 41(L) >=90 mL/min/1.7 3 m2 04/09/2024 3:33 PM [facility] Blood BLOOD SPECIMEN / Unknown Lab Venipuncture / Unknown 04/09/2024 2:07 PM WINERY WORKER 04/09/2024 3:[address] [facility] Lazaro Gonzales MD LAB - CHEMISTRY DEBBI KHAN [facility] Organization Address [facility]/State/[facility] Co de Phone Number [facility] [address] [place] [id number] [phone] * HEPATITIS C ANTIBODY (09/19/2023 3:44 PM CDT) Hepatitis C Antibody Non-react ruel Non-reac tive 09/19/2023 5:23 PM CDT [facility] Comment:Hepatitis C Antibody screen indicates [...] 3:44 PM CDT 09/19/2023 3:58 PM CDT Lazrao Gonzales MD LAB - CHEMISTRY DEBBI KHAN [facility] [place] [id number] [place] [address], [facility] [phone] * (ABNORMAL) HEMOGLOBIN A1C (03/30/2015 12:13 PM CDT) Hemoglobin A1c 7.4(H) 4.2 - 5.8 % 03/30/2015 10:32 PM CDT [facility] Estimated Average Glucose 166 mg/dL 03/30/2015 10:32 PM CDT [facility] Whole Blood BLOOD SPECIMEN WITH EDTA / Unknown Venipuncture / Unknown 03/30/2015 12:13 PM CDT 03/30/2015 12:21 PM CDT Narrative [facility] - 03/30/2015 10:32 PM CDT [employer] recommended the following cutoff levels: [...] Unlisted MD LAB - CHEM ISTRY ORDERABLES [facility] [address] [place] [address], [facility] * MICROALBUMIN URINE RANDOM (03/12/2014 11:04 AM CDT) Microalbumin Urine 20.0 0.0 - 20.0 mg/dL 03/12/2014 12:50 PM CDT [facility] Urine URINE / Unknown Venipuncture / Unknown 03/12/2014 11:04 AM CDT 03/12/2014 11:16 AM CDT Dk Kong MD LAB - URINE CHEMISTR Y ORDERABLES [facility] [address] from Last 3 Months or Most Recently Relevant to Health Maintenance Advance Directives * Full Code (Latest Code Status on File) Date Activated Date Inactivated Comments 08/04/2014 10:20 PM 08/06/2014 5:15 PM Care Teams Ham Stringer Relationship Specialty Start Date End Date Marie Matias MD [address] [place] [address] Internal Medicine 11/23/21
--- OUTSIDE RECORDS SUMMARY | 2024-07-25 14:43 | XMS_ITS | Encounter Summary ---
Author Organization [facility] Address [address] [place] [address] Phone Care Team Providers Care Aircraft Maintenance Manager Name Role Phone Pinky Louise MD Unavailable [phone] Mackenzie Tobin NP Unavailable [phone] Loki Viramontes MD Unavailable [phone] Frank [place] MD Unavailable [phone] Nicole Sierra NP Primary Care Provider [phone] Encounter Details Date Type Department Care Team (Late st Contact Info) Description 07/18/2024 Telephone [facility] Cardiology [address] [facility] Advanced Medicine 8th [place] [address] [place] [phone] Ignacio Obregon MD [address] [facility] [address] [place] [address] Social History Tobacco Use Types Packs/Day Years [...] often do you attend chur ch or sabianism services? Never 08/29/2022 Do you belong to any clubs o r organizations such as yazidi groups, unions, fraternal or athletic groups, or [...] place to sleep or slept in a long-term (including now)? No 08/29/2022 Personal Safety Answer Date Recorded Have you ever been in or are you currently in a harmful physical or emotional relationship or is someone making you feel afraid or unsafe? Denies 10/10/2022 Comments No Sex and Gender Information Value Date Recorded Sex Assigned at Not on file Legal Sex Female 2:00 AM SIZE MIXER Gender Identity Not on file Sexual Orientation Not on file documented as of this encounter Miscellaneous Notes * Telephone Encounter - Krystin Wilson - 07/18/2024 2:12 PM CST PT CALLED TO LET YOU KNOW SHE WILL GET ECHO AT [place] ON 07/25/2024 MIXER documented in this encounter Plan of Treatment Not on file documented as of this encounter Visit Diagnoses Not on filedocumented in this encounter Care Teams Aircraft Maintenance Manager Relationship Specialty Start Date End Date Nicole Sierra NP [address] [place] [address] PCP - General Nurse Practitioner 07/20/23 Pinky Louise MD Consulting Physician Gastroenterology 10/02/18 Mackenzie Tobin NP [address] [place] [address] Nurse Practitioner Medical Oncology 02/09/22 [place] [address] [place] [address] Consulting Physician Urology 08/06/22 [place] [address] [place] [address] Consulting Physician Cardiology 08/06/22 documented as of this encounter
--- OUTSIDE RECORDS SUMMARY | 2024-07-25 14:43 | XMS_ITS | Clinical Summary ---
Author Organization [facility] [address] Address [address] [place] [address] Care Team Providers Care Aircraft Powerplant Repairer Name Role Phone Pinky Louise MD Unavailable [phone] Mackenzie Tobin NP Unavailable [phone] Loki Viramontes MD Unavailable [phone] Frank Moses MD Unavailable [phone] Nicole Sierra NP Primary Care Provider [phone] Allergies Active Allergy Reactions Criticality Noted Date [...] 1 tablet (3 mg total) by mouth toddler caregiver before breakfast Active aspirin 325 mg tabletIndicati [...] 10/20/2022 Assessment & Plan (07/11/2024 3:34 PM AIR INTERCEPT CONTROLLER): -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 as programmed -Lead impedances, sensing, and thresholds are stable -No programming changes -Continue remote monitoring quarterly Assessment & Plan (01/09/2024 4:12 PM CDT): 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 as programmed Lead impedances, sensing, and thresholds are stable No programming changes Continue remote monitoring quarterly Atrial fibrillation (CMS/HCC) 10/11/2022 Sinus node dysfunction ([facility]) 10/10/2022 Assessment & Plan (10/10/2022 7:50 PM CDT): As per above. Chronic kidney disease (CKD), stage IV (severe) ([facility]) 10/10/2022 Assessment & Plan (10/11/2022 11:48 AM CDT): Stable on AM BMP -Avoid renal toxins, renally dose meds DM2 (diabetes mellitus, type 2) 10/10/2022 Assessment & Plan (10/11/2022 11:48 AM CDT): -Continue Jardiance. 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 Assessment & Plan (08/28/2020 7:53 PM CDT): - TTE in 09/2018 w/ G3DD. Home metop XL 12.5, losartan 25, lasix 20. - PCI 2018 w/ 1 stent to LAD. MPI stress 05/2020 w/ EF 72%, fixed apical defect c/w prior AR. Essential hypertension 09/13/201910/20 Assessment & Plan (02/16/2022 [...] Department Care Team Description 07/18/2024 10:15 AM AIR INTERCEPT CONTROLLER Therapy [facility] Medical Office Bldg 1 OP Physical Therapy [address] [place] [address] Vesna Lopez, PT Dizziness and giddiness (Primary Dx) 07/18/2024 Telephone [facility] Cardiology [address] [place] [address] [place] [address] Ignacio Obregon MD 07/18/2024 Plan of Care Documentation [facility] Medical Office Bldg 1 OP Physical Therapy [address] [place] [address] 07/11/2024 2:00 PM AIR INTERCEPT CONTROLLER Office Visit [facility] Cardiology [address] [place] [address] [place] [address] Jyotsna Soto, ADRIANA Longstanding persistent atrial fibrillation (CMS/HCC) (HCC) (Primary Dx); S/P placement of cardiac pacemaker; Atrial fibrillation with RVR (CMS/HCC) (HCC) 07/11/2024 1:30 PM AIR INTERCEPT CONTROLLER Ancillary Procedure [facility] Cardiology [address] [place] [address] [place] [address] [place] [address] Sinus node dysfunction (CMS/HCC) (HCC); Adjustment and management of cardiac pacemaker 07/04/2024 4:15 PM AIR INTERCEPT CONTROLLER Telemedicine [facility] Otolaryngology [address] [place] [address] Mehul Martinez II, MD Dizziness and giddiness (Primary Dx) 07/04/2024 1:00 PM AIR INTERCEPT CONTROLLER Procedure visit [facility] Otolaryngology [address] [place] [phone] Deanna Galvez Dizziness and giddiness (Primary Dx) 07/04/2024 Telephone [facility] Otolaryngology [address] [place] [phone] Brie Vincent LPN Order vestibular rehab 06/20/2024 2:00 PM AIR INTERCEPT CONTROLLER Office Visit [facility] Otolaryngology [address] [place] [phone] Mehul [place] II, MD Sensorineural hearing loss (SNHL) of both ears (Primary Dx); Dizziness and giddiness 06/20/2024 1:45 PM AIR INTERCEPT CONTROLLER Procedure visit [facility] Otolaryngology [address] [place] [phone] Deanna Galvez Dizziness and giddiness (Primary Dx); Sensorineural hearing loss (SNHL) of both ears; Tinnitus of both ears 05/13/2024 Orders Only [facility] Cardiology [address] [facility] Medicine 8th [place] [address] [place] [address] Ignacio Obregon MD 05/01/2024 Telephone [facility] Cardiology [address] [facility] [address] [place] [address] Sindhu Patrick NP Med Management [...] How often do you attend chur or confucianist services? Never 08/29/2022 Do you belong to any clubs o r organizations such as spiritism groups, unions, fraternal or athletic groups, or [...] place to sleep or slept in a senior care (including now)? No 08/29/2022 Personal Safety Answer Date Recorded Have you ever been in or are you currently in a harmful physical or emotional relationship or is someone making you feel afraid or unsafe? Denies 10/10/2022 Comments No Sex and Gender Information Value Date Recorded Sex Assigned at Not on file Legal Sex Female 2:00 AM AIR INTERCEPT CONTROLLER Gender Identity Not on file Sexual Orientation Not on file Obstetrics History Last Filed Vital Signs Vital Sign Reading Time Taken Comments Blood Pressure 106/64 04/22/2024 11:37 AM AIR INTERCEPT CONTROLLER Pulse 91 07/11/2024 1:22 PM AIR INTERCEPT CONTROLLER Temperature 36.7 C (98.1 F) 04/14/2023 8:56 AM AIR INTERCEPT CONTROLLER Respiratory Rate 18 06/20/2024 1:50 PM AIR INTERCEPT CONTROLLER Oxygen Saturation 95% 07/11/2024 1:22 PM AIR INTERCEPT CONTROLLER Inhaled Oxygen Concentration - - Weight 73.3 kg (161 lb 9.6 oz) 07/11/2024 1:22 P M AIR INTERCEPT CONTROLLER Height 157.5 cm (5' 2 ) 07/11/2024 1:22 PM AIR INTERCEPT CONTROLLER Body Mass Index 29.56 07/11/2024 1:22 PM AIR INTERCEPT CONTROLLER Plan of Treatment Health Maintenance Due Date [...] Completed 04/09/2024 Medical Devices Implanted Type Area Bandage Winding Machine Operator Device Identifier Shelf Expiration Date Model / Serial / Lot [employer] [id number] System 6-12fr Mvp Venous Closure Vascade - [id number] Implanted:Qt y: 1 on 08/28/2020 by Crow Gramajo MD at [facility] Collagen Left: Femoral [employer] 06/23/2022 [id number] / / [id number] Description:LFV sheath [employer] [id number] System 6-12fr Mvp Venous Closure Vascade - [id number] Implanted:Qt y: 1 on 08/28/2020 by Crow Gramajo MD at [facility] Collagen Right: Femoral [employer] 06/23/2022 [id number] / / [id number] Description:RFV sheath X 1 [employer] Tendril Sts 6fr 52cm Is-1 Connector Active Fixation Bipolar Soft /52 - [id number] - [id number] Implanted:Qt y: 1 on 10/10/2022 by Ignacio Obregon MD at [facility] Lead Right: Ventricle [employer] 08/02/20258TC/52 / [id number] / [employer] Tendril Sts 6fr 46cm Is-1 Connector Bipolar Active Fixation /46 - [id number] - [id number] Implanted:Qt y: 1 on 10/10/2022 by Ignacio Obregon MD at [facility] Lead Right: Atria [employer] 08/02/20258TC/46 / [id number] / [employer] Joanne [id number] Device Closure Watchman Pebax Nitinol [place] Iridium Pet 24mm L75cm Od12 Fr [id number] Fr [address] Stopcock Y Adapter Self Expand Proximal Face Sterile Disposable Left Atrial Appendage - [id number] Implanted:Qt y: 1 on 08/28/2020 by Ignacio Obregon MD at [facility] Other - see comments Left: Heart [employer] 03/23/2022 [id number] / / [id number] Description:Left atrial appe ndage closure device with delivery system [employer] Assurity Mri [id number] 2 Chamber Is-1 Connector Thk6mm Pacemaker [id number] - [id number] - [id number] Implanted:Qt y: 1 on 10/10/2022 by Ignacio Obregon MD at [facility] Pacemaker Right: Chest Wall [employer] 03/04/2024 [id number] / [id number] / [id number] Med[employer] X [id number] Resolute [place] 3.5mm 2.1-2.7fr 18mm 140cm Rapid Exchange - [id number] Implanted:Qt y: 1 on 11/26/2018 by Ildefonso Barrios MD PhD at [facility] Stent Medtronic Inc 09/05/2020 [id number] / / [id number] [employer] Vascade Mvp 6-12fr Venous Closure [id number] - [id number] - [id number] Implanted:Qt y: 1 on 10/10/2022 by Ignacio Obregon MD at [facility] Vascular Closure Device Right: Femoral Vein [employer] 03/15/2024 [id number] / [id number] / [id number] Lens Bilateral: Eye Device Lizzy Watchman Procedure - [id number] Implanted:Qt y: 1 on 08/28/2020 by Ignacio Obregon MD at [facility] [employer] [facility] [id number] 1-3 PC / / Procedures Procedure Name Priority Date/Time Associated Diagnosis Comments DEVICE CHECK - IN OFFICE Routine 07/11/2024 1:13 PM AIR INTERCEPT CONTROLLER Sinus node dysfunction (CMS/HCC) (HCC) Adjustment and management of cardiac pacemaker DEVICE CHECK - REMOTE Routine 05/13/2024 4:00 AM AIR INTERCEPT CONTROLLER POCT LIPID PANEL Routine 04/22/2024 11:4 3 AM AIR INTERCEPT CONTROLLER Lipid screening EGFR Routine 10/11/2022 4:40 AM CDT HEMOGLOBIN A1C STAT 08/28/2022 3:07 AM CDT from Last 3 Months or Most Recently Relevant to Health Maintenance Results * DEVICE CHECK - IN OFFICE (07/11/2024 1:13 PM AIR INTERCEPT CONTROLLER) Anatomical Region Laterality Modality Other 07/11/2024 2:00 AM AIR INTERCEPT CONTROLLER Narrative 07/12/2024 10:54 AM AIR INTERCEPT CONTROLLER Interpretation Summary: Battery and Leads (BL) Normal [...] device Ignacio Obregon MD [facility] Final Result * DEVICE CHECK - REMOTE (05/13/2024 4:00 AM AIR INTERCEPT CONTROLLER) Anatomical Region Laterality Modality Other 05/13/2024 4:00 AM AIR INTERCEPT CONTROLLER Narrative 05/19/2024 1:20 PM AIR INTERCEPT CONTROLLER Interpretation Summary: Battery and Leads (BL) Normal parameters noted on battery and lead(s) --- 5 to 9 years remaining (this is an estimate based on prior usage) Presenting Rhythm (KY) Atrial Fibrillation or Flutter Ventricular Sensing (VS) [...] estimate based on prior usage) Presenting Rhythm (KY) Atrial Fibrillation or Flutter Ventricular Sensing (VS) --- rate 60-100 Arrhythmic events (AE) Longstanding persistent atrial fibrillation and/or flutter --- AT/AFburden: 100%. V rates > 110 bpm: 18% of the time during AF Anticoagulation (AC) Patient is not on anticoagulant therapy Patient is status-post left atrial appendage occlusion device Transmission Information (TI) Device Summary Report Ignacio Obregon MD [facility] Final Result * POCT lipid panel (04/22/2024 11:43 AM AIR INTERCEPT CONTROLLER) Cholesterol, POC 119 mg/dL HDL, POC 35 mg/dL Triglycerides, POC 102 mg/dL LDL Cholesterol POC 64 mg/dL Chol/HDL Ratio, POC 1.9 Non-HDL Cholesterol, POC 85 mg/dL Cholesterol Total, POC 119 mg/dL Capillary blood 04/22/2024 1 1:43 AM AIR INTERCEPT CONTROLLER Sindhu Patrick NP POINT OF CARE TEST [...] ORDERABLES Final R esult Performing Organization Address [facility] de Phone Number [facility] [place] [address] * (ABNORMAL) Hemoglobin A1c (08/28/2022 3:07 AM CDT) Hgb A1C 6.1(H) 4.0 - 5.6 % [facility] Estimated Average Glucose 128 mg/dL [facility] Comment: The ADA recommends reporting an estimated [...] ORDERABLES Final Re sult Performing Organization Address [facility] de Phone Number [facility] [place] [place] [address] from Last 3 Months or Most Recently Relevant to Health Maintenance Insurance MEDICARE [facility] Member Subscriber Plan / Payer (Ef fective 2020-Present) Name:Jackie Landin Relation to Subscriber:Self Name:Jackie Landin Payer ID:[id number] Group ID:[id number] Type:COMMERCIAL Address: [place] [phone] MEDICARE [facility] MEDICARE [facility] MEDICARE MEDICARE [facility] Advance Directives For more information, please contact: [phone] * Full Code (Latest Code Status on [...] 4:14 AM 11/07/2020 6:56 PM Care Teams Aircraft Powerplant Repairer Relationship Specialty Start Date End Date Nicole Sierra NP [address] [place] [address] PCP - General Nurse Practitioner 07/20/23 Pinky Louise MD Consulting Physician Gastroenterology 10/02/18 [place] [address] [place] [address] Nurse Practitioner Medical Oncology 02/09/22 [place] [address] [place] [address] Consulting Physician Urology 08/06/22 [place] [address] [place] [address] Consulting Physician Cardiology 08/06/22
== END 2024-07-25 14:41 | disposition home or self-care (01) ==
LOC: ANHCARD 14:41
DX: I48.91 Unspecified atrial fibrillation (principal); I51.89 Other ill-defined heart diseases; I35.8 Other nonrheumatic aortic valve disorders; I34.81 Nonrheumatic mitral (valve) annulus calcification; Z95.0 Presence of cardiac pacemaker
CPT/HCPCS: 93306

== ENCOUNTER 2024-08-09 03:12 | Emergency (ER) | payer MEDICARE, SELFPAY ==
--- NOTE | ~2024-08-09 | CT_ITS ---
EXAMINATION: CTA chest PE protocol DATE: 08/09/2024 04:39 INDICATION: Chest pain. TECHNIQUE: Computed tomography angiography (CTA) of the chest was performed with 100 mL Omnipaque-350 intravenous contrast timed to evaluate the pulmonary arteries. Coronal maximum intensity projection 3D-reconstructions were created by the technologist. Automated exposure control and iterative reconst ruction technique were employed. The dose-length product was 353.47 mGy-cm. COMPARISON: Chest CT 03/17/2024, 09/13/2022, 04/28/2022 FINDINGS: The lungs demonstrate mild atelectasis. There is a 9 mm nodule in left lower lobe. There is a small left pleural effusion. There is a 10 mm nodule in the thyroid, likely not clinically signifi cant. Cardiomegaly is noted. There is a small pericardial effusion. There is a right chest wall pacer with leads in the right atrium and right ventricle. There is no pulmonary embolus. Calcified left hi lar lymph nodes are consistent with old granulomatous disease. The liver demonstrates surface nodular ity, consistent with cirrhosis. There are changes of cholecystectomy. There is trace perihepatic asci bridger. There is severe lower thoracic spondylosis. There is a chronic compression fracture of T11. Ther e are surgical clips in left axilla. IMPRESSION: 1. 9 mm left lower lobe pulmonary nodule, increased from 6 mm on 11/19/2023, suspicious for primary br onchogenic carcinoma. CT-guided biopsy is recommended. I discussed this result with Dr. Jasmine. 2. No pulmonary embolus. 3. Small left pleural effusion. 4. Cirrhosis of the liver. Reviewed, dictated and finalized at location A. ATANT SWIMMER IMPRESSION: 1. 9 mm left lower lobe pulmonary nodule, increased from 6 mm on 11/19/2023, xenia picious for primary bronchogenic carcinoma. CT-guided biopsy is recommended. I discussed this result with Dr. Jasmine. 2. No pulmonary embolus. 3. Small left pleural effusion. 4. Cirrhosis of the liver.
--- NOTE | ~2024-08-09 | XR_ITS ---
EXAMINATION: XR chest 2V DATE: 08/09/2024 03:56 INDICATION: Midsternal chest pain. TECHNIQUE: Frontal and lateral views of the chest were obtained. COMPARISON: Chest 2 views 07/01/2024 FINDINGS: Calcified left lung nodules and calcified left hilar lymph nodes are consistent with old gr anulomatous disease. No pleural effusion or pneumothorax. The heart size is normal. There is a closur e device at left atrial appendage. There is a right chest wall pacer with leads in the right atrium a nd right ventricle. There are surgical clips in left chest wall. IMPRESSION: 1. No acute cardiopulmonary disease. Reviewed, dictated and finalized at location A. GRATED MARKETING SPECIALIST
--- OUTSIDE RECORDS SUMMARY | 2024-08-09 03:15 | XMS_ITS | Clinical Summary ---
Author Organization [facility] Address [address] [place] [address] Care Team Providers Care Pain Management Nurse Practitioner Name Role Phone Marie Matias MD Unavailable [phone] Source Comments [facility],non-owned Affiliates and Associated Physician Practices is amultiple site organization consisting of ambulatory clinics and hospital sitesin [place], [place], [place] and [place]. This disclosure is being madepursuant to the Care Everywhere program and may not contain all information available regarding this patient. Last updated 18.[facility] Allergies No known active allergies Medications * [...] 1 Tab by mouth once daily. Active Ferdinand-3 Fatty Acids 1200 MG CAPS Take 1 [...] rybelsus -SSI Coronary artery disease invo lving [place] coronary artery of [place] heart without angina pectoris 11/19/2018 09/21/2023 Angina pectoris, unstable 11/07/20182023 Overview (09/21/2023): Added automatically from request for surgery [id number] H/O TIA (transient ischemic attack) and stroke [...] Encounters Date Type Department Care Team Description 07/26/2024 Travel 07/26/2024 Telephone [facility] - [address] [phone] Sammie Pereira, RN Appointment from Last 3 Months Immunizations Name Administration [...] Comments Blood Pressure 126/86 04/09/2024 12:40 PM NEUROPSYCHOLOGIST Pulse 98 04/09/2024 12:40 PM NEUROPSYCHOLOGIST Temperature 36.6 C (97.8 F) 08/06/2014 11:36 AM NEUROPSYCHOLOGIST Respiratory Rate 10 03/07/2022 7:51 AM CDT Oxygen Saturation 97% 04/09/2024 12:40 PM NEUROPSYCHOLOGIST Inhaled Oxygen Concentration - - Weight 72.7 kg (160 lb 3.2 oz) 04/09/2024 12:40 PM NEUROPSYCHOLOGIST Height 157.5 cm (5' 2 ) 04/09/2024 12:40 PM NEUROPSYCHOLOGIST Body Mass Index 29.3 04/09/2024 12:40 PM NEUROPSYCHOLOGIST Plan of Treatment Upcoming Encounters Date Type Department Care Team (Late st Contact Info) Description 12/05/2024 11:[address] [facility] [address] [place] [address] Lazaro Gonzales MD [address] [place] [address] 12/05/2024 1:00 PM CDT Office Visit [facility] - [address] [facility], [place] [address] Lazaro Gonzales MD [facility] [place] [address] Health Maintenance Due Date Last [...] COMPREHENSIVE METABOLIC PANEL Routine 04/09/2024 2:07 PM NEUROPSYCHOLOGIST Other cirrhosis of liver (HCC) HEPATITIS C [...] (ABNORMAL) COMPREHENSIVE METABOLIC PANEL (04/09/2024 2:07 PM NEUROPSYCHOLOGIST) BUN 22 7 - 26 mg/dL 04/09/2024 3:33 PM [facility] Creatinine 1.33(H) 0.56 - 0.96 mg/dL 04/09/2024 3:33 PM [facility] Sodium 140 136 - 145 mmol/L 04/09/2024 3:33 PM [facility] Potassium 3.9 3.5 - 4.5 mmol/L 04/09/2024 3:33 PM [facility] Chloride 104 98 - 107 mmol/L 04/09/2024 3:33 PM [facility] CO2 22 22 - 29 mmol/L 04/09/2024 3:33 PM [facility] Glucose 160(H) 70 - 99 mg/dL 04/09/2024 3:33 PM [facility] Calcium 9.4 8.4 - 10.2 mg/dL 04/09/2024 3:33 PM [facility] Protein Total 7.6 6.0 - 8.3 [...] Lab Venipuncture / Unknown 04/09/2024 2:07 PM NEUROPSYCHOLOGIST 04/09/2024 3:00 PM [facility] Lazaro Gonzales MD LAB - CHEMISTRY DEBBI KHAN [facility] Organization Address City/State/ZIP Co de Phone Number [facility] [address] [place] [address], [facility] [phone] * HEPATITIS C ANTIBODY (09/19/2023 3:44 PM CDT) Hepatitis C Antibody Non-react ruel Non-reac tive 09/19/2023 5:23 PM CDT [facility] Comment:Hepatitis C Antibody screen indicates no [...] Gonzales MD LAB - CHEMISTRY DEBBI KHAN [facility] [address] [place] [address], [facility] [phone] * (ABNORMAL) HEMOGLOBIN A1C (03/30/2015 12:13 PM CDT) Hemoglobin A1c 7.4(H) 4.2 - 5.8 % 03/30/2015 10:32 PM CDT [facility] Estimated Average Glucose 166 mg/dL 03/30/2015 10:32 PM CDT [facility] Whole Blood BLOOD SPECIMEN WITH EDTA / Unknown Venipuncture / Unknown 03/30/2015 12:13 PM CDT 03/30/2015 12:21 PM CDT Narrative [facility] - 03/30/2015 10:32 PM CDT Canadian Diabetes Association recommended the following cutoff levels: [...] - CHEM ISTRY ORDERABLES Performing Organization Address City/[facility]/ZIP Co de Phone Number [facility] [address] [place], [place] [address] * MICROALBUMIN URINE RANDOM (03/12/2014 11:04 AM CDT) Microalbumin Urine 20.0 0.0 - 20.0 mg/dL 03/12/2014 12:50 PM CDT [facility] Urine URINE / Unknown Venipuncture / Unknown 03/12/2014 11:04 AM CDT 03/12/2014 11:16 AM CDT Dk Kong MD LAB - URINE CHEMISTR Y ORDERABLES [facility] [address] from Last 3 Months or Most Recently Relevant to Health Maintenance Advance Directives * Full Code (Latest Code Status on File) Date Activated Date Inactivated Comments 08/04/2014 10:20 PM 08/06/2014 5:15 PM Care Teams Pain Management Nurse Practitioner Relationship Specialty Start Date End Date Marie Matias MD [address] [place] [address] Internal Medicine 11/23/21
--- OUTSIDE RECORDS SUMMARY | 2024-08-09 03:15 | XMS_ITS | Referral Summary ---
Author Organization [facility] [address] [facility] [address] Address [address] [place] [address] Care Team Providers Care Sand Drier Name Role Phone Pinky Louise MD Unavailable [phone] Mackenzie Tobin [employer] Unavailable [phone] Loki Viramontes MD Unavailable [phone] Frank Moses MD Unavailable Nicole Sierra NP Primary Care Provider [phone] Encounters Date Type Department Care Team Description 08/02/2024 Results Follow-Up [facility]iology [address] [facility] [address] [place] [address] Jyotsna Soto NP 08/02/2024 Orders Only [facility] Jyotsna Soto NP 07/31/2024 Telephone [facility] Cardiology [address] [place] [address] Maria Isabel Cesar MD 07/26/2024 10:00 AM UTILIZATION ENGINEER Therapy [facility] Medical Office Bldg 1 OP Physical Therapy [address] [facility] [address] [place], [place] [phone] Vesna Lopez, PT Dizziness and giddiness (Primary Dx) 07/18/2024 Telephone [facility] Cardiology [address] [place] [address] Medicine 8th [place] [address] [place] [address] Ignacio Obregon MD 07/18/2024 Plan of Care Documentation [facility] Medical Office Bldg 1 OP Physical Therapy [address] [place] [address] [place] [address] 07/18/2024 10:15 AM UTILIZATION ENGINEER Therapy [facility] Medical Office Bldg 1 OP Physical Therapy [address] [place] [address] [place] [address] Vesna Lopez, PT Dizziness and giddiness (Primary Dx) 07/11/2024 2:00 PM UTILIZATION ENGINEER Office Visit [facility] Cardiology [address] [place] [address] 8th [place] [address] [place] [address] Jyotsna Soto, ADRIANA Longstanding persistent atrial fibrillation (HCC) (Primary Dx); S/P placement of cardiac pacemaker; Atrial fibrillation with RVR (HCC) 07/11/2024 1:30 PM UTILIZATION ENGINEER Ancillary Procedure [facility] Cardiology [address] [place] [address] 8th [place] [address] [place] [address] Sinus node dysfunction (HCC); Adjustment and management of cardiac pacemaker 07/04/2024 Telephone [facility] Otolaryngology [address] [place] [address] Brie Vincent LPN Order vestibular rehab 07/04/2024 4:15 PM UTILIZATION ENGINEER Telemedicine [facility] Otolaryngology [address] [place] [address] Mehul Martinez II, MD Dizziness and giddiness (Primary Dx) 07/04/2024 1:00 PM UTILIZATION ENGINEER Procedure visit [facility] Otolaryngology [address] [place] [address] Deanna Galvez Dizziness and giddiness (Primary Dx) 06/20/2024 1:45 PM UTILIZATION ENGINEER Procedure visit [facility] Otolaryngology [address] [place] [address] Deanna Watters Dizziness and giddiness (Primary Dx); Sensorineural hearing loss (SNHL) of both ears; Tinnitus of both ears 06/20/2024 2:00 PM UTILIZATION ENGINEER Office Visit [facility] Otolaryngology [address] [place] [address] Mehul Martinez II, MD Sensorineural hearing loss (SNHL) of both ears (Primary Dx); Dizziness and giddiness 05/13/2024 Orders Only [facility] Cardiology [address] [facility] 8th [place] [address] [place] [address] Ignacio Obregon MD from Last 3 Months Allergies Active [...] 1 tablet (3 mg total) by 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 before 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 Active aspirin 325 mg tabletIndicati [...] 4 Active atorvastatin (LIPITOR) 40 mg tablet Take 1 tablet (40 mg total) by mouth daily Active carvediloL (COREG) 25 mg tablet Take 1 tablet (25 mg total) by mouth 2 (two) times a day with meals 180 tablet 5 Active atorvastatin (LIPITOR) 40 mg tablet TAKE 1 TABLET BY MOUTH DAILY 90 tablet 2 4 07/11/19 25 Discontinu ed(Therapy completed) carvediloL (COREG) 25 mg tablet Take 1 tablet (25 mg total) by mouth 2 (two) times a day with meals 07/31/19 25 Discontinu ed(Reorder ) Active Problems Problem Noted Date Diagnosed Date Sensorineural hearing loss (SNHL) of both ears 0 06/20/2024 Dizziness and giddiness 06/20/2024 S/P placement of cardiac pacemaker 10/20/2022 Assessment & Plan (07/11/2024 3:34 PM UTILIZATION ENGINEER): -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 as programmed -Lead impedances, sensing, and thresholds are stable -No programming changes -Continue remote monitoring quarterly Assessment & Plan (01/09/2024 4:12 PM CDT): 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 as programmed Lead impedances, sensing, and thresholds are stable No programming changes Continue remote monitoring quarterly Atrial fibrillation 10/11/2022 Sinus node dysfunction 10/10/2022 Assessment & Plan (10/10/2022 7:50 PM CDT): As per above. Chronic kidney disease (CKD), stage IV (severe) 10/10/2022 Assessment & Plan (10/11/2022 11:48 AM CDT): Stable on AM BMP -Avoid renal toxins, renally dose meds DM2 (diabetes mellitus, type 2) 10/10/2022 Assessment & Plan (10/11/2022 11:48 AM CDT): -Continue Jardiance. -Hold her rybelsus -SSI Acute on chronic congestive heart failure, unspecified heart failure type 08/27/2022 Renal mass 06/27/2022 Overview (06/27/2022): Added automatically from request for surgery [id number] A-fib 02/14/2022 Assessment & Plan (10/11/2022 11:47 AM [...] (07/11/2019): Added automatically from request for surgery [id number] Coronary artery disease invo [place]ving [place] coronary artery of [place] heart without angina pectoris 11/19/2018 Angina pectoris, unstable 11/07/2018 Overview (11/07/2018): Added automatically from request for surgery [id number] GI bleed 08/06/2018 Assessment & Plan (08/29/2020 [...] a associated with type 2 diabetes mellitus (CMS/HCC) 07/21/2015 Overview (09/09/2016): Type 2 diabetes mellitus [...] Abnormal stress test Longstanding persistent atrial fibrillation 11/03 Overview (09/09/2016): Paroxysmal atrial fibrillation Assessment & Plan (07/11/2024 3:39 PM UTILIZATION ENGINEER): -Persistent AF and bradycardia s/p dual chamber [...] CDT): - S/p MELIA to LAD in 2019 - Continue ASA, Plavix, atorvastatin Assessment & [...] monitoring sotalol therapy 05/03/2017 10/20/2022 Chronic anticoagulation 07/21/201501/032 Overview (09/09/2016): Chronic anticoagulation Immunizations Immunization Administration [...] often do you attend chur ch or bahai services? Never 08/29/2022 Do you belong to any clubs o r organizations such as jew groups, unions, fraternal or athletic groups, or [...] place to sleep or slept in a skilled nursing (including now)? No 08/29/2022 Personal Safety Answer Date Recorded Have you ever been in or are you currently in a harmful physical or emotional relationship or is someone making you feel afraid or unsafe? Denies 10/10/2022 Comments No Sex and Gender Information Value Date Recorded Sex Assigned at Not on file Legal Sex Female 2:00 AM UTILIZATION ENGINEER Gender Identity Not on file Sexual Orientation Not on file Last Filed Vital Signs Vital Sign Reading Time Taken Comments Blood Pressure 106/64 04/22/2024 11:37 AM UTILIZATION ENGINEER Pulse 91 07/11/2024 1:22 PM UTILIZATION ENGINEER Temperature 36.7 C (98.1 F) 04/14/2023 8:56 AM UTILIZATION ENGINEER Respiratory Rate 18 06/20/2024 1:50 PM UTILIZATION ENGINEER Oxygen Saturation 95% 07/11/2024 1:22 PM UTILIZATION ENGINEER Inhaled Oxygen Concentration - - Weight 73.3 kg (161 lb 9.6 oz) 07/11/2024 1:22 P M UTILIZATION ENGINEER Height 157.5 cm (5' 2 ) 07/11/2024 1:22 PM UTILIZATION ENGINEER Body Mass Index 29.56 07/11/2024 1:22 PM UTILIZATION ENGINEER Plan of Treatment Not on file Medical Devices Implanted Type Area Differential Repairer Device Identifier Shelf Expiration Date Model / Serial / Lot [employer] [id number] System 6-12fr Mvp Venous Closure Vascade - [id number] Implanted:Qt y: 1 on 08/28/2020 by Crow Gramajo MD at [facility] Collagen Left: Femoral [employer] 06/23/2022 [id number] / / [id number] Description:LFV sheath [employer] [id number] System 6-12fr Mvp Venous Closure Vascade - [id number] Implanted:Qt y: 1 on 08/28/2020 by Crow Gramajo MD at [facility] Collagen Right: Femoral [employer] 06/23/2022 [id number] / / [id number] Description:RFV sheath X 1 [employer] Tendril Sts 6fr 52cm Is-1 Connector Active Fixation Bipolar Soft /52 - [id number] - [id number] Implanted:Qt y: 1 on 10/10/2022 by Ignacio Obregon MD at [facility] Lead Right: Ventricle [employer] 08/02/2025 [id number]/52 / [id number] / [employer] Tendril Sts 6fr 46cm Is-1 Connector Bipolar Active Fixation /46 - [id number] - [id number] Implanted:Qt y: 1 on 10/10/2022 by Igancio Obregon MD at [facility] Lead Right: Atria [employer] 08/02/20258TC/46 / [id number] / [place] [employer] Joanne [id number] Device Closure Watchman Pebax Nitinol [place] Iridium Pet 24mm L75cm Od12 Fr [id number] Fr [address] Stopcock Y Adapter Self Expand Proximal Face Sterile Disposable Left Atrial Appendage - [id number] Implanted:Qt y: 1 on 08/28/2020 by Ignacio Obregon MD at [facility] Other - see comments Left: Heart [employer] Joanne 03/23/2022 [id number] / / [id number] Description:Left atrial appe ndage closure device with delivery system [employer] Assurity Mri [id number] 2 Chamber Is-1 Connector Thk6mm Pacemaker [id number] - [id number] - [id number] Implanted:Qt y: 1 on 10/10/2022 by Ignacio Obregon MD at [facility] Pacemaker Right: Chest Wall [employer] 03/04/2024 [id number] / [id number] / [id number] Medtr[employer] U[employer] X [id number] Resolute Stefano 3.5mm 2.1-2.7fr 18mm 140cm Rapid Exchange - [id number] Implanted:Qt y: 1 on 11/26/2018 by Ildefonso Barrios MD PhD at [facility] Stent Medtronic Inc 09/05/2020 [id number] / / [id number] [employer] Vascade Mvp 6-12fr Venous Closure [id number] - [id number] - [id number] Implanted:Qt y: 1 on 10/10/2022 by Ignacio Obregon MD at [facility] Vascular Closure Device Right: Femoral Vein [employer] 03/15/2024 [id number] / [id number] / [id number] Lens Bilateral: Eye Device Lizzy Watchman Procedure - [id number] Implanted:Qt y: 1 on 08/28/2020 by Ignacio Obregon MD at [facility] FundRazr WMPERPROCDEVICE 1-3 PC / / Procedures Procedure Name Priority Date/Time Associated Diagnosis Comments CARDIOLOGY DOCUMENT SCAN 08/02/2024 11:20 AM UTILIZATION ENGINEER DEVICE CHECK - IN OFFICE Routine 07/11/2024 1:13 PM UTILIZATION ENGINEER Sinus node dysfunction (HCC) Adjustment and management of cardiac pacemaker DEVICE CHECK - REMOTE Routine 05/13/2024 4:00 AM UTILIZATION ENGINEER POCT LIPID PANEL Routine 04/22/2024 11:4 3 AM UTILIZATION ENGINEER Lipid screening EGFR Routine 10/11/2022 4:40 AM CDT HEMOGLOBIN A1C STAT 08/28/2022 3:07 AM CDT from Last 3 Months or Most Recently Relevant to Health Maintenance Results * Cardiology Document Scan (08/02/2024 11:20 AM UTILIZATION ENGINEER) Anatomical Region Laterality Modality Other Jyotsna Soto NP CV CARDIAC SERVICES PROCE DURES Final Result * DEVICE CHECK - IN OFFICE (07/11/2024 1:13 PM UTILIZATION ENGINEER) Anatomical Region Laterality Modality Other 07/11/2024 2:00 AM UTILIZATION ENGINEER Narrative 07/12/2024 10:54 AM UTILIZATION ENGINEER Interpretation Summary: Battery and Leads (BL) Normal [...] DEVICE CHECK - REMOTE (05/13/2024 4:00 AM UTILIZATION ENGINEER) Anatomical Region Laterality Modality Other 05/13/2024 4:00 AM UTILIZATION ENGINEER Narrative 05/19/2024 1:20 PM UTILIZATION ENGINEER Interpretation Summary: Battery and Leads (BL) Normal parameters noted on battery and lead(s) --- 5 to 9 years remaining (this is an estimate based on prior usage) Presenting Rhythm (VA) Atrial Fibrillation or Flutter Ventricular Sensing (VS) [...] estimate based on prior usage) Presenting Rhythm (VA) Atrial Fibrillation or Flutter Ventricular Sensing (VS) [...] * POCT lipid panel (04/22/2024 11:43 AM UTILIZATION ENGINEER) Cholesterol, POC 119 mg/dL HDL, POC 35 mg/dL Triglycerides, POC 102 mg/dL LDL Cholesterol POC 64 mg/dL Chol/HDL Ratio, POC 1.9 Non-HDL Cholesterol, POC 85 mg/dL Cholesterol Total, POC 119 mg/dL Capillary blood 04/22/2024 1 1:43 AM UTILIZATION ENGINEER Sindhu Patrick NP POINT OF CARE TEST ORDERA BLES Final Result * (ABNORMAL) eGFR (10/11/2022 4:40 AM CDT) eGFR 41(L) 90 - 130 mL/min/1. 73 m2 [facility] Comment: Interpretive Data Reference Interval Normal >/= [...] ORDERABLES Final R esult Performing Organization Address [facility] Co de Phone Number [facility] [place] [address] * (ABNORMAL) Hemoglobin A1c (08/28/2022 3:07 AM CDT) Hgb A1C 6.1(H) 4.0 - 5.6 % [facility] Estimated Average Glucose 128 mg/dL [facility] Comment: The ADA recommends reporting an estimated [...] ORDERABLES Final Re sult Performing Organization Address [facility]/ZIP Co de Phone Number [facility] [place] [place] [address] from Last 3 Months or Most Recently Relevant to Health Maintenance Insurance [facility]IC[facility] [place] MEDICARE [facility] [place] MEDICARE [facility] [place] MEDICARE MEDICARE MEDICARE [facility] [place] Advance Directives For more information, please contact: [phone] * Full Code (Latest Code Status on [...] 4:14 AM 11/07/2020 6:56 PM Care Teams Sand Drier Relationship Specialty Start Date End Date Nicole Sierra NP [address] [place] [address] PCP - General Nurse Practitioner 07/20/23 Pinky Louise MD Consulting Physician Gastroenterology 10/02/18 Mackenzie Tobin NP [address] [address] Nurse Practitioner Medical Oncology 02/09/22 [place] [address] [place] [address] Consulting Physician Urology 08/06/22 [place] [address] [place] [address] Consulting Physician Cardiology 08/06/22
--- OUTSIDE RECORDS SUMMARY | 2024-08-09 03:15 | XMS_ITS | Encounter Summary ---
Author Organization [facility] Address [address] [facility] [place] [address] Care Team Providers Care Pulp And Paper Tester Name Role Phone Marie Matias MD Unavailable [phone] Encounter Details Date Type Department Care Team (Late Contact Info) Description 11/22/2022 Lab Requisition [facility] - DermPath Lab [address] [facility], [place] [address] Jyotsna Tineo, DO [address] [facility] [address]L [place] [address] Social History Tobacco Use Types Packs/Day Years [...] Department Care Team (Late Contact Info) Description 12/05/2024 11:00 AM CDT Appointment [facility] [address] [place] [address] Lazaro Gonzales MD [address] [place] [address] 12/05/2024 1:00 PM CDT Office Visit [facility] - GI [address] [facility], [place] [address] Lazaro Gonzales MD [address] [place] [address] documented as of this encounter Procedures Procedure Name Priority Date/Time Associated Diagnosis Comments DERMATOPATHOLOGY Routine 11/21/2022 1:39 PM CDT documented in this encounter Results * DERMATOPATHOLOGY (11/21/2022 1:39 PM CDT) Case Report Dermatopathology Report Case: [id number] Authorizing Provider: Jyotsna Tineo DO Collected: 11/21/2022 01:39 PM Ordering Location: [facility] D[facility] Lab Received: 11/22/2022 12:49 PM Pathologist: [...] determined by the Dermatopathology Laboratory at [facility], directed by Dr. Blair Garcia. These tests need not be, and therefore are not, approved by the [place] Food and Drug Administration. The tests are used for clinical purposes. Billing Codes Specimen Charges Stain Charges 56520 1 3 4:14 PM CDT DERMATOPATHOLOGY LABORATORY Embedded Images 3 4:14 PM CDT DERMATOPATHOLOGY LABORATORY Pathology/Cytolo gy TISSUE SPECIMEN FROM SKIN / Unknown 11/21/2022 1:39 PM CDT 11/22/2022 12:49 PM CDT Jyotsna Tineo DO LAB - PATHOLOGY/C YTOLOGY ORDERABLES DERMATOPATHOLOGY LABORATORY [facility] - Department of Dermatology [facility] Medicine [address] [facility], [address]rd Floor [address] [phone] documented in this encounter Visit Diagnoses Not on filedocumented in this encounter Care Teams Pulp And Paper Tester Relationship Specialty Start Date End Date Marie Matias MD [address] [place] [address] Internal Medicine 11/23/21 documented as of this encounter
--- OUTSIDE RECORDS SUMMARY | 2024-08-09 03:15 | XMS_ITS | Referral Summary ---
Author Organization [facility] Address [address] [place] [address] Care Team Providers Care Fourdrinier Machine Operator Name Role Phone Marie Matias MD Unavailable [phone] Source Comments [facility],non-owned Affiliates and Associated Physician Practices is amultiple site organization consisting of ambulatory clinics and hospital sitesin [place], [place], [place] and [place]. This disclosure is being madepursuant to the Care Everywhere program and may not contain all information available regarding this patient. Last updated 18.[facility] Encounters Date Type Department Care Team Description 07/26/2024 Travel 07/26/2024 Telephone [facility] - [address] [place] [address] Sammie Pereira, RN Appointment from Last 3 Months Allergies No known [...] 1 Tab by mouth once daily. Active Barwick-3 Fatty Acids 1200 MG CAPS Take 1 [...] rybelsus -SSI Coronary artery disease invo lving oneida coronary artery of oneida heart without angina pectoris 11/19/2018 09/21/2023 Angina pectoris, unstable 11/07/20182023 Overview (09/21/2023): Added automatically from request for surgery [id number] H/O TIA (transient ischemic attack) and stroke [...] Comments Blood Pressure 126/86 04/09/2024 12:40 PM PROTECTION ENGINEER Pulse 98 04/09/2024 12:40 PM PROTECTION ENGINEER Temperature 36.6 C (97.8 F) 08/06/2014 11:36 AM PROTECTION ENGINEER Respiratory Rate 10 03/07/2022 7:51 AM CDT Oxygen Saturation 97% 04/09/2024 12:40 PM PROTECTION ENGINEER Inhaled Oxygen Concentration - - Weight 72.7 kg (160 lb 3.2 oz) 04/09/2024 12:40 PM PROTECTION ENGINEER Height 157.5 cm (5' 2 ) 04/09/2024 12:40 PM PROTECTION ENGINEER Body Mass Index 29.3 04/09/2024 12:40 PM PROTECTION ENGINEER Functional Status Functional Status Response Date of [...] Description 12/05/2024 11:[address] [facility] [address] [place] [address] Lazaro Gonzales MD [address] [place] [phone] 12/05/2024 1:00 PM CDT Office Visit [facility] - [address] [place] [address], [place] [address] Lazaro Gonzales MD [address] [place] [phone] Goals Goal Patient Goal Type Associated Problems Recent Progress Patient-Stated? Author Medication Management General No Lizzie Valente, RN Note: Expected end date: ongoing Interventions: Take all medications as prescribed Procedures Procedure Name Priority Date/Time Associated Diagnosis Comments COMPREHENSIVE METABOLIC PANEL Routine 04/09/2024 2:07 PM PROTECTION ENGINEER Other cirrhosis of liver (HCC) HEPATITIS C [...] (ABNORMAL) COMPREHENSIVE METABOLIC PANEL (04/09/2024 2:07 PM [facility]) BUN 22 7 - 26 mg/dL 04/09/2024 3:33 PM [facility] Creatinine 1.33(H) 0.56 - 0.96 mg/dL 04/09/2024 3:33 PM [facility] Sodium 140 136 - 145 mmol/L 04/09/2024 3:33 PM [facility] Potassium 3.9 3.5 - 4.5 mmol/L 04/09/2024 3:33 PM [facility] Chloride 104 98 - 107 mmol/L 04/09/2024 3:33 PM [facility] CO2 22 22 - 29 mmol/L 04/09/2024 3:33 PM [facility] Glucose 160(H) 70 - 99 mg/dL 04/09/2024 3:33 PM [facility] Calcium 9.4 8.4 - 10.2 mg/dL 04/09/2024 3:33 PM [facility] Protein Total 7.6 6.0 - 8.3 g/dL 04/09/2024 3:33 PM [facility] Albumin 3.4 3.4 - 5.0 g/dL 04/09/2024 3:33 PM [facility] Bilirubin Total 0.6 0.2 - 1.2 mg/dL 04/09/2024 3:33 PM [facility] Alkaline Phosphatase 155(H) 40 - 150 U/L 04/09/2024 3:33 PM [facility] ALT 12 5 - 55 U/L 04/09/2024 3:33 PM [facility] AST 20 5 - 34 U/L 04/09/2024 3:33 PM [facility] Anion Gap 14 6 - 16 04/09/2024 3:33 PM [facility] BUN/Creatinine Ratio 17 7 - 23 04/09/2024 3:33 PM [facility] Osmolality Calculated 297(H) 275 - 295 mOsm/kg 04/09/2024 3:33 PM [facility] Albumin/Globulin Ratio 0.8(L) 1.1 - 2.3 04/09/2024 3:33 PM [facility] eGFR by CKD-EPI 41(L) >=90 mL/min/1.7 3 m2 04/09/2024 3:33 PM PROTECTION ENGINEER [facility] Blood BLOOD SPECIMEN / Unknown Lab Venipuncture / Unknown 04/09/2024 2:07 PM PROTECTION ENGINEER 04/09/2024 3:00 PM PROTECTION ENGINEER Lazaro Gonzales MD LAB - CHEMISTRY DEBBI KHAN Performing Organization Address City/[facility]/ZIP Co de Phone Number [address] [address], [facility] [phone] * HEPATITIS C ANTIBODY (09/19/2023 3:44 PM CDT) [facility] Hepatitis C Antibody Non-react ruel Non-reac tive 09/19/2023 5:23 PM CDT [facility] Comment:Hepatitis C Antibody screen indicates no [...] - CHEMISTRY DEBBI KHAN Performing Organization Address City/[facility]/ZIP Co de Phone Number [address] [address], [facility] [phone] * (ABNORMAL) HEMOGLOBIN A1C (03/30/2015 12:13 PM CDT) Pathologist [facility] Hemoglobin A1c 7.4(H) 4.2 - 5.8 % 03/30/2015 10:32 PM CDT [facility] Estimated Average Glucose 166 mg/dL 03/30/2015 10:32 PM CDT [facility] Whole Blood BLOOD SPECIMEN WITH EDTA / Unknown Venipuncture / Unknown 03/30/2015 12:13 PM CDT 03/30/2015 12:21 PM CDT Narrative [facility] - 03/30/2015 10:32 PM CDT [employer] [employer] recommended the following cutoff levels: [...] - CHEM ISTRY ORDERABLES Performing Organization Address [facility] Co de Phone Number [facility] [address] * MICROALBUMIN URINE RANDOM (03/12/2014 11:04 AM CDT) Microalbumin Urine 20.0 0.0 - 20.0 mg/dL 03/12/2014 12:50 PM CDT [facility] Urine URINE / Unknown Venipuncture / Unknown 03/12/2014 11:04 AM CDT 03/12/2014 11:16 AM CDT Dk Kong MD LAB - URINE CHEMISTR Y ORDERABLES Performing Organization Address [facility] Co de Phone Number [facility] [address] from Last 3 Months or Most Recently Relevant to Health Maintenance Advance Directives * Full Code (Latest Code Status on File) Date Activated Date Inactivated Comments 08/04/2014 10:20 PM 08/06/2014 5:15 PM Care Teams Fourdrinier Machine Operator Relationship Specialty Start Date End Date Marie Matias MD [address] [place] [address] Internal Medicine 11/23/21
--- OUTSIDE RECORDS SUMMARY | 2024-08-09 03:15 | XMS_ITS | Clinical Summary ---
Author Organization [facility] [address] Address [address] [place] [address] Care Team Providers Care Box Machine Operator Name Role Phone Pinky Louise MD Unavailable [phone] Mackenzie Tobin NP Unavailable [phone] Loki Viramontes MD Unavailable [phone] Frank Moses MD Unavailable [phone] Nicole Sierra NP Primary Care Provider [phone] Allergies Active Allergy Reactions Criticality Noted Date [...] 1 tablet (3 mg total) by mouth mold clamper before breakfast Active aspirin 325 mg tabletIndicati [...] 10/20/2022 Assessment & Plan (07/11/2024 3:34 PM SALT PLANT OPERATOR): -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 as [...] (06/27/2022): Added automatically from request for surgery [id number] A-fib 02/14/2022 Assessment & Plan (10/11/2022 11:47 [...] (07/11/2019): Added automatically from request for surgery [id number] Coronary artery disease invo lving [place] coronary artery of [place] heart without angina pectoris 11/19/2018 Angina pectoris, unstable 11/07/2018 Overview (11/07/2018): Added automatically from request for surgery [id number] GI bleed 08/06/2018 Assessment & Plan (08/29/2020 [...] a associated with type 2 diabetes mellitus ([facility]) 07/21/2015 Overview (09/09/2016): Type 2 diabetes mellitus [...] fibrillation Assessment & Plan (07/11/2024 3:39 PM SALT PLANT OPERATOR): -Persistent AF and bradycardia s/p dual chamber [...] PM CDT): Continue lipitor Hypertension, essential 08/28/2020 0410/2021 Assessment & Plan (08/29/2020 10:45 AM CDT): [...] EF 72%, fixed apical defect c/w prior TX. Assessment & Plan (08/28/2020 7:53 PM CDT): - TTE in 09/2018 w/ G3DD. Home metop XL 12.5, losartan 25, lasix 20. - PCI 2018 w/ 1 stent to LAD. MPI stress 05/2020 w/ EF 72%, fixed apical defect c/w prior TX. Essential hypertension 09/13/201910/20 Assessment & Plan (02/16/2022 [...] Department Care Team Description 08/02/2024 Results Follow-Up [facility] [address] [place] [address] Jyotsna Soto NP 08/02/2024 Orders Only [facility] Jyotsna Soto NP 07/31/2024 Telephone [facility] [address] [address] [address] [place] [address] Maria Isabel Cesar MD 07/26/2024 10:00 AM SALT PLANT OPERATOR Therapy [facility] Medical Office Bldg 1 OP Physical Therapy [address] [place] [address] [place] [phone] Vesna Lopez, PT Dizziness and giddiness (Primary Dx) 07/18/2024 10:15 AM SALT PLANT OPERATOR Therapy [facility] Medical Office Bldg 1 OP Physical Therapy [address] [place] [address] [place] [phone] Vesna Lopez, PT Dizziness and giddiness (Primary Dx) 07/18/2024 Telephone [facility] [address] [place] [address] 8th [place] [address] [place] [address] Ignacio Obregon MD 07/18/2024 Plan of Care Documentation [facility] Office Bldg 1 OP Physical Therapy [address] [place] [address] [place] [phone] 07/11/2024 2:00 PM SALT PLANT OPERATOR Office Visit [facility] [address] [place] [address] 8th [place] [address] [place] [address] Jyotsna Soto NP Longstanding persistent atrial fibrillation (HCC) (Primary Dx); S/P placement of cardiac pacemaker; Atrial fibrillation with RVR (HCC) 07/11/2024 1:30 PM SALT PLANT OPERATOR Ancillary Procedure [facility] [address] [place] [address] 8th [place] [address] [place] [address] Sinus node dysfunction (HCC); Adjustment and management of cardiac pacemaker 07/04/2024 4:15 PM SALT PLANT OPERATOR Telemedicine [facility] Otolaryngology [address] [place] [phone] Mehul Martinez II, MD Dizziness and giddiness (Primary Dx) 07/04/2024 1:00 PM SALT PLANT OPERATOR Procedure visit [facility] Otolaryngology [address] [place] [phone] Deanna Galvez Dizziness and giddiness (Primary Dx) 07/04/2024 Telephone [facility] Otolaryngology [address] [place] [phone] Brie Vincent LPN Order vestibular rehab 06/20/2024 2:00 PM SALT PLANT OPERATOR Office Visit [facility] Otolaryngology [address] [place] [phone] Mehul Martinez II, MD Sensorineural hearing loss (SNHL) of both ears (Primary Dx); Dizziness and giddiness 06/20/2024 1:45 PM SALT PLANT OPERATOR Procedure visit [facility] Otolaryngology [address] [place] [phone] Deanna Galvez Dizziness and giddiness (Primary Dx); Sensorineural hearing loss (SNHL) of both ears; Tinnitus of both ears 05/13/2024 Orders Only [facility] [address] [place] [address] 8th [place] [address] [place] [address] Ignacio Obregon MD from Last 3 Months Immunizations Immunization Administration [...] laterality, unspecified site of breast Atrial fibrillation (HCC) Diabetes mellitus (HCC) Hyperlipidemia TIA (transient [...] often do you attend chur ch or sikhism services? Never 08/29/2022 Do you belong to any clubs o r organizations such as temple groups, unions, fraternal or athletic groups, or [...] on file Legal Sex Female 2:00 AM SALT PLANT OPERATOR Gender Identity Not on file Sexual Orientation Not on file Obstetrics History Last Filed Vital Signs Vital Sign Reading Time Taken Comments Blood Pressure 106/64 04/22/2024 11:37 AM SALT PLANT OPERATOR Pulse 91 07/11/2024 1:22 PM SALT PLANT OPERATOR Temperature 36.7 C (98.1 F) 04/14/2023 8:56 AM SALT PLANT OPERATOR Respiratory Rate 18 06/20/2024 1:50 PM SALT PLANT OPERATOR Oxygen Saturation 95% 07/11/2024 1:22 PM SALT PLANT OPERATOR Inhaled Oxygen Concentration - - Weight 73.3 kg (161 lb 9.6 oz) 07/11/2024 1:22 P M SALT PLANT OPERATOR Height 157.5 cm (5' 2 ) 07/11/2024 1:22 PM SALT PLANT OPERATOR Body Mass Index 29.56 07/11/2024 1:22 PM SALT PLANT OPERATOR Plan of Treatment Health Maintenance Due Date Last Done Comments Albumin Creatinine Ratio, Urine 1945 Hepatitis C Screening 1945 Osteoporosis Screening-Bone Density Scan 1945 Dilated Eye Exam 1945 Foot Exam 1945 DTaP/Tdap/Td Vaccine (1 - Tdap) 1957 Pneumococcal vaccine 65+ (1 of 2 - PCV) 1965 Zoster Vaccine (1 of 2) 01/29/1996 Well Visit 65+ 2011 Hemoglobin A1C 02/28/2023 08/28/2022, 02, 02/14/2022 Depression Screening 08/28/2023 08/27/2022 Fall Risk Assessment 10/11/2023 10/10/2022 eGFR 10/12/2023 10/11/2022, 08/2022, 08/31/2022, Additional history exists Covid-19 Vaccine (2023-2 5 season) 2024 09/08/2020, 07/08/2020 Influenza Vaccine (#1) 2024 Lipid Panel 04/22/2025 04/22/2024, 02/04, 02/15/2022, Additional history exists Hepatitis B Screening Completed 04/09/2024 Medical Devices Implanted Type Area Library Science Instructor Device Identifier Shelf Expiration Date Model / Serial / Lot [employer] [id number] System 6-12fr Mvp Venous Closure Vascade - [id number] Implanted:Qt y: 1 on 08/28/2020 by Crow Gramajo MD at [facility] Collagen Left: Femoral [employer] 06/23/2022 [id number] / / [id number] Description:LFV sheath [employer] [id number] System 6-12fr Mvp Venous Closure Vascade - [id number] Implanted:Qt y: 1 on 08/28/2020 by Crow Gramajo MD at [facility] Collagen Right: Femoral [employer] 06/23/2022 [id number] / / [id number] Description:RFV sheath X 1 [employer] Tendril Sts 6fr 52cm Is-1 Connector Active Fixation Bipolar Soft /52 - [id number] - [id number] Implanted:Qt y: 1 on 10/10/2022 by Ignacio Obregon MD at [facility] Lead Right: Ventricle [employer] 08/02/20252087TC/52 / [id number] / [employer] Tendril Sts 6fr 46cm Is-1 Connector Bipolar Active Fixation /46 - [id number] - [id number] Implanted:Qt y: 1 on 10/10/2022 by Ignacio Obregon MD at [facility] Lead Right: Atria [employer] 08/02/2025 [id number]/46 / [id number] / [employer] Joanne [id number] Device Closure Watchman Pebax Nitinol [place] Iridium Pet 24mm L75cm Od12 Fr [id number] Fr [address] Stopcock Y Adapter Self Expand Proximal Face Sterile Disposable Left Atrial Appendage - [id number] Implanted:Qt y: 1 on 08/28/2020 by Ignacio Obregon MD at [facility] Other - see comments Left: Heart [employer] Joanne 03/23/2022 [id number] / / [id number] Description:Left atrial appe ndage closure device with delivery system [employer] Assurity Mri [id number] 2 Chamber Is-1 Connector Thk6mm Pacemaker [id number] - [id number] - [id number] Implanted:Qt y: 1 on 10/10/2022 by Ignacio Obregon MD at [facility] Pacemaker Right: Chest Wall [employer] 03/04/2024 [id number] / [id number] / [id number] Medtronic U[employer] X [id number] Resolute [place] 3.5mm 2.1-2.7fr 18mm 140cm Rapid Exchange - [id number] Implanted:Qt y: 1 on 11/26/2018 by Ildefonso Barrios MD PhD at [facility] Stent Medtronic Inc 09/05/2020 [id number] / / [id number] [employer] Vascade Mvp 6-12fr Venous Closure [id number] - [id number] - [id number] Implanted:Qt y: 1 on 10/10/2022 by Ignacio Obregon MD at [facility] Vascular Closure Device Right: Femoral Vein [employer] 03/15/2024 [id number] / [id number] / [id number] Lens Bilateral: Eye Device Lizzy Watchman Procedure - [id number] Implanted:Qt y: 1 on 08/28/2020 by Ignacio Obregon MD at [facility] FClub Joanne [id number] 1-3 PC / / Procedures Procedure Name Priority Date/Time Associated Diagnosis Comments CARDIOLOGY DOCUMENT SCAN 08/02/2024 11:20 AM SALT PLANT OPERATOR DEVICE CHECK - IN OFFICE Routine 07/11/2024 1:13 PM SALT PLANT OPERATOR Sinus node dysfunction (HCC) Adjustment and management of cardiac pacemaker DEVICE CHECK - REMOTE Routine 05/13/2024 4:00 AM SALT PLANT OPERATOR POCT LIPID PANEL Routine 04/22/2024 11:4 3 AM SALT PLANT OPERATOR Lipid screening EGFR Routine 10/11/2022 4:40 AM CDT HEMOGLOBIN A1C STAT 08/28/2022 3:07 AM CDT from Last 3 Months or Most Recently Relevant to Health Maintenance Results * Cardiology Document Scan (08/02/2024 11:20 AM SALT PLANT OPERATOR) Anatomical Region Laterality Modality Other Jyotsna Soto NP [facility] PROCE DURRAMÓN Final Result * DEVICE CHECK - IN OFFICE (07/11/2024 1:13 PM SALT PLANT OPERATOR) Anatomical Region Laterality Modality Other 07/11/2024 2:00 AM SALT PLANT OPERATOR Narrative 07/12/2024 10:54 AM SALT PLANT OPERATOR Interpretation Summary: Battery and Leads (BL) Normal [...] DEVICE CHECK - REMOTE (05/13/2024 4:00 AM SALT PLANT OPERATOR) Anatomical Region Laterality Modality Other 05/13/2024 4:00 AM SALT PLANT OPERATOR Narrative 05/19/2024 1:20 PM SALT PLANT OPERATOR Interpretation Summary: Battery and Leads (BL) Normal parameters noted on battery and lead(s) --- 5 to 9 years remaining (this is an estimate based on prior usage) Presenting Rhythm (MA) Atrial Fibrillation or Flutter Ventricular Sensing (VS) [...] estimate based on prior usage) Presenting Rhythm (MA) Atrial Fibrillation or Flutter Ventricular Sensing (VS) --- rate 60-100 Arrhythmic events (AE) Longstanding persistent atrial fibrillation and/or flutter --- AT/AFburden: 100%. V rates > 110 bpm: 18% of the time during AF Anticoagulation (AC) Patient is not on anticoagulant therapy Patient is status-post left atrial appendage occlusion device Transmission Information (TI) Device Summary Report Ignacio Obregon MD CV C[facility] Final Result * POCT lipid panel (04/22/2024 11:43 AM SALT PLANT OPERATOR) Cholesterol, POC 119 mg/dL HDL, POC 35 mg/dL Triglycerides, POC 102 mg/dL LDL Cholesterol POC 64 mg/dL Chol/HDL Ratio, POC 1.9 Non-HDL Cholesterol, POC 85 mg/dL Cholesterol Total, POC 119 mg/dL Capillary blood 04/22/2024 1 1:43 AM SALT PLANT OPERATOR us Sindhu Patrick NP POINT OF CARE TEST ORDERA BLES Final Result * (ABNORMAL) eGFR (10/11/2022 4:40 AM CDT) eGFR 41(L) 90 - 130 mL/min/1. 73 m2 [facility] Comment: Interpretive Data Reference Interval Normal [...] MD LAB BLOOD ORDERABLES Final R esult [facility] Department [place] [address] * (ABNORMAL) Hemoglobin A1c (08/28/2022 3:07 AM CDT) Hgb A1C 6.1(H) 4.0 - 5.6 % [facility] Estimated Average Glucose 128 mg/dL [facility] Comment: The ADA recommends reporting an [...] LAB BLOOD ORDERABLES Final Re sult [facility] Department [place] [address] from Last 3 Months or Most Recently Relevant to Health Maintenance Insurance MEDICARE [facility] MEDICARE [facility] MEDICARE [facility] MEDICARE MEDICARE MEDICARE [facility] Advance Directives For more information, please contact: [phone] * Full Code (Latest Code Status on [...] 4:14 AM 11/07/2020 6:56 PM Care Teams Box Machine Operator Relationship Specialty Start Date End Date Nicole Sierra NP [address] [place] [address] PCP - General Nurse Practitioner 07/20/23 Pinky Louise MD Consulting Physician Gastroenterology 10/02/18 Mackenzie Tobin NP [address] [place] [address] Nurse Practitioner Medical Oncology 02/09/22 [place] [address] [place] [address] Consulting Physician Urology 08/06/22 [place] [address] [place] [address] Consulting Physician Cardiology 08/06/22
--- OUTSIDE RECORDS SUMMARY | 2024-08-09 03:15 | XMS_ITS | Encounter Summary ---
Author Organization [facility] Address [facility] [place] [address] Care Team Providers Care Feed Inspection Supervisor Name Role Phone Marie Matias MD Unavailable [phone] Reason for Visit * Reason Comments Medication Problem Encounter Details Date Type Department Care Team (Late st Contact Info) Description 10/18/2023 Telephone [facility] - [address] [phone] Mariela Mcallister, coconut boiler Problem Social History Tobacco Use Types Packs/Day [...] received from pt to report f/u with ball rolling machine operator. Inquired about a change in medication from metoprolol succinate to carvedilol BID. Start Up Specialist prefers pt to stay on metoprolol succinate. Dr. Gonzales notified. documented in this encounter Plan of Treatment Upcoming Encounters Date Type Department Care Team (Late st Contact Info) Description 12/05/2024 11:[address] [facility] [address] [place] [address] Lazaro Gonzales MD [address] [place] [phone] 12/05/2024 1:00 PM CDT Office Visit [facility] - [address], [place] [address] Lazaro Gonzales MD [address] [place] [phone] documented as of this encounter Visit Diagnoses Not on filedocumented in this encounter Care Teams Feed Inspection Supervisor Relationship Specialty Start Date End Date Marie Matias MD [address] [place] [phone] Internal Medicine 11/23/21 documented as of this encounter
--- OUTSIDE RECORDS SUMMARY | 2024-08-09 03:15 | XMS_ITS | Clinical Summary ---
Author Organization [facility] Address [address] [place] [address] Care Team Providers Care Cart Driver Name Role Phone Parveen [place] MD Primary Care Provider [phone] Allergies Active Allergy Reactions Criticality Noted Date [...] (1 - Tdap) 1964 PNEUMOCOCCAL VACCINE 50+ YEARS (1 of 2 - PCV) 01/28/19 65 ZOSTER VACCINE (1 of 2) 01/29/1996 OSTEOPOROSIS SCREENING 2011 DIABETES HBA1C Q 6 MONTHS 09/29/2015 03/30/2015 RSV VACCINE (60+ or ) (1 - 1-dose 75+ series) 2021 INFLUENZA VACCINE (#1) 2024 COVID-19 Vaccine (2 - 2023- season) 02/04/202408/2020 Insurance MEDICARE PART A AND B [facility] [id number] Member Subscriber Plan / Payer (Ef fective 2020-Present) Name:Jackie Waddell Relation to Subscriber:Self Name:Jackie Waddell Payer ID:[id number] (NAIC) Group ID:Not on file Type:Supplemental Address: [place] [id number] Care Teams Cart Driver Relationship Specialty Start Date End Date Parveen [place] MD [address] [place] [phone] PCP - General Internal Medicine 10/15/20
--- OUTSIDE RECORDS SUMMARY | 2024-08-09 03:15 | XMS_ITS ---
Author Organization [facility] [address] Address [address] [place] [address] Care Team Providers Care Client Services Associate Name Role Phone Pinky Louise MD Unavailable [phone] Mackenzie Tobin NP Unavailable [phone] Loki Viramontes MD Unavailable [phone] Frank Moses MD Unavailable [phone] Nicole Sierra NP Primary Care Provider [phone] Active Problems Problem Noted Date Diagnosed Date Sensorineural hearing loss (SNHL) of both ears 0 06/20/2024 Dizziness and giddiness 06/20/2024 S/P placement of cardiac pacemaker 10/20/2022 Assessment & Plan (07/11/2024 3:34 PM MAINSPRING STRIP INSPECTOR): -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 as [...] (06/27/2022): Added automatically from request for surgery [id number] A-fib 02/14/2022 Assessment & Plan (10/11/2022 11:47 [...] (07/11/2019): Added automatically from request for surgery [id number] Coronary artery disease invo lving diomede coronary artery of diomede heart without angina pectoris 11/19/2018 Angina pectoris, unstable 11/07/2018 Overview (11/07/2018): Added automatically from request for surgery [id number] GI bleed 08/06/2018 Assessment & Plan (08/29/2020 [...] fibrillation Assessment & Plan (07/11/2024 3:39 PM MAINSPRING STRIP INSPECTOR): -Persistent AF and bradycardia s/p dual chamber [...] EF 72%, fixed apical defect c/w prior CT. Assessment & Plan (08/28/2020 7:53 PM CDT): - TTE in 09/2018 w/ G3DD. Home metop XL 12.5, losartan 25, lasix 20. - PCI 2018 w/ 1 stent to LAD. MPI stress 05/2020 w/ EF 72%, fixed apical defect c/w prior CT. Essential hypertension 09/13/201910/20 Assessment & Plan (02/16/2022 [...]
--- OUTSIDE RECORDS SUMMARY | 2024-08-09 03:15 | XMS_ITS | Encounter Summary ---
Author Organization [facility] Address [address] [place] [address] Phone Care Team Providers Care Jumbo Operator Name Role Phone Pinky Louise MD Unavailable [phone] Mackenzie Tobin NP Unavailable [phone] Loki Viramontes MD Unavailable [phone] Frank Moses MD Unavailable [phone] Nicole Sierra NP Primary Care Provider [phone] Encounter Details Date Type Department Care Team (Late st Contact Info) Description 08/02/2024 Results Follow-Up [facility] [address] [place] [address] Jyotsna Soto, ADRIANA [address] [place] [address] [id number] Social History Tobacco Use Types Packs/Day Years [...] often do you attend chur ch or denominational services? Never 08/29/2022 Do you belong to any clubs o r organizations such as synagogue groups, unions, fraternal or athletic groups, or [...] on file Legal Sex Female 2:00 AM CRYPTOLOGIC SUPPORT SPECIALIST Gender Identity Not on file Sexual Orientation Not on file documented as of this encounter Plan of Treatment Not on file documented as of this encounter Visit Diagnoses Not on filedocumented in this encounter Care Teams Jumbo Operator Relationship Specialty Start Date End Date Nicole Sierra NP [address] [place] [address] PCP - General Nurse Practitioner 07/20/23 Pinky Louise MD Consulting Physician Gastroenterology 10/02/18 Mackenzie Tobin NP [address] [place] [address] Nurse Practitioner Medical Oncology 02/09/22 [place] [address] [place] [address] Consulting Physician Urology 08/06/22 [place] [address] [place] [address] Consulting Physician Cardiology 08/06/22 documented as of this encounter
--- OUTSIDE RECORDS SUMMARY | 2024-08-09 03:15 | XMS_ITS | Encounter Summary ---
Author Organization [facility] Address [address] [place] [address] Care Team Providers Care Facilities Supervisor Name Role Phone Marie Matias MD Unavailable [phone] Encounter Details Date Type Department Care Team (Late Contact Info) Description 01/03/2023 Lab Requisition [facility]erm[facility] Lab [address] [place] [address] Jyotsna Tineo, DO [address] [facility] [address] [place] [address] Social History Tobacco Use Types Packs/Day Years [...] Info) Description 12/05/2024 11:00 AM CDT Appointment [facility] [address] [place] [address] Lazaro Gonzales MD [address] [place] [phone] 12/05/2024 1:00 PM CDT Office Visit [facility] - GI [address] [facility] [place] [phone] Lazaro Gonzales MD [address] [place] [phone] documented as of this encounter Procedures Procedure Name Priority Date/Time Associated Diagnosis Comments DERMATOPATHOLOGY Routine 01/03/2023 11:1 1 AM CDT documented in this encounter Results * DERMATOPATHOLOGY (01/03/2023 11:11 AM CDT) Case Report Dermatopathology Report Case: [id number] Authorizing Provider: Jyotsna Tineo DO Collected: 01/03/2023 11:11 AM Ordering Location: [facility] Received: 01/03/2023 03:19 PM Pathologist: [...] of a non-oriented ellipse of skin measuring 23y56h6 mm. The epidermal surface is unremarkable. The [...] characteristic determined by the Dermatopathology Laboratory at [facility], directed by Dr. lBair Garcia. These tests need not be, and therefore are not, approved by the [place] Food and Drug Administration. The tests are used for clinical purposes. Billing Codes Specimen Charges Stain Charges 12093 1 3 5:22 PM CDT DERMATOPATHOLOGY LABORATORY Embedded Images 3 5:22 PM CDT DERMATOPATHOLOGY LABORATORY Pathology/Cytolo gy TISSUE SPECIMEN FROM SKIN / Unknown 01/03/2023 11:11 AM CDT 01/03/2023 3:19 PM CDT Jyotsna Tineo DO LAB - PATHOLOGY/C YTOLOGY ORDERABLES DERMATOPATHOLOGY LABORATORY [facility] - Department of Dermatology [facility] Medicine [address] [place] [address], [address] [phone] documented in this encounter Visit Diagnoses Not on filedocumented in this encounter Care Teams Facilities Supervisor Relationship Specialty Start Date End Date Marie Matias MD [address] [place] [address] Internal Medicine 11/23/21 documented as of this encounter
--- NOTE | 2024-08-09 03:16 | ECG_ITS ---
Test Date: 2024-08-09 03:23:40 Measurements Intervals Sabael Rate: 98 P: 0 AL: 0 QRS: -38 QRSD: 86 T: 32 QT: 376 QTc: 480 Interpretive Statements ATRIAL FIBRILLATION INFERIOR MYOCARDIAL INFARCTION , PROBABLY OLD [40+ ms Q WAVE AND/OR ST/T ABNORMALITY IN II/aVF] Compared to ECG 03/17/2024 23:54:14 NO SIGNIFICANT CHANGES Electronically Signed On 08-09-2024 16:27:39 ATHLETIC DIRECTOR by Maria Isabel Cesar M.D.
--- OUTSIDE RECORDS SUMMARY | 2024-08-09 03:16 | XMS_ITS | Clinical Summary ---
Author Organization [facility] Address [address] [place] [address] Care Team Providers Care Automotive Starter Repairer Name Role Phone Unavailable Primary Care Provider [...]
--- OUTSIDE RECORDS SUMMARY | 2024-08-09 03:16 | XMS_ITS | Continuity of Care Document ---
Author Organization [facility] Address [address] [place] [address] [address] [place] [address] Phone Care Team Providers Care Contact Center Agent Name Role Phone Angel OD, Jr Unavailable Unavailable Procedures Procedure Date Office/outpatient Visit, Est Eye Exam, New Patient Advance Directives Directive Yes / No Effective Date File Name No Information Encounters Encounter Description Practice Location Reason(s) For Visit Diagnoses Date Provider Providers Copied on Encounter Office/outpat ient Visit, Est [facility], [address], [place], [place], [id number], tel:[phone] [facility] No Information Sep-2 5-200 8 Angel OD Jr. [address], [place], [place], Formerly named [facility], [place]. tel:[phone] [facility], [address] [place] [address] [address], [place], [place], [id number], tel:[phone] [facility] No Information Sep-1 8-200 8 Angel OD Jr. [address], [place], [address], [place]. tel:[phone] Family History Family Member Type Diagnosis Age At Onset No Information Payers Payer name Insurance type Covered alliance party ID Authoriza tion(s) No Information Social [...]
--- OUTSIDE RECORDS SUMMARY | 2024-08-09 03:16 | XMS_ITS | Patient Health Summary ---
Author Organization [facility] Address [address] [place] [address] Care Team Providers Care Manager Special Events Name Role Phone Marie Matias MD Unavailable [phone] Note from [facility],non-owned Affiliates and Associated Physician Practices is amultiple site organization consisting of ambulatory clinics and hospital sitesin [place], [place], [place] and [place]. This disclosure is being madepursuant to the Care Everywhere program and may not contain all information available regarding this patient. Last updated 18.[facility] [employer] Allergies No known active allergies Medications * [...] 1 Tab by mouth once daily. 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 11/19/2018 09/21/2023 Angina [...] Comments Blood Pressure 126/86 04/09/2024 12:40 PM BINDERY WORKER Pulse 98 04/09/2024 12:40 PM BINDERY WORKER Temperature 36.6 C (97.8 F) 08/06/2014 11:36 AM BINDERY WORKER Respiratory Rate 10 03/07/2022 7:51 AM CDT Oxygen Saturation 97% 04/09/2024 12:40 PM BINDERY WORKER Inhaled Oxygen Concentration - - Weight 72.7 kg (160 lb 3.2 oz) 04/09/2024 12:40 PM BINDERY WORKER Height 157.5 cm (5' 2 ) 04/09/2024 12:40 PM BINDERY WORKER Body Mass Index 29.3 04/09/2024 12:40 PM BINDERY WORKER Procedures * ALPHA FETOPROTEIN BLOOD TUMOR MARKER(Performed [...] DIFFERENTIAL(Performed 09/19/2023) Performed for Hepatic fibrosis * [place] LIVER ELASTOGRAPHY(Performed 09/19/2023) Performed for Hepatic fibrosis [...] + MICRO EXAM(Performed 04/20/2010) Results * PT-INR [facility] (04/09/2024 2:07 PM BINDERY WORKER) Only the most recent of2 resultswithin the time period is included. PT 14.6 12.1 - 14.8 Seconds 04/09/2024 3:29 PM BINDERY WORKER [facility] INR 1.2 See Comment 04/09/2024 3:29 PM BINDERY WORKER [facility] Comment:The suggested therap eutic range for standard coumadin (warfarin) therapy is an INR of 2.0-3.0. For high-risk patients (Mechanical Mitral Valve Prosthesis, etc.), the suggested prophylactic therapeutic range is an INR of 2.5-3.5. Blood BLOOD SPECIMEN / Unknown Lab Venipuncture / Unknown 04/09/2024 2:07 PM BINDERY WORKER 04/09/2024 2:54 PM BINDERY WORKER Lazaro Gonzales MD LAB - COAGULATION OR DERABLES [facility] [address] [place] [address] [phone] * ALPHA FETOPROTEIN BLOOD TUMOR MARKER (04/09/2024 2:07 PM BINDERY WORKER) Only the most recent of2 resultswithin the time period is included. [facility] [address] Alpha-Fetoprote in Tumor Marker 3.3 <=8.3 ng/mL 04/09/2024 3:51 PM [facility] Comment: AFP values will vary depending on testing procedure used. Results are not comparable across different methods. AFP values obtained by [facility] using an Rivas Alinity Immunoassay. Blood BLOOD SPECIMEN / Unknown Lab Venipuncture / Unknown 04/09/2024 2:07 PM BINDERY WORKER 04/09/2024 3:00 PM BINDERY WORKER Lazaro Gonzales MD LAB - CHEMISTRY DEBBI KHAN [facility] [address] [place] [address], [facility] [phone] * (ABNORMAL) CBC WITH DIFFERENTIAL (04/09/2024 2:07 PM BINDERY WORKER) Only the most recent of5 resultswithin the time period is included. [facility] [address] WBC 9.2 4.0 - 10.7 x10E9/L 04/09/2024 3:18 PM [facility] RBC Count 4.55 3.90 - 5.20 x10E12/L 04/09/2024 3:18 PM [facility] Hemoglobin 12.6 11.9 - 15.8 g/dL 04/09/2024 3:18 PM [facility] Hematocrit 39.9 34.8 - 46.1 % 04/09/2024 3:18 PM [facility] MCV 87.7 80.0 - 98.0 fL 04/09/2024 3:18 PM [facility] MCH 27.7 26.7 - 33.6 pg 04/09/2024 3:18 PM [facility] MCHC 31.6(L) 31.7 - 36.3 g/dL 04/09/2024 3:18 PM [facility] RDW-CV 13.4 11.3 - 14.8 % 04/09/2024 3:18 PM [facility] Platelet Count 103(L) 150 - 420 x10E9/L 04/09/2024 3:18 PM [facility] MPV 04/09/2024 3:18 PM [facility] Comment:Unable to report Neutrophil % 80.8(H) 41.0 - 74.0 % 04/09/2024 3:18 PM [facility] Lymphocyte % 13.0(L) 17.0 - 47.0 % 04/09/2024 3:18 PM [facility] Monocyte % 5.3 3.0 - 11.0 % 04/09/2024 3:18 PM [facility] Eosinophil % 0.4 0.0 - 7.0 % 04/09/2024 3:18 PM [facility] Basophil % 0.3 0.0 - 1.6 % 04/09/2024 3:18 PM [facility] Immature Granulocytes % 0.2 0.0 - 1.0 % 04/09/2024 3:18 PM [facility] Neutrophil Absolute 7.40 1.60 - 7.50 x10E9/L 04/09/2024 3:18 PM [facility] Lymphocyte Absolute 1.19 1.00 - 4.40 x10E9/L 04/09/2024 3:18 PM [facility] Monocyte Absolute 0.49 0.15 - 1.00 x10E9/L 04/09/2024 3:18 PM [facility] Eosinophil Absolute 0.04 0.00 - 0.60 x10E9/L 04/09/2024 3:18 PM [facility] Basophil Absolute 0.03 0.00 - 0.13 x10E9/L 04/09/2024 3:18 PM [facility] Blood BLOOD SPECIMEN / Unknown Lab Venipuncture / Unknown 04/09/2024 2:07 PM BINDERY WORKER 04/09/2024 3:00 PM [facility] Lazaro Gonzales MD LAB - HEMATOLOGY ORD ERABLES [facility] [address] [place] [address] [phone] * (ABNORMAL) COMPREHENSIVE METABOLIC PANEL (04/09/2024 2:07 PM [facility]) Only the most recent of6 resultswithin the time period is included. BUN 22 7 - 26 mg/dL 04/09/2024 3:33 PM [facility] Creatinine 1.33(H) 0.56 - 0.96 mg/dL 04/09/2024 3:33 PM [facility] Sodium 140 136 - 145 mmol/L 04/09/2024 3:33 PM [facility] Potassium 3.9 3.5 - 4.5 mmol/L 04/09/2024 3:33 PM [facility] Chloride 104 98 - 107 mmol/L 04/09/2024 3:33 PM [facility] CO2 22 22 - 29 mmol/L 04/09/2024 3:33 PM [facility] Glucose 160(H) 70 - 99 mg/dL 04/09/2024 3:33 PM [facility] Calcium 9.4 8.4 - 10.2 mg/dL 04/09/2024 3:33 PM [facility] Protein Total 7.6 6.0 - 8.3 g/dL 04/09/2024 3:33 PM [facility] Albumin 3.4 3.4 - 5.0 g/dL 04/09/2024 3:33 PM [facility] Bilirubin Total 0.6 0.2 - 1.2 mg/dL 04/09/2024 3:33 PM [facility] Alkaline Phosphatase 155(H) 40 - 150 U/L 04/09/2024 3:33 PM [facility] ALT 12 5 - 55 U/L 04/09/2024 3:33 PM [facility] AST 20 5 - 34 U/L 04/09/2024 3:33 PM [facility] Anion Gap 14 6 - 16 04/09/2024 3:33 PM [facility] BUN/Creatinine Ratio 17 7 - 23 04/09/2024 3:33 PM [facility] Osmolality Calculated 297(H) 275 - 295 mOsm/kg 04/09/2024 3:33 PM BINDERY WORKER [facility] Albumin/Globulin Ratio 0.8(L) 1.1 - 2.3 04/09/2024 3:33 PM BINDERY WORKER [facility] eGFR by CKD-EPI 41(L) >=90 mL/min/1.7 3 m2 04/09/2024 3:33 PM BINDERY WORKER [facility] Blood BLOOD SPECIMEN / Unknown Lab Venipuncture / Unknown 04/09/2024 2:07 PM BINDERY WORKER 04/09/2024 3:00 PM BINDERY WORKER Lazaro Gonzales MD LAB - CHEMISTRY DEBBI KHAN Performing Organization Address City/[facility]/ZIP Co de Phone Number [address] [address], [facility] [phone] * BILIRUBIN DIRECT (04/09/2024 2:07 PM BINDERY WORKER) Bilirubin Conjugated 0.2 0.1 - 0.5 mg/dL 04/09/2024 3:33 PM BINDERY WORKER [facility] Blood BLOOD SPECIMEN / Unknown Lab Venipuncture / Unknown 04/09/2024 2:07 PM BINDERY WORKER 04/09/2024 3:00 PM BINDERY WORKER Lazaro Gonzales MD LAB - CHEMISTRY DEBBI KHAN Performing Organization Address City/[facility]/ZIP Co de Phone Number [address] [address], [place] [phone] * US ABDOMEN LIMITED (04/09/2024 11:00 AM BINDERY WORKER) Anatomical Region Laterality Modality Abdomen Ultrasound 04/09/2024 11:3 6 AM BINDERY WORKER Impressions 04/09/2024 2:42 PM BINDERY WORKER IMPRESSION: Liver Visualization Score A: No or minimal limitations. US-1 Negative. Repeat surveillance US in 6 months. Patent hepatic vasculature. 1.Hepatic cirrhosis without discrete hepatic observation. Report drafted by aRza Jackson MD IOliver MD have personally reviewed and interpreted this examination/study. > Interpreting Provider: Oliver Rosas MD on 04/09/2024 2:42 PM Narrative 04/09/2024 2:42 PM BINDERY WORKER PROCEDURE: US ABDOMEN LIMITED, DATE/TIME OF EXAM: 04/09/2024 11:03 AM, LOCATION [facility] INDICATION: K74.69: Other cirrhosis [...] DATE/TIME OF EXAM: 04/09/2024 11:03 AM, LOCATION [facility] INDICATION: K74.69: Other cirrhosis [...] of2 resultswithin the time period is included. [facility] [address] WBC 9.8 4.0 - 10.7 x10E9/L 09/19/2023 4:07 PM T [facility] RBC Count 4.76 3.90 - 5.20 x10E12/L 09/19/2023 4:07 PM T [facility] Hemoglobin 13.6 11.9 - 15.8 g/dL 09/19/2023 4:07 PM T [facility] Hematocrit 41.1 34.8 - 46.1 % 09/19/2023 4:07 PM T [facility] MCV 86.3 80.0 - 98.0 fL 09/19/2023 4:07 PM T [facility] MCH 28.6 26.7 - 33.6 pg 09/19/2023 4:07 PM T [facility] MCHC 33.1 31.7 - 36.3 g/dL 09/19/2023 4:07 PM T [facility] RDW-CV 12.6 11.3 - 14.8 % 09/19/2023 4:07 PM [facility] Platelet Count 127(L) 150 - 420 x10E9/L 09/19/2023 4:07 PM T [facility] MPV 12.7(H) 7.8 - 11.4 fL 09/19/2023 4:07 PM [facility] Blood BLOOD SPECIMEN / Unknown Lab Venipuncture / Unknown 09/19/2023 3:44 PM CDT 09/19/2023 4:01 PM CDT Lazaro Gonzales MD LAB - HEMATOLOGY ORD ERABLES [facility] [address] [place] [address], [facility] [phone] * HEPATITIS B SURFACE ANTIBODY (09/19/2023 3:44 PM CDT) [facility] [address] [facility] Hepatitis B Virus Surface Antibody Non-react ruel Non-react ruel 09/19/2023 5:23 PM CDT [facility] Comment: < 8 mIU/mL Hepatitis B surface Antibody (HBsAb). Nonreactive for HBsAb - individual is considered not immune to Hepatitis B Virus infection. Hepatitis B Surface Antibody Quantitative 0.0 <8.0 mIU/mL 09/19/2023 5:23 PM CDT [facility] Comment: Hepatitis B Surface Antibody Numeric Result Interpretation: Nonreactive: <8.0 mIU/mL Indeterminate: 8.0 - 12.0 mIU/mL Reactive: >12.0 mIU/mL Blood BLOOD SPECIMEN / Unknown Lab Venipuncture / Unknown 09/19/2023 3:44 PM CDT 09/19/2023 3:58 PM CDT Lazaro Gonzales MD LAB - CHEMISTRY DEBBI KHAN Performing Organization Address City/[facility]/ZIP Co de Phone Number [address] [address], [facility] [phone] * HEPATITIS B CORE ANTIBODY TOTAL (09/19/2023 3:44 PM CDT) HBc Antibody Total Non-reacti ve Non-reacti ve 09/19/2023 5:23 PM CDT [facility] Blood BLOOD SPECIMEN / Unknown Lab Venipuncture / Unknown 09/19/2023 3:44 PM CDT 09/19/2023 3:58 PM CDT Lazaro Gonzales MD LAB - CHEMISTRY DEBBI KHAN [address] [address], [place] [phone] * HEPATITIS B SURFACE ANTIGEN W RFLX CONFIRMATION (09/19/2023 3:44 PM CDT) Hepatitis B Virus Surface Antigen Non-reacti ve Non-reacti ve 09/19/2023 5:23 PM CDT [facility] Blood BLOOD SPECIMEN / Unknown Lab Venipuncture / Unknown 09/19/2023 3:44 PM CDT 09/19/2023 3:58 PM CDT Lazaro Gonzales MD LAB - CHEMISTRY DEBBI KHAN Performing Organization Address [facility]/ZIP Co de Phone Number [address] [address], [place] [phone] * IRON + TRANSFERRIN PANEL (09/19/2023 3:44 PM CDT) [facility] Iron 77 40 - 150 ug/dL 09/19/2023 5:05 PM CDT [facility] Transferrin 218 174 - 382 mg/dL 09/19/2023 5:05 PM CDT [facility] Transferrin Saturation % 28 16 - 50 % 09/19/2023 5:05 PM CDT [facility] TIBC Calculated 273 240 - 450 ug/dL 09/19/2023 5:05 PM CDT [facility] Blood BLOOD SPECIMEN / Unknown Lab Venipuncture / Unknown 09/19/2023 3:44 PM CDT 09/19/2023 3:58 PM CDT Lazaro Gonzales MD LAB - CHEMISTRY DEBBI KHAN Performing Organization Address [facility] Co de Phone Number [address] [address], [place] [phone] * HEPATITIS C ANTIBODY (09/19/2023 3:44 PM CDT) [facility] [address] [facility] Hepatitis C Antibody Non-react ruel Non-reac tive 09/19/2023 5:23 PM CDT [facility] Comment:Hepatitis C Antibody screen indicates no [...] - CHEMISTRY DEBBI KHAN Performing Organization Address [facility]/ZIP Co de Phone Number [facility] [address] [place] [address], [place] [phone] * (ABNORMAL) HEPATITIS A ANTIBODY (09/19/2023 3:44 PM CDT) [facility] [address] Hepatitis A Virus Antibody Total Positive( A) Negative 09/21/2023 6:10 PM CDT [employer] [facility] ([facility]) Comment: The positive anti-HAV is consistent with recent or remote Hepatitis A infection or antibody response to HAV vaccination. False positive anti-HAV can occur. Performed By: [employer] [address] [place] [address] Cogeneration Operator: Buddy King MD, PhD CLIA Number: [id number] Blood BLOOD SPECIMEN / Unknown Lab Venipuncture / Unknown 09/19/2023 3:44 PM CDT 09/19/2023 3:58 PM CDT Lazaro Gonzales MD LAB - CHEMISTRY DEBBI KHAN Performing Organization Address [facility] Co de Phone Number [facility] [address] [place] [phone] [place] [address] * (ABNORMAL) FERRITIN (09/19/2023 3:44 PM CDT) [facility] [address] [facility] Ferritin 660(H) 13 - 204 ng/mL 09/19/2023 5:23 PM CDT [facility] Blood BLOOD SPECIMEN / Unknown Lab Venipuncture / Unknown 09/19/2023 3:44 PM CDT 09/19/2023 3:58 PM CDT Lazaro Gonzales MD LAB - CHEMISTRY DEBBI KHAN Performing Organization Address [facility]/ZIP Co de Phone Number [facility] [address] [place] [address], [place] [phone] * [place] LIVER ELASTOGRAPHY (09/19/2023 2:21 PM CDT) Narrative [...] patients with nonalcoholic fatty liver disease. Gastroenterology 2019;156:8750-9054. Brittani MS, Mackenzie R, Ta GUDINO, et [...] at-risk nonalcoholic steatohepatitis (PIMENTEL) in a [place] cohort and comparison to other non-invasive algorithms. PLoS ONE (2021) 17: [id number]. Mamie AJ, Lee J, Kareen ZM, et al. Enhanced diagnosis of advanced fibrosis and cirrhosis in individuals with NAFLD using FibroScan-based Agile scores. J Hepatol (2022) 78: 247-259. Fibroscan LSM can also be used with laboratory parameters without formulas to assess prognosis. According to the Baveno-VII criteria (Lockwood, 202), Fibroscan LSM ?15 kPa plus a platelet count of ?461e695/L rules out clinically significant portal hypertension (sensitivity [...] FIB-4 score (Ayline et al. Hepatology Communications 2019;3:0334-7962) or NAFLD Fibrosis score (Handy et al. Clinical Gastroenterology and Hepatology 2019;17:5615-5869 using routine clinical data. Note: 1. Fibroscan [...] additional interpretive data was last updated 10/08/22.) [email or web address] Lazaro Gonzales MD PROCEDURE/MINOR SURG ICAL ORDERABLES * DERMATOPATHOLOGY (01/03/2023 11:11 AM CDT) Only the most recent of5 resultswithin the time period is included. Case Report Dermatopathology Report Case: [id number] Authorizing Provider: Jyotsna Tineo DO Collected: 01/03/2023 11:11 AM Ordering Location: [facility] Received: 01/03/2023 03:19 PM Pathologist: [...] of a non-oriented ellipse of skin measuring [id number] mm. The epidermal surface is unremarkable. The [...] characteristic determined by the Dermatopathology Laboratory at [facility], directed by Dr. Blair Garcia. These tests need not be, and therefore are not, approved by the [place] Food and Drug Administration. The tests are used for clinical purposes. Billing Codes Specimen Charges Stain Charges 65117 1 3 5:22 PM CDT [facility]ER[facility] LABOR[facility]ORY Embedded Images 3 5:22 PM CDT DERMATOPATHOLOGY LABORATORY Pathology/Cytolo gy TISSUE SPECIMEN FROM SKIN / Unknown 01/03/2023 11:11 AM CDT 01/03/2023 3:19 PM CDT Jyotsna Tineo DO LAB - PATHOLOGY/C YTOLOGY ORDERABLES DERMATOPATHOLOGY LABORATORY [facility] - Department of Dermatology [address], [address] [phone] * (ABNORMAL) HEMOGLOBIN A1C (03/30/2015 12:13 PM [...] CENTER LABORATORY - 03/30/2015 10:32 PM CDT [place] [employer] recommended the following cutoff levels: [...] - CHEM ISTRY ORDERABLES Performing Organization Address City/State/[facility] Co de Phone Number [facility] [address] * (ABNORMAL) BASIC METABOLIC PANEL (CALCIUM TOTAL) (03/30/2015 12:13 PM CDT) Only the most recent of5 resultswithin the time period is included. [facility] [address] Glucose 151(H) 70 - 125 mg/dL 03/30/2015 [...] >60 mL/min/1.7 3m2 03/30/2015 12:47 PM CDT [facility] eGFR by MDRD >60 >60 mL/min/1.7 3m2 03/30/2015 12:47 PM CDT [facility] Blood BLOOD SPECIMEN / Unknown Venipuncture / Unknown 03/30/2015 12:13 PM CDT 03/30/2015 12:21 PM CDT Ordering Provider Unlisted MD LAB - CHEM ISTRY ORDERABLES [facility] [address] * ALT (03/30/2015 12:13 PM CDT) Only the most recent of5 resultswithin the time period is included. Pathologist [facility] ALT 30 5 - 55 U/L 03/30/2015 12:47 PM CDT [facility] Blood BLOOD SPECIMEN / Unknown Venipuncture / Unknown 03/30/2015 12:13 PM CDT 03/30/2015 12:21 PM CDT Ordering Provider Unlisted MD LAB - CHEM ISTRY ORDERABLES Performing Organization Address City/[facility] de Phone Number [facility] [address] * (ABNORMAL) LIPID PROFILE (03/30/2015 12:13 PM CDT) Only the most recent of3 resultswithin the time period is included. Cholesterol 146 <200 mg/dL 03/30/2015 12:46 PM CDT [facility] Triglycerides 150(H) <150 mg/dL 03/30/2015 12:46 PM CDT [facility] HDL Cholesterol 34(L) >40 mg/dL 03/30/2015 12:46 PM CDT [facility] Chol HDL Ratio 4.3 1.0 - 6.0 03/30/2015 12:46 PM CDT [facility] LDL Calculated 82 65 - 130 mg/dL 03/30/2015 12:46 PM CDT AM LABORATORY VLDL Calculated 30 10 - 40 mg/dL 03/30/2015 12:46 PM CDT [facility] Blood BLOOD SPECIMEN / Unknown Venipuncture / Unknown 03/30/2015 12:13 PM CDT 03/30/2015 12:21 PM CDT [facility] - 03/30/2015 12:46 PM CDT Lipid [...] - CHEM ISTRY ORDERABLES [facility] [address] [place] [address], [place] * CARDIAC RHYTHM STRIP ORDER (08/12/2014 10:27 AM CDT) Narrative 08/12/2014 10:27 AM CDT Ordered by an unspecified provider. Scanned Document CARDIAC SERVICES ORD ERABLES * (ABNORMAL) GLUCOSE - POINT OF CARE (08/06/2014 11:32 AM BINDERY WORKER) Only the most recent of6 resultswithin the time period is included. Glucose WB/POC 251(H) 70 - 125 mg/dL 08/06/2014 1:41 PM BINDERY WORKER [facility] Blood BLOOD SPECIMEN / Unknown 08/06/2014 11:32 AM BINDERY WORKER 08/06/2014 1:41 PM BINDERY WORKER Narrative [facility] - 08/06/2014 1:41 PM BINDERY WORKER NOTIFIED CAREGIVER Francisca العراقي MD LAB - POINT OF CA RE ORDERABLES [facility] [address] * NM MYOCARD PERFUSION SPECT STRESS AND REST (08/06/2014 11:24 AM BINDERY WORKER) Anatomical Region Laterality Modality Chest Nuclear Medicine 08/06/2014 3:37 PM BINDERY WORKER Impressions 08/06/2014 6:21 PM BINDERY WORKER Mild myocardial ischemia felt to be present at the anterior wall and apex. No areas of myocardial infarction or additional areas of myocardial ischemia. Calculated LVEF of 82%. Phone call made to Luh Mccord informing her of preliminary report available in [facility] at hours on 08/06/2014. Narrative 08/06/2014 6:21 PM BINDERY WORKER GATED STRESS/REST SPECT MYOCARDIAL PERFUSION SCAN WITH [...] informing her of preliminary report available in [facility] at hours on 08/06/2014. Francisca العراقي MD [place] ORDERABLES * US BREAST LEFT LTD (08/06/2014 8:00 AM BINDERY WORKER) Anatomical Region Laterality Modality Breast Left Ultrasound 08/06/2014 9:33 AM BINDERY WORKER Impressions 08/07/2014 5:09 PM BINDERY WORKER Hypoechoic lesion at lower-outer quadrant of left breast with internal echoes and some posterior acoustical enhancement with etiology uncertain. Comparison with known outside studies necessary as discussed above. BI-RADS Category 0. Report faxed to the office of Dr. Dk Kong at 12:10 p.m. on 08/07/2014. Call subsequently made to Renate Jin to confirm receipt of report. Narrative 08/07/2014 5:09 PM BINDERY WORKER LEFT BREAST SONOGRAPHY: (08/06/2014) HISTORY: History of breast cancer with postoperative change noted in left breast at 08/04/2014 CT angiography of chest. 3.7 x 3.3 cm thick-walled hypodense collection in lower-outer quadrant of left breast was noted at CT study. Followup imaging. FINDINGS: No other comparison studies available at this time. Patient has prior mammography and sonography studies of breasts in [place], [place] according to information provided by patient. [...] states she is due for mammogram in [place], [place] and plans to take study with [...] mammography and sonography studies of breasts in [place], [place] according to information provided by patient. [...] states she is due for mammogram in [place], [place] and plans to take study with [...] ORDERABLES * (ABNORMAL) PT-INR (08/06/2014 6:07 AM BINDERY WORKER) Only the most recent of8 resultswithin the time period is included. PT 20.1(H) 9.6 - 11.5 sec 08/06/2014 6:36 AM BINDERY WORKER [facility] INR 1.92(L) 2 - 3 08/06/2014 6:36 AM BINDERY WORKER [facility] Blood BLOOD SPECIMEN / Unknown Lab Venipuncture / Unknown 08/06/2014 6:07 AM BINDERY WORKER 08/06/2014 6:12 AM BINDERY WORKER Narrative [facility] - 08/06/2014 6:36 AM BINDERY WORKER Recommended therapeutic INR ranges for Oral Anticoagulant Therapy: 2.0-3.0 For prevention of Thrombosis or Embolism and treatment of Venous Thrombosis. 2.5- 3.5 for prevention of Recurrent Embolism or treatment of patients with Mechanical Prosthetic Heart Valves. Arley Ng MD LAB - COAGULATION OR DERABLES [facility] [address] [place] [address], [facility] * PHOSPHORUS BLOOD (08/06/2014 6:07 AM BINDERY WORKER) Phosphorus 3.82 2.3 - 4.7 mg/dL 08/06/2014 7:08 AM BINDERY WORKER [facility] Blood BLOOD SPECIMEN / Unknown Lab Venipuncture / Unknown 08/06/2014 6:07 AM BINDERY WORKER 08/06/2014 6:13 AM BINDERY WORKER Francisca العراقي MD LAB - CHEMISTRY O RDERABLES Performing Organization Address [facility]/ZIP Co de Phone Number [facility] [address] * (ABNORMAL) MAGNESIUM BLOOD (08/06/2014 6:07 AM BINDERY WORKER) Magnesium 1.4(L) 1.6 - 2.6 mg/dL 08/06/2014 7:08 AM BINDERY WORKER [facility] Blood BLOOD SPECIMEN / Unknown Lab Venipuncture / Unknown 08/06/2014 6:07 AM BINDERY WORKER 08/06/2014 6:13 AM BINDERY WORKER Francisca العراقي MD LAB - CHEMISTRY O YOLYERAAUTUMN Performing Organization Address [facility] Co de Phone Number [facility] [address] * TROPONIN I (08/05/2014 5:53 AM BINDERY WORKER) Only the most recent of6 resultswithin the time period is included. Troponin I <0.012 <=0.049 ng/mL 08/05/2014 7:44 AM BINDERY WORKER [facility] Blood BLOOD SPECIMEN / Unknown Lab Venipuncture / Unknown 08/05/2014 5:53 AM BINDERY WORKER 08/05/2014 6:56 AM BINDERY WORKER Narrative [facility] - 08/05/2014 7:44 AM BINDERY WORKER Note: Diagnosis of myocardial infarction requires symptoms [...] - CHEMISTRY DEBBI KHAN Performing Organization Address [facility] Co de Phone Number [facility] [address] * LIPASE BLOOD (08/05/2014 5:53 AM BINDERY WORKER) Lipase 9 8 - 78 U/L 08/05/2014 7:37 AM BINDERY WORKER [facility] Blood BLOOD SPECIMEN / Unknown Lab Venipuncture / Unknown 08/05/2014 5:53 AM BINDERY WORKER 08/05/2014 6:56 AM BINDERY WORKER Arley Ng MD LAB - CHEMISTRY DEBBI KHAN Performing Organization Address City/[facility] Co de Phone Number [facility] [address] * TSH (08/05/2014 5:53 AM BINDERY WORKER) Pathologist [facility] TSH 1.0360 0.35 - 4.94 uIU/mL 08/05/2014 8:07 AM BINDERY WORKER [facility] Blood BLOOD SPECIMEN / Unknown Lab Venipuncture / Unknown 08/05/2014 5:53 AM BINDERY WORKER 08/05/2014 6:56 AM BINDERY WORKER Arley Ng MD LAB - CHEMISTRY DEBBI KHAN Performing Organization Address [facility] de Phone Number [facility] [address] * EKG 12-LEAD (08/05/2014 12:48 AM BINDERY WORKER) Only the most recent of5 resultswithin the time period is included. Ventricular Rate 69 BPM [facility] Atrial Rate 69 BPM [facility] P-R Interval 170 ms [facility] QRS Duration ms 78 ms [facility] Q-T Interval ms 446 ms [facility] QTC Calculation (Bezet) 477 ms [facility] Calculated P [place] 53 degrees [facility] Calculated R [place] -25 degrees [facility] Calculated T [place] 9 degrees [facility] Interpretation EKG Normal sinus rhythm Possible Inferior infarct , age undetermined Nonspecific T wave abnormality Anterolateral leads Abnormal ECG When compared with ECG of 04-AUG-2014 19:14, (Unconfirmed) Nonspecific T wave abnormality, worse in Anterolateral leads Confirmed by Sergio LAI, Carlos ([id number]) on 08/06/2014 3:22:34 PM [facility] 08/05/2014 12:4 8 AM BINDERY WORKER 08/06/2014 3:22 PM BINDERY WORKER Arley Ng MD ECG ORDERABLES [facility] * URINALYSIS ROUTINE W/REFLEX TO CULTURE (08/05/2014 12:11 AM BINDERY WORKER) Color UA Yellow 08/05/2014 12:25 AM [facility] Clarity UA Clear 08/05/2014 12:25 AM [facility] Glucose UA Negative Negative 08/05/2014 12:25 AM [facility] Bilirubin UA Negative Negative 08/05/2014 12:25 AM [facility] Ketone UA Negative Negative 08/05/2014 12:25 AM [facility] Specific [place] UA 1.010 1.005 - 1.030 08/05/2014 12:25 AM [facility] pH UA 5.5 5.0 - 8.0 pH 08/05/2014 12:25 AM [facility] Protein UA Negative Negative 08/05/2014 12:25 AM [facility] Urobilinogen UA 0.2 0.2 - 1.0 EU/dL 08/05/2014 12:25 AM [facility] Nitrite UA Negative Negative 08/05/2014 12:25 AM [facility] Blood UA Negative Negative 08/05/2014 12:25 AM [facility] Leukocyte UA Negative Negative 08/05/2014 12:25 AM [facility] Urine Microscopy Urine microscopy not indicated 08/05/2014 12:25 AM [facility] Reflex Status Culture not indicated 08/05/2014 12:25 AM [facility] Urine URINE SPECIMEN OBTAINED BY CLEAN CATCH PROCEDURE / Unknown 08/05/2014 12:11 AM BINDERY WORKER 08/05/2014 12:19 AM BINDERY WORKER Arley Ng MD LAB - URINALYSIS ORD ERABLES [facility] [address] [place] [address], [facility] * ECHOCARDIOGRAM 2D WITH DOPPLER (08/05/2014 12:00 AM BINDERY WORKER) 08/05/2014 Narrative [facility] - 08/05/2014 8:01 PM [facility] [address] [place] [address] Transthoracic Echocardiogram 2D, M-mode, Doppler, and Color Doppler Patient: JACKIE LANDIN MR #: [id number] : 1945 Age: 69 years Gender: Female Study date: 05-Aug-2014 Status: Outpatient Room: [address] [place] [address] HR: 70 bpm Height: 62 in Weight: 197.6 lb BSA: 1.9 m BP: 125/ 58 Ordering Physician: [facility] Hospitalist Referring Physician: Unlisted Ride Operator: [facility] Ride Operator: Carlos Hill MD Beekeeper: Alejandra Negron RDCS Summary: - Left ventricle: [...] Procedure Note Unknown, Provider - 08/05/2014 [facility] [address] [place] [address] Transthoracic Echocardiogram 2D, M-mode, Doppler, and Color Doppler Patient: JACKIE LANDIN MR #: [id number] : 1945 Age: 69 years Gender: Female Study date: 05-Aug-2014 Status: Outpatient Room: [address] [place] [address] HR: 70 bpm Height: 62 in Weight: 197.6 lb BSA: 1.9 m BP: 125/ 58 Ordering Physician: [facility] Referring Physician: Unlisted Ride Operator: [facility] Ride Operator: Carlos Hill MD Beekeeper: Alejandra Negron RDCS Summary: - Left ventricle: [...] generated for this procedure were personally reviewedby fl. Prepared and Electronically Authenticated Carlos Hill MD 05-Aug-2014 20:07:43 Francisca العراقي MD ECHO ORDERABLES [facility] * CT ANGIO CHEST WITH OR WO CONTRAST [id number] (08/04/2014 7:30 PM BINDERY WORKER) Anatomical Region Laterality Modality Chest Computed Tomogra phy 08/04/2014 8:06 PM BINDERY WORKER Impressions 08/04/2014 9:07 PM BINDERY WORKER 1. No evidence of pulmonary embolism or [...] study. Call made to Jackie Rudd, community development technician in the Emergency Department, who confirmed report available for review in [facility] at 2023 hours on 08/04/2014 with information given to provider. Narrative 08/04/2014 9:[address] ANGIOGRAPHY CHEST WITH INTRAVENOUS CONTRAST MATERIAL [...] study. Call made to Jackie Rudd, community development technician in the Emergency Department, who confirmed report available for review in [facility] at 2023 hours on 08/04/2014 with information given to provider. Chato Stoll MD CT ORDERABLES * XR CHEST 1VW PORTABLE (08/04/2014 5:37 PM BINDERY WORKER) Only the most recent of2 resultswithin the time period is included. Anatomical Region Laterality Modality Chest Radiographic Gabriela ging 08/04/2014 6:00 PM BINDERY WORKER Impressions 08/04/2014 9:07 PM BINDERY WORKER 1. No gross acute cardiopulmonary disease. Chest appearance similar to 01/21/2014. 2. Mild cardiomegaly. Mild atherosclerotic aorta. No CHF. 3. No consolidation or large pleural effusion. No apparent pneumothorax. Old granulomatous disease. Narrative 08/04/2014 9:07 PM BINDERY WORKER PORTABLE CHEST RADIOGRAPH 08/04/2014: HISTORY: Shortness of [...] RDERABLES * LDL CHOLESTEROL (07/03/2014 12:39 PM BINDERY WORKER) Only the most recent of3 resultswithin the time period is included. LDL Direct 106 0 - 129 mg/dL 07/04/2014 11:50 AM BINDERY WORKER [facility] ([facility]) Comment: INTERPRETIVE INFORMATION: LDL Cholesterol, Direct [...] reference intervals for this test in the [facility] Laboratory Test Directory ([employer]). Blood specimen (specimen) BLOOD SPECIMEN / Unknown Venipuncture / Unknown 07/03/2014 12:39 PM BINDERY WORKER 07/03/2014 12:54 PM BINDERY WORKER Dk Kong MD LAB - CHEMISTRY ORDParveen KHAN [facility] ([facility]) [address] [place], [place] [id number] [place] [address] * MICROALBUMIN URINE RANDOM (03/12/2014 11:04 AM CDT) Only the most recent of2 resultswithin the time period is included. Microalbumin Urine 20.0 0.0 - 20.0 mg/dL 03/12/2014 12:50 PM CDT [facility] Urine URINE / Unknown Venipuncture / Unknown 03/12/2014 11:04 AM CDT 03/12/2014 11:16 AM CDT Dk Kong MD LAB - URINE CHEMISTR Y ORDERABLES Performing Organization Address City/[facility] Co de Phone Number [facility] [address] * (ABNORMAL) PT PTT PANEL (01/21/2014 8:31 PM CDT) PT 20.3(H) 9.6 - 11.5 sec 01/21/2014 9:07 PM CDT [facility] INR 1.91(L) 2 - 3 01/21/2014 9:07 PM CDT [facility] PTT 31.5 24.0 - 32.0 sec 01/21/2014 9:07 PM CDT [facility] Blood BLOOD SPECIMEN / Unknown [...] Medina DO LAB - COAGULATION OR DERABLES [facility] [address] * (ABNORMAL) B-TYPE NATRIURETIC PEPTIDE (01/21/2014 8:31 PM CDT) BNP 134(H) 10 - 100 pg/mL 01/21/2014 9:26 PM CDT [facility] Blood BLOOD SPECIMEN / Unknown 01/21/2014 8:31 PM CDT 01/21/2014 8:45 PM CDT Narrative Authorizing Provider Result Lexy Medina DO LAB - CHEMISTRY ORDE RABLES Performing Organization Address [facility] Co de Phone Number [facility] [address] * MRI BREAST W/WO CONTRAST BILAT (11/10/2011 11:20 AM CDT) Anatomical Region Laterality Modality Breast Bilateral Magnetic Resonan ce 11/10/2011 2:06 PM CDT Narrative 11/10/2011 3:45 PM CDT MRI BILATERAL BREASTS WITH AND WITHOUT CONTRAST COMPUTER ANALYSIS WITH [employer] ON INDEPENDENT WORKSTATION INDICATION: Biopsy proven left breast 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 TECHNIQUE: Precontrast T1 and T2 weighted images with sequential contrast enhanced T1 weighted images of the breast. Standard MIPS were also obtained. 20 mL of Omniscan was injected intravenously. Analysis was performed with [employer] on independent workstation FINDINGS: Right breast: No [...] WITH AND WITHOUT CONTRAST COMPUTER ANALYSIS WITH [employer] ON INDEPENDENT WORKSTATION INDICATION: Biopsy proven left breast 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 TECHNIQUE: Precontrast T1 and T2 weighted images with sequential contrast enhanced T1 weighted images of the breast. Standard MIPS were also obtained. 20 mL of Omniscan was injected intravenously. Analysis was performed with [employer] on independent workstation FINDINGS: Right breast: No [...] Creatinine POCT 0.7 0.7 - 1.2 mg/dL [facility] POCT TESTING QC Verified yes Yes [facility] POC T TESTING Blood specimen (specimen) BLOOD SPECIMEN / Unknown 11/10/2011 10:13 AM CDT Dayanna Olsen DO LAB - POINT OF CARE ORDERABLES [facility] POCT TESTING [id number] [id number] * GROSS + MICRO EXAM (04/20/2010 8:00 AM BINDERY WORKER) Result CASE NUMBER [id number] Comment: ORDERING [...] similar to that seen in the mass. Appliance Mechanic portions are submitted for decalcification in A1. [...] material is being sent to [facility] in consultation. Read by KITTY DAUGHERTY M.D. DIAGNOSIS SOFT TISSUES RIGHT MIDDLE FINGER BIOPSY - BENIGN-APPEARING CARTILAGINOUS LESION, SUGGESTIVE OF SOFT TISSUE CHONDROMA. *Comment The material was sent to [facility] in consultation. Please see the [facility] report and letter signed by Surjit Diaz M.D. RELEASED BY KITTY DAUGHERTY MD MISCELLANEOUS SAMPLES / Unknown 04/20/2010 8:00 AM BINDERY WORKER 04/20/2010 10:58 AM BINDERY WORKER Historical Provider LAB - PATHOLOGY/C YTOLOGY ORDERABLES Care Teams Manager Special Events Relationship Specialty Start Date End Date Marie Matias MD [address] [place] [address] Internal Medicine 11/23/21
[2024-08-09 03:18] VITALS: BP 122/74; PULSE 91; RESP 15; TEMP 36.5; O2SAT 99
[2024-08-09 03:33] LABS: Basophils Absolute Auto 0.1 K/mm3 (0.0-0.1); Basophils Percent Auto 0.5 % (0.2-1.2); Eosinophils Absolute Auto 0.1 K/mm3 (0-0.3); Eosinophils Percent Auto 0.5 % (0-4.4); Hematocrit 37.7 % (37.0-47.0); Hemoglobin 12.1 g/dL (12.0-15.0); Immature Granulocyte Absolute 0.03 K/mm3 (0.00-0.031); Immature Granulocyte Percent A 0.3 % (0-0.5); Lymphocytes Absolute Auto 1.46 K/mm3 (0.9-3.2); Lymphocytes Percent Auto 14.9 % (18.3-44.2); Mean Corpuscular HGB Conc 32.1 g/dl (32-36); Mean Corpuscular Hemoglobin 28.1 pg (26-34); Mean Corpuscular Volume 87.5 fl (80-100); Mean Platelet Volume 12.5 fl (7.4-10.4); Monocytes Absolute Auto 0.8 K/mm3 (0.1-0.6); Monocytes Percent Auto 7.7 % (2.6-8.5); Neutrophils Absolute Auto 7.5 K/mm3 (1.3-6.7); Neutrophils Percent Auto 76.1 % (45.5-73.1); Platelet Count Result 117 k/mm3 (150-375); Red Blood Count 4.31 M/mm3 (4.2-5.4); Red Cell Distribution Width 12.6 % (11.5-14.5); White Blood Count 9.8 K/mm3 (4.5-10.0)
[2024-08-09 03:44] LABS: INR 1.2; Prothrombin Time 15.8 Seconds (11.1-14.7)
[2024-08-09 03:45] LABS: Partial Thromboplastin Time 34.8 Seconds (22.3-36.8)
[2024-08-09 03:46] LABS: Alanine Aminotransferase 16 U/L (6-35); Albumin Level 4.1 g/dL (3.5-5.1); Alkaline Phosphatase 155 U/L (38-126); Anion Gap 11 mmol/L (4-12); Aspartate Amino Transferase 25 U/L (14-36); Bilirubin,Total 0.9 mg/dL (0.2-1.3); Blood Urea Nitrogen 22 mg/dL (7-17); Calcium 9.3 mg/dL (8.4-10.2); Carbon Dioxide 29 mmol/L (22-30); Chloride 96 mmol/L (98-107); Estimated CRCL calculation 32 ml/min; Estimated Glomerular Filt Rate 43; Glucose 126 mg/dL (65-110); Lipase 114 U/L (23-300); Potassium 3.6 mmol/L (3.4-5.0); Sodium 136 mmol/L (137-145)
[2024-08-09 03:58] LABS: Troponin I < 0.012 ng/mL (0.000-0.034)
--- OUTSIDE RECORDS SUMMARY | 2024-08-09 04:51 | XMS_ITS | Referral Summary ---
Author Organization [facility] [place] [address] [facility] [address] Address [address] [place] [address] Care Team Providers Care Rotary Drier Name Role Phone Pinky Louise MD Unavailable [phone] Mackenzie Tobin PHARMACY TECHNOLOGIST Unavailable [phone] Loki Viramontes MD Unavailable [phone] Frank Moses MD Unavailable [phone] Nicole Sierra NP Primary Care Provider Encounters Date Type Department Care Team Description 08/02/2024 Results Follow-Up [facility] Cardiology [address] [facility] Building [address] [place] [address] Jyotsna Soto NP 08/02/2024 Orders Only [facility] Jyotsna Soto NP 07/31/2024 Telephone [facility] Cardiology [address] [place] [address] Maria Isabel Cesar MD 07/26/2024 10:00 AM TECHNICIAN ANATOMIC PATHOLOGY Therapy [facility] Medical Office Bldg 1 OP Physical Therapy [address] [facility] [address] [place], [place] [id number] Vesna Lopez, PT Dizziness and giddiness (Primary Dx) 07/18/2024 Telephone [facility] Cardiology [address] [place] [address] Medicine 8th [place] [address] [place] [address] Ignacoi Obregon MD 07/18/2024 Plan of Care Documentation [facility] Medical Office Bldg 1 OP Physical Therapy [address] [place] [address] [place] [address] 07/18/2024 10:15 AM TECHNICIAN ANATOMIC PATHOLOGY Therapy [facility] Medical Office Bldg 1 OP Physical Therapy [address] [place] [address] [place] [address] Vesna Lopez, PT Dizziness and giddiness (Primary Dx) 07/11/2024 2:00 PM TECHNICIAN ANATOMIC PATHOLOGY Office Visit [facility] Cardiology [address] [place] [address] 8th [place] [address] [place] [address] Jyotsna Soto, ADRIANA Longstanding persistent atrial fibrillation (HCC) (Primary Dx); S/P placement of cardiac pacemaker; Atrial fibrillation with RVR (HCC) 07/11/2024 1:30 PM TECHNICIAN ANATOMIC PATHOLOGY Ancillary Procedure [facility] Cardiology [address] [place] [address] 8th [place] [address] [place] [address] Sinus node dysfunction (HCC); Adjustment and management of cardiac pacemaker 07/04/2024 Telephone [facility] Otolaryngology [address] [place] [address] Brie Vincent LPN Order vestibular rehab 07/04/2024 4:15 PM TECHNICIAN ANATOMIC PATHOLOGY Telemedicine [facility] Otolaryngology [address] [place] [address] Mehul aMrtinez II, MD Dizziness and giddiness (Primary Dx) 07/04/2024 1:00 PM TECHNICIAN ANATOMIC PATHOLOGY Procedure visit [facility] Otolaryngology [address] [place] [address] Deanna Galvez Dizziness and giddiness (Primary Dx) 06/20/2024 1:45 PM TECHNICIAN ANATOMIC PATHOLOGY Procedure visit [facility] Otolaryngology [address] [place] [address] Deanna Watters Dizziness and giddiness (Primary Dx); Sensorineural hearing loss (SNHL) of both ears; Tinnitus of both ears 06/20/2024 2:00 PM TECHNICIAN ANATOMIC PATHOLOGY Office Visit [facility] Physicians [facility] Otolaryngology [address] [place] [address] Mehul Martinez II, MD Sensorineural hearing loss (SNHL) of both ears (Primary Dx); Dizziness and giddiness 05/13/2024 Orders Only [facility] Cardiology [address] [facility] 8th [place] [address] [place] [address] Ignacio Obregon MD from Last 3 Months [...] 1 tablet (3 mg total) by mouth photograph enlarger before breakfast Active aspirin 325 mg tabletIndicati [...] 10/20/2022 Assessment & Plan (07/11/2024 3:34 PM TECHNICIAN ANATOMIC PATHOLOGY): -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 as [...] (06/27/2022): Added automatically from request for surgery [id number] A-fib 02/14/2022 Assessment & Plan (10/11/2022 11:47 [...] (07/11/2019): Added automatically from request for surgery [id number] Coronary artery disease invo lving [place] post[place] coronary artery of [place] post[place] heart without angina pectoris 11/19/2018 Angina pectoris, unstable 11/07/2018 Overview (11/07/2018): Added automatically from request for surgery [id number] GI bleed 08/06/2018 Assessment & Plan (08/29/2020 [...] fibrillation Assessment & Plan (07/11/2024 3:39 PM TECHNICIAN ANATOMIC PATHOLOGY): -Persistent AF and bradycardia s/p dual chamber [...] EF 72%, fixed apical defect c/w prior [place]. Assessment & Plan (08/28/2020 7:53 PM CDT): - TTE in 09/2018 w/ G3DD. Home metop XL 12.5, losartan 25, lasix 20. - PCI 2018 w/ 1 stent to LAD. MPI stress 05/2020 w/ EF 72%, fixed apical defect c/w prior [place]. Essential hypertension 09/13/201910/20 Assessment & Plan (02/16/2022 [...] often do you attend chur ch or druze services? Never 08/29/2022 Do you belong to any clubs o r organizations such as sabianist groups, unions, fraternal or athletic groups, or [...] place to sleep or slept in a care home (including now)? No 08/29/2022 Personal Safety Answer Date Recorded Have you ever been in or are you currently in a harmful physical or emotional relationship or is someone making you feel afraid or unsafe? Denies 10/10/2022 Comments No Sex and Gender Information Value Date Recorded Sex Assigned at Not on file Legal Sex Female 2:00 AM TECHNICIAN ANATOMIC PATHOLOGY Gender Identity Not on file Sexual Orientation Not on file Last Filed Vital Signs Vital Sign Reading Time Taken Comments Blood Pressure 106/64 04/22/2024 11:37 AM TECHNICIAN ANATOMIC PATHOLOGY Pulse 91 07/11/2024 1:22 PM TECHNICIAN ANATOMIC PATHOLOGY Temperature 36.7 C (98.1 F) 04/14/2023 8:56 AM TECHNICIAN ANATOMIC PATHOLOGY Respiratory Rate 18 06/20/2024 1:50 PM TECHNICIAN ANATOMIC PATHOLOGY Oxygen Saturation 95% 07/11/2024 1:22 PM TECHNICIAN ANATOMIC PATHOLOGY Inhaled Oxygen Concentration - - Weight 73.3 kg (161 lb 9.6 oz) 07/11/2024 1:22 P M TECHNICIAN ANATOMIC PATHOLOGY Height 157.5 cm (5' 2 ) 07/11/2024 1:22 PM TECHNICIAN ANATOMIC PATHOLOGY Body Mass Index 29.56 07/11/2024 1:22 PM TECHNICIAN ANATOMIC PATHOLOGY Plan of Treatment Not on file Medical Devices Implanted Type Area Records Analysis Manager Device Identifier Shelf Expiration Date Model / Serial / Lot Navera Inc [id number] System 6-12fr Mvp Venous Closure Vascade - [id number] Implanted:Qt y: 1 on 08/28/2020 by Crow Gramajo MD at [facility] Collagen Left: Femoral [employer] Inc 06/23/2022 [id number] / / [id number] Description:LFV sheath [employer] [id number] System 6-12fr Mvp Venous Closure Vascade - [id number] Implanted:Qt y: 1 on 08/28/2020 by Crow Gramajo MD at [facility] Collagen Right: Femoral [employer] 06/23/2022 [id number] / / [id number] Description:RFV sheath X 1 [employer] Tendril Sts 6fr 52cm Is-1 Connector Active Fixation Bipolar Soft /52 - [id number] - [id number] Implanted:Qt y: 1 on 10/10/2022 by Ignacio Obregon MD at [facility] Lead Right: Ventricle [employer] 08/02/2025 [id number]/52 / [id number] / [employer] Tendril Sts 6fr 46cm Is-1 Connector Bipolar Active Fixation /46 - [id number] - [id number] Implanted:Qt y: 1 on 10/10/2022 by Ignacio Obregon MD at [facility] Lead Right: Atria [employer] 08/02/20258TC/46 / [id number] / [employer] Joanne [id number] Device Closure Watchman Pebax Nitinol Gakona Iridium Pet 24mm L75cm Od12 Fr [id number] Fr [address] Stopcock Y Adapter Self Expand Proximal Face Sterile Disposable Left Atrial Appendage - [id number] Implanted:Qt y: 1 on 08/28/2020 by Ignacio Obregon MD at [facility] Other - see comments Left: Heart [employer] Joanne 03/23/2022 [id number] / / [id number] Description:Left atrial appe ndage closure device with delivery system [employer] Assurity Mri [id number] 2 Chamber Is-1 Connector Thk6mm Pacemaker [id number] - [id number] - [id number] Implanted:Qt y: 1 on 10/10/2022 by Ignacio Obregon MD at [facility] Pacemaker Right: Chest Wall [employer] 03/04/2024 [id number] / [id number] / [id number] Medtronic Usa Inc X [id number] Resolute Stefano 3.5mm 2.1-2.7fr 18mm 140cm Rapid Exchange - [id number] Implanted:Qt y: 1 on 11/26/2018 by Ildefonso Barrios MD PhD at [facility] Stent Medtronic Inc 09/05/2020 [id number] / / [id number] [employer] Inc Vascade Mvp 6-12fr Venous Closure [id number] - [id number] - [id number] Implanted:Qt y: 1 on 10/10/2022 by Ignacio Obregon MD at [facility] Vascular Closure Device Right: Femoral Vein [employer] 03/15/2024 [id number] / [id number] / [id number] Lens Bilateral: Eye Device Lizzy Watchman Procedure - [id number] Implanted:Qt y: 1 on 08/28/2020 by Ignacio Obregon MD at [facility] [employer] WMPERPROCDEVICE 1-3 PC / / Procedures Procedure Name Priority Date/Time Associated Diagnosis Comments CARDIOLOGY DOCUMENT SCAN 08/02/2024 11:20 AM TECHNICIAN ANATOMIC PATHOLOGY DEVICE CHECK - IN OFFICE Routine 07/11/2024 1:13 PM TECHNICIAN ANATOMIC PATHOLOGY Sinus node dysfunction (HCC) Adjustment and management of cardiac pacemaker DEVICE CHECK - REMOTE Routine 05/13/2024 4:00 AM TECHNICIAN ANATOMIC PATHOLOGY POCT LIPID PANEL Routine 04/22/2024 11:4 3 AM TECHNICIAN ANATOMIC PATHOLOGY Lipid screening EGFR Routine 10/11/2022 4:40 AM CDT HEMOGLOBIN A1C STAT 08/28/2022 3:07 AM CDT from Last 3 Months or Most Recently Relevant to Health Maintenance Results * Cardiology Document Scan (08/02/2024 11:20 AM TECHNICIAN ANATOMIC PATHOLOGY) Anatomical Region Laterality Modality Other Jyotsna Soto NP CV CARDIAC SERVICES PROCE DURES Final Result * DEVICE CHECK - IN OFFICE (07/11/2024 1:13 PM TECHNICIAN ANATOMIC PATHOLOGY) Anatomical Region Laterality Modality Other 07/11/2024 2:00 AM TECHNICIAN ANATOMIC PATHOLOGY Narrative 07/12/2024 10:54 AM TECHNICIAN ANATOMIC PATHOLOGY Interpretation Summary: Battery and Leads (BL) Normal [...] DEVICE CHECK - REMOTE (05/13/2024 4:00 AM TECHNICIAN ANATOMIC PATHOLOGY) Anatomical Region Laterality Modality Other 05/13/2024 4:00 AM TECHNICIAN ANATOMIC PATHOLOGY Narrative 05/19/2024 1:20 PM TECHNICIAN ANATOMIC PATHOLOGY Interpretation Summary: Battery and Leads (BL) Normal parameters noted on battery and lead(s) --- 5 to 9 years remaining (this is an estimate based on prior usage) Presenting Rhythm (MT) Atrial Fibrillation or Flutter Ventricular Sensing (VS) [...] estimate based on prior usage) Presenting Rhythm (MT) Atrial Fibrillation or Flutter Ventricular Sensing (VS) [...] * POCT lipid panel (04/22/2024 11:43 AM TECHNICIAN ANATOMIC PATHOLOGY) Cholesterol, POC 119 mg/dL HDL, POC 35 mg/dL Triglycerides, POC 102 mg/dL LDL Cholesterol POC 64 mg/dL Chol/HDL Ratio, POC 1.9 Non-HDL Cholesterol, POC 85 mg/dL Cholesterol Total, POC 119 mg/dL Capillary blood 04/22/2024 1 1:43 AM TECHNICIAN ANATOMIC PATHOLOGY Sindhu Patrick NP POINT OF CARE TEST ORDERA BLES Final Result * (ABNORMAL) eGFR (10/11/2022 4:40 AM CDT) eGFR 41(L) 90 - 130 mL/min/1. [address] [facility] Comment: Interpretive Data Reference Interval Normal [...] ORDERABLES Final R esult Performing Organization Address [facility] Co de Phone Number [facility] [place] [address] * (ABNORMAL) Hemoglobin A1c (08/28/2022 3:07 AM CDT) Hgb A1C 6.1(H) 4.0 - 5.6 % [facility] Estimated Average Glucose 128 mg/dL [facility] Comment: The ADA recommends reporting [...] ORDERABLES Final Re sult Performing Organization Address [facility]/ZIP Co de Phone Number [facility] [place] [address] from Last 3 Months or Most Recently Relevant to Health Maintenance Insurance MEDICARE [facility] MEDICARE [facility] MEDICARE [facility] MEDICARE MEDICARE MEDICARE [facility] Advance Directives For more information, please contact: [phone] * Full Code (Latest Code Status on [...] 4:14 AM 11/07/2020 6:56 PM Care Teams Rotary Drier Relationship Specialty Start Date End Date Nicole Sierra NP [address] [place] [address] PCP - General Nurse Practitioner 07/20/23 Pinky Louise MD Consulting Physician Gastroenterology 10/02/18 Mackenzie Tobin NP [address] [address] Nurse Practitioner Medical Oncology 02/09/22 [place] [address] [place] [address] Consulting Physician Urology 08/06/22 [place] [address] [place] [address] Consulting Physician Cardiology 08/06/22
--- OUTSIDE RECORDS SUMMARY | 2024-08-09 04:51 | XMS_ITS ---
Author Organization [facility] [place] [address] Address [address] [place] [address] Care Team Providers Care Borderer Name Role Phone Pinky Louise MD Unavailable [phone] Mackenzie Tobin NP Unavailable [phone] Loki Viramontes MD Unavailable [phone] Frank Moses MD Unavailable Nicole Sierra NP Primary Care Provider [phone] Active Problems Problem Noted Date Diagnosed Date Sensorineural hearing loss (SNHL) of both ears 0 06/20/2024 Dizziness and giddiness 06/20/2024 S/P placement of cardiac pacemaker 10/20/2022 Assessment & Plan (07/11/2024 3:34 PM COLLEGE SERVICE OFFICER): -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 as [...] (06/27/2022): Added automatically from request for surgery [id number] A-fib 02/14/2022 Assessment & Plan (10/11/2022 11:47 [...] (07/11/2019): Added automatically from request for surgery [id number] Coronary artery disease invo lving [place] coronary artery of [place] and [place] heart without angina pectoris 11/19/2018 Angina pectoris, unstable 11/07/2018 Overview (11/07/2018): Added automatically from request for surgery [id number] GI bleed 08/06/2018 Assessment & Plan (08/29/2020 [...] fibrillation Assessment & Plan (07/11/2024 3:39 PM COLLEGE SERVICE OFFICER): -Persistent AF and bradycardia s/p dual chamber [...] EF 72%, fixed apical defect c/w prior [place]. Assessment & Plan (08/28/2020 7:53 PM CDT): - TTE in 09/2018 w/ G3DD. Home metop XL 12.5, losartan 25, lasix 20. - PCI 2018 w/ 1 stent to LAD. MPI stress 05/2020 w/ EF 72%, fixed apical defect c/w prior [place]. Essential hypertension 09/13/201910/20 Assessment & Plan (02/16/2022 [...]
--- OUTSIDE RECORDS SUMMARY | 2024-08-09 04:51 | XMS_ITS | Clinical Summary ---
Author Organization [facility] Address [address] [place] [address] Care Team Providers Care Cattle Farmer Name Role Phone Parveen Escobar MD Primary Care Provider [phone] Allergies Active Allergy Reactions Criticality Noted Date [...] 02/04/202408/2020 Insurance MEDICARE PART A AND B [facility] [id number] Member Subscriber Plan / Payer (Ef fective 2020-Present) Name:Jackie Waddell Relation to Subscriber:Self Name:Jackie Waddell Payer ID:[id number] (NAIC) Group ID:Not on file Type:Supplemental Address: [place] [id number] Care Teams Cattle Farmer Relationship Specialty Start Date End Date Parveen Escobar MD [address] [place] [id number] PCP - General Internal Medicine 10/15/20
--- OUTSIDE RECORDS SUMMARY | 2024-08-09 04:51 | XMS_ITS | Continuity of Care Document ---
Author Organization [facility] Address [address] [place] [address] [address] [place] [address] Phone Care Team Providers Care Commander Internal Affairs Name Role Phone Angel OD, Jr Unavailable Unavailable Procedures Procedure Date Office/outpatient Visit, Est Eye Exam, New Patient Advance Directives Directive Yes / No Effective Date File Name No Information Encounters Encounter Description Practice Location Reason(s) For Visit Diagnoses Date Provider Providers Copied on Encounter Office/outpat ient Visit, Est [facility], [address], [place], [place], [id number], tel:[phone] [facility] No Information Sep-2 5-200 8 Angel OD Jr. [address], [place], [place], [facility], [place]. tel:[phone] [facility], [address] [place] [address] [address], [place], [place], [id number], tel:[phone] [facility] No Information Sep-1 8-200 8 Angel OD Jr. [address] , [address], [place], [address], [place]. tel:[phone] Family History Family Member Type Diagnosis Age [...]
--- OUTSIDE RECORDS SUMMARY | 2024-08-09 04:51 | XMS_ITS | Encounter Summary ---
Author Organization [facility] Address [address] [place] [address] Phone Care Team Providers Care Chemical Process Operator Name Role Phone Pinky Louise MD Unavailable [phone] Mackenzie Tobin NP Unavailable [phone] Loki Viramontes MD Unavailable [phone] Frank Moses MD Unavailable [phone] Nicole Sierra NP Primary Care Provider [phone] Encounter Details Date Type Department Care Team (Late st Contact Info) Description 08/02/2024 Results Follow-Up [facility] Cardiology [address] [facility] [address] [place] [address] Jyotsna Soto, ADRIANA [address] [place] [phone] Social History Tobacco Use Types Packs/Day Years [...] any clubs o r organizations such as restorationist groups, unions, fraternal or athletic groups, or [...] place to sleep or slept in a assisted (including now)? No 08/29/2022 Personal Safety Answer Date Recorded Have you ever been in or are you currently in a harmful physical or emotional relationship or is someone making you feel afraid or unsafe? Denies 10/10/2022 Comments No Sex and Gender Information Value Date Recorded Sex Assigned at Not on file Legal Sex Female 2:00 AM CUSTOMER SUPPORT ADVISOR Gender Identity Not on file Sexual Orientation Not on file documented as of this encounter Plan of Treatment Not on file documented as of this encounter Visit Diagnoses Not on filedocumented in this encounter Care Teams Chemical Process Operator Relationship Specialty Start Date End Date Nicole Sierra NP [address] [place] [address] PCP - General Nurse Practitioner 07/20/23 Pinky Louise MD Consulting Physician Gastroenterology 10/02/18 Mackenzie Tobin NP [address] [place] [address] Nurse Practitioner Medical Oncology 02/09/22 [place] [address] [place] [address] Consulting Physician Urology 08/06/22 [place] [address] [place] [address] Consulting Physician Cardiology 08/06/22 documented as of this encounter
--- OUTSIDE RECORDS SUMMARY | 2024-08-09 04:51 | XMS_ITS | Clinical Summary ---
Author Organization [facility] Address [address] [place] [address] Care Team Providers Care Casino Floor Walker Name Role Phone Unavailable Primary Care Provider [...]
--- OUTSIDE RECORDS SUMMARY | 2024-08-09 04:51 | XMS_ITS | Encounter Summary ---
Author Organization [facility] Address [address] [facility] [place] [address] Care Team Providers Care Airline Radio Operator Name Role Phone Marie Matias MD Unavailable [phone] Encounter Details Date Type Department Care Team (Late Contact Info) Description 11/22/2022 Lab Requisition [facility] - DermPath Lab [address] [facility], [place] [address] Jyotsna Tineo, DO [address] [facility] 3L [place] [address] Social History Tobacco Use Types Packs/Day Years [...] Info) Description 12/05/2024 11:00 AM CDT Appointment [facility] [address] [place] [phone] Lazaro Gonzales MD [address] [place] [address] 12/05/2024 1:00 PM CDT Office Visit [facility] - GI [address] [facility] [place] [address] Lazaro Gonzales MD [address] [place] [address] documented as of this encounter Procedures Procedure Name Priority Date/Time Associated Diagnosis Comments DERMATOPATHOLOGY Routine 11/21/2022 1:39 PM CDT documented in this encounter Results * DERMATOPATHOLOGY (11/21/2022 1:39 PM CDT) Case Report Dermatopathology Report Case: [id number] Authorizing Provider: Jyotsna Tineo DO Collected: 11/21/2022 01:39 PM Ordering Location: [facility] Derm[facility] Lab Received: 11/22/2022 12:49 [...] characteristic determined by the Dermatopathology Laboratory at [facility], directed by Dr. Blair Garcia. These tests need not be, and therefore are not, approved by the [place] Food and Drug Administration. The tests are used for clinical purposes. Billing Codes Specimen Charges Stain Charges 71719 1 3 4:14 PM CDT DERMATOPATHOLOGY LABORATORY Embedded Images 3 4:14 PM CDT DERMATOPATHOLOGY LABORATORY Pathology/Cytolo gy TISSUE SPECIMEN FROM SKIN / Unknown 11/21/2022 1:39 PM CDT 11/22/2022 12:49 PM CDT Jyotsna Tineo DO LAB - PATHOLOGY/C YTOLOGY ORDERABLES DERMATOPATHOLOGY LABORATORY [facility] - Department of Dermatology [facility] Medicine [address] [facility], 3rd Floor [address] [phone] documented in this encounter Visit Diagnoses Not on filedocumented in this encounter Care Teams Airline Radio Operator Relationship Specialty Start Date End Date Marie Matias MD [address] [place] [address] Internal Medicine 11/23/21 documented as of this encounter
--- OUTSIDE RECORDS SUMMARY | 2024-08-09 04:51 | XMS_ITS | Referral Summary ---
Author Organization [facility] Address [address] [facility] [place] [address] Care Team Providers Care Church Warden Name Role Phone Marie Matias MD Unavailable [phone] Source Comments [facility],non-owned Affiliates and Associated Physician Practices is amultiple site organization consisting of ambulatory clinics and hospital sitesin [place], [place], [place] and [place]. This disclosure is being madepursuant to the Care Everywhere program and may not contain all information available regarding this patient. Last updated 18.[facility] [employer] International Encounters Date Type Department Care Team Description 07/26/2024 Travel 07/26/2024 Telephone [facility] - [address] [place] [address] Sammie Pereira, RN Appointment from [...] 1 Tab by mouth once daily. 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 11/19/2018 09/21/2023 Angina pectoris, unstable 11/07/20182023 Overview (09/21/2023): Added automatically from request for surgery [id number] H/O TIA (transient ischemic attack) and stroke [...] Comments Blood Pressure 126/86 04/09/2024 12:40 PM EMERGENCY VETERINARY ASSISTANT Pulse 98 04/09/2024 12:40 PM EMERGENCY VETERINARY ASSISTANT Temperature 36.6 C (97.8 F) 08/06/2014 11:36 AM EMERGENCY VETERINARY ASSISTANT Respiratory Rate 10 03/07/2022 7:51 AM CDT Oxygen Saturation 97% 04/09/2024 12:40 PM EMERGENCY VETERINARY ASSISTANT Inhaled Oxygen Concentration - - Weight 72.7 kg (160 lb 3.2 oz) 04/09/2024 12:40 PM EMERGENCY VETERINARY ASSISTANT Height 157.5 cm (5' 2 ) 04/09/2024 12:40 PM EMERGENCY VETERINARY ASSISTANT Body Mass Index 29.3 04/09/2024 12:40 PM EMERGENCY VETERINARY ASSISTANT Functional Status Functional Status Response Date of [...] Info) Description 12/05/2024 11:00 AM CDT Appointment [facility] [address] [place] [address] Lazaro Gonzales MD [address] [place] [address] 12/05/2024 1:00 PM CDT Office Visit [facility] - [address] [place] [address], [place] [address] Lazaro Gonzales MD [address] [place] [address] Goals Goal Patient Goal Type Associated Problems Recent Progress Patient-Stated? Author Medication Management General No Lizzie Valente, RN Note: Expected end date: ongoing Interventions: Take all medications as prescribed Procedures Procedure Name Priority Date/Time Associated Diagnosis Comments COMPREHENSIVE METABOLIC PANEL Routine 04/09/2024 2:07 PM EMERGENCY VETERINARY ASSISTANT Other cirrhosis of liver (HCC) HEPATITIS C [...] (ABNORMAL) COMPREHENSIVE METABOLIC PANEL (04/09/2024 2:07 PM [facility]) BUN 22 7 - 26 mg/dL 04/09/2024 [...] >=90 mL/min/1.7 3 m2 04/09/2024 3:33 PM EMERGENCY VETERINARY ASSISTANT [facility] Blood BLOOD SPECIMEN / Unknown Lab Venipuncture / Unknown 04/09/2024 2:07 PM EMERGENCY VETERINARY ASSISTANT 04/09/2024 3:00 PM EMERGENCY VETERINARY ASSISTANT Lazaro Gonzales MD LAB - CHEMISTRY DEBBI KHAN Performing Organization Address City/[facility]/ZIP Co de Phone Number [address] [address], [facility] [phone] * HEPATITIS C ANTIBODY (09/19/2023 3:44 PM CDT) [facility] Hepatitis C Antibody Non-react ruel Non-reac tive 09/19/2023 5:23 PM CDT [facility] Comment:Hepatitis C Antibody screen indicates no serologic [...] - CHEMISTRY DEBBI KHAN Performing Organization Address City/[facility]/ZIP Co de Phone Number [address] [address], [facility] [phone] * (ABNORMAL) HEMOGLOBIN A1C (03/30/2015 12:13 PM CDT) Pathologist [facility] Hemoglobin A1c 7.4(H) 4.2 - 5.8 % 03/30/2015 10:32 PM CDT [facility] Estimated Average Glucose 166 mg/dL 03/30/2015 10:32 PM CDT [facility] Whole Blood BLOOD SPECIMEN WITH EDTA / Unknown Venipuncture / Unknown 03/30/2015 12:13 PM CDT 03/30/2015 12:21 PM CDT Narrative [facility] - 03/30/2015 10:32 PM CDT [employer] recommended the following cutoff levels: [...] - CHEM ISTRY ORDERABLES Performing Organization Address [facility] Co de Phone Number [facility] [address] * MICROALBUMIN URINE RANDOM (03/12/2014 11:04 AM CDT) Microalbumin Urine 20.0 0.0 - 20.0 mg/dL 03/12/2014 12:50 PM CDT [facility] Urine URINE / Unknown Venipuncture / Unknown 03/12/2014 11:04 AM CDT 03/12/2014 11:16 AM CDT Dk Kong MD LAB - URINE CHEMISTR Y ORDERABLES Performing Organization Address [facility] Co de Phone Number [facility] [address] from Last 3 Months or Most Recently Relevant to Health Maintenance Advance Directives * Full Code (Latest Code Status on File) Date Activated Date Inactivated Comments 08/04/2014 10:20 PM 08/06/2014 5:15 PM Care Teams Church Warden Relationship Specialty Start Date End Date Marie Matias MD [address] [place] [address] Internal Medicine 11/23/21
--- OUTSIDE RECORDS SUMMARY | 2024-08-09 04:51 | XMS_ITS | Encounter Summary ---
Author Organization [facility] Address [address] [facility] [place] [address] Care Team Providers Care Space Buyer Name Role Phone Marie Matias MD Unavailable [phone] Encounter Details Date Type Department Care Team (Late Contact Info) Description 01/03/2023 Lab Requisition [facility] - [facility] Lab [address] [facility], [place] [address] Jyotsna Tineo, DO [address] [facility] [address]L [place] [address] Social History Tobacco Use Types Packs/Day Years [...] Description 12/05/2024 11:[address] [facility] [address] [place] [phone] Lazaro Gonzales MD [address] [place] [phone] 12/05/2024 1:00 PM CDT Office Visit [facility] - GI [address] [facility], [place] [phone] Lazaro Gonzales MD [address] [place] [phone] documented as of this encounter Procedures Procedure Name Priority Date/Time Associated Diagnosis Comments DERMATOPATHOLOGY Routine 01/03/2023 11:1 1 AM CDT documented in this encounter Results * DERMATOPATHOLOGY (01/03/2023 11:11 AM CDT) Case Report Dermatopathology Report Case: [id number] Authorizing Provider: Jyotsna Tineo DO Collected: 01/03/2023 11:11 AM Ordering Location: [facility] Received: 01/03/2023 03:19 PM [...] of a non-oriented ellipse of skin measuring 86j04y8 mm. The epidermal surface is unremarkable. The [...] purposes. Billing Codes Specimen Charges Stain Charges 89479 1 3 5:22 PM CDT [facility] LAB[facility] Embedded Images 3 5:22 PM CDT [facility] Pathology/Cytolo gy TISSUE SPECIMEN FROM SKIN / Unknown 01/03/2023 11:11 AM CDT 01/03/2023 3:19 PM CDT Jyotsna Tineo DO LAB - PATHOLOGY/C YTOLOGY ORDERABLES DERMATOPATHOLOGY LABORATORY [facility] - Department of Dermatology [facility] Medicine [address] [place] [address], [address] [phone] documented in this encounter Visit Diagnoses Not on filedocumented in this encounter Care Teams Space Buyer Relationship Specialty Start Date End Date Marie Matias MD [address] [place] [address] Internal Medicine 11/23/21 documented as of this encounter
--- OUTSIDE RECORDS SUMMARY | 2024-08-09 04:51 | XMS_ITS | Clinical Summary ---
Author Organization [facility] [address] Address [address] [place] [address] Care Team Providers Care Case Preparer And Liner Name Role Phone Pinky Louise MD Unavailable [phone] Mackenzie Tobin NP Unavailable [phone] Loki Viramontes MD Unavailable [phone] Frank Moses MD Unavailable [phone] Nicole Sierra NP Primary Care Provider [phone] Allergies Active Allergy Reactions Criticality Noted Date [...] 1 tablet (3 mg total) by mouth materials director before breakfast Active aspirin 325 mg tabletIndicati [...] 10/20/2022 Assessment & Plan (07/11/2024 3:34 PM EQUITY RESEARCH ANALYST): -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 as [...] (06/27/2022): Added automatically from request for surgery [id number] A-fib 02/14/2022 Assessment & Plan (10/11/2022 11:47 [...] (07/11/2019): Added automatically from request for surgery [id number] Coronary artery disease invo lving north fork coronary artery of north fork heart without angina pectoris 11/19/2018 Angina pectoris, unstable 11/07/2018 Overview (11/07/2018): Added automatically from request for surgery [id number] GI bleed 08/06/2018 Assessment & Plan (08/29/2020 [...] a associated with type 2 diabetes mellitus ([facility]) 07/21/2015 Overview (09/09/2016): Type 2 diabetes mellitus [...] fibrillation Assessment & Plan (07/11/2024 3:39 PM EQUITY RESEARCH ANALYST): -Persistent AF and bradycardia s/p dual chamber [...] EF 72%, fixed apical defect c/w prior SD. Assessment & Plan (08/28/2020 7:53 PM CDT): - TTE in 09/2018 w/ G3DD. Home metop XL 12.5, losartan 25, lasix 20. - PCI 2018 w/ 1 stent to LAD. MPI stress 05/2020 w/ EF 72%, fixed apical defect c/w prior SD. Essential hypertension 09/13/201910/20 Assessment & Plan (02/16/2022 [...] Department Care Team Description 08/02/2024 Results Follow-Up [facility] Cardiology [address] [facility] [address] [place] [address] Jyotsna Soto NP 08/02/2024 Orders Only [facility] Jyotsna Soto NP 07/31/2024 Telephone [facility] Cardiology [address] [address] [address] [place] [address] Maria Isabel Cesar MD 07/26/2024 10:00 AM EQUITY RESEARCH ANALYST Therapy [facility] Medical Office Bldg 1 OP Physical Therapy [address] [place] [address] [place] [address] Vesna oLpez, PT Dizziness and giddiness (Primary Dx) 07/18/2024 10:15 AM EQUITY RESEARCH ANALYST Therapy [facility] Medical Office Bldg 1 OP Physical Therapy [address] [place] [address] [place] [address] Vesna Lopez, PT Dizziness and giddiness (Primary Dx) 07/18/2024 Telephone [facility] Cardiology [address] [place] [address] 8th [place] [address] [place] [address] Ignacio Obregon MD 07/18/20[address] [facility] Office Bldg 1 OP Physical Therapy [address] [place] [address] [place] [address] 07/11/2024 2:00 PM EQUITY RESEARCH ANALYST Office Visit [facility] Cardiology [address] [place] [address] 8th [place] [address] [place] [address] Jyotsna Soto NP Longstanding persistent atrial fibrillation (HCC) (Primary Dx); S/P placement of cardiac pacemaker; Atrial fibrillation with RVR (HCC) 07/11/2024 1:30 PM EQUITY RESEARCH ANALYST Ancillary Procedure [facility] Cardiology [address] [place] [address] 8th [place] [address] Sinus node dysfunction (HCC); Adjustment and management of cardiac pacemaker 07/04/2024 4:15 PM EQUITY RESEARCH ANALYST Telemedicine [facility] Otolaryngology [address] [place] [phone] Mehul Martinez II, MD Dizziness and giddiness (Primary Dx) 07/04/2024 1:00 PM EQUITY RESEARCH ANALYST Procedure visit [facility] Otolaryngology [address] [place] [phone] Deanna Galvez Dizziness and giddiness (Primary Dx) 07/04/2024 Telephone [facility] Otolaryngology [address] [place] [phone] Brie Vincent LPN Order vestibular rehab 06/20/2024 2:00 PM EQUITY RESEARCH ANALYST Office Visit [facility] Otolaryngology [address] [place] [phone] Mehul Martinez II, MD Sensorineural hearing loss (SNHL) of both ears (Primary Dx); Dizziness and giddiness 06/20/2024 1:45 PM EQUITY RESEARCH ANALYST Procedure visit [facility] Otolaryngology [address] [place] [phone] Deanna Galvez Dizziness and giddiness (Primary Dx); Sensorineural hearing loss (SNHL) of both ears; Tinnitus of both ears 05/13/2024 Orders Only [facility] Cardiology [address] [place] [address] 8th [place] [address] [place] [address] Ignacio Obregon MD from Last 3 Months [...] often do you attend chur ch or anabaptist services? Never 08/29/2022 Do you belong to any clubs o r organizations such as gnosticism groups, unions, fraternal or athletic groups, or [...] place to sleep or slept in a residential (including now)? No 08/29/2022 Personal Safety Answer Date Recorded Have you ever been in or are you currently in a harmful physical or emotional relationship or is someone making you feel afraid or unsafe? Denies 10/10/2022 Comments No Sex and Gender Information Value Date Recorded Sex Assigned at Not on file Legal Sex Female 2:00 AM EQUITY RESEARCH ANALYST Gender Identity Not on file Sexual Orientation Not on file Obstetrics History Last Filed Vital Signs Vital Sign Reading Time Taken Comments Blood Pressure 106/64 04/22/2024 11:37 AM EQUITY RESEARCH ANALYST Pulse 91 07/11/2024 1:22 PM EQUITY RESEARCH ANALYST Temperature 36.7 C (98.1 F) 04/14/2023 8:56 AM EQUITY RESEARCH ANALYST Respiratory Rate 18 06/20/2024 1:50 PM EQUITY RESEARCH ANALYST Oxygen Saturation 95% 07/11/2024 1:22 PM EQUITY RESEARCH ANALYST Inhaled Oxygen Concentration - - Weight 73.3 kg (161 lb 9.6 oz) 07/11/2024 1:22 P M EQUITY RESEARCH ANALYST Height 157.5 cm (5' 2 ) 07/11/2024 1:22 PM EQUITY RESEARCH ANALYST Body Mass Index 29.56 07/11/2024 1:22 PM EQUITY RESEARCH ANALYST Plan of Treatment Health Maintenance Due Date [...] Completed 04/09/2024 Medical Devices Implanted Type Area Va Underwriter Device Identifier Shelf Expiration Date Model / Serial / Lot [employer] [id number] System 6-12fr Mvp Venous Closure Vascade - [id number] Implanted:Qt y: 1 on 08/28/2020 by Crow Gramajo MD at [facility] Collagen Left: Femoral [employer] 06/23/2022 [id number] / / [id number] Description:LFV sheath [employer] [id number] System 6-12fr Mvp Venous Closure Vascade - [id number] Implanted:Qt y: 1 on 08/28/2020 by Crow Gramajo MD at [facility] Collagen Right: Femoral [employer] 06/23/2022 [id number] / / [id number] Description:RFV sheath X 1 [employer] Tendril Sts 6fr 52cm Is-1 Connector Active Fixation Bipolar Soft /52 - [id number] - [id number] Implanted:Qt y: 1 on 10/10/2022 by Ignacio Obregon MD at [facility] Lead Right: Ventricle [employer] 08/02/20252087TC/52 / [id number] / [employer] Tendril Sts 6fr 46cm Is-1 Connector Bipolar Active Fixation /46 - [id number] - [id number] Implanted:Qt y: 1 on 10/10/2022 by Ignacio Obregon MD at [facility] Lead Right: Atria [employer] 08/02/2025 2088TC/46 / [id number] / [employer] Joanne [id number] Device Closure Watchman Pebax Nitinol [employer]gl[employer] Iridium Pet 24mm L75cm Od12 Fr [id number] Fr 3 [address] Stopcock Y Adapter Self Expand Proximal Face Sterile Disposable Left Atrial Appendage - [id number] Implanted:Qt y: 1 on 08/28/2020 by Ignacio Obregon MD at [facility] Other - see comments Left: Heart [employer] Joanne 03/23/2022 [id number] / / [id number] Description:Left atrial appe ndage closure device with delivery system [employer] Assurity Mri [id number] 2 Chamber Is-1 Connector Thk6mm Pacemaker [id number] - [id number] - [id number] Implanted:Qt y: 1 on 10/10/2022 by Ignacio Obregon MD at [facility] Pacemaker Right: Chest Wall [employer] 03/04/2024 [id number] / [id number] / [id number] Medtronic Usa Inc X [id number] Resolute Jerome 3.5mm 2.1-2.7fr 18mm 140cm Rapid Exchange - [id number] Implanted:Qt y: 1 on 11/26/2018 by Ildefonso Barrios MD PhD at [facility] Stent Medtronic Inc 09/05/2020 [id number] / / [id number] [employer] Inc Vascade Mvp 6-12fr Venous Closure [id number] - [id number] - [id number] Implanted:Qt y: 1 on 10/10/2022 by Ignacio Obregon MD at [facility] Vascular Closure Device Right: Femoral Vein [employer] 03/15/2024 [id number] / [id number] / [id number] Lens Bilateral: Eye Device Lizzy Watchman Procedure - [id number] Implanted:Qt y: 1 on 08/28/2020 by Ignacio Obregon MD at [facility] Work Inspire Joanne WMPERPROCDEVICE 1-3 PC / / Procedures Procedure Name Priority Date/Time Associated Diagnosis Comments CARDIOLOGY DOCUMENT SCAN 08/02/2024 11:20 AM EQUITY RESEARCH ANALYST DEVICE CHECK - IN OFFICE Routine 07/11/2024 1:13 PM EQUITY RESEARCH ANALYST Sinus node dysfunction (HCC) Adjustment and management of cardiac pacemaker DEVICE CHECK - REMOTE Routine 05/13/2024 4:00 AM EQUITY RESEARCH ANALYST POCT LIPID PANEL Routine 04/22/2024 11:4 3 AM EQUITY RESEARCH ANALYST Lipid screening EGFR Routine 10/11/2022 4:40 AM CDT HEMOGLOBIN A1C STAT 08/28/2022 3:07 AM CDT from Last 3 Months or Most Recently Relevant to Health Maintenance Results * Cardiology Document Scan (08/02/2024 11:20 AM EQUITY RESEARCH ANALYST) Anatomical Region Laterality Modality Other Jyotsna Soto NP [facility] PROCE DURRAMÓN Final Result * DEVICE CHECK - IN OFFICE (07/11/2024 1:13 PM EQUITY RESEARCH ANALYST) Anatomical Region Laterality Modality Other 07/11/2024 2:00 AM EQUITY RESEARCH ANALYST Narrative 07/12/2024 10:54 AM EQUITY RESEARCH ANALYST Interpretation Summary: Battery and Leads (BL) Normal [...] DEVICE CHECK - REMOTE (05/13/2024 4:00 AM EQUITY RESEARCH ANALYST) Anatomical Region Laterality Modality Other 05/13/2024 4:00 AM EQUITY RESEARCH ANALYST Narrative 05/19/2024 1:20 PM EQUITY RESEARCH ANALYST Interpretation Summary: Battery and Leads (BL) Normal [...] Report Ignacio Obregon MD [facility] Final Result * POCT lipid panel (04/22/2024 11:43 AM EQUITY RESEARCH ANALYST) Cholesterol, POC 119 mg/dL HDL, POC 35 mg/dL Triglycerides, POC 102 mg/dL LDL Cholesterol POC 64 mg/dL Chol/HDL Ratio, POC 1.9 Non-HDL Cholesterol, POC 85 mg/dL Cholesterol Total, POC 119 mg/dL Capillary blood 04/22/2024 1 1:43 AM EQUITY RESEARCH ANALYST us Sindhu Patrick NP POINT OF CARE TEST ORDERA BLES Final Result * (ABNORMAL) eGFR (10/11/2022 4:40 AM CDT) eGFR 41(L) 90 - 130 mL/min/1. 73 m2 [facility] Comment: Interpretive Data Reference Interval Normal [...] MD LAB BLOOD ORDERABLES Final R esult [facility] Department [place] [address] * (ABNORMAL) Hemoglobin A1c (08/28/2022 3:07 AM CDT) Hgb A1C 6.1(H) 4.0 - 5.6 % [facility] Estimated Average Glucose 128 mg/dL [facility] Comment: The ADA recommends reporting an [...] LAB BLOOD ORDERABLES Final Re sult [facility] Department [place] [address] from Last 3 Months or Most Recently Relevant to Health Maintenance Insurance MEDICARE [facility] MEDICARE [facility] MEDICARE [facility] MEDICARE MEDICARE [facility]IC[facility] Advance Directives For more information, please contact: [phone] * Full Code (Latest Code Status on [...] 4:14 AM 11/07/2020 6:56 PM Care Teams Case Preparer And Liner Relationship Specialty Start Date End Date Nicole Sierra NP [address] [place] [address] PCP - General Nurse Practitioner 07/20/23 Pinky Louise MD Consulting Physician Gastroenterology 10/02/18 Mackenzie Tobin NP [address] [place] [address] Nurse Practitioner Medical Oncology 02/09/22 [place] [address] [place] [address] Consulting Physician Urology 08/06/22 [place] [address] [place] [address] Consulting Physician Cardiology 08/06/22
--- OUTSIDE RECORDS SUMMARY | 2024-08-09 04:51 | XMS_ITS | Patient Health Summary ---
Author Organization [facility] Address [address] [place] [address] Care Team Providers Care Certified Prosthetist Name Role Phone Marie Matias MD Unavailable [phone] Note from [facility],non-owned Affiliates and Associated Physician Practices is amultiple site organization consisting of ambulatory clinics and hospital sitesin [place], [place], [place]. This disclosure is being madepursuant to the Care Everywhere program and may not contain all information available regarding this patient. Last updated 18.[facility] [employer] Allergies No known active allergies Medications * [...] 1 Tab by mouth once daily. * [place]-3 Fatty Acids 1200 MG CAPS Take 1 [...] 08/28/2020 09/21/2023 Coronary artery disease invo lving [place] coronary artery of [place] heart without angina pectoris 11/19/2018 09/21/2023 Angina [...] Comments Blood Pressure 126/86 04/09/2024 12:40 PM RN TRANSPLANT Pulse 98 04/09/2024 12:40 PM RN TRANSPLANT Temperature 36.6 C (97.8 F) 08/06/2014 11:36 AM RN TRANSPLANT Respiratory Rate 10 03/07/2022 7:51 AM CDT Oxygen Saturation 97% 04/09/2024 12:40 PM RN TRANSPLANT Inhaled Oxygen Concentration - - Weight 72.7 kg (160 lb 3.2 oz) 04/09/2024 12:40 PM RN TRANSPLANT Height 157.5 cm (5' 2 ) 04/09/2024 12:40 PM RN TRANSPLANT Body Mass Index 29.3 04/09/2024 12:40 PM RN TRANSPLANT Procedures * ALPHA FETOPROTEIN BLOOD TUMOR MARKER(Performed [...] DIFFERENTIAL(Performed 09/19/2023) Performed for Hepatic fibrosis * IN LIVER ELASTOGRAPHY(Performed 09/19/2023) Performed for Hepatic fibrosis [...] + MICRO EXAM(Performed 04/20/2010) Results * PT-INR [facility] (04/09/2024 2:07 PM RN TRANSPLANT) Only the most recent of2 resultswithin the time period is included. PT 14.6 12.1 - 14.8 Seconds 04/09/2024 3:29 PM RN TRANSPLANT [facility] INR 1.2 See Comment 04/09/2024 3:29 PM RN TRANSPLANT [facility] Comment:The suggested therap eutic range for standard coumadin (warfarin) therapy is an INR of 2.0-3.0. For high-risk patients (Mechanical Mitral Valve Prosthesis, etc.), the suggested prophylactic therapeutic range is an INR of 2.5-3.5. Blood BLOOD SPECIMEN / Unknown Lab Venipuncture / Unknown 04/09/2024 2:07 PM RN TRANSPLANT 04/09/2024 2:54 PM RN TRANSPLANT Lazaro Gonzales MD LAB - COAGULATION OR DERABLES [facility] [address] [place] [address] [phone] * ALPHA FETOPROTEIN BLOOD TUMOR MARKER (04/09/2024 2:07 PM RN TRANSPLANT) Only the most recent of2 resultswithin the time period is included. [facility] Alpha-Fetoprote in Tumor Marker 3.3 <=8.3 ng/mL 04/09/2024 3:51 PM [facility] Comment: AFP values will vary depending on testing procedure used. Results are not comparable across different methods. AFP values obtained by [facility] using an Rivas Alinity Immunoassay. Blood BLOOD SPECIMEN / Unknown Lab Venipuncture / Unknown 04/09/2024 2:07 PM RN TRANSPLANT 04/09/2024 3:00 PM RN TRANSPLANT Lazaro Gonzales MD LAB - CHEMISTRY DEBBI KHAN [facility] [address] [place] [address], [facility] [phone] * (ABNORMAL) CBC WITH DIFFERENTIAL (04/09/2024 2:07 PM RN TRANSPLANT) Only the most recent of5 resultswithin the time period is included. [facility] WBC 9.2 4.0 - 10.7 x10E9/L 04/09/2024 [...] Lab Venipuncture / Unknown 04/09/2024 2:07 PM RN TRANSPLANT 04/09/2024 3:00 PM [facility] Lazaro Gonzales MD LAB - HEMATOLOGY ORD ERABLES [facility] [address] [place] [address] [phone] * (ABNORMAL) COMPREHENSIVE METABOLIC PANEL (04/09/2024 2:07 PM [facility]) Only the most recent of6 resultswithin [...] 275 - 295 mOsm/kg 04/09/2024 3:33 PM RN TRANSPLANT [facility] Albumin/Globulin Ratio 0.8(L) 1.1 - 2.3 04/09/2024 3:33 PM RN TRANSPLANT [facility] eGFR by CKD-EPI 41(L) >=90 mL/min/1.7 3 m2 04/09/2024 3:33 PM RN TRANSPLANT [facility] Blood BLOOD SPECIMEN / Unknown Lab Venipuncture / Unknown 04/09/2024 2:07 PM RN TRANSPLANT 04/09/2024 3:00 PM RN TRANSPLANT Lazaro Gonzales MD LAB - CHEMISTRY DEBBI KHAN Performing Organization Address City/[facility]/ZIP Co de Phone Number [address] [address], [facility] [phone] * BILIRUBIN DIRECT (04/09/2024 2:07 PM RN TRANSPLANT) Bilirubin Conjugated 0.2 0.1 - 0.5 mg/dL 04/09/2024 3:33 PM RN TRANSPLANT [facility] Blood BLOOD SPECIMEN / Unknown Lab Venipuncture / Unknown 04/09/2024 2:07 PM RN TRANSPLANT 04/09/2024 3:00 PM RN TRANSPLANT Lazaro Gonzales MD LAB - CHEMISTRY DEBBI KHAN Performing Organization Address City/[facility]/ZIP Co de Phone Number [address] [address], [place] [phone] * US ABDOMEN LIMITED (04/09/2024 11:00 AM RN TRANSPLANT) Anatomical Region Laterality Modality Abdomen Ultrasound 04/09/2024 11:3 6 AM RN TRANSPLANT Impressions 04/09/2024 2:42 PM RN TRANSPLANT IMPRESSION: Liver Visualization Score A: No or minimal limitations. US-1 Negative. Repeat surveillance US in 6 months. Patent hepatic vasculature. 1.Hepatic cirrhosis without discrete hepatic observation. Report drafted by Raza Jackson MD IOliver MD have personally reviewed and interpreted this examination/study. > Interpreting Provider: Oliver Rosas MD on 04/09/2024 2:42 PM Narrative 04/09/2024 2:42 PM RN TRANSPLANT PROCEDURE: US ABDOMEN LIMITED, DATE/TIME OF EXAM: 04/09/2024 11:03 AM, LOCATION [facility] INDICATION: K74.69: Other cirrhosis of liver (HCC) [...] DATE/TIME OF EXAM: 04/09/2024 11:03 AM, LOCATION [facility] INDICATION: K74.69: Other cirrhosis of liver (HCC) [...] of2 resultswithin the time period is included. [facility] WBC 9.8 4.0 - 10.7 x10E9/L 09/19/2023 4:07 PM T [facility] RBC Count 4.76 3.90 - 5.20 x10E12/L 09/19/2023 4:07 PM T [facility] Hemoglobin 13.6 11.9 - 15.8 g/dL 09/19/2023 4:07 PM T [facility] Hematocrit 41.1 34.8 - 46.1 % 09/19/2023 4:07 PM T [facility] MCV 86.3 80.0 - 98.0 fL 09/19/2023 4:07 PM T [facility] MCH 28.6 26.7 - 33.6 pg 09/19/2023 4:07 PM T [facility] MCHC 33.1 31.7 - 36.3 g/dL 09/19/2023 4:07 PM T [facility] RDW-CV 12.6 11.3 - 14.8 % 09/19/2023 4:07 PM [facility] Platelet Count 127(L) 150 - 420 x10E9/L 09/19/2023 4:07 PM T [facility] MPV 12.7(H) 7.8 - 11.4 fL 09/19/2023 4:07 PM [facility] Blood BLOOD SPECIMEN / Unknown Lab Venipuncture / Unknown 09/19/2023 3:44 PM CDT 09/19/2023 4:01 PM CDT Lazaro Gonzales MD LAB - HEMATOLOGY ORD ERABLES [facility] [address] [place] [address], [facility] [phone] * HEPATITIS B SURFACE ANTIBODY (09/19/2023 3:44 PM CDT) [facility] Hepatitis B Virus Surface Antibody Non-react ruel Non-react ruel 09/19/2023 5:23 PM CDT [facility] Comment: < 8 mIU/mL Hepatitis B surface Antibody (HBsAb). Nonreactive for HBsAb - individual is considered not immune to Hepatitis B Virus infection. Hepatitis B Surface Antibody Quantitative 0.0 <8.0 mIU/mL 09/19/2023 5:23 PM CDT [facility] Comment: Hepatitis B Surface Antibody Numeric Result Interpretation: Nonreactive: <8.0 mIU/mL Indeterminate: 8.0 - 12.0 mIU/mL Reactive: >12.0 mIU/mL Blood BLOOD SPECIMEN / Unknown Lab Venipuncture / Unknown 09/19/2023 3:44 PM CDT 09/19/2023 3:58 PM CDT Lazaro Gonzales MD LAB - CHEMISTRY DEBBI KHAN Performing Organization Address City/[facility]/ZIP Co de Phone Number [address] [address], [facility] [phone] * HEPATITIS B CORE ANTIBODY TOTAL (09/19/2023 3:44 PM CDT) HBc Antibody Total Non-reacti ve Non-reacti ve 09/19/2023 5:23 PM CDT [facility] Blood BLOOD SPECIMEN / Unknown Lab Venipuncture / Unknown 09/19/2023 3:44 PM CDT 09/19/2023 3:58 PM CDT Lazaro Gonzales MD LAB - CHEMISTRY DEBBI KHAN [address] [address], [place] [phone] * HEPATITIS B SURFACE ANTIGEN W RFLX CONFIRMATION (09/19/2023 3:44 PM CDT) Hepatitis B Virus Surface Antigen Non-reacti ve Non-reacti ve 09/19/2023 5:23 PM CDT [facility] Blood BLOOD SPECIMEN / Unknown Lab Venipuncture / Unknown 09/19/2023 3:44 PM CDT 09/19/2023 3:58 PM CDT Lazaro Gonzales MD LAB - CHEMISTRY DEBBI KHAN Performing Organization Address [facility]/ZIP Co de Phone Number [address] [address], [place] [phone] * IRON + TRANSFERRIN PANEL (09/19/2023 3:44 PM CDT) [facility] Iron 77 40 - 150 ug/dL 09/19/2023 5:05 PM CDT [facility] Transferrin 218 174 - 382 mg/dL 09/19/2023 5:05 PM CDT [facility] Transferrin Saturation % 28 16 - 50 % 09/19/2023 5:05 PM CDT [facility] TIBC Calculated 273 240 - 450 ug/dL 09/19/2023 5:05 PM CDT [facility] Blood BLOOD SPECIMEN / Unknown Lab Venipuncture / Unknown 09/19/2023 3:44 PM CDT 09/19/2023 3:58 PM CDT Lazaro Gonzales MD LAB - CHEMISTRY DEBBI KHAN Performing Organization Address [facility] Co de Phone Number [address] [address], [place] [phone] * HEPATITIS C ANTIBODY (09/19/2023 3:44 PM CDT) [facility] Hepatitis C Antibody Non-react ruel Non-reac tive 09/19/2023 5:23 PM CDT [facility] Comment:Hepatitis C Antibody screen indicates no [...] - CHEMISTRY DEBBI KHAN Performing Organization Address [facility]/ZIP Co de Phone Number [facility] [address] [place] [address], [place] [phone] * (ABNORMAL) HEPATITIS A ANTIBODY (09/19/2023 3:44 PM CDT) [facility] Hepatitis A Virus Antibody Total Positive( A) Negative 09/21/2023 6:10 PM CDT [employer] [facility]) Comment: The positive anti-HAV is consistent with recent or remote Hepatitis A infection or antibody response to HAV vaccination. False positive anti-HAV can occur. Performed By: [employer] [address] [place] [address] Diploma Maker: Buddy King MD, PhD CLIA Number: [id number] Blood BLOOD SPECIMEN / Unknown Lab Venipuncture / Unknown 09/19/2023 3:44 PM CDT 09/19/2023 3:58 PM CDT Lazaro Gonzales MD LAB - CHEMISTRY DEBBI KHAN Performing Organization Address [facility] Co de Phone Number [facility]) [address] [place] [phone] [place] [address] * (ABNORMAL) FERRITIN (09/19/2023 3:44 PM CDT) [facility] Ferritin 660(H) 13 - 204 ng/mL 09/19/2023 5:23 PM CDT [facility] Blood BLOOD SPECIMEN / Unknown Lab Venipuncture / Unknown 09/19/2023 3:44 PM CDT 09/19/2023 3:58 PM CDT Lazaro Gonzales MD LAB - CHEMISTRY DEBBI KHAN Performing Organization Address [facility]/ZIP Co de Phone Number [facility] [address] [place] [address], [place] [phone] * IN LIVER ELASTOGRAPHY (09/19/2023 2:21 PM CDT) Narrative [...] patients with nonalcoholic fatty liver disease. Gastroenterology 2019;156:7141-9749. Brittani MS, Mackenzie R, Ta GUDINO, et [...] at-risk nonalcoholic steatohepatitis (PIMENTEL) in a [place] cohort and comparison to other non-invasive algorithms. PLoS ONE (2021) 17: p6119061. Mamie AJ, Lee J, Kareen ZM, et al. Enhanced diagnosis of advanced fibrosis and cirrhosis in individuals with NAFLD using FibroScan-based Agile scores. J Hepatol (2022) 78: 247-259. Fibroscan LSM can also be used with laboratory parameters without formulas to assess prognosis. According to the Baveno-VII criteria (Lockwood, 202), Fibroscan LSM ?15 kPa plus a platelet count of ?739a802/L rules out clinically significant portal hypertension (sensitivity [...] FIB-4 score (Ayline et al. Hepatology Communications 2019;3:3871-5467) or NAFLD Fibrosis score (Handy et al. Clinical Gastroenterology and Hepatology 2019;17:7516-8283 using routine clinical data. Note: 1. Fibroscan [...] additional interpretive data was last updated 10/08/22.) [email or web address] Lazaro Gonzales MD PROCEDURE/MINOR SURG ICAL ORDERABLES * DERMATOPATHOLOGY (01/03/2023 11:11 AM CDT) Only the most recent of5 resultswithin the time period is included. Case Report Dermatopathology Report Case: [id number] Authorizing Provider: Jyotsna Tineo DO Collected: 01/03/2023 11:11 AM Ordering Location: [facility] DermPath Lab Received: 01/03/2023 03:19 PM [...] of a non-oriented ellipse of skin measuring 95q71l7 mm. The epidermal surface is unremarkable. The [...] characteristic determined by the Dermatopathology Laboratory at [facility], directed by Dr. Blair Garcia. These tests need not be, and therefore are not, approved by the [place] Food and Drug Administration. The tests are used for clinical purposes. Billing Codes Specimen Charges Stain Charges 50982 1 3 5:22 PM CDT [facility] LABOR[facility]ORY Embedded Images 3 5:22 PM CDT DERMATOPATHOLOGY LABORATORY Pathology/Cytolo gy TISSUE SPECIMEN FROM SKIN / Unknown 01/03/2023 11:11 AM CDT 01/03/2023 3:19 PM CDT Jyotsna Tineo DO LAB - PATHOLOGY/C YTOLOGY ORDERABLES DERMATOPATHOLOGY LABORATORY [facility] - Department of Dermatology [address] [phone] * (ABNORMAL) HEMOGLOBIN A1C (03/30/2015 12:13 PM CDT) Only the most recent of5 resultswithin the time period is included. Hemoglobin A1c 7.4(H) 4.2 - 5.8 % 03/30/2015 10:32 PM CDT [facility] Estimated Average Glucose 166 mg/dL 03/30/2015 10:32 PM CDT [facility] Whole Blood BLOOD SPECIMEN WITH EDTA / Unknown Venipuncture / Unknown 03/30/2015 12:13 PM CDT 03/30/2015 12:21 PM CDT Narrative [facility] - 03/30/2015 10:32 PM CDT [place] [employer] recommended the following cutoff levels: [...] - CHEM ISTRY ORDERABLES Performing Organization Address City/State/[facility] Co de Phone Number [facility] [address] * (ABNORMAL) BASIC METABOLIC PANEL (CALCIUM TOTAL) (03/30/2015 12:13 PM CDT) Only the most recent of5 resultswithin the time period is included. [facility] Glucose 151(H) 70 - 125 mg/dL 03/30/2015 [...] >60 mL/min/1.7 3m2 03/30/2015 12:47 PM CDT [facility] eGFR by MDRD >60 >60 mL/min/1.7 3m2 03/30/2015 12:47 PM CDT [facility] Blood BLOOD SPECIMEN / Unknown Venipuncture / Unknown 03/30/2015 12:13 PM CDT 03/30/2015 12:21 PM CDT Ordering Provider Unlisted MD LAB - CHEM ISTRY ORDERABLES [facility] [address] * ALT (03/30/2015 12:13 PM CDT) Only the most recent of5 resultswithin the time period is included. Pathologist [facility] ALT 30 5 - 55 U/L 03/30/2015 12:47 PM CDT [facility] Blood BLOOD SPECIMEN / Unknown Venipuncture / Unknown 03/30/2015 12:13 PM CDT 03/30/2015 12:21 PM CDT Ordering Provider Unlisted MD LAB - CHEM ISTRY ORDERABLES Performing Organization Address City/[facility] de Phone Number [facility] [address] * (ABNORMAL) LIPID PROFILE (03/30/2015 12:13 PM CDT) Only the most recent of3 resultswithin the time period is included. Cholesterol 146 <200 mg/dL 03/30/2015 12:46 PM CDT [facility] Triglycerides 150(H) <150 mg/dL 03/30/2015 12:46 PM CDT [facility] HDL Cholesterol 34(L) >40 mg/dL 03/30/2015 12:46 PM CDT [facility] Chol HDL Ratio 4.3 1.0 - 6.0 03/30/2015 12:46 PM CDT [facility] LDL Calculated 82 65 - 130 mg/dL 03/30/2015 12:46 PM CDT AM LABORATORY VLDL Calculated 30 10 - 40 mg/dL 03/30/2015 12:46 PM CDT [facility] Blood BLOOD SPECIMEN / Unknown Venipuncture / Unknown 03/30/2015 12:13 PM CDT 03/30/2015 12:21 PM CDT [facility] - 03/30/2015 12:46 PM CDT Lipid [...] - CHEM ISTRY ORDERABLES [facility] [address] [place] [address], [place] * CARDIAC RHYTHM STRIP ORDER (08/12/2014 10:27 AM CDT) Narrative 08/12/2014 10:27 AM CDT Ordered by an unspecified provider. Scanned Document CARDIAC SERVICES ORD ERABLES * (ABNORMAL) GLUCOSE - POINT OF CARE (08/06/2014 11:32 AM RN TRANSPLANT) Only the most recent of6 resultswithin the time period is included. Glucose WB/POC 251(H) 70 - 125 mg/dL 08/06/2014 1:41 PM RN TRANSPLANT [facility] Blood BLOOD SPECIMEN / Unknown 08/06/2014 11:32 AM RN TRANSPLANT 08/06/2014 1:41 PM RN TRANSPLANT Narrative [facility] - 08/06/2014 1:41 PM RN TRANSPLANT NOTIFIED CAREGIVER Francisca العراقي MD LAB - POINT OF CA RE ORDERABLES [facility] [address] * NM MYOCARD PERFUSION SPECT STRESS AND REST (08/06/2014 11:24 AM RN TRANSPLANT) Anatomical Region Laterality Modality Chest Nuclear Medicine 08/06/2014 3:37 PM RN TRANSPLANT Impressions 08/06/2014 6:21 PM RN TRANSPLANT Mild myocardial ischemia felt to be present at the anterior wall and apex. No areas of myocardial infarction or additional areas of myocardial ischemia. Calculated LVEF of 82%. Phone call made to Luh Mccord informing her of preliminary report available in [facility] at hours on 08/06/2014. Narrative 08/06/2014 6:21 PM RN TRANSPLANT GATED STRESS/REST SPECT MYOCARDIAL PERFUSION SCAN WITH [...] informing her of preliminary report available in [employer] at hours on 08/06/2014. Francisca العراقي MD NM ORDERABLES * US BREAST LEFT LTD (08/06/2014 8:00 AM RN TRANSPLANT) Anatomical Region Laterality Modality Breast Left Ultrasound 08/06/2014 9:33 AM RN TRANSPLANT Impressions 08/07/2014 5:09 PM RN TRANSPLANT Hypoechoic lesion at lower-outer quadrant of left breast with internal echoes and some posterior acoustical enhancement with etiology uncertain. Comparison with known outside studies necessary as discussed above. BI-RADS Category 0. Report faxed to the office of Dr. Dk Kong at 12:10 p.m. on 08/07/2014. Call subsequently made to Renate Jin to confirm receipt of report. Narrative 08/07/2014 5:09 PM RN TRANSPLANT LEFT BREAST SONOGRAPHY: (08/06/2014) HISTORY: History of breast cancer with postoperative change noted in left breast at 08/04/2014 CT angiography of chest. 3.7 x 3.3 cm thick-walled hypodense collection in lower-outer quadrant of left breast was noted at CT study. Followup imaging. FINDINGS: No other comparison studies available at this time. Patient has prior mammography and sonography studies of breasts in [place], [place] according to information provided by patient. [...] states she is due for mammogram in [place], [place] and plans to take study with [...] mammography and sonography studies of breasts in [place], [place] according to information provided by patient. [...] states she is due for mammogram in [place], [place] and plans to take study with [...] ORDERABLES * (ABNORMAL) PT-INR (08/06/2014 6:07 AM RN TRANSPLANT) Only the most recent of8 resultswithin the time period is included. PT 20.1(H) 9.6 - 11.5 sec 08/06/2014 6:36 AM RN TRANSPLANT [facility] INR 1.92(L) 2 - 3 08/06/2014 6:36 AM RN TRANSPLANT [facility] Blood BLOOD SPECIMEN / Unknown Lab Venipuncture / Unknown 08/06/2014 6:07 AM RN TRANSPLANT 08/06/2014 6:12 AM RN TRANSPLANT Narrative [facility] - 08/06/2014 6:36 AM RN TRANSPLANT Recommended therapeutic INR ranges for Oral Anticoagulant Therapy: 2.0-3.0 For prevention of Thrombosis or Embolism and treatment of Venous Thrombosis. 2.5- 3.5 for prevention of Recurrent Embolism or treatment of patients with Mechanical Prosthetic Heart Valves. Arley Ng MD LAB - COAGULATION OR DERABLES [facility] [address] [place] [address], [facility] * PHOSPHORUS BLOOD (08/06/2014 6:07 AM RN TRANSPLANT) Phosphorus 3.82 2.3 - 4.7 mg/dL 08/06/2014 7:08 AM RN TRANSPLANT [facility] Blood BLOOD SPECIMEN / Unknown Lab Venipuncture / Unknown 08/06/2014 6:07 AM RN TRANSPLANT 08/06/2014 6:13 AM RN TRANSPLANT Francisca العراقي MD LAB - CHEMISTRY O RDERABLES Performing Organization Address [facility]/ZIP Co de Phone Number [facility] [address] * (ABNORMAL) MAGNESIUM BLOOD (08/06/2014 6:07 AM RN TRANSPLANT) Magnesium 1.4(L) 1.6 - 2.6 mg/dL 08/06/2014 7:08 AM RN TRANSPLANT [facility] Blood BLOOD SPECIMEN / Unknown Lab Venipuncture / Unknown 08/06/2014 6:07 AM RN TRANSPLANT 08/06/2014 6:13 AM RN TRANSPLANT Francisca العراقي MD LAB - CHEMISTRY O YOLYERAAUTUMN Performing Organization Address [facility] Co de Phone Number [facility] [address] * TROPONIN I (08/05/2014 5:53 AM RN TRANSPLANT) Only the most recent of6 resultswithin the time period is included. Troponin I <0.012 <=0.049 ng/mL 08/05/2014 7:44 AM RN TRANSPLANT [facility] Blood BLOOD SPECIMEN / Unknown Lab Venipuncture / Unknown 08/05/2014 5:53 AM RN TRANSPLANT 08/05/2014 6:56 AM RN TRANSPLANT Narrative [facility] - 08/05/2014 7:44 AM RN TRANSPLANT Note: Diagnosis of myocardial infarction requires symptoms [...] - CHEMISTRY DEBBI KHAN Performing Organization Address [facility] Co de Phone Number [facility] [address] * LIPASE BLOOD (08/05/2014 5:53 AM RN TRANSPLANT) Lipase 9 8 - 78 U/L 08/05/2014 7:37 AM RN TRANSPLANT [facility] Blood BLOOD SPECIMEN / Unknown Lab Venipuncture / Unknown 08/05/2014 5:53 AM RN TRANSPLANT 08/05/2014 6:56 AM RN TRANSPLANT Arley Ng MD LAB - CHEMISTRY DEBBI KHAN Performing Organization Address City/[facility] Co de Phone Number [facility] [address] * TSH (08/05/2014 5:53 AM RN TRANSPLANT) Pathologist [facility] TSH 1.0360 0.35 - 4.94 uIU/mL 08/05/2014 8:07 AM RN TRANSPLANT [facility] Blood BLOOD SPECIMEN / Unknown Lab Venipuncture / Unknown 08/05/2014 5:53 AM RN TRANSPLANT 08/05/2014 6:56 AM RN TRANSPLANT Arley Ng MD LAB - CHEMISTRY DEBBI KHAN Performing Organization Address [facility] de Phone Number [facility] [address] * EKG 12-LEAD (08/05/2014 12:48 AM RN TRANSPLANT) Only the most recent of5 resultswithin the time period is included. Ventricular Rate 69 BPM [facility] Atrial Rate 69 BPM [facility] P-R Interval 170 ms [facility] QRS Duration ms 78 ms [facility] Q-T Interval ms 446 ms [facility] QTC Calculation (Bezet) 477 ms [facility] Calculated P [place] 53 degrees [facility] Calculated R [place] -25 degrees [facility] Calculated [place] 9 degrees [facility] MUSE Interpretation EKG Normal sinus rhythm Possible Inferior infarct , age undetermined Nonspecific T wave abnormality Anterolateral leads Abnormal ECG When compared with ECG of 04-AUG-2014 19:14, (Unconfirmed) Nonspecific T wave abnormality, worse in Anterolateral leads Confirmed by Sergio LAI, Cralos ([id number]) on 08/06/2014 3:22:34 PM [facility] MUSE 08/05/2014 12:4 8 AM RN TRANSPLANT 08/06/2014 3:22 PM RN TRANSPLANT Arley Ng MD ECG ORDERABLES [facility] * URINALYSIS ROUTINE W/REFLEX TO CULTURE (08/05/2014 12:11 AM RN TRANSPLANT) Color UA Yellow 08/05/2014 12:25 AM [facility] Clarity UA Clear 08/05/2014 12:25 AM [facility] Glucose UA Negative Negative 08/05/2014 12:25 AM [facility] Bilirubin UA Negative Negative 08/05/2014 12:25 AM [facility] Ketone UA Negative Negative 08/05/2014 12:25 AM [facility] Specific [place] UA 1.010 1.005 - 1.030 08/05/2014 12:25 AM [facility] pH UA 5.5 5.0 - 8.0 pH 08/05/2014 12:25 AM [facility] Protein UA Negative Negative 08/05/2014 12:25 AM [facility] Urobilinogen UA 0.2 0.2 - 1.0 EU/dL 08/05/2014 12:25 AM [facility] Nitrite UA Negative Negative 08/05/2014 12:25 AM [facility] Blood UA Negative Negative 08/05/2014 12:25 AM [facility] Leukocyte UA Negative Negative 08/05/2014 12:25 AM [facility] Urine Microscopy Urine microscopy not indicated 08/05/2014 12:25 AM [facility] Reflex Status Culture not indicated 08/05/2014 12:25 AM [facility] Urine URINE SPECIMEN OBTAINED BY CLEAN CATCH PROCEDURE / Unknown 08/05/2014 12:11 AM RN TRANSPLANT 08/05/2014 12:19 AM RN TRANSPLANT Arley Ng MD LAB - URINALYSIS ORD ERABLES [facility] [address] [place] [address], [facility] * ECHOCARDIOGRAM 2D WITH DOPPLER (08/05/2014 12:00 AM RN TRANSPLANT) 08/05/2014 Narrative [facility] - 08/05/2014 8:[address] [facility] [address] [place] [address] Transthoracic Echocardiogram 2D, M-mode, Doppler, and Color Doppler Patient: JACKIE LANDIN MR #: [id number] : 1945 Age: 69 years Gender: Female Study date: 05-Aug-2014 Status: Outpatient Room: [address] [place] [id number] HR: 70 bpm Height: 62 in Weight: 197.6 lb BSA: 1.9 m BP: 125/ 58 Ordering Physician: [facility] Hospitalist Referring Physician: Unlisted Fun House Attendant: [facility] Fun House Attendant: Carlos Hill MD Sound Effects Person: Alejandra Negron RDCS Summary: - Left ventricle: [...] - 08/05/2014 [facility] [address] [place] [address] Transthoracic Echocardiogram 2D, M-mode, Doppler, and Color Doppler Patient: JACKIE LANDIN MR #: [id number] : 1945 Age: 69 years Gender: Female Study date: 05-Aug-2014 Status: Outpatient Room: [address] [place] [id number] HR: 70 bpm Height: 62 in Weight: 197.6 lb BSA: 1.9 m BP: 125/ 58 Ordering Physician: [facility] Hospitalist Referring Physician: Unlisted Fun House Attendant: [facility] Fun House Attendant: Carlos Hill MD Sound Effects Person: Alejandra Negron RDCS Summary: - Left ventricle: [...] generated for this procedure were personally reviewedby wy. Prepared and Electronically Authenticated Carlos Hill MD 05-Aug-2014 20:07:43 Francisca العراقي MD ECHO ORDERABLES [facility] * CT ANGIO CHEST WITH OR WO CONTRAST [id number] (08/04/2014 7:30 PM RN TRANSPLANT) Anatomical Region Laterality Modality Chest Computed Tomogra phy 08/04/2014 8:06 PM RN TRANSPLANT Impressions 08/04/2014 9:07 PM RN TRANSPLANT 1. No evidence of pulmonary embolism or [...] study. Call made to Jackie Rudd, community aide in the Emergency Department, who confirmed report available for review in [facility] at 2023 hours on 08/04/2014 with information given to provider. Narrative 08/04/2014 9:[address] ANGIOGRAPHY CHEST WITH INTRAVENOUS CONTRAST MATERIAL [...] study. Call made to Jackie Rudd, community aide in the Emergency Department, who confirmed report available for review in [facility] at 2023 hours on 08/04/2014 with information given to provider. Chato Stoll MD CT ORDERABLES * XR CHEST 1VW PORTABLE (08/04/2014 5:37 PM RN TRANSPLANT) Only the most recent of2 resultswithin the time period is included. Anatomical Region Laterality Modality Chest Radiographic Gabriela ging 08/04/2014 6:00 PM RN TRANSPLANT Impressions 08/04/2014 9:07 PM RN TRANSPLANT 1. No gross acute cardiopulmonary disease. Chest appearance similar to 01/21/2014. 2. Mild cardiomegaly. Mild atherosclerotic aorta. No CHF. 3. No consolidation or large pleural effusion. No apparent pneumothorax. Old granulomatous disease. Narrative 08/04/2014 9:07 PM RN TRANSPLANT PORTABLE CHEST RADIOGRAPH 08/04/2014: HISTORY: Shortness of [...] RDERABLES * LDL CHOLESTEROL (07/03/2014 12:39 PM RN TRANSPLANT) Only the most recent of3 resultswithin the time period is included. LDL Direct 106 0 - 129 mg/dL 07/04/2014 11:50 AM RN TRANSPLANT [facility] [employer] ([facility]) Comment: INTERPRETIVE INFORMATION: LDL Cholesterol, Direct CHD [...] reference intervals for this test in the [facility] Laboratory Test Directory ([employer]). Blood specimen (specimen) BLOOD SPECIMEN / Unknown Venipuncture / Unknown 07/03/2014 12:39 PM RN TRANSPLANT 07/03/2014 12:54 PM RN TRANSPLANT Dk Kong MD LAB - CHEMISTRY ORDParveen KHAN [facility] ([facility]) [address] [place], [place] [id number] [place] [address] * MICROALBUMIN URINE RANDOM (03/12/2014 11:04 AM CDT) Only the most recent of2 resultswithin the time period is included. Microalbumin Urine 20.0 0.0 - 20.0 mg/dL 03/12/2014 12:50 PM CDT [facility] Urine URINE / Unknown Venipuncture / Unknown 03/12/2014 11:04 AM CDT 03/12/2014 11:16 AM CDT Dk Kong MD LAB - URINE CHEMISTR Y ORDERABLES Performing Organization Address City/[facility] Co de Phone Number [facility] [address] * (ABNORMAL) PT PTT PANEL (01/21/2014 8:31 PM CDT) PT 20.3(H) 9.6 - 11.5 sec 01/21/2014 9:07 PM CDT [facility] INR 1.91(L) 2 - 3 01/21/2014 9:07 PM CDT [facility] PTT 31.5 24.0 - 32.0 sec 01/21/2014 9:07 PM CDT [facility] Blood BLOOD SPECIMEN / Unknown 01/21/2014 [...] Medina DO LAB - COAGULATION OR DERABLES [facility] [address] * (ABNORMAL) B-TYPE NATRIURETIC PEPTIDE (01/21/2014 8:31 PM CDT) BNP 134(H) 10 - 100 pg/mL 01/21/2014 9:26 PM CDT [facility] Blood BLOOD SPECIMEN / Unknown 01/21/2014 8:31 PM CDT 01/21/2014 8:45 PM CDT Narrative Authorizing Provider Result Lexy Medina DO LAB - CHEMISTRY ORDE RABLES Performing Organization Address [facility] Co de Phone Number [facility] [address] * MRI BREAST W/WO CONTRAST BILAT (11/10/2011 11:20 AM CDT) Anatomical Region Laterality Modality Breast Bilateral Magnetic Resonan ce 11/10/2011 2:06 PM CDT Narrative 11/10/2011 3:45 PM CDT MRI BILATERAL BREASTS WITH AND WITHOUT CONTRAST COMPUTER ANALYSIS WITH InotremD ON INDEPENDENT WORKSTATION INDICATION: Biopsy proven left breast 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 TECHNIQUE: Precontrast T1 and T2 weighted images with sequential contrast enhanced T1 weighted images of the breast. Standard MIPS were also obtained. 20 mL of Omniscan was injected intravenously. Analysis was performed with InotremD on independent workstation FINDINGS: Right breast: No [...] WITH AND WITHOUT CONTRAST COMPUTER ANALYSIS WITH ZazumACAD ON INDEPENDENT WORKSTATION INDICATION: Biopsy proven left breast 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 TECHNIQUE: Precontrast T1 and T2 weighted images with sequential contrast enhanced T1 weighted images of the breast. Standard MIPS were also obtained. 20 mL of Omniscan was injected intravenously. Analysis was performed with ZazumACAD on independent workstation FINDINGS: Right breast: No [...] BUN POCT 14 7 - 17 mg/dL [facility] Creatinine POCT 0.7 0.7 - 1.2 mg/dL [facility] QC Verified yes Yes [facility] POC T TESTING Blood specimen (specimen) BLOOD SPECIMEN / Unknown 11/10/2011 10:13 AM CDT Dayanna Olsen DO LAB - POINT OF CARE ORDERABLES [facility] [id number] [id number] * GROSS + MICRO EXAM (04/20/2010 8:00 AM RN TRANSPLANT) Result CASE NUMBER [id number] Comment: ORDERING [...] similar to that seen in the mass. Supervisor [employer] Testing portions are submitted for decalcification in A1. [...] material is being sent to [facility] in consultation. Read by KITTY DAUGHERTY M.D. DIAGNOSIS SOFT TISSUES RIGHT MIDDLE FINGER BIOPSY - BENIGN-APPEARING CARTILAGINOUS LESION, SUGGESTIVE OF SOFT TISSUE CHONDROMA. *Comment The material was sent to [facility] in consultation. Please see the [facility] report and letter signed by Surjit Diaz M.D. RELEASED BY KITTY DAUGHERTY MD MISCELLANEOUS SAMPLES / Unknown 04/20/2010 8:00 AM RN TRANSPLANT 04/20/2010 10:58 AM RN TRANSPLANT Historical Provider LAB - PATHOLOGY/C YTOLOGY ORDERABLES Care Teams Certified Prosthetist Relationship Specialty Start Date End Date Marie Matias MD [address] [place] [address] Internal Medicine 11/23/21
--- OUTSIDE RECORDS SUMMARY | 2024-08-09 04:51 | XMS_ITS | Clinical Summary ---
Author Organization [facility] [employer] Address [address] [place] [address] Care Team Providers Care Dovetail Machine Operator Name Role Phone Marie Matias MD Unavailable [phone] Source Comments [facility] [employer],non-owned Affiliates and Associated Physician Practices is amultiple site organization consisting of ambulatory clinics and hospital sitesin [place], [place], [place] and [place]. This disclosure is being madepursuant to the Care Everywhere program and may not contain all information available regarding this patient. Last updated 18.[facility] [employer] Allergies No known active allergies Medications [...] 1 Tab by mouth once daily. Active [place]-3 Fatty Acids 1200 MG CAPS Take 1 [...] rybelsus -SSI Coronary artery disease invo lving [place] coronary artery of [place] heart without angina pectoris 11/19/2018 09/21/2023 Angina pectoris, unstable 11/07/20182023 Overview (09/21/2023): Added automatically from request for surgery [id number] H/O TIA (transient ischemic attack) and stroke [...] Travel 07/26/2024 Telephone [facility] - [address] [phone] Sammie Pereira, RN Appointment from Last 3 [...] Comments Blood Pressure 126/86 04/09/2024 12:40 PM COAT PRESSER Pulse 98 04/09/2024 12:40 PM COAT PRESSER Temperature 36.6 C (97.8 F) 08/06/2014 11:36 AM COAT PRESSER Respiratory Rate 10 03/07/2022 7:51 AM CDT Oxygen Saturation 97% 04/09/2024 12:40 PM COAT PRESSER Inhaled Oxygen Concentration - - Weight 72.7 kg (160 lb 3.2 oz) 04/09/2024 12:40 PM COAT PRESSER Height 157.5 cm (5' 2 ) 04/09/2024 12:40 PM COAT PRESSER Body Mass Index 29.3 04/09/2024 12:40 PM COAT PRESSER Plan of Treatment Upcoming Encounters Date Type Department Care Team (Late st Contact Info) Description 12/05/2024 11:[address] [facility] [address] [place] [address] Lazaro Gonzales MD [address] [place] [phone] 12/05/2024 1:00 PM CDT Office Visit [facility] - [address] [facility], [place] [address] Lazaro Gonzales MD [facility] [place] [address] Health Maintenance Due Date Last [...] COMPREHENSIVE METABOLIC PANEL Routine 04/09/2024 2:07 PM COAT PRESSER Other cirrhosis of liver (HCC) HEPATITIS C [...] (ABNORMAL) COMPREHENSIVE METABOLIC PANEL (04/09/2024 2:07 PM COAT PRESSER) BUN 22 7 - 26 mg/dL 04/09/2024 3:33 PM [facility] Creatinine 1.33(H) 0.56 - 0.96 mg/dL 04/09/2024 3:33 PM [facility] Sodium 140 136 - 145 mmol/L 04/09/2024 3:33 PM [facility] Potassium 3.9 3.5 - 4.5 mmol/L 04/09/2024 3:33 PM [facility] Chloride 104 98 - 107 mmol/L 04/09/2024 3:33 PM [facility] CO2 22 22 - 29 mmol/L 04/09/2024 3:33 PM [facility] Glucose 160(H) 70 - 99 mg/dL 04/09/2024 3:33 PM [facility] Calcium 9.4 8.4 - 10.2 mg/dL 04/09/2024 3:33 PM [facility] Protein Total 7.6 6.0 - 8.3 g/dL 04/09/2024 3:33 PM [facility] Albumin 3.4 3.4 - 5.0 g/dL 04/09/2024 3:33 PM [facility] Bilirubin Total 0.6 0.2 - 1.2 mg/dL 04/09/2024 3:33 PM [facility] Alkaline Phosphatase 155(H) 40 - 150 U/L 04/09/2024 3:33 PM [facility] ALT 12 5 - 55 U/L 04/09/2024 3:33 PM [facility] AST 20 5 - 34 U/L 04/09/2024 3:33 PM [facility] Anion Gap 14 6 - 16 04/09/2024 3:33 PM [facility] BUN/Creatinine Ratio 17 7 - 23 04/09/2024 3:33 PM [facility] Osmolality Calculated 297(H) 275 - 295 mOsm/kg 04/09/2024 3:33 PM [facility] Albumin/Globulin Ratio 0.8(L) 1.1 - 2.3 04/09/2024 3:33 PM [facility] eGFR by CKD-EPI 41(L) >=90 mL/min/1.7 3 m2 04/09/2024 3:33 PM [facility] Blood BLOOD SPECIMEN / Unknown Lab Venipuncture / Unknown 04/09/2024 2:07 PM COAT PRESSER 04/09/2024 3:00 PM [facility] Lazaro Gonzales MD LAB - CHEMISTRY DEBBI KHAN [facility] Organization Address City/State/ZIP Co de Phone Number [facility] [address] [place] [phone], [facility] [phone] * HEPATITIS C ANTIBODY (09/19/2023 3:44 PM CDT) Hepatitis C Antibody Non-react ruel Non-reac tive 09/19/2023 5:23 PM CDT [facility] Comment:Hepatitis C Antibody screen indicates no [...] Gonzales MD LAB - CHEMISTRY DEBBI KHAN [facility] [address] [place] [address], [facility] [phone] * (ABNORMAL) HEMOGLOBIN A1C (03/30/2015 12:13 PM CDT) Hemoglobin A1c 7.4(H) 4.2 - 5.8 % 03/30/2015 10:32 PM CDT [facility] Estimated Average Glucose 166 mg/dL 03/30/2015 10:32 PM CDT [facility] Whole Blood BLOOD SPECIMEN WITH EDTA / Unknown Venipuncture / Unknown 03/30/2015 12:13 PM CDT 03/30/2015 12:21 PM CDT Narrative [facility] - 03/30/2015 10:32 PM CDT [place] [employer] recommended the following cutoff levels: [...] - CHEM ISTRY ORDERABLES Performing Organization Address City/[facility]/ZIP Co de Phone Number [facility] [address] [place], [place] [address] * MICROALBUMIN URINE RANDOM (03/12/2014 11:04 AM CDT) Microalbumin Urine 20.0 0.0 - 20.0 mg/dL 03/12/2014 12:50 PM CDT [facility] Urine URINE / Unknown Venipuncture / Unknown 03/12/2014 11:04 AM CDT 03/12/2014 11:16 AM CDT Dk Kong MD LAB - URINE CHEMISTR Y ORDERABLES [facility] [address] from Last 3 Months or Most Recently Relevant to Health Maintenance Advance Directives * Full Code (Latest Code Status on File) Date Activated Date Inactivated Comments 08/04/2014 10:20 PM 08/06/2014 5:15 PM Care Teams Dovetail Machine Operator Relationship Specialty Start Date End Date Marie Matias MD [address] [place] [address] Internal Medicine 11/23/21
--- OUTSIDE RECORDS SUMMARY | 2024-08-09 04:51 | XMS_ITS | Encounter Summary ---
Author Organization [facility] Address [facility] [place] [address] Care Team Providers Care Employee Wellness/Fitness Coordinator Name Role Phone Marie Matias MD Unavailable [phone] Reason for Visit * Reason Comments Medication Problem Encounter Details Date Type Department Care Team (Late st Contact Info) Description 10/18/2023 Telephone [facility] - [address] [phone] Mariela Mcallister, cnc service engineer Problem Social History Tobacco Use Types Packs/Day [...] received from pt to report f/u with mobility specialist. Inquired about a change in medication from metoprolol succinate to carvedilol BID. Net Wpf Developer prefers pt to stay on metoprolol succinate. Dr. Gonzales notified. documented in this encounter Plan of Treatment Upcoming Encounters Date Type Department Care Team (Late st Contact Info) Description 12/05/2024 11:00 AM CDT Appointment [facility] [address] [place] [address] Lazaro Gonzales MD [address] [place] [phone] 12/05/2024 1:00 PM CDT Office Visit [facility] - [address] [place] [address] Lazaro Gonzales MD [address] [place] [phone] documented as of this encounter Visit Diagnoses Not on filedocumented in this encounter Care Teams Employee Wellness/Fitness Coordinator Relationship Specialty Start Date End Date Marie Matias MD [address] [place] [phone] Internal Medicine 11/23/21 documented as of this encounter
--- NOTE | 2024-08-09 05:19 | ED_ITS ---
HPI - General Adult General Chief complaint: Chest Pain Stated complaint: chest pain Time Seen by Provider: 08/09/24 04:05 History of Present Illness HPI narrative: Patient is a 79-year-old female who presents emergency department with chief complaint of chest palpitations patient reports that she rolled over in bed and felt a sharp pain in her chest the patient states it felt as though someone stabbed her does report that she has prior history of atrial fibrillation has a pacemaker and reports that she has prior history of breast cancer and has also had renal cancer with a nephrectomy in the past. Related Data Home Medications ?Medication ?Instructions ?Recorded ?Confirmed ?Last Taken ?Type atorvastatin 40 mg tablet 40 mg PO HS 04/30/19 08/09/24 08/08/24 History ascorbic acid (vitamin C) 250 mg 1,000 mg PO DAILY 09/29/20 08/09/24 08/08/24 History tablet ferrous sulfate 325 mg (65 mg 325 mg PO BID 09/29/20 08/09/24 08/08/24 History iron) tablet (Iron (ferrous sulfate)) lactobacillus combination no.4 3 3,000 mmu cells PO DAILY 05/18/21 08/09/24 08/08/24 History billion cell capsule (Probiotic) multivitamin with minerals-folic 1 tablet PO DAILY 11/02/21 08/09/24 08/08/24 History acid 0.4 mg tablet omega 3-stp-jef-fish oil 1,000 mg 1 cap PO DAILY 11/02/21 08/09/24 08/08/24 History (120 mg-180 mg) capsule (Fish Oil) furosemide 20 mg tablet 20 mg PO BID 09/16/22 08/09/24 08/08/24 History empagliflozin 10 mg tablet 10 mg PO DAILY 01/30/23 08/09/24 08/08/24 History (Jardiance) calcium polycarbophil 625 mg 1,250 mg PO BID PRN Constipation 06/20/23 08/09/24 08/08/24 History tablet (FiberCon) carvedilol 25 mg tablet 25 mg PO Q12H 06/27/24 08/09/24 08/08/24 History Allergies Allergy/AdvReac Type Severity Reaction Status Date / Time No Known Allergies Allergy Verified 08/09/24 05:54 Review of Systems 2 Review of Systems: A 10 system review of systems was completed on the patient and is negative except for what is stated in the HPI. Nursing and ancillary documentation was reviewed. [facility] Past Medical History Medical History CHF (congestive heart failure) Takotsubo cardiomyopathy Non-STEMI (non-ST elevated myocardial infarction) Cirrhosis New diagnosis March 2022 Diastolic dysfunction Echocardiogram 11/2021: Borderline left ventricular hypertrophy, overall good systolic function with EF of 63%, small area of the basal inferior wall hypokinesis, borderline global longitudinal strain, diastolic dysfunction, moderate left atrial enlargement, mild pulmonary hypertension Hiatal hernia BPPV (benign paroxysmal positional vertigo) Hypovitaminosis D Thrombocytopenia Paroxysmal atrial fibrillation Dyslipidemia History of colon polyps Gastric polyps Obesity Shingles DM (diabetes mellitus) DDD (degenerative disc disease) Hx of breast cancer Stage II breast cancer with 1 positive lymph node status post chemotherapy and radiation Arthritis History of GI bleed GERD (gastroesophageal reflux disease) Hypertension CAD (coronary artery disease) TIA (transient ischemic attack) CVA (cerebral vascular accident) Surgical History Surgical History History of hysteroscopy (~04/07/23) [facility] D&C, endometrial polypectomy. Benign path. Dr Hernandes (PMB) S/P placement of cardiac pacemaker History of nephrectomy, right History of heart artery stent (~2018) LAD performed at [facility] History of colonoscopy with polypectomy Most recent September 2020 History of esophagogastroduodenoscopy (EGD) Most recent EGD 11/18/2021 demonstrated multiple gastric polyps several of which were removed. Presence of Watchman left atrial appendage closure device S/P ablation of atrial fibrillation Multiple times managed by a cross country and track and field coach at [facility] History of removal of cyst from finger History of dilation and curettage Hx of tubal ligation History of mastectomy (11/2011) Partial left breast History of cholecystectomy Hx of cardiac cath with stent placement Hx of bilateral cataract extraction Family History Family History Sibling Family history of malignant neoplasm of ovary, Onset Age: 60 Mother Hypertension Heart disease Cerebrovascular accident Father Drowning, accidental Other Family history of malignant neoplasm Social History Social History Social History: The patient has 4 children. She is retired from [employer]. Lifelong nonsmoker. She does not use any alcohol marijuana or illicit drugs. She lives with her who is the durable power district attorney for healthcare. The patient desires to be a full code. Smoking status: Never smoker Second hand tobacco smoke exposure: No Alcohol intake: never Substance use: never Substance use type: does not use Do You Feel Safe in your Home?: Yes Lack of Transportation: No Lack of Food: Never True Current Housing: I Have Housing Concerned About Future Housing: No Difficulty Paying Gas/Electric Bills: No Difficulty Paying for Meds: Decline to Answer Currently Unemployed: No Education: Trade/Vocational Certificate Difficulty w/ Childcare or Family Care: No Living arrangements: with family Occupation/Education: retired Gender identity (if verbalized by the patient): Female Sexual Orientation (if Verbalized by the Patient): Straight or Heterosexual Spiritual care concerns: No Agree to blood products: Yes Exam 2 Narrative: GENERAL: Well-appearing, well-nourished, and in no acute distress. HEAD: Normocephalic, atraumatic. EYES: PERRLA and EOMI. ENT: Nares clear, no rhinorrhea or epistaxis. Mucous membranes moist. NECK: Supple. CHEST: Clear to auscultation. No respiratory distress. HEART: Regular rate and rhythm. No murmur heard. Normal peripheral pulses. ABDOMEN: Soft, nontender, nondistended, normal active bowel sounds. EXTREMITIES: Normal range of motion. No edema. SKIN: Warm, dry, no rash. NEURO: No focal deficits. Alert and oriented x3. PSYCH: Normal mood and affect. Course Vital Signs Vital signs: Vital Signs Temperature 36.5 C 08/09/24 03:18 Pulse Rate 91 08/09/24 03:18 Respiratory Rate 15 08/09/24 03:18 Blood Pressure 122/74 08/09/24 03:18 Pulse Oximetry 99 08/09/24 03:18 Oxygen Delivery Room Air 08/09/24 03:18 Temperature 36.5 C 08/09/24 03:18 Pulse Rate 83 08/09/24 07:01 Respiratory Rate 16 08/09/24 07:01 Blood Pressure 108/50 L 08/09/24 07:01 Pulse Oximetry 97 08/09/24 07:01 Oxygen Delivery Room Air 08/09/24 05:53 Medical Decision Making [facility] Narrative Medical decision making narrative: Differential diagnosis includes pneumothorax, pulmonary embolism, ACS, chest wall pain EKG showed no acute ischemic changes initial troponin was negative laboratory studies showed normal CBC CMP showed a creatinine 1.2 troponin was negative BNP was 2490 this is lower than the patient's previous BNP. Chest x-ray showed no focal infiltrate CTA chest showed no evidence of PE Vital Signs Vital Signs: Vital Signs Temperature 36.5 C 08/09/24 03:18 Pulse Rate 91 08/09/24 03:18 Respiratory Rate 15 08/09/24 03:18 Blood Pressure 122/74 08/09/24 03:18 Pulse Oximetry 99 08/09/24 03:18 Oxygen Delivery Room Air 08/09/24 03:18 Temperature 36.5 C 08/09/24 03:18 Pulse Rate 83 08/09/24 07:01 Respiratory Rate 16 08/09/24 07:01 Blood Pressure 108/50 L 08/09/24 07:01 Pulse Oximetry 97 08/09/24 07:01 Oxygen Delivery Room Air 08/09/24 05:53 Lab Data 08/09/24 03:27 08/09/24 03:27 Labs: Lab Results 08/09/24 08/09/24 08/09/24 Range/Units 03:27 03:27 06:02 WBC 9.8 (4.5-10.0) K/mm3 RBC 4.31 (4.2-5.4) M/mm3 Hgb 12.1 (12.0-15.0) g/dL Hct 37.7 (37.0-47.0) % MCV 87.5 (80-100) fl MCH 28.1 (26-34) pg MCHC 32.1 (32-36) g/dl RDW 12.6 (11.5-14.5) % Plt Count 117 L (150-375) k/mm3 MPV 12.5 H (7.4-10.4) fl Immature Gran % (Auto) 0.3 (0-0.5) % Neut % (Auto) 76.1 H (45.5-73.1) % Lymph % (Auto) 14.9 L (18.3-44.2) % [place] % (Auto) 7.7 (2.6-8.5) % Eos % (Auto) 0.5 (0-4.4) % Baso % (Auto) 0.5 (0.2-1.2) % Lymph # (Auto) 1.46 (0.9-3.2) K/mm3 [place] # (Auto) 0.8 H (0.1-0.6) K/mm3 Eos # (Auto) 0.1 (0-0.3) K/mm3 Baso # (Auto) 0.1 (0.0-0.1) K/mm3 Abs Immat Gran (auto) 0.03 (0.00-0.031) K/mm3 Absolute Neuts (auto) 7.5 H (1.3-6.7) K/mm3 Absolute Nucleated RBC 0.000 (0.0-0.012) K/mm3 Nucleated RBC % 0.0 (0.0-0.2) % PT 15.8 H (11.1-14.7) Seconds INR 1.2 APTT 34.8 (22.3-36.8) Seconds Sodium 136 L (137-145) mmol/L Potassium 3.6 (3.4-5.0) mmol/L Chloride 96 L (98-107) mmol/L Carbon Dioxide 29 (22-30) mmol/L Anion Gap 11 (4-12) mmol/L BUN 22 H (7-17) mg/dL Creatinine 1.20 H (0.7-1.0) mg/dL Estim Creat Clear Calc 32 ml/min Estimated GFR 43 L (59 - ) Glucose 126 H (65-110) mg/dL Calcium 9.3 (8.4-10.2) mg/dL Magnesium 1.8 Cancelled (1.6-2.3) mg/dL Total Bilirubin 0.9 (0.2-1.3) mg/dL AST 25 (14-36) U/L ALT 16 (6-35) U/L Alkaline Phosphatase 155 H (38-126) U/L Troponin I < 0.012 < 0.012 (0.000-0.034) ng/mL NT-Pro-B Natriuret Pep 2490 H (19.9-100) pg/mL Total Protein 8.0 (6.3-8.2) g/dL Albumin 4.1 (3.5-5.1) g/dL Lipase 114 (23-300) U/L Influenza A (RT-PCR) Negative (Negative) Influenza B (RT-PCR) Negative (Negative) RSV (RT-PCR) Negative (Negative) SARS-CoV-2 RNA (RT-PCR) Negative (Negative) Discharge Plan Discharge Clinical Impression: Chest pain, Pulmonary nodule Patient Disposition: Home, Self-Care Condition: Stable Instructions: Chest Pain (ED), Pulmonary Nodules (ED) Additional Instructions: Your CT scan showed there was a pulmonary nodule this should be followed with your primary care provider you will most likely need to be scheduled for a biopsy of this nodule Patient Language: Bermudian Prescriptions: No Action Probiotic 3 billion cell Capsule 3,000 mmu cells PO DAILY furosemide 20 mg tablet 20 mg PO BID carvedilol 25 mg tablet 25 mg PO Q12H Rx Instructions: must administer with a meal/food pantoprazole 40 mg tablet,delayed release (DR/EC) 40 mg PO QAM Qty: 90 1RF aspirin 325 mg tablet,delayed release (DR/EC) 325 mg PO DAILY Qty: 1 0RF meclizine 12.5 mg tablet 12.5 mg PO TID PRN (Reason: dizziness) Qty: 30 2RF calcium polycarbophil [FiberCon] 625 mg tablet 1,250 mg PO BID PRN (Reason: Constipation) Jardiance 10 mg tablet 10 mg PO DAILY atorvastatin 40 mg tablet 40 mg PO HS ascorbic acid (vitamin C) 250 mg Tablet 1,000 mg PO DAILY ferrous sulfate [Iron (ferrous sulfate)] 325 mg (65 mg iron) Tablet 325 mg PO BID multivit with min-folic acid 0.4 mg Tablet 1 tablet PO DAILY omega 3-det-xfb-fish oil [Fish Oil] 1,000 mg (120 mg-180 mg) Capsule 1 cap PO DAILY Rybelsus 7 mg tablet 7 mg PO DAILY Qty: 90 3RF Follow-up/Referrals: UNKNOWN,DOCTOR [Primary Care Provider] - Time of Disposition: 06:47
[2024-08-09 05:53] VITALS: BP 100/60; PULSE 88; RESP 14; O2SAT 95; O2SAT 99
--- NOTE | 2024-08-09 05:58 | ECG_ITS ---
Test Date: 2024-08-09 06:03:03 Measurements Intervals [place] Rate: 92 P: 0 VT: 0 QRS: -31 QRSD: 88 T: 60 QT: 377 QTc: 466 Interpretive Statements ATRIAL FIBRILLATION INFERIOR MYOCARDIAL INFARCTION , PROBABLY OLD [40+ ms Q WAVE AND/OR ST/T ABNORMALITY IN II/aVF] Compared to ECG 08/09/2024 03:23:40 NO SIGNIFICANT CHANGES Electronically Signed On 08-09-2024 16:28:52 CUTTING MACHINE TENDER by Maria Isabel Cesar M.D.
[2024-08-09 06:09] LABS: Magnesium 1.8 mg/dL (1.6-2.3)
[2024-08-09 06:18] LABS: NT Pro B Type Natriuretic Pept 2490 pg/mL (19.9-100)
[2024-08-09 06:30] LABS: Troponin I < 0.012 ng/mL (0.000-0.034)
[2024-08-09 06:44] LABS: Influenza A QL RT-PCR Negative (Negative); Influenza B QL RT-PCR Negative (Negative); RSV RNA, RT-PCR Negative (Negative); SARS-CoV-2 RNA PCR Negative (Negative)
[2024-08-09 07:01] VITALS: BP 108/50; PULSE 83; RESP 16; O2SAT 97
== END 2024-08-09 07:05 | disposition home or self-care (01) ==
LOC: ANHED 04:49
PROVIDERS: Emergency Provider Emergency Medicine
DX: R07.9 Chest pain, unspecified (principal); R91.1 Solitary pulmonary nodule; Z20.822 Contact with and (suspected) exposure to COVID-19; I50.9 Heart failure, unspecified; I11.0 Hypertensive heart disease with heart failure; I25.10 Atherosclerotic heart disease of native coronary artery without angina pectoris; I25.2 Old myocardial infarction; I48.0 Paroxysmal atrial fibrillation; E11.9 Type 2 diabetes mellitus without complications; E55.9 Vitamin D deficiency, unspecified; E66.9 Obesity, unspecified; Z68.29 Body mass index [BMI] 29.0-29.9, adult; M19.90 Unspecified osteoarthritis, unspecified site; K74.60 Unspecified cirrhosis of liver; K21.9 Gastro-esophageal reflux disease without esophagitis; Z95.5 Presence of coronary angioplasty implant and graft; Z95.0 Presence of cardiac pacemaker; Z86.0100 Personal history of colon polyps, unspecified; Z86.73 Personal history of transient ischemic attack (TIA), and cerebral infarction without residual deficits; Z90.5 Acquired absence of kidney; Z90.12 Acquired absence of left breast and nipple; Z90.49 Acquired absence of other specified parts of digestive tract; Z98.42 Cataract extraction status, left eye; Z98.41 Cataract extraction status, right eye; Z79.84 Long term (current) use of oral hypoglycemic drugs; Z79.899 Other long term (current) drug therapy; Z79.82 Long term (current) use of aspirin
CPT/HCPCS: 36415; 71046; 71275; 80053; 83690; 83735; 83880; 84484; 85025; 85610; 85730; 87637; 93005; 99284; Q9967

== ENCOUNTER 2024-08-19 09:43 | Outpatient (CLI) | payer MEDICARE, SELFPAY ==
--- OUTSIDE RECORDS SUMMARY | 2024-08-19 10:49 | XMS_ITS ---
Author Organization [facility] [address] Address [address] [place] [address] Care Team Providers Care Hide Cooking Operator Name Role Phone Pinky Louise MD Unavailable [phone] Mackenzie Tobin NP Unavailable [phone] Loki Viramontes MD Unavailable [phone] Frank Moses MD Unavailable Nicole Sierra NP Primary Care Provider [phone] Active Problems Problem Noted Date Diagnosed Date Sensorineural hearing loss (SNHL) of both ears 0 06/20/2024 Dizziness and giddiness 06/20/2024 S/P placement of cardiac pacemaker 10/20/2022 Assessment & Plan (07/11/2024 3:34 PM MACHINE CLOTHING REPLACER): -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 as [...] (06/27/2022): Added automatically from request for surgery [id number] A-fib 02/14/2022 Assessment & Plan (10/11/2022 11:47 [...] (07/11/2019): Added automatically from request for surgery [id number] Coronary artery disease invo lving [place] coronary artery of [place] heart without angina pectoris 11/19/2018 Angina pectoris, unstable 11/07/2018 Overview (11/07/2018): Added automatically from request for surgery [id number] GI bleed 08/06/2018 Assessment & Plan (08/29/2020 [...] a associated with type 2 diabetes mellitus ([facility]/HCC) 07/21/2015 Overview (09/09/2016): Type 2 diabetes mellitus [...] fibrillation Assessment & Plan (07/11/2024 3:39 PM MACHINE CLOTHING REPLACER): -Persistent AF and bradycardia s/p dual chamber [...] 7:43 PM CDT): Continue lipitor Hypertension, essential 08/28/202009/03/2022 Assessment & Plan (08/29/2020 10:45 AM CDT): [...]
--- OUTSIDE RECORDS SUMMARY | 2024-08-19 10:49 | XMS_ITS | Referral Summary ---
Author Organization [facility] [place] [address] [place] [address] [address] [place] [address] Care Team Providers Care Rail Transit Operator Name Role Phone Pinky Louise MD Unavailable [phone] Mackenzie Tobin NP Unavailable [phone] Loki Viramontes MD Unavailable [phone] Frnak Moses MD Unavailable [phone] Nicole Sierra NP Primary Care Provider [phone] Encounters Date Type Department Care Team Description 08/11/2024 Orders Only [facility] Cardiology [address] [facility] Advanced Medicine 8th [place] [address] [place] [phone] Ignacio Obregon MD 08/02/2024 Results Follow-Up [facility] Cardiology [address] [facility] Medical Office Building 3 [address] [place] [address] Jyotsna Soto NP 08/02/2024 Orders Only [facility] CARDIOLOGY Jyotsna Soto NP 07/31/2024 Telephone [facility] Cardiology [address] [facility] [address] [place] [address] Maria Isabel Cesar MD 07/26/2024 10:00 AM MEDICAL RECORD TECHNICIAN Therapy [facility] Medical Office Bldg 1 OP Physical Therapy [address] [place] [address] [address] [place] [address] Vesna Lopez, PT Dizziness and giddiness (Primary Dx) 07/18/2024 Telephone [facility] Cardiology [address] [place] [address] 8th [place] [address] [place] [phone] Ignacio Obregon MD 07/18/2024 Plan of Care Documentation [facility] Medical Office Bldg 1 OP Physical Therapy [address] [place] [address] [place] [address] 07/18/2024 10:15 AM MEDICAL RECORD TECHNICIAN Therapy [facility] Medical Office Bldg 1 OP Physical Therapy [address] [place] [address] [place] [address] Vesna Lopez, PT Dizziness and giddiness (Primary Dx) 07/11/2024 2:00 PM MEDICAL RECORD TECHNICIAN Office Visit [facility] Cardiology [address] [place] [address] 8th [place] [address] [place] [phone] Jyotsna Soto NP Longstanding persistent atrial fibrillation (HCC) (Primary Dx); S/P placement of cardiac pacemaker; Atrial fibrillation with RVR (HCC) 07/11/2024 1:30 PM MEDICAL RECORD TECHNICIAN Ancillary Procedure [facility] Cardiology [address] [place] [address] 8th [place] [address] [place] [phone] Sinus node dysfunction (HCC); Adjustment and management of cardiac pacemaker 07/04/2024 Telephone [facility] Otolaryngology [address] [place] [phone] Brie Vincent LPN Order vestibular rehab 07/04/2024 4:15 PM MEDICAL RECORD TECHNICIAN Telemedicine [facility] Otolaryngology [address] [place] [address] Mehul Martinez II, MD Dizziness and giddiness (Primary Dx) 07/04/2024 1:00 PM MEDICAL RECORD TECHNICIAN Procedure visit [facility] Otolaryngology [address] [place] [phone] Deanna Galvez Dizziness and giddiness (Primary Dx) 06/20/2024 1:45 PM MEDICAL RECORD TECHNICIAN Procedure visit [facility] Otolaryngology [address] [place] [phone] Deanna Galvez Dizziness and giddiness (Primary Dx); Sensorineural hearing loss (SNHL) of both ears; Tinnitus of both ears 06/20/2024 2:00 PM MEDICAL RECORD TECHNICIAN Office Visit [facility] Otolaryngology [address] [place] [phone] Mehul Martinez II, MD Sensorineural hearing loss (SNHL) of both ears (Primary Dx); Dizziness and giddiness from Last 3 Months Allergies Active Allergy [...] misc USE TO TEST THREE TIMES DAILY 08/14/19 21 Active OneTouch Delica Plus Lancet 30 gauge misc 3 (three) times a day 08/14/19 21 Active ascorbic acid (VITAMIN C ORAL)Indicatio ns:supplement Take 1 tablet by mouth every morning Active semaglutide (RYBELSUS) 3 mg tabletIndicati ons:type 2 diabetes mellitus Take 1 tablet (3 mg total) by mouth guest service aide before breakfast Active aspirin 325 mg tabletIndicati ons:prevention of thrombosis Take 1 tablet (325 mg total) by mouth every morning Active omega-3 fatty acids-fish oil (Fish OiL) 360-1,200 mg capsule Take 1 tablet by mouth every morning 02/18/[address] (PROTONIX) 40 mg EC tabletIndicati ons:Treatment of Non-Bleeding Gastric Disorder Take 1 tablet (40 mg total) by mouth daily 02/18/20 22 Active multivitamin capsuleIndicat ions:Vitamin Deficiency Prevention Take [...] BY MOUTH EVERY DAY 90 tablet 3 09/18/19 24 Active atorvastatin (LIPITOR) 40 mg tablet Take 1 tablet (40 mg total) by mouth daily Active carvediloL (COREG) 25 mg tablet Take 1 tablet (25 mg total) by mouth 2 (two) times a day with meals 180 tablet 07/31/19 25 Active furosemide (LASIX) 20 mg tabletIndicati ons:Edema, lower extremity TAKE 2 TABLETS BY MOUTH EVERY MORNING 180 tablet 1 08/14/19 25 Active furosemide (LASIX) 20 mg tabletIndicati ons:Edema, lower extremity TAKE 2 TABLETS BY MOUTH EVERY MORNING 180 tablet 2 12/27/19 24 025 Discontinued carvediloL (COREG) 25 mg tablet Take 1 tablet (25 mg total) by mouth 2 (two) times a day with meals 025 Discontinued(Re order) Active Problems Problem Noted Date Diagnosed Date Sensorineural hearing loss (SNHL) of both ears 0 06/20/2024 Dizziness and giddiness 06/20/2024 S/P placement of cardiac pacemaker 10/20/2022 Assessment & Plan (07/11/2024 3:34 PM MEDICAL RECORD TECHNICIAN): -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 as [...] (06/27/2022): Added automatically from request for surgery [id number] A-fib 02/14/2022 Assessment & Plan (10/11/2022 11:47 [...] (07/11/2019): Added automatically from request for surgery [id number] Coronary artery disease invo lving [place] coronary artery of [place] heart without angina pectoris 11/19/2018 Angina pectoris, unstable 11/07/2018 Overview (11/07/2018): Added automatically from request for surgery [id number] GI bleed 08/06/2018 Assessment & Plan (08/29/2020 [...] a associated with type 2 diabetes mellitus ([facility]) 07/21/2015 Overview (09/09/2016): Type 2 diabetes mellitus [...] fibrillation Assessment & Plan (07/11/2024 3:39 PM MEDICAL RECORD TECHNICIAN): -Persistent AF and bradycardia s/p dual chamber [...] - EP saw today. Plan dc with roseannis and BID PPI. ASA started and plavix [...] often do you attend chur ch or hindu services? Never 08/29/2022 Do you belong to any clubs o r organizations such as sabianism groups, unions, fraternal or athletic groups, or [...] place to sleep or slept in a custodial (including now)? No 08/29/2022 Personal Safety Answer Date Recorded Have you ever been in or are you currently in a harmful physical or emotional relationship or is someone making you feel afraid or unsafe? Denies 10/10/2022 Comments No Sex and Gender Information Value Date Recorded Sex Assigned at Not on file Legal Sex Female 2:00 AM MEDICAL RECORD TECHNICIAN Gender Identity Not on file Sexual Orientation Not on file Last Filed Vital Signs Vital Sign Reading Time Taken Comments Blood Pressure 106/64 04/22/2024 11:37 AM MEDICAL RECORD TECHNICIAN Pulse 91 07/11/2024 1:22 PM MEDICAL RECORD TECHNICIAN Temperature 36.7 C (98.1 F) 04/14/2023 8:56 AM MEDICAL RECORD TECHNICIAN Respiratory Rate 18 06/20/2024 1:50 PM MEDICAL RECORD TECHNICIAN Oxygen Saturation 95% 07/11/2024 1:22 PM MEDICAL RECORD TECHNICIAN Inhaled Oxygen Concentration - - Weight 73.3 kg (161 lb 9.6 oz) 07/11/2024 1:22 P M MEDICAL RECORD TECHNICIAN Height 157.5 cm (5' 2 ) 07/11/2024 1:22 PM MEDICAL RECORD TECHNICIAN Body Mass Index 29.56 07/11/2024 1:22 PM MEDICAL RECORD TECHNICIAN Plan of Treatment Not on file Medical Devices Implanted Type Area Chucking And Sawing Machine Operator Device Identifier Shelf Expiration Date Model / Serial / Lot P[employer] Inc [id number] System 6-12fr Mvp Venous Closure Vascade - [id number] Implanted:Qt y: 1 on 08/28/2020 by Crow Gramajo MD at [facility] Collagen Left: Femoral [employer] 06/23/2022 [id number] / / [id number] Description:LFV sheath [employer] [id number] System 6-12fr Mvp Venous Closure Vascade - [id number] Implanted:Qt y: 1 on 08/28/2020 by Crow Gramajo MD at [facility] Collagen Right: Femoral [employer] 06/23/2022 [id number] / / [id number] Description:RFV sheath X 1 [employer] Tendril Sts 6fr 52cm Is-1 Connector Active Fixation Bipolar Soft /52 - [id number] - [id number] Implanted:Qt y: 1 on 10/10/2022 by Ignacio Obregon MD at [facility] Lead Right: Ventricle [employer] 08/02/2025 2088TC/52 / [id number] / [employer] Tendril Sts 6fr 46cm Is-1 Connector Bipolar Active Fixation /46 - [id number] - [id number] Implanted:Qt y: 1 on 10/10/2022 by Ignacio Obregon MD at [facility] Lead Right: Atria [employer] 08/02/20258TC/46 / [id number] / Maynard [employer] Joanne [id number] Device Closure Watchman Pebax Nitinol [place] Iridium Pet 24mm L75cm Od12 Fr [id number] Fr [address] Stopcock Y Adapter Self Expand Proximal Face Sterile Disposable Left Atrial Appendage - [id number] Implanted:Qt y: 1 on 08/28/2020 by Ignacio Obregon MD at [facility] Other - see comments Left: Heart [employer] Joanne 03/23/2022 [id number] / / [id number] Description:Left atrial appe ndage closure device with delivery system [employer] Assurity Mri [id number] 2 Chamber Is-1 Connector Thk6mm Pacemaker [id number] - [id number] - [id number] Implanted:Qt y: 1 on 10/10/2022 by Ignacio Obregon MD at [facility] Pacemaker Right: Chest Wall [employer] 03/04/2024 [id number] / [id number] / [id number] Medtronic U[employer] Inc X [id number] Resolute Stefano 3.5mm 2.1-2.7fr 18mm 140cm Rapid Exchange - [id number] Implanted:Qt y: 1 on 11/26/2018 by Ildefonso Barrios MD PhD at [facility] Stent Medtronic Inc 09/05/2020 [id number] / / [id number] [employer] Vascade Mvp 6-12fr Venous Closure [id number] - [id number] - [id number] Implanted:Qt y: 1 on 10/10/2022 by Ignacio Obregon MD at [facility] Vascular Closure Device Right: Femoral Vein [employer] 03/15/2024 [id number] / [id number] / [id number] Lens Bilateral: Eye Device Lizzy Watchman Procedure - [id number] Implanted:Qt y: 1 on 08/28/2020 by Ignacio Obregon MD at [facility] Coin [id number] 1-3 PC / / Procedures Procedure Name Priority Date/Time Associated Diagnosis Comments DEVICE CHECK - REMOTE Routine 08/11/2024 5:00 AM CDT CARDIOLOGY DOCUMENT SCAN 08/02/2024 11:20 AM MEDICAL RECORD TECHNICIAN DEVICE CHECK - IN OFFICE Routine 07/11/2024 1:13 PM MEDICAL RECORD TECHNICIAN Sinus node dysfunction (HCC) Adjustment and management of cardiac pacemaker POCT LIPID PANEL Routine 04/22/2024 11:4 3 AM MEDICAL RECORD TECHNICIAN Lipid screening EGFR Routine 10/11/2022 4:40 AM CDT HEMOGLOBIN A1C STAT 08/28/2022 3:07 AM CDT from Last 3 Months or Most Recently Relevant to Health Maintenance Results * DEVICE CHECK - REMOTE (08/11/2024 5:00 AM CDT) Anatomical Region Laterality Modality Other 08/11/2024 5:00 AM CDT Narrative 08/11/2024 11:24 PM CDT Interpretation Summary: Battery and Leads (BL) Normal parameters noted on battery and lead(s) --- 5.5 to 9.0 years remaining (this is an estimate based on prior usage) Presenting Rhythm (NH) Atrial Fibrillation or Flutter Ventricular Sensing (VS) --- 50's to 90 Arrhythmic events (AE) Longstanding persistent atrial fibrillation and/or flutter Anticoagulation (AC) Patient is not on anticoagulant therapy Patient is status-post left atrial appendage occlusion device Transmission Information (TI) Device Summary Report Procedure Note Ignacio Obregon MD - 08/11/2024 Interpretation Summary: Battery and Leads (BL) Normal parameters noted on battery and lead(s) --- 5.5 to 9.0 yearsremaining (this is an estimate based on prior usage) Presenting Rhythm (NH) Atrial Fibrillation or Flutter Ventricular Sensing (VS) --- 50's to 90 Arrhythmic events (AE) Longstanding persistent atrial fibrillation and/or flutter Anticoagulation (AC) Patient is not on anticoagulant therapy Patient is status-post left atrial appendage occlusion device Transmission Information (TI) Device Summary Report us Ignacio bOregon MD [facility] Final Result * Cardiology Document Scan (08/02/2024 11:20 AM MEDICAL RECORD TECHNICIAN) Anatomical Region Laterality Modality Other us Jyotsna Soto NP [facility] Final Result * DEVICE CHECK - IN OFFICE (07/11/2024 1:13 PM MEDICAL RECORD TECHNICIAN) Anatomical Region Laterality Modality Other 07/11/2024 2:00 AM MEDICAL RECORD TECHNICIAN Narrative 07/12/2024 10:54 AM MEDICAL RECORD TECHNICIAN Interpretation Summary: Battery and Leads (BL) Normal [...] device Ignacio Obregon MD [facility] Final Result * POCT lipid panel (04/22/2024 11:43 AM MEDICAL RECORD TECHNICIAN) Cholesterol, POC 119 mg/dL HDL, POC 35 mg/dL Triglycerides, POC 102 mg/dL LDL Cholesterol POC 64 mg/dL Chol/HDL Ratio, POC 1.9 Non-HDL Cholesterol, POC 85 mg/dL Cholesterol Total, POC 119 mg/dL Capillary blood 04/22/2024 1 1:43 AM MEDICAL RECORD TECHNICIAN Sindhu Patrick NP POINT OF CARE TEST ORDERA BLES Final Result * (ABNORMAL) eGFR (10/11/2022 4:40 AM CDT) eGFR 41(L) 90 - 130 mL/min/1. 73 m2 [facility] Comment: Interpretive Data Reference Interval Normal >/= [...] ORDERABLES Final R esult Performing Organization Address [facility] de Phone Number [facility] [place] [address] * (ABNORMAL) Hemoglobin A1c (08/28/2022 3:07 AM CDT) Hgb A1C 6.1(H) 4.0 - 5.6 % [facility] Estimated Average Glucose 128 mg/dL [facility] Comment: The ADA recommends reporting an estimated [...] ORDERABLES Final Re sult Performing Organization Address [facility] Co de Phone Number [facility] [place] [place] [address] from Last 3 Months or Most Recently Relevant to Health Maintenance Insurance MEDICARE [facility] MEDICARE [facility] MEDICARE [facility] MEDICARE MEDICARE MEDICARE [facility] Advance Directives For more information, please contact: [phone] * Full Code (Latest Code Status on [...] 4:14 AM 11/07/2020 6:56 PM Care Teams Rail Transit Operator Relationship Specialty Start Date End Date Nicole Sierra NP [address] [place] [address] PCP - General Nurse Practitioner 07/20/23 Pinky Louise MD Consulting Physician Gastroenterology 10/02/18 [place] [address] [place] [address] Nurse Practitioner Medical Oncology 02/09/22 [place] [address] [place] [address] Consulting Physician Urology 08/06/22 [place] [address] [place] [address] Consulting Physician Cardiology 08/06/22
--- OUTSIDE RECORDS SUMMARY | 2024-08-19 10:50 | XMS_ITS | Clinical Summary ---
Author Organization [facility] Address [address] [facility] [place] [address] Care Team Providers Care Building Custodian Name Role Phone Marie Matias MD Unavailable [phone] Source Comments [facility],non-owned Affiliates and Associated Physician Practices is amultiple site organization consisting of ambulatory clinics and hospital sitesin [place], [place], [place] and [place]. This disclosure is being madepursuant to the Care Everywhere program and may not contain all information available regarding this patient. Last updated 18.[facility] Allergies No known active allergies Medications * [...] 1 Tab by mouth once daily. Active Homeland-3 Fatty Acids 1200 MG CAPS Take 1 [...] rybelsus -SSI Coronary artery disease invo lving [place] coronary artery of [place] heart without angina pectoris 11/19/2018 09/21/2023 Angina pectoris, unstable 11/07/20182023 Overview (09/21/2023): Added automatically from request for surgery [id number] H/O TIA (transient ischemic attack) and stroke [...] Travel 07/26/2024 Telephone [facility] - [address] [phone] Sammie Pereira, RN Appointment from Last 3 [...] Comments Blood Pressure 126/86 04/09/2024 12:40 PM B[facility] SORTER Pulse 98 04/09/2024 12:40 PM B[facility] SORTER Temperature 36.6 C (97.8 F) 08/06/2014 11:36 AM BOX SORTER Respiratory Rate 10 03/07/2022 7:51 AM CDT Oxygen Saturation 97% 04/09/2024 12:40 PM BOX SORTER Inhaled Oxygen Concentration - - Weight 72.7 kg (160 lb 3.2 oz) 04/09/2024 12:40 PM BOX SORTER Height 157.5 cm (5' 2 ) 04/09/2024 12:40 PM B[facility] S[facility]TER Body Mass Index 29.3 04/09/2024 12:40 PM BOX SORTER Plan of Treatment Upcoming Encounters Date Type Department Care Team (Late st Contact Info) Description 12/05/2024 11:00 AM CDT Appointment [facility] [address] [place] [address] Lazaro Gonzales MD [address] [place] [address] 12/05/2024 1:00 PM CDT Office Visit [facility] - [address] [facility], [place] [address] Lazaro Gonzales MD [facility] [place] [address] Health Maintenance Due Date Last [...] complete this topic MENINGOCOCCAL (Group B) VACCINE SHARED DECISION-MAKING Aged Out No longer eligible based on patient's age to complete this topic MENINGOCOCCAL GROUPS A/C/Y/W VACCINE Aged Out No longer eligible based on patient's age to complete this topic Goals Goal Patient Goal Type Associated Problems Recent Progress Patient-Stated? Author Medication Management General No Lizzie Valente, RN Note: Expected end date: ongoing Interventions: Take all medications as prescribed Procedures Procedure Name Priority Date/Time Associated Diagnosis Comments COMPREHENSIVE METABOLIC PANEL Routine 04/09/2024 2:07 PM BOX SORTER Other cirrhosis of liver (HCC) HEPATITIS C [...] (ABNORMAL) COMPREHENSIVE METABOLIC PANEL (04/09/2024 2:07 PM BOX SORTER) BUN 22 7 - 26 mg/dL 04/09/2024 3:[address] [facility] Creatinine 1.33(H) 0.56 - 0.96 mg/dL 04/09/2024 3:[address] [facility] Sodium 140 136 - 145 mmol/L 04/09/2024 3:[address] [facility] Potassium 3.9 3.5 - 4.5 mmol/L 04/09/2024 3:[address] [facility] Chloride 104 98 - 107 mmol/L 04/09/2024 3:[address] [facility] CO2 22 22 - 29 mmol/L 04/09/2024 3:[address] [facility] Glucose 160(H) 70 - 99 mg/dL 04/09/2024 3:33 PM [facility] Calcium 9.4 8.4 - 10.2 mg/dL 04/09/2024 3:33 PM [facility] Protein Total 7.6 6.0 - 8.3 g/dL 04/09/2024 3:33 PM [facility] Albumin 3.4 3.4 - 5.0 g/dL 04/09/2024 3:33 PM [facility] Bilirubin Total 0.6 0.2 - 1.2 mg/dL 04/09/2024 3:33 PM [facility] Alkaline Phosphatase 155(H) 40 - 150 U/L 04/09/2024 3:33 PM [facility] ALT 12 5 - 55 U/L 04/09/2024 3:33 PM [facility] AST 20 5 - 34 U/L 04/09/2024 3:33 PM [facility] Anion Gap 14 6 - 16 04/09/2024 3:33 PM [facility] BUN/Creatinine Ratio 17 7 - 23 04/09/2024 3:33 PM [facility] Osmolality Calculated 297(H) 275 - 295 mOsm/kg 04/09/2024 3:33 PM [facility] Albumin/Globulin Ratio 0.8(L) 1.1 - 2.3 04/09/2024 3:33 PM [facility] eGFR by CKD-EPI 41(L) >=90 mL/min/1.7 3 m2 04/09/2024 3:33 PM [facility] Blood BLOOD SPECIMEN / Unknown Lab Venipuncture / Unknown 04/09/2024 2:07 PM [facility] 04/09/2024 3:00 PM [facility] [[email or web address] Lazaro Gonzales MD LAB - CHEMISTRY DEBBI KHAN [facility] Organization Address City/State/ZIP Co de Phone Number [address] [address], [facility] [phone] * HEPATITIS C ANTIBODY (09/19/2023 3:44 PM CDT) Hepatitis C Antibody Non-react ruel Non-reac tive 09/19/2023 5:23 PM CDT [facility] Comment:Hepatitis C Antibody screen indicates no serologic [...] CDT Lazaro Gonzales MD LAB - CHEMISTRY [facility] [address] [place] [address], [facility] [phone] * (ABNORMAL) HEMOGLOBIN A1C (03/30/2015 12:13 PM CDT) Hemoglobin A1c 7.4(H) 4.2 - 5.8 % 03/30/2015 10:32 PM CDT [facility] Estimated Average Glucose 166 mg/dL 03/30/2015 10:32 PM CDT [facility] Whole Blood BLOOD SPECIMEN WITH EDTA / Unknown Venipuncture / Unknown 03/30/2015 12:13 PM CDT 03/30/2015 12:21 PM CDT Narrative [facility] - 03/30/2015 10:32 PM CDT [place] [employer] recommended the following cutoff levels: [...] Provider Unlisted LAB - CHEM ISTRY ORDERABLES [facility] [address] [place] [address], [place] * MICROALBUMIN URINE RANDOM (03/12/2014 11:04 AM CDT) Microalbumin Urine 20.0 0.0 - 20.0 mg/dL 03/12/2014 12:50 PM CDT [facility] Urine URINE / Unknown Venipuncture / Unknown 03/12/2014 11:04 AM CDT 03/12/2014 11:16 AM CDT Dk Kong MD LAB - URINE CHEMISTR Y ORDERABLES [facility] [address] [facility] [address] from Last 3 Months or Most Recently Relevant to Health Maintenance Advance Directives * Full Code (Latest Code Status on File) Date Activated Date Inactivated Comments 08/04/2014 10:20 PM 08/06/2014 5:15 PM Care Teams Building Custodian Relationship Specialty Start Date End Date Marie Matias MD [address] [place] [address] Internal Medicine 11/23/21
--- OUTSIDE RECORDS SUMMARY | 2024-08-19 10:50 | XMS_ITS | Encounter Summary ---
Author Organization [facility] Address [address] [facility] [place] [address] Care Team Providers Care Repacker Name Role Phone Marie Matias MD Unavailable Encounter Details Date Type Department Care Team (Late Contact Info) Description 01/03/2023 Lab Requisition [facility] - DermPath Lab [address] [facility] [place] [address] Jyotsna Tineo, DO [address] [facility] 3L DE[place] [address] Social History Tobacco Use Types Packs/Day Years [...] Info) Description 12/05/2024 11:00 AM CDT Appointment [facility] [address] [place] [phone] Lazaro Gonzales MD [address] [place] [phone] 12/05/2024 1:00 PM CDT Office Visit [facility] - GI [address] [facility] [address], [place] [phone] Lazaro Gonzales MD [address] [place] [phone] documented as of this encounter Procedures Procedure Name Priority Date/Time Associated Diagnosis Comments DERMATOPATHOLOGY Routine 01/03/2023 11:1 1 AM CDT documented in this encounter Results * DERMATOPATHOLOGY (01/03/2023 11:11 AM CDT) Case Report Dermatopathology Report Case: [id number] Authorizing Provider: Jyotsna Tineo DO Collected: 01/03/2023 11:11 AM Ordering Location: [facility] Received: 01/03/2023 03:19 PM [...] of a non-oriented ellipse of skin measuring [id number] mm. The epidermal surface is unremarkable. The [...] determined by the Dermatopathology Laboratory at [facility], directed by Dr. Blair Garcia. These tests need not be, and therefore are not, approved by the [place] Food and Drug Administration. The tests are used for clinical purposes. Billing Codes Specimen Charges Stain Charges 20418 1 3 5:22 PM CDT DERMATOPATHOLOGY LABORATORY Embedded Images 3 5:22 PM CDT DERMATOPATHOLOGY LABORATORY Pathology/Cytolo gy TISSUE SPECIMEN FROM SKIN / Unknown 01/03/2023 11:11 AM CDT 01/03/2023 3:19 PM CDT Jyotsna Tineo DO LAB - PATHOLOGY/C YTOLOGY ORDERABLES DERMATOPATHOLOGY LABORATORY [facility] - Department of Dermatology [facility] Medicine [address] [place] [address], [address] [phone] documented in this encounter Visit Diagnoses Not on filedocumented in this encounter Care Teams Repacker Relationship Specialty Start Date End Date Marie Matias MD [address] [place] [address] Internal Medicine 11/23/21 documented as of this encounter
--- OUTSIDE RECORDS SUMMARY | 2024-08-19 10:50 | XMS_ITS | Referral Summary ---
Author Organization [facility] Address [address] [facility] [place] [address] Care Team Providers Care Rod Machine Operator Name Role Phone Marie Matias MD Unavailable [phone] Source Comments [facility],non-owned Affiliates and Associated Physician Practices is amultiple site organization consisting of ambulatory clinics and hospital sitesin [place], [place], [place] and [place]. This disclosure is being madepursuant to the Care Everywhere program and may not contain all information available regarding this patient. Last updated 18.[facility] Lab Encounters Date Type Department Care Team Description 07/26/2024 Travel 07/26/2024 Telephone [facility] - [address] [place] [address] Sammie Pereira, RN Appointment from [...] 1 Tab by mouth once daily. 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 11/19/2018 09/21/2023 Angina pectoris, unstable 11/07/20182023 Overview (09/21/2023): Added automatically from request for surgery [id number] H/O TIA (transient ischemic attack) and stroke [...] Comments Blood Pressure 126/86 04/09/2024 12:40 PM [facility] Pulse 98 04/09/2024 12:40 PM [facility] Temperature 36.6 C (97.8 F) 08/06/2014 11:36 AM [facility] Respiratory Rate 10 03/07/2022 7:51 AM CDT Oxygen Saturation 97% 04/09/2024 12:40 PM [facility] Inhaled Oxygen Concentration - - Weight 72.7 kg (160 lb 3.2 oz) 04/09/2024 12:40 PM [facility] Height 157.5 cm (5' 2 ) 04/09/2024 12:40 PM [facility] Body Mass Index 29.3 04/09/2024 12:40 PM [facility] Functional Status Functional Status Response Date of [...] Info) Description 12/05/2024 11:00 AM CDT Appointment [facility] [address] [place] [address] Lazaro Gonzales MD [address] [place] [address] 12/05/2024 1:00 PM CDT Office Visit [facility] - [address] [place] [address], [place] [address] Lazaro Gonzales MD [address] [place] [phone] Goals Goal Patient Goal Type Associated Problems Recent Progress Patient-Stated? Author Medication Management General No Lizzie Valente, RN Note: Expected end date: ongoing Interventions: Take all medications as prescribed Procedures Procedure Name Priority Date/Time Associated Diagnosis Comments COMPREHENSIVE METABOLIC PANEL Routine 04/09/2024 2:07 PM [facility] Other cirrhosis of liver (HCC) HEPATITIS C [...] (ABNORMAL) COMPREHENSIVE METABOLIC PANEL (04/09/2024 2:07 PM [facility]) BUN 22 7 - 26 mg/dL 04/09/2024 3:33 PM [facility] Creatinine 1.33(H) 0.56 - 0.96 mg/dL 04/09/2024 3:33 PM [facility] Sodium 140 136 - 145 mmol/L 04/09/2024 3:33 PM [facility] Potassium 3.9 3.5 - 4.5 mmol/L 04/09/2024 3:33 PM [facility] Chloride 104 98 - 107 mmol/L 04/09/2024 3:33 PM [facility] CO2 22 22 - 29 mmol/L 04/09/2024 3:33 PM [facility] Glucose 160(H) 70 - 99 mg/dL 04/09/2024 3:33 PM [facility] Calcium 9.4 8.4 - 10.2 mg/dL 04/09/2024 3:33 PM [facility] Protein Total 7.6 6.0 - 8.3 g/dL 04/09/2024 3:33 PM [facility] Albumin 3.4 3.4 - 5.0 g/dL 04/09/2024 3:33 PM [facility] Bilirubin Total 0.6 0.2 - 1.2 mg/dL 04/09/2024 3:33 PM [facility] Alkaline Phosphatase 155(H) 40 - 150 U/L 04/09/2024 3:33 PM [facility] ALT 12 5 - 55 U/L 04/09/2024 3:33 PM [facility] AST 20 5 - 34 U/L 04/09/2024 3:33 PM [facility] Anion Gap 14 6 - 16 04/09/2024 3:33 PM [facility] BUN/Creatinine Ratio 17 7 - 23 04/09/2024 3:33 PM [facility] Osmolality Calculated 297(H) 275 - 295 mOsm/kg 04/09/2024 3:33 PM [facility] Albumin/Globulin Ratio 0.8(L) 1.1 - 2.3 04/09/2024 3:33 PM [facility] eGFR by CKD-EPI 41(L) >=90 mL/min/1.7 3 m2 04/09/2024 3:33 PM [facility] Blood BLOOD SPECIMEN / Unknown Lab Venipuncture / Unknown 04/09/2024 2:07 PM [facility] 04/09/2024 3:00 PM [facility] Lazaro Gonzales MD LAB - CHEMISTRY DEBBI KHAN Performing Organization Address City/[facility]/ZIP Co de Phone Number [address] [address], [facility] [phone] * HEPATITIS C ANTIBODY (09/19/2023 3:44 PM CDT) [facility] Hepatitis C Antibody Non-react ruel Non-reac tive 09/19/2023 5:23 PM CDT [facility] Comment:Hepatitis C Antibody screen indicates [...] Performing Organization Address City/[facility]/ZIP Co de Phone Number [address] [address], [facility] [phone] * (ABNORMAL) HEMOGLOBIN A1C (03/30/2015 12:13 PM CDT) Pathologist [facility] Hemoglobin A1c 7.4(H) 4.2 - 5.8 % 03/30/2015 10:32 PM CDT [facility] Estimated Average Glucose 166 mg/dL 03/30/2015 10:32 PM CDT [facility] Whole Blood BLOOD SPECIMEN WITH EDTA / Unknown Venipuncture / Unknown 03/30/2015 12:13 PM CDT 03/30/2015 12:21 PM CDT Narrative [facility] - 03/30/2015 10:32 PM CDT [place] [employer] recommended the following cutoff levels: [...] - CHEM ISTRY ORDERABLES Performing Organization Address [facility] Co de Phone Number [facility] [address] * MICROALBUMIN URINE RANDOM (03/12/2014 11:04 AM CDT) Microalbumin Urine 20.0 0.0 - 20.0 mg/dL 03/12/2014 12:50 PM CDT [facility] Urine URINE / Unknown Venipuncture / Unknown 03/12/2014 11:04 AM CDT 03/12/2014 11:16 AM CDT Dk Kong MD LAB - URINE CHEMISTR Y ORDERABLES Performing Organization Address [facility] Co de Phone Number [facility] [address] from Last 3 Months or Most Recently Relevant to Health Maintenance Advance Directives * Full Code (Latest Code Status on File) Date Activated Date Inactivated Comments 08/04/2014 10:20 PM 08/06/2014 5:15 PM Care Teams Rod Machine Operator Relationship Specialty Start Date End Date Marie Matias MD [address] [place] [address] Internal Medicine 11/23/21
--- OUTSIDE RECORDS SUMMARY | 2024-08-19 10:50 | XMS_ITS | Clinical Summary ---
Author Organization [facility] Address [address] [place] [address] Care Team Providers Care Activities Concierge Name Role Phone Unavailable Primary Care Provider [...]
--- OUTSIDE RECORDS SUMMARY | 2024-08-19 10:50 | XMS_ITS | Encounter Summary ---
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 Inquired about a change in medication from metoprolol succinate to carvedilol BID. Dental Ceramist Helper prefers pt to stay on metoprolol succinate. Dr. Gonzales notified. documented in this encounter Plan of Treatment Upcoming Encounters Date Type Department Care Team (Late st Contact Info) Description 12/05/2024 11:00 AM CDT Appointment [facility] [address] [place] [address] Lazaro Gonzales MD [address] [place] [address] 12/05/2024 1:00 PM CDT Office Visit [facility] - [address], [place] [address] Lazaro Gonzales MD [address] [place] [address] documented as of this encounter Visit Diagnoses Not on filedocumented in this encounter Care Teams Business Process Expert Relationship Specialty Start Date End Date Marie Matias MD [address] [place] [phone] Internal Medicine 11/23/21 documented as of this encounter
--- OUTSIDE RECORDS SUMMARY | 2024-08-19 10:50 | XMS_ITS | Encounter Summary ---
Author Organization [facility] Address [address] [place] [address] Phone Care Team Providers Care Executive Vp Name Role Phone Pinky Louise MD Unavailable [phone] Mackenzie Tobin NP Unavailable [phone] Loki Viramontes MD Unavailable [phone] Frank Moses MD Unavailable [phone] Nicole Sierra NP Primary Care Provider [phone] Encounter Details Date Type Department Care Team (Late st Contact Info) Description 08/02/2024 Results Follow-Up [facility] [address] [facility] [address] [place] [address] Jyotsna Soto, ADRIANA [address] [place] [id number] Social History Tobacco Use Types Packs/Day Years [...] often do you attend chur ch or holiness services? Never 08/29/2022 Do you belong to any clubs o r organizations such as baptist groups, unions, fraternal or athletic groups, or [...] place to sleep or slept in a fpc (including now)? No 08/29/2022 Personal Safety Answer Date Recorded Have you ever been in or are you currently in a harmful physical or emotional relationship or is someone making you feel afraid or unsafe? Denies 10/10/2022 Comments No Sex and Gender Information Value Date Recorded Sex Assigned at Not on file Legal Sex Female 2:00 AM RESIDENTIAL THERAPIST Gender Identity Not on file Sexual Orientation Not on file documented as of this encounter Plan of Treatment Not on file documented as of this encounter Visit Diagnoses Not on filedocumented in this encounter Care Teams Executive Vp Relationship Specialty Start Date End Date Nicole Sierra NP [address] [facility] [place], [place] [phone] PCP - General Nurse Practitioner 07/20/23 Pinky Louise MD Consulting Physician Gastroenterology 10/02/18 Mackenzie Tobin NP [address] [place] [address] Nurse Practitioner Medical Oncology 02/09/22 [place] [address] [place] [address] Consulting Physician Urology 08/06/22 [place] [address] [place], [place] [phone] Consulting Physician Cardiology 08/06/22 documented as of this encounter
--- OUTSIDE RECORDS SUMMARY | 2024-08-19 10:50 | XMS_ITS | Patient Health Summary ---
Author Organization [facility] Address [address] [place] [address] Care Team Providers Care Mat Roller Name Role Phone Marie Matias MD Unavailable [phone] [facility],non-owned Affiliates and Associated Physician Practices is amultiple site organization consisting of ambulatory clinics and hospital sitesin [place], [place], [place] and [place]. This disclosure is being madepursuant to the Care Everywhere program and may not contain all information available regarding this patient. Last updated 18.[facility] SendTask Allergies No known active allergies Medications * [...] 1 Tab by mouth once daily. * Lumpkin-3 Fatty Acids 1200 MG CAPS Take 1 [...] 08/28/2020 09/21/2023 Coronary artery disease invo lving [place] coronary artery of [place] heart without angina pectoris 11/19/2018 09/21/2023 Angina [...] Comments Blood Pressure 126/86 04/09/2024 12:40 PM MANAGER LIFE Pulse 98 04/09/2024 12:40 PM MANAGER LIFE Temperature 36.6 C (97.8 F) 08/06/2014 11:36 AM MANAGER LIFE Respiratory Rate 10 03/07/2022 7:51 AM CDT Oxygen Saturation 97% 04/09/2024 12:40 PM MANAGER LIFE Inhaled Oxygen Concentration - - Weight 72.7 kg (160 lb 3.2 oz) 04/09/2024 12:40 PM MANAGER LIFE Height 157.5 cm (5' 2 ) 04/09/2024 12:40 PM MANAGER LIFE Body Mass Index 29.3 04/09/2024 12:40 PM MANAGER LIFE Procedures * ALPHA FETOPROTEIN BLOOD TUMOR MARKER(Performed [...] DIFFERENTIAL(Performed 09/19/2023) Performed for Hepatic fibrosis * [place] LIVER ELASTOGRAPHY(Performed 09/19/2023) Performed for Hepatic fibrosis [...] + MICRO EXAM(Performed 04/20/2010) Results * PT-INR [facility] (04/09/2024 2:07 PM MANAGER LIFE) Only the most recent of2 resultswithin the time period is included. PT 14.6 12.1 - 14.8 Seconds 04/09/2024 3:29 PM MANAGER LIFE [facility] INR 1.2 See Comment 04/09/2024 3:29 PM MANAGER LIFE [facility] Comment:The suggested therap eutic range for standard coumadin (warfarin) therapy is an INR of 2.0-3.0. For high-risk patients (Mechanical Mitral Valve Prosthesis, etc.), the suggested prophylactic therapeutic range is an INR of 2.5-3.5. Blood BLOOD SPECIMEN / Unknown Lab Venipuncture / Unknown 04/09/2024 2:07 PM MANAGER LIFE 04/09/2024 2:54 PM MANAGER LIFE Lazaro Gonzales MD LAB - COAGULATION OR DERABLES [facility] [address] [place] [address] [phone] * ALPHA FETOPROTEIN BLOOD TUMOR MARKER (04/09/2024 2:07 PM MANAGER LIFE) Only the most recent of2 resultswithin the time period is included. [facility] Alpha-Fetoprote in Tumor Marker 3.3 <=8.3 ng/mL 04/09/2024 3:51 PM [facility] Comment: AFP values will vary depending on testing procedure used. Results are not comparable across different methods. AFP values obtained by [facility] using an Rivas Alinity Immunoassay. Blood BLOOD SPECIMEN / Unknown Lab Venipuncture / Unknown 04/09/2024 2:07 PM MANAGER LIFE 04/09/2024 3:00 PM MANAGER LIFE Lazaro Gonzales MD LAB - CHEMISTRY DEBBI KHAN [facility] [address] [place] [address], [facility] [phone] * (ABNORMAL) CBC WITH DIFFERENTIAL (04/09/2024 2:07 PM MANAGER LIFE) Only the most recent of5 resultswithin the time period is included. [facility] WBC 9.2 4.0 - 10.7 x10E9/L 04/09/2024 3:18 PM [facility] RBC Count 4.55 3.90 - 5.20 x10E12/L 04/09/2024 3:18 PM [facility] Hemoglobin 12.6 11.9 - 15.8 g/dL 04/09/2024 3:18 PM [facility] Hematocrit 39.9 34.8 - 46.1 % 04/09/2024 3:18 PM [facility] MCV 87.7 80.0 - 98.0 fL 04/09/2024 3:18 PM [facility] MCH 27.7 26.7 - 33.6 pg 04/09/2024 3:18 PM [facility] MCHC 31.6(L) 31.7 - 36.3 g/dL 04/09/2024 3:18 PM [facility] RDW-CV 13.4 11.3 - 14.8 % 04/09/2024 3:18 PM [facility] Platelet Count 103(L) 150 - 420 x10E9/L 04/09/2024 3:18 PM [facility] MPV 04/09/2024 3:18 PM [facility] Comment:Unable to report Neutrophil % 80.8(H) 41.0 - 74.0 % 04/09/2024 3:18 PM [facility] Lymphocyte % 13.0(L) 17.0 - 47.0 % 04/09/2024 3:18 PM [facility] Monocyte % 5.3 3.0 - 11.0 % 04/09/2024 3:18 PM [facility] Eosinophil % 0.4 0.0 - 7.0 % 04/09/2024 3:18 PM [facility] Basophil % 0.3 0.0 - 1.6 % 04/09/2024 3:18 PM [facility] Immature Granulocytes % 0.2 0.0 - 1.0 % 04/09/2024 3:18 PM [facility] Neutrophil Absolute 7.40 1.60 - 7.50 x10E9/L 04/09/2024 3:18 PM [facility] Lymphocyte Absolute 1.19 1.00 - 4.40 x10E9/L 04/09/2024 3:18 PM [facility] Monocyte Absolute 0.49 0.15 - 1.00 x10E9/L 04/09/2024 3:18 PM [facility] Eosinophil Absolute 0.04 0.00 - 0.60 x10E9/L 04/09/2024 3:18 PM [facility] Basophil Absolute 0.03 0.00 - 0.13 x10E9/L 04/09/2024 3:18 PM [facility] Blood BLOOD SPECIMEN / Unknown Lab Venipuncture / Unknown 04/09/2024 2:07 PM MANAGER LIFE 04/09/2024 3:00 PM [facility] Lazaro Gonzales MD LAB - HEMATOLOGY ORD ERABLES [facility] [address] [place] [address] [phone] * (ABNORMAL) COMPREHENSIVE METABOLIC PANEL (04/09/2024 2:07 PM [facility]) Only the most recent of6 resultswithin the time period is included. BUN 22 7 - 26 mg/dL 04/09/2024 3:33 PM [facility] Creatinine 1.33(H) 0.56 - 0.96 mg/dL 04/09/2024 3:33 PM [facility] Sodium 140 136 - 145 mmol/L 04/09/2024 3:33 PM [facility] Potassium 3.9 3.5 - 4.5 mmol/L 04/09/2024 3:33 PM [facility] Chloride 104 98 - 107 mmol/L 04/09/2024 3:33 PM [facility] CO2 22 22 - 29 mmol/L 04/09/2024 3:33 PM [facility] Glucose 160(H) 70 - 99 mg/dL 04/09/2024 3:33 PM [facility] Calcium 9.4 8.4 - 10.2 mg/dL 04/09/2024 3:33 PM [facility] Protein Total 7.6 6.0 - 8.3 g/dL 04/09/2024 3:33 PM [facility] Albumin 3.4 3.4 - 5.0 g/dL 04/09/2024 3:33 PM [facility] Bilirubin Total 0.6 0.2 - 1.2 mg/dL 04/09/2024 3:33 PM [facility] Alkaline Phosphatase 155(H) 40 - 150 U/L 04/09/2024 3:33 PM [facility] ALT 12 5 - 55 U/L 04/09/2024 3:33 PM [facility] AST 20 5 - 34 U/L 04/09/2024 3:33 PM [facility] Anion Gap 14 6 - 16 04/09/2024 3:33 PM [facility] BUN/Creatinine Ratio 17 7 - 23 04/09/2024 3:33 PM [facility] Osmolality Calculated 297(H) 275 - 295 mOsm/kg 04/09/2024 3:33 PM MANAGER LIFE [facility] Albumin/Globulin Ratio 0.8(L) 1.1 - 2.3 04/09/2024 3:33 PM MANAGER LIFE [facility] eGFR by CKD-EPI 41(L) >=90 mL/min/1.7 3 m2 04/09/2024 3:33 PM MANAGER LIFE [facility] Blood BLOOD SPECIMEN / Unknown Lab Venipuncture / Unknown 04/09/2024 2:07 PM MA[facility]GER LIFE 04/09/2024 3:00 PM MANAGER LIFE Lazaro Gonzales MD LAB - CHEMISTRY DEBBI KHAN Performing Organization Address City/[facility]/ZIP Co de Phone Number [address] [address], [facility] [phone] * BILIRUBIN DIRECT (04/09/2024 2:07 PM MANAGER LIFE) Bilirubin Conjugated 0.2 0.1 - 0.5 mg/dL 04/09/2024 3:33 PM MANAGER LIFE [facility] Blood BLOOD SPECIMEN / Unknown Lab Venipuncture / Unknown 04/09/2024 2:07 PM MANAGER LIFE 04/09/2024 3:00 PM MANAGER LIFE Lazaro Gonzales MD LAB - CHEMISTRY DEBBI KHAN Performing Organization Address City/[facility]/ZIP Co de Phone Number [address] [address], [place] [phone] * US ABDOMEN LIMITED (04/09/2024 11:00 AM MANAGER LIFE) Anatomical Region Laterality Modality Abdomen Ultrasound 04/09/2024 11:3 6 AM MANAGER LIFE Impressions 04/09/2024 2:42 PM MANAGER LIFE IMPRESSION: Liver Visualization Score A: No or minimal limitations. US-1 Negative. Repeat surveillance US in 6 months. Patent hepatic vasculature. 1.Hepatic cirrhosis without discrete hepatic observation. Report drafted by Raza Jackson MD IOliver MD have personally reviewed and interpreted this examination/study. > Interpreting Provider: Oliver Rosas MD on 04/09/2024 2:42 PM Narrative 04/09/2024 2:42 PM MANAGER LIFE PROCEDURE: US ABDOMEN LIMITED, DATE/TIME OF EXAM: 04/09/2024 11:03 AM, LOCATION [facility] INDICATION: K74.69: Other cirrhosis of liver [...] DATE/TIME OF EXAM: 04/09/2024 11:03 AM, LOCATION [facility] INDICATION: K74.69: Other cirrhosis of liver [...] of2 resultswithin the time period is included. [facility] WBC 9.8 4.0 - 10.7 x10E9/L 09/19/2023 4:07 PM T [facility] RBC Count 4.76 3.90 - 5.20 x10E12/L 09/19/2023 4:07 PM T [facility] Hemoglobin 13.6 11.9 - 15.8 g/dL 09/19/2023 4:07 PM T [facility] Hematocrit 41.1 34.8 - 46.1 % 09/19/2023 4:07 PM T [facility] MCV 86.3 80.0 - 98.0 fL 09/19/2023 4:07 PM T [facility] MCH 28.6 26.7 - 33.6 pg 09/19/2023 4:07 PM T [facility] MCHC 33.1 31.7 - 36.3 g/dL 09/19/2023 4:07 PM T [facility] RDW-CV 12.6 11.3 - 14.8 % 09/19/2023 4:07 PM [facility] Platelet Count 127(L) 150 - 420 x10E9/L 09/19/2023 4:07 PM T [facility] MPV 12.7(H) 7.8 - 11.4 fL 09/19/2023 4:07 PM [facility] Blood BLOOD SPECIMEN / Unknown Lab Venipuncture / Unknown 09/19/2023 3:44 PM CDT 09/19/2023 4:01 PM CDT Lazaro Gonzales MD LAB - HEMATOLOGY ORD ERABLES [facility] [address] [place] [address], [facility] [phone] * HEPATITIS B SURFACE ANTIBODY (09/19/2023 3:44 PM CDT) [facility] Hepatitis B Virus Surface Antibody Non-react ruel Non-react ruel 09/19/2023 5:23 PM CDT [facility] Comment: < 8 mIU/mL Hepatitis B surface Antibody (HBsAb). Nonreactive for HBsAb - individual is considered not immune to Hepatitis B Virus infection. Hepatitis B Surface Antibody Quantitative 0.0 <8.0 mIU/mL 09/19/2023 5:23 PM CDT [facility] Comment: Hepatitis B Surface Antibody Numeric Result Interpretation: Nonreactive: <8.0 mIU/mL Indeterminate: 8.0 - 12.0 mIU/mL Reactive: >12.0 mIU/mL Blood BLOOD SPECIMEN / Unknown Lab Venipuncture / Unknown 09/19/2023 3:44 PM CDT 09/19/2023 3:58 PM CDT Lazaro Gonzales MD LAB - CHEMISTRY DEBBI KHAN Performing Organization Address City/[facility]/ZIP Co de Phone Number [address] [address], [facility] [phone] * HEPATITIS B CORE ANTIBODY TOTAL (09/19/2023 3:44 PM CDT) HBc Antibody Total Non-reacti ve Non-reacti ve 09/19/2023 5:23 PM CDT [facility] Blood BLOOD SPECIMEN / Unknown Lab Venipuncture / Unknown 09/19/2023 3:44 PM CDT 09/19/2023 3:58 PM CDT Lazaro Gonzales MD LAB - CHEMISTRY DEBBI KHAN [address] [address], [place] [phone] * HEPATITIS B SURFACE ANTIGEN W RFLX CONFIRMATION (09/19/2023 3:44 PM CDT) Hepatitis B Virus Surface Antigen Non-reacti ve Non-reacti ve 09/19/2023 5:23 PM CDT [facility] Blood BLOOD SPECIMEN / Unknown Lab Venipuncture / Unknown 09/19/2023 3:44 PM CDT 09/19/2023 3:58 PM CDT Lazaro Gonzales MD LAB - CHEMISTRY DEBBI KHAN Performing Organization Address [facility]/ZIP Co de Phone Number [address] [address], [place] [phone] * IRON + TRANSFERRIN PANEL (09/19/2023 3:44 PM CDT) [facility] Iron 77 40 - 150 ug/dL 09/19/2023 5:05 PM CDT [facility] Transferrin 218 174 - 382 mg/dL 09/19/2023 5:05 PM CDT [facility] Transferrin Saturation % 28 16 - 50 % 09/19/2023 5:05 PM CDT [facility] TIBC Calculated 273 240 - 450 ug/dL 09/19/2023 5:05 PM CDT [facility] Blood BLOOD SPECIMEN / Unknown Lab Venipuncture / Unknown 09/19/2023 3:44 PM CDT 09/19/2023 3:58 PM CDT Lazaro Gonzales MD LAB - CHEMISTRY DEBBI KHAN Performing Organization Address [facility] Co de Phone Number [address] [address], [place] [phone] * HEPATITIS C ANTIBODY (09/19/2023 3:44 PM CDT) [facility] Hepatitis C Antibody Non-react ruel Non-reac tive 09/19/2023 5:23 PM CDT [facility] Comment:Hepatitis C Antibody screen indicates no [...] DEBBI KHAN Performing Organization Address [facility]/ZIP Co de Phone Number [facility] [address] [place] [address], [place] [phone] * (ABNORMAL) HEPATITIS A ANTIBODY (09/19/2023 3:44 PM CDT) [facility] Hepatitis A Virus Antibody Total Positive( A) Negative 09/21/2023 6:10 PM CDT [facility] Comment: The positive anti-HAV is consistent with recent or remote Hepatitis A infection or antibody response to HAV vaccination. False positive anti-HAV can occur. Performed By: [employer] [address] [place] [address] Credit Control Administrator: Buddy King MD, PhD CLIA Number: [id number] Blood BLOOD SPECIMEN / Unknown Lab Venipuncture / Unknown 09/19/2023 3:44 PM CDT 09/19/2023 3:58 PM CDT Lazaro Gonzales MD LAB - CHEMISTRY DEBBI KHAN Performing Organization Address [facility] Co de Phone Number [facility]) [address] [place] [phone] [place] [address] * (ABNORMAL) FERRITIN (09/19/2023 3:44 PM CDT) [facility] Ferritin 660(H) 13 - 204 ng/mL 09/19/2023 5:23 PM CDT [facility] Blood BLOOD SPECIMEN / Unknown Lab Venipuncture / Unknown 09/19/2023 3:44 PM CDT 09/19/2023 3:58 PM CDT Lazaro Gonzales MD LAB - CHEMISTRY DEBBI KHAN Performing Organization Address [facility]/ZIP Co de Phone Number [facility] [address] [place] [address], [place] [phone] * [place] LIVER ELASTOGRAPHY (09/19/2023 2:21 PM CDT) Narrative [...] patients with nonalcoholic fatty liver disease. Gastroenterology 2019;156:4679-9227. Brittani MS, Mackenzie R, Ta GUDINO, et [...] at-risk nonalcoholic steatohepatitis (PIMENTEL) in a [place] cohort and comparison to other non-invasive algorithms. PLoS ONE (2021) 17: [id number]. Mamie AJ, Lee J, Kareen ZM, et al. Enhanced diagnosis of advanced fibrosis and cirrhosis in individuals with NAFLD using FibroScan-based Agile scores. J Hepatol (2022) 78: 247-259. Fibroscan LSM can also be used with laboratory parameters without formulas to assess prognosis. According to the Baveno-VII criteria (Lockwood, 202), Fibroscan LSM ?15 kPa plus a platelet count of ?474d376/L rules out clinically significant portal hypertension (sensitivity [...] FIB-4 score (Ayline et al. Hepatology Communications 2019;3:9050-9862) or NAFLD Fibrosis score (Handy et al. Clinical Gastroenterology and Hepatology 2019;17:8291-4566 using routine clinical data. Note: 1. Fibroscan [...] additional interpretive data was last updated 10/08/22.) [email or web address] Lazaro Gonzales MD PROCEDURE/MINOR SURG ICAL ORDERABLES * DERMATOPATHOLOGY (01/03/2023 11:11 AM CDT) Only the most recent of5 resultswithin the time period is included. Case Report Dermatopathology Report Case: [id number] Authorizing Provider: Jyotsna Tineo DO Collected: 01/03/2023 11:11 AM Ordering Location: [facility] DermPath Lab Received: 01/03/2023 03:19 PM [...] of a non-oriented ellipse of skin measuring 43f18a6 mm. The epidermal surface is unremarkable. The [...] determined by the Dermatopathology Laboratory at [facility], directed by Dr. Blair Garcia. These tests need not be, and therefore are not, approved by the [place] Food and Drug Administration. The tests are used for clinical purposes. Billing Codes Specimen Charges Stain Charges 52416 1 3 5:22 PM CDT [facility] Embedded Images 3 5:22 PM CDT [facility] LAB[facility]ORY Pathology/Cytolo gy TISSUE SPECIMEN FROM SKIN / Unknown 01/03/2023 11:11 AM CDT 01/03/2023 3:19 PM CDT Jyotsna Tineo DO LAB - PATHOLOGY/C YTOLOGY ORDERABLES DERMATOPATHOLOGY LABORATORY [facility] - Department of Dermatology [address] [phone] * (ABNORMAL) HEMOGLOBIN A1C (03/30/2015 12:13 PM CDT) Only the most recent of5 resultswithin the time period is included. Hemoglobin A1c 7.4(H) 4.2 - 5.8 % 03/30/2015 10:32 PM CDT [facility] Estimated Average Glucose 166 mg/dL 03/30/2015 10:32 PM CDT [facility] Whole Blood BLOOD SPECIMEN WITH EDTA / Unknown Venipuncture / Unknown 03/30/2015 12:13 PM CDT 03/30/2015 12:21 PM CDT Narrative [facility] - 03/30/2015 10:32 PM CDT [place] [employer] recommended the following cutoff levels: [...] - CHEM ISTRY ORDERABLES Performing Organization Address City/State/[facility] Co de Phone Number [facility] [address] * (ABNORMAL) BASIC METABOLIC PANEL (CALCIUM TOTAL) (03/30/2015 12:13 PM CDT) Only the most recent of5 resultswithin the time period is included. [facility] Glucose 151(H) 70 - 125 mg/dL 03/30/2015 [...] >60 mL/min/1.7 3m2 03/30/2015 12:47 PM CDT [facility] eGFR by MDRD >60 >60 mL/min/1.7 3m2 03/30/2015 12:47 PM CDT [facility] Blood BLOOD SPECIMEN / Unknown Venipuncture / Unknown 03/30/2015 12:13 PM CDT 03/30/2015 12:21 PM CDT Ordering Provider Unlisted MD LAB - CHEM ISTRY ORDERABLES [facility] [address] * ALT (03/30/2015 12:13 PM CDT) Only the most recent of5 resultswithin the time period is included. Pathologist [facility] ALT 30 5 - 55 U/L 03/30/2015 12:47 PM CDT [facility] Blood BLOOD SPECIMEN / Unknown Venipuncture / Unknown 03/30/2015 12:13 PM CDT 03/30/2015 12:21 PM CDT Ordering Provider Unlisted MD LAB - CHEM ISTRY ORDERABLES Performing Organization Address City/[facility] de Phone Number [facility] [address] * (ABNORMAL) LIPID PROFILE (03/30/2015 12:13 PM CDT) Only the most recent of3 resultswithin the time period is included. Cholesterol 146 <200 mg/dL 03/30/2015 12:46 PM CDT [facility] Triglycerides 150(H) <150 mg/dL 03/30/2015 12:46 PM CDT [facility] HDL Cholesterol 34(L) >40 mg/dL 03/30/2015 12:46 PM CDT [facility] Chol HDL Ratio 4.3 1.0 - 6.0 03/30/2015 12:46 PM CDT [facility] LDL Calculated 82 65 - 130 mg/dL 03/30/2015 12:46 PM CDT AM LABORATORY VLDL Calculated 30 10 - 40 mg/dL 03/30/2015 12:46 PM CDT [facility] Blood BLOOD SPECIMEN / Unknown Venipuncture / Unknown 03/30/2015 12:13 PM CDT 03/30/2015 12:21 PM CDT [facility] - 03/30/2015 12:46 PM CDT Lipid [...] - CHEM ISTRY ORDERABLES [facility] [address] [place] [address], [place] * CARDIAC RHYTHM STRIP ORDER (08/12/2014 10:27 AM CDT) Narrative 08/12/2014 10:27 AM CDT Ordered by an unspecified provider. Scanned Document CARDIAC SERVICES ORD ERABLES * (ABNORMAL) GLUCOSE - POINT OF CARE (08/06/2014 11:32 AM MANAGER LIFE) Only the most recent of6 resultswithin the time period is included. Glucose WB/POC 251(H) 70 - 125 mg/dL 08/06/2014 1:41 PM MANAGER LIFE [facility] Blood BLOOD SPECIMEN / Unknown 08/06/2014 11:32 AM MANAGER LIFE 08/06/2014 1:41 PM MANAGER LIFE Narrative [facility] - 08/06/2014 1:41 PM MANAGER LIFE NOTIFIED CAREGIVER Francisca العراقي MD LAB - POINT OF CA RE ORDERABLES [facility] [address] * NM MYOCARD PERFUSION SPECT STRESS AND REST (08/06/2014 11:24 AM MANAGER LIFE) Anatomical Region Laterality Modality Chest Nuclear Medicine 08/06/2014 3:37 PM MANAGER LIFE Impressions 08/06/2014 6:21 PM MANAGER LIFE Mild myocardial ischemia felt to be present at the anterior wall and apex. No areas of myocardial infarction or additional areas of myocardial ischemia. Calculated LVEF of 82%. Phone call made to Luh Mccord informing her of preliminary report available in [facility] at hours on 08/06/2014. Narrative 08/06/2014 6:21 PM MANAGER LIFE GATED STRESS/REST SPECT MYOCARDIAL PERFUSION SCAN WITH [...] informing her of preliminary report available in [facility] at hours on 08/06/2014. Francisca العراقي MD NM ORDERABLES * US BREAST LEFT LTD (08/06/2014 8:00 AM MANAGER LIFE) Anatomical Region Laterality Modality Breast Left Ultrasound 08/06/2014 9:33 AM MANAGER LIFE Impressions 08/07/2014 5:09 PM MANAGER LIFE Hypoechoic lesion at lower-outer quadrant of left breast with internal echoes and some posterior acoustical enhancement with etiology uncertain. Comparison with known outside studies necessary as discussed above. BI-RADS Category 0. Report faxed to the office of Dr. Dk Kong at 12:10 p.m. on 08/07/2014. Call subsequently made to Renate Jin to confirm receipt of report. Narrative 08/07/2014 5:09 PM MANAGER LIFE LEFT BREAST SONOGRAPHY: (08/06/2014) HISTORY: History of breast cancer with postoperative change noted in left breast at 08/04/2014 CT angiography of chest. 3.7 x 3.3 cm thick-walled hypodense collection in lower-outer quadrant of left breast was noted at CT study. Followup imaging. FINDINGS: No other comparison studies available at this time. Patient has prior mammography and sonography studies of breasts in [place], [place] according to information provided by patient. [...] states she is due for mammogram in [place], [place] and plans to take study with [...] mammography and sonography studies of breasts in [place], [place] according to information provided by patient. [...] states she is due for mammogram in [place], [place] and plans to take study with [...] ORDERABLES * (ABNORMAL) PT-INR (08/06/2014 6:07 AM MANAGER LIFE) Only the most recent of8 resultswithin the time period is included. PT 20.1(H) 9.6 - 11.5 sec 08/06/2014 6:36 AM MANAGER LIFE [facility] INR 1.92(L) 2 - 3 08/06/2014 6:36 AM MANAGER LIFE [facility] Blood BLOOD SPECIMEN / Unknown Lab Venipuncture / Unknown 08/06/2014 6:07 AM MANAGER LIFE 08/06/2014 6:12 AM MANAGER LIFE Narrative [facility] - 08/06/2014 6:36 AM MANAGER LIFE Recommended therapeutic INR ranges for Oral Anticoagulant Therapy: 2.0-3.0 For prevention of Thrombosis or Embolism and treatment of Venous Thrombosis. 2.5- 3.5 for prevention of Recurrent Embolism or treatment of patients with Mechanical Prosthetic Heart Valves. rAley Ng MD LAB - COAGULATION OR DERABLES [facility] [address] [place] [address], [facility] * PHOSPHORUS BLOOD (08/06/2014 6:07 AM MANAGER LIFE) Phosphorus 3.82 2.3 - 4.7 mg/dL 08/06/2014 7:08 AM MANAGER LIFE [facility] Blood BLOOD SPECIMEN / Unknown Lab Venipuncture / Unknown 08/06/2014 6:07 AM MANAGER LIFE 08/06/2014 6:13 AM MANAGER LIFE Francisca العراقي MD LAB - CHEMISTRY O RDERABLES Performing Organization Address [facility]/ZIP Co de Phone Number [facility] [address] * (ABNORMAL) MAGNESIUM BLOOD (08/06/2014 6:07 AM MANAGER LIFE) Magnesium 1.4(L) 1.6 - 2.6 mg/dL 08/06/2014 7:08 AM MANAGER LIFE [facility] Blood BLOOD SPECIMEN / Unknown Lab Venipuncture / Unknown 08/06/2014 6:07 AM MANAGER LIFE 08/06/2014 6:13 AM MANAGER LIFE Francisca العراقي MD LAB - CHEMISTRY O YOLYERAAUTUMN Performing Organization Address [facility] Co de Phone Number [facility] [address] * TROPONIN I (08/05/2014 5:53 AM MANAGER LIFE) Only the most recent of6 resultswithin the time period is included. Troponin I <0.012 <=0.049 ng/mL 08/05/2014 7:44 AM MANAGER LIFE [facility] Blood BLOOD SPECIMEN / Unknown Lab Venipuncture / Unknown 08/05/2014 5:53 AM MANAGER LIFE 08/05/2014 6:56 AM MANAGER LIFE Narrative [facility] - 08/05/2014 7:44 AM MANAGER LIFE Note: Diagnosis of myocardial infarction requires symptoms [...] DEBBI KHAN Performing Organization Address [facility] Co de Phone Number [facility] [address] * LIPASE BLOOD (08/05/2014 5:53 AM MANAGER LIFE) Lipase 9 8 - 78 U/L 08/05/2014 7:37 AM MANAGER LIFE [facility] Blood BLOOD SPECIMEN / Unknown Lab Venipuncture / Unknown 08/05/2014 5:53 AM MANAGER LIFE 08/05/2014 6:56 AM MANAGER LIFE Arley Ng MD LAB - CHEMISTRY DEBBI KHAN Performing Organization Address City/[facility] Co de Phone Number [facility] [address] * TSH (08/05/2014 5:53 AM MANAGER LIFE) Pathologist [facility] TSH 1.0360 0.35 - 4.94 uIU/mL 08/05/2014 8:07 AM MANAGER LIFE [facility] Blood BLOOD SPECIMEN / Unknown Lab Venipuncture / Unknown 08/05/2014 5:53 AM MANAGER LIFE 08/05/2014 6:56 AM MANAGER LIFE Arley Ng MD LAB - CHEMISTRY DEBBI KHAN Performing Organization Address [facility] de Phone Number [facility] [address] * EKG 12-LEAD (08/05/2014 12:48 AM MANAGER LIFE) Only the most recent of5 resultswithin the time period is included. Ventricular Rate 69 BPM [facility] Atrial Rate 69 BPM [facility] P-R Interval 170 ms [facility] QRS Duration ms 78 ms [facility] Q-T Interval ms 446 ms [facility] QTC Calculation (Bezet) 477 ms [facility] Calculated P [place] 53 degrees [facility] Calculated R [place] -25 degrees [facility] Calculated T [place] 9 degrees [facility] Interpretation EKG Normal sinus rhythm Possible Inferior infarct , age undetermined Nonspecific T wave abnormality Anterolateral leads Abnormal ECG When compared with ECG of 04-AUG-2014 19:14, (Unconfirmed) Nonspecific T wave abnormality, worse in Anterolateral leads Confirmed by Sergio LAI, Carlos ([id number]) on 08/06/2014 3:22:34 PM [facility] 08/05/2014 12:4 8 AM MANAGER LIFE 08/06/2014 3:22 PM MANAGER LIFE Arley Ng MD ECG ORDERABLES [facility] * URINALYSIS ROUTINE W/REFLEX TO CULTURE (08/05/2014 12:11 AM MANAGER LIFE) Color UA Yellow 08/05/2014 12:25 AM [facility] Clarity UA Clear 08/05/2014 12:25 AM [facility] Glucose UA Negative Negative 08/05/2014 12:25 AM [facility] Bilirubin UA Negative Negative 08/05/2014 12:25 AM [facility] Ketone UA Negative Negative 08/05/2014 12:25 AM [facility] Specific [place] UA 1.010 1.005 - 1.030 08/05/2014 12:25 AM [facility] pH UA 5.5 5.0 - 8.0 pH 08/05/2014 12:25 AM [facility] Protein UA Negative Negative 08/05/2014 12:25 AM [facility] Urobilinogen UA 0.2 0.2 - 1.0 EU/dL 08/05/2014 12:25 AM [facility] Nitrite UA Negative Negative 08/05/2014 12:25 AM [facility] Blood UA Negative Negative 08/05/2014 12:25 AM [facility] Leukocyte UA Negative Negative 08/05/2014 12:25 AM [facility] Urine Microscopy Urine microscopy not indicated 08/05/2014 12:25 AM [facility] Reflex Status Culture not indicated 08/05/2014 12:25 AM [facility] Urine URINE SPECIMEN OBTAINED BY CLEAN CATCH PROCEDURE / Unknown 08/05/2014 12:11 AM MANAGER LIFE 08/05/2014 12:19 AM MANAGER LIFE Arley Ng MD LAB - URINALYSIS ORD ERABLES [facility] 1 [place] [address], [facility] * ECHOCARDIOGRAM 2D WITH DOPPLER (08/05/2014 12:00 AM MANAGER LIFE) 08/05/2014 Narrative [facility] - 08/05/2014 8:01 PM [facility] 1 [place] [address] Transthoracic Echocardiogram 2D, M-mode, Doppler, and Color Doppler Patient: JACKIE LANDIN MR #: [id number] : 1945 Age: 69 years Gender: Female Study date: 05-Aug-2014 Status: Outpatient Room: [address] [place] [address] HR: 70 bpm Height: 62 in Weight: 197.6 lb BSA: 1.9 m BP: 125/ 58 Ordering Physician: [facility] Hospitalist Referring Physician: Unlisted Revenue Accountant: [facility] Revenue Accountant: Carlos Hill MD Machine Gun Mechanic: Alejandra Negron RDCS Summary: - Left ventricle: [...] 20:07:43 Procedure Note Unknown, Provider - 08/05/2014 [facility] 1 [place] [address] Transthoracic Echocardiogram 2D, M-mode, Doppler, and Color Doppler Patient: JACKIE LANDIN MR #: [id number] : 1945 Age: 69 years Gender: Female Study date: 05-Aug-2014 Status: Outpatient Room: [address] [place] [address] HR: 70 bpm Height: 62 in Weight: 197.6 lb BSA: 1.9 m BP: 125/ 58 Ordering Physician: [facility]ist Referring Physician: Unlisted Revenue Accountant: [facility] Revenue Accountant: Carlos Hill MD Machine Gun Mechanic: Alejandra Negron RDCS Summary: - Left ventricle: [...] generated for this procedure were personally reviewedby ga. Prepared and Electronically Authenticated Carlos Hill MD 05-Aug-2014 20:07:43 Francisca العراقي MD ECHO ORDERABLES [facility] * CT ANGIO CHEST WITH OR WO CONTRAST [id number] (08/04/2014 7:30 PM MANAGER LIFE) Anatomical Region Laterality Modality Chest Computed Tomogra phy 08/04/2014 8:06 PM MANAGER LIFE Impressions 08/04/2014 9:07 PM MANAGER LIFE 1. No evidence of pulmonary embolism or [...] this study. Call made to Jackie Rudd, vulcanized fiber unit operator in the Emergency Department, who confirmed report available for review in [facility] at 2023 hours on 08/04/2014 with information given to provider. Narrative 08/04/2014 9:[address] ANGIOGRAPHY CHEST WITH INTRAVENOUS CONTRAST MATERIAL [...] this study. Call made to Jackie Rudd, vulcanized fiber unit operator in the Emergency Department, who confirmed report available for review in [facility] at 2023 hours on 08/04/2014 with information given to provider. Chato Stoll MD CT ORDERABLES * XR CHEST 1VW PORTABLE (08/04/2014 5:37 PM MANAGER LIFE) Only the most recent of2 resultswithin the time period is included. Anatomical Region Laterality Modality Chest Radiographic Gabriela ging 08/04/2014 6:00 PM MANAGER LIFE Impressions 08/04/2014 9:07 PM MANAGER LIFE 1. No gross acute cardiopulmonary disease. Chest appearance similar to 01/21/2014. 2. Mild cardiomegaly. Mild atherosclerotic aorta. No CHF. 3. No consolidation or large pleural effusion. No apparent pneumothorax. Old granulomatous disease. Narrative 08/04/2014 9:07 PM MANAGER LIFE PORTABLE CHEST RADIOGRAPH 08/04/2014: HISTORY: Shortness of [...] RDERABLES * LDL CHOLESTEROL (07/03/2014 12:39 PM MANAGER LIFE) Only the most recent of3 resultswithin the time period is included. LDL Direct 106 0 - 129 mg/dL 07/04/2014 11:50 AM MANAGER LIFE [facility] ([facility]) Comment: INTERPRETIVE INFORMATION: LDL Cholesterol, Direct CHD [...] intervals for this test in the [facility] Laboratory Test Directory ([employer]). Blood specimen (specimen) BLOOD SPECIMEN / Unknown Venipuncture / Unknown 07/03/2014 12:39 PM MANAGER LIFE 07/03/2014 12:54 PM MANAGER LIFE Dk Kong MD LAB - CHEMISTRY ORDParveen KHAN [facility] ([facility]) [address] [place], [place] [id number] [place] [address] * MICROALBUMIN URINE RANDOM (03/12/2014 11:04 AM CDT) Only the most recent of2 resultswithin the time period is included. Microalbumin Urine 20.0 0.0 - 20.0 mg/dL 03/12/2014 12:50 PM CDT [facility] Urine URINE / Unknown Venipuncture / Unknown 03/12/2014 11:04 AM CDT 03/12/2014 11:16 AM CDT Dk Kong MD LAB - URINE CHEMISTR Y ORDERABLES Performing Organization Address City/[facility] Co de Phone Number [facility] [address] * (ABNORMAL) PT PTT PANEL (01/21/2014 8:31 PM CDT) PT 20.3(H) 9.6 - 11.5 sec 01/21/2014 9:07 PM CDT [facility] INR 1.91(L) 2 - 3 01/21/2014 9:07 PM CDT [facility] PTT 31.5 24.0 - 32.0 sec 01/21/2014 9:07 PM CDT [facility] Blood BLOOD SPECIMEN / Unknown 01/21/2014 [...] Medina DO LAB - COAGULATION OR DERABLES [facility] [address] * (ABNORMAL) B-TYPE NATRIURETIC PEPTIDE (01/21/2014 8:31 PM CDT) BNP 134(H) 10 - 100 pg/mL 01/21/2014 9:26 PM CDT [facility] Blood BLOOD SPECIMEN / Unknown 01/21/2014 8:31 PM CDT 01/21/2014 8:45 PM CDT Narrative Authorizing Provider Result Lexy Medina DO LAB - CHEMISTRY ORDE RABLES Performing Organization Address [facility] Co de Phone Number [facility] [address] * MRI BREAST W/WO CONTRAST BILAT (11/10/2011 11:20 AM CDT) Anatomical Region Laterality Modality Breast Bilateral Magnetic Resonan ce 11/10/2011 2:06 PM CDT Narrative 11/10/2011 3:45 PM CDT MRI BILATERAL BREASTS WITH AND WITHOUT CONTRAST COMPUTER ANALYSIS WITH [employer] ON INDEPENDENT WORKSTATION INDICATION: Biopsy proven left breast 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 TECHNIQUE: Precontrast T1 and T2 weighted images with sequential contrast enhanced T1 weighted images of the breast. Standard MIPS were also obtained. 20 mL of Omniscan was injected intravenously. Analysis was performed with [employer] on independent workstation FINDINGS: Right breast: No [...] WITH AND WITHOUT CONTRAST COMPUTER ANALYSIS WITH [employer] ON INDEPENDENT WORKSTATION INDICATION: Biopsy proven left breast 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 TECHNIQUE: Precontrast T1 and T2 weighted images with sequential contrast enhanced T1 weighted images of the breast. Standard MIPS were also obtained. 20 mL of Omniscan was injected intravenously. Analysis was performed with [employer] on independent workstation FINDINGS: Right breast: No [...] 14 7 - 17 mg/dL [facility] Creatinine POCT 0.7 0.7 - 1.2 mg/dL [facility] POCT TESTING QC Verified yes Yes [facility] POC T TESTING Blood specimen (specimen) BLOOD SPECIMEN / Unknown 11/10/2011 10:13 AM CDT Dayanna Olsen DO LAB - POINT OF CARE ORDERABLES [facility] POCT TESTING [id number] [id number] * GROSS + MICRO EXAM (04/20/2010 8:00 AM MANAGER LIFE) Result CASE NUMBER [id number] Comment: ORDERING [...] similar to that seen in the mass. Director General portions are submitted for decalcification in A1. [...] The material is being sent to [facility] in consultation. Read by KITTY DAUGHERTY M.D. DIAGNOSIS SOFT TISSUES RIGHT MIDDLE FINGER BIOPSY - BENIGN-APPEARING CARTILAGINOUS LESION, SUGGESTIVE OF SOFT TISSUE CHONDROMA. *Comment The material was sent to [facility] in consultation. Please see the [facility] report and letter signed by Surjit Diaz M.D. RELEASED BY KITTY DAUGHERTY MD MISCELLANEOUS SAMPLES / Unknown 04/20/2010 8:00 AM MANAGER LIFE 04/20/2010 10:58 AM MANAGER LIFE Historical Provider LAB - PATHOLOGY/C YTOLOGY ORDERABLES Care Teams Mat Roller Relationship Specialty Start Date End Date Marie Matias MD [address] [place] [address] Internal Medicine 11/23/21
--- OUTSIDE RECORDS SUMMARY | 2024-08-19 10:50 | XMS_ITS | Continuity of Care Document ---
Author Organization [facility] Address [address] [place] [address] [address] [place] [address] Phone Care Team Providers Care Bladder Changer Name Role Phone Angel OD, Jr Unavailable Unavailable Procedures Procedure Date Office/outpatient Visit, Est Eye Exam, New Patient Advance Directives Directive Yes / No Effective Date File Name No Information Encounters Encounter Description Practice Location Reason(s) For Visit Diagnoses Date Provider Providers Copied on Encounter Office/outpat ient Visit, Est [facility], [address], [place], [place], [address], tel:[phone] [facility] No Information Sep-2 5-200 8 Angel OD Jr. [address] , [address], [place], [place], [facility], [place]. tel:[phone] [facility], [address] [place] [address] [address], [place], [place], [address], tel:[phone] [facility] No Information Sep-1 8-200 8 Angel OD Jr. [address] , [address], [place], [address], [place]. tel:[phone] Family History Family Member Type Diagnosis Age [...]
--- OUTSIDE RECORDS SUMMARY | 2024-08-19 10:50 | XMS_ITS | Clinical Summary ---
Author Organization [facility] Address [address] [place] [address] Care Team Providers Care Director Of Managed Care Name Role Phone Parveen Escobar MD Primary Care Provider [phone] Allergies Active Allergy Reactions Criticality Noted Date [...] 02/04/202408/2020 Insurance MEDICARE PART A AND B [facility] [id number] Member Subscriber Plan / Payer (Ef fective 2020-Present) Name:Jackie Waddell Relation to Subscriber:Self Name:Jackie Waddell Payer ID:[id number] (NAIC) Group ID:Not on file Type:Supplemental Address: [place] [id number] Care Teams Director Of Managed Care Relationship Specialty Start Date End Date Parveen Escobar MD [address] [place] [phone] PCP - General Internal Medicine 10/15/20
--- OUTSIDE RECORDS SUMMARY | 2024-08-19 10:50 | XMS_ITS | Encounter Summary ---
Author Organization [facility] Address [address] [place] [address] Care Team Providers Care Public Relations Professional Name Role Phone Marie Matias MD Unavailable [phone] Encounter Details Date Type Department Care Team (Late Contact Info) Description 11/22/2022 Lab Requisition [facility] - Derm[facility] Lab [address] [facility] [place] [address] Jyotsna Tineo, DO [address] [facility] [address]L [place] [address] Social History Tobacco Use Types Packs/Day Years [...] Info) Description 12/05/2024 11:00 AM CDT Appointment [facility] [address] [place] [phone] Lazaro Gonzales MD [address] [place] [phone] 12/05/2024 1:00 PM CDT Office Visit [facility] - GI [address] [facility] [place] [phone] Lazaro Gonzales MD [address] [place] [phone] documented as of this encounter Procedures Procedure Name Priority Date/Time Associated Diagnosis Comments DERMATOPATHOLOGY Routine 11/21/2022 1:39 PM CDT documented in this encounter Results * DERMATOPATHOLOGY (11/21/2022 1:39 PM CDT) Case Report Dermatopathology Report Case: [id number] Authorizing Provider: Jyotsna Tineo DO Collected: 11/21/2022 01:39 PM Ordering Location: [facility] Received: 11/22/2022 12:49 PM Pathologist: [...] characteristic determined by the Dermatopathology Laboratory at [facility], directed by Dr. Blair Garcia. These tests need not be, and therefore are not, approved by the [place] Food and Drug Administration. The tests are used for clinical purposes. Billing Codes Specimen Charges Stain Charges 00390 1 3 4:14 PM CDT [facility]Y LAB[facility] Embedded Images 3 4:14 PM CDT [facility]MATOP[facility]Y LABORATORY Pathology/Cytolo gy TISSUE SPECIMEN FROM SKIN / Unknown 11/21/2022 1:39 PM CDT 11/22/2022 12:49 PM CDT Jyotsna Tineo DO LAB - PATHOLOGY/C YTOLOGY ORDERABLES DERMATOPATHOLOGY LABORATORY [facility] - Department of Dermatology [facility] Medicine [address] [facility] [phone] documented in this encounter Visit Diagnoses Not on filedocumented in this encounter Care Teams Public Relations Professional Relationship Specialty Start Date End Date Marie Matias MD [address] [place] [address] Internal Medicine 11/23/21 documented as of this encounter
--- OUTSIDE RECORDS SUMMARY | 2024-08-19 10:50 | XMS_ITS | Clinical Summary ---
Author Organization [facility] [address] Address [address] [place] [address] Care Team Providers Care Stringing Machine Operator Name Role Phone Pinky Louise MD Unavailable [phone] Mackenzie Tobin NP Unavailable [phone] Loki Viramontes MD Unavailable [phone] Frank Moses MD Unavailable Nicole Sierra NP Primary Care Provider [phone] Allergies Active Allergy Reactions Criticality Noted Date [...] 1 tablet (3 mg total) by mouth entry level management before breakfast Active aspirin 325 mg tabletIndicati [...] 10/20/2022 Assessment & Plan (07/11/2024 3:34 PM HELIUM ARC WELDER): -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 as [...] (06/27/2022): Added automatically from request for surgery [id number] A-fib 02/14/2022 Assessment & Plan (10/11/2022 11:47 [...] admission exam. - Stopped sotalol of last - continue amiodarone 400mg TID, monitor daily [...] ophthalmology exams - Stopped sotalol of last - Plan for inpatient loading of amiodarone, [...] (07/11/2019): Added automatically from request for surgery [id number] Coronary artery disease invo lving [place] coronary artery of [place] heart without angina pectoris 11/19/2018 Angina pectoris, unstable 11/07/2018 Overview (11/07/2018): Added automatically from request for surgery [id number] GI bleed 08/06/2018 Assessment & Plan (08/29/2020 [...] a associated with type 2 diabetes mellitus ([facility]) 07/21/2015 Overview (09/09/2016): Type [...] fibrillation Assessment & Plan (07/11/2024 3:39 PM HELIUM ARC WELDER): -Persistent AF and bradycardia s/p dual chamber [...] EF 72%, fixed apical defect c/w prior [facility]. Assessment & Plan (08/28/2020 7:53 PM CDT): - TTE in 09/2018 w/ G3DD. Home metop XL 12.5, losartan 25, lasix 20. - PCI 2018 w/ 1 stent to LAD. MPI stress 05/2020 w/ EF 72%, fixed apical defect c/w prior [facility]. Essential hypertension 09/13/201910/20 Assessment & Plan (02/16/2022 [...] Department Care Team Description 08/11/2024 Orders Only [facility] [address] [place] [address] 8th [place] [address] [place] [address] Ignacio Obregon MD 08/02/2024 Results Follow-Up [place] [id number] [facility] Medical Office Building [address] [place] [address] Jyotsna Soto NP 08/02/2024 Orders Only [facility] CARDIOLOGY Jyotsna Soto NP 07/31/2024 Telephone [facility] Cardiology [address] [place] [address] [place] [phone] Maria Isabel Cesar MD 07/26/2024 10:00 AM HELIUM ARC WELDER Therapy [facility] Medical Office [facility] 1 OP Physical Therapy [address] [place] [address] [place] [phone] Vesna Lopez, PT Dizziness and giddiness (Primary Dx) 07/18/2024 10:15 AM HELIUM ARC WELDER Therapy [facility] Medical Office Bl 1 OP Physical Therapy [address] [place] [address] [place] [phone] Vesna Lopez, PT Dizziness and giddiness (Primary Dx) 07/18/2024 Telephone [facility] [address] [place] [address] Medicine 8th [place] [address] [place] [address] Ignacio Obregon MD 07/18/2024 Plan of Care Documentation [facility] Medical Office Bld[address] 1 OP Physical Therapy [address] [facility] [address] [place] [address] 07/11/2024 2:00 PM HELIUM ARC WELDER Office Visit [facility] [address] [facility] 8th [place] [address] [place] [address] Jyotsna Soto NP Longstanding persistent atrial fibrillation (HCC) (Primary Dx); S/P placement of cardiac pacemaker; Atrial fibrillation with RVR (HCC) 07/11/2024 1:30 PM HELIUM ARC WELDER Ancillary Procedure [facility] [address] [place] [address] 8th [place] [address] [place] [address] Sinus node dysfunction (HCC); Adjustment and management of cardiac pacemaker 07/04/2024 4:15 PM HELIUM ARC WELDER Telemedicine [facility] Otolaryngology [address] [place] [phone] Mehul Martinez II, MD Dizziness and giddiness (Primary Dx) 07/04/2024 1:00 PM HELIUM ARC WELDER Procedure visit [facility] Otolaryngology [address] [place] [phone] Deanna Galvez Dizziness and giddiness (Primary Dx) 07/04/2024 Telephone [facility] Otolaryngology [address] [place] [phone] Brie Vincent LPN Order vestibular rehab 06/20/2024 2:00 PM HELIUM ARC WELDER Office Visit [facility] Otolaryngology [address] [place] [phone] Mehul Martinez II, MD Sensorineural hearing loss (SNHL) of both ears (Primary Dx); Dizziness and giddiness 06/20/2024 1:45 PM HELIUM ARC WELDER Procedure visit [facility] Otolaryngology [address] [place] [phone] Deanna Galvez Dizziness and giddiness (Primary Dx); Sensorineural hearing loss (SNHL) of both ears; Tinnitus of both ears from Last 3 Months Immunizations Immunization Administration [...] often do you attend chur ch or lutheran services? Never 08/29/2022 Do you belong to [...] place to sleep or slept in a chcf (including now)? No 08/29/2022 Personal Safety Answer Date Recorded Have you ever been in or are you currently in a harmful physical or emotional relationship or is someone making you feel afraid or unsafe? Denies 10/10/2022 Comments No Sex and Gender Information Value Date Recorded Sex Assigned at Not on file Legal Sex Female 2:00 AM HELIUM ARC WELDER Gender Identity Not on file Sexual Orientation Not on file Obstetrics History Last Filed Vital Signs Vital Sign Reading Time Taken Comments Blood Pressure 106/64 04/22/2024 11:37 AM HELIUM ARC WELDER Pulse 91 07/11/2024 1:22 PM HELIUM ARC WELDER Temperature 36.7 C (98.1 F) 04/14/2023 8:56 AM HELIUM ARC WELDER Respiratory Rate 18 06/20/2024 1:50 PM HELIUM ARC WELDER Oxygen Saturation 95% 07/11/2024 1:22 PM HELIUM ARC WELDER Inhaled Oxygen Concentration - - Weight 73.3 kg (161 lb 9.6 oz) 07/11/2024 1:22 P M HELIUM ARC WELDER Height 157.5 cm (5' 2 ) 07/11/2024 1:22 PM HELIUM ARC WELDER Body Mass Index 29.56 07/11/2024 1:22 PM HELIUM ARC WELDER Plan of Treatment Health Maintenance Due Date Last Done Comments Albumin Creatinine Ratio, Urine 1945 Hepatitis C Screening 1945 Osteoporosis Screening-Bone Density Scan 1945 Dilated Eye Exam 1945 Foot Exam 1945 DTaP/Tdap/Td Vaccine (1 - Tdap) 1957 Pneumococcal vaccine 65+ (1 of 2 - PCV) 1965 Zoster Vaccine (1 of 2) 01/29/1996 Well Visit 65+ 2011 Hemoglobin A1C 02/28/2023 08/28/2022, 02/, 02/14/2022 Depression Screening 08/28/2023 08/27/2022 Fall Risk Assessment 10/11/2023 10/10/2022 eGFR 10/12/2023 10/11/2022, 05/08/2022, 08/31/2022, Additional history exists Covid-19 Vaccine (2023-2 5 season) 2024 09/08/2020, 07/08/2020 Influenza Vaccine (#1) 2024 Lipid Panel 04/22/2025 04/22/2024, 02/04, 02/15/2022, Additional history exists Hepatitis B Screening Completed 04/09/2024 Medical Devices Implanted Type Area Extractor Filler Device Identifier Shelf Expiration Date Model / Serial / Lot [employer] Inc [id number] System 6-12fr Mvp Venous Closure Vascade - [id number] Implanted:Qt y: 1 on 08/28/2020 by Crow Gramajo MD at [facility] Collagen Left: Femoral [employer] Inc 06/23/2022 [id number] / / [id number] Description:LFV sheath [employer] [id number] System 6-12fr Mvp Venous Closure Vascade - [id number] Implanted:Qt y: 1 on 08/28/2020 by Crow Gramajo MD at [facility] Collagen Right: Femoral [employer] 06/23/2022 [id number] / / [id number] Description:RFV sheath X 1 [employer] Inc Tendril Sts 6fr 52cm Is-1 Connector Active Fixation Bipolar Soft 2087tc/52 - [id number] - [id number] Implanted:Qt y: 1 on 10/10/2022 by Ignacio Obregon MD at [facility] Lead Right: Ventricle [employer] 08/02/20252087TC/52 / [id number] / [employer] Tendril Sts 6fr 46cm Is-1 Connector Bipolar Active Fixation /46 - [id number] - [id number] Implanted:Qt y: 1 on 10/10/2022 by Ignacio Obregon MD at [facility] Lead Right: Atria [employer] 08/02/2025 2088TC/46 / [id number] / [place] [employer] Joanne [id number] Device Closure Watchman Pebax Nitinol [place] Iridium Pet 24mm L75cm Od12 Fr [id number] Fr [address] Stopcock Y Adapter Self Expand Proximal Face Sterile Disposable Left Atrial Appendage - [id number] Implanted:Qt y: 1 on 08/28/2020 by Ignacio Obregon MD at [facility] Other - see comments Left: Heart [place] [employer] Joanne 03/23/2022 [id number] / / [id number] Description:Left atrial appe ndage closure device with delivery system [employer] Assurity Mri [id number] 2 Chamber Is-1 Connector Thk6mm Pacemaker [id number] - [id number] - [id number] Implanted:Qt y: 1 on 10/10/2022 by Ignacio Obregon MD at [facility] Pacemaker Right: Chest Wall [employer] 03/04/2024 [id number] / [id number] / [id number] Medtronic [employer] Inc X [id number] Resolute Stefano 3.5mm 2.1-2.7fr 18mm 140cm Rapid Exchange - [id number] Implanted:Qt y: 1 on 11/26/2018 by Ildefonso Barrios MD PhD at [facility] Stent Medtronic Inc 09/05/2020 [id number] / / [id number] [employer]iva [employer] Inc Vascade Mvp 6-12fr Venous Closure [id number] - [id number] - [id number] Implanted:Qt y: 1 on 10/10/2022 by Ignacio Obregon MD at [facility] Vascular Closure Device Right: Femoral Vein [employer] Inc 03/15/2024 [id number] / [id number] / [id number] Lens Bilateral: Eye Device Lizzy Watchman Procedure - [id number] Implanted:Qt y: 1 on 08/28/2020 by Ignacio Obregon MD at [facility] First Aid Shot Therapy [id number] 1-3 PC / / Procedures Procedure Name Priority Date/Time Associated Diagnosis Comments DEVICE CHECK - REMOTE Routine 08/11/2024 5:00 AM CDT CARDIOLOGY DOCUMENT SCAN 08/02/2024 11:20 AM HELIUM ARC WELDER DEVICE CHECK - IN OFFICE Routine 07/11/2024 1:13 PM HELIUM ARC WELDER Sinus node dysfunction (HCC) Adjustment and management of cardiac pacemaker POCT LIPID PANEL Routine 04/22/2024 11:4 3 AM HELIUM ARC WELDER Lipid screening EGFR Routine 10/11/2022 4:40 AM [...] estimate based on prior usage) Presenting Rhythm (NV) Atrial Fibrillation or Flutter Ventricular Sensing (VS) [...] estimate based on prior usage) Presenting Rhythm (NV) Atrial Fibrillation or Flutter Ventricular Sensing (VS) --- 50's to 90 Arrhythmic events (AE) Longstanding persistent atrial fibrillation and/or flutter Anticoagulation (AC) Patient is not on anticoagulant therapy Patient is status-post left atrial appendage occlusion device Transmission Information (TI) Device Summary Report Result [facility] Ignacio Obregon MD CV CARDIAC SERVICES PROCE DURES Final Result * Cardiology Document Scan (08/02/2024 11:20 AM HELIUM ARC WELDER) Anatomical Region Laterality Modality Other Jyotsna Soto NP CV CARDIAC SERVICES PROCE DURES Final Result * DEVICE CHECK - IN OFFICE (07/11/2024 1:13 PM HELIUM ARC WELDER) Anatomical Region Laterality Modality Other 07/11/2024 2:00 AM HELIUM ARC WELDER Narrative 07/12/2024 10:54 AM HELIUM ARC WELDER Interpretation Summary: Battery and Leads (BL) Normal [...] is status-post left atrial appendage occlusion device Result [facility] Ignacio Obregon MD CV CARDIAC SERVICES PROCE DURES Final Result * POCT lipid panel (04/22/2024 11:43 AM HELIUM ARC WELDER) Cholesterol, POC 119 mg/dL HDL, POC 35 mg/dL Triglycerides, POC 102 mg/dL LDL Cholesterol POC 64 mg/dL Chol/HDL Ratio, POC 1.9 Non-HDL Cholesterol, POC 85 mg/dL Cholesterol Total, POC 119 mg/dL Capillary blood 04/22/2024 1 1:43 AM HELIUM ARC WELDER Sindhu Patrick NP POINT OF CARE TEST ORDERA BLES Final Result * (ABNORMAL) eGFR (10/11/2022 4:40 AM CDT) eGFR 41(L) 90 - 130 mL/min/1. 73 m2 [facility] Comment: Interpretive Data Reference Interval [...] MD LAB BLOOD ORDERABLES Final R esult [facility] Department [place] [address] * (ABNORMAL) Hemoglobin A1c (08/28/2022 3:07 AM CDT) Hgb A1C 6.1(H) 4.0 - 5.6 % [facility] Estimated Average Glucose 128 mg/dL [facility] Comment: The ADA recommends reporting an estimated [...] MD LAB BLOOD ORDERABLES Final Re sult [facility] Department [place] [address] from Last 3 Months or Most Recently Relevant to Health Maintenance Insurance MEDICARE [facility] MEDICARE AAR MEDICARE [facility] MEDICARE MEDICARE MEDICARE [facility] Advance Directives For more information, please contact: [phone] * Full Code (Latest Code Status on [...] 4:14 AM 11/07/2020 6:56 PM Care Teams Stringing Machine Operator Relationship Specialty Start Date End Date Nicole Sierra NP [address] [place] [address] PCP - General Nurse Practitioner 07/20/23 Pinky Louise MD Consulting Physician Gastroenterology 10/02/18 Mackenzie Tobin NP [address] [place] [address] Nurse Practitioner Medical Oncology 02/09/22 [place] [address] [place] [address] Consulting Physician Urology 08/06/22 [place] [address] [place] [address] Consulting Physician Cardiology 08/06/22
--- NOTE | 2024-08-20 10:01 | WPDPFTINT ---
PFT Procedure Performed PFT Procedure Performed Spirometry with Pre/Post Bronchodilator Plethysmography (Lung Vol) Diffusing Cap (DLCO) Flow Vol Loop PFT Interpretation Lung volumes were measured with the body plethysmography method. The diminished lung volumes are indicative of a restrictive respiratory disease. Spirometry showed normal expiratory flow rates and a normal FEV1 to FVC ratio 69%. Following administration of a bronchodilator there was no significant increase in expiratory flow rates. Lung diffusion capacity is borderline normal at 66% predicted. The flow volume loop is unremarkable. Impression: Mild restrictive respiratory disease. Borderline normal lung diffusion capacity.
--- NOTE | 2024-08-20 10:06 | WPDSIXMINUTE ---
Six Minute Walk Procedure Procedure Performed Pulmonary Stress Test (6 min walk) Six Minute Walk Six Minute Walk: This 6 minute walk test was conducted with the patient breathing ambient air. The pre-walk baseline oxyhemoglobin saturation was 96%. The patient walked 274 m with with one brief pause due to shortness of breath recorded during testing. During the walk the oxyhemoglobin saturation remained in the range of 96% to 97%. Impression: No evidence of oxyhemoglobin desaturation on this testing.
== END 2024-08-19 09:44 | disposition home or self-care (01) ==
LOC: ANHPFT 09:44
PROVIDERS: Visit Provider Internal Medicine Critical Care Medicine
DX: R06.09 Other forms of dyspnea (principal); R94.2 Abnormal results of pulmonary function studies
CPT/HCPCS: 94060; 94618; 94726; 94729

== ENCOUNTER 2024-12-24 08:49 | Outpatient (CLI) | payer MEDICARE, SELFPAY ==
[2024-12-04 09:32] VITALS: BMI 29.0
--- NOTE | 2024-12-04 09:33 | PC.NURSE ---
Addendum entered by Emily Russell RN 12/13/24 09:52: PT called and verified new date and time of procedure on 12/24/24 here at 0900 for 1100am procedure, She is to HOLD her ASA for 7 days last dose on 12/15/24 all other instructions explained and questions answered , Pt aware of all and will see us on 12/24/24 . SAMANTHA Original Note: Pre Radiology instructions Report to the outpatient [place] on date _12/12/24____ at time __09:00am for procedure Time: _11:00am___ YOU MAY BE MONITORED AT HOSPITAL FOR UP TO 4 HOURS AFTER YOUR PROCEDURE. A visitor will be allowed to accompany the patient into the hospital. You and your visitor will be asked to self-screen and do not enter if you have any COVID symptoms. A mask is OPTIONAL within the hospital. Patients are to have no food or drink 6 hours prior to procedure time Driving will be restricted after the procedure, you must have a person to drive you home. Labs will be drawn in preop area and once reviewed, you will be taken to radiology area for procedure. When the procedure is completed, you will be taken to outpatient where you will be monitored for several hours. You may have one visitor in this area. Other than holding anti-coagulants, patient may take other medication(s) as scheduled. Prior to your appointment date patients are instructed to hold anti-coagulants after discussing with ordering provider to stop. If unable to discontinue anti-coagulants please notify radiologist. ? No aspirin or warfarin (Coumadin) for 7 days prior to the procedure. ? No clopidogrel (Plavix), ticagrelor (Brilinta), prasugrel (Effient) or dabigatran (Pradaxa) for 5 days prior to the procedure. ? No rivaroxaban (Xarelto), apixaban (Eliquis), dipyridamole (Aggrenox or Persantine) or cilostazol (Pletal) for 2 days prior to the procedure. Medications to discontinue per physician: __Aspirin Date to take last dose: ____12/03/24 Please leave all valuables, including medications, at home the day of procedure. The hospital will not accept responsibility for valuables. Wear comfortable, loose fitting clothing.? Follow any additional instructions given to you from ordering provider. Telephone instructions given to __Patient and asked if any additional questions and then verbalized understanding. Patient advised to call scheduling provider office or registration scheduling [phone] if any additional questions.
--- OUTSIDE RECORDS SUMMARY | 2024-12-24 08:53 | XMS_ITS | Continuity of Care Document ---
Author Organization [facility] Address [address] [place] [address] [address] [place] [address] Phone Care Team Providers Care Visual Merchandising Coordinator Name Role Phone Angel OD, Jr Unavailable Unavailable Procedures Procedure Date Office/outpatient Visit, Est Eye Exam, New Patient Advance Directives Directive Yes / No Effective Date File Name No Information Encounters Encounter Description Practice Location Reason(s) For Visit Diagnoses Date Provider Providers Copied on Encounter Office/outpat ient Visit, Est [facility], [address], [place], [place], [id number], tel:[phone] [address] [facility] No Information Sep-2 5-200 8 Angel OD Jr. [address] , [address], [place], [place], [facility], [place]. tel:[phone] [facility], [address] [place] [address] [address], [place], [place], [id number], tel:[phone] [facility] No Information Sep-1 8-200 8 Angel OD Jr. [address] , [address], [place], [address], [place]. tel:[phone] Family History Family Member Type Diagnosis Age [...]
--- OUTSIDE RECORDS SUMMARY | 2024-12-24 08:53 | XMS_ITS | Encounter Summary ---
Author Organization [facility] Address [address] [facility] [place] [address] Care Team Providers Care Cellular Tower Climber Name Role Phone Marie Matias MD Unavailable [phone] Provider, No Pcp Primary Care Provider Unavailab le Encounter Details Date Type Department Care Team (Late st Contact Info) Description 01/03/2023 Lab Requisition [facility] [address] [facility], [place] [address] Jyotsna Tineo, [address] [facility] 3[address] [place]PT [place] [address] Social History Tobacco Use Types Packs/Day Years Used Date Smoking Tobacco: Never Smokeless Tobacco: Never Alcohol Use Standard Drinks/Week Comments No 0 (1 standard drink = 0.6 oz pur e alcohol) Comments Unknown Sex and Gender Information Value Date Recorded Sex Assigned at Not on file Legal Sex Female 5:48 AM POWERHOUSE LABORER Gender Identity Not on file Sexual Orientation Not on file documented as of this encounter Functional Status * Is person deaf or have serious hearing difficulty? Answer Date of Assessment Author No 08/06/2014 2:19 PM Erika Canela RN * Is person blind or have serious difficulty seeing? Answer Date of Assessment Author No 08/06/2014 2:19 PM Erika Canela RN * Does person have serious difficulty walking/climbing stairs? Answer Date of Assessment Author No 08/06/2014 2:19 PM Erika Canela RN * Does person have difficulty dressing/bathing? Answer Date of Assessment Author No 08/06/2014 2:19 PM Erika Canela RN * Does person have difficulty doing errands alone? Answer Date of Assessment Author No 08/06/2014 2:19 PM POWERHOUSE LABORER Erika Thornton, RN documented as of this encounter Mental Status * Does person have difficulty concentrating/remembering/making decisions? Answer Entry Date Author No 08/06/2014 2:19 PM POWERHOUSE LABORER Erika Thornton, RN documented in this encounter Plan of Treatment Upcoming Encounters Date Type Department Care Team (Late st Contact Info) Description 06/26/2025 10:15 AM POWERHOUSE LABORER [address] [facility] [address] [place] [phone] Lazaro Gonzales MD [address] [place] [phone] 06/26/2025 11:30 AM POWERHOUSE LABORER Office Visit [facility] - [address] [facility] [place] [address] Lazaro Gonzales MD [address] [place] [phone] documented as of this encounter Procedures Procedure Name Priority Date/Time Associated Diagnosis Comments DERMATOPATHOLOGY Routine 01/03/2023 11:1 1 AM CDT documented in this encounter Results * DERMATOPATHOLOGY (01/03/2023 11:11 AM CDT) Case Report Dermatopathology Report Case: [id number] Authorizing Provider: Jyotsna Tineo DO Collected: 01/03/2023 11:11 AM Ordering Location: [facility] Derm[facility] Lab Received: 01/03/2023 03:19 PM Pathologist: Shaunna Garcia MD Specimen: Skin, left forearm 5:22 PM CDT DERMATOPATHOLOGY LABORATORY Final Diagnosis Specimen A. 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 The specimen consists of a non-oriented ellipse of skin measuring 28t88k8 mm. The epidermal surface is unremarkable. The margin is inked green. The 12 o'clock and 6 o'clock tips are submitted in cassette 1. The remainder of the ellipse is serially sectioned and submitted in cassette 2-3. Jar 0. 3 5:22 PM [facility] DERMATOPATHOLOGY LABORATORY Microscopic Description Specimen A. [...] to the skin surface. 3 5:22 PM T DERMATOPATHOLOGY LABORATORY Disclaimer An [...] purposes. Billing Codes Specimen Charges Stain Charges 36890 1 3 5:22 PM CDT DERMATOPATHOLOGY LABORATORY Embedded Images 3 5:22 PM CDT DERMATOPATHOLOGY LABORATORY Pathology/Cytolo gy TISSUE SPECIMEN FROM SKIN / Unknown 01/03/2023 11:11 AM CDT 01/03/2023 3:19 PM CDT us Jyotsna Tineo DO LAB - PATHOLOGY/CYTOLOGY ORDERABLES Final Result DERMATOPATHOLOGY LABORATORY [facility] - Department of Dermatology [address], [address] [phone] documented in this encounter Visit Diagnoses Not on filedocumented in this encounter Care Teams Cellular Tower Climber Relationship Specialty Start Date End Date Provider, No Pcp PCP - General 12/03/24 Marie Matias MD [address] [place] [address] Internal Medicine 11/23/21 documented as of this encounter
--- OUTSIDE RECORDS SUMMARY | 2024-12-24 08:53 | XMS_ITS | Encounter Summary ---
Author Organization [facility] Address [address] [facility] [place] [address] Care Team Providers Care Mechanical Systems Engineer Name Role Phone Marie Matias MD Unavailable [phone] Provider, No Pcp Primary Care Provider Unavailab le Encounter Details Date Type Department Care Team (Late st Contact Info) Description 10/15/2024 Lab Requisition [facility] DermPath Lab [address] [facility] [place] [address] Jyotsna Tineo, [address] [facility] 3L [place] [address] Social History Tobacco Use Types Packs/Day Years Used Date Smoking Tobacco: Never Smokeless Tobacco: Never Alcohol Use Standard Drinks/Week Comments No 0 (1 standard drink = 0.6 oz pur e alcohol) Comments Unknown Sex and Gender Information Value Date Recorded Sex Assigned at Not on file Legal Sex Female 5:48 AM TELEVISION AND RADIO REPAIRER Gender Identity Not on file Sexual Orientation [...] of Assessment Author No 08/06/2014 2:19 PM TELEVISION AND RADIO REPAIRER Erika Thornton, RN documented as of this encounter Mental Status * Does person have difficulty concentrating/remembering/making decisions? Answer Entry Date Author No 08/06/2014 2:19 PM TELEVISION AND RADIO REPAIRER Erika Thornton, RN documented in this encounter Plan of Treatment Upcoming Encounters Date Type Department Care Team (Late st Contact Info) Description 06/26/2025 10:15 AM TELEVISION AND RADIO REPAIRER Appointment [facility] [address] [place] [phone] Lazaro Gonzales MD [address] [place] [address] 06/26/2025 11:30 AM TELEVISION AND RADIO REPAIRER Office Visit [facility] - [address] [facility] [place] [address] Lazaro Gonzales MD [address] [place] [address] documented as of this encounter Goals Goal Patient Goal Type Associated Problems Recent Progress Patient-Stated? Author Medication Management General On track( 025 1:35 PM CDT) No Lizzie Valente, ROSELINE Note: Expected end date: ongoing Interventions: Take all medications as prescribed documented as of this encounter Procedures Procedure Name Priority Date/Time Associated Diagnosis Comments DERMATOPATHOLOGY Routine 10/15/2024 10:2 5 AM CDT documented in this encounter Results * DERMATOPATHOLOGY (10/15/2024 10:25 AM CDT) Case Report Dermatopathology Report Case: [id number] Authorizing Provider: Jyotsna Tineo DO Collected: 10/15/2024 10:25 AM Ordering Location: [facility] - Received: 10/16/2024 07:34 AM DermPath Lab Pathologist: Shaunna Garcia MD Specimen: Skin, left hand 4:28 PM CDT DERMATOPATHOLOGY LABORATORY Final Diagnosis Specimen A. 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 The specimen consists of a shave biopsy measuring 8x7x1 mm. Jar 0. 4:28 PM CDT DERMATOPATHOLOGY LABORATORY Microscopic Description Specimen A. SKIN, left hand: The epidermis shows parakeratosis, full thickness disorderly maturation of keratinocytes, mitoses at different levels, and dyskeratotic cells. 4:28 PM CDT DERMATOPATHOLOGY LABORATORY Disclaimer An external [...] purposes. Billing Codes Specimen Charges Stain Charges 96162 1 4:28 PM CDT DERMATOPATHOLOGY LABORATORY Embedded Images 4:28 PM CDT DERMATOPATHOLOGY LABORATORY Pathology/Cytolo gy TISSUE SPECIMEN FROM SKIN / Unknown 10/15/2024 10:25 AM CDT 10/16/2024 7:34 AM CDT us Jyotsna Tineo DO LAB - PATHOLOGY/CYTOLOGY ORDERABLES Final Result DERMATOPATHOLOGY LABORATORY [facility] - Department of Dermatology [address], [address] [phone] documented in this encounter Visit Diagnoses Not on filedocumented in this encounter Care Teams Mechanical Systems Engineer Relationship Specialty Start Date End Date Provider, No Pcp PCP - General 7/1/25 Marie Matias MD [address] [place] [address] Internal Medicine 11/23/21 documented as of this encounter
--- OUTSIDE RECORDS SUMMARY | 2024-12-24 08:53 | XMS_ITS | Clinical Summary ---
Author Organization [facility] Address [address] [place] [address] Care Team Providers Care Pattern Illustrator Name Role Phone Unavailable Primary Care Provider [...] Td Vaccines ( 1 - Tdap) 1965 Pneumococcal Vaccine: 50+ Years (1 of 1 - PCV) 01/29/1996 Zoster Vaccines (1 of 2) 01/29/1996 Dexa Scan (General) 2011 RSV Immunization or 60+ Years (1 - 1-dose 75+ series) 2021 COVID-19 Vaccine (3 - 2023-2 5 season) 2024 09/08/2020, 07/08/2020 Meningococcal B Vaccine Aged Out No l onger eligible based on patient's age to complete this topic Meningococcal Vaccine Aged Out No kurt geremias eligible based on patient's age to complete this topic RSV Immunizations Under 20 Months Aged Out No longer eligible b ased on patient's age to complete this topic
--- OUTSIDE RECORDS SUMMARY | 2024-12-24 08:53 | XMS_ITS | Referral Summary ---
Author Organization [address] [facility] [address] [place] [address] Care Team Providers Care Tapper Supervisor Name Role Phone Pinky Louise MD Unavailable [phone] Mackenzie Tobin NP Unavailable [phone] Loki Viramontes MD Unavailable [phone] Frank Moses MD Unavailable Nicole Sierra NP Primary Care Provider [phone] Encounters Date Type Department Care Team Description 11/11/2024 Orders Only [facility] Cardiology [address] [facility] 8th [place] [address] [place] [address] Ignacio Obregon MD 10/03/2024 3:00 PM CDT Office Visit [facility] Cardiology [address] [facility] [address] [place] [address] Maria Isabel Cesar MD 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 (Primary Dx); Edema, lower extremity; Mixed diabetic hyperlipidemia associated with type 2 diabetes mellitus (CMS/HCC) (HCC); Longstanding persistent atrial fibrillation (HCC); Presence of Watchman left atrial appendage closure device; S/P placement of cardiac pacemaker from Last 3 Months Allergies Active Allergy Reactions Criticality Noted Date Comments Adhesive Rash,Redness Medium 11/26/2018 Paper tape only pre patient Medications coenzyme Q10 200 mg capsuleIndicati ons:supplement Take 1 capsule (200 mg total) by mouth every morning supplement Active polycarbophil (FIBERCON) 625 mg tabletIndicatio ns:constipation Take 2 tablets (1,250 mg total) by mouth 2 (two) times a day Active OneTouch Ultra2 Meter misc USE TO TEST THREE TIMES DAILY 1 Active OneTouch Delica Plus Lancet 30 gauge misc 3 (three) times a day 1 Active ascorbic acid (VITAMIN C ORAL)Indication s:supplement Take 1 tablet by mouth every morning Active semaglutide (RYBELSUS) 3 mg tabletIndicatio ns:type 2 diabetes mellitus Take 1 tablet (3 mg total) by mouth anthropology department chair before breakfast Active aspirin 325 mg tabletIndicatio ns:prevention of thrombosis Take 1 tablet (325 mg total) by mouth every morning Active omega-3 fatty acids-fish oil (Fish OiL) 360-1,200 mg capsule Take 1 tablet by mouth every morning 2 03/07/[address] (PROTONIX) 40 mg EC tabletIndicatio ns:Treatment of Non-Bleeding Gastric Disorder Take 1 tablet (40 mg total) by mouth daily 2 Active multivitamin capsuleIndicati ons:Vitamin Deficiency Prevention Take 1 capsule by mouth every morning Active acidophilus-pec tin, citrus 100 million cell-10 mg capsuleIndicati ons:supplement- gut health Take 1 tablet by mouth every morning Active ferrous sulfate 325 mg (65 mg of elemental iron) tabletIndicatio ns:Iron Deficiency Anemia Take 1 tablet (325 mg total) by mouth 2 (two) times a day with meals Active Jardiance 10 mg tablet TAKE 1 TABLET BY MOUTH EVERY DAY 90 tablet 3 4 Active furosemide (LASIX) 40 mg tabletIndicatio ns:Edema, lower extremity Take 1 tablet (40 mg total) by mouth daily 90 tablet 3 5 Active atorvastatin (LIPITOR) 40 mg tablet Take 1 tablet (40 mg total) by mouth daily 90 tablet 3 5 Active carvediloL (COREG) 25 mg tablet TAKE 1 TABLET(25 MG) BY MOUTH TWICE DAILY WITH MEALS 180 tablet 3 5 Active Active Problems Problem Noted Date Diagnosed Date Sensorineural hearing loss (SNHL) of both ears 0 06/20/2024 Dizziness and giddiness 06/20/2024 S/P placement of cardiac pacemaker 10/20/2022 Assessment & Plan (07/11/2024 3:34 PM LIBRARY SERVICES COORDINATOR): -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 as [...] (06/27/2022): Added automatically from request for surgery [id number] A-fib 02/14/2022 Assessment & Plan (10/11/2022 11:47 [...] (07/11/2019): Added automatically from request for surgery [id number] Coronary artery disease invo lving jamestown coronary artery of [place] heart without angina pectoris 11/19/2018 Angina pectoris, unstable 11/07/2018 Overview (11/07/2018): Added automatically from request for surgery [id number] GI bleed 08/06/2018 Assessment & Plan (08/29/2020 [...] left breast in female, estrogen receptor positive ([facility]) 07/21/2015 Overview (09/09/2016): Malignant neoplasm of female [...] a associated with type 2 diabetes mellitus ([facility]) 07/21/2015 Overview (09/09/2016): Type 2 [...] fibrillation Assessment & Plan (07/11/2024 3:39 PM LIBRARY SERVICES COORDINATOR): -Persistent AF and bradycardia s/p dual chamber [...] EF 72%, fixed apical defect c/w prior ME. Assessment & Plan (08/28/2020 7:53 PM CDT): - TTE in 09/2018 w/ G3DD. Home metop XL 12.5, losartan 25, lasix 20. - PCI 2018 w/ 1 stent to LAD. MPI stress 05/2020 w/ EF 72%, fixed apical defect c/w prior ME. Essential hypertension 09/13/201910/20 Assessment & Plan (02/16/2022 [...] place to sleep or slept in a halfway (including now)? No 08/29/2022 Personal Safety Answer Date Recorded Have you ever been in or are you currently in a harmful physical or emotional relationship or is someone making you feel afraid or unsafe? Denies 10/10/2022 Comments No Sex and Gender Information Value Date Recorded Sex Assigned at Not on file Legal Sex Female 2:00 AM LIBRARY SERVICES COORDINATOR Gender Identity Not on file Sexual Orientation Not on file Last Filed Vital Signs Vital Sign Reading Time Taken Comments Blood Pressure 106/56 10/03/2024 3:04 PM CDT Pulse 82 10/03/2024 3:04 PM CDT Temperature 36.7 C (98.1 F) 04/14/2023 8:56 AM LIBRARY SERVICES COORDINATOR Respiratory Rate 18 06/20/2024 1:50 PM LIBRARY SERVICES COORDINATOR Oxygen Saturation 94% 10/03/2024 3:04 PM CDT Inhaled Oxygen Concentration - - Weight 72.1 kg (159 lb) 10/03/2024 3:04 PM CDT Height 157.5 cm (5' 2) 10/03/2024 3:04 PM CDT Body Mass Index 29.08 10/03/2024 3:04 PM CDT Plan of Treatment Not on file Medical Devices Implanted Type Area Collect On Delivery Clerk Device Identifier Shelf Expiration Date Model / Serial / Lot [employer] [id number] System 6-12fr Mvp Venous Closure Vascade - [id number] Implanted:Qt y: 1 on 08/28/2020 by Crow Gramajo MD at [facility] Collagen Left: Femoral [employer] 06/23/2022 [id number] / / [id number] Description:LFV sheath [employer] [id number] System 6-12fr Mvp Venous Closure Vascade - [id number] Implanted:Qt y: 1 on 08/28/2020 by Crow Gramajo MD at [facility] Collagen Right: Femoral [employer] 06/23/2022 [id number] / / [id number] Description:RFV sheath X 1 [employer] Tendril Sts 6fr 52cm Is-1 Connector Active Fixation Bipolar Soft 2087tc/52 - [id number] - [id number] Implanted:Qt y: 1 on 10/10/2022 by Ignacio Obregon MD at [facility] Lead Right: Ventricle [employer] 08/02/20258TC/52 / [id number] / [employer] Tendril Sts 6fr 46cm Is-1 Connector Bipolar Active Fixation - [id number] - [id number] Implanted:Qt y: 1 on 10/10/2022 by Ignacio Obregon MD at [facility] Lead Right: Atria [employer] 08/02/2025 / [id number] / [employer] Joanne [id number] Device Closure Watchman Pebax Nitinol [place] Iridium Pet 24mm L75cm Od12 Fr [id number] Fr [address] Stopcock Y Adapter Self Expand Proximal Face Sterile Disposable Left Atrial Appendage - [id number] Implanted:Qt y: 1 on 08/28/2020 by Ignacio Obregon MD at [facility] Other - see comments Left: Heart [employer] Joanne 03/23/2022 [id number] / / [id number] Description:Left atrial appe ndage closure device with delivery system [employer] Assurity Mri [id number] 2 Chamber Is-1 Connector Thk6mm Pacemaker [id number] - [id number] - [id number] Implanted:Qt y: 1 on 10/10/2022 by Ignacio Obregon MD at [facility] Pacemaker Right: Chest Wall [employer] 03/04/2024 [id number] / [id number] / [id number] [employer] X [id number] Resolute Constable 3.5mm 2.1-2.7fr 18mm 140cm Rapid Exchange - [id number] Implanted:Qt y: 1 on 11/26/2018 by Ildefonso Barrios MD PhD at [facility] Stent Medtronic Inc 09/05/2020 [id number] / / [id number] [employer] Vascade Mvp 6-12fr Venous Closure [id number] - [id number] - [id number] Implanted:Qt y: 1 on 10/10/2022 by Ignacio Obregon MD at [facility] Vascular Closure Device Right: Femoral Vein [employer] 03/15/2024 [id number] / [id number] / [id number] Lens Bilateral: Eye Device Lizzy Watchman Procedure - [id number] Implanted:Qt y: 1 on 08/28/2020 by Ignacio Obregon MD at [facility] [employer] [facility] [id number] 1-3 PC / / Procedures Procedure Name Priority Date/Time Associated Diagnosis Comments DEVICE CHECK - REMOTE Routine 11/11/2024 4:00 AM CDT POCT LIPID PANEL Routine 04/22/2024 11:4 3 AM LIBRARY SERVICES COORDINATOR Lipid screening EGFR Routine 10/11/2022 4:40 AM CDT HEMOGLOBIN A1C STAT 08/28/2022 3:07 AM CDT from Last 3 Months or Most Recently Relevant to Health Maintenance Results * DEVICE CHECK - REMOTE (11/11/2024 4:00 AM CDT) Anatomical Region Laterality Modality Other 11/11/2024 4:00 AM CDT Narrative 11/11/2024 9:40 AM CDT Interpretation Summary: Battery and Leads (BL) Normal parameters noted on battery and lead(s) --- 5.4-8.8 years remaining (this is an estimate based on prior usage) Presenting Rhythm (WY) Ventricular Sensing (VS) --- rate 60-100 Atrial Fibrillation or Flutter Arrhythmic events (AE) Longstanding persistent atrial fibrillation and/or flutter --- AT/AF burden: 100%. V rates > 110 bpm: 17% of the time during AF Anticoagulation (AC) Patient is status-post left atrial appendage occlusion device Patient is not on anticoagulant therapy Transmission Information (TI) Device Summary Report Procedure Note Ignacio Obregon MD - 11/11/2024 Interpretation Summary: Battery and Leads (BL) Normal parameters noted on battery and lead(s) --- 5.4-8.8 yearsremaining (this is an estimate based on prior usage) Presenting Rhythm ([place]Y) Ventricular Sensing (VS) --- rate 60-100 Atrial Fibrillation or Flutter Arrhythmic events (AE) Longstanding persistent atrial fibrillation and/or flutter --- AT/AFburden: 100%. V rates > 110 bpm: 17% of the time during AF Anticoagulation (AC) Patient is status-post left atrial appendage occlusion device Patient is not on anticoagulant therapy Transmission Information (TI) Device Summary Report Ignacio Obregon MD [facility] LINA HDEZ Final Result * POCT lipid panel (04/22/2024 11:43 AM LIBRARY SERVICES COORDINATOR) Cholesterol, POC 119 mg/dL HDL, POC 35 mg/dL Triglycerides, POC 102 mg/dL LDL Cholesterol POC 64 mg/dL Chol/HDL Ratio, POC 1.9 Non-HDL Cholesterol, POC 85 mg/dL Cholesterol Total, POC 119 mg/dL Capillary blood 04/22/2024 1 1:43 AM LIBRARY SERVICES COORDINATOR Sindhu Patrick NP POINT OF CARE TEST ORDERA BLES Final Result * (ABNORMAL) eGFR (10/11/2022 4:40 AM CDT) eGFR 41(L) 90 - 130 mL/min/1. 73 m2 LIZZIE ROLLE Comment: Interpretive Data Reference Interval Normal >/= [...] ORDERABLES Final R esult Performing Organization Address [facility] de Phone Number [facility] Department [place] [address] * (ABNORMAL) Hemoglobin A1c (08/28/2022 3:07 AM CDT) Hgb A1C 6.1(H) 4.0 - 5.6 % [facility] Estimated Average Glucose 128 mg/dL [facility] Comment: The ADA recommends reporting an [...] ORDERABLES Final Re sult Performing Organization Address [facility] Co de Phone Number [facility] [place] [address] from Last 3 Months or Most Recently Relevant to Health Maintenance Insurance MEDICARE [facility] MEDICARE [facility] MEDICARE [facility] MEDICARE MEDICARE MEDICARE [facility] Advance Directives For more information, please contact: [phone] * Full Code (Latest Code Status on [...] 4:14 AM 11/07/2020 6:56 PM Care Teams Tapper Supervisor Relationship Specialty Start Date End Date Nicole Sierra NP [address] [facility] [address] [place] [address] PCP - General Nurse Practitioner 07/20/23 Pinky Louise MD Consulting Physician Gastroenterology 10/02/18 [place] [address] [place] [address] [address] Nurse Practitioner Medical Oncology 02/09/22 [place] [address] [place] [address] Consulting Physician Urology 08/06/22 [place] [address] [place] [address] Consulting Physician Cardiology 08/06/22
--- OUTSIDE RECORDS SUMMARY | 2024-12-24 08:53 | XMS_ITS | Encounter Summary ---
Author Organization [facility] Address [address] [facility] [place] [address] Care Team Providers Care Swimming Pool Service Technician Name Role Phone Marie Matias MD Unavailable [phone] Provider, No Pcp Primary Care Provider Unavailab le Encounter Details Date Type Department Care Team (Late st Contact Info) Description 11/22/2022 Lab Requisition [facility] [address] [facility], [place] [address] Jyotsna Tineo, [address] [facility] 3L DEPT [place] [address] Social History Tobacco Use Types Packs/Day Years Used Date Smoking Tobacco: Never Smokeless Tobacco: Never Alcohol Use Standard Drinks/Week Comments No 0 (1 standard drink = 0.6 oz pur e alcohol) Comments Unknown Sex and Gender Information Value Date Recorded Sex Assigned at Not on file Legal Sex Female 5:48 AM HEAD CONCIERGE Gender Identity Not on file Sexual Orientation [...] of Assessment Author No 08/06/2014 2:19 PM HEAD CONCIERGE Erika Thornton, RN documented as of this encounter Mental Status * Does person have difficulty concentrating/remembering/making decisions? Answer Entry Date Author No 08/06/2014 2:19 PM HEAD CONCIERGE Erika Thornton, RN documented in this encounter Plan of Treatment Upcoming Encounters Date Type Department Care Team (Late st Contact Info) Description 06/26/2025 10:15 AM HEAD CONCIERGE Appointment [facility] [address] [place] [address] Lazaro Gonzales MD [address] [place] [address] 06/26/2025 11:30 AM HEAD CONCIERGE Office Visit [facility] - [address] [facility], [place] [address] Lazaro Gonzales MD [address] [place] [address] documented as of this encounter Procedures Procedure Name Priority Date/Time Associated Diagnosis Comments DERMATOPATHOLOGY Routine 11/21/2022 1:39 PM CDT documented in this encounter Results * DERMATOPATHOLOGY (11/21/2022 1:39 PM CDT) Case Report Dermatopathology Report Case: [id number] Authorizing Provider: Jyotsna Tineo DO Collected: 11/21/2022 01:39 PM Ordering Location: [facility] DermPath Lab Received: 11/22/2022 12:49 PM Pathologist: Luh Ross MD Specimen: Skin, left forearm 3 4:14 PM CDT DERMATOPATHOLOGY LABORATORY Final Diagnosis Specimen A. 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 Blair Garcia. These tests need not be, and therefore are not, approved by the [place] Food and Drug Administration. The tests are used for clinical purposes. Billing Codes Specimen Charges Stain Charges 11360 1 3 4:14 PM CDT DERMATOPATHOLOGY LABORATORY Embedded Images 3 4:14 PM CDT DERMATOPATHOLOGY LABORATORY Pathology/Cytolo gy TISSUE SPECIMEN FROM SKIN / Unknown 11/21/2022 1:39 PM CDT 11/22/2022 12:49 PM CDT Jyotsna Tineo DO LAB - PATHOLOGY/CYTOLOGY ORDERABLES Final Result DERMATOPATHOLOGY LABORATORY [facility] - Department of Dermatology [facility] [address] [place] [address], [address] Floor [place], [place] [address] [place] [address] documented in this encounter Visit Diagnoses Not on filedocumented in this encounter Care Teams Swimming Pool Service Technician Relationship Specialty Start Date End Date Provider, No Pcp PCP - General 12/03/24 Marie Matias MD [address] [place] [address] Internal Medicine 11/23/21 documented as of this encounter
--- OUTSIDE RECORDS SUMMARY | 2024-12-24 08:53 | XMS_ITS | Clinical Summary ---
Author Organization [facility] [address] Address [address] [place] [address] [address] Team Prov[address] Care [address] Consultant Name Role Phone Pinky Louise MD Unavailable [phone] Mackenzie Tobin NP Unavailable [phone] Loki Viramontes MD Unavailable [phone] Frank Moses MD Unavailable [phone] Nicole Sierra NP Primary Care Provider [phone] Allergies Active Allergy Reactions Criticality Noted Date [...] 1 tablet (3 mg total) by mouth early childhood lead teacher before breakfast Active aspirin 325 mg tabletIndicatio [...] 10/20/2022 Assessment & Plan (07/11/2024 3:34 PM INBOUND CUSTOMER SERVICE AGENT): -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 as [...] (06/27/2022): Added automatically from request for surgery [id number] A-fib 02/14/2022 Assessment & Plan (10/11/2022 11:47 [...] (07/11/2019): Added automatically from request for surgery [id number] Coronary artery disease invo lving cachil dehe coronary artery of cachil dehe heart without angina pectoris 11/19/2018 Angina pectoris, unstable 11/07/2018 Overview (11/07/2018): Added automatically from request for surgery [id number] GI bleed 08/06/2018 Assessment & Plan (08/29/2020 [...] with type 2 diabetes mellitus ([facility]) 07/21/2015 Overview (09/09/2016): Type 2 diabetes [...] fibrillation Assessment & Plan (07/11/2024 3:39 PM INBOUND CUSTOMER SERVICE AGENT): -Persistent AF and bradycardia s/p dual chamber [...] EF 72%, fixed apical defect c/w prior RI. Assessment & Plan (08/28/2020 7:53 PM CDT): - TTE in 09/2018 w/ G3DD. Home metop XL 12.5, losartan 25, lasix 20. - PCI 2018 w/ 1 stent to LAD. MPI stress 05/2020 w/ EF 72%, fixed apical defect c/w prior RI. Essential hypertension 09/13/201910/20 Assessment & Plan (02/16/2022 [...] Department Care Team Description 11/11/2024 Orders Only [facility] Cardiology [address] [facility] [place] [address] [place] [address] Ignacio Obregon MD 10/03/2024 3:00 PM CDT Office Visit [facility] [address] [place] [address] Maria Isabel Cesar MD Coronary artery disease involving cachil dehe coronary artery of cachil dehe heart without angina pectoris (Primary Dx); Edema, lower extremity; Mixed diabetic hyperlipidemia associated with type 2 diabetes mellitus (CMS/HCC) (HCC); Longstanding persistent atrial fibrillation (HCC); Presence of Watchman left atrial appendage closure device; S/P placement of cardiac pacemaker from Last 3 Months Immunizations Immunization Administration [...] How often do you attend chur or rastafarian services? Never 08/29/2022 Do you belong to any clubs o r organizations such as muslim groups, unions, fraternal or athletic groups, or [...] on file Legal Sex Female 2:00 AM INBOUND CUSTOMER SERVICE AGENT Gender Identity Not on file Sexual Orientation Not on file Obstetrics History Last Filed Vital Signs Vital Sign Reading Time Taken Comments Blood Pressure 106/56 10/03/2024 3:04 PM CDT Pulse 82 10/03/2024 3:04 PM CDT Temperature 36.7 C (98.1 F) 04/14/2023 8:56 AM INBOUND CUSTOMER SERVICE AGENT Respiratory Rate 18 06/20/2024 1:50 PM INBOUND CUSTOMER SERVICE AGENT Oxygen Saturation 94% 10/03/2024 3:04 PM CDT Inhaled Oxygen Concentration - - Weight 72.1 kg (159 lb) 10/03/2024 3:04 PM CDT Height 157.5 cm (5' 2) 10/03/2024 3:04 PM CDT Body Mass Index 29.08 10/03/2024 3:04 PM CDT Plan of Treatment Health Maintenance Due Date [...] season) 2024 09/08/2020, 07/08/2020 Influenza Vaccine (#1) 2025 Lipid Panel 04/22/2025 04/22/2024, 02/04, 02/15/2022, Additional history exists Hepatitis B Screening Completed 04/09/2024 Medical Devices Implanted Type Area Certified Recreational Therapist Device Identifier Shelf Expiration Date Model / Serial / Lot [employer] [id number] System 6-12fr Mvp Venous Closure Vascade - [id number] Implanted:Qt y: 1 on 08/28/2020 by Crow Gramajo MD at [facility] Collagen Left: Femoral [employer] 06/23/2022 [id number] / / [id number] Description:LFV sheath [employer] [id number] System 6-12fr Mvp Venous Closure Vascade - [id number] Implanted:Qt y: 1 on 08/28/2020 by Crow Gramajo MD at [facility] Collagen Right: Femoral [employer] 06/23/2022 [id number] / / [id number] Description:RFV sheath X 1 [employer] Tendril Sts 6fr 52cm Is-1 Connector Active Fixation Bipolar Soft /52 - [id number] - [id number] Implanted:Qt y: 1 on 10/10/2022 by Ignacio Obregon MD at [facility] Lead Right: Ventricle [employer] 08/02/20258TC/52 / [id number] / [employer] Tendril Sts 6fr 46cm Is-1 Connector Bipolar Active Fixation 46 - [id number] - [id number] Implanted:Qt y: 1 on 10/10/2022 by Ignacio Obregon MD at [facility] Lead Right: Atria [employer] 08/02/20252087TC/46 / [id number] / [employer] Joanne [id number] Device Closure Watchman Pebax Nitinol [place] Iridium Pet 24mm L75cm Od12 Fr [id number] Fr [address] Stopcock Y Adapter Self Expand Proximal Face Sterile Disposable Left Atrial Appendage - [id number] Implanted:Qt y: 1 on 08/28/2020 by Ignacio Obregon MD at [facility] Other - see comments Left: Heart [employer] Joanne 03/23/2022 [id number] / / [id number] Description:Left atrial appe ndage closure device with delivery system [employer] Assurity Mri [id number] 2 Chamber Is-1 Connector Thk6mm Pacemaker [id number] - [id number] - [id number] Implanted:Qt y: 1 on 10/10/2022 by Ignacio Obregon MD at [facility] Pacemaker Right: Chest Wall [employer] 03/04/2024 [id number] / [id number] / [id number] [employer] X [id number] Resolute Stefano 3.5mm 2.1-2.7fr 18mm 140cm Rapid Exchange - [id number] Implanted:Qt y: 1 on 11/26/2018 by Ildefonso Barrios MD PhD at [facility] Stent [employer] Inc 09/05/2020 [id number] / / [id number] [employer] Vascade Mvp 6-12fr Venous Closure [id number] - [id number] - [id number] Implanted:Qt y: 1 on 10/10/2022 by Ignacio Obregon MD at [facility] Vascular Closure Device Right: Femoral Vein [employer] 03/15/2024 [id number] / [id number] / [id number] Lens Bilateral: Eye Device Lizzy Watchman Procedure - [id number] Implanted:Qt y: 1 on 08/28/2020 by Ignacio Obregon MD at [facility] Ignyta WMPERPROCDEVICE 1-3 PC / / Procedures Procedure Name Priority Date/Time Associated Diagnosis Comments DEVICE CHECK - REMOTE Routine 11/11/2024 4:00 AM CDT POCT LIPID PANEL Routine 04/22/2024 11:4 3 AM INBOUND CUSTOMER SERVICE AGENT Lipid screening EGFR Routine 10/11/2022 4:40 AM [...] estimate based on prior usage) Presenting Rhythm (MS) Ventricular Sensing (VS) --- rate 60-100 Atrial [...] estimate based on prior usage) Presenting Rhythm (MS) Ventricular Sensing (VS) --- rate 60-100 Atrial Fibrillation or Flutter Arrhythmic events (AE) Longstanding persistent atrial fibrillation and/or flutter --- AT/AFburden: 100%. V rates > 110 bpm: 17% of the time during AF Anticoagulation (AC) Patient is status-post left atrial appendage occlusion device Patient is not on anticoagulant therapy Transmission Information (TI) Device Summary Report Ignacio Obregon MD [facility] Final Result * POCT lipid panel (04/22/2024 11:43 AM INBOUND CUSTOMER SERVICE AGENT) [facility] [address] Cholesterol, POC 119 mg/dL HDL, POC 35 mg/dL Triglycerides, POC 102 mg/dL LDL Cholesterol POC 64 mg/dL Chol/HDL Ratio, POC 1.9 Non-HDL Cholesterol, POC 85 mg/dL Cholesterol Total, POC 119 mg/dL Capillary blood 04/22/2024 1 1:43 AM INBOUND CUSTOMER SERVICE AGENT Sindhu Patrick NP POINT OF CARE TEST ORDERA BLES Final Result * (ABNORMAL) eGFR (10/11/2022 4:40 AM CDT) Pathologist [facility] eGFR 41(L) 90 - 130 mL/min/1. 73 m2 [facility] Comment: Interpretive Data Reference Interval Normal [...] R esult Performing Organization Address [facility] Co de Phone Number [facility] [employer] [place] [address] * (ABNORMAL) Hemoglobin A1c (08/28/2022 3:07 AM CDT) Hgb A1C 6.1(H) 4.0 - 5.6 % [facility] Estimated Average Glucose 128 mg/dL [facility] Comment: The ADA recommends reporting an estimated [...] MD LAB BLOOD ORDERABLES Final Re sult [facility] [employer] [place] [address] from Last 3 Months or Most Recently Relevant to Health Maintenance Insurance MEDICARE [facility] MEDICARE [facility] MEDICARE [facility] MEDICARE MEDICARE MEDICARE [facility] Advance Directives For more information, please contact: [phone] * Full Code (Latest Code Status on [...] 4:14 AM 11/07/2020 6:[address] Consultant Relationship Specialty Start Date End Date Nicole Sierra SCALLOP BINDER [address] [place] [address] PCP - General Nurse Practitioner 07/20/23 Pinky Louise MD Consulting Physician Gastroenterology 10/02/18 Mackenzie Tobin NP [address] [place] [address] Nurse Practitioner Medical Oncology 02/09/22 [place] [address] [place] [address] Consulting Physician Urology 08/06/22 [place] [address] [place] [address] Consulting Physician Cardiology 08/06/22
--- OUTSIDE RECORDS SUMMARY | 2024-12-24 08:53 | XMS_ITS | Clinical Summary ---
Author Organization [facility] Address [address] [place] [address] Care Team Providers Care Signals Intelligence Superintendent Name Role Phone Marie Matias MD Unavailable [phone] Provider, No Pcp Primary Care Provider Unavailab le Source Comments [facility],non-owned Affiliates and Associated Physician Practices is amultiple site organization consisting of ambulatory clinics and hospital sitesin [place], [place], [place] and [place]. This disclosure is being madepursuant to the Care Everywhere program and may not contain all information available regarding this patient. Last updated 18.[facility] Allergies No known active allergies Medications * Be aware that medications may not be up to date on this document. Alwaysverify current medications with the patient. Multiple Vitamins-Minerals (CENTRUM SILVER PO) Take 1 Tab by mouth once daily. Active calcium polycarbophil (FIBERCON) 625 MG tablet Take by mouth 2 times daily. Active Ascorbic Acid (VITAMIN C) 100 MG CHEW Take 1 Tab by mouth once daily. Active Fife-3 Fatty Acids 1200 MG CAPS Take 1 [...] by mouth 2 times daily With meals 2 Active empagliflozin (Jardiance) 10 MG tablet Take 1 (one) tablet by mouth once daily 2 Active Lactobacillus (probiotic acidophilus) capsule Take 1 (one) capsule by mouth once daily 2 Active carvedilol (Coreg) 25 MG tablet Take 1 (one) tablet by mouth 2 times daily with morning and evening meal 5 Active metoprolol succinate XL 24hr (Toprol XL) 50 MG tablet Take 1.5 (one and one-half) tablets by mouth at bedtime 2 12/06/19 25 Discontinu ed(Tx Complete) Active Problems Problem Noted Date Diagnosed Date [...] rybelsus -SSI Coronary artery disease invo lving [place] coronary artery of [place] heart without angina pectoris 11/19/2018 09/21/2023 Angina pectoris, unstable 11/07/20182023 Overview (09/21/2023): Added automatically from request for surgery [id number] H/O TIA (transient ischemic attack) and stroke [...] Encounters Date Type Department Care Team Description 12/05/2024 1:00 PM CDT Office Visit [facility] [address] [place] [address] Lazaro Gonzales MD Other cirrhosis of liver (HCC) (Primary Dx); 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); Portal hypertension (HCC) 12/05/2024 10:57 AM CDT - 12/05/2024 11:59 PM CDT Hospital Encounter [facility] OP DRAW STATION [address] [place] [address] Lazaro Gonzales MD Discharge Disposition: Home or Self Care 12/05/2024 10:52 AM CDT - 12/05/2024 10:56 AM CDT Hospital Encounter [facility] [address] [place] [address] Lazaro Gonzales MD Discharge Disposition: Home or Self Care 12/05/2024 Travel 10/15/2024 Lab Requisition [facility] [address] [place] [address] Jyotsna Tineo DO from Last 3 Months Immunizations Immunization Administration Dates Next Due HEP A/HEP B [...] on file Legal Sex Female 5:48 AM NUCLEAR TECHNICIAN Gender Identity Not on file Sexual Orientation Not on file Last Filed Vital Signs Vital Sign Reading Time Taken Comments Blood Pressure 130/72 12/05/2024 1:35 PM CDT Pulse 86 12/05/2024 1:35 PM CDT Temperature 36.5 C (97.7 F) 12/05/2024 1:35 PM CDT Respiratory Rate 10 03/07/2022 7:51 AM CDT Oxygen Saturation 98% 12/05/2024 1:35 PM CDT Inhaled Oxygen Concentration - - Weight 71.2 kg (157 lb) 12/05/2024 1:35 PM CDT Height 157.5 cm (5' 2) 12/05/2024 1:35 PM CDT Body Mass Index 28.72 12/05/2024 1:35 PM CDT Plan of Treatment Upcoming Encounters Date Type Department Care Team (Late st Contact Info) Description 06/26/2025 10:15 AM NUCLEAR TECHNICIAN Appointment [facility] [address] [place] [phone] Lazaro Gonzales MD [address] [place] [phone] 06/26/2025 11:30 AM NUCLEAR TECHNICIAN Office Visit [facility] - [address] [facility], [place] [address] Lazaro Gonzales MD [address] [place] [phone] Health Maintenance Due Date Last Done [...] VACCINE (3 - season) 2024 09/08/2020, 07/08/2020 HEPATITIS B VACCINE (2 of 3 - Hep B Twinrix risk 3-dose series) 05/07/2024 04/09/2024 DEPRESSION SCREENING 06/05/2024 DIABETES - URINE PROTEIN SCREENING 06/05/2024 03/12/2014, 04/30/2013 HEPATITIS A VACCINE (2 of 2 - Risk 2-dose series) 10/07/2024 04/09/2024 INFLUENZA VACCINE (#1) 2025 DIABETES-SERUM CREATININE 12/05/20252024, 04/09/2024, 09/19/2023, Additional history exists HEPATITIS C SCREENING Completed [...] 025 1:35 PM CDT) No Lizzie Valente, RN Note: Expected end date: ongoing Interventions: Take all medications as prescribed Procedures Procedure Name Priority Date/Time Associated Diagnosis Comments EMMANUEL HEP-2 IGG BY IFA Routine 12/05/2024 11:27 AM CDT Abnormal finding on imaging of liver Hepatic fibrosis IGG BLOOD Routine 12/05/2024 11:27 AM CDT Abnormal finding on imaging of liver Hepatic fibrosis EMMANUEL BLOOD SCREEN W/REFLEX TITER Routine 12/05/2024 11:27 AM CDT Abnormal finding on imaging of liver Hepatic fibrosis [id number] BLOOD Routine 12/05/2024 11:27 AM CDT Abnormal finding on imaging of liver Hepatic fibrosis ALPHA FETOPROTEIN BLOOD TUMOR MARKER Routine 12/05/2024 11:27 AM CDT Abnormal finding on imaging of liver Hepatic fibrosis BILIRUBIN DIRECT Routine 12/05/2024 11:2 7 AM CDT Abnormal finding on imaging of liver Hepatic fibrosis PT-INR [facility] Routine 12/05/2024 11:27 AM CDT Abnormal finding on imaging of liver Hepatic fibrosis COMPREHENSIVE METABOLIC PANEL Routine 12/05/2024 11:27 AM CDT Abnormal finding on imaging of liver Hepatic fibrosis CBC W AUTO DIFFERENTIAL Routine 12/06/19 11:27 AM CDT Abnormal finding on imaging of liver Hepatic fibrosis US ABDOMEN LIMITED Routine 12/05/2024 11 :23 AM CDT Abnormal finding on imaging of liver Hepatic fibrosis DERMATOPATHOLOGY Routine 10/15/2024 10:2 5 AM CDT HEPATITIS C ANTIBODY Routine 09/19/2023 3:44 PM CDT Hepatic fibrosis HEMOGLOBIN A1C Routine 03/30/2015 12:13 PM CDT Diabetes mellitus type II, controlled, with no complications MICROALBUMIN URINE RANDOM Routine 03/12/2014 11:04 AM CDT Type Ii Or Unspecified Type Diabetes Mellitus Without Mention Of Complication, Not Stated As Uncontrolled Fatigue Hypertension from Last 3 Months or Most Recently Relevant to Health Maintenance Results * (ABNORMAL) PT-INR [facility] (12/05/2024 11:27 AM CDT) PT 15.5(H) 12.1 - 14.8 Seconds 12/05/2024 12:07 PM CDT [facility] INR 1.3 See Comment 12/05/2024 12:07 PM CDT [facility] Comment:The suggested therap eutic range for standard coumadin (warfarin) therapy is an INR of 2.0-3.0. For high-risk patients (Mechanical Mitral Valve Prosthesis, etc.), the suggested prophylactic therapeutic range is an INR of 2.5-3.5. Blood BLOOD SPECIMEN / Unknown Lab Venipuncture / Unknown 12/05/2024 11:27 AM CDT 12/05/2024 11:32 AM CDT Lazaro Gonzales MD LAB - COAGULATION ORDERABLES Final Result [address] [phone] [phone] * EMMANUEL HEP-2 IGG BY IFA (12/05/2024 11:27 AM CDT) EMMANUEL HEp-2 IgG <1:80 <1:80 12/07/2024 11:35 PM CDT [facility] ([facility]) EMMANUEL Interpretive Comment See Note 12/07/2024 11:35 PM CDT [employer] [facility] ([facility]) Comment: Antinuclear antibodies by IFA negative for homogeneous, speckled, nucleolar, centromere, and nuclear dots patterns. Cytoplasmic antibodies by IFA negative for reticular/AMA, discrete/GW body-like, polar/golgi-like, rods and rings, and cytoplasmic speckled patterns. INTERPRETIVE INFORMATION: EMMANUEL Interpretive Comment Presence of antinuclear antibodies (EMMANUEL) is a hallmark feature of systemic autoimmune rheumatic diseases (SARD). However, EMMANUEL lacks diagnostic specificity and is associated with a variety of diseases (cancers, autoimmune, infectious, and inflammatory conditions) and may also occur in healthy individuals in varying prevalence. The lack of diagnostic specificity requires confirmation of positive EMMANUEL by more specific serologic tests. EMMANUEL (nuclear reactivity) positive patterns reported include centromere, homogeneous, nuclear dots, nucleolar, or speckled. EMMANUEL (cytoplasmic reactivity) positive patterns reported include reticular/AMA, discrete/GW body-like, polar/golgi-like, cytoplasmic speckled or rods and rings. All positive patterns are reported to endpoint titers (1:2560). Reported patterns may help guide differential diagnosis, although they may not be specific for individual antibodies or diseases. Mitotic staining patterns not reported. Negative results do not necessarily rule out SARD. Performed By: [facility] [address] [place] [address] Blasting Cap Assembler: Buddy King MD, PhD CLIA Number: [id number] Blood BLOOD SPECIMEN / Unknown Lab Venipuncture / Unknown 12/05/2024 11:27 AM CDT 12/05/2024 11:31 AM CDT us Lazaro Gonzales MD LAB - SEROLOGY ORDERABLES Fin al Result [facility] [employer] [facility]) [address] [place] [address] * (ABNORMAL) EMMANUEL BLOOD SCREEN W/REFLEX TITER (12/05/2024 11:27 AM CDT) EMMANUEL IgG Detected (A) None Detected 12/06/2024 10:48 PM CDT [facility] [employer] ([facility]) Comment: Anti-Nuclear Antibodies (EMMANUEL) detected by DIANA. Additional testing to follow. INTERPRETIVE INFORMATION: Anti-Nuclear Antibodies (EMMANUEL), IgG by DIANA Antinuclear Antibodies (EMMANUEL), IgG by DIANA: EMMANUEL specimens are screened using enzyme-linked immunosorbent assay (DIANA) methodology. All DIANA results reported as Detected are further tested by indirect fluorescent assay (IFA) using HEp-2 substrate with an IgG-specific conjugate. The EMMANUEL DIANA screen is designed to detect antibodies against dsDNA, histones, SS-A (Ro), SS-B (La), Fuentes, Fuentes/OIL AND GAS FIELD TECHNICIAN, Scl-70, Irma-1, centromeric proteins, other antigens extracted from the HEp-2 cell nucleus. EMMANUEL DIANA assays have been reported to have lower sensitivities than EMMANUEL IFA for systemic autoimmune rheumatic diseases (SARD). Negative results do not necessarily rule out SARD. Performed By: [facility] [address] [place] [address] Blasting Cap Assembler: Buddy King MD, PhD CLIA Number: [id number] Blood BLOOD SPECIMEN / Unknown Lab Venipuncture / Unknown 12/05/2024 11:27 AM CDT 12/05/2024 11:31 AM CDT Lazaro Gonzales MD LAB - CHEMISTRY ORDERABLES Fi nal Result Performing Organization Address City/[facility]/ZIP Co de Phone Number [id number] [place] [address] * ALPHA FETOPROTEIN BLOOD TUMOR MARKER (12/05/2024 11:27 AM CDT) Alpha-Fetoprote in Tumor Marker 2.8 <=8.3 ng/mL 12/05/2024 12:23 PM CDT [facility] Comment: AFP values will vary depending on testing procedure used. Results are not comparable across different methods. AFP values obtained by [facility] using an Rivas Alinity Immunoassay. Blood BLOOD SPECIMEN / Unknown Lab Venipuncture / Unknown 12/05/2024 11:27 AM CDT 12/05/2024 11:39 AM CDT Lazaro Gonzales MD LAB - CHEMISTRY ORDERABLES Fi nal Result Performing Organization Address [facility] Co de Phone Number [address] [address], [facility] [phone] * [id number] BLOOD (12/05/2024 11:27 AM CDT) Ebdfx-4-Dykfbg ypsin 185 90 - 200 mg/dL 12/05/2024 12:24 PM CDT [facility] Blood BLOOD SPECIMEN / Unknown Lab Venipuncture / Unknown 12/05/2024 11:27 AM CDT 12/05/2024 11:31 AM CDT Lazaro Gonzales MD LAB - CHEMISTRY ORDERABLES Fi nal Result Performing Organization Address City/[facility]/ZIP Co de Phone Number [address] [place] [address] [phone] * (ABNORMAL) CBC WITH DIFFERENTIAL (12/05/2024 11:27 AM CDT) [facility] WBC 9.3 4.0 - 10.7 x10E9/L 12/05/2024 11:51 AM [facility] RBC Count 4.51 3.90 - 5.20 x10E12/L 12/05/2024 11:51 AM [facility] Hemoglobin 12.5 11.9 - 15.8 g/dL 12/05/2024 11:51 AM [facility] Hematocrit 38.5 34.8 - 46.1 % 12/05/2024 11:51 AM [facility] MCV 85.4 80.0 - 98.0 fL 12/05/2024 11:51 AM [facility] MCH 27.7 26.7 - 33.6 pg 12/05/2024 11:51 AM [facility] MCHC 32.5 31.7 - 36.3 g/dL 12/05/2024 11:51 AM [facility] RDW-CV 12.7 11.3 - 14.8 % 12/05/2024 11:51 AM [facility] Platelet Count 101(L) 150 - 420 x10E9/L 12/05/2024 11:51 AM [facility] MPV 12.8(H) 7.8 - 11.4 fL 12/05/2024 11:51 AM [facility] Neutrophil % 78.7(H) 41.0 - 74.0 % 12/05/2024 11:51 AM [facility] Lymphocyte % 13.1(L) 17.0 - 47.0 % 12/05/2024 11:51 AM [facility] Monocyte % 7.0 3.0 - 11.0 % 12/05/2024 11:51 AM [facility] Eosinophil % 0.4 0.0 - 7.0 % 12/05/2024 11:51 AM [facility] Basophil % 0.4 0.0 - 1.6 % 12/05/2024 11:51 AM [facility] Immature Granulocytes % 0.4 0.0 - 1.0 % 12/05/2024 11:51 AM [facility] Neutrophil Absolute 7.35 1.60 - 7.50 x10E9/L 12/05/2024 11:51 AM [facility] Lymphocyte Absolute 1.22 1.00 - 4.40 x10E9/L 12/05/2024 11:51 AM [facility] Monocyte Absolute 0.65 0.15 - 1.00 x10E9/L 12/05/2024 11:51 AM [facility] Eosinophil Absolute 0.04 0.00 - 0.60 x10E9/L 12/05/2024 11:51 AM [facility] Basophil Absolute 0.04 0.00 - 0.13 x10E9/L 12/05/2024 11:51 AM [facility] Blood BLOOD SPECIMEN / Unknown Lab Venipuncture / Unknown 12/05/2024 11:27 AM CDT 12/05/2024 11:39 AM CDT us Lazaro Gonzales MD LAB - HEMATOLOGY ORDERABLES F inal Result [facility] [address] [place] [address], [facility] [phone] * (ABNORMAL) COMPREHENSIVE METABOLIC PANEL (12/05/2024 11:27 AM CDT) BUN 25 7 - 26 mg/dL 12/05/2024 12:16 PM [facility] Creatinine 1.22(H) 0.56 - 0.96 mg/dL 12/05/2024 12:16 PM [facility] Sodium 139 136 - 145 mmol/L 12/05/2024 12:16 PM [facility] Potassium 3.5 3.5 - 4.5 mmol/L 12/05/2024 12:16 PM [facility] Chloride 105 98 - 107 mmol/L 12/05/2024 12:16 PM [facility] CO2 30(H) 22 - 29 mmol/L 12/05/2024 12:16 PM [facility] Glucose 136(H) 70 - 99 mg/dL 12/05/2024 12:16 PM [facility] Calcium 9.1 8.4 - 10.2 mg/dL 12/05/2024 12:16 PM [facility] Protein Total 7.4 6.0 - 8.3 g/dL 12/05/2024 12:16 PM [facility] Albumin 3.5 3.4 - 5.0 g/dL 12/05/2024 12:16 PM [facility] Bilirubin Total 0.6 0.2 - 1.2 mg/dL 12/05/2024 12:16 PM [facility] Alkaline Phosphatase 130 40 - 150 U/L 12/05/2024 12:16 PM [facility] ALT 11 5 - 55 U/L 12/05/2024 12:16 PM [facility] AST 20 5 - 34 U/L 12/05/2024 12:16 PM [facility] Anion Gap 4(L) 6 - 16 12/05/2024 12:16 PM [facility] BUN/Creatinine Ratio 20 7 - 23 12/05/2024 12:16 PM [facility] Osmolality Calculated 294 275 - 295 mOsm/kg 12/05/2024 12:16 PM [facility] Albumin/Globulin Ratio 0.9(L) 1.1 - 2.3 12/05/2024 12:16 PM [facility] eGFR by CKD-EPI 45(L) >=90 mL/min/1.7 3 m2 12/05/2024 12:16 PM [facility] Comment:Estimated Glomerular Filtration Rate (eGFR) calculated using the CKD-EPI Creatinine Equation (2020), per the National Kidney Foundation and [place] Society of Nephrology recommendations. Blood BLOOD SPECIMEN / Unknown Lab Venipuncture / Unknown 12/05/2024 11:27 AM CDT 12/05/2024 11:40 AM CDT us Lazaro Gonzales MD LAB - CHEMISTRY ORDERABLES Fi nal Result [address] [address], [facility] [phone] * BILIRUBIN DIRECT (12/05/2024 11:27 AM CDT) Bilirubin Conjugated 0.2 0.1 - 0.5 mg/dL 12/05/2024 12:16 PM CDT [facility] Blood BLOOD SPECIMEN / Unknown Lab Venipuncture / Unknown 12/05/2024 11:27 AM CDT 12/05/2024 11:40 AM CDT Lazaro Gonzales MD LAB - CHEMISTRY ORDERABLES Fi nal Result Performing Organization Address [facility] Co de Phone Number [address] [address], [facility] [phone] * IGG BLOOD (12/05/2024 11:27 AM CDT) IgG 1,259 767 - 1,590 mg/dL 12/05/2024 12:23 PM CDT [facility] Blood BLOOD SPECIMEN / Unknown Lab Venipuncture / Unknown 12/05/2024 11:27 AM CDT 12/05/2024 11:31 AM CDT Lazaro Gonzales MD LAB - CHEMISTRY ORDERABLES Fi nal Result Performing Organization Address City/[facility] Co de Phone Number [address] [address], [facility] [phone] * US Abdomen Limited (12/05/2024 11:23 AM CDT) Anatomical Region Laterality Modality Abdomen Ultrasound 12/05/2024 12:0 0 PM CDT Impressions 12/05/2024 12:04 PM CDT IMPRESSION: Impression: Course echotexture with nodular outline of the liver consistent with cirrhosis. Observation: No hepatic observations identified. US LI RADS screening/surveillance Category: US LI-RADS score:1- Negative. Routine 6 months surveillance ultrasound examination recommended. Visualization score: A - no or minimal limitation. US LI-RADS REFERENCE: US Category: US- 1 negative: No evidence of HCC. US- 2 subthreshold: Observation (S) detected that may warrant short interval US surveillance; observation <10 mm in diameter, not definitely benign. US-3 positive: Observation (S) detected that may warrant multiphase contrast-enhanced imaging; observation equal or more than 10 mm in diameter or new thrombus in the vein. Visualization score: A- no or minimal limitation: limitations, if any, are unlikely to meaningfully affect sensitivity. B- moderate limitations: limitations may obscure small masses. C- severe limitations: Limitations significantly lower sensitivity for focal liver lesions. > Interpreting Provider: Jonathan Padilla MD on 12/05/2024 12:04 PM Narrative 12/05/2024 12:04 PM CDT PROCEDURE: US ABDOMEN LIMITED, DATE/TIME OF EXAM: 12/05/2024 11:23 AM, LOCATION [facility] INDICATION: R93.2: Abnormal finding on imaging of liver K74.00: Hepatic fibrosis ADDITIONAL CLINICAL INFORMATION: Ordering Provider Reason For Exam: Technologist Note: Additional: COMPARISON: None. Technique: Grayscale and color Doppler ultrasound evaluation of the hepatobiliary system was performed with a liver screening protocol. Findings: Liver visualization score: LI-RADS visualization score: A (no or minimal limitation in the liver visualization) Parenchymal morphology: Mildly enlarged liver with irregular nodular outline. Coarse echogenicity with distorted architecture. Liver observations:No hepatic observations identified. Main portal vein: Patent. Flow direction: Centripetal. PV diameter: 9 mm. Varices: No varices is seen at the isidra hepatis. Ascites: None. Gallbladder: Not identified, likely post cholecystectomy status. Bile ducts: Normal caliber. CBD measures 4 mm. Right kidney: Partially visualized and grossly normal appearance. Spleen: Spleen is borderline in size. Spleen measures: 12.5 cm. Other findings:None. Procedure Note Jonathan Padilla MD - 12/05/2024 PROCEDURE: US ABDOMEN LIMITED, DATE/TIME OF EXAM: 12/05/2024 11:23 AM, LOCATION [facility] INDICATION: R93.2: Abnormal finding on imaging of liver K74.00: Hepatic fibrosis ADDITIONAL CLINICAL INFORMATION: Ordering Provider Reason For Exam: Technologist Note: Additional: COMPARISON: None. Technique: Grayscale and color Doppler ultrasound evaluation of the hepatobiliary system was performed with a liver screening protocol. Findings: Liver visualization score: LI-RADS visualization score: A (no or minimal limitation in the liver visualization) Parenchymal morphology: Mildly enlarged liver with irregular nodular outline. Coarse echogenicity with distorted architecture. Liver observations:No hepatic observations identified. Main portal vein: Patent. Flow direction: Centripetal. PV diameter: 9 mm. Varices: No varices is seen at the isidra hepatis. Ascites: None. Gallbladder: Not identified, likely post cholecystectomy status. Bile ducts: Normal caliber. CBD measures 4 mm. Right kidney: Partially visualized and grossly normal appearance. Spleen: Spleen is borderline in size. Spleen measures: 12.5 cm. Other findings:None. IMPRESSION: Impression: Course echotexture with nodular outline of the liverconsistent with cirrhosis. Observation: No hepatic observations identified. US LI RADS screening/surveillance Category: US LI-RADS score:1- Negative. Routine 6 months surveillance ultrasound examination recommended. Visualization score: A - no or minimal limitation. US LI-RADS REFERENCE: US Category: US- 1 negative: No evidence of HCC. US- 2 subthreshold: Observation (S) detected that may warrant short interval US surveillance; observation <10 mm in diameter, not definitely benign. US-3 positive: Observation (S) detected that may warrant multiphase contrast-enhanced imaging; observation equal or more than 10 mm indiameter or new thrombus in the vein. Visualization score: A- no or minimal limitation: limitations, if any, are unlikely to meaningfully affect sensitivity. B- moderate limitations: limitations may obscure small masses. C- severe limitations: Limitations significantly lower sensitivityfor focal liver lesions. > Interpreting Provider: Jonathan Padilla MD on 512:04 PM us Lazaro Gonzales MD US ORDERABLES Final Result * DERMATOPATHOLOGY (10/15/2024 10:25 AM CDT) Case Report Dermatopathology Report Case: [id number] Authorizing Provider: Jyotsna Tineo DO Collected: 10/15/2024 10:25 AM Ordering Location: [facility] - Received: 10/16/2024 07:34 AM [facility] [...] characteristic determined by the Dermatopathology Laboratory at [facility], directed by Dr. Blair Garcia. These tests need not be, and therefore are not, approved by the [place] Food and Drug Administration. The tests are used for clinical purposes. Billing Codes Specimen Charges Stain Charges 63170 1 4:28 PM CDT [facility] Embedded Images 4:28 PM CDT [facility]OP[facility]Y LABORATORY Pathology/Cytolo gy TISSUE SPECIMEN FROM SKIN / Unknown 10/15/2024 10:25 AM CDT 10/16/2024 7:34 AM CDT us Jyotsna Tineo DO LAB - PATHOLOGY/CYTOLOGY ORDERABLES Final Result DERMATOPATHOLOGY LABORATORY [facility] - Department of Dermatology Center [facility] [address] [facility] [place], [place] [address] [phone] * HEPATITIS C ANTIBODY (09/19/2023 3:44 PM CDT) [facility] Hepatitis C Antibody Non-react ruel Non-reac tive 09/19/2023 5:23 PM CDT [facility] Comment:Hepatitis C Antibody screen indicates no serologic [...] CDT Lazaro Gonzales MD LAB - CHEMISTRY ORDERABLES Fi nal Result [facility] [address] [place] [address], [facility] [phone] * (ABNORMAL) HEMOGLOBIN A1C (03/30/2015 12:13 PM CDT) [facility] Hemoglobin A1c 7.4(H) 4.2 - 5.8 % 03/30/2015 10:32 PM CDT [facility] Estimated Average Glucose 166 mg/dL 03/30/2015 10:32 PM CDT [facility] Whole Blood BLOOD SPECIMEN WITH EDTA / Unknown Venipuncture / Unknown 03/30/2015 12:13 PM CDT 03/30/2015 12:21 PM CDT Narrative [facility] - 03/30/2015 10:32 PM CDT [place] [employer] recommended the following cutoff levels: [...] liver disease. Ordering Provider Unlisted LAB - CHEMISTRY OR DERABLES Final Result [facility] [address] * MICROALBUMIN URINE RANDOM (03/12/2014 11:04 AM CDT) Microalbumin Urine 20.0 0.0 - 20.0 mg/dL 03/12/2014 12:50 PM CDT [facility] Urine URINE / Unknown Venipuncture / Unknown 03/12/2014 11:04 AM CDT 03/12/2014 11:16 AM CDT Dk Kong MD LAB - URINE CHEMISTRY ORDERA BLES Final Result Performing Organization Address [facility] [facility] de Phone Number [facility] [address] from Last 3 Months or Most Recently Relevant to Health Maintenance Insurance [facility]ICARE [facility] MEDICARE [facility] MEDICARE [facility] MEDICARE [facility] Advance Directives * Full Code (Latest Code Status on File) Date Activated Date Inactivated Comments 08/04/2014 10:20 PM 08/06/2014 5:15 PM Care Teams Signals Intelligence Superintendent Relationship Specialty Start Date End Date Provider, No Pcp PCP - General 12/03/24 Marie Matias MD [address] [place] [address] Internal Medicine 11/23/21
--- OUTSIDE RECORDS SUMMARY | 2024-12-24 08:53 | XMS_ITS ---
Author Organization [facility] [address] Address [address] [place] [address] Care Team Providers Care Bottoming Room Supervisor Name Role Phone Pinky Louise MD Unavailable [phone] Mackenzie Tobin NP Unavailable [phone] Loki Viramontes MD Unavailable [phone] Frank Moses MD Unavailable Nicole Sierra NP Primary Care Provider [phone] Active Problems Problem Noted Date Diagnosed Date Sensorineural hearing loss (SNHL) of both ears 0 06/20/2024 Dizziness and giddiness 06/20/2024 S/P placement of cardiac pacemaker 10/20/2022 Assessment & Plan (07/11/2024 3:34 PM OPTICAL INSTRUMENT ASSEMBLY SUPERVISOR): -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 as [...] (06/27/2022): Added automatically from request for surgery [id number] A-fib 02/14/2022 Assessment & Plan (10/11/2022 11:47 [...] (07/11/2019): Added automatically from request for surgery [id number] Coronary artery disease invo lving teller coronary artery of [place]er heart without angina pectoris 11/19/2018 Angina pectoris, unstable 11/07/2018 Overview (11/07/2018): Added automatically from request for surgery [id number] GI bleed 08/06/2018 Assessment & Plan (08/29/2020 [...] a associated with type 2 diabetes mellitus ([facility]/HCC) 07/21/2015 Overview (09/09/2016): Type 2 diabetes mellitus [...] fibrillation Assessment & Plan (07/11/2024 3:39 PM OPTICAL INSTRUMENT ASSEMBLY SUPERVISOR): -Persistent AF and bradycardia s/p dual chamber [...] EF 72%, fixed apical defect c/w prior PR. Assessment & Plan (08/28/2020 7:53 PM CDT): - TTE in 09/2018 w/ G3DD. Home metop XL 12.5, losartan 25, lasix 20. - PCI 2018 w/ 1 stent to LAD. MPI stress 05/2020 w/ EF 72%, fixed apical defect c/w prior PR. Essential hypertension 09/13/201910/20 Assessment & Plan (02/16/2022 [...]
--- OUTSIDE RECORDS SUMMARY | 2024-12-24 08:53 | XMS_ITS | Encounter Summary ---
Author Organization [facility] Address [address] [place], [place] [address] [address] Care Team Providers Care Music Agent Name Role Phone Marie Matias MD Unavailable [phone] Provider, No Pcp Primary Care Provider Unavailab le Reason for Visit * Reason Comments Medication Problem Encounter Details Date Type Department Care Team (Late st Contact Info) Description 10/18/2023 Telephone [facility] - [address] [place] [phone] Mariela Mcallister RN Medication Problem Social History Tobacco Use Types Packs/Day Years Used Date Smoking Tobacco: Never Smokeless Tobacco: Never Alcohol Use Standard Drinks/Week Comments No 0 (1 standard drink = 0.6 oz pur e alcohol) Comments Unknown Sex and Gender Information Value Date Recorded Sex Assigned at Not on file Legal Sex Female 5:48 AM SITE ADMINISTRATOR Gender Identity Not on file Sexual Orientation Not on file documented as of this encounter Functional Status * Is person deaf or have serious hearing difficulty? Answer Date of Assessment Author No 08/06/2014 2:19 PM Erika Canela, ROSELINE * Is person blind or have serious difficulty seeing? Answer Date of Assessment Author No 08/06/2014 2:19 PM Erika Canela, RN * Does person have serious difficulty walking/climbing stairs? Answer Date of Assessment Author No 08/06/2014 2:19 PM Erika Canela, RN * Does person have difficulty dressing/bathing? Answer Date of Assessment Author No 08/06/2014 2:19 PM Erika Canela, RN * Does person have difficulty doing errands alone? Answer Date of Assessment Author No 08/06/2014 2:19 PM SITE ADMINISTRATOR Erika Thornton, RN documented as of this encounter Mental Status * Does person have difficulty concentrating/remembering/making decisions? Answer Entry Date Author No 08/06/2014 2:19 PM SITE ADMINISTRATOR Erika Thornton RN documented in this encounter Miscellaneous Notes * Telephone Encounter - Mariela Mcallister RN - 10/18/2023 2:15 PM CDT Call received from pt to report f/u with med surg nurse. Inquired about a change in medication from metoprolol succinate to carvedilol BID. Hand Ornament Maker prefers pt to stay on metoprolol succinate. Dr. Gonzales notified. documented in this encounter Plan of Treatment Upcoming Encounters Date Type Department Care Team (Late st Contact Info) Description 06/26/2025 10:15 AM SITE ADMINISTRATOR Appointment [facility] [address] [place] [address] Lazaro Gonzales MD [address] [place] [phone] 06/26/2025 11:30 AM SITE ADMINISTRATOR Office Visit [facility] - [address] [facility], [place] [address] Lazaro Gonzales MD [address] [place] [phone] documented as of this encounter Visit Diagnoses Not on filedocumented in this encounter Care Teams Music Agent Relationship Specialty Start Date End Date Provider, No Pcp PCP - General 12/03/24 Marie Matias MD [address] [place] [phone] Internal Medicine 11/23/21 documented as of this encounter
[2024-12-24 09:36] LABS: Platelet Count Result 110 k/mm3 (150-375)
[2024-12-24 09:41] VITALS: BP 116/47; PULSE 89; TEMP 36.6; O2SAT 96; BMI 28.3
[2024-12-24 09:51] LABS: INR 1.3; Prothrombin Time 15.8 Seconds (11.1-14.7)
--- NOTE | 2024-12-24 11:40 | SUR.PREOP ---
1045 patient was discharged per MD Monterroso. IV removed, all questions were answered.
--- NOTE | 2024-12-24 14:31 | P.PNCROSS_ITS ---
Event Note Event Note Event Note: 79yo woman presents for CT guided LLL lung biopsy. Personal history of both breast and renal cancer (post partial L mastectomy 11/2011, followed chemo and XRT; post R nephrectomy, 08/2022). LLL pulmonary nodule surrounded by significant vascularity rendering the risk of hemoptysis and pulmonary hemorrhage elevated. Most recent CT examinations demonstrate this LLL nodule to be stable - 11/19/2023: 10.7 x 6.6mm; 03/17/2024: 10.6 x 6.6mm; and 08/09/2024: 10.7 x 6.6mm. When compared with imaging performed 09/13/2022, however, this nodule has increased in size as it measured 8.1 x 5.8mm at that time. Given its recent lack of growth, as well as the risk of pulmonary hemorrhage g iven its morphology (surrounded on all sides with fairly prominent vascularity) would recommend PET CT prior to Bx. If this nodule demonstrates interval growth, or increased radiotracer activity on PET CT will undertake biopsy at that time. Recommendations and plan discussed with both the patient and her as well as the ordering clinician, Nayla Lucero - who all agree.
== END 2024-12-24 10:45 | disposition home or self-care (01) ==
PROVIDERS: PCP Nurse Practitioner Family; Referring Provider Internal Medicine Critical Care Medicine; Visit Provider Radiology Diagnostic Radiology
PROC: BB24ZZZ Computerized Tomography (CT Scan) of Bilateral Lungs (ICD-10-PCS; CPT 32408; principal; 2024-12-24 11:00)
DX: Z01.811 Encounter for preprocedural respiratory examination (principal); R91.1 Solitary pulmonary nodule
CPT/HCPCS: 36415; 82948; 85049; 85610

== ENCOUNTER 2025-01-06 10:45 | Outpatient (CLI) | payer MEDICARE, SELFPAY ==
--- OUTSIDE RECORDS SUMMARY | 2025-01-06 11:13 | XMS_ITS | Encounter Summary ---
Author Organization [facility] Address [address] [place], [place] [address] [address] Care Team Providers Care Supervisor Weaving Name Role Phone Marie Matias MD Unavailable [phone] Provider, No Pcp Primary Care Provider Unavailab le Reason for Visit * Reason Comments Medication Problem Encounter Details Date Type Department Care Team (Late st Contact Info) Description 10/18/2023 Telephone [facility] - [address] [place] [phone] Mariela Mcallister RN Medication Problem Social History Tobacco Use Types Packs/Day Years Used Date Smoking Tobacco: Never Smokeless Tobacco: Never Alcohol Use Standard Drinks/Week Comments No 0 (1 standard drink = 0.6 oz pur e alcohol) Comments Unknown Sex and Gender Information Value Date Recorded Sex Assigned at Not on file Legal Sex Female 5:48 AM TRACK CAR OPERATOR Gender Identity Not on file Sexual [...] of Assessment Author No 08/06/2014 2:19 PM TRACK CAR OPERATOR Erika Thornton, RN documented as of this encounter Mental Status * Does person have difficulty concentrating/remembering/making decisions? Answer Entry Date Author No 08/06/2014 2:19 PM TRACK CAR OPERATOR Erika Thornton RN documented in this encounter Miscellaneous Notes * Telephone Encounter - Mariela Mcallister RN - 10/18/2023 2:15 PM CDT Call received from pt to report f/u with dispatch clerk. Inquired about a change in medication from metoprolol succinate to carvedilol BID. Application Helper prefers pt to stay on metoprolol succinate. Dr. Gonzales notified. documented in this encounter Plan of Treatment Upcoming Encounters Date Type Department Care Team (Late st Contact Info) Description 06/26/2025 10:15 AM TRACK CAR OPERATOR Appointment [facility] [address] [place] [address] Lazaro Gonzales MD [address] [place] [phone] 06/26/2025 11:30 AM TRACK CAR OPERATOR Office Visit [facility] - [address] [facility], [place] [address] Lazaro Gonzales MD [address] [place] [phone] documented as of this encounter Visit Diagnoses Not on filedocumented in this encounter Care Teams Supervisor Weaving Relationship Specialty Start Date End Date Provider, No Pcp PCP - General 12/03/24 Marie Matias MD [address] [place] [phone] Internal Medicine 11/23/21 documented as of this encounter
--- OUTSIDE RECORDS SUMMARY | 2025-01-06 11:13 | XMS_ITS ---
Author Organization [facility] [address] Address [address] [place] [address] Care Team Providers Care Parachute Folder Name Role Phone Pinyk Louise MD Unavailable [phone] Mackenzie Tobin NP Unavailable [phone] Loki Viramontes MD Unavailable [phone] Frank Moses MD Unavailable Nicole Sierra NP Primary Care Provider Active Problems Problem Noted Date Diagnosed Date Sensorineural hearing loss (SNHL) of both ears 0 06/20/2024 Dizziness and giddiness 06/20/2024 S/P placement of cardiac pacemaker 10/20/2022 Assessment & Plan (07/11/2024 3:34 PM SEASONAL GREENERY BUNDLER): -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 as [...] (06/27/2022): Added automatically from request for surgery [id number] A-fib 02/14/2022 Assessment & Plan (10/11/2022 11:47 [...] (07/11/2019): Added automatically from request for surgery [id number] Coronary artery disease invo lving [place] coronary artery of [place] heart without angina pectoris 11/19/2018 Angina pectoris, unstable 11/07/2018 Overview (11/07/2018): Added automatically from request for surgery [id number] GI bleed 08/06/2018 Assessment & Plan (08/29/2020 [...] a associated with type 2 diabetes mellitus ([facility]/HCC) 07/21/2015 Overview (09/09/2016): Type 2 diabetes [...] fibrillation Assessment & Plan (07/11/2024 3:39 PM SEASONAL GREENERY BUNDLER): -Persistent AF and bradycardia s/p dual chamber [...] EF 72%, fixed apical defect c/w prior NE. Assessment & Plan (08/28/2020 7:53 PM CDT): - TTE in 09/2018 w/ G3DD. Home metop XL 12.5, losartan 25, lasix 20. - PCI 2018 w/ 1 stent to LAD. MPI stress 05/2020 w/ EF 72%, fixed apical defect c/w prior NE. Essential hypertension 09/13/201910/20 Assessment & Plan (02/16/2022 [...]
--- OUTSIDE RECORDS SUMMARY | 2025-01-06 11:13 | XMS_ITS | Encounter Summary ---
Author Organization [facility] Address [address] [facility] [place] [address] Care Team Providers Care Medical Care Manager Name Role Phone Marie Matias MD Unavailable Provider, No Pcp Primary Care Provider Unavailab le Encounter Details Date Type Department Care Team (Late st Contact Info) Description 01/03/2023 Lab Requisition [facility] - [facility] Lab [address] [facility], [place] [address] Jyotsna Tineo, [address] [facility] [address] [place] [address] Social History Tobacco Use Types Packs/Day Years Used Date Smoking Tobacco: Never Smokeless Tobacco: Never Alcohol Use Standard Drinks/Week Comments No 0 (1 standard drink = 0.6 oz pur e alcohol) Comments Unknown Sex and Gender Information Value Date Recorded Sex Assigned at Not on file Legal Sex Female 5:48 AM FIELD SERVICES DIRECTOR Gender Identity Not on file Sexual Orientation [...] of Assessment Author No 08/06/2014 2:19 PM FIELD SERVICES DIRECTOR Erika Thornton, RN documented as of this encounter Mental Status * Does person have difficulty concentrating/remembering/making decisions? Answer Entry Date Author No 08/06/2014 2:19 PM FIELD SERVICES DIRECTOR Erika Thornton, RN documented in this encounter Plan of Treatment Upcoming Encounters Date Type Department Care Team (Late st Contact Info) Description 06/26/2025 10:15 AM FIELD SERVICES DIRECTOR Appointment [facility] [address] [place] [phone] Lazaro Gonzales MD [address] [place] [phone] 06/26/2025 11:30 AM FIELD SERVICES DIRECTOR Office Visit [facility] - [address] [facility], [place] [address] Lazaro Gonzales MD [address] [place] [phone] documented as of this encounter Procedures Procedure Name Priority Date/Time Associated Diagnosis Comments DERMATOPATHOLOGY Routine 01/03/2023 11:1 1 AM CDT documented in this encounter Results * DERMATOPATHOLOGY (01/03/2023 11:11 AM CDT) Case Report Dermatopathology Report Case: [id number] Authorizing Provider: Jyotsna Tineo DO Collected: 01/03/2023 11:11 AM Ordering Location: [facility] Received: 01/03/2023 03:19 PM Pathologist: Shaunna Garcia MD Specimen: Skin, left forearm 5:22 PM CDT DERMATOPATHOLOGY LABORATORY Final Diagnosis Specimen A. 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 The specimen consists of a non-oriented ellipse of skin measuring [id number] mm. The epidermal surface is unremarkable. The margin is inked green. The 12 o'clock and 6 o'clock tips are submitted in cassette 1. The remainder of the ellipse is serially sectioned and submitted in cassette 2-3. Jar 0. 3 5:22 PM [facility]ATORY Microscopic Description Specimen A. SKIN, [...] by the Dermatopathology Laboratory at [facility], directed by Dr. Blair Garcia. These tests need not be, and therefore are not, approved by the [place] Food and Drug Administration. The tests are used for clinical purposes. Billing Codes Specimen Charges Stain Charges 22676 1 3 5:22 PM CDT DERMATOPATHOLOGY LABORATORY Embedded Images 3 5:22 PM CDT DERMATOPATHOLOGY LABORATORY Pathology/Cytolo gy TISSUE SPECIMEN FROM SKIN / Unknown 01/03/2023 11:11 AM CDT 01/03/2023 3:19 PM CDT us Jyotsna Tineo DO LAB - PATHOLOGY/CYTOLOGY ORDERABLES Final Result DERMATOPATHOLOGY LABORATORY [facility] - Department of Dermatology [address], [address] [phone] documented in this encounter Visit Diagnoses Not on filedocumented in this encounter Care Teams Medical Care Manager Relationship Specialty Start Date End Date Provider, No Pcp PCP - General 12/03/24 Marie Matias MD [address] [place] [address] Internal Medicine 11/23/21 documented as of this encounter
--- OUTSIDE RECORDS SUMMARY | 2025-01-06 11:13 | XMS_ITS | Referral Summary ---
Author Organization [facility] [place] [address] Address [address] [place] [address] Care Team Providers Care Web Content Coordinator Name Role Phone Pinky Louise MD Unavailable [phone] Mackenzie Tobin NP Unavailable [phone] Loki Viramontes MD Unavailable [phone] Frank Moses MD Unavailable Nicole Sierra NP Primary Care Provider [phone] Encounters Date Type Department Care Team Description 11/11/2024 Orders Only [facility] Card[facility] [address] [facility] Advanced [facility] 8th [place] [address] [place] [address] Ignacio Obregon MD from Last 3 Months [...] 1 tablet (3 mg total) by mouth repair order clerk before breakfast Active aspirin 325 mg tabletIndicatio [...] 10/20/2022 Assessment & Plan (07/11/2024 3:34 PM CLAIM PROCESSOR): -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 as [...] (06/27/2022): Added automatically from request for surgery [id number] A-fib 02/14/2022 Assessment & Plan (10/11/2022 11:47 [...] (07/11/2019): Added automatically from request for surgery [id number] Coronary artery disease invo lving [place] coronary artery of [place] heart without angina pectoris 11/19/2018 Angina pectoris, unstable 11/07/2018 Overview (11/07/2018): Added automatically from request for surgery [id number] GI bleed 08/06/2018 Assessment & Plan (08/29/2020 [...] with type 2 diabetes mellitus ([facility]) 07/21/2015 Overview (09/09/2016): Type 2 diabetes [...] fibrillation Assessment & Plan (07/11/2024 3:39 PM CLAIM PROCESSOR): -Persistent AF and bradycardia s/p dual chamber [...] often do you attend chur ch or advent services? Never 08/29/2022 Do you belong to any clubs o r organizations such as baptism groups, unions, fraternal or athletic groups, or [...] place to sleep or slept in a fdc (including now)? No 08/29/2022 Personal Safety Answer Date Recorded Have you ever been in or are you currently in a harmful physical or emotional relationship or is someone making you feel afraid or unsafe? Denies 10/10/2022 Comments No Sex and Gender Information Value Date Recorded Sex Assigned at Not on file Legal Sex Female 2:00 AM CLAIM PROCESSOR Gender Identity Not on file Sexual Orientation Not on file Last Filed Vital Signs Vital Sign Reading Time Taken Comments Blood Pressure 106/56 10/03/2024 3:04 PM CDT Pulse 82 10/03/2024 3:04 PM CDT Temperature 36.7 C (98.1 F) 04/14/2023 8:56 AM CLAIM PROCESSOR Respiratory Rate 18 06/20/2024 1:50 PM CLAIM PROCESSOR Oxygen Saturation 94% 10/03/2024 3:04 PM CDT Inhaled Oxygen Concentration - - Weight 72.1 kg (159 lb) 10/03/2024 3:04 PM CDT Height 157.5 cm (5' 2) 10/03/2024 3:04 PM CDT Body Mass Index 29.08 10/03/2024 3:04 PM CDT Plan of Treatment Not on file Medical Devices Implanted Type Area Silviculture Forester Device Identifier Shelf Expiration Date Model / Serial / Lot Cardiva Medical Inc [id number] System 6-12fr Mvp Venous Closure Vascade - [id number] Implanted:Qt y: 1 on 08/28/2020 by Crow Gramajo MD at [facility] Collagen Left: Femoral Cardiva Medical Inc 06/23/2022 [id number] / / [id number] Description:LFV sheath Cardiva Medical Inc [id number] System 6-12fr Mvp Venous Closure Vascade - [id number] Implanted:Qt y: 1 on 08/28/2020 by Crow Gramajo MD at [facility] Collagen Right: Femoral Cardiva Medical Inc 06/23/2022 [id number] / / [id number] Description:RFV sheath X 1 [employer] Sc Inc Tendril Sts 6fr 52cm Is-1 Connector Active Fixation Bipolar Soft 52 - [id number] - [id number] Implanted:Qt y: 1 on 10/10/2022 by Ignacio Obregon MD at [facility] Lead Right: Ventricle [employer] Joe Medical Sc Inc 08/02/20252087TC/52 / [id number] / [employer] Joe Medical Sc Inc Tendril Sts 6fr 46cm Is-1 Connector Bipolar Active Fixation /46 - [id number] - [id number] Implanted:Qt y: 1 on 10/10/2022 by Ignacio Obregon MD at [facility] Lead Right: Atria [employer] Joe Medical Sc Inc 08/02/20252087TC/46 / [id number] / [place] Scientific Joanne [id number] Device Closure Watchman Pebax Nitinol [place] Iridium Pet 24mm L75cm Od12 Fr Odsec14 Fr [address] Stopcock Y Adapter Self Expand Proximal Face Sterile Disposable Left Atrial Appendage - [id number] Implanted:Qt y: 1 on 08/28/2020 by Ignacio Obregon MD at [facility] Other - see comments Left: Heart [employer] Joanne 03/23/2022 [id number] / / [id number] Description:Left atrial appe ndage closure device with delivery system [employer] Joe Medical Sc Inc Assurity Mri [id number] 2 Chamber Is-1 Connector Thk6mm Pacemaker [id number] - [id number] - [id number] Implanted:Qt y: 1 on 10/10/2022 by Ignacio Obregon MD at [facility] Pacemaker Right: Chest Wall [employer] Joe Medical Sc Inc 03/04/2024 [id number] / [id number] / [id number] Medtronic Usa Inc X [id number] Resolute [place] 3.5mm 2.1-2.7fr 18mm 140cm Rapid Exchange - [id number] Implanted:Qt y: 1 on 11/26/2018 by Ildefonso Barrios MD PhD at [facility] Stent Medtronic Inc 09/05/2020 [id number] / / [id number] Cardiva Medical Inc Vascade Mvp 6-12fr Venous Closure [id number] - [id number] - [id number] Implanted:Qt y: 1 on 10/10/2022 by Ignacio Obregon MD at [facility] Vascular Closure Device Right: Femoral Vein Cardiva Medical Inc 03/15/2024 [id number] / [id number] / [id number] Lens Bilateral: Eye Device Lizzy Watchman Procedure - [id number] Implanted:Qt y: 1 on 08/28/2020 by Ignacio Obregon MD at [facility] [employer] Joanne [id number] 1-3 PC / / Procedures Procedure Name Priority Date/Time Associated Diagnosis Comments DEVICE CHECK - REMOTE Routine 11/11/2024 4:00 AM CDT POCT LIPID PANEL Routine 04/22/2024 11:4 3 AM CLAIM PROCESSOR Lipid screening EGFR Routine 10/11/2022 4:40 [...] estimate based on prior usage) Presenting Rhythm (NM) Ventricular Sensing (VS) --- rate 60-100 Atrial [...] estimate based on prior usage) Presenting Rhythm (NM) Ventricular Sensing (VS) --- rate 60-100 Atrial Fibrillation or Flutter Arrhythmic events (AE) Longstanding persistent atrial fibrillation and/or flutter --- AT/AFburden: 100%. V rates > 110 bpm: 17% of the time during AF Anticoagulation (AC) Patient is status-post left atrial appendage occlusion device Patient is not on anticoagulant therapy Transmission Information (TI) Device Summary Report Ignacio Obregon MD CV CARDIAC SERVICES [facility] Final Result * POCT lipid panel (04/22/2024 11:43 AM CLAIM PROCESSOR) Cholesterol, POC 119 mg/dL HDL, POC 35 mg/dL Triglycerides, POC 102 mg/dL LDL Cholesterol POC 64 mg/dL Chol/HDL Ratio, POC 1.9 Non-HDL Cholesterol, POC 85 mg/dL Cholesterol Total, POC 119 mg/dL Capillary blood 04/22/2024 1 1:43 AM CLAIM PROCESSOR us Sindhu Patrick NP POINT OF [...] MD LAB BLOOD ORDERABLES Final R esult [facility] Department [place] [address] * (ABNORMAL) Hemoglobin A1c (08/28/2022 3:07 AM CDT) Hgb A1C 6.1(H) 4.0 - 5.6 % [facility] Estimated Average Glucose 128 mg/dL LIZZIE ROLLE Comment: The ADA recommends reporting an estimated [...] ORDERABLES Final Re sult LIZZIE GARCIA [facility] Department [place] [address] from Last 3 Months or Most Recently Relevant to Health Maintenance Insurance MEDIC[facility] MEDICARE [facility] MEDICARE [facility] MEDICARE MEDICARE MEDICARE [facility] Advance Directives For more information, please contact: [phone] * Full Code (Latest Code Status on [...] 4:14 AM 11/07/2020 6:56 PM Care Teams Web Content Coordinator Relationship Specialty Start Date End Date Nicole Sierra NP [address] [facility] 1 [place] [address] PCP - General Nurse Practitioner 07/20/23 Pinky Louise MD Consulting Physician Gastroenterology 10/02/18 Mackenzie Tobin NP [address] [address] Nurse Practitioner Medical Oncology 02/09/22 [place] [address] [place] [address] Consulting Physician Urology 08/06/22 [place] [address] [place] [address] Consulting Physician Cardiology 08/06/22
--- OUTSIDE RECORDS SUMMARY | 2025-01-06 11:13 | XMS_ITS | Clinical Summary ---
Author Organization [facility] Address [address] [place] [address] Care Team Providers Care Devulcanizer Charger Name Role Phone Unavailable Primary Care Provider [...]
--- OUTSIDE RECORDS SUMMARY | 2025-01-06 11:13 | XMS_ITS | Encounter Summary ---
Author Organization [facility] Address [address] [facility] [place] [address] Care Team Providers Care Application Engineer Name Role Phone Marie Matias MD Unavailable [phone] Provider, No Pcp Primary Care Provider Unavailab le Encounter Details Date Type Department Care Team (Late st Contact Info) Description 11/22/2022 Lab Requisition [facility] - Derm[facility] Lab [address] [facility] [place], [place] [address] Jyotsna Tineo, [address] [facility] 3L [place] [address] Social History Tobacco Use Types Packs/Day Years Used Date Smoking Tobacco: Never Smokeless Tobacco: Never Alcohol Use Standard Drinks/Week Comments No 0 (1 standard drink = 0.6 oz pur e alcohol) Comments Unknown Sex and Gender Information Value Date Recorded Sex Assigned at Not on file Legal Sex Female 5:48 AM REFUND CLERK Gender Identity Not on file Sexual Orientation [...] of Assessment Author No 08/06/2014 2:19 PM REFUND CLERK Erika Thornton, RN documented as of this encounter Mental Status * Does person have difficulty concentrating/remembering/making decisions? Answer Entry Date Author No 08/06/2014 2:19 PM REFUND CLERK Erika Thornton, RN documented in this encounter Plan of Treatment Upcoming Encounters Date Type Department Care Team (Late st Contact Info) Description 06/26/2025 10:15 AM REFUND CLERK Appointment [facility] [address] [place] [address] Lazaro Gonzales MD [address] [place] [address] 06/26/2025 11:30 AM REFUND CLERK Office Visit [facility] - [address] [facility] [place], [place] [address] Lazaro Gonzales MD [address] [place] [address] documented as of this encounter Procedures Procedure Name Priority Date/Time Associated Diagnosis Comments DERMATOPATHOLOGY Routine 11/21/2022 1:39 PM CDT documented in this encounter Results * DERMATOPATHOLOGY (11/21/2022 1:39 PM CDT) Case Report Dermatopathology Report Case: [id number] Authorizing Provider: Jyotsna Tineo DO Collected: 11/21/2022 01:39 PM Ordering Location: [facility] Received: 11/22/2022 12:49 PM Pathologist: [...] determined by the Dermatopathology Laboratory at [facility], directed by Dr. Blair Garcia. These tests need not be, and therefore are not, approved by the [place] Food and Drug Administration. The tests are used for clinical purposes. Billing Codes Specimen Charges Stain Charges 32535 1 3 4:14 PM CDT DERMATOPATHOLOGY LABORATORY Embedded Images 3 4:14 PM CDT DERMATOPATHOLOGY LABORATORY Pathology/Cytolo gy TISSUE SPECIMEN FROM SKIN / Unknown 11/21/2022 1:39 PM CDT 11/22/2022 12:49 PM CDT Jyotsna Tineo DO LAB - PATHOLOGY/CYTOLOGY ORDERABLES Final Result DERMATOPATHOLOGY LABORATORY [facility] - Department of Dermatology [facility] [address] [place] [address], 3rd Floor [place], [place] [address] [place] [address] documented in this encounter Visit Diagnoses Not on filedocumented in this encounter Care Teams Application Engineer Relationship Specialty Start Date End Date Provider, No Pcp PCP - General 12/03/24 Marie Matias MD [address] [place] [address] Internal Medicine 11/23/21 documented as of this encounter
--- OUTSIDE RECORDS SUMMARY | 2025-01-06 11:13 | XMS_ITS | Encounter Summary ---
Author Organization [facility] Address [address] [facility] [place] [address] Care Team Providers Care Carroting Machine Operator Name Role Phone Marie Matias MD Unavailable [phone] Provider, No Pcp Primary Care Provider Unavailab le Encounter Details Date Type Department Care Team (Late st Contact Info) Description 10/15/2024 Lab Requisition [facility] Lab [address] [facility], [place] [address] Jyotsna Tineo, [address] [facility] 3L [place] [address] Social History Tobacco Use Types Packs/Day Years Used Date Smoking Tobacco: Never Smokeless Tobacco: Never Alcohol Use Standard Drinks/Week Comments No 0 (1 standard drink = 0.6 oz pur e alcohol) Comments Unknown Sex and Gender Information Value Date Recorded Sex Assigned at Not on file Legal Sex Female 5:48 AM RN ADVANCED Gender Identity Not on file Sexual Orientation [...] of Assessment Author No 08/06/2014 2:19 PM RN ADVANCED Erika Thornton, RN documented as of this encounter Mental Status * Does person have difficulty concentrating/remembering/making decisions? Answer Entry Date Author No 08/06/2014 2:19 PM RN ADVANCED Erika Thornton, RN documented in this encounter Plan of Treatment Upcoming Encounters Date Type Department Care Team (Late st Contact Info) Description 06/26/2025 10:15 AM RN ADVANCED Appointment [facility] [address] [place] [address] Lazaro Gonzales MD [address] [place] [address] 06/26/2025 11:30 AM RN ADVANCED Office Visit [facility] - [address] [facility], [place] [address] Lazaro Gonzales MD [address] [place] [address] documented as of this encounter Goals [...] AM CDT) Case Report Dermatopathology Report Case: [id number] Authorizing Provider: Jyotsna Tineo DO Collected: 10/15/2024 10:25 AM Ordering Location: [facility] Physician [facility] - Received: 10/16/2024 07:34 AM DermPath Lab [...] by the Dermatopathology Laboratory at [facility], directed by Dr. Blair Garcia. These tests need not be, and therefore are not, approved by the [place] Food and Drug Administration. The tests are used for clinical purposes. Billing Codes Specimen Charges Stain Charges 33236 1 4:28 PM CDT DERMATOPATHOLOGY LABORATORY Embedded Images 4:28 PM CDT DERMATOPATHOLOGY LABORATORY Pathology/Cytolo gy TISSUE SPECIMEN FROM SKIN / Unknown 10/15/2024 10:25 AM CDT 10/16/2024 7:34 AM CDT us Jyotsna Tineo DO LAB - PATHOLOGY/CYTOLOGY ORDERABLES Final Result DERMATOPATHOLOGY LABORATORY [facility] - Department of Dermatology [address], 3rd Floor [address] [phone] documented in this encounter Visit Diagnoses Not on filedocumented in this encounter Care Teams Carroting Machine Operator Relationship Specialty Start Date End Date Provider, No Pcp PCP - General 7/1/25 Marie Matias MD [address] [place] [address] Internal Medicine 11/23/21 documented as of this encounter
--- OUTSIDE RECORDS SUMMARY | 2025-01-06 11:13 | XMS_ITS | Clinical Summary ---
Author Organization [facility] [place] [address] Address [address] [place] [address] Care Team Providers Care Manager Bilingual Name Role Phone Pinky Louise MD Unavailable [phone] Mackenzie Tobin NP Unavailable [phone] Loki Viramontes MD Unavailable [phone] Frank Moses MD Unavailable [phone] Nicole Sierra NP Primary Care Provider [phone] Allergies Active Allergy Reactions Criticality Noted Date [...] 1 tablet (3 mg total) by mouth ems instructor before breakfast Active aspirin 325 mg tabletIndicatio [...] 10/20/2022 Assessment & Plan (07/11/2024 3:34 PM SOLAR ENERGY TECHNICIAN): -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 [...] (06/27/2022): Added automatically from request for surgery [id number] A-fib 02/14/2022 Assessment & Plan (10/11/2022 11:47 [...] (07/11/2019): Added automatically from request for surgery [id number] Coronary artery disease invo lving [place] coronary artery of [place] heart without angina pectoris 11/19/2018 Angina pectoris, unstable 11/07/2018 Overview (11/07/2018): Added automatically from request for surgery [id number] GI bleed 08/06/2018 Assessment & Plan (08/29/2020 [...] a associated with type 2 diabetes mellitus ([facility]) 07/21/2015 Overview (09/09/2016): Type [...] fibrillation Assessment & Plan (07/11/2024 3:39 PM SOLAR ENERGY TECHNICIAN): -Persistent AF and bradycardia s/p dual [...] Department Care Team Description 11/11/2024 Orders Only [facility] Cardiology [address] [facility] 8th [place] [address] [place] [address] Ignacio Obregon MD from Last 3 Months [...] often do you attend chur ch or christian services? Never 08/29/2022 Do you belong to any clubs o r organizations such as episcopalian groups, unions, fraternal or athletic groups, or [...] place to sleep or slept in a snf (including now)? No 08/29/2022 Personal Safety Answer Date Recorded Have you ever been in or are you currently in a harmful physical or emotional relationship or is someone making you feel afraid or unsafe? Denies 10/10/2022 Comments No Sex and Gender Information Value Date Recorded Sex Assigned at Not on file Legal Sex Female 2:00 AM SOLAR ENERGY TECHNICIAN Gender Identity Not on file Sexual Orientation Not on file Obstetrics History Last Filed Vital Signs Vital Sign Reading Time Taken Comments Blood Pressure 106/56 10/03/2024 3:04 PM CDT Pulse 82 10/03/2024 3:04 PM CDT Temperature 36.7 C (98.1 F) 04/14/2023 8:56 AM SOLAR ENERGY TECHNICIAN Respiratory Rate 18 06/20/2024 1:50 PM SOLAR ENERGY TECHNICIAN Oxygen Saturation 94% 10/03/2024 3:04 PM CDT [...] Completed 04/09/2024 Medical Devices Implanted Type Area Lung Gun Operator Device Identifier Shelf Expiration Date Model / Serial / Lot Cardiva Medical Inc [id number] System 6-12fr Mvp Venous Closure Vascade - [id number] Implanted:Qt y: 1 on 08/28/2020 by Crow Gramajo MD at [facility] Collagen Left: Femoral [employer] Inc 06/23/2022 [id number] / / [id number] Description:LFV sheath [employer] Inc [id number] System 6-12fr Mvp Venous Closure Vascade - [id number] Implanted:Qt y: 1 on 08/28/2020 by Crow Gramajo MD at [facility] Collagen Right: Femoral [employer] Inc 06/23/2022 [id number] / / [id number] Description:RFV sheath X 1 [employer] Tendril Sts 6fr 52cm Is-1 Connector Active Fixation Bipolar Soft 2088tc/52 - [id number] - [id number] Implanted:Qt y: 1 on 10/10/2022 by Ignacio Obregon MD at [facility] Lead Right: Ventricle [employer] Inc 08/02/20252087TC/52 / [id number] / [employer] Tendril Sts 6fr 46cm Is-1 Connector Bipolar Active Fixation 46 - [id number] - [id number] Implanted:Qt y: 1 on 10/10/2022 by Ignacio Obregon MD at [facility] Lead Right: Atria [employer] Joe Medical Sc Inc 08/02/2025/46 / [id number] / [place] [employer] Joanne [id number] Device Closure Watchman Pebax Nitinol [place] Iridium Pet 24mm L75cm Od12 Fr Odsec14 Fr [address] Stopcock Y Adapter Self Expand Proximal Face Sterile Disposable Left Atrial Appendage - [id number] Implanted:Qt y: 1 on 08/28/2020 by Ignacio Obregon MD at [facility] Other - see comments Left: Heart [employer] Joanne 03/23/2022 [id number] / / [id number] Description:Left atrial appe ndage closure device with delivery system [employer] Inc Assurity Mri 24l25eu 2 Chamber Is-1 Connector Thk6mm Pacemaker [id number] - [id number] - [id number] Implanted:Qt y: 1 on 10/10/2022 by Ignacio Obregon MD at [facility] Pacemaker Right: Chest Wall [employer] Inc 03/04/2024 [id number] / [id number] / [id number] Medtronic Usa Inc X [id number] Resolute [place] 3.5mm 2.1-2.7fr 18mm 140cm Rapid Exchange - [id number] Implanted:Qt y: 1 on 11/26/2018 by Ildefonso Barrios MD PhD at [facility] Stent Medtronic Inc 09/05/2020 [id number] / / [id number] Cardiva Medical Inc Vascade Mvp 6-12fr Venous Closure 642-453l-55t - [id number] - [id number] Implanted:Qt y: 1 on 10/10/2022 by Ignacio Obregon MD at [facility] Vascular Closure Device Right: Femoral Vein CardiGreenpie Medical Inc 03/15/2024 [id number] / [id number] / [id number] Lens Bilateral: Eye Device Lizzy Watchman Procedure - [id number] Implanted:Qt y: 1 on 08/28/2020 by Ignacio Obregon MD at [facility] [employer] WMPERPROCDEVICE 1-3 PC / / Procedures Procedure Name Priority Date/Time Associated Diagnosis Comments DEVICE CHECK - REMOTE Routine 11/11/2024 4:00 AM CDT POCT LIPID PANEL Routine 04/22/2024 11:4 3 AM SOLAR ENERGY TECHNICIAN Lipid screening EGFR Routine 10/11/2022 4:40 [...] estimate based on prior usage) Presenting Rhythm (CA) Ventricular Sensing (VS) --- rate 60-100 Atrial [...] estimate based on prior usage) Presenting Rhythm (CA) Ventricular Sensing (VS) --- rate 60-100 Atrial Fibrillation or Flutter Arrhythmic events (AE) Longstanding persistent atrial fibrillation and/or flutter --- AT/AFburden: 100%. V rates > 110 bpm: 17% of the time during AF Anticoagulation (AC) Patient is status-post left atrial appendage occlusion device Patient is not on anticoagulant therapy Transmission Information (TI) Device Summary Report Ignacio Obregon MD CV CARDIAC SERVICES [facility] Final Result * POCT lipid panel (04/22/2024 11:43 AM SOLAR ENERGY TECHNICIAN) Cholesterol, POC 119 mg/dL HDL, POC 35 mg/dL Triglycerides, POC 102 mg/dL LDL Cholesterol POC 64 mg/dL Chol/HDL Ratio, POC 1.9 Non-HDL Cholesterol, POC 85 mg/dL Cholesterol Total, POC 119 mg/dL Capillary blood 04/22/2024 1 1:43 AM SOLAR ENERGY TECHNICIAN Sindhu Patrick NP POINT OF CARE [...] ORDERABLES Final R esult Performing Organization Address [facility] Co de Phone Number [facility] [place] [employer] [place] [address] * (ABNORMAL) Hemoglobin A1c (08/28/2022 3:07 AM CDT) Hgb A1C 6.1(H) 4.0 - 5.6 % [facility] Estimated Average Glucose 128 mg/dL [facility] Comment: The ADA recommends reporting an [...] ORDERABLES Final Re sult Performing Organization Address [facility] Co de Phone Number [facility] Department [place] [employer] [place] [address] from Last 3 Months or Most Recently Relevant to Health Maintenance [facility]ICARE [facility]ICARE [facility] MEDICARE MEDICARE [facility]ARE [facility] Advance Directives For more information, please contact: [phone] * Full Code (Latest Code Status on [...] 4:14 AM 11/07/2020 6:56 PM Care Teams Manager Bilingual Relationship Specialty Start Date End Date Nicole Sierra NP [address] [facility] [address] [place] [address] PCP - General Nurse Practitioner 07/20/23 Pinky Louise MD Consulting Physician Gastroenterology 10/02/18 Mackenzie Tobin NP [address] [address] Nurse Practitioner Medical Oncology 02/09/22 [place] [address] [place] [address] Consulting Physician Urology 08/06/22 [place] [address] [place] [address] Consulting Physician Cardiology 08/06/22
--- OUTSIDE RECORDS SUMMARY | 2025-01-06 11:13 | XMS_ITS | Clinical Summary ---
Author Organization [facility] Address [address] [place] [address] Care Team Providers Care Hockey Player Name Role Phone Parveen Escobar MD Primary Care Provider [phone] Allergies Active Allergy Reactions Criticality Noted Date [...] ) (1 - 1-dose 75+ series) 2021 COVID-19 Vaccine (2 - season) 02/04/202408/2020 INFLUENZA VACCINE (#1) 2025 Insurance MEDICARE PART A AND B [facility] [id number] Member Subscriber Plan / Payer (Ef fective 2020-Present) Name:Jackie Waddell Relation to Subscriber:Self Name:Jackie Waddell Payer ID:[id number] (NAIC) Group ID:Not on file Type:Supplemental Address: [place] [id number] Care Teams Hockey Player Relationship Specialty Start Date End Date Parveen Escobar MD [address] [place] [phone] PCP - General Internal Medicine 10/15/20
--- OUTSIDE RECORDS SUMMARY | 2025-01-06 11:13 | XMS_ITS | Clinical Summary ---
Author Organization [facility] [employer] Address [address] [place] [address] Care Team Providers Care Communication Lecturer Name Role Phone Marie Matias MD Unavailable [phone] Provider, No Pcp Primary Care Provider Unavailab le Source Comments [facility],non-owned Affiliates and Associated Physician Practices is amultiple site organization consisting of ambulatory clinics and hospital sitesin [place], [place], [place] and [place]. This disclosure is being madepursuant to the Care Everywhere program and may not contain all information available regarding this patient. Last updated 18.[facility] [employer] Allergies No known active allergies Medications * [...] 1 Tab by mouth once daily. Active Plano-3 Fatty Acids 1200 MG CAPS Take 1 [...] with morning and evening meal 5 Active Active Problems Problem Noted Date [...] rybelsus -SSI Coronary artery disease invo lving [place]ag[place] coronary artery of [place] heart without angina pectoris 11/19/2018 09/21/2023 Angina pectoris, unstable 11/07/20182023 Overview (09/21/2023): Added automatically from request for surgery [id number] H/O TIA (transient ischemic attack) and stroke [...] Visit [facility] - GI [address] [place] [address] Lazaro Gonzales MD Other cirrhosis of liver (HCC) (Primary Dx); 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); Portal hypertension (HCC) 12/05/2024 10:57 AM CDT - 12/05/2024 11:59 PM CDT Hospital Encounter [facility] OP DRAW STATION [address] [place] [address] Lazaro Gonzales MD Discharge Disposition: Home or Self Care 12/05/2024 10:52 AM CDT - 12/05/2024 10:56 AM CDT Hospital Encounter [facility] [address] [place] [address] Lazaro Gonzales MD Discharge Disposition: Home or Self Care 12/05/2024 Travel 10/15/2024 Lab Requisition [facility] [address] [place] [address] Jyotsna Tineo DO from Last 3 Months [...] on file Legal Sex Female 5:48 AM PARK WORKER Gender Identity Not on file Sexual Orientation [...] st Contact Info) Description 06/26/2025 10:15 AM PARK WORKER Appointment [facility] [address] [place] [address] Lazaro Gonzales MD [address] [place] [phone] 06/26/2025 11:30 AM PARK WORKER Office Visit [facility] - [address] [place] [address] Lazaro Gonzales MD [address] [place] [phone] Health Maintenance Due Date Last Done [...] (3 - 2023- season) 2024 09/08/2020, 07/08/2020 HEPATITIS B VACCINE [...] General On track( 025 1:35 PM CDT) Lizzie Casey, RN Note: Expected end date: ongoing Interventions: [...] finding on imaging of liver Hepatic fibrosis [id number]-[id number] BLOOD Routine 12/05/2024 11:27 AM CDT Abnormal [...] - 14.8 Seconds 12/05/2024 12:07 PM CDT [facility] INR 1.3 See Comment 12/05/2024 12:07 PM CDT [facility] Comment:The suggested therap eutic range for standard coumadin (warfarin) therapy is an INR of 2.0-3.0. For high-risk patients (Mechanical Mitral Valve Prosthesis, etc.), the suggested prophylactic therapeutic range is an INR of 2.5-3.5. Blood BLOOD SPECIMEN / Unknown Lab Venipuncture / Unknown 12/05/2024 11:27 AM CDT 12/05/2024 11:32 AM CDT us Lazaro Gonzales MD LAB - COAGULATION ORDERABLES Final Result [facility] [address] [place] [address], [facility] [phone] * EMMANUEL HEP-2 IGG BY IFA (12/05/2024 11:27 AM CDT) EMMANUEL HEp-2 IgG <1:80 <1:80 12/07/2024 11:35 PM CDT [facility] ([facility]) EMMANUEL Interpretive Comment See Note 12/07/2024 11:35 PM T [facility] ([facility]) Comment: Antinuclear antibodies by IFA negative [...] not necessarily rule out SARD. Performed By: [facility] [facility] [employer] [address] [place] [address] Senior Hardware Design Engineer: Buddy King MD, PhD CLIA Number: [id number] Blood BLOOD SPECIMEN / Unknown Lab Venipuncture / Unknown 12/05/2024 11:27 AM CDT 12/05/2024 11:31 AM CDT Lazaro Gonzales MD LAB - SEROLOGY ORDERABLES Fin al Result [facility]) [address] [place] [address] * (ABNORMAL) EMMANUEL BLOOD SCREEN W/REFLEX TITER (12/05/2024 11:27 AM CDT) EMMANUEL IgG Detected (A) None Detected 12/06/2024 10:48 PM CDT [facility] ([facility]) Comment: Anti-Nuclear Antibodies (EMMANUEL) detected by [...] dsDNA, histones, SS-A (Ro), SS-B (La), Fuentes, Fuentes/TELETYPE ADJUSTER, Scl-70, Irma-1, centromeric proteins, other antigens extracted from the HEp-2 cell nucleus. EMMANUEL DIANA assays have been reported to have lower sensitivities than EMMANUEL IFA for systemic autoimmune rheumatic diseases (SARD). Negative results do not necessarily rule out SARD. Performed By: [facility] [employer] [address] [place] [address] Senior Hardware Design Engineer: Buddy King MD, PhD CLIA Number: [id number] Blood BLOOD SPECIMEN / Unknown Lab Venipuncture / Unknown 12/05/2024 11:27 AM CDT 12/05/2024 11:31 AM CDT Lazaro Gonzales MD LAB - CHEMISTRY ORDERABLES Fi nal Result [facility] ([facility]) [address] [place] [address], [facility] * ALPHA FETOPROTEIN BLOOD TUMOR MARKER (12/05/2024 11:27 AM CDT) [facility] Alpha-Fetoprote in Tumor Marker 2.8 <=8.3 ng/mL 12/05/2024 12:23 PM CDT [facility] Comment: AFP values will vary depending on testing procedure used. Results are not comparable across different methods. AFP values obtained by [facility] using an [employer] Alinity Immunoassay. Blood BLOOD SPECIMEN / Unknown Lab Venipuncture / Unknown 12/05/2024 11:27 AM CDT 12/05/2024 11:39 AM CDT Lazaro Gonzales MD LAB - CHEMISTRY ORDERABLES Fi nal Result Performing Organization Address City/[facility]/ZIP Co de Phone Number [address] [address], [facility] [phone] * LVMZJ-2-TCXTMUREURO BLOOD (12/05/2024 11:27 AM CDT) [facility] Jmngh-0-Dxbaoj ypsin 185 90 - 200 mg/dL 12/05/2024 12:24 PM CDT [facility] Blood BLOOD SPECIMEN / Unknown Lab Venipuncture / Unknown 12/05/2024 11:27 AM CDT 12/05/2024 11:31 AM CDT Lazaro Gonzales MD LAB - CHEMISTRY ORDERABLES Fi nal Result [facility] [address] [place] [address], [facility] [phone] * (ABNORMAL) CBC WITH DIFFERENTIAL (12/05/2024 11:27 AM CDT) WBC 9.3 4.0 - 10.7 x10E9/L 12/05/2024 11:51 AM [facility] RBC Count 4.51 3.90 - 5.20 x10E12/L 12/05/2024 11:51 AM [facility] Hemoglobin 12.5 11.9 - 15.8 g/dL 12/05/2024 11:51 AM [facility] Hematocrit 38.5 34.8 - 46.1 % 12/05/2024 11:51 AM [facility] MCV 85.4 80.0 - 98.0 fL 12/05/2024 11:51 AM [facility] MCH 27.7 26.7 - 33.6 pg 12/05/2024 11:51 AM [facility] MCHC 32.5 31.7 - 36.3 g/dL 12/05/2024 11:51 AM [facility] RDW-CV 12.7 11.3 - 14.8 % 12/05/2024 11:51 AM [facility] Platelet Count 101(L) 150 - 420 x10E9/L 12/05/2024 11:51 AM [facility] MPV 12.8(H) 7.8 - 11.4 fL 12/05/2024 11:51 AM [facility] Neutrophil % 78.7(H) 41.0 - 74.0 % 12/05/2024 11:51 AM [facility] Lymphocyte % 13.1(L) 17.0 - 47.0 % 12/05/2024 11:51 AM [facility] Monocyte % 7.0 3.0 - 11.0 % 12/05/2024 11:51 AM [facility] Eosinophil % 0.4 0.0 - 7.0 % 12/05/2024 11:51 AM [facility] Basophil % 0.4 0.0 - 1.6 % 12/05/2024 11:51 AM [facility] Immature Granulocytes % 0.4 0.0 - 1.0 % 12/05/2024 11:51 AM [facility] Neutrophil Absolute 7.35 1.60 - 7.50 x10E9/L 12/05/2024 11:51 AM [facility] Lymphocyte Absolute 1.22 1.00 - 4.40 x10E9/L 12/05/2024 11:51 AM [facility] Monocyte Absolute 0.65 0.15 - 1.00 x10E9/L 12/05/2024 11:51 AM [facility] Eosinophil Absolute 0.04 0.00 - 0.60 x10E9/L 12/05/2024 11:51 AM [facility] Basophil Absolute 0.04 0.00 - 0.13 x10E9/L 12/05/2024 11:51 AM [facility] Blood BLOOD SPECIMEN / Unknown Lab Venipuncture / Unknown 12/05/2024 11:27 AM CDT 12/05/2024 11:39 AM CDT us Lazaro Gonzales MD LAB - HEMATOLOGY ORDERABLES F inal Result [facility] [address] [place] [address], [facility] [phone] * (ABNORMAL) COMPREHENSIVE METABOLIC PANEL (12/05/2024 11:27 AM CDT) BUN 25 7 - 26 mg/dL 12/05/2024 12:16 PM [facility] Creatinine 1.22(H) 0.56 - 0.96 mg/dL 12/05/2024 12:16 PM [facility] Sodium 139 136 - 145 mmol/L 12/05/2024 12:16 PM [facility] Potassium 3.5 3.5 - 4.5 mmol/L 12/05/2024 12:16 PM [facility] Chloride 105 98 - 107 mmol/L 12/05/2024 12:16 PM [facility] CO2 30(H) 22 - 29 mmol/L 12/05/2024 12:16 PM [facility] Glucose 136(H) 70 - 99 mg/dL 12/05/2024 12:16 PM [facility] Calcium 9.1 8.4 - 10.2 mg/dL 12/05/2024 12:16 PM [facility] Protein Total 7.4 6.0 - 8.3 g/dL 12/05/2024 12:16 PM [facility] Albumin 3.5 3.4 - 5.0 g/dL 12/05/2024 12:16 PM [facility] Bilirubin Total 0.6 0.2 - 1.2 mg/dL 12/05/2024 12:16 PM [facility] Alkaline Phosphatase 130 40 - 150 U/L 12/05/2024 12:16 PM [facility] ALT 11 5 - 55 U/L 12/05/2024 12:16 PM [facility] AST 20 5 - 34 U/L 12/05/2024 12:16 PM [facility] Anion Gap 4(L) 6 - 16 12/05/2024 12:16 PM [facility] BUN/Creatinine Ratio 20 7 - 23 12/05/2024 12:16 PM [facility] Osmolality Calculated 294 275 - 295 mOsm/kg 12/05/2024 12:16 PM [facility] Albumin/Globulin Ratio 0.9(L) 1.1 - 2.3 12/05/2024 12:16 PM [facility] eGFR by CKD-EPI 45(L) >=90 mL/min/1.7 3 m2 12/05/2024 12:16 PM [facility] Comment:Estimated Glomerular Filtration Rate (eGFR) calculated using the CKD-EPI Creatinine Equation (2020), per the National Kidney Foundation and [place] Society of Neph[employer] recommendations. Blood BLOOD SPECIMEN / Unknown Lab Venipuncture / Unknown 12/05/2024 11:27 AM CDT 12/05/2024 11:40 AM CDT us Lazaro Gonzales MD LAB - CHEMISTRY ORDERABLES Fi nal Result [facility] [address] [place] [address], [facility] [phone] * BILIRUBIN DIRECT (12/05/2024 11:27 AM CDT) Bilirubin Conjugated 0.2 0.1 - 0.5 mg/dL 12/05/2024 12:16 PM CDT [facility] Blood BLOOD SPECIMEN / Unknown Lab Venipuncture / Unknown 12/05/2024 11:27 AM CDT 12/05/2024 11:40 AM CDT Lazaro Gonzales MD LAB - CHEMISTRY ORDERABLES Fi nal Result Performing Organization Address City/[facility] Co de Phone Number [address] [address], [facility] [phone] * IGG BLOOD (12/05/2024 11:27 AM CDT) IgG 1,259 767 - 1,590 mg/dL 12/05/2024 12:23 PM CDT [facility] Blood BLOOD SPECIMEN / Unknown Lab Venipuncture / Unknown 12/05/2024 11:27 AM CDT 12/05/2024 11:31 AM CDT Lazaro Gonzales MD LAB - CHEMISTRY ORDERABLES Fi nal Result Performing Organization Address [facility] de Phone Number [address] [address], [facility] [phone] * US Abdomen Limited (12/05/2024 11:23 AM [...] DATE/TIME OF EXAM: 12/05/2024 11:23 AM, LOCATION [facility] INDICATION: R93.2: Abnormal finding on imaging of [...] DATE/TIME OF EXAM: 12/05/2024 11:23 AM, LOCATION [facility] INDICATION: R93.2: Abnormal finding on imaging of [...] AM CDT) Case Report Dermatopathology Report Case: [id number] Authorizing Provider: Jyotsna Tineo DO Collected: 10/15/2024 10:25 AM Ordering Location: [facility] - Received: 10/16/2024 07:34 AM [facility] Pathologist: Shaunna Garcia MD Specimen: Skin, left hand 05/15/202 5 4:28 PM CDT DERMATOPATHOLOGY LABORATORY Final Diagnosis [...] determined by the Dermatopathology Laboratory at [facility], directed by Dr. Blair Garcia. These tests need not be, and therefore are not, approved by the [place] Food and Drug Administration. The tests are used for clinical purposes. Billing Codes Specimen Charges Stain Charges 40081 1 4:28 PM CDT DERMATOPATHOLOGY LABORATORY Embedded Images 4:28 PM CDT [facility]OPATHOLOGY LAB[facility] Pathology/Cytolo gy TISSUE SPECIMEN FROM SKIN / Unknown 10/15/2024 10:25 AM CDT 10/16/2024 7:34 AM CDT us Jyotsna Tineo DO LAB - PATHOLOGY/CYTOLOGY ORDERABLES Final Result DERMATOPATHOLOGY LABORATORY [facility] - Department of Dermatology [address] [phone] * HEPATITIS C ANTIBODY (09/19/2023 3:44 PM CDT) [facility] Hepatitis C Antibody Non-react ruel Non-reac tive 09/19/2023 5:23 PM CDT [facility] Comment:Hepatitis C Antibody screen indicates [...] 3:44 PM CDT 09/19/2023 3:58 PM CDT us Lazaro Gonzales MD LAB - CHEMISTRY ORDERABLES nal Result [facility] [address] [place] [address], [facility] [phone] * (ABNORMAL) HEMOGLOBIN A1C (03/30/2015 12:13 PM CDT) [facility] Hemoglobin A1c 7.4(H) 4.2 - 5.8 % 03/30/2015 10:32 PM CDT [facility] Estimated Average Glucose 166 mg/dL 03/30/2015 10:32 PM CDT [facility] Whole Blood BLOOD SPECIMEN WITH EDTA / Unknown Venipuncture / Unknown 03/30/2015 12:13 PM CDT 03/30/2015 12:21 PM CDT Narrative [facility] - 03/30/2015 10:32 PM CDT [place] [employer] recommended the following cutoff levels: [...] blood transfusion, kidney failure or liver disease. us Ordering Provider Unlisted MD LAB - CHEMISTRY OR DERABLES Final Result Performing Organization Address City/[facility]/ZIP Co de Phone Number [facility] [address] * MICROALBUMIN URINE RANDOM (03/12/2014 11:04 AM CDT) Microalbumin Urine 20.0 0.0 - 20.0 mg/dL 03/12/2014 12:50 PM CDT [facility] Urine URINE / Unknown Venipuncture / Unknown 03/12/2014 11:04 AM CDT 03/12/2014 11:16 AM CDT us Dk Kong MD LAB - URINE CHEMISTRY ORDERA BLES Final Result Performing Organization Address [facility] Co de Phone Number [facility] [address] from Last 3 Months or Most Recently Relevant to Health Maintenance Insurance MEDICARE [facility] MEDICARE [facility] MEDICARE [facility] MEDICARE [facility] Advance Directives * Full Code (Latest Code Status on File) Date Activated Date Inactivated Comments 08/04/2014 10:20 PM 08/06/2014 5:15 PM Care Teams Communication Lecturer Relationship Specialty Start Date End Date Provider, No Pcp PCP - General 12/03/24 Marie Matias MD [address] [place] [address] Internal Medicine 11/23/21
[2025-01-06 11:30] LABS: Hemoglobin A1C 6.8 % (<5.7)
[2025-01-06 11:47] LABS: Alanine Aminotransferase 16 U/L (6-35); Albumin Level 3.8 g/dL (3.5-5.1); Alkaline Phosphatase 101 U/L (38-126); Anion Gap 5 mmol/L (4-12); Aspartate Amino Transferase 37 U/L (14-36); Bilirubin,Total 0.6 mg/dL (0.2-1.3); Blood Urea Nitrogen 18 mg/dL (7-17); Calcium 9.4 mg/dL (8.4-10.2); Carbon Dioxide 32 mmol/L (22-30); Chloride 102 mmol/L (98-107); Cholesterol 113 mg/dL (0-200); Estimated Glomerular Filt Rate 44; Glucose 125 mg/dL (65-110); HDL Direct 33 mg/dL; Iron 60 ug/dL (37-170); Potassium 4.0 mmol/L (3.4-5.0); Sodium 139 mmol/L (137-145); Total Protein 7.1 g/dL (6.3-8.2); Triglycerides 122 mg/dL (<150)
[2025-01-06 11:47] LABS: MALB Creatinine Ratio < 28.2 mg/g (0-30)
[2025-01-06 11:58] LABS: Percent Iron Saturation 21 % (20-50)
[2025-01-06 12:06] LABS: Free T3 3.52 pg/mL (2.45-5.93); Free T4 Free Thyroxine 1.42 ng/dL (0.78-2.19)
[2025-01-06 12:23] LABS: Thyroid Stimulating Hormone 0.439 uIU/mL (0.465-4.680)
[2025-01-06 12:29] LABS: Ferritin 214.00 ng/mL (11.1-264)
== END 2025-01-06 10:46 | disposition home or self-care (01) ==
PROVIDERS: PCP Nurse Practitioner Family; Visit Provider Nurse Practitioner Family
DX: I11.0 Hypertensive heart disease with heart failure (principal); I50.22 Chronic systolic (congestive) heart failure; E11.65 Type 2 diabetes mellitus with hyperglycemia; D50.8 Other iron deficiency anemias; D69.6 Thrombocytopenia, unspecified; R79.89 Other specified abnormal findings of blood chemistry; R04.1 Hemorrhage from throat
CPT/HCPCS: 36415; 80053; 80061; 82043; 82728; 83036; 83540; 83550; 84439; 84443; 84481

== ENCOUNTER 2025-01-21 12:30 | Outpatient (CLI) | payer MEDICARE, SELFPAY ==
--- NOTE | ~2025-01-21 | PE_ITS ---
EXAMINATION: PET skull to mid thigh DATE: 01/21/2025 14:51 INDICATION: Solitary pulmonary nodule TECHNIQUE: Blood glucose level was 107 mg/dL. 8.873 mCi of 18-fluorodeoxyglucose (18-FDG) was administered i.v. Low dose computed tomography (CT) images were acquired from the base of the brain to the proximal thighs for attenuation correction and anatomic localization. Positron emission tomography (PET) images were acquired in the same distribution beginning 60 minutes after injection. Images including fused PET/CT images were reconstructed in axial, coronal, and sagittal planes. Automated exposure control technique was employed. The dose- length product was 996.08mGy-cm. COMPARISON: CT dated 08/09/2024 and 03/26/2024 FINDINGS: Head/neck: There is symmetric increased activity in the oral cavity, palatine tonsils and ocular muscles without CT correlate, likely physiologic. No abnormal activity associated with an approximately 2 cm hypodense nodule with coarse calcifications in the left thyroid lobe. No pathologically enlarged cervical ly mphadenopathy or suspicious foci of increased FDG uptake in the visualized head or neck. Chest: 9 x 7 mm left lower lobe nodule without evident FDG activity which appears unchanged in size when compared with study dated 11/19/2023. Tiny calcified left lower lobe nodule along with calcified left hilar and mediastinal lymph nodes consistent with old granulomatous disease. No other suspicious pulmonary nodules, pneumonia, pulmonary edema or pleural effusion. Cardiomegaly. No pericardial effusion. Atherosclerotic coronary artery calcification. Left atrial appendage occlusion device. Dual lead pacemaker/AICD seen with leads projecting over the expected locations of the right atrium and right ventricle. Small focus of mild increased uptake in the left hilar region without evident pathologically enlarged lymphadenopathy change in contours of the hilum when compared with the earlier contrast-enhanced CT. No other pathologically enlarged or FDG avid thoracic lymphadenopathy. There are peripherally calcified heterotopic ossifications at the bilateral breasts. There is mild increased uptake with maximal SUV of 4.4 cm cyst with the heterotopic ossification in the right breast which appears unchanged dating back to 11/19/2023. No significant increased FDG uptake associated with a small approximately 2.5 x 1.4 cm triangular soft tissue density masses with spiculated margins in the deep lower outer left breast which is without significant change since 04/28/2022. Abdomen/pelvis/proximal thighs: Status post right nephrectomy. Physiologic renal accumulation and excretion of FDG activity in the left kidney, bladder, along portions of the left ureters as well as the distal urethra. Normal degree and heterogenous pattern of increased uptake throughout the liver without radiologic correlate or dominant FDG avid lesion. The gallbladder, pancreas, spleen and bilateral adrenal glands are normal. Mild uptake scattered throughout the bowels without radiologic correlate, also likely physiologic. There are a few small foci of groundglass density in the subcutaneous fat of the anterior abdominal wall the largest measuring 2.0 x 0.8 cm on the left infracostal margin which demonstrates mild uptake with maximal SUV of 4.2 which is new since CT dated 08/09/2024. Remaining lesions all measure less than 1 cm, one with additional mild increased FDG uptake with maximal SUV of 2.5 at the anterolateral left pelvic wall and a few others without FDG uptake. No other abnormal foci of increased FDG uptake or pathologically enlarged lymphadenopathy in the abdomen, pelvis or proximal thighs. Musculoskeletal: Moderate cervical, thoracic and lumbar spondylosis. There is mild diffuse marrow uptake in the spine and pelvis with maximal SUV values of up to 4.5 by without corresponding lytic or blastic bone lesions and this likely physiologic. Mild likely degenerative uptake at the radial aspect of the bilateral carpi. IMPRESSION: 1. No abnormal uptake associated with a 9 x 7 mm left lower lobe nodule which is unchanged in size since 11/19/2023 which favors a benign etiology. Recommend additional 11/10/2011 month follow-up chest CT 2. 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 Recommend continued screening mammography along prior schedule. 3. Mild uptake at the left hilum but without evident pathologically enlarged lymphadenopathy in this most likely reactive. This can be reassessed at the same time as the pulmonary nodule with chest CT, preferably with contrast. 4. Mild uptake associated with a few small groundglass densities in the anterior subcutaneous fat which are most likely inflammatory in etiology such as in the setting of subcutaneous injections or fat necrosis. Reviewed, dictated and finalized at location [facility] IMPRESSION: 1. No abnormal uptake associated with a 9 x 7 mm left lower lobe nodule which i s unchanged in size since 11/19/2023 which favors a benign etiology. Recommend a dditional 11/10/2011 month follow-up chest CT 2. 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 Recommend continued screening mammogr aphy along prior schedule. 3. Mild uptake at the left hilum but without evident pathologically enlarged ly mphadenopathy in this most likely reactive. This can be reassessed at the same time as the pulmonary nodule with chest CT, preferably with contrast. 4. Mild uptake associated with a few small groundglass densities in the anterio r subcutaneous fat which are most likely inflammatory in etiology such as in th e setting of subcutaneous injections or fat necrosis.
--- OUTSIDE RECORDS SUMMARY | 2025-01-21 12:33 | XMS_ITS ---
Author Organization [facility] [address] Address [address] [place] [address] Care Team Providers Care Youth Specialist Name Role Phone Pinky Louise MD Unavailable [phone] Mackenzie Tobin NP Unavailable [phone] Loki Viramontes MD Unavailable [phone] Frank Moses MD Unavailable Nicole Sierra NP Primary Care Provider [phone] Active Problems Problem Noted Date Diagnosed Date Sensorineural hearing loss (SNHL) of both ears 0 06/20/2024 Dizziness and giddiness 06/20/2024 S/P placement of cardiac pacemaker 10/20/2022 Assessment & Plan (07/11/2024 3:34 PM BOARD WINDER): -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 as [...] (06/27/2022): Added automatically from request for surgery [id number] A-fib 02/14/2022 Assessment & Plan (10/11/2022 11:47 [...] (07/11/2019): Added automatically from request for surgery [id number] Coronary artery disease invo lving [place] coronary artery of [place] heart without angina pectoris 11/19/2018 Angina pectoris, unstable 11/07/2018 Overview (11/07/2018): Added automatically from request for surgery [id number] GI bleed 08/06/2018 Assessment & Plan (08/29/2020 [...] a associated with type 2 diabetes mellitus ([facility]/HCC) 07/21/2015 Overview (09/09/2016): Type 2 diabetes [...] fibrillation Assessment & Plan (07/11/2024 3:39 PM BOARD WINDER): -Persistent AF and bradycardia s/p dual chamber [...] she is developing tachycardia induced cardiomyopathy -Beta alaln titration limited by BP. Continue coreg 25 [...] EF 72%, fixed apical defect c/w prior [place]. Assessment & Plan (08/28/2020 7:53 PM CDT): - TTE in 09/2018 w/ G3DD. Home metop XL 12.5, losartan 25, lasix 20. - PCI 2018 w/ 1 stent to LAD. MPI stress 05/2020 w/ EF 72%, fixed apical defect c/w prior [place]. Essential hypertension 09/13/201910/20 Assessment & Plan (02/16/2022 [...]
--- OUTSIDE RECORDS SUMMARY | 2025-01-21 12:34 | XMS_ITS | Encounter Summary ---
Author Organization [facility] Address [address] [place], [place] [address] [address] Care Team Providers Care Skin Care Instructor Name Role Phone Marie Matias MD Unavailable [phone] Provider, No Pcp Primary Care Provider Unavailab le Reason for Visit * Reason Comments Medication Problem Encounter Details Date Type Department Care Team (Late st Contact Info) Description 10/18/2023 Telephone [facility] - [address] [place] [phone] Mariela Mcallister RN Medication Problem Social History Tobacco Use Types Packs/Day Years Used Date Smoking Tobacco: Never Smokeless Tobacco: Never Alcohol Use Standard Drinks/Week Comments No 0 (1 standard drink = 0.6 oz pur e alcohol) Comments Unknown Sex and Gender Information Value Date Recorded Sex Assigned at Not on file Legal Sex Female 5:48 AM BOOTMAKER HAND Gender Identity Not on file Sexual Orientation [...] of Assessment Author No 08/06/2014 2:19 PM BOOTMAKER HAND Erika Thornton, RN documented as of this encounter Mental Status * Does person have difficulty concentrating/remembering/making decisions? Answer Entry Date Author No 08/06/2014 2:19 PM BOOTMAKER HAND Erika Thornton RN documented in this encounter Miscellaneous Notes * Telephone Encounter - Mariela Mcallister RN - 10/18/2023 2:15 PM CDT Call received from pt to report f/u with data processing systems consultant. Inquired about a change in medication from metoprolol succinate to carvedilol BID. Quality Assurance Director prefers pt to stay on metoprolol succinate. Dr. Gonzales notified. documented in this encounter Plan of Treatment Upcoming Encounters Date Type Department Care Team (Late st Contact Info) Description 06/26/2025 10:15 AM BOOTMAKER HAND Appoint[address] [facility] [address] [place] [address] Lazaro Gonzales MD [address] [place] [address] 06/26/2025 11:30 AM BOOTMAKER HAND Office Visit [facility] - [address] [facility], [place] [address] Lazaro Gonzales MD [address] [place] [address] documented as of this encounter Visit Diagnoses Not on filedocumented in this encounter Care Teams Skin Care Instructor Relationship Specialty Start Date End Date Provider, No Pcp PCP - General 12/03/24 Marie Matias MD [address] [place] [phone] Internal Medicine 11/23/21 documented as of this encounter
--- OUTSIDE RECORDS SUMMARY | 2025-01-21 12:34 | XMS_ITS | Clinical Summary ---
Author Organization [facility] Address [address] [place] [address] Care Team Providers Care Coffee Weigher Name Role Phone Marie Matias MD Unavailable [phone] Provider, No Pcp Primary Care Provider Unavailab le Source Comments [facility],non-owned Affiliates and Associated Physician Practices is amultiple site organization consisting of ambulatory clinics and hospital sitesin [place], [place], [place] and [place]. This disclosure is being madepursuant to the Care Everywhere program and may not contain all information available regarding this patient. Last updated 18.[facility] Allergies No known active allergies Medications * [...] 1 Tab by mouth once daily. 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 11/19/2018 09/21/2023 Angina pectoris, unstable 11/07/20182023 Overview (09/21/2023): Added automatically from request for surgery [id number] H/O TIA (transient ischemic attack) and stroke [...] Description 12/05/2024 1:00 PM CDT Office Visit [facility] - GI [address] [facility] [place] [address] Lazaro Gonzales MD Other cirrhosis of liver (HCC) (Primary Dx); 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); Portal hypertension (HCC) 12/05/2024 10:57 AM CDT - 12/05/2024 11:59 PM CDT Hospital Encounter [facility] LAB OP DRAW STATION [address] [place] [address] Lazaro Gonzales MD Discharge Disposition: Home or Self Care 12/05/2024 10:52 AM CDT - 12/05/2024 10:56 AM CDT Hospital Encounter [facility] US [address] [place] [address] Lazaro Gonzales MD Discharge Disposition: Home or Self Care 12/05/2024 Travel from Last 3 Months Immunizations Immunization Administration [...] on file Legal Sex Female 5:48 AM INFORMIX DEVELOPER Gender Identity Not on file Sexual Orientation [...] st Contact Info) Description 06/26/2025 10:15 AM INFORMIX DEVELOPER Appointment [facility] [address] [place] [address] Lazaro Gonzales MD [address] [place] [phone] 06/26/2025 11:30 AM INFORMIX DEVELOPER Office Visit [facility] - [address], [place] [address] Lazaro Gonzales MD [address] [place] [phone] Health Maintenance Due Date Last Done [...] finding on imaging of liver Hepatic fibrosis [id number] BLOOD Routine 12/05/2024 11:27 AM CDT Abnormal finding on imaging of liver Hepatic fibrosis ALPHA FETOPROTEIN BLOOD TUMOR MARKER Routine 12/05/2024 11:27 AM CDT Abnormal finding on imaging of liver Hepatic fibrosis BILIRUBIN DIRECT Routine 12/05/2024 11:2 7 AM CDT Abnormal finding on imaging of liver Hepatic fibrosis PT-INR [facility] Routine 12/05/2024 11:27 AM CDT Abnormal finding on imaging of liver Hepatic fibrosis COMPREHENSIVE METABOLIC PANEL Routine 12/05/2024 11:27 AM CDT Abnormal finding on imaging of liver Hepatic fibrosis CBC W AUTO DIFFERENTIAL Routine 12/05/2024 11:27 AM CDT Abnormal finding on imaging of liver Hepatic fibrosis US ABDOMEN LIMITED Routine 12/05/2024 11 :23 AM CDT Abnormal finding on imaging of liver Hepatic fibrosis HEPATITIS C ANTIBODY Routine 09/19/2023 3:44 PM [...] to Health Maintenance Results * (ABNORMAL) PT-INR [facility] (12/05/2024 11:27 AM CDT) PT 15.5(H) 12.1 - 14.8 Seconds 12/05/2024 12:07 PM CDT [facility] INR 1.3 See Comment 12/05/2024 12:07 PM T [facility] Comment:The suggested therap eutic range for standard coumadin (warfarin) therapy is an INR of 2.0-3.0. For high-risk patients (Mechanical Mitral Valve Prosthesis, etc.), the suggested prophylactic therapeutic range is an INR of 2.5-3.5. Blood BLOOD SPECIMEN / Unknown Lab Venipuncture / Unknown 12/05/2024 11:27 AM CDT 12/05/2024 11:32 AM CDT us Lazaro Gonzales MD LAB - COAGULATION ORDERABLES Final Result [facility]ORATORY [address] [address], [facility] [phone] * EMMANUEL HEP-2 IGG BY IFA (12/05/2024 11:27 AM CDT) EMMANUEL HEp-2 IgG <1:80 <1:80 12/07/2024 11:35 PM CDT [place] ([facility]) EMMANUEL Interpretive Comment See Note 12/07/2024 11:35 PM CDT [facility] ([facility]) Comment: Antinuclear antibodies by IFA negative for [...] not necessarily rule out SARD. Performed By: [facility] [address] [place] [address] Knife Finisher: Buddy King MD, PhD CLIA Number: [id number] Blood BLOOD SPECIMEN / Unknown Lab Venipuncture / Unknown 12/05/2024 11:27 AM CDT 12/05/2024 11:31 AM CDT Result [facility] Lazaro Gonzales MD LAB - SEROLOGY ORDERABLES Fin al Result Performing Organization Address City/[facility] Hospital/[facility] Co de Phone Number [facility]) [address] [place] [address] * (ABNORMAL) EMMANUEL BLOOD SCREEN W/REFLEX TITER (12/05/2024 11:27 AM CDT) EMMANUEL IgG Detected (A) None Detected 12/06/2024 10:48 PM CDT [facility] ([facility]) Comment: Anti-Nuclear Antibodies (EMMANUEL) detected by DIANA. [...] dsDNA, histones, SS-A (Ro), SS-B (La), Fuentes, Fuentes/BILINGUAL TEACHER ASSISTANT, Scl-70, Irma-1, centromeric proteins, other antigens extracted from the HEp-2 cell nucleus. EMMANUEL DIANA assays have been reported to have lower sensitivities than EMMANUEL IFA for systemic autoimmune rheumatic diseases (SARD). Negative results do not necessarily rule out SARD. Performed By: [facility] [address] [place] [address] Knife Finisher: Buddy King MD, PhD CLIA Number: [id number] Blood BLOOD SPECIMEN / Unknown Lab Venipuncture / Unknown 12/05/2024 11:27 AM CDT 12/05/2024 11:31 AM CDT Lazaro Gonzales MD LAB - CHEMISTRY ORDERABLES Fi nal Result Performing Organization Address [facility] Hospital/ZIP Co de Phone Number [facility] ([facility]) [address] [place] [address] * ALPHA FETOPROTEIN BLOOD TUMOR MARKER (12/05/2024 11:27 AM CDT) Pathologist [facility] Alpha-Fetoprote in Tumor Marker 2.8 <=8.3 ng/mL 12/05/2024 12:23 PM CDT [facility] Comment: AFP values will vary depending on testing procedure used. Results are not comparable across different methods. AFP values obtained by [facility] using an Rivas Alinity Immunoassay. Blood BLOOD SPECIMEN / Unknown Lab Venipuncture / Unknown 12/05/2024 11:27 AM CDT 12/05/2024 11:39 AM CDT Lazaro Gonzales MD LAB - CHEMISTRY ORDERABLES Fi nal Result Performing Organization Address City/[facility] Hospital/ZIP Co de Phone Number [address] [address], [facility] [phone] * [id number]-[id number] BLOOD (12/05/2024 11:27 AM CDT) [facility] Xhdzv-1-Hdpjqd ypsin 185 90 - 200 mg/dL 12/05/2024 12:24 PM CDT [facility] Blood BLOOD SPECIMEN / Unknown Lab Venipuncture / Unknown 12/05/2024 11:27 AM CDT 12/05/2024 11:31 AM CDT us Lazaro Gonzales MD LAB - CHEMISTRY ORDERABLES Fi nal Result [address] [address], [facility] [phone] * (ABNORMAL) CBC WITH DIFFERENTIAL (12/05/2024 11:27 AM CDT) [facility] WBC 9.3 4.0 - 10.7 x10E9/L 12/05/2024 11:51 AM CDT [facility] RBC Count 4.51 3.90 - 5.20 x10E12/L 12/05/2024 11:51 AM CDT [facility] Hemoglobin 12.5 11.9 - 15.8 g/dL 12/05/2024 11:51 AM [facility] Hematocrit 38.5 34.8 - 46.1 % 12/05/2024 11:51 AM [facility] MCV 85.4 80.0 - 98.0 fL 12/05/2024 11:51 AM [facility] MCH 27.7 26.7 - 33.6 pg 12/05/2024 11:51 AM [facility] MCHC 32.5 31.7 - 36.3 g/dL 12/05/2024 11:51 AM [facility] RDW-CV 12.7 11.3 - 14.8 % 12/05/2024 11:51 AM [facility] Platelet Count 101(L) 150 - 420 x10E9/L 12/05/2024 11:51 AM [facility] MPV 12.8(H) 7.8 - 11.4 fL 12/05/2024 11:51 AM [facility] Neutrophil % 78.7(H) 41.0 - 74.0 % 12/05/2024 11:51 AM [facility] Lymphocyte % 13.1(L) 17.0 - 47.0 % 12/05/2024 11:51 AM [facility] Monocyte % 7.0 3.0 - 11.0 % 12/05/2024 11:51 AM [facility] Eosinophil % 0.4 0.0 - 7.0 % 12/05/2024 11:51 AM [facility] Basophil % 0.4 0.0 - 1.6 % 12/05/2024 11:51 AM [facility] Immature Granulocytes % 0.4 0.0 - 1.0 % 12/05/2024 11:51 AM [facility] Neutrophil Absolute 7.35 1.60 - 7.50 x10E9/L 12/05/2024 11:51 AM [facility] Lymphocyte Absolute 1.22 1.00 - 4.40 x10E9/L 12/05/2024 11:51 AM [facility] Monocyte Absolute 0.65 0.15 - 1.00 x10E9/L 12/05/2024 11:51 AM [facility] Eosinophil Absolute 0.04 0.00 - 0.60 x10E9/L 12/05/2024 11:51 AM [facility] Basophil Absolute 0.04 0.00 - 0.13 x10E9/L 12/05/2024 11:51 AM [facility] Blood BLOOD SPECIMEN / Unknown Lab Venipuncture / Unknown 12/05/2024 11:27 AM CDT 12/05/2024 11:39 AM CDT us Lazaro Gonzales MD LAB - HEMATOLOGY ORDERABLES F inal Result [address] [address], [facility] [phone] * (ABNORMAL) COMPREHENSIVE METABOLIC PANEL (12/05/2024 11:27 AM CDT) BUN 25 7 - 26 mg/dL 12/05/2024 12:16 PM [facility] Creatinine 1.22(H) 0.56 - 0.96 mg/dL 12/05/2024 12:16 PM [facility] Sodium 139 136 - 145 mmol/L 12/05/2024 12:16 PM [facility] Potassium 3.5 3.5 - 4.5 mmol/L 12/05/2024 12:16 PM [facility] Chloride 105 98 - 107 mmol/L 12/05/2024 12:16 PM [facility] CO2 30(H) 22 - 29 mmol/L 12/05/2024 12:16 PM [facility] Glucose 136(H) 70 - 99 mg/dL 12/05/2024 12:16 PM [facility] Calcium 9.1 8.4 - 10.2 mg/dL 12/05/2024 12:16 PM [facility] Protein Total 7.4 6.0 - 8.3 g/dL 12/05/2024 12:16 PM [facility] Albumin 3.5 3.4 - 5.0 g/dL 12/05/2024 12:16 PM [facility] Bilirubin Total 0.6 0.2 - 1.2 mg/dL 12/05/2024 12:16 PM [facility] Alkaline Phosphatase 130 40 - 150 U/L 12/05/2024 12:16 PM [facility] ALT 11 5 - 55 U/L 12/05/2024 12:16 PM [facility] AST 20 5 - 34 U/L 12/05/2024 12:16 PM [facility] Anion Gap 4(L) 6 - 16 12/05/2024 12:16 PM [facility] BUN/Creatinine Ratio 20 7 - 23 12/05/2024 12:16 PM [facility] Osmolality Calculated 294 275 - 295 mOsm/kg 12/05/2024 12:16 PM [facility] Albumin/Globulin Ratio 0.9(L) 1.1 - 2.3 12/05/2024 12:16 PM [facility] eGFR by CKD-EPI 45(L) >=90 mL/min/1.7 3 m2 12/05/2024 12:16 PM [facility] Comment:Estimated Glomerular Filtration Rate (eGFR) calculated using the CKD-EPI Creatinine Equation (2020), per the National Kidney Foundation and [place] Society of Nephrology recommendations. Blood BLOOD SPECIMEN / Unknown Lab Venipuncture / Unknown 12/05/2024 11:27 AM CDT 12/05/2024 11:40 AM T Lazaro Gonzales MD LAB - CHEMISTRY ORDERABLES Fi nal Result [facility] [address] [place] [address], [facility] [phone] * BILIRUBIN DIRECT (12/05/2024 11:27 AM CDT) Bilirubin Conjugated 0.2 0.1 - 0.5 mg/dL 12/05/2024 12:16 PM [facility] Blood BLOOD SPECIMEN / Unknown Lab Venipuncture / Unknown 12/05/2024 11:27 AM CDT 12/05/2024 11:40 AM CDT Lazaro Gonzales MD LAB - CHEMISTRY ORDERABLES Fi nal Result [address] [address], [place] [phone] * IGG BLOOD (12/05/2024 11:27 AM CDT) IgG 1,259 767 - 1,590 mg/dL 12/05/2024 12:23 PM CDT [facility] Blood BLOOD SPECIMEN / Unknown Lab Venipuncture / Unknown 12/05/2024 11:27 AM CDT 12/05/2024 11:31 AM CDT Lazaro Gonzales MD LAB - CHEMISTRY ORDERABLES Fi nal Result Performing Organization Address City/[facility] Hospital/ZIP Co de Phone Number [address] [address], [place] [phone] * US Abdomen Limited (12/05/2024 11:23 AM [...] DATE/TIME OF EXAM: 12/05/2024 11:23 AM, LOCATION [facility] INDICATION: R93.2: Abnormal finding on imaging of [...] DATE/TIME OF EXAM: 12/05/2024 11:23 AM, LOCATION [facility] INDICATION: R93.2: Abnormal finding on imaging of [...] Provider: Jonathan Padilla MD on 512:04 PM Lazaro Gonzales MD US ORDERABLES Final Result * HEPATITIS C ANTIBODY (09/19/2023 3:44 PM CDT) Hepatitis C Antibody Non-react ruel Non-reac tive 09/19/2023 5:23 PM CDT [facility] Comment:Hepatitis C Antibody screen indicates [...] LAB - CHEMISTRY ORDERABLES Fi nal Result [facility] [place] [address], [facility] [phone] * (ABNORMAL) HEMOGLOBIN A1C (03/30/2015 12:13 PM CDT) Hemoglobin A1c 7.4(H) 4.2 - 5.8 % 03/30/2015 10:32 PM CDT [facility] Estimated Average Glucose 166 mg/dL 03/30/2015 10:32 PM CDT [facility] Whole Blood BLOOD SPECIMEN WITH EDTA / Unknown Venipuncture / Unknown 03/30/2015 12:13 PM CDT 03/30/2015 12:21 PM CDT Narrative [facility] - 03/30/2015 10:32 PM CDT [place] [employer] recommended the following cutoff levels: [...] OR DERABLES Final Result Performing Organization Address [facility] Co de Phone Number [facility] [address] * MICROALBUMIN URINE RANDOM (03/12/2014 11:04 AM CDT) Microalbumin Urine 20.0 0.0 - 20.0 mg/dL 03/12/2014 12:50 PM CDT [facility] Urine URINE / Unknown Venipuncture / Unknown 03/12/2014 11:04 AM CDT 03/12/2014 11:16 AM CDT Dk Kong MD LAB - URINE CHEMISTRY ORDERA BLES Final Result Performing Organization Address [facility]/ZIP Co de Phone Number [facility] [address] from Last 3 Months or Most Recently Relevant to Health Maintenance Insurance MEDICARE [facility] MEDICARE [facility] MEDICARE [facility] MEDICARE [facility] Advance Directives * Full Code (Latest Code Status on File) Date Activated Date Inactivated Comments 08/04/2014 10:20 PM 08/06/2014 5:15 PM Care Teams Coffee Weigher Relationship Specialty Start Date End Date Provider, No Pcp PCP - General 12/03/24 Marie Matias MD [address] [place] [address] Internal Medicine 11/23/21
--- OUTSIDE RECORDS SUMMARY | 2025-01-21 12:34 | XMS_ITS | Encounter Summary ---
Author Organization [facility] Address [address] [place] [address] Care Team Providers Care Melting Supervisor Name Role Phone Marie Matias MD Unavailable [phone] Provider, No Pcp Primary Care Provider Unavailab le Encounter Details Date Type Department Care Team (Late st Contact Info) Description 11/22/2022 Lab Requisition [facility] - [facility] Lab [address] [facility] [facility] [place] [address] Jyotsna Tineo, [address] [facility] [address] [place] [address] Social History Tobacco Use Types Packs/Day Years Used Date Smoking Tobacco: Never Smokeless Tobacco: Never Alcohol Use Standard Drinks/Week Comments No 0 (1 standard drink = 0.6 oz pur e alcohol) Comments Unknown Sex and Gender Information Value Date Recorded Sex Assigned at Not on file Legal Sex Female 5:48 AM LEGAL SERVICE SPECIALIST Gender Identity Not on file Sexual [...] of Assessment Author No 08/06/2014 2:19 PM LEGAL SERVICE SPECIALIST Erika Thornton, RN documented as of this encounter Mental Status * Does person have difficulty concentrating/remembering/making decisions? Answer Entry Date Author No 08/06/2014 2:19 PM LEGAL SERVICE SPECIALIST Erika Thornton, RN documented in this encounter Plan of Treatment Upcoming Encounters Date Type Department Care Team (Late st Contact Info) Description 06/26/2025 10:15 AM LEGAL SERVICE SPECIALIST Appointment [facility] [address] [place] [phone] Lazaro Gonzales MD [address] [place] [address] 06/26/2025 11:30 AM LEGAL SERVICE SPECIALIST Office Visit [facility] - [address] [facility] [place] [address] Lazaro Gonzales MD [address] [place] [phone] documented as of this encounter Procedures Procedure Name Priority Date/Time Associated Diagnosis Comments DERMATOPATHOLOGY Routine 11/21/2022 1:39 PM CDT documented in this encounter Results * DERMATOPATHOLOGY (11/21/2022 1:39 PM CDT) Case Report Dermatopathology Report Case: [id number] Authorizing Provider: Jyotsna Tineo DO Collected: 11/21/2022 01:39 PM Ordering Location: [facility] D[facility] Lab Received: 11/22/2022 12:49 [...] characteristic determined by the Dermatopathology Laboratory at [facility], directed by Dr. Blair Garcia. These tests need not be, and therefore are not, approved by the [place] Food and Drug Administration. The tests are used for clinical purposes. Billing Codes Specimen Charges Stain Charges 12212 1 3 4:14 PM CDT [facility] Embedded Images 3 4:14 PM CDT [facility] LAB[facility] Pathology/Cytolo gy TISSUE SPECIMEN FROM SKIN / Unknown 11/21/2022 1:39 PM CDT 11/22/2022 12:49 PM CDT Jyotsna Tineo DO LAB - PATHOLOGY/CYTOLOGY ORDERABLES Final Result DERMATOPATHOLOGY LABORATORY [facility] - Department of Dermatology [facility] [address] [place] [address], [address] Floor [place], [place] [phone] [place] [address] documented in this encounter Visit Diagnoses Not on filedocumented in this encounter Care Teams Melting Supervisor Relationship Specialty Start Date End Date Provider, No Pcp PCP - General 12/03/24 Marie Matias MD [address] [place] [address] Internal Medicine 11/23/21 documented as of this encounter
--- OUTSIDE RECORDS SUMMARY | 2025-01-21 12:34 | XMS_ITS | Clinical Summary ---
Author Organization [facility] Address [address] [place] [address] Care Team Providers Care Sales Representative [employer]omens [employer] Name Role Phone Parveen Escobar MD Primary Care Provider [phone] Allergies Active Allergy Reactions Criticality Noted Date [...] 2025 Insurance MEDICARE PART A AND B [facility] [id number] Member Subscriber Plan / Payer (Ef fective 2020-Present) Name:Jackie Waddell Relation to Subscriber:Self Name:Jackie Waddell Payer ID:[id number] (NAIC) Group ID:Not on file Type:Supplemental Address: [place] [phone] Care Teams Sales Representative [employer] Relationship Specialty Start Date End Date Parveen Escobar MD [address] [place] [phone] PCP - General Internal Medicine 10/15/20
--- OUTSIDE RECORDS SUMMARY | 2025-01-21 12:34 | XMS_ITS | Clinical Summary ---
Author Organization [facility] [address] Address [address] [place] [address] Care Team Providers Care Senior Storage Engineer Name Role Phone Pinky Louise MD Unavailable [phone] Mackenzie Tobin NP Unavailable [phone] Loki Viramontes MD Unavailable [phone] Frank Moses MD Unavailable [phone] Nicole Sierra NP Primary Care Provider [phone] Allergies Active Allergy Reactions Criticality Noted Date [...] 1 tablet (3 mg total) by mouth rouge sifter before breakfast Active aspirin 325 mg tabletIndicatio [...] 10/20/2022 Assessment & Plan (07/11/2024 3:34 PM LIVE GAMES DEALER): -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 as [...] (06/27/2022): Added automatically from request for surgery [id number] A-fib 02/14/2022 Assessment & Plan (10/11/2022 11:47 [...] (07/11/2019): Added automatically from request for surgery [id number] Coronary artery disease invo lving mcgrath coronary artery of mcgrath heart without angina pectoris 11/19/2018 Angina pectoris, unstable 11/07/2018 Overview (11/07/2018): Added automatically from request for surgery [id number] GI bleed 08/06/2018 Assessment & Plan (08/29/2020 [...] a associated with type 2 diabetes mellitus ([facility]) 07/21/2015 Overview (09/09/2016): Type 2 diabetes [...] fibrillation Assessment & Plan (07/11/2024 3:39 PM LIVE GAMES DEALER): -Persistent AF and bradycardia s/p dual chamber [...] EF 72%, fixed apical defect c/w prior MT. Assessment & Plan (08/28/2020 7:53 PM CDT): - TTE in 09/2018 w/ G3DD. Home metop XL 12.5, losartan 25, lasix 20. - PCI 2018 w/ 1 stent to LAD. MPI stress 05/2020 w/ EF 72%, fixed apical defect c/w prior MT. Essential hypertension 09/13/201910/20 Assessment & Plan (02/16/2022 [...] Encounters Date Type Department Care Team Description 01/14/2025 3:45 PM CDT Office Visit [facility] [address] [place] [address] [address]th [place] [address] [place] [address] Ignacio Obregon MD 01/14/2025 3:15 PM CDT Ancillary Procedure [facility] [address] [place] [address] 8th [place] [address] [place] [address] Sinus node dysfunction (HCC) (Primary Dx); Adjustment and management of cardiac pacemaker 11/11/2024 Orders Only [facility] [address] [place] [address] 8th [place] [address] [place] [address] Ignacio Obregon MD from Last 3 Months [...] e alcohol) Social Connection and Isolation Panel Answer Date Recorded In a typical week, how many times do you talk on the phone with family, friends, or neighbors? Three times a week 08/29/2022 How often do you get togethe r with friends or relatives? Three times a week 08/29/2022 How often do you attend chur or orthodoxy services? Never 08/29/2022 Do you belong to any clubs o r organizations such as jain groups, unions, fraternal or athletic groups, or [...] place to sleep or slept in a usp (including now)? No 08/29/2022 Personal Safety Answer Date Recorded Have you ever been in or are you currently in a harmful physical or emotional relationship or is someone making you feel afraid or unsafe? Denies 10/10/2022 Comments No Sex and Gender Information Value Date Recorded Sex Assigned at Not on file Legal Sex Female 2:00 AM LIVE GAMES DEALER Gender Identity Not on file Sexual Orientation Not on file Obstetrics History Last Filed Vital Signs Vital Sign Reading Time Taken Comments Blood Pressure 110/72 01/14/2025 3:25 PM CDT Pulse 102 01/14/2025 3:25 PM CDT Temperature 36.7 C (98.1 F) 04/14/2023 8:56 AM LIVE GAMES DEALER Respiratory Rate 18 06/20/2024 1:50 PM LIVE GAMES DEALER Oxygen Saturation 94% 01/14/2025 3:25 PM CDT Inhaled Oxygen Concentration - - Weight 70.5 kg (155 lb 6.4 oz) 01/14/2025 3:25 P M CDT Height 157.5 cm (5' 2) 01/14/2025 3:25 PM CDT Body Mass Index 28.42 01/14/2025 3:25 PM CDT Plan of Treatment Health Maintenance [...] 04/22/2025 04/22/2024, 02/04, 02/15/2022, Additional history exists Breast Cancer Screening-Mammogram Discontinued 021 Hepatitis B Screening Completed 04/09/2024 Medical Devices Implanted Type Area Video Tape Duplicator Device Identifier Shelf Expiration Date Model / Serial / Lot [employer] [id number] System 6-12fr Mvp Venous Closure Vascade - [id number] Implanted:Qt y: 1 on 08/28/2020 by Crow Gramajo MD at [facility] Collagen Left: Femoral [employer] 06/23/2022 [id number] / / [id number] Description:LFV sheath [employer] [id number] System 6-12fr Mvp Venous Closure Vascade - [id number] Implanted:Qt y: 1 on 08/28/2020 by Crow Gramajo MD at [facility] Collagen Right: Femoral [employer] 06/23/2022 [id number] / / [id number] Description:RFV sheath X 1 [employer] Tendril Sts 6fr 52cm Is-1 Connector Active Fixation Bipolar Soft /52 - [id number] - [id number] Implanted:Qt y: 1 on 10/10/2022 by Ignacio Obregon MD at [facility] Lead Right: Ventricle [employer] 08/02/20258TC/52 / [id number] / [employer] Tendril Sts 6fr 46cm Is-1 Connector Bipolar Active Fixation 46 - [id number] - [id number] Implanted:Qt y: 1 on 10/10/2022 by Ignacio Obregon MD at [facility] Lead Right: Atria [employer] 08/02/20252087TC/46 / [id number] / [employer] Joanne [id number] Device Closure Watchman Pebax Nitinol Bond Iridium Pet 24mm L75cm Od12 Fr [id number] Fr [address] Stopcock Y Adapter Self Expand Proximal Face Sterile Disposable Left Atrial Appendage - [id number] Implanted:Qt y: 1 on 08/28/2020 by Ignacio Obregon MD at [facility] Other - see comments Left: Heart [employer] Joanne 03/23/2022 [id number] / / [id number] Description:Left atrial appe ndage closure device with delivery system [employer] Assurity Mri [id number] Chamber Is-1 Connector Thk6mm Pacemaker [id number] - [id number] - [id number] Implanted:Qt y: 1 on 10/10/2022 by Ignacio Obregon MD at [facility] Pacemaker Right: Chest Wall [employer] 03/04/2024 [id number] / [id number] / [id number] Medtronic Keduo [employer] X [id number] Resolute [place] 3.5mm 2.1-2.7fr 18mm 140cm Rapid Exchange - [id number] Implanted:Qt y: 1 on 11/26/2018 by Ildefonso Barrios MD PhD at [facility] Stent Medtronic Inc 09/05/2020 [id number] / / [id number] [employer] Vascade Mvp 6-12fr Venous Closure [id number] - [id number] - [id number] Implanted:Qt y: 1 on 10/10/2022 by Ignacio Obregon MD at [facility] Vascular Closure Device Right: Femoral Vein [employer] 03/15/2024 [id number] / [id number] / [id number] Lens Bilateral: Eye Device Lizzy Watchman Procedure - [id number] Implanted:Qt y: 1 on 08/28/2020 by Ignacio Obregon MD at [facility] [employer] [id number] 1-3 PC / / Procedures Procedure Name Priority Date/Time Associated Diagnosis Comments DEVICE CHECK - REMOTE Routine 11/11/2024 4:00 AM CDT POCT LIPID PANEL Routine 04/22/2024 11:4 3 AM LIVE GAMES DEALER Lipid screening EGFR Routine 10/11/2022 4:40 AM [...] estimate based on prior usage) Presenting Rhythm (DE) Ventricular Sensing (VS) --- rate 60-100 Atrial [...] estimate based on prior usage) Presenting Rhythm (DE) Ventricular Sensing (VS) --- rate 60-100 Atrial Fibrillation or Flutter Arrhythmic events (AE) Longstanding persistent atrial fibrillation and/or flutter --- AT/AFburden: 100%. V rates > 110 bpm: 17% of the time during AF Anticoagulation (AC) Patient is status-post left atrial appendage occlusion device Patient is not on anticoagulant therapy Transmission Information (TI) Device Summary Report Ignacio Obregon MD CV [facility] Final Result * POCT lipid panel (04/22/2024 11:43 AM LIVE GAMES DEALER) [facility] Cholesterol, POC 119 mg/dL HDL, POC 35 mg/dL Triglycerides, POC 102 mg/dL LDL Cholesterol POC 64 mg/dL Chol/HDL Ratio, POC 1.9 Non-HDL Cholesterol, POC 85 mg/dL Cholesterol Total, POC 119 mg/dL Capillary blood 04/22/2024 1 1:43 AM LIVE GAMES DEALER Sindhu Patrick NP POINT OF CARE TEST ORDERA BLES Final Result * (ABNORMAL) eGFR (10/11/2022 4:40 AM CDT) [facility] eGFR 41(L) 90 - 130 mL/min/1. 73 [...] ORDERABLES Final R esult Performing Organization Address [facility] de Phone Number [facility] Department [place] [address] * (ABNORMAL) Hemoglobin A1c (08/28/2022 3:07 AM CDT) Hgb A1C 6.1(H) 4.0 - 5.6 % [facility] Estimated Average Glucose 128 mg/dL [facility] Comment: The ADA recommends reporting [...] ORDERABLES Final Re sult Performing Organization Address [facility] Co de Phone Number [facility] Department [place] [address] from Last 3 Months or Most Recently Relevant to Health Maintenance Insurance MEDICARE [facility] MEDICARE [facility] Member Subscriber Plan / Payer (Ef fective 2018-Present) Name:Jackie Waddell Relation to Subscriber:Self Name:Jackie Waddell Payer ID:[id number] Group ID:[id number] Type:COMMERCIAL Address: [facility] [address] [id number] MEDICARE [facility] MEDICARE MEDICARE MEDICARE [facility] Advance Directives For more information, please contact: [phone] * Full Code (Latest Code Status on [...] AM 11/07/2020 6:56 PM Care Teams Senior Storage Engineer Relationship Specialty Start Date End Date Nicole Sierra AGRICULTURE EXTENSION SPECIALIST [address] [facility] 1 [place] [address] PCP - General Nurse Practitioner 07/20/23 Pinky Louise MD Consulting Physician Gastroenterology 10/02/18 Mackenzie Tobin, ADRIANA [address] [facility] [address] [facility] 2 [place] [address] Nurse Practitioner Medical Oncology 02/09/22 [place] [address] [place] [address] Consulting Physician Urology 08/06/22 [place] [address] [place] [address] Consulting Physician Cardiology 08/06/22
--- OUTSIDE RECORDS SUMMARY | 2025-01-21 12:34 | XMS_ITS | Encounter Summary ---
Author Organization [facility] Address [address] [facility] [place] [address] Care Team Providers Care Solution Sales Senior Executive Name Role Phone Marie Matias MD Unavailable Provider, No Pcp Primary Care Provider Unavailab le Encounter Details Date Type Department Care Team (Late st Contact Info) Description 01/03/2023 Lab Requisition [facility] Lab [address] [facility] [place] [address] Jyotsna Tineo, [address] [facility] [address]L [place] [address] Social History Tobacco Use Types Packs/Day Years Used Date Smoking Tobacco: Never Smokeless Tobacco: Never Alcohol Use Standard Drinks/Week Comments No 0 (1 standard drink = 0.6 oz pur e alcohol) Comments Unknown Sex and Gender Information Value Date Recorded Sex Assigned at Not on file Legal Sex Female 5:48 AM WINDOWS TECHNICAL SPECIALIST Gender Identity Not on file Sexual [...] of Assessment Author No 08/06/2014 2:19 PM WINDOWS TECHNICAL SPECIALIST Erika Thornton, RN documented as of this encounter Mental Status * Does person have difficulty concentrating/remembering/making decisions? Answer Entry Date Author No 08/06/2014 2:19 PM WINDOWS TECHNICAL SPECIALIST Erika Thornton, RN documented in this encounter Plan of Treatment Upcoming Encounters Date Type Department Care Team (Late st Contact Info) Description 06/26/2025 10:15 AM WINDOWS TECHNICAL SPECIALIST Appointment [facility] [address] [place] [phone] Lazaro Gonzales MD [address] [place] [phone] 06/26/2025 11:30 AM WINDOWS TECHNICAL SPECIALIST Office Visit [facility] - [address] [facility] [place] [address] Lazaro Gonzales MD [address] [place] [phone] documented as of this encounter Procedures Procedure Name Priority Date/Time Associated Diagnosis Comments DERMATOPATHOLOGY Routine 01/03/2023 11:1 1 AM CDT documented in this encounter Results * DERMATOPATHOLOGY (01/03/2023 11:11 AM CDT) Case Report Dermatopathology Report Case: [id number] Authorizing Provider: Jyotsna Tineo DO Collected: 01/03/2023 [...] of a non-oriented ellipse of skin measuring 62h52y5 mm. The epidermal surface is unremarkable. The margin is inked green. The 12 o'clock and 6 o'clock tips are submitted in cassette 1. The remainder of the ellipse is serially sectioned and submitted in cassette 2-3. Jar 0. 3 5:22 PM [facility] DERMATOPATHOLOGY [facility]ORATORY Microscopic Description Specimen A. [...] determined by the Dermatopathology Laboratory at [facility], directed by Dr. Blair Garcia. These tests need not be, and therefore are not, approved by the [place] Food and Drug Administration. The tests are used for clinical purposes. Billing Codes Specimen Charges Stain Charges 69770 1 3 5:22 PM CDT DERMATOPATHOLOGY LABORATORY Embedded Images 3 5:22 PM CDT DERMATOPATHOLOGY LABORATORY Pathology/Cytolo gy TISSUE SPECIMEN FROM SKIN / Unknown 01/03/2023 11:11 AM CDT 01/03/2023 3:19 PM CDT us Jyotsna Tineo DO LAB - PATHOLOGY/CYTOLOGY ORDERABLES Final Result DERMATOPATHOLOGY LABORATORY [facility] - Department of Dermatology [address] [phone] documented in this encounter Visit Diagnoses Not on filedocumented in this encounter Care Teams Solution Sales Senior Executive Relationship Specialty Start Date End Date Provider, No Pcp PCP - General 12/03/24 Marie Matias MD [address] [place] [address] Internal Medicine 11/23/21 documented as of this encounter
--- OUTSIDE RECORDS SUMMARY | 2025-01-21 12:34 | XMS_ITS | Encounter Summary ---
Author Organization [facility] Address [address] [place] [address] Care Team Providers Care Loss Prevention Operations Manager Name Role Phone Marie Matias MD Unavailable [phone] Provider, No Pcp Primary Care Provider Unavailab le Encounter Details Date Type Department Care Team (Late st Contact Info) Description 10/15/2024 Lab Requisition [facility] Lab [address] [facility] [place] [address] Jyotsna Tineo, [address] [facility] [address]L [place] [address] Social History Tobacco Use Types Packs/Day Years Used Date Smoking Tobacco: Never Smokeless Tobacco: Never Alcohol Use Standard Drinks/Week Comments No 0 (1 standard drink = 0.6 oz pur e alcohol) Comments Unknown Sex and Gender Information Value Date Recorded Sex Assigned at Not on file Legal Sex Female 5:[address]ANSCRIBER Gender Identity Not on file Sexual Orientation [...] of Assessment Author No 08/06/2014 2:[address] TRANSCRIBER Erika Thornton, RN documented as of this encounter Mental Status * Does person have difficulty concentrating/remembering/making decisions? Answer Entry Date Author No 08/06/2014 2:[address] TRANSCRIBER Erika Thornton, RN documented in this encounter Plan of Treatment Upcoming Encounters Date Type Department Care Team (Late st Contact Info) Description 06/26/2025 10:[address] TRANSCRIBER Appointment [facility] [address] [place] [phone] Lazaro Gonzales MD [address] [place] [phone] 06/26/2025 11:[address] TRANSCRIBER Office Visit [facility] - [address] [facility] [place] [address] Lazaro Gonzales MD [address] [place] [phone] documented as of this encounter Goals [...] AM CDT) Case Report Dermatopathology Report Case: [id number] Authorizing Provider: Jyotsna Tineo DO Collected: 10/15/2024 10:25 AM Ordering Location: [facility] Physician [facility] - Received: 10/16/2024 07:34 AM DermPath [...] characteristic determined by the Dermatopathology Laboratory at [facility], directed by Dr. Blair Garcia. These tests need not be, and therefore are not, approved by the [place] Food and Drug Administration. The tests are used for clinical purposes. Billing Codes Specimen Charges Stain Charges 45968 1 4:28 PM CDT DERMATOPATHOLOGY LABORATORY Embedded Images 4:28 PM CDT DERMATOPATHOLOGY LABORATORY Pathology/Cytolo gy TISSUE SPECIMEN FROM SKIN / Unknown 10/15/2024 10:25 AM CDT 10/16/2024 7:34 AM CDT us Jyotsna Tineo DO LAB - PATHOLOGY/CYTOLOGY ORDERABLES Final Result DERMATOPATHOLOGY LABORATORY [facility] - Department of Dermatology [address] [phone] documented in this encounter Visit Diagnoses Not on filedocumented in this encounter Care Teams Loss Prevention Operations Manager Relationship Specialty Start Date End Date Provider, No Pcp PCP - General 7/1/25 Marie Matias MD [address] [place] [address] Internal Medicine 11/23/21 documented as of this encounter
== END 2025-01-21 12:31 | disposition home or self-care (01) ==
PROVIDERS: PCP Nurse Practitioner Family; Visit Provider Internal Medicine Critical Care Medicine
DX: R91.1 Solitary pulmonary nodule (principal)
CPT/HCPCS: 78815; A9552

== ENCOUNTER 2025-03-31 12:47 | Outpatient (CLI) | payer MEDICARE, SELFPAY ==
--- NOTE | ~2025-03-31 | CT_ITS ---
EXAMINATION: CT brain wo con DATE: 03/31/2025 13:14 INDICATION: Fall 2 weeks ago. Left-side of head. Dizziness TECHNIQUE: Computed tomography (CT) of the head was performed without intravenous contrast. The dose-length product was 605.33 mGy-cm. COMPARISON: None FINDINGS: No acute intracranial hemorrhage. No mass effect. No midline shift. No hydrocephalus. No skull fracture. Visualized paranasal sinuses mastoid air cells are clear. There are several low density regions scattered throughout the periventricular and deep white matter which are favored to represent chronic ischemic white matter change. IMPRESSION: 1. No acute intracranial hemorrhage. No mass effect. 2. Probable chronic ischemic white matter change. If symptoms persist or worsen, consider a short-term follow-up study or additional imaging for further assessment. Reviewed, dictated and finalized at location Q. IMPRESSION: 1. No acute intracranial hemorrhage. No mass effect. 2. Probable chronic ischemic white matter change. If symptoms persist or worsen, consider a short-term follow-up study or additio nal imaging for further assessment.
--- NOTE | ~2025-03-31 | XR_ITS ---
EXAMINATION: XR ribs BI 3V w CXR 2V, 03/31/2025 13:20 CDT HISTORY: W19.XXXA - Unspecified fall, initial encounter COMPARISON: No comparisons available. Findings: No acute fracture or malalignment. Mild cardiomegaly. Mild pulmonary venous congestion. No significant degenerative changes. Within the soft tissues there are calcified focus in the left breast the largest 1 x 1 cm incompletely characterized, correlate with mammogram and ultrasound Left pacemaker. Impression: CHF. No fracture identified. Calcified left breast lesions, please see above Reviewed, dictated and finalized at location P. Impression: CHF. No fracture identified. Calcified left breast lesions, please see above
--- OUTSIDE RECORDS SUMMARY | 2025-03-31 14:10 | XMS_ITS | Encounter Summary ---
Author Organization [facility] Address [address] [place], [place] [address] [address] Care Team Providers Care Senior Ecologist Name Role Phone Marie Matias MD Unavailable [phone] Provider, No Pcp Primary Care Provider Unavailab le Reason for Visit * Reason Comments Medication Problem Encounter Details Date Type Department Care Team (Late st Contact Info) Description 10/18/2023 Telephone [facility] - [address] [place] [place] [phone] Mariela Mcallister RN Medication Problem Social History Tobacco Use Types Packs/Day Years Used Date Smoking Tobacco: Never Smokeless Tobacco: Never Alcohol Use Standard Drinks/Week Comments No 0 (1 standard drink = 0.6 oz pur e alcohol) Comments Unknown Sex and Gender Information Value Date Recorded Sex Assigned at Not on file Legal Sex Female 5:48 [address] PLANE CAPTAIN Gender Identity Not on file Sexual Orientation [...] of Assessment Author No 08/06/2014 2:[address] CAPTAIN Erika Thornton, RN documented as of this encounter Mental Status * Does person have difficulty concentrating/remembering/making decisions? Answer Entry Date Author No 08/06/2014 2:[address] CAPTAIN Erika Thornton RN documented in this encounter Miscellaneous Notes * Telephone Encounter - Mariela Mcallister RN - 10/18/2023 2:15 PM CDT Call received from pt to report f/u with wildlife rehabilitator. Inquired about a change in medication from metoprolol succinate to carvedilol BID. Nurse Midwife prefers pt to stay on metoprolol succinate. Dr. Gonzales notified. documented in this encounter Plan of Treatment Upcoming Encounters Date Type Department Care Team (Late st Contact Info) Description 06/26/2025 10:[address] CAPTAIN Appointment [facility] [address] [place] [address] Lazaro Gonzales MD [address] [place] [phone] 06/26/2025 11:[address] CAPTAIN Office Visit [facility] - [address] [facility], [place] [address] Lazaro Gonzales MD [address] [place] [phone] documented as of this encounter Visit Diagnoses Not on filedocumented in this encounter Care Teams Senior Ecologist Relationship Specialty Start Date End Date Provider, No Pcp PCP - General 12/03/24 Marie Matias MD [address] [place] [phone] Internal Medicine 11/23/21 documented as of this encounter
--- OUTSIDE RECORDS SUMMARY | 2025-03-31 14:10 | XMS_ITS | Clinical Summary ---
Author Organization [facility] Address [address] [place] [address] Care Team Providers Care Community Specialist Name Role Phone Unavailable Primary Care Provider [...] 75+ series) 2021 COVID-19 Vaccine (3 - 2024-2 6 season) 2025 09/08/2020, 07/08/2020 Influenza Adult (#1) 2025 Hepatitis A Vaccines Aged Out No long er eligible based on patient's age to complete this topic Meningococcal B Vaccine Aged Out No l onger eligible based on patient's age to complete this topic Meningococcal Vaccine Aged Out No kurt geremias eligible based on patient's age to complete this topic RSV Immunizations Under 20 Months Aged Out No longer eligible b ased on patient's age to complete this topic
--- OUTSIDE RECORDS SUMMARY | 2025-03-31 14:10 | XMS_ITS | Encounter Summary ---
Author Organization [facility] Address [address] [facility] [place] [address] Care Team Providers Care Feed Research Technician Name Role Phone Marie Matias MD Unavailable [phone] Provider, No Pcp Primary Care Provider Unavailab le Encounter Details Date Type Department Care Team (Late st Contact Info) Description 11/22/2022 Lab Requisition [facility] - DermPath Lab [address] [facility], [place] [address] Jyotsna Tineo, [address] [facility] 3L [place] [address] Social History Tobacco Use Types Packs/Day Years Used Date Smoking Tobacco: Never Smokeless Tobacco: Never Alcohol Use Standard Drinks/Week Comments No 0 (1 standard drink = 0.6 oz pur e alcohol) Comments Unknown Sex and Gender Information Value Date Recorded Sex Assigned at Not on file Legal Sex Female 5:48 AM GREY TENDER Gender Identity Not on file Sexual Orientation [...] of Assessment Author No 08/06/2014 2:19 PM GREY TENDER Erika Thornton, RN documented as of this encounter Mental Status * Does person have difficulty concentrating/remembering/making decisions? Answer Entry Date Author No 08/06/2014 2:19 PM GREY TENDER Erika Thornton, RN documented in this encounter Plan of Treatment Upcoming Encounters Date Type Department Care Team (Late st Contact Info) Description 06/26/2025 10:15 AM GREY TENDER Appointment [facility] [address] [place] [phone] Lazaro Gonzales MD [address] [place] [phone] 06/26/2025 11:30 AM GREY TENDER Office Visit [facility] - [address] [facility], [place] [address] Lazaro Gonzales MD [address] [place] [phone] documented as of this encounter Procedures Procedure Name Priority Date/Time Associated Diagnosis Comments DERMATOPATHOLOGY Routine 11/21/2022 1:39 PM CDT documented in this encounter Results * DERMATOPATHOLOGY (11/21/2022 1:39 PM CDT) Case Report Dermatopathology Report Case: [id number] Authorizing Provider: Jyotsna Tineo DO Collected: 11/21/2022 01:39 PM Ordering Location: [facility] DermPath Lab Received: 11/22/2022 12:49 PM [...] purposes. Billing Codes Specimen Charges Stain Charges [id number] 1 3 4:14 PM CDT DERMATOPATHOLOGY LABORATORY Embedded Images 3 4:14 PM CDT DERMATOPATHOLOGY LABORATORY Pathology/Cytolo gy TISSUE SPECIMEN FROM SKIN / Unknown 11/21/2022 1:39 PM CDT 11/22/2022 12:49 PM CDT Jyotsna Tineo DO LAB - PATHOLOGY/CYTOLOGY ORDERABLES Final Result DERMATOPATHOLOGY LABORATORY [facility] - Department of Dermatology [facility] [address] [place] [address], [address] [place], [place] [phone] [place] [address] documented in this encounter Visit Diagnoses Not on filedocumented in this encounter Care Teams Feed Research Technician Relationship Specialty Start Date End Date Provider, No Pcp PCP - General 12/03/24 Marie Matias MD [address] [place] [address] Internal Medicine 11/23/21 documented as of this encounter
--- OUTSIDE RECORDS SUMMARY | 2025-03-31 14:10 | XMS_ITS | Encounter Summary ---
Author Organization [facility] Address [address] [facility] [place] [address] Care Team Providers Care Raw Stock Dyeing Machine Tender Name Role Phone Marie Matias MD Unavailable [phone] Provider, No Pcp Primary Care Provider Unavailab le Encounter Details Date Type Department Care Team (Late st Contact Info) Description 10/15/2024 Lab Requisition [facility] - DermPath Lab [address] [facility], [place] [address] Jyotsna Tineo, [address] [facility] 3L [place] [address] Social History Tobacco Use Types Packs/Day Years Used Date Smoking Tobacco: Never Smokeless Tobacco: Never Alcohol Use Standard Drinks/Week Comments No 0 (1 standard drink = 0.6 oz pur e alcohol) Comments Unknown Sex and Gender Information Value Date Recorded Sex Assigned at Not on file Legal Sex Female 5:48 AM MOBILE APPLICATION TESTER Gender Identity Not on file Sexual Orientation [...] of Assessment Author No 08/06/2014 2:19 PM MOBILE APPLICATION TESTER Erika Thornton, RN documented as of this encounter Mental Status * Does person have difficulty concentrating/remembering/making decisions? Answer Entry Date Author No 08/06/2014 2:19 PM MOBILE APPLICATION TESTER Erika Thornton, RN documented in this encounter Plan of Treatment Upcoming Encounters Date Type Department Care Team (Late st Contact Info) Description 06/26/2025 10:15 AM MOBILE APPLICATION TESTER Appointment [facility] [address] [place] [phone] Lazrao Gonzales MD [address] [place] [phone] 06/26/2025 11:30 AM MOBILE APPLICATION TESTER Office Visit [facility] - [address] [facility], [place] [address] Lazaro Gonzales MD [address] [place] [phone] documented as of this encounter Goals [...] AM CDT) Case Report Dermatopathology Report Case: [id number] Authorizing Provider: Jyotsna Tineo DO Collected: 10/15/2024 10:25 AM Ordering Location: [facility] Physician [facility] - Received: 10/16/2024 07:34 AM DermPath Lab [...] by the Dermatopathology Laboratory at [facility], directed by Dr. Blair Garcia. These tests need not be, and therefore are not, approved by the [place] Food and Drug Administration. The tests are used for clinical purposes. Billing Codes Specimen Charges Stain Charges 39156 1 4:28 PM CDT DERMATOPATHOLOGY LABORATORY Embedded Images 4:28 PM CDT DERMATOPATHOLOGY LABORATORY Pathology/Cytolo gy TISSUE SPECIMEN FROM SKIN / Unknown 10/15/2024 10:25 AM CDT 10/16/2024 7:34 AM CDT us Jyotsna Tineo DO LAB - PATHOLOGY/CYTOLOGY ORDERABLES Final Result DERMATOPATHOLOGY LABORATORY [facility] - Department of Dermatology [address], [address] [phone] documented in this encounter Visit Diagnoses Not on filedocumented in this encounter Care Teams Raw Stock Dyeing Machine Tender Relationship Specialty Start Date End Date Provider, No Pcp PCP - General 7/1/25 Marie Matias MD [address] [place] [address] Internal Medicine 11/23/21 documented as of this encounter
--- OUTSIDE RECORDS SUMMARY | 2025-03-31 14:10 | XMS_ITS | Clinical Summary ---
Author Organization [facility] Address [address] [facility] [address] [place] [address] Care Team Providers Care Respiratory Care Technician Name Role Phone Marie Matias MD Unavailable [phone] Provider, No Pcp Primary Care Provider Unavailab le Source Comments [facility],non-owned Affiliates and Associated Physician Practices is amultiple site organization consisting of ambulatory clinics and hospital sitesin [place], [place], [place] and [place]. This disclosure is being madepursuant to the Care Everywhere program and may not contain all information available regarding this patient. Last updated 18.[facility] Allergies No known active allergies Medications * [...] 1 Tab by mouth once daily. Active [place]-3 Fatty Acids 1200 MG CAPS Take 1 [...] rybelsus -SSI Coronary artery disease invo lving [place] coronary artery of [place] heart without angina pectoris 11/19/2018 09/21/2023 Angina pectoris, unstable 11/07/20182023 Overview (09/21/2023): Added automatically from request for surgery [id number] H/O TIA (transient ischemic attack) and stroke [...] Pain in joint, shoulder region 06/27/2013 Immunizations Immunization Administration Dates Next Due HEP [...] on file Legal Sex Female 5:48 AM SYSTEMS NAVIGATOR Gender Identity Not on file Sexual Orientation [...] st Contact Info) Description 06/26/2025 10:15 AM SYSTEMS NAVIGATOR Appointment [facility] [address] [place] [address] Lazaro Gonzales MD [address] [place] [phone] 06/26/2025 11:30 AM SYSTEMS NAVIGATOR Office Visit [facility] [address] [place] [address], [place] [address] Lazaro Gonzales MD [address] [place] [phone] Health Maintenance Due Date Last Done [...] EXAM WITH MONOFILAMENT 09/21/2023 DIABETES-HGB A1C 09/21/2023 03/30/2015, , 03/12/2014, Additional history exists HEPATITIS B VACCINE (2 of 3 - Hep B Twinrix risk 3-dose series) 05/07/2024 04/09/2024 DEPRESSION SCREENING 06/05/2024 DIABETES - URINE PROTEIN SCREENING 06/05/2024 03/12/2014, 04/30/2013 HEPATITIS A VACCINE (2 of 2 - Risk 2-dose series) 10/07/2024 04/09/2024 COVID-19 VACCINE (3 - 2024- season) 2025 09/08/2020, 07/08/2020 INFLUENZA VACCINE (#1) 2025 DIABETES-SERUM CREATININE 12/05/20252024, 04/09/2024, 09/19/2023, Additional history exists HIB VACCINE Aged Out No longer eligi [...] track( 025 1:35 PM CDT) No Lizzie Valente RN Note: Expected end date: ongoing Interventions: Take all medications as prescribed Procedures Procedure Name Priority Date/Time Associated Diagnosis Comments COMPREHENSIVE METABOLIC PANEL Routine 12/05/2024 11:27 AM CDT Abnormal finding on imaging of liver Hepatic fibrosis HEMOGLOBIN A1C Routine 03/30/2015 12:13 PM CDT Diabetes mellitus type II, controlled, with no complications MICROALBUMIN URINE RANDOM Routine 03/12/2014 11:04 AM CDT Type Ii Or Unspecified Type Diabetes Mellitus Without Mention Of Complication, Not Stated As Uncontrolled Fatigue Hypertension from Last 3 Months or Most Recently Relevant to Health Maintenance Results * (ABNORMAL) COMPREHENSIVE METABOLIC PANEL (12/05/2024 11:27 AM CDT) BUN 25 7 - 26 mg/dL 12/05/2024 12:16 PM [facility] Creatinine 1.22(H) 0.56 - 0.96 mg/dL 12/05/2024 12:16 PM [facility] Sodium 139 136 - 145 mmol/L 12/05/2024 12:16 PM [facility] Potassium 3.5 3.5 - 4.5 mmol/L 12/05/2024 12:16 PM [facility] Chloride 105 98 - 107 mmol/L 12/05/2024 12:16 PM [facility] CO2 30(H) 22 - 29 mmol/L 12/05/2024 12:16 PM [facility] Glucose 136(H) 70 - 99 mg/dL 12/05/2024 12:16 PM [facility] Calcium 9.1 8.4 - 10.2 mg/dL 12/05/2024 12:16 PM [facility] Protein Total 7.4 6.0 - 8.3 [...] (2020), per the National Kidney Foundation and Citizen Of [place] Society of Nephrology recommendations. Blood BLOOD SPECIMEN / Unknown Lab Venipuncture / Unknown 12/05/2024 11:27 AM CDT 12/05/2024 11:40 AM CDT us Lazaro Gonzales MD LAB - CHEMISTRY ORDERABLES Fi nal Result [address] [address], [facility] [phone] * (ABNORMAL) HEMOGLOBIN A1C (03/30/2015 12:13 PM CDT) Hemoglobin A1c 7.4(H) 4.2 - 5.8 % 03/30/2015 10:32 PM CDT [facility] Estimated Average Glucose 166 mg/dL 03/30/2015 10:32 PM CDT [facility] Whole Blood BLOOD SPECIMEN WITH EDTA / Unknown Venipuncture / Unknown 03/30/2015 12:13 PM CDT 03/30/2015 12:21 PM CDT Narrative [facility] - 03/30/2015 10:32 PM CDT [place] Diabetes Association recommended the following cutoff levels: [...] disease. Ordering Provider Unlisted MD LAB - CHEMISTRY OR DERABLES Final Result Performing Organization Address City/[facility]/ZIP Co de Phone Number [facility] [address] * MICROALBUMIN URINE RANDOM (03/12/2014 11:04 AM CDT) Microalbumin Urine 20.0 0.0 - 20.0 mg/dL 03/12/2014 12:50 PM CDT [facility] Urine URINE / Unknown Venipuncture / Unknown 03/12/2014 11:04 AM CDT 03/12/2014 11:16 AM CDT Dk Kong MD LAB - URINE CHEMISTRY ORDERA BLES Final Result Performing Organization Address [facility] Co de Phone Number [facility] [address] from Last 3 Months or Most Recently Relevant [place] [id number] MEDICARE [facility] MEDICARE [facility] MEDICARE [facility] MEDICARE [facility] Advance Directives * Full Code (Latest Code Status on File) Date Activated Date Inactivated Comments 08/04/2014 10:20 PM 08/06/2014 5:15 PM Care Teams Respiratory Care Technician Relationship Specialty Start Date End Date Provider, No Pcp PCP - General 12/03/24 Marie Matias MD [address] [place] [address] Internal Medicine 11/23/21
--- OUTSIDE RECORDS SUMMARY | 2025-03-31 14:10 | XMS_ITS | Clinical Summary ---
Author Organization [facility] Address [address] [place] [address] Care Team Providers Care Clinical Research Coordinator Name Role Phone Parveen Escobar MD Primary Care Provider [phone] Allergies Active Allergy Reactions Criticality Noted Date [...] 1-dose 75+ series) 2021 INFLUENZA VACCINE (#1) 2025 COVID-19 Vaccine (2 - 2024- season) 02/03/202508/2020 Insurance MEDICARE PART A AND B [facility] [id number] Care Teams Clinical Research Coordinator Relationship Specialty [place] [address] [place] [phone] PCP - General Internal Medicine 10/15/20
--- OUTSIDE RECORDS SUMMARY | 2025-03-31 14:10 | XMS_ITS | Encounter Summary ---
Author Organization [facility] Address [address] [facility] [place] [address] Care Team Providers Care Med Admin Name Role Phone Marie Matias MD Unavailable [phone] Provider, No Pcp Primary Care Provider Unavailab le Encounter Details Date Type Department Care Team (Late st Contact Info) Description 01/03/2023 Lab Requisition [facility] - DermPath Lab [address] [facility], [place] [address] Jyotsna Tineo, [address] [facility] 3L DE[place] [address] Social History Tobacco Use Types Packs/Day Years Used Date Smoking Tobacco: Never Smokeless Tobacco: Never Alcohol Use Standard Drinks/Week Comments No 0 (1 standard drink = 0.6 oz pur e alcohol) Comments Unknown Sex and Gender Information Value Date Recorded Sex Assigned at Not on file Legal Sex Female 5:48 AM HOUSEMAN Gender Identity Not on file Sexual Orientation [...] of Assessment Author No 08/06/2014 2:19 PM rEika Canela RN * Does person have difficulty doing errands alone? Answer Date of Assessment Author No 08/06/2014 2:19 PM HOUSEMAN Erika Thornton, RN documented as of this encounter Mental Status * Does person have difficulty concentrating/remembering/making decisions? Answer Entry Date Author No 08/06/2014 2:19 PM HOUSEMAN Erika Thornton, RN documented in this encounter Plan of Treatment Upcoming Encounters Date Type Department Care Team (Late st Contact Info) Description 06/26/2025 10:15 AM HOUSEMAN Appointment [facility] [address] [place] [phone] Lazaro Gonzales MD [address] [place] [phone] 06/26/2025 11:30 AM HOUSEMAN Office Visit [facility] - [address] [facility], [place] [address] Lazaro Gonzales MD [address] [place] [phone] documented as of this encounter Procedures Procedure Name Priority Date/Time Associated Diagnosis Comments DERMATOPATHOLOGY Routine 01/03/2023 11:1 1 AM CDT documented in this encounter Results * DERMATOPATHOLOGY (01/03/2023 11:11 AM CDT) Case Report Dermatopathology Report Case: [id number] Authorizing Provider: Jyotsna Tineo DO Collected: 01/03/2023 11:11 AM Ordering Location: [facility] Received: 01/03/2023 03:19 PM Pathologist: [...] of a non-oriented ellipse of skin measuring 93j63p5 mm. The epidermal surface is unremarkable. The margin is inked green. The 12 o'clock and 6 o'clock tips are submitted in cassette 1. The remainder of the ellipse is serially sectioned and submitted in cassette 2-3. Jar 0. 3 5:22 PM [facility] DERMATOPATHOLOGY LABORATORY Microscopic Description Specimen A. SKIN, [...] purposes. Billing Codes Specimen Charges Stain Charges [id number] 1 3 5:22 PM CDT DERMATOPATHOLOGY LABORATORY Embedded Images 3 5:22 PM CDT DERMATOPATHOLOGY LABORATORY Pathology/Cytolo gy TISSUE SPECIMEN FROM SKIN / Unknown 01/03/2023 11:11 AM CDT 01/03/2023 3:19 PM CDT us Jyotsna Tineo DO LAB - PATHOLOGY/CYTOLOGY ORDERABLES Final Result DERMATOPATHOLOGY LABORATORY [facility] - Department of Dermatology [address], [address] [phone] documented in this encounter Visit Diagnoses Not on filedocumented in this encounter Care Teams Med Admin Relationship Specialty Start Date End Date Provider, No Pcp PCP - General 12/03/24 Marie Matias MD [address] [place] [address] Internal Medicine 11/23/21 documented as of this encounter
[2025-03-31 15:02] LABS: Hematocrit 40.1 % (37.0-47.0); Hemoglobin 12.6 g/dL (12.0-15.0); Immature Granulocyte Percent A 0.4 % (0-0.5); Immature Platelet Fraction Pct 10.7 % (0.9-11.2); Lymphocytes Absolute Auto 1.39 K/mm3 (0.9-3.2); Mean Corpuscular HGB Conc 31.4 g/dl (32-36); Mean Corpuscular Hemoglobin 28.3 pg (26-34); Mean Corpuscular Volume 89.9 fl (80-100); Nucleated Red Blood Cells Absolute Auto 0.000 K/mm3 (0.0-0.012); Nucleated Red Blood Cells Perc 0.0 % (0.0-0.2); Platelet Count Result 100 k/mm3 (150-375); Red Blood Count 4.46 M/mm3 (4.2-5.4); White Blood Count 9.5 K/mm3 (4.5-10.0)
[2025-03-31 15:21] LABS: Alanine Aminotransferase 12 U/L (6-35); Albumin Level 4.1 g/dL (3.5-5.1); Alkaline Phosphatase 133 U/L (38-126); Anion Gap 9 mmol/L (4-12); Aspartate Amino Transferase 28 U/L (14-36); Bilirubin,Total 0.7 mg/dL (0.2-1.3); Blood Urea Nitrogen 24 mg/dL (7-17); Calcium 9.2 mg/dL (8.4-10.2); Carbon Dioxide 30 mmol/L (22-30); Chloride 99 mmol/L (98-107); Estimated Glomerular Filt Rate 44; Glucose 106 mg/dL (65-110); Potassium 4.0 mmol/L (3.4-5.0); Sodium 138 mmol/L (137-145); Total Protein 7.6 g/dL (6.3-8.2)
== END 2025-03-31 12:48 | disposition home or self-care (01) ==
PROVIDERS: PCP Nurse Practitioner Family; Visit Provider Nurse Practitioner Family
DX: R07.89 Other chest pain (principal); R40.0 Somnolence; W19.XXXA Unspecified fall, initial encounter
CPT/HCPCS: 36415; 70450; 71046; 71110; 80053; 85025; 85055